=== PATIENT | male | born 1940 ===

== ENCOUNTER 2024-02-12 20:55 | Inpatient (IN) | payer MEDICARE, SELFPAY ==
--- NOTE | ~2024-02-12 | CT_ITS ---
EXAMINATION: CT HEAD WITHOUT CONTRAST CLINICAL INFORMATION: Altered mental status. COMPARISON: None available. TECHNIQUE: Contiguous axial imaging was performed from the skull base to vertex without intravenous administration of contrast. Multiplanar reformatted images and is submitted. This CT examination was performed using dose optimization techniques as appropriate, variously including the following: *Automated exposure control *Adjustment of mA and/or kV according to patient size (this includes techniques or standardized protocols for targeted exams where dose is matched to indication/reason for exam; i.e. extremities or head) *Use of iterative reconstruction technique DLP: A 73 mGy-cm FINDINGS: There is no acute intracranial hemorrhage or evidence of territorial infarction. No abnormal mass effect or midline shift is seen. Tompkins to white matter differentiation is well preserved. There is moderate patchy low attenuation change in the periventricular white matter spaces. The ventricles and sulci show proportional widening, commensurate with advanced age. No extra-axial fluid collections are identified. The calvarium and scalp soft tissues are normal. The middle ear cavity and mastoid air cells are clear. There is opacification of several of the bilateral ethmoid air cells. The remaining visualized paranasal sinuses are clear. CT/CT head/brain wo IV con IMPRESSION: 1. No acute intracranial pathology. 2. There is patchy low attenuation change in the periventricular white matter spaces, commonly associated with chronic microangiopathy. 3. There is bilateral ethmoid sinusitis. Electronically signed by: Chiki Luna MD 02/14/2024 10:40 PM EDT
[2024-02-12 21:41] VITALS: BMI 22.8
--- NOTE | 2024-02-12 22:39 | PC.ADMIT ---
pt arrived via stretcher at 211902-12-24 with [address] pt is a hospital to hospital transfer. he was previously at [facility] in [place]. originally pt has sent t0 rust from [facility] d/t concerns of disinhibited behaviors. as per medical record pt had made threats to staff which he claimed he would use weapons to hurt them. pt is awake and is able to only state his name correctly. he is profoundly confused.. pt is unable to give an meaningful information other than his name. he does not know his birthday. previous medical hx will be extracted from medical record. pt is pleasant and cooperative. he will follow simple command. he responds in simple 1-2 word responses. skin surfaces inspected by myself and franklin oliva RN. there are numerous bruises noted on skin surfaces of upper extremities. a foam dsg is noted on right forearm and inspection of area reveals a small full thickness wounds which has the appearance of an avulsion. a clonidine patch is noted on right arm. skin turgor has decreased elastic rebound and oral mucosa is desiccated. pt looks dry. he is given a sip of bottled water and has difficulty swallowing. vss 97.2 p 73 rr 16 95% 159/77 resp effort is regular unlabored. abdomen flat/soft/nontender. scrotum is swollen and soft. also of interest is left wrist is in a soft splint. unfortunately pt experienced distal radius fx (fx 6 weeks old) left hand fingers are warm to touch and pt is able to wiggle fingers on left hand.no edema of legs noted. dr wharton notified of admission.
--- NOTE | 2024-02-13 01:54 | PC.NURSE ---
pt agitated and stating that he is going to murder me. pt has fist clenched and attempted to punch at me with closed fist. trazadone and risperidal ground and placed in chocolate ice cream. pt spit medication out stating get the fuck away from me. 1 to [address],.
[2024-02-13 08:15] LABS: Estimated Average Glucose 94 mg/dL; Hemoglobin A1C 126.2659 umol/L; Hemoglobin A1c % 4.9 % (<6.0); Total Hemoglobin (HGBA1C) 4197.6818 umol/L
[2024-02-13 08:17] VITALS: BP 170/87; PULSE 85; RESP 24; TEMP 37.1; O2SAT 92
[2024-02-13 08:24] LABS: Alanine Aminotransferase 29 U/L (0-40); Alkaline Phosphatase 83 U/L (39-117); Anion Gap 17 (12-20); Aspartate Amino Transferase 25 U/L (5-37); Bilirubin Total 1.3 mg/dL (0.0-1.0); Blood Urea Nitrogen 24 mg/dL (9-16); Calcium 9.7 mg/dL (8.4-10.2); Carbon Dioxide 20 mmol/L (22-29); Chloride 107 mmol/L (96-108); Cholesterol 149 mg/dL (<200); Creatinine Clr Calc Pharmacy 83.1; Estimated Glomerular Filt Rate > 60; Glucose Fasting 84 mg/dL (60-99); HDL Cholesterol 38 mg/dL (>40); LDL Cholesterol Calculated 95 mg/dL (<100); Potassium 4.1 mmol/L (3.3-5.1); Sodium 140 mmol/L (135-145); Total Protein 6.5 g/dL (6.5-8.0); Triglycerides 84 mg/dL (<150)
[2024-02-13] MEDS: Miconazole Nitrate 2% Powder 85 GM Bottle 1 APPL TOPICAL (08:58)
--- NOTE | 2024-02-13 09:51 | HO.PSYADMNOT ---
HPI Date of Service: 02/12/24 Chief Complaint: Psych Sources of Information: patient interviewed, chart reviewed and crisis/core team assessment reviewed HPI Subjective Notes: Section 12B Narrative: Mr. Yung is an 83 year-old male who was initially brought to [facility] from [facility]) due to increase confusion. He was transferred to [facility] due to head CT showing possible subarachnoid hemorrhage. Repeat head CT and MRI at [facility] showed no acute territorial infarct, space-occupying lesion, or intracranial hemorrhage and no evidence of a right frontal hyperdensity. He was medically admitted due to increase confusion, speech mostly non sensical. Labs on 02/06/2024 included cbc with no leukocytosis; CMP with no electrolyte abnormalities, BUN 12, Cr 0.81. ALT 17, AST 22. UA without sign of UTI. Utox negative. He had episode of urinary retention which resolved. Medical records from [facility] describes pt as having combative behaviors, kicking, spitting, not ambulating. He required IM medication but it appears that olanzapine low dose was overly sedation. He did not take oral medications. BP pressured noted to be elevated. He was started on clonidine patch. He was not seem by neurology while at [facility]. On the unit, pt was in bed, mumbles, few clear words. He said to this senior technical writer I need to talk with Sesar. He them mumbled. When asked following questions to elaborate, he then says few other words unrelated to his initial statement. He smiles at times. He is lying in bed. Not able to follow most commands. Later he presented slightly more talkative, able to say that he has children who are in [place]. He was not able to tell name of his . 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 He does not know where he is nor the situation. He is not able to tell the month or year. He is alert, in bed, not ambulating. Past Psychiatric History: Inpt: none OP: none Medical Evaluation Reviewed: Yes [facility] Medical History Hypertension Dementia with behavioral disturbance Family History: unknown Social History: Pt originally from [place]. He has Diagnostics Vital Signs (24Hr): Vital Signs - 24 hr 02/13/24 08:17 Temperature 98.8 F Pulse Rate 85 Respiratory Rate 24 H Blood Pressure 170/87 H Pulse Oximetry 92 Oxygen Delivery Method Room Air BMI result Body Mass Index 22.8 Labs 02/14/24 11:10 02/14/24 11:10 Labs: Laboratory Results - last 48 hr 02/13/24 07:39 Sodium 140 Potassium 4.1 Chloride 107 Carbon Dioxide 20 L Anion Gap 17 BUN 24 H Creatinine 0.74 Estim Creat Clear Calc 83.1 Estimated GFR > 60 Fasting Glucose 84 Estimat Average Glucose 94 Hemoglobin A1c % 4.9 Calcium 9.7 Total Bilirubin 1.3 H AST 25 ALT 29 Alkaline Phosphatase 83 Total Protein 6.5 Albumin 4.0 Triglycerides 84 Cholesterol 149 LDL Cholesterol, Calc 95 HDL Cholesterol 38 L Meds/Allergies Meds Home Medications ?Medication ?Instructions ?Recorded ?Confirmed ?Type acetaminophen 325 mg tablet 650 mg PO Q6H PRN Headache/Pain 02/14/24 02/14/24 History (Scale Score 1-3) aluminum-mag hydroxide-simethicone 30 ml PO Q6H PRN Constipation 02/14/24 02/14/24 History 200 mg-200 mg-20 mg/5 mL oral susp magnesium hydroxide 400 mg/5 mL 30 ml PO DAILY PRN Constipation 02/14/24 02/14/24 History oral suspension (Milk of Magnesia) nicotine (polacrilex) 4 mg gum 4 mg buccal Q2H PRN Nicotine 02/14/24 02/14/24 History Cravings trazodone 50 mg tablet 25 mg PO BEDTIME PRN Insomnia 02/14/24 02/14/24 History Allergies Allergies Allergy/AdvReac Type Severity Reaction Status Date / Time No Known Allergies Allergy Verified 02/12/24 21:44 Mental Status Exam Mental Status Exam Narrative: Pt alert, not oriented to place, situation, month or year. Few words are clear. Most unintelligible. at times grabbing things that are not there. Assessment & Plan Assessment & Plan (1) Encephalopathy: Status: Acute Qualifiers: Encephalopathy type: unspecified encephalopathy Qualified Code(s): G93.40 - Encephalopathy, unspecified Code(s): G93.40 - Encephalopathy, unspecified Plan Mr. Yung initially was brought to [facility] due to increase confusion and combative behaviors. Pt was then transferred to [facility] due to suspicious of right frontal MARIBEL. Repeat CT was negative for MARIBEL. Medical work up included cbc (no leukocytosis), cmp (without electrolytes abnormalities). UA neg for UTI. He presents as delirious. Will consult with neurology as to need for additional work up. He was not seen by neurology at [facility]. Patient educated on: diagnosis (step daughter informed) Reason for continued inpatient stay Substantial Risk for: inability to function Statement Statement: I have reviewed the history and physical and performed a pertinent examination on my patient. No changes have occurred unless specified. If the History and Physical was not performed prior to admission, the Hospitalist's service will be consulted for completing the admission physical. Time Spent With Patient Time: Total time managing care of this patient today ____ minutes.
--- NOTE | 2024-02-13 11:35 | HO.PM.IMCN ---
History of Present Illness Data of Consult Service Date: 02/13/24 Primary Care Provider: Unknown Physician HPI Reason for consult: Admission H&P Pt is an 83-year-old male with a PMH significant for?dementia with behavioral disturbances and HTN who is admitted to [facility] for for worsening confusion, inability to take care of self at home, and HI. Patient comes from assisted living in [place] were staff there have noticed he has been acting increasingly confused, disorganized, and has been unable to live independently. Patient also has been making verbal threats towards staff claiming he would use weapons to hurt them. Patient initially transferred to [facility] where he was treated for starvation ketoacidosis with IVF. Medical consult for admission H&P. ?Patient seen and examined at bedside where he is initially unable to recall his name, though eventually provides his 1st name. Does not answer appropriately when asked his last name is. Patient is unable to provide any meaningful HPI. Review of records indicates patient has noted to have reduced p.o. intake. Nursing here on the unit state pt has not been eating and spitting out his medications. Nursing noted patient appears to have scrotal swelling. Labs reviewed and CMP grossly unremarkable. BP has been elevated as high as 170/87. Review of Systems Review of Systems: Yes Unobtainable due to mental status [facility] Medical History (Updated 02/13/24 @ 12:47 by LEN Oro) Hypertension Dementia with behavioral disturbance Social History Household Members: None Housing: Senior [facility] Do you presently have visiting nurse or other home services: No Patient Tobacco Use Status: Tobacco use Unknown Use of substances other than those prescribed or required for medical reasons: Unable to respond Currently Displaying Signs/Symptoms of Drug Intoxication Withdrawal: No Advance Directives: No Advance Directives Information Provided: No Do you have thoughts of harming others: None Do you have a plan to hurt others: No Plan Recently lost weight without trying: Unsure Nutrition Risks: Anorexia, Difficulty swallowing, Emaciation/Cachexia and Poor intake 0-25% >4 days Poor oral hygiene: Yes Meds Allergies Allergy/AdvReac Type Severity Reaction Status Date / Time No Known Allergies Allergy Verified 02/12/24 21:44 Active Medications: Current Medications Acetaminophen (Acetaminophen 325 Mg Tablet) 650 mg PO Q6H PRN PRN Reason: Headache/Pain Mild Scale (1-3) Al Hydroxide/Mg Hydroxide (Magnesium Hydrox/Alum Hydrox 30 Ml Oral.Susp) 30 ml PO Q6H PRN PRN Reason: Heartburn/Nausea Clonidine (Clonidine 0.1 Mg Patch.Tdwk) 0.1 mg TRANSDERMA Tu@0900 [facility]; Protocol Magnesium Hydroxide (Milk Of Magnesia 30 Ml Oral.Susp) 30 ml PO DAILY PRN PRN Reason: Constipation Miconazole Nitrate (Miconazole Nitrate 2% Powder 85 Gm Bottle) 1 appl TOPICAL BID [facility]; Protocol Last Admin: 02/13/24 08:58 Dose: 1 appl Nicotine Polacrilex (Nicotine Polacrilex 2 Mg Gum) 4 mg BUCCAL Q2H PRN PRN Reason: Nicotine Cravings Non-Formulary Medication (Ramelteon) 8 mg PO BEDTIME JUAN PABLO Olanzapine (Olanzapine 2.5 Mg Tablet) 2.5 mg PO TID PRN PRN Reason: agitation Polyethylene Glycol (Polyethylene Glycol 3350 17 Gm Powd.Pack) 17 gm PO DAILY [facility] Last Admin: 02/13/24 08:21 Dose: Not Given Risperidone (Risperidone 0.5 Mg Tablet) 0.5 mg PO BID PRN PRN Reason: Agitation Trazodone HCl (Trazodone Hcl 25 Mg Halftab) 25 mg PO BEDTIME MRX1 PRN PRN Reason: Insomnia Home Medications ?Medication ?Instructions ?Recorded ?Confirmed ?Last Taken ?Type clonidine 0.1 mg/24 hr weekly 1 patch transdermal QWEEK 02/12/24 02/12/24 02/11/24 17:14 History transdermal patch haloperidol 0.5 mg tablet 0.25 mg PO QID PRN Agitation 02/12/24 02/12/24 Unknown History miconazole nitrate 2 % topical 1 appl topical BID 02/12/24 02/12/24 02/12/24 12:35 History powder polyethylene glycol 3350 17 gram 17 g PO DAILY 02/12/24 02/12/24 02/12/24 09:54 History oral powder packet ramelteon 8 mg tablet 8 mg PO BEDTIME 02/12/24 02/12/24 02/12/24 18:26 History risperidone 0.5 mg tablet 0.5 mg PO BID PRN Agitation 02/12/24 02/12/24 02/06/24 22:23 History Physical Exam Vital Signs and Narrative: Vital Signs: Last Vital Signs Temp 98.8 F 02/13/24 08:17 Pulse 85 02/13/24 08:17 Resp 24 H 02/13/24 08:17 BP 170/87 H 02/13/24 08:17 Pulse Ox 92 02/13/24 08:17 O2 Del Method Room Air 02/13/24 08:17 BMI result Body Mass Index 22.8 General: Alert and oriented to self only, only occasionally following basic commands, EENT: Mucous membranes dry Resp: CTA bilaterally CVS: S1, S2, RRR GI: +BS, NT, no distention : mild scrotal swelling, nontender Skin: Warm, dry Neuro: Cranial nerves II-XII grossly intact bilaterally. Globalized weakness noted. Wiggles toes but does not move lower legs Extremities: No edema Psych: Pleasantly confused Results Labs 02/13/24 07:39 Labs: Laboratory Results - last 24 hr 02/13/24 07:39 Anion Gap 17 Estim Creat Clear Calc 83.1 Estimated GFR > 60 Fasting Glucose 84 Estimat Average Glucose 94 Hemoglobin A1c % 4.9 Calcium 9.7 Total Bilirubin 1.3 H AST 25 ALT 29 Alkaline Phosphatase 83 Total Protein 6.5 Albumin 4.0 Triglycerides 84 Cholesterol 149 LDL Cholesterol, Calc 95 HDL Cholesterol 38 L Assessment and Plan (1) Medical clearance for psychiatric admission: Status: Acute Plan Pt is an 83-year-old male with a PMH significant for?dementia with behavioral disturbances and HTN who is admitted to [facility] for for worsening confusion, inability to take care of self at home, and HI. Patient comes from assisted living in [place] were staff there have noticed he has been acting increasingly confused, disorganized, and has been unable to live independently. Patient also has been making verbal threats towards staff claiming he would use weapons to hurt them. Patient initially transferred to [facility] where he was treated for starvation ketoacidosis with IVF. Medical consult for admission H&P. Mood disorder Plan as per Psychiatry Scrotal swelling ?Hydrocele Consider scrotal ultrasound once and goals of care established family HTN BP as high as 170/87 Patient has been refusing p.o. medications Continue clonidine patch, consider increasing to 0.2mg if hypertension persists Thank you for allowing us to participate in the care of this patient. Signing off at this time. Please re-consult if any acute complaints or issues arise.
[2024-02-13] MEDS: Enoxaparin Sodium 40 MG/0.4 ML SYRINGE SUBCUT (15:31)
[2024-02-13 20:00] VITALS: BP 172/82; PULSE 79; RESP 18; TEMP 36.4; O2SAT 95
[2024-02-13 21:21] VITALS: BP 168/70; PULSE 83; RESP 16; O2SAT 94
[2024-02-13] MEDS: OLANZapine 2.5 MG TABLET PO (21:24)
[2024-02-13] MEDS: risperiDONE 0.5 MG TABLET PO (21:24)
[2024-02-13] MEDS: traZODone HCL 25 MG HALFTAB PO (21:24)
[2024-02-14] MEDS: traZODone HCL 25 MG HALFTAB PO (03:39)
[2024-02-14 08:00] VITALS: BP 172/82; PULSE 79; RESP 18; TEMP 37.1; O2SAT 96
--- NOTE | 2024-02-14 10:47 | MHC.CLN ---
NUTRITION PATIENT WITH HX POOR PO INTAKE DURING PRIOR HOSPITALIZATION. DOES NOT DRINK MUCH. ADDING MAGIC CUP BID TO PROMOTE NUTRITIONAL INTAKE. SUPPLEMENT PROVIDES 580 KCALS, 18 G PROTEIN. FOLLOW FOR PO INTAKE AND PLAN OF CARE.
[2024-02-14 11:15] LABS: MANUAL DIFF FLAG NO
[2024-02-14 11:18] LABS: Basophils Percent Auto 0.4 % (0-2); Eosinophils Absolute Auto 0.1 X10*3/uL (0.0-0.4); Eosinophils Percent Auto 0.7 % (0-4); Hematocrit 46.2 % (42.0-52.0); Hemoglobin 16.6 g/dl (14.0-18.0); Imm Gran Abs Auto 0.04 X10*3/uL (0.00-0.03); Imm Gran Pct Auto 0.5 % (0.0-0.4); Lymphocytes Absolute Auto 0.7 X10*3/uL (1.2-4.9); Lymphocytes Percent Auto 9.9 % (20-40); Mean Corpuscular HGB Conc 35.9 g/dl (31.0-36.0); Mean Corpuscular Volume 89.2 fL (80.0-98.0); Mean Platelet Volume 9.9 fL (9.4-12.4); Monocytes Absolute Auto 0.6 X10*3/uL (0.1-1.2); Neutrophils Percent Auto 80.5 % (45-73); Platelet Count 239 X10*3/uL (160-400); Red Blood Count 5.18 X10*6/uL (4.60-5.80); Red Cell Distribution Width 12.6 % (11.0-16.0); White Blood Count 7.5 X10*3/uL (4.8-10.8)
[2024-02-14 11:38] LABS: Alanine Aminotransferase 27 U/L (0-40); Albumin Level 4.1 g/dL (3.5-5.0); Alkaline Phosphatase 85 U/L (39-117); Anion Gap 14 (12-20); Aspartate Amino Transferase 23 U/L (5-37); Bilirubin Total 0.9 mg/dL (0.0-1.0); Blood Urea Nitrogen 21 mg/dL (9-16); Calcium 10.1 mg/dL (8.4-10.2); Carbon Dioxide 27 mmol/L (22-29); Chloride 105 mmol/L (96-108); Creatinine Clr Calc Pharmacy 83.1; Estimated Glomerular Filt Rate > 60; Glucose Random 123 mg/dL (60-115); Potassium 4.3 mmol/L (3.3-5.1); Sodium 142 mmol/L (135-145); Total Protein 6.8 g/dL (6.5-8.0)
[2024-02-14 11:52] LABS: HIV AB/AG Nonreactive (Nonreactive); HIV Num 1 0.06 S/CO (0.00-0.99)
--- NOTE | 2024-02-14 12:05 | P.CNNE_ITS ---
History of Present Illness Data of Consult Service Date: 02/14/24 Primary Care Provider: Unknown Physician HPI Reason for consult: Encephalopathy 83 yo man with diagnosis of dementia was initially admitted in [facility] of the [facility] with change in mental status. He was in a residential facility for last couple of weeks and there he was noted to be much more agitated confused and making inappropriate gestures or showing inappropriate behavior. At times he was aggressive and angry. Apparently his [id number] Alcides new him better but I was not able to reach her. I did talk to this facility and a nurse there. Patient himself was unable to provide any meaningful history. Review of Systems 2 Review of Systems: Could not be done with him [facility] Past Medical History Medical History (Updated 02/14/24 @ 12:10 by Adrianna Seo MD) Hypertension Dementia with behavioral disturbance Social History Social History Household Members: None Housing: [facility] Do you presently have visiting nurse or other home services: No Comment: pt under 1 to 1 patient observation., Patient Tobacco Use Status: Tobacco use Unknown Use of substances other than those prescribed or required for medical reasons: Unable to respond Currently Displaying Signs/Symptoms of Drug Intoxication Withdrawal: No Advance Directives: No Advance Directives Information Provided: No Do you have thoughts of harming others: None Do you have a plan to hurt others: No Plan Recently lost weight without trying: Unsure Nutrition Risks: Anorexia, Difficulty swallowing, Emaciation/Cachexia and Poor intake 0-25% >4 days Poor oral hygiene: Yes service: Yes Sexual orientation: Straight/Heterosexual Meds Allergies Allergy/AdvReac Type Severity Reaction Status Date / Time No Known Allergies Allergy Verified 02/12/24 21:44 Active Medications: Current Medications Acetaminophen (Acetaminophen 325 Mg Tablet) 650 mg PO Q6H PRN PRN Reason: Headache/Pain Mild Scale (1-3) Al Hydroxide/Mg Hydroxide (Magnesium Hydrox/Alum Hydrox 30 Ml Oral.Susp) 30 ml PO Q6H PRN PRN Reason: Heartburn/Nausea Clonidine (Clonidine 0.1 Mg Patch.Tdwk) 0.1 mg TRANSDERMA Tu@0900 [facility]; Protocol Enoxaparin Sodium (Enoxaparin Sodium 40 Mg/0.4 Ml Syringe) 40 mg SUBCUT Q24H [facility] Last Admin: 02/13/24 15:31 Dose: 40 mg Magnesium Hydroxide (Milk Of Magnesia 30 Ml Oral.Susp) 30 ml PO DAILY PRN PRN Reason: Constipation Miconazole Nitrate (Miconazole Nitrate 2% Powder 85 Gm Bottle) 1 appl TOPICAL BID [facility]; Protocol Last Admin: 02/13/24 21:35 Dose: Not Given Nicotine Polacrilex (Nicotine Polacrilex 2 Mg Gum) 4 mg BUCCAL Q2H PRN PRN Reason: Nicotine Cravings Polyethylene Glycol (Polyethylene Glycol 3350 17 Gm Powd.Pack) 17 gm PO DAILY [facility] Last Admin: 02/13/24 08:21 Dose: Not Given Risperidone (Risperidone Oral Peg 1 Mg/Ml Solution) 0.5 mg PO BID [facility] Trazodone HCl (Trazodone Hcl 25 Mg Halftab) 25 mg PO BEDTIME MRX1 PRN PRN Reason: Insomnia Last Admin: 02/14/24 03:39 Dose: 25 mg Home Medications ?Medication ?Instructions ?Recorded ?Confirmed ?Last Taken ?Type clonidine 0.1 mg/24 hr weekly 1 patch transdermal QWEEK 02/12/24 02/12/24 02/11/24 17:14 History transdermal patch haloperidol 0.5 mg tablet 0.25 mg PO QID PRN Agitation 02/12/24 02/12/24 Unknown History miconazole nitrate 2 % topical 1 appl topical BID 02/12/24 02/12/24 02/12/24 12:35 History powder polyethylene glycol 3350 17 gram 17 g PO DAILY 02/12/24 02/12/24 02/12/24 09:54 History oral powder packet ramelteon 8 mg tablet 8 mg PO BEDTIME 02/12/24 02/12/24 02/12/24 18:26 History risperidone 0.5 mg tablet 0.5 mg PO BID PRN Agitation 02/12/24 02/12/24 02/06/24 22:23 History Physical Exam 2 Vital Signs: Vital Signs: Last Vital Signs Temp 98.8 F 02/14/24 08:00 Pulse 7 L 02/14/24 08:00 Resp 18 02/14/24 08:00 BP 172/82 H 02/14/24 08:00 Pulse Ox 96 02/14/24 08:00 O2 Del Method Room Air 02/14/24 08:00 BMI result Body Mass Index 22.8 Neuro: Other: He is alert and awake make an eye contact tries to follow commands but not all of them. It told me that he was from [place] but did not know where he was. He was not consistently following all commands but sometime he would respond. He could not see or was ignoring anything in his right katiana visual field. Even in left visual field is perception was poor. He could not tell me what color of shirt I was wearing and could not tell me fingers even showed close to him. He was able to repeat simple words. He was struggling to name a benign on. There was moderate grasp reflex. Deep tendon reflexes were absent with flexor plantars. Pupils were round reactive. There was no obvious facial asymmetry. No obvious dysarthria was noted. Results Labs 02/14/24 11:10 02/14/24 11:10 Labs: Short CBC 02/14/24 Range/Units 11:10 WBC 7.5 (4.8-10.8) X10*3/uL Hgb 16.6 (14.0-18.0) g/dl Hct 46.2 (42.0-52.0) % Plt Count 239 (160-400) X10*3/uL BMP 02/14/24 11:10 Sodium 142 Potassium 4.3 Chloride 105 Carbon Dioxide 27 BUN 21 H Creatinine 0.74 Calcium 10.1 Liver Function 02/14/24 Range/Units 11:10 Total Bilirubin 0.9 (0.0-1.0) mg/dL AST 23 (5-37) U/L ALT 27 (0-40) U/L Alkaline Phosphatase 85 (39-117) U/L Albumin 4.1 (3.5-5.0) g/dL noncontrast head CT revealed moderately severe diffuse cerebral atrophy and moderately severe chronic microvascular ischemic changes. No obvious acute lesion was noted. Assessment and Plan (1) Encephalopathy: Qualifiers: Encephalopathy type: unspecified encephalopathy Qualified Code(s): G 93.40 - Encephalopathy, unspecified Status: Acute 83 years old man who probably has underlying multifactorial degenerative + vascular dementia. His precise pass or recent neuropsychiatric history was not available. I tried calling his daughter Alcides but I was not able to get hold of her. I did talk to the facility where he was where, during last 2 weeks, significant behavioral issues were noted. 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 His head CT revealed moderately severe cerebral atrophy and microvascular ischemic changes, not clearly explaining his current neuropsychiatric status, especially psychiatric. Differential diagnosis included worsening of dementia with Lewy body disease or alcoholic dementia, atypical infections such as syphilis or Lyme, or Creutzfeldt-Umair disease. Many of these entities are relatively easy to diagnosed and he was seen at [facility] in [place] and might have been investigated. We do not have exact medical records specially CD to review his brain MRI in laboratories or if there was in neurology consultation. In any case, test for Lyme a syphilis has been ordered. A noncontrast MRI of brain usually can help to make diagnosis of Creutzfeldt-Umair disease, though sometime at requires testing on spinal fluid. Analysis of spinal fluid, can also help to rule out inflammatory and infectious etiologies. An EEG can help to rule out epileptic encephalopathy and also put some light into possibility of Creutzfeldt-Umair disease. Procedures Date of Service Date of Service: 02/14/24
[2024-02-14] MEDS: Miconazole Nitrate 2% Powder 85 GM Bottle 1 APPL TOPICAL (14:23)
--- NOTE | 2024-02-14 15:40 | PM.PSYDC ---
DS: Providers Provider Date of Service: 02/14/24 Date of admission: 02/12/24 20:55 Date of discharge: 02/14/24 Primary care physician: Unknown Physician Consults: 02/12/24 21:54 Consult to Hospitalist Routine Comment: Consulting Provider: Hospitalist Reason For Exam: admission physical; scrotal swelling 02/13/24 13:43 Consult to Neurology Routine Consulting Provider: [facility] Reason for consultation: rapid decline functioning/cognition Has provider been notified: Yes Discharging clinician: Amirah Gomez DS: Diagnosis Discharge Diagnosis (1) Encephalopathy: Status: Acute DS: Medications Discharge Medications Home Medications: Home Medications ?Medication ?Instructions ?Recorded ?Confirmed clonidine 0.1 mg/24 hr weekly 1 patch transdermal QWEEK 02/12/24 02/12/24 transdermal patch haloperidol 0.5 mg tablet 0.25 mg PO QID PRN Agitation 02/12/24 02/12/24 miconazole nitrate 2 % topical 1 appl topical BID 02/12/24 02/12/24 powder polyethylene glycol 3350 17 gram 17 g PO DAILY 02/12/24 02/12/24 oral powder packet ramelteon 8 mg tablet 8 mg PO BEDTIME 02/12/24 02/12/24 risperidone 0.5 mg tablet 0.5 mg PO BID PRN Agitation 02/12/24 02/12/24 Mental Status Exam Mental Status Exam Narrative: Pt alert, not oriented to place, situation, month or year. Few words are clear. Most unintelligible. at times grabbing things that are not there. Data Data Completed and Pending Completed studies during hospitalization [Text1]: 02/13/24 02/14/24 07:39 11:10 WBC 7.5 RBC 5.18 Hgb 16.6 Hct 46.2 MCV 89.2 MCH 32.0 MCHC 35.9 RDW 12.6 Plt Count 239 MPV 9.9 Immature Gran % (Auto) 0.5 H Neut % (Auto) 80.5 H Lymph % (Auto) 9.9 L [place] % (Auto) 8.0 Eos % (Auto) 0.7 Baso % (Auto) 0.4 Lymph # (Auto) 0.7 L [place] # (Auto) 0.6 Eos # (Auto) 0.1 Baso # (Auto) 0.0 Abs Immat Gran (auto) 0.04 H Absolute Neuts (auto) 6.0 Absolute Nucleated RBC 0.000 Nucleated RBC % (auto) 0.0 Sodium 140 142 Potassium 4.1 4.3 Chloride 107 105 Carbon Dioxide 20 L 27 Anion Gap 17 14 BUN 24 H 21 H Creatinine 0.74 0.74 Estim Creat Clear Calc 83.1 83.1 Estimated GFR > 60 > 60 Random Glucose 123 H Fasting Glucose 84 Estimat Average Glucose 94 Hemoglobin A1c % 4.9 Calcium 9.7 10.1 Total Bilirubin 1.3 H 0.9 AST 25 23 ALT 29 27 Alkaline Phosphatase 83 85 Total Protein 6.5 6.8 Albumin 4.0 4.1 Triglycerides 84 Cholesterol 149 LDL Cholesterol, Calc 95 HDL Cholesterol 38 L RPR Titer Pending RPR Pending Lyme Screen IgG & IgM Pending Lyme Progressive Test Pending HIV 1&2 Ab/P24 Ag 4thGn Nonreactive DS: Summary Hospital Course Hospital Course: Mr. Yung is an 83 year-old male who was initially brought to [facility] from [facility]) due to increase confusion. He was transferred to [facility] due to head CT showing possible subarachnoid hemorrhage. Repeat head CT and MRI at [facility] showed no acute territorial infarct, space-occupying lesion, or intracranial hemorrhage and no evidence of a right frontal hyperdensity. He was medically admitted due to increase confusion, speech mostly non sensical. Labs on 02/06/2024 included cbc with no leukocytosis; CMP with no electrolyte abnormalities, BUN 12, Cr 0.81. ALT 17, AST 22. UA without sign of UTI. Utox negative. He had episode of urinary retention which resolved. Medical records from [facility] describes pt as having combative behaviors, kicking, spitting, not ambulating. He required IM medication but it appears that olanzapine low dose was overly sedation. He did not take oral medications. BP pressured noted to be elevated. He was started on clonidine patch. He was not seem by neurology while at [facility]. On the unit, pt was in bed, mumbles, few clear words. He said to this proposal writer I need to talk with Sesar. He them mumbled. When asked following questions to elaborate, he then says few other words unrelated to his initial statement. He smiles at times. He is lying in bed. Not able to follow most commands. Later he presented slightly more talkative, able to say that he has children who are in [place]. He was not able to tell name of his . 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 He does not know where he is nor the situation. He is not able to tell the month or year. He is alert, in bed, not ambulating. Past Psychiatric History: Inpt: none OP: none Medical Evaluation Reviewed: Yes HOSPITAL COURSE On the unit, pt was admitted on sect 12b. reviewed of records from [facility]. It appears pt was not seen by neurology. placed neurology consult to consider further medical work up for his presentation. Neurology recommended repeat MRI, eeg, and based on this consider LP. Discussed with hospitalist transferred to medical floor as main intervention at this point is medical, not psychiatric and he is in need of IV fluid due to decrease oral intake. Time Spent with Patient Time attestation: Total time managing care of this patient today ____ minutes. Discharge Plan Discharge Anticipated Discharge Date/Time: 02/14/24 15:40 Patient Disposition: er Acute Care Hospital Discharge Diagnosis: Encephalopathy Referrals: Physician,Unknown J [Primary Care Provider] - 1 Week Discharge Medications: New clonidine 0.1 mg/24 hr Patch Weekly 0.1 mg transdermal Tu@0900 Qty: 0 0RF Protocol: Hold for SBP< HOLD for SBP < : 90 polyethylene glycol 3350 17 gram Powder In Packet 17 g PO DAILY Qty: 0 0RF miconazole nitrate [Micro-Guard] 2 % Powder 1 appl topical BID Qty: 0 0RF Protocol: Apply to: Apply to: affected area risperidone [Risperdal] 1 mg/mL Solution 0.5 mg PO BID Qty: 0 0RF enoxaparin 40 mg/0.4 mL Syringe 40 mg subcut Q24H Qty: 0 0RF Discontinued clonidine 0.1 mg/24 hr Patch Weekly 1 patch TRANSDERMAL QWEEK polyethylene glycol 3350 17 gram Powder In Packet 17 g PO DAILY Rx Instructions: for 3 days. miconazole nitrate 2 % Powder 1 appl TOPICAL BID ramelteon 8 mg Tablet 8 mg PO BEDTIME haloperidol [Haldol] 0.5 mg Tablet 0.25 mg PO QID PRN (Reason: Agitation) risperidone 0.5 mg Tablet 0.5 mg PO BID PRN (Reason: Agitation) No Action acetaminophen 325 mg Tablet 650 mg PO Q6H PRN (Reason: Headache/Pain (Scale Score 1-3)) trazodone 50 mg Tablet 25 mg PO BEDTIME PRN (Reason: Insomnia) magnesium hydroxide [Milk of Magnesia] 400 mg/5 mL Suspension 30 ml PO DAILY PRN (Reason: Constipation) nicotine (polacrilex) 4 mg Gum 4 mg BUCCAL Q2H PRN (Reason: Nicotine Cravings) alum-mag hydroxide-simeth [Maalox] 200-200-20 mg/5 mL Suspension 30 ml PO Q6H PRN (Reason: Constipation) Rx Instructions: administer between meals and at bedtime Discharge Orders: Discharge Order (Routine); Ordered 02/14/24 Ordered By: Amirah Gomez Activity on Discharge: As tolerated Stand Alone Forms: Patient Portal Discharge page Print Language: Latvian Care Plan Goals: transferred to medicine for neurological work up Health Concerns: transferred to medicine for neurological work up Plan of Treatment: transferred to medicine for neurological work up Assessment: Pt alert, not oriented to place, situation, month or year. In bed. speech mostly non sensical, grabbing things that are not there. Discharge Date/Time: 02/14/24 18:20
[2024-02-14] MEDS: Enoxaparin Sodium 40 MG/0.4 ML SYRINGE SUBCUT (15:53)
[2024-02-18 16:38] LABS: RPR Rapid Plasma Reagin NON-REACTIVE (NON-REACTIVE)
[2024-02-18 21:18] LABS: Lyme Abs Screen <0.90 index
== END 2024-02-14 18:20 | disposition short-term general hospital (02) | DRG 884 ==
PROVIDERS: Psychiatry & Neurology Psychiatry; Admitting Provider Social Worker; Visit Provider Social Worker
DX: F03.918 Unspecified dementia, unspecified severity, with other behavioral disturbance (principal); G93.40 Encephalopathy, unspecified; I10 Essential (primary) hypertension; Z79.899 Other long term (current) drug therapy
CPT/HCPCS: 36415; 70450; 80053; 80061; 83036; 85025; 86592; 86617; 86618; 87389; J1650

== ENCOUNTER → 2024-02-12 20:55 | Outpatient (BNV) | payer MEDICARE, SELFPAY | PROVIDERS: Admitting Provider Social Worker; Visit Provider Student in an Organized Health Care Education/Training Program | DX: I10 Essential (primary) hypertension (principal); N49.2 Inflammatory disorders of scrotum | CPT/HCPCS: 99222 ==

== ENCOUNTER → 2024-02-12 20:55 | Outpatient (BNV) | payer MEDICARE, SELFPAY | PROVIDERS: Admitting Provider Social Worker; Visit Provider Psychiatry & Neurology Neurology | DX: G93.40 Encephalopathy, unspecified (principal); R41.82 Altered mental status, unspecified | CPT/HCPCS: 99223 ==

== ENCOUNTER → 2024-02-12 20:55 | Outpatient (BNV) | payer MEDICARE, SELFPAY | PROVIDERS: Admitting Provider Social Worker; Visit Provider Social Worker | DX: F29 Unspecified psychosis not due to a substance or known physiological condition (principal); G93.40 Encephalopathy, unspecified | CPT/HCPCS: 90792; 99238 ==

== ENCOUNTER 2024-02-14 18:44 | Inpatient (IN) | payer MEDICARE, SELFPAY ==
--- NOTE | ~2024-02-14 | MR_ITS ---
EXAMINATION: MR BRAIN WITHOUT CONTRAST CLINICAL INFORMATION: Encephalopathy, r/o Creutzfeldt-Nishant disease COMPARISON: None available. TECHNIQUE: MRI of the brain was obtained using routine sequences without contrast. FINDINGS: No acute intracranial hemorrhage or infarct. Scattered and confluent periventricular and deep white matter T2/FLAIR hyperintensities, nonspecific however commonly seen with small vessel ischemic disease. Diffuse prominence of the sulci with associated ex vacuo dilation of the ventricles compatible with global cerebral atrophy. No midline shift or hydrocephalus. No acute extra-axial fluid collections. The osseous structures are unremarkable. The pituitary gland, pineal gland and remaining midline structures are unremarkable. Sequela bilateral lens replacement. Otherwise, no acute orbital pathology. Mild mucosal thickening of the paranasal sinuses. Left mastoid effusion. MR/MR head/brain wo con IMPRESSION: 1. No acute intracranial abnormalities. No imaging findings to suggest CJD. 2. Global cerebral atrophy and chronic microangiopathy. Electronically signed by: Martell Saeed MD 02/16/2024 01:49 PM EDT
--- NOTE | ~2024-02-14 | FL_ITS ---
FLUOROSCOPIC LUMBAR PUNCTURE INDICATION: Concern for prion disease TECHNIQUE: The procedure was deemed medically necessary by 2 independent physicians. Prion disease precautions were undertaken. Patient was placed in the left lateral decubitus position on the fluoroscopy table. The back was prepped and draped in routine sterile fashion. Betadine was used as a skin antiseptic. Utilizing fluoroscopic guidance, the L2-3 level was accessed with a 22 gauge quinkie spinal needle and clear CSF fluid obtained. 10cc of fluid was sent for analysis. The needle was removed without immediate complications. Total fluoroscopy time: 1.9 minutes FL/FL guided lumbar puncture LP IMPRESSION: Successful fluoroscopic guided lumbar puncture at L2-L3. This procedure was performed by Paul Alonzo PA-C and supervised by Dr. Alonso. Electronically signed by: Errol Alonso MD 02/20/2024 02:03 PM EDT
--- NOTE | ~2024-02-14 | XR_ITS ---
EXAMINATION: XR ABDOMEN KUB CLINICAL INDICATION: MRI screening COMPARISON: No similar prior examinations are available for comparison. TECHNIQUE: Single view KUB of the abdomen was obtained. FINDINGS: No dilated air-filled loops of small bowel to suggest an obstructive process. Normal colonic stool burden. Surgical clips in the right upper abdomen suggesting prior cholecystectomy. Surgical clips of the right pelvis suggesting prior hernia repair. There are degenerative changes of the lumbar spine and hips. XR/XR KUB IMPRESSION: Nonobstructing bowel gas pattern. Electronically signed by: Selvin Mckenna MD 02/15/2024 12:28 PM EDT
--- NOTE | ~2024-02-14 | XR_ITS ---
EXAMINATION: XR CHEST CLINICAL INFORMATION: MRI screening COMPARISON: None available. TECHNIQUE: Frontal view of the chest was obtained. FINDINGS: Cardiac silhouette is normal in size. The lungs are mildly hypoinflated. There is no lobar consolidation. No gross pleural effusion. No pneumothorax. Surgical clips in the right upper abdomen suggest prior cholecystectomy. XR/XR chest 1V IMPRESSION: No acute pulmonary pathology. Electronically signed by: Selvin Mckenna MD 02/15/2024 04:16 PM EDT
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
[2024-02-14 19:01] VITALS: BP 170/82; PULSE 82; RESP 18; TEMP 36.5; O2SAT 95
--- NOTE | 2024-02-14 19:36 | PHA.MEDREC ---
Pharmacy Consult ? Medication Reconciliation Pharmacy has completed the medication reconciliation. Migration of profile from S1
[2024-02-14] MEDS: Lactated Ringers 1,000 ML 100 ML IVCONT (20:21)
[2024-02-14] MEDS: Miconazole Nitrate 2% Powder 85 GM Bottle 1 APPL TOPICAL (21:17)
[2024-02-14] MEDS: Enoxaparin Sodium 40 MG/0.4 ML SYRINGE SUBCUT (21:17)
[2024-02-14] MEDS: cloNIDine 0.1 MG PATCH.TDWK TRANSDERMA (21:18)
[2024-02-14] MEDS: 0.9 % Sodium Chloride Flush 3 ML SYRINGE IVFLUSH (22:53)
[2024-02-15] VITALS: BP 176/82; PULSE 73; RESP 16; TEMP 36.5; O2SAT 93
[2024-02-15 04:00] VITALS: BP 162/78; PULSE 72; RESP 16; TEMP 36.7; O2SAT 93
[2024-02-15] MEDS: Lactated Ringers 1,000 ML 100 ML IVCONT ×2 (06:31→16:35)
[2024-02-15 07:01] LABS: MANUAL DIFF FLAG NO
[2024-02-15 07:13] LABS: Basophils Absolute Auto 0.1 X10*3/uL (0.0-0.2); Basophils Percent Auto 0.8 % (0-2); Eosinophils Absolute Auto 0.1 X10*3/uL (0.0-0.4); Eosinophils Percent Auto 0.7 % (0-4); Hemoglobin 15.4 g/dl (14.0-18.0); Imm Gran Abs Auto 0.06 X10*3/uL (0.00-0.03); Imm Gran Pct Auto 0.8 % (0.0-0.4); Mean Corpuscular Volume 91.5 fL (80.0-98.0); Mean Platelet Volume 10.3 fL (9.4-12.4); Monocytes Absolute Auto 0.8 X10*3/uL (0.1-1.2); Monocytes Percent Auto 11.4 % (2-11); Neutrophils Absolute Auto 5.2 x10*3/uL (2.0-8.3); Neutrophils Percent Auto 72.3 % (45-73); Platelet Count 236 X10*3/uL (160-400); Red Blood Count 4.81 X10*6/uL (4.60-5.80); Red Cell Distribution Width 12.9 % (11.0-16.0); White Blood Count 7.2 X10*3/uL (4.8-10.8)
[2024-02-15 07:23] LABS: Alanine Aminotransferase 19 U/L (0-40); Albumin Level 3.6 g/dL (3.5-5.0); Alkaline Phosphatase 73 U/L (39-117); Anion Gap 12 (12-20); Aspartate Amino Transferase 21 U/L (5-37); Blood Urea Nitrogen 23 mg/dL (9-16); Calcium 9.5 mg/dL (8.4-10.2); Carbon Dioxide 24 mmol/L (22-29); Chloride 110 mmol/L (96-108); Estimated Glomerular Filt Rate > 60; Glucose Random 103 mg/dL (60-115); Potassium 3.7 mmol/L (3.3-5.1); Sodium 142 mmol/L (135-145); Total Protein 5.9 g/dL (6.5-8.0)
[2024-02-15 08:00] VITALS: BP 176/84; PULSE 77; RESP 18; TEMP 36.2; O2SAT 94
[2024-02-15] MEDS: Miconazole Nitrate 2% Powder 85 GM Bottle 1 APPL TOPICAL ×2 (08:16→21:14)
[2024-02-15] MEDS: 0.9 % Sodium Chloride Flush 3 ML SYRINGE IVFLUSH ×3 (08:17→21:14)
--- NOTE | 2024-02-15 09:03 | P.PNIM_ITS ---
Subjective Subjective Date of Service: 02/15/24 Review of Systems Review of Systems: Yes Unobtainable due to mental status Physical Exam 2 Vital Signs: Vital Signs: Last Vital Signs Temp 97.2 F 02/15/24 08:00 Pulse 77 02/15/24 08:00 Resp 18 02/15/24 08:00 BP 176/84 H 02/15/24 08:00 Pulse Ox 94 02/15/24 08:00 O2 Del Method Room Air 02/15/24 08:00 alert, calm, confused Objective Data Active Medications Acetaminophen (Acetaminophen 325 Mg Tablet) 650 mg PO Q6H PRN PRN Reason: Pain, Mild (Pain Scale 1-3), fever or headache Al Hydroxide/Mg Hydroxide (Magnesium Hydrox/Alum Hydrox 30 Ml Oral.Susp) 30 ml PO Q6H PRN PRN Reason: Constipation Benzonatate (Benzonatate 100 Mg Capsule) 100 mg PO TID PRN PRN Reason: Cough Calcium Carbonate (Calcium Carbonate 750 Mg Tab.Chew) 750 mg PO Q4H PRN PRN Reason: Heartburn Clonidine (Clonidine 0.1 Mg Patch.Tdwk) 0.1 mg TRANSDERMA Tu@0900 [facility]; Protocol Enoxaparin Sodium (Enoxaparin Sodium 40 Mg/0.4 Ml Syringe) 40 mg SUBCUT Q24H [facility] Last Admin: 02/14/24 21:17 Dose: 40 mg Documented By: SIMONA Lactated Ringer's (Lr) 1,000 mls @ 100 mls/hr IVCONT .Q10H [facility] Last Admin: 02/15/24 06:31 Dose: 100 mls/hr Documented By: SIMONA Lorazepam (Lorazepam 2 Mg/Ml Vial) 2 mg IVPUSH ONCE PRN PRN Reason: Prior to EEG Lorazepam (Lorazepam 2 Mg/Ml Vial) 2 mg IVPUSH ONCE PRN PRN Reason: Prior to MRI Magnesium Hydroxide (Milk Of Magnesia 30 Ml Oral.Susp) 30 ml PO DAILY PRN PRN Reason: Constipation Melatonin (Melatonin 3 Mg Tablet) 6 mg PO BEDTIME PRN PRN Reason: Insomnia Miconazole Nitrate (Miconazole Nitrate 2% Powder 85 Gm Bottle) 1 appl TOPICAL BID [facility]; Protocol Last Admin: 02/15/24 08:16 Dose: 1 appl Documented By: SHLOMO Nicotine Polacrilex (Nicotine Polacrilex 2 Mg Gum) 4 mg BUCCAL Q2H PRN PRN Reason: Nicotine Cravings Ondansetron HCl (Ondansetron Hcl 4 Mg/2 Ml Vial) 4 mg IVPUSH Q8H PRN PRN Reason: Nausea and Vomiting Polyethylene Glycol (Polyethylene Glycol 3350 17 Gm Powd.Pack) 17 gm PO DAILY [facility] Last Admin: 02/15/24 08:17 Dose: Not Given Documented By: SHLOMO Non-Admin Reason: Patient Refused Risperidone (Risperidone Oral Peg 1 Mg/Ml Solution) 0.5 mg PO BID [facility] Last Admin: 02/15/24 08:17 Dose: Not Given Documented By: SHLOMO Non-Admin Reason: Patient Refused Sodium Chloride (0.9 % Sodium Chloride Flush 3 Ml Syringe) 3 ml IVFLUSH QSHIFT [facility] Last Admin: 02/15/24 08:17 Dose: 3 ml Documented By: SHLOMO Trazodone HCl (Trazodone Hcl 25 Mg Halftab) 25 mg PO BEDTIME PRN PRN Reason: Insomnia Labs 02/15/24 06:10 02/15/24 06:10 Labs: Laboratory Results - last 24 hr 02/15/24 06:10 MCV 91.5 MCH 32.0 MCHC 35.0 RDW 12.9 Plt Count 236 MPV 10.3 Immature Gran % (Auto) 0.8 H Neut % (Auto) 72.3 Lymph % (Auto) 14.0 L [place] % (Auto) 11.4 H Eos % (Auto) 0.7 Baso % (Auto) 0.8 Lymph # (Auto) 1.0 L [place] # (Auto) 0.8 Eos # (Auto) 0.1 Baso # (Auto) 0.1 Abs Immat Gran (auto) 0.06 H Absolute Neuts (auto) 5.2 Absolute Nucleated RBC 0.000 Nucleated RBC % (auto) 0.0 Anion Gap 12 Estim Creat Clear Calc TNP Estimated GFR > 60 Random Glucose 103 Calcium 9.5 Total Bilirubin 1.0 AST 21 ALT 19 Alkaline Phosphatase 73 Total Protein 5.9 L Albumin 3.6 Assessment and Plan (1) Acute encephalopathy: Status: Acute Plan 83M PMH htn, unspecified dementia, admitted to [facility] 02/13/24 for FTT, not taking meds or food, transfered to [facility] 02/14/24. 

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
[2024-02-15 11:50] VITALS: BP 166/85; PULSE 68; RESP 16; TEMP 36.2; O2SAT 94
[2024-02-15 16:00] VITALS: BP 184/71; PULSE 67; RESP 18; TEMP 36.4; O2SAT 95
[2024-02-15 20:00] VITALS: BP 166/79; PULSE 71; RESP 20; TEMP 36.5; O2SAT 95
[2024-02-15] MEDS: Enoxaparin Sodium 40 MG/0.4 ML SYRINGE SUBCUT (21:13)
[2024-02-15] MEDS: risperiDONE Oral Sol 1 MG/ML SOLUTION 0.5 MG PO (21:14)
[2024-02-15 21:37] LABS: Appearance Urine Clear; Color Urine Dark Yellow; Glucose Urine UA Negative (Negative); Leukocyte Esterase Urine Negative (Negative); Nitrite Urine Negative (Negative); Specific Gravity - Urine >= 1.030 (1.005-1.025); Urine Blood Negative (Negative); Urine Ketones 15 mg/dL (Negative); Urine Protein Trace mg/dL (Neg-Trace)
[2024-02-16] VITALS (8 sets, daily range): BP systolic 149–193; BP diastolic 71–92; PULSE 63–94; RESP 18–20; TEMP 36.1–36.8; O2SAT 95–97
[2024-02-16] MEDS: Lactated Ringers 1,000 ML 100 ML IVCONT ×2 (02:33→13:28)
--- NOTE | 2024-02-16 08:21 | P.PNIM_ITS ---
Subjective Subjective Date of Service: 02/16/24 Review of Systems Review of Systems: Yes Unobtainable due to mental status Physical Exam 2 Vital Signs: Vital Signs: Last Vital Signs Temp 96.9 F 02/16/24 03:55 Pulse 71 02/16/24 04:04 Resp 20 02/16/24 03:55 BP 168/78 H 02/16/24 04:04 Pulse Ox 95 02/16/24 03:55 O2 Del Method Room Air 02/16/24 03:55 alert, calm, confused Objective Data Active Medications Acetaminophen (Acetaminophen 325 Mg Tablet) 650 mg PO Q6H PRN PRN Reason: Pain, Mild (Pain Scale 1-3), fever or headache Al Hydroxide/Mg Hydroxide (Magnesium Hydrox/Alum Hydrox 30 Ml Oral.Susp) 30 ml PO Q6H PRN PRN Reason: Constipation Benzonatate (Benzonatate 100 Mg Capsule) 100 mg PO TID PRN PRN Reason: Cough Calcium Carbonate (Calcium Carbonate 750 Mg Tab.Chew) 750 mg PO Q4H PRN PRN Reason: Heartburn Clonidine (Clonidine 0.1 Mg Patch.Tdwk) 0.1 mg TRANSDERMA Tu@0900 [facility]; Protocol Enoxaparin Sodium (Enoxaparin Sodium 40 Mg/0.4 Ml Syringe) 40 mg SUBCUT Q24H [facility] Last Admin: 02/15/24 21:13 Dose: 40 mg Documented By: SIMONA Lactated Ringer's (Lr) 1,000 mls @ 100 mls/hr IVCONT .Q10H [facility] Last Admin: 02/16/24 02:33 Dose: 100 mls/hr Documented By: SIMONA Lorazepam (Lorazepam 2 Mg/Ml Vial) 2 mg IVPUSH ONCE PRN PRN Reason: Prior to EEG Lorazepam (Lorazepam 2 Mg/Ml Vial) 2 mg IVPUSH ONCE PRN PRN Reason: Prior to MRI Magnesium Hydroxide (Milk Of Magnesia 30 Ml Oral.Susp) 30 ml PO DAILY PRN PRN Reason: Constipation Melatonin (Melatonin 3 Mg Tablet) 6 mg PO BEDTIME PRN PRN Reason: Insomnia Miconazole Nitrate (Miconazole Nitrate 2% Powder 85 Gm Bottle) 1 appl TOPICAL BID [facility]; Protocol Last Admin: 02/15/24 21:14 Dose: 1 appl Documented By: SIMONA Nicotine Polacrilex (Nicotine Polacrilex 2 Mg Gum) 4 mg BUCCAL Q2H PRN PRN Reason: Nicotine Cravings Ondansetron HCl (Ondansetron Hcl 4 Mg/2 Ml Vial) 4 mg IVPUSH Q8H PRN PRN Reason: Nausea and Vomiting Polyethylene Glycol (Polyethylene Glycol 3350 17 Gm Powd.Pack) 17 gm PO DAILY [facility] Last Admin: 02/15/24 08:17 Dose: Not Given Documented By: SHLOMO Non-Admin Reason: Patient Refused Risperidone (Risperidone Oral Peg 1 Mg/Ml Solution) 0.5 mg PO BID [facility] Last Admin: 02/15/24 21:14 Dose: 0.5 mg Documented By: ISMONA Sodium Chloride (0.9 % Sodium Chloride Flush 3 Ml Syringe) 3 ml IVFLUSH QSHIFT [facility] Last Admin: 02/15/24 21:14 Dose: 3 ml Documented By: SIMONA Trazodone HCl (Trazodone Hcl 25 Mg Halftab) 25 mg PO BEDTIME PRN PRN Reason: Insomnia Labs 02/15/24 06:10 02/15/24 06:10 Labs: Laboratory Results - last 24 hr 02/15/24 21:27 Urine Color Dark Yellow Urine Appearance Clear Urine pH 6.0 Ur Specific [place] >= 1.030 H Urine Protein Trace Urine Glucose (UA) Negative Urine Ketones 15 Urine Blood Negative Urine Nitrite Negative Ur Leukocyte Esterase Negative Assessment and Plan (1) Acute encephalopathy: Status: Acute Plan 83M PMH htn, unspecified dementia, [facility] 02/13/24 for FTT, not taking meds or food, transfered to medicine 02/14/24. 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
[2024-02-16] MEDS: Miconazole Nitrate 2% Powder 85 GM Bottle 1 APPL TOPICAL ×2 (09:26→19:27)
[2024-02-16] MEDS: risperiDONE Oral Sol 1 MG/ML SOLUTION 0.5 MG PO ×2 (09:26→19:27)
[2024-02-16] MEDS: polyethylene glycoL 3350 17 GM POWD.PACK PO (09:26)
[2024-02-16] MEDS: 0.9 % Sodium Chloride Flush 3 ML SYRINGE IVFLUSH ×3 (09:26→22:49)
[2024-02-16] MEDS: LORazepam 2 MG/ML VIAL IVPUSH (09:33)
--- NOTE | 2024-02-16 10:48 | MHC.SLORD ---
Speech Language Pathology Order Status: Called in for another patient and attemptd to see this Saturday morning. RN reported patient medicated for a procedure, not appropriate for swallow eval this morning. CROCHETER will follow up 02/17/24.
[2024-02-16] MEDS: Enoxaparin Sodium 40 MG/0.4 ML SYRINGE SUBCUT (19:27)
[2024-02-17] VITALS (7 sets, daily range): BP systolic 154–186; BP diastolic 78–93; PULSE 60–96; RESP 16–20; TEMP 36.1–37; O2SAT 93–100; BMI 23.8
--- NOTE | 2024-02-17 | EEG_ITS ---
This is a 16-channel EEG with an EKG lead. The patient is reported drowsy and confused during the tracing. Background EEG rhythm is medium amplitude mixed theta delta with no obvious asymmetry or paroxysmal tendency. No sharp waves or spikes are noted. Photic stimulation and hyperventilation were not performed. Cardiac lead does not reveal any significant abnormality. IMPRESSION: Generalized slowing with suggestion of underlying encephalopathy of unknown etiology. No focal activity noted. MD SHANTI Christianson/RAFIA / [id number]
--- NOTE | 2024-02-17 08:31 | HO.PM.IMPN ---
Subjective Subjective Date of Service: 02/17/24 Review of Systems Review of Systems: Yes Unobtainable due to mental status Physical Exam Vital Signs: Vital Signs: Last Vital Signs Temp 96.9 F 02/17/24 07:24 Pulse 60 02/17/24 07:24 Resp 16 02/17/24 07:24 BP 175/78 H 02/17/24 07:24 Pulse Ox 100 02/17/24 07:24 O2 Del Method Room Air 02/17/24 07:24 alert, calm, confused Objective Data Active Medications Acetaminophen (Acetaminophen 325 Mg Tablet) 650 mg PO Q6H PRN PRN Reason: Pain, Mild (Pain Scale 1-3), fever or headache Al Hydroxide/Mg Hydroxide (Magnesium Hydrox/Alum Hydrox 30 Ml Oral.Susp) 30 ml PO Q6H PRN PRN Reason: Constipation Benzonatate (Benzonatate 100 Mg Capsule) 100 mg PO TID PRN PRN Reason: Cough Calcium Carbonate (Calcium Carbonate 750 Mg Tab.Chew) 750 mg PO Q4H PRN PRN Reason: Heartburn Clonidine (Clonidine 0.1 Mg Patch.Tdwk) 0.1 mg TRANSDERMA Tu@0900 [facility]; Protocol Enoxaparin Sodium (Enoxaparin Sodium 40 Mg/0.4 Ml Syringe) 40 mg SUBCUT Q24H [facility] Last Admin: 02/16/24 19:27 Dose: 40 mg Documented By: SHLOMO Lorazepam (Lorazepam 2 Mg/Ml Vial) 2 mg IVPUSH ONCE PRN PRN Reason: Prior to EEG Lorazepam (Lorazepam 2 Mg/Ml Vial) 2 mg IVPUSH ONCE PRN PRN Reason: Prior to MRI Last Admin: 02/16/24 09:33 Dose: 2 mg Documented By: SHLOMO Magnesium Hydroxide (Milk Of Magnesia 30 Ml Oral.Susp) 30 ml PO DAILY PRN PRN Reason: Constipation Melatonin (Melatonin 3 Mg Tablet) 6 mg PO BEDTIME PRN PRN Reason: Insomnia Miconazole Nitrate (Miconazole Nitrate 2% Powder 85 Gm Bottle) 1 appl TOPICAL BID [facility]; Protocol Last Admin: 02/16/24 19:27 Dose: 1 appl Documented By: SHLOMO Nicotine Polacrilex (Nicotine Polacrilex 2 Mg Gum) 4 mg BUCCAL Q2H PRN PRN Reason: Nicotine Cravings Ondansetron HCl (Ondansetron Hcl 4 Mg/2 Ml Vial) 4 mg IVPUSH Q8H PRN PRN Reason: Nausea and Vomiting Polyethylene Glycol (Polyethylene Glycol 3350 17 Gm Powd.Pack) 17 gm PO DAILY [facility] Last Admin: 02/16/24 09:26 Dose: 17 gm Documented By: SHLOMO Quetiapine Fumarate (Quetiapine Fumarate 25 Mg Tablet) 25 mg PO ONCE PRN PRN Reason: about 45 min before eeg Risperidone (Risperidone Oral Peg 1 Mg/Ml Solution) 0.5 mg PO BID [facility] Last Admin: 02/16/24 19:27 Dose: 0.5 mg Documented By: SHLOMO Sodium Chloride (0.9 % Sodium Chloride Flush 3 Ml Syringe) 3 ml IVFLUSH QSHIFT [facility] Last Admin: 02/16/24 22:49 Dose: 3 ml Documented By: SHLOMO Trazodone HCl (Trazodone Hcl 25 Mg Halftab) 25 mg PO BEDTIME PRN PRN Reason: Insomnia Labs 02/15/24 06:10 02/15/24 06:10 Assessment and Plan (1) Acute encephalopathy: Status: Acute Plan 83M PMH htn, unspecified dementia, admitted [facility] 02/13/24 for FTT, not taking meds or food, transfered to medicine 02/14/24. 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
[2024-02-17] MEDS: risperiDONE Oral Sol 1 MG/ML SOLUTION 0.5 MG PO ×2 (08:45→19:56)
[2024-02-17] MEDS: polyethylene glycoL 3350 17 GM POWD.PACK PO (08:45)
[2024-02-17] MEDS: 0.9 % Sodium Chloride Flush 3 ML SYRINGE IVFLUSH ×3 (08:46→23:53)
[2024-02-17] MEDS: Miconazole Nitrate 2% Powder 85 GM Bottle 1 APPL TOPICAL ×2 (08:48→19:56)
--- NOTE | 2024-02-17 08:57 | MHC.CM.PN ---
CM spoke with the Bookmobile Clerk/Lawanda [facility] @ [phone], who indicated that Patient cannot return to ILF(per Lawanda,he was never appropriate for ILF and his needs are beyond what they can provide to keep the other Residents safe). Lawanda explained that Patient's has profound Dementia and she is in a SNF on Hospice. CM left a detailed message for Patient's Sister/Nate @ [phone] & Step Daughter/Alcides @ [phone], requesting a copy of the HCP, if there is one. Per Lawanda, Alcides's Mother is in a SNF as well and much of Alcides's attention is needed in her direction (including trying to sell the home that Patient and Alcides's mother shared together). 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 There is no one to address the IMM with. There apparently was some work done by Alcides toward getting Patient into the [facility]. CM will follow.
[2024-02-17] MEDS: QUEtiapine Fumarate 25 MG TABLET PO (09:40)
--- NOTE | 2024-02-17 11:34 | MHC.CLN ---
PT IS MODERATELY MALNOURISHED PT WITH MILDLY DEPLETED SUBCUTANEOUS FAT AND MUSCLE MASS WITH CHRONIC POOR PO INTAKE AND REFUSAL TO TAKE MEDS/FOODS DIET RX: CHOPPED-APPROPRIATE PT IS A 1:1 FEED. RECOMMEND ADDING MAGIC CUP TID TO INCREASE KCALS SUPPLEMENT TO PROVIDE 870KCALS, 27G PROTEIN MONITOR PO INTAKE AND ENCOURAGE SUPPLEMENTS SEE ALSO FULL CLINICAL NUTRITION ASSESSMENT
--- NOTE | 2024-02-17 12:18 | MHC.SLORD ---
Speech Language Pathology Order Status: Pt unavailable for bedside swallow tx d/t AMS. RN to contact ST as indicated, ST to followup tomorrow.
--- NOTE | 2024-02-17 15:54 | MHC.CM.PN ---
CM received a return call from Step Daughter/Alcides, Patient had a PCP years ago in [place] but has never established himself with a PCP in [place]. Alcides does not have a copy of the HCP.
--- NOTE | 2024-02-17 16:04 | MHC.CM.PN ---
[facility] returned CM call; they do not have a copy of the HCP. CM has reached out to [facility] to see if a copy was sent with Patient when he first arrived at the Psych Unit here. CM will follow.
[2024-02-18 00:19] VITALS: BP 157/92; PULSE 86
[2024-02-18 02:57] VITALS: BP 179/82; PULSE 85; RESP 20; TEMP 36.4; O2SAT 95
[2024-02-18 07:21] VITALS: BP 178/86; PULSE 94; RESP 17; TEMP 36.7; O2SAT 96
[2024-02-18] MEDS: risperiDONE Oral Sol 1 MG/ML SOLUTION 0.5 MG PO (09:58)
[2024-02-18] MEDS: Miconazole Nitrate 2% Powder 85 GM Bottle 1 APPL TOPICAL ×2 (09:59→22:59)
[2024-02-18] MEDS: polyethylene glycoL 3350 17 GM POWD.PACK PO (09:59)
[2024-02-18] MEDS: 0.9 % Sodium Chloride Flush 3 ML SYRINGE IVFLUSH ×3 (10:14→22:56)
[2024-02-18] MEDS: cloNIDine 0.1 MG PATCH.TDWK TRANSDERMA (11:14)
[2024-02-18 11:29] VITALS: BP 174/82; PULSE 90; RESP 16; TEMP 36.2; O2SAT 98
--- NOTE | 2024-02-18 11:36 | MHC.CM.PN ---
CM received a call from the Bulk Mail Technician of [facility]/Cortes, who was asking if Patient is expected to return to the community, because family is questioning what to do with Patient's apartment and belongings. KORI informed Cortes that his Co worker/Lawanda has already informed this CM that Patient cannot return to the [facility] . CM will follow.
--- NOTE | 2024-02-18 11:53 | MHC.SL.SWA ---
Speech Pathologist Impression: Risk of Aspiration Due to: Lethargy Medically Fragile Neurological Condition Poor PO Intake Reduced Cognition Dysphasia Diet Status: Liquid Consistency and Strategies for Safe Swallow: Liquid Intake Recommendation: Thin Liquid Intake Strategies: Small Sips Solid Food Consistency: Dietary Recommendations: Chopped/Advanced (NDD3) Additional Modifications to Solid Foods: Pt is already on a diet of Chopped/Advanced Solids. No changes recommended at this time. Oral medications crushed in Puree as Pt has history of spitting out pills. Pt will require 1:1 Supervision, but should be encouraged to self-administer food and liquids as much as possible. DRAPERY OPERATOR will continue to follow. Oral Medication Intake: Crushed with Puree Please contact the pharmacy regarding appropriate crushable or liquid drug formulations that are available whenever modified delivery is recommended. Compensatory Strategies and Precautions to be Taken for Safe Swallow: Supervision While Eating and Drinking for Safe Swallow: Total Supervision (1:1) Swallowing Recommended Treatments: Compens. Strategy Educat. Recommendation for Speech: Inpatient Speech Therapy Comment: Frequency/Duration: Daily Timeline to reassess: PRN Stain Applicator Clinican/Clinical Fellow: No Supervisory Statement: I have reviewed and agree with the student/clinical fellow's documentation: N/A Speech Language Pathologist: Vikash Ramachandran M.A., CCC-DRAPERY OPERATOR
--- NOTE | 2024-02-18 12:31 | P.PNIM_ITS ---
Subjective Subjective Date of Service: 02/18/24 Interval History: seen and evaluated this morning laying comfortable in his bed sweetly confused and report being normal to himself BP elevated no other events Review of Systems Review of Systems: Yes all other systems are reviewed and are negative Physical Exam 2 Vital Signs: Vital Signs: Last Vital Signs Temp 97.2 F 02/18/24 11:29 Pulse 90 02/18/24 11:29 Resp 16 02/18/24 11:29 BP 174/82 H 02/18/24 11:29 Pulse Ox 98 02/18/24 11:29 O2 Del Method Room Air 02/18/24 11:29 BMI result Body Mass Index 23.8 Const: Other: Constitutional : Awake, interactive, not in distress Neck : Normal inspection, Supple Cardiovascular : RRR, no JVP, no lower extremity edema Respiratory : good bilateral air entry, no crackles, wheezes or rhonchi Gastrointestinal: soft, lax, Normal bowel sounds, Non tender Skin : Warm, Dry Neurological : Alert & disoriented to place and time, No focal deficit Objective Data Active Medications Acetaminophen (Acetaminophen 325 Mg Tablet) 650 mg PO Q6H PRN PRN Reason: Pain, Mild (Pain Scale 1-3), fever or headache Al Hydroxide/Mg Hydroxide (Magnesium Hydrox/Alum Hydrox 30 Ml Oral.Susp) 30 ml PO Q6H PRN PRN Reason: Constipation Benzonatate (Benzonatate 100 Mg Capsule) 100 mg PO TID PRN PRN Reason: Cough Calcium Carbonate (Calcium Carbonate 750 Mg Tab.Chew) 750 mg PO Q4H PRN PRN Reason: Heartburn Clonidine (Clonidine 0.1 Mg Patch.Tdwk) 0.1 mg TRANSDERMA Tu@0900 [facility]; Protocol Last Admin: 02/18/24 11:14 Dose: 0.1 mg Documented By: YENI Enoxaparin Sodium (Enoxaparin Sodium 40 Mg/0.4 Ml Syringe) 40 mg SUBCUT Q24H [facility] Last Admin: 02/16/24 19:27 Dose: 40 mg Documented By: SHLOMO Lorazepam (Lorazepam 2 Mg/Ml Vial) 2 mg IVPUSH ONCE PRN PRN Reason: Prior to EEG Lorazepam (Lorazepam 2 Mg/Ml Vial) 2 mg IVPUSH ONCE PRN PRN Reason: Prior to MRI Last Admin: 02/16/24 09:33 Dose: 2 mg Documented By: SHLOMO Magnesium Hydroxide (Milk Of Magnesia 30 Ml Oral.Susp) 30 ml PO DAILY PRN PRN Reason: Constipation Melatonin (Melatonin 3 Mg Tablet) 6 mg PO BEDTIME PRN PRN Reason: Insomnia Miconazole Nitrate (Miconazole Nitrate 2% Powder 85 Gm Bottle) 1 appl TOPICAL BID [facility]; Protocol Last Admin: 02/18/24 09:59 Dose: 1 appl Documented By: YENI Nicotine Polacrilex (Nicotine Polacrilex 2 Mg Gum) 4 mg BUCCAL Q2H PRN PRN Reason: Nicotine Cravings Ondansetron HCl (Ondansetron Hcl 4 Mg/2 Ml Vial) 4 mg IVPUSH Q8H PRN PRN Reason: Nausea and Vomiting Polyethylene Glycol (Polyethylene Glycol 3350 17 Gm Powd.Pack) 17 gm PO DAILY [facility] Last Admin: 02/18/24 09:59 Dose: 17 gm Documented By: YENI Quetiapine Fumarate (Quetiapine Fumarate 25 Mg Tablet) 25 mg PO ONCE PRN PRN Reason: about 45 min before eeg Last Admin: 02/17/24 09:40 Dose: 25 mg Documented By: SHLOMO Risperidone (Risperidone Oral Peg 1 Mg/Ml Solution) 0.5 mg PO BID [facility] Last Admin: 02/18/24 09:58 Dose: 0.5 mg Documented By: YENI Sodium Chloride (0.9 % Sodium Chloride Flush 3 Ml Syringe) 3 ml IVFLUSH QSHIFT [facility] Last Admin: 02/18/24 10:14 Dose: 3 ml Documented By: YENI Trazodone HCl (Trazodone Hcl 25 Mg Halftab) 25 mg PO BEDTIME PRN PRN Reason: Insomnia Labs 02/15/24 06:10 02/15/24 06:10 Assessment and Plan (1) Acute encephalopathy: Status: Acute (2) Uncontrolled hypertension: Status: Acute Plan 83M PMH htn, unspecified dementia, admitted to [facility] 02/13/24 for FTT, not taking meds or food, transfered to medicine 02/14/24. 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 Neurology appreciated, follow up syphilis, Lyme EEG showing general slowing but seizure disorder MRI not consistent with CJD, less likely Pending LP and CSF studies Hypertension, uncotrolled Transdermal clonidine Start Amlodipine Subacute left distal radius fracture Soft cast Mood disorder Risperidone, trazodone DVT prophylaxis with Lovenox Full Code reason for continued hospitalization: Workup ongoing for altered mental status Quality Stroke Does the patient have a stroke diagnosis?: No VTE Prior VTE?: No VTE Risk Level:: Medical - moderate - high VTE Device Contraindication: Treatment Not Indicated VTE Drug Contraindication: N/A - Med Ordered
[2024-02-18] MEDS: amLODIPine Besylate 5 MG TABLET PO (13:02)
[2024-02-18] MEDS: LORazepam 2 MG/ML VIAL IVPUSH (13:03)
[2024-02-18 15:05] VITALS: BP 140/89; PULSE 85; RESP 18; TEMP 36.3; O2SAT 94
[2024-02-18 19:25] VITALS: BP 168/78; PULSE 103; RESP 18; TEMP 36.2; O2SAT 96
[2024-02-19] VITALS (7 sets, daily range): BP systolic 141–182; BP diastolic 76–90; PULSE 90–99; RESP 16–20; TEMP 36.1–36.6; O2SAT 92–95
[2024-02-19 07:17] LABS: Glucose, Whole Blood 80 mg/dL (60-115)
--- NOTE | 2024-02-19 08:41 | MHC.CLN ---
F/U PT IS MODERATELY MALNOURISHED SEE FULL CLINICAL NUTRITION ASSESSMENT DATED 02/17/24 PO INTAKE 0-25% DIET RX: CHOPPED-APPROPRIATE PT IS A 1:1 FEED. PT RECEIVING MAGIC CUP TID TO INCREASE KCALS SUPPLEMENT PROVIDES 870KCALS, 27G PROTEIN MONITOR PO INTAKE AND ENCOURAGE SUPPLEMENTS
[2024-02-19] MEDS: amLODIPine Besylate 5 MG TABLET PO (09:48)
[2024-02-19] MEDS: risperiDONE Oral Sol 1 MG/ML SOLUTION 0.5 MG PO (09:50)
[2024-02-19] MEDS: polyethylene glycoL 3350 17 GM POWD.PACK PO (09:52)
[2024-02-19] MEDS: 0.9 % Sodium Chloride Flush 3 ML SYRINGE IVFLUSH ×3 (09:55→21:54)
[2024-02-19] MEDS: Miconazole Nitrate 2% Powder 85 GM Bottle 1 APPL TOPICAL ×2 (09:56→21:53)
--- NOTE | 2024-02-19 10:25 | MHC.SL.SWA ---
Speech Pathologist Impression: Moderate oropharyngeal dysphagia d/t fluctuations in mental status Risk of Aspiration Due to: Lethargy Medically Fragile Neurological Condition Poor PO Intake Reduced Cognition Dysphasia Diet Status: Liquid Consistency and Strategies for Safe Swallow: Liquid Intake Recommendation: Thin Liquid Intake Strategies: Small Sips Straws ok Solid Food Consistency: Dietary Recommendations: Grnd/Mech Altered (NDD2) Additional Modifications to Solid Foods: Diet downgrade recc at this time d/t waxing/waning mentation. Oral medications crushed in Puree. Pt requires 1:1 Supervision, verbal cueing to orient pt to task of eating, encourage pt to feed himself when alert enough to follow simple cues/recognize utensils. LINEN ATTENDANT will continue to follow. Oral Medication Intake: Crushed with Puree Please contact the pharmacy regarding appropriate crushable or liquid drug formulations that are available whenever modified delivery is recommended. Compensatory Strategies and Precautions to be Taken for Safe Swallow: Sitting Upright (90 deg) Liquids from Straw Small Bites and Sips Alternate Liquids/Solids Rate of Ingestion Change Oral Check Supervision While Eating and Drinking for Safe Swallow: Total Supervision (1:1) Foods to Avoid: Swallowing Recommended Treatments: Compens. Strategy Educat. Recommendation for Speech: Inpatient Speech Therapy Comment: Verbal cueing to orient pt to task of eating, full feed d/t waxing and waning of mentation. Aspiration precautions, re-evaluate PO tolerance as indicated. Frequency/Duration: Daily Date Range for Service Req: Timeline to reassess: PRN Regional Liaison Clinican/Clinical Fellow: No Supervisory Statement: I have reviewed and agree with the student/clinical fellow's documentation: N/A Speech Language Pathologist: Penny Del Cid M.S., CCC-LINEN ATTENDANT
--- NOTE | 2024-02-19 12:58 | MHC.CM.PN ---
Per MD rounds Test results are pending. Results are anticipated 1week. Patient can not return to [facility] at discharge. Likely Guardianship will need to be obtained. Patient does not have a HCP. He is not able to Name a HCP do to mentation. CM will continue to follow.
--- NOTE | 2024-02-19 13:46 | P.PNIM_ITS ---
Subjective Subjective Date of Service: 02/19/24 Interval History: seen and evaluated this morning laying comfortable in his bed more sleepy today no other events Review of Systems Review of Systems: Yes all other systems are reviewed and are negative Physical Exam 2 Vital Signs: Vital Signs: Last Vital Signs Temp 97.2 F 02/19/24 11:17 Pulse 95 02/19/24 11:17 Resp 16 02/19/24 11:17 BP 141/76 H 02/19/24 11:17 Pulse Ox 92 02/19/24 11:17 O2 Del Method Room Air 02/19/24 11:17 BMI result Body Mass Index 23.8 Const: Other: Constitutional : Awake, interactive, not in distress Neck : Normal inspection, Supple Cardiovascular : RRR, no JVP, no lower extremity edema Respiratory : good bilateral air entry, no crackles, wheezes or rhonchi Gastrointestinal: soft, lax, Normal bowel sounds, Non tender Skin : Warm, Dry Neurological : Alert & disoriented to place and time, No focal deficit Objective Data Active Medications Acetaminophen (Acetaminophen 325 Mg Tablet) 650 mg PO Q6H PRN PRN Reason: Pain, Mild (Pain Scale 1-3), fever or headache Al Hydroxide/Mg Hydroxide (Magnesium Hydrox/Alum Hydrox 30 Ml Oral.Susp) 30 ml PO Q6H PRN PRN Reason: Constipation Amlodipine Besylate (Amlodipine Besylate 5 Mg Tablet) 5 mg PO DAILY [facility]; Protocol Last Admin: 02/19/24 09:48 Dose: 5 mg Documented By: PHANLJEAL Benzonatate (Benzonatate 100 Mg Capsule) 100 mg PO TID PRN PRN Reason: Cough Calcium Carbonate (Calcium Carbonate 750 Mg Tab.Chew) 750 mg PO Q4H PRN PRN Reason: Heartburn Clonidine (Clonidine 0.1 Mg Patch.Tdwk) 0.1 mg TRANSDERMA Tu@0900 [facility]; Protocol Last Admin: 02/18/24 11:14 Dose: 0.1 mg Documented By: YENI Enoxaparin Sodium (Enoxaparin Sodium 40 Mg/0.4 Ml Syringe) 40 mg SUBCUT Q24H [facility] Last Admin: 02/16/24 19:27 Dose: 40 mg Documented By: SHLOMO Lorazepam (Lorazepam 2 Mg/Ml Vial) 2 mg IVPUSH ONCE PRN PRN Reason: Prior to EEG Last Admin: 02/18/24 13:03 Dose: 2 mg Documented By: YENI Comments: given per MD prior to LP Lorazepam (Lorazepam 2 Mg/Ml Vial) 2 mg IVPUSH ONCE PRN PRN Reason: Prior to MRI Last Admin: 02/16/24 09:33 Dose: 2 mg Documented By: SHLOMO Magnesium Hydroxide (Milk Of Magnesia 30 Ml Oral.Susp) 30 ml PO DAILY PRN PRN Reason: Constipation Melatonin (Melatonin 3 Mg Tablet) 6 mg PO BEDTIME PRN PRN Reason: Insomnia Miconazole Nitrate (Miconazole Nitrate 2% Powder 85 Gm Bottle) 1 appl TOPICAL BID [facility]; Protocol Last Admin: 02/19/24 09:56 Dose: 1 appl Documented By: TAMARA Nicotine Polacrilex (Nicotine Polacrilex 2 Mg Gum) 4 mg BUCCAL Q2H PRN PRN Reason: Nicotine Cravings Ondansetron HCl (Ondansetron Hcl 4 Mg/2 Ml Vial) 4 mg IVPUSH Q8H PRN PRN Reason: Nausea and Vomiting Polyethylene Glycol (Polyethylene Glycol 3350 17 Gm Powd.Pack) 17 gm PO DAILY [facility] Last Admin: 02/19/24 09:52 Dose: 17 gm Documented By: TAMARA Quetiapine Fumarate (Quetiapine Fumarate 25 Mg Tablet) 25 mg PO ONCE PRN PRN Reason: about 45 min before eeg Last Admin: 02/17/24 09:40 Dose: 25 mg Documented By: SHLOMO Risperidone (Risperidone Oral Peg 1 Mg/Ml Solution) 0.5 mg PO BID [facility] Last Admin: 02/19/24 09:50 Dose: 0.5 mg Documented By: TAMARA Sodium Chloride (0.9 % Sodium Chloride Flush 3 Ml Syringe) 3 ml IVFLUSH QSHIFT [facility] Last Admin: 02/19/24 09:55 Dose: 3 ml Documented By: TAMARA Trazodone HCl (Trazodone Hcl 25 Mg Halftab) 25 mg PO BEDTIME PRN PRN Reason: Insomnia Labs 02/15/24 06:10 02/15/24 06:10 Labs: Laboratory Results - last 24 hr 02/19/24 07:05 POC Glucose 80 Microbiology Microbiology Results: Microbiology 02/18/24 13:45 Gram Stain - Final Cerebrospinal Fluid CSF Examination - Final Fluid Description - Final CSF Culture - Preliminary No growth after 1 day Assessment and Plan (1) Uncontrolled hypertension: Status: Acute (2) Encephalopathy: Status: Acute Plan 83M PMH htn, unspecified dementia, admitted to [facility] 02/13/24 for FTT, not taking meds or food, transfered to medicine 02/14/24. 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 Neurology appreciated, follow up syphilis, Lyme EEG showing general slowing but seizure disorder MRI not consistent with CJD, less likely CJD testing pending All other CSF studies on hold until we get the CJD result CSF culture -ve PLANT CYTOLOGIST following, adjust diet Hypertension, uncotrolled Transdermal clonidine Start Amlodipine Subacute left distal radius fracture Soft cast Mood disorder Risperidone, trazodone DVT prophylaxis with Lovenox Full Code reason for continued hospitalization: Workup ongoing for altered mental status Quality Stroke Does the patient have a stroke diagnosis?: No VTE Prior VTE?: No VTE Risk Level:: Medical - moderate - high VTE Device Contraindication: Treatment Not Indicated VTE Drug Contraindication: N/A - Med Ordered
[2024-02-20] VITALS (7 sets, daily range): BP systolic 128–178; BP diastolic 76–88; PULSE 80–98; RESP 18–20; TEMP 36.3–36.9; O2SAT 94–96
--- NOTE | 2024-02-20 07:41 | MHC.CM.PN ---
A HCP has been located. The Primary Agent is Barbara Alonso (unsure of relationship to Patient) and Step Daughter/Alcides is the Alternate Agent. CM will follow.
[2024-02-20] MEDS: risperiDONE Oral Sol 1 MG/ML SOLUTION 0.5 MG PO ×2 (09:17→19:34)
[2024-02-20] MEDS: polyethylene glycoL 3350 17 GM POWD.PACK PO (09:18)
[2024-02-20] MEDS: amLODIPine Besylate 5 MG TABLET PO (09:20)
[2024-02-20] MEDS: 0.9 % Sodium Chloride Flush 3 ML SYRINGE IVFLUSH ×3 (09:21→19:34)
[2024-02-20] MEDS: Miconazole Nitrate 2% Powder 85 GM Bottle 1 APPL TOPICAL ×2 (09:22→19:36)
--- NOTE | 2024-02-20 09:49 | MHC.CM.PN ---
CM left a detailed message for Step Daughter/Alternate HCP/Alcides, at listed #, requesting a return call. KORI is asking how Primary/HCP/Agent/Barbara is related to Patient and whether or not Alcides is willing to continue as the Alternate HCP. CM awaits a return call from Alcides.
--- NOTE | 2024-02-20 11:04 | MHC.CM.PN ---
CM spoke with Sister/.Nate Genao @ [phone]. Per Sister, Barbara, who is listed as the Primary HCP Agent, is Patient's , who is presently in a SNF under Hospice care. (CM still awaits a return call from Step Daughter/Alternate HCP Agent/Alcides, regarding her willingness to serve now as the Primary HCP Agent). Sister was referred to MD regarding medical questions. CM will follow.
--- NOTE | 2024-02-20 13:35 | MHC.SL.SWA ---
Speech Pathologist Impression: Risk of Aspiration Due to: Lethargy Medically Fragile Neurological Condition Poor PO Intake Reduced Cognition Dysphasia Diet Status: Recommend continue on Ground/Mechanical (NDD2) with thin liquids, pills crushed in puree. Liquid Consistency and Strategies for Safe Swallow: Liquid Intake Recommendation: Thin Liquid Intake Strategies: Small Sips Solid Food Consistency: Dietary Recommendations: Grnd/Mech Altered (NDD2) Additional Modifications to Solid Foods: Patient would benefit from full supervision at meals to assure his safety, progress and access to food, at a minimum needs intermittent supervision with full assistance with set up of tray, opening of items, adding gravies, salt etc., then removing any items that may cause confusion. Oral Medication Intake: Crushed with Puree Please contact the pharmacy regarding appropriate crushable or liquid drug formulations that are available whenever modified delivery is recommended. Compensatory Strategies and Precautions to be Taken for Safe Swallow: Sitting Upright (90 deg) Liquids from Straw Small Bites and Sips Alternate Liquids/Solids Supervision While Eating and Drinking for Safe Swallow: Total Supervision (1:1) Foods to Avoid: Swallowing Recommended Treatments: Compens. Strategy Educat. Recommendation for Speech: Inpatient Speech Therapy Comment: Patient seen at lunch today, was alone in room with tray at bedside with patient fiddling with butter pads as CUSTOMER ASSISTANCE REPRESENTATIVE entered room. Patient asked what is this? holding up butter pad, was assisted with opening it an putting it on ground/mashed vegetables on tray. CUSTOMER ASSISTANCE REPRESENTATIVE repositioned table with tray of food so that it was in front of patient and easier to access, draped patient with towel, opened juices/magic cup, salted food on request (patient at a minimum needs supervision for these needs, to assure that he is able to access food, not spill on self, not perseverate on opening or figuring out what items are on tray). Patient yesterday was downgraded by CUSTOMER ASSISTANCE REPRESENTATIVE to ground diet. Patient was able to feed self these foods, producing timely mastication and swallow, with no evidence of pocketing or difficulty with the texture. Patient consumed 1/2 of the food items on plate, eating a some of each item (carrots, potato, ground turkey). Patient then indicated he was done, looked for the cloche to cover plate, was assisted with removing tray/table, though CUSTOMER ASSISTANCE REPRESENTATIVE left magic cup and can of gingerale within easy reach of patient if he wanted to continue to eat/drink. Patient is tolerating this diet consistency well, allows for increased independence. Recommend continue on Ground/Mechanical (NDD2) with thin liquids, pills crushed in puree. Patient would benefit from full supervision at meals to assure his safety, progress and access to food, at a minimum needs intermittent supervision with full assistance with set up of tray, opening of items, adding gravies, salt etc., then removing any items that may cause confusion. CUSTOMER ASSISTANCE REPRESENTATIVE will continue to follow. Frequency/Duration: Daily Date Range for Service Req: Timeline to reassess: PRN Medical Massage Therapist Clinican/Clinical Fellow: No Supervisory Statement: I have reviewed and agree with the student/clinical fellow's documentation: N/A Speech Language Pathologist: Lili Jacobs M.A., CCC-CUSTOMER ASSISTANCE REPRESENTATIVE
--- NOTE | 2024-02-20 13:46 | HO.PM.IMPN ---
Subjective Subjective Date of Service: 02/20/24 Interval History: seen and evaluated this morning laying comfortable in his bed more sleepy today no other events Review of Systems Review of Systems: Yes all other systems are reviewed and are negative Physical Exam Vital Signs: Vital Signs: Last Vital Signs Temp 98.4 F 02/20/24 11:57 Pulse 89 02/20/24 11:57 Resp 20 02/20/24 11:57 BP 144/76 H 02/20/24 11:57 Pulse Ox 95 02/20/24 11:57 O2 Del Method Room Air 02/20/24 11:57 BMI result Body Mass Index 23.8 Const: Other: Constitutional : Awake, interactive, not in distress Neck : Normal inspection, Supple Cardiovascular : RRR, no JVP, no lower extremity edema Respiratory : good bilateral air entry, no crackles, wheezes or rhonchi Gastrointestinal: soft, lax, Normal bowel sounds, Non tender Skin : Warm, Dry Neurological : Alert & disoriented to place and time, No focal deficit Objective Data Active Medications Acetaminophen (Acetaminophen 325 Mg Tablet) 650 mg PO Q6H PRN PRN Reason: Pain, Mild (Pain Scale 1-3), fever or headache Al Hydroxide/Mg Hydroxide (Magnesium Hydrox/Alum Hydrox 30 Ml Oral.Susp) 30 ml PO Q6H PRN PRN Reason: Constipation Amlodipine Besylate (Amlodipine Besylate 5 Mg Tablet) 5 mg PO DAILY [facility]; Protocol Last Admin: 02/20/24 09:20 Dose: 5 mg Documented By: PEDRO PABLO Benzonatate (Benzonatate 100 Mg Capsule) 100 mg PO TID PRN PRN Reason: Cough Calcium Carbonate (Calcium Carbonate 750 Mg Tab.Chew) 750 mg PO Q4H PRN PRN Reason: Heartburn Clonidine (Clonidine 0.1 Mg Patch.Tdwk) 0.1 mg TRANSDERMA Tu@0900 [facility]; Protocol Last Admin: 02/18/24 11:14 Dose: 0.1 mg Documented By: YENI Enoxaparin Sodium (Enoxaparin Sodium 40 Mg/0.4 Ml Syringe) 40 mg SUBCUT Q24H [facility] Last Admin: 02/16/24 19:27 Dose: 40 mg Documented By: SHLOMO Magnesium Hydroxide (Milk Of Magnesia 30 Ml Oral.Susp) 30 ml PO DAILY PRN PRN Reason: Constipation Melatonin (Melatonin 3 Mg Tablet) 6 mg PO BEDTIME PRN PRN Reason: Insomnia Miconazole Nitrate (Miconazole Nitrate 2% Powder 85 Gm Bottle) 1 appl TOPICAL BID [facility]; Protocol Last Admin: 02/20/24 09:22 Dose: 1 appl Documented By: PEDRO PABLO Nicotine Polacrilex (Nicotine Polacrilex 2 Mg Gum) 4 mg BUCCAL Q2H PRN PRN Reason: Nicotine Cravings Ondansetron HCl (Ondansetron Hcl 4 Mg/2 Ml Vial) 4 mg IVPUSH Q8H PRN PRN Reason: Nausea and Vomiting Polyethylene Glycol (Polyethylene Glycol 3350 17 Gm Powd.Pack) 17 gm PO DAILY [facility] Last Admin: 02/20/24 09:18 Dose: 17 gm Documented By: PEDRO PABLO Quetiapine Fumarate (Quetiapine Fumarate 25 Mg Tablet) 25 mg PO ONCE PRN PRN Reason: about 45 min before eeg Last Admin: 02/17/24 09:40 Dose: 25 mg Documented By: SHLOMO Risperidone (Risperidone Oral Peg 1 Mg/Ml Solution) 0.5 mg PO BID [facility] Last Admin: 02/20/24 09:17 Dose: 0.5 mg Documented By: PEDRO PABLO Sodium Chloride (0.9 % Sodium Chloride Flush 3 Ml Syringe) 3 ml IVFLUSH QSHIFT [facility] Last Admin: 02/20/24 09:21 Dose: 3 ml Documented By: PEDRO PABLO Trazodone HCl (Trazodone Hcl 25 Mg Halftab) 25 mg PO BEDTIME PRN PRN Reason: Insomnia Labs 02/15/24 06:10 02/15/24 06:10 Microbiology Microbiology Results: Microbiology 02/18/24 13:45 Gram Stain - Final Cerebrospinal Fluid CSF Examination - Final Fluid Description - Final CSF Culture - Preliminary No growth after 2 days Assessment and Plan (1) Cognitive and behavioral changes: Status: Acute Plan 83M PMH htn, unspecified dementia, admitted to [facility] 02/13/24 for FTT, not taking meds or food, transfered to medicine 02/14/24. 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 Nate Genao and her phone number is [phone] to be contacted for any updates. Quality Stroke Does the patient have a stroke diagnosis?: No VTE Prior VTE?: No VTE Risk Level:: Medical - moderate - high VTE Device Contraindication: Treatment Not Indicated VTE Drug Contraindication: N/A - Med Ordered
--- NOTE | 2024-02-20 15:28 | MHC.CM.PN ---
CM received a return call from Patient's Step Daughter/Alcides, who IS willing to be Patient's primary health care proxy Agent([place], who is listed as the primary health care proxy Agent has ). has been made aware.
[2024-02-20] MEDS: Melatonin 3 MG TABLET 6 MG PO (19:34)
[2024-02-20] MEDS: traZODone HCL 25 MG HALFTAB PO (19:34)
[2024-02-21] VITALS (7 sets, daily range): BP systolic 133–166; BP diastolic 75–83; PULSE 74–86; RESP 16–20; TEMP 36.2–36.9; O2SAT 93–98
[2024-02-21] MEDS: amLODIPine Besylate 5 MG TABLET PO (09:50)
[2024-02-21] MEDS: risperiDONE Oral Sol 1 MG/ML SOLUTION 0.5 MG PO ×2 (09:50→20:51)
--- NOTE | 2024-02-21 09:51 | MHC.CLN ---
F/U PT IS MODERATELY MALNOURISHED PO INTAKE POOR CONSUMING 10 TO 15% OF MEALS DIET RX: GRD/MECH SOFT-APPROPRIATE E COMMERCE WEB DEVELOPER FOLLOWING FOR APPROPRIATE DIET CONSISTENCY PT IS A 1:1 FEED. PT RECEIVING MAGIC CUP TID TO INCREASE KCALS SUPPLEMENT PROVIDES 870KCALS, 27G PROTEIN CONTINUE TO MONITOR PO INTAKE AND ENCOURAGE SUPPLEMENTS ADD WEEKLY WEIGHTS R/T MALNUTRITION
[2024-02-21] MEDS: 0.9 % Sodium Chloride Flush 3 ML SYRINGE IVFLUSH ×2 (09:54→16:54)
[2024-02-21] MEDS: Miconazole Nitrate 2% Powder 85 GM Bottle 1 APPL TOPICAL ×2 (09:54→20:52)
--- NOTE | 2024-02-21 12:40 | P.PNIM_ITS ---
Subjective Subjective Date of Service: 02/21/24 Interval History: seen and evaluated this morning laying comfortable in his bed more sleepy today no other events Physical Exam 2 Vital Signs: Vital Signs: Last Vital Signs Temp 98.5 F 02/21/24 11:47 Pulse 86 02/21/24 11:47 Resp 16 02/21/24 11:47 BP 149/75 H 02/21/24 11:47 Pulse Ox 96 02/21/24 11:47 O2 Del Method Room Air 02/21/24 11:47 BMI result Body Mass Index 23.8 Const: Other: Constitutional : Awake, interactive, not in distress Neck : Normal inspection, Supple Cardiovascular : RRR, no JVP, no lower extremity edema Respiratory : good bilateral air entry, no crackles, wheezes or rhonchi Gastrointestinal: soft, lax, Normal bowel sounds, Non tender Skin : Warm, Dry Neurological : Alert & disoriented to place and time, No focal deficit Objective Data Active Medications Acetaminophen (Acetaminophen 325 Mg Tablet) 650 mg PO Q6H PRN PRN Reason: Pain, Mild (Pain Scale 1-3), fever or headache Al Hydroxide/Mg Hydroxide (Magnesium Hydrox/Alum Hydrox 30 Ml Oral.Susp) 30 ml PO Q6H PRN PRN Reason: Constipation Amlodipine Besylate (Amlodipine Besylate 5 Mg Tablet) 5 mg PO DAILY [facility]; Protocol Last Admin: 02/21/24 09:50 Dose: 5 mg Documented By: BERTO Benzonatate (Benzonatate 100 Mg Capsule) 100 mg PO TID PRN PRN Reason: Cough Calcium Carbonate (Calcium Carbonate 750 Mg Tab.Chew) 750 mg PO Q4H PRN PRN Reason: Heartburn Clonidine (Clonidine 0.1 Mg Patch.Tdwk) 0.1 mg TRANSDERMA Tu@0900 [facility]; Protocol Last Admin: 02/18/24 11:14 Dose: 0.1 mg Documented By: YENI Enoxaparin Sodium (Enoxaparin Sodium 40 Mg/0.4 Ml Syringe) 40 mg SUBCUT Q24H [facility] Last Admin: 02/16/24 19:27 Dose: 40 mg Documented By: SHLOMO Magnesium Hydroxide (Milk Of Magnesia 30 Ml Oral.Susp) 30 ml PO DAILY PRN PRN Reason: Constipation Melatonin (Melatonin 3 Mg Tablet) 6 mg PO BEDTIME PRN PRN Reason: Insomnia Last Admin: 02/20/24 19:34 Dose: 6 mg Documented By: DARIN Miconazole Nitrate (Miconazole Nitrate 2% Powder 85 Gm Bottle) 1 appl TOPICAL BID [facility]; Protocol Last Admin: 02/21/24 09:54 Dose: 1 appl Documented By: BERTO Nicotine Polacrilex (Nicotine Polacrilex 2 Mg Gum) 4 mg BUCCAL Q2H PRN PRN Reason: Nicotine Cravings Ondansetron HCl (Ondansetron Hcl 4 Mg/2 Ml Vial) 4 mg IVPUSH Q8H PRN PRN Reason: Nausea and Vomiting Polyethylene Glycol (Polyethylene Glycol 3350 17 Gm Powd.Pack) 17 gm PO DAILY [facility] Last Admin: 02/21/24 09:53 Dose: Not Given Documented By: BERTO Non-Admin Reason: PT MOVING BOWELS Quetiapine Fumarate (Quetiapine Fumarate 25 Mg Tablet) 25 mg PO ONCE PRN PRN Reason: about 45 min before eeg Last Admin: 02/17/24 09:40 Dose: 25 mg Documented By: SHLOMO Risperidone (Risperidone Oral Peg 1 Mg/Ml Solution) 0.5 mg PO BID [facility] Last Admin: 02/21/24 09:50 Dose: 0.5 mg Documented By: BERTO Sodium Chloride (0.9 % Sodium Chloride Flush 3 Ml Syringe) 3 ml IVFLUSH QSHIFT [facility] Last Admin: 02/21/24 09:54 Dose: 3 ml Documented By: BERTO Trazodone HCl (Trazodone Hcl 25 Mg Halftab) 25 mg PO BEDTIME PRN PRN Reason: Insomnia Last Admin: 02/20/24 19:34 Dose: 25 mg Documented By: DARIN Labs 02/15/24 06:10 02/15/24 06:10 Microbiology Microbiology Results: Microbiology 02/18/24 13:45 Gram Stain - Final Cerebrospinal Fluid CSF Examination - Final Fluid Description - Final CSF Culture - Final No growth after 3 days. Assessment and Plan (1) Cognitive and behavioral changes: Status: Acute Plan 83M PMH htn, unspecified dementia, admitted to [facility] 02/13/24 for FTT, not taking meds or food, transfered to medicine 02/14/24. Cognitive and behavioral changes, Acute on chronic Neurology appreciated, follow up syphilis, Lyme EEG showing general slowing but seizure disorder MRI not consistent with CJD, less likely CJD testing pending All other CSF studies on hold until we get the CJD result CSF culture -ve WATER RECLAMATION SYSTEMS OPERATOR following, adjust diet Hypertension, uncotrolled Transdermal clonidine Start Amlodipine Subacute left distal radius fracture Soft cast Mood disorder Risperidone, trazodone DVT prophylaxis with Lovenox Full Code reason for continued hospitalization: Workup ongoing for altered mental status Patient sister name is Dr. Nate Genao and her phone number is [phone] to be contacted for any updates. Quality Stroke Does the patient have a stroke diagnosis?: No VTE Prior VTE?: No VTE Risk Level:: Medical - moderate - high VTE Device Contraindication: Treatment Not Indicated VTE Drug Contraindication: N/A - Med Ordered
--- NOTE | 2024-02-21 18:51 | MHC.SLORD ---
Speech Language Pathology Order Status: 3RD GRADE READING TEACHER attempted to see patient at lunch for dysphagia f/u- Lunch tray appeared to be untouched. Patient refused offerings and fell back asleep. Patient is on a ground diet (NDD2) with thin liquids, crushed pills in puree, 1:1 supervision with aspiration precautions. 3RD GRADE READING TEACHER will continue to follow during inpatient stay.
[2024-02-22] MEDS: 0.9 % Sodium Chloride Flush 3 ML SYRINGE IVFLUSH ×4 (00:13→21:07)
[2024-02-22 03:31] VITALS: BP 160/70; PULSE 88; RESP 18; TEMP 36.7; O2SAT 99
[2024-02-22 07:18] VITALS: BP 141/68; PULSE 70; RESP 20; TEMP 36.6; O2SAT 94
[2024-02-22] MEDS: polyethylene glycoL 3350 17 GM POWD.PACK PO (09:17)
[2024-02-22] MEDS: amLODIPine Besylate 5 MG TABLET PO (09:17)
[2024-02-22] MEDS: risperiDONE Oral Sol 1 MG/ML SOLUTION 0.5 MG PO (09:17)
[2024-02-22] MEDS: Miconazole Nitrate 2% Powder 85 GM Bottle 1 APPL TOPICAL ×2 (09:18→21:07)
[2024-02-22 11:12] VITALS: BP 138/72; PULSE 73; RESP 18; TEMP 36.8; O2SAT 95
--- NOTE | 2024-02-22 13:34 | HO.PM.IMPN ---
Subjective Subjective Date of Service: 02/22/24 Interval History: seen and evaluated this morning laying comfortable in his bed no other events Review of Systems Review of Systems: Yes all other systems are reviewed and are negative Physical Exam Vital Signs: Vital Signs: Last Vital Signs Temp 98.2 F 02/22/24 11:12 Pulse 73 02/22/24 11:12 Resp 18 02/22/24 11:12 BP 138/72 02/22/24 11:12 Pulse Ox 95 02/22/24 11:12 O2 Del Method Room Air 02/22/24 11:12 BMI result Body Mass Index 23.8 Const: Other: Constitutional : Awake, interactive, not in distress Neck : Normal inspection, Supple Cardiovascular : RRR, no JVP, no lower extremity edema Respiratory : good bilateral air entry, no crackles, wheezes or rhonchi Gastrointestinal: soft, lax, Normal bowel sounds, Non tender Skin : Warm, Dry Neurological : Alert & disoriented to place and time, No focal deficit Objective Data Active Medications Acetaminophen (Acetaminophen 325 Mg Tablet) 650 mg PO Q6H PRN PRN Reason: Pain, Mild (Pain Scale 1-3), fever or headache Al Hydroxide/Mg Hydroxide (Magnesium Hydrox/Alum Hydrox 30 Ml Oral.Susp) 30 ml PO Q6H PRN PRN Reason: Constipation Amlodipine Besylate (Amlodipine Besylate 5 Mg Tablet) 5 mg PO DAILY [facility]; Protocol Last Admin: 02/22/24 09:17 Dose: 5 mg Documented By: BERTO Benzonatate (Benzonatate 100 Mg Capsule) 100 mg PO TID PRN PRN Reason: Cough Calcium Carbonate (Calcium Carbonate 750 Mg Tab.Chew) 750 mg PO Q4H PRN PRN Reason: Heartburn Clonidine (Clonidine 0.1 Mg Patch.Tdwk) 0.1 mg TRANSDERMA Tu@0900 [facility]; Protocol Last Admin: 02/18/24 11:14 Dose: 0.1 mg Documented By: YENI Enoxaparin Sodium (Enoxaparin Sodium 40 Mg/0.4 Ml Syringe) 40 mg SUBCUT Q24H [facility] Last Admin: 02/16/24 19:27 Dose: 40 mg Documented By: SHLOMO Magnesium Hydroxide (Milk Of Magnesia 30 Ml Oral.Susp) 30 ml PO DAILY PRN PRN Reason: Constipation Melatonin (Melatonin 3 Mg Tablet) 6 mg PO BEDTIME PRN PRN Reason: Insomnia Last Admin: 02/20/24 19:34 Dose: 6 mg Documented By: DARIN Miconazole Nitrate (Miconazole Nitrate 2% Powder 85 Gm Bottle) 1 appl TOPICAL BID [facility]; Protocol Last Admin: 02/22/24 09:18 Dose: 1 appl Documented By: BERTO Nicotine Polacrilex (Nicotine Polacrilex 2 Mg Gum) 4 mg BUCCAL Q2H PRN PRN Reason: Nicotine Cravings Ondansetron HCl (Ondansetron Hcl 4 Mg/2 Ml Vial) 4 mg IVPUSH Q8H PRN PRN Reason: Nausea and Vomiting Polyethylene Glycol (Polyethylene Glycol 3350 17 Gm Powd.Pack) 17 gm PO DAILY [facility] Last Admin: 02/22/24 09:17 Dose: 17 gm Documented By: BERTO Quetiapine Fumarate (Quetiapine Fumarate 25 Mg Tablet) 25 mg PO ONCE PRN PRN Reason: about 45 min before eeg Last Admin: 02/17/24 09:40 Dose: 25 mg Documented By: SHLOMO Risperidone (Risperidone Oral Peg 1 Mg/Ml Solution) 0.5 mg PO BID [facility] Last Admin: 02/22/24 09:17 Dose: 0.5 mg Documented By: BERTO Sodium Chloride (0.9 % Sodium Chloride Flush 3 Ml Syringe) [facility] Last Admin: 02/22/24 09:18 Dose: 3 ml Documented By: BERTO Trazodone HCl (Trazodone Hcl 25 Mg Halftab) 25 mg PO BEDTIME PRN PRN Reason: Insomnia Last Admin: 02/20/24 19:34 Dose: 25 mg Documented By: DARIN Labs 02/15/24 06:10 02/15/24 06:10 Assessment and Plan (1) Cognitive and behavioral changes: Status: Acute Plan 83M PMH htn, unspecified dementia, admitted to [facility] 02/13/24 for FTT, not taking meds or food, transfered to medicine 02/14/24. Cognitive and behavioral changes, Acute on chronic Neurology appreciated, follow up syphilis, Lyme EEG showing general slowing but seizure disorder MRI not consistent with CJD, less likely CSF culture -ve All other CSF studies on hold until we get the CJD result CJD testing pending [employer] following, adjust diet Hypertension, uncotrolled Transdermal clonidine Start Amlodipine Subacute left distal radius fracture Soft cast Mood disorder Risperidone, trazodone DVT prophylaxis with Lovenox Full Code reason for continued hospitalization: Workup ongoing for altered mental status The patient HCP is his step-daughter Alcides can be reached on [phone] Patient sister name is Dr. Nate Genao and her phone number is [phone] to be contacted for any updates. Quality Stroke Does the patient have a stroke diagnosis?: No VTE Prior VTE?: No VTE Risk Level:: Medical - moderate - high VTE Device Contraindication: Treatment Not Indicated VTE Drug Contraindication: N/A - Med Ordered
[2024-02-22 15:40] VITALS: BP 145/62; PULSE 85; RESP 18; TEMP 36.5; O2SAT 97
[2024-02-22 19:34] VITALS: BP 149/71; PULSE 91; RESP 18; TEMP 36.4; O2SAT 96
[2024-02-23 04:00] VITALS: BP 165/85; PULSE 69; RESP 18; TEMP 36.3; O2SAT 94
[2024-02-23 07:15] VITALS: BP 160/80; PULSE 74; RESP 18; TEMP 36.6; O2SAT 96
[2024-02-23] MEDS: risperiDONE Oral Sol 1 MG/ML SOLUTION 0.5 MG PO ×2 (07:34→23:44)
[2024-02-23] MEDS: amLODIPine Besylate 5 MG TABLET PO (07:34)
[2024-02-23] MEDS: polyethylene glycoL 3350 17 GM POWD.PACK PO (07:34)
[2024-02-23] MEDS: Miconazole Nitrate 2% Powder 85 GM Bottle 1 APPL TOPICAL ×2 (07:35→23:44)
[2024-02-23] MEDS: 0.9 % Sodium Chloride Flush 3 ML SYRINGE IVFLUSH ×3 (07:35→23:45)
--- NOTE | 2024-02-23 14:04 | P.PNIM_ITS ---
Subjective Subjective Date of Service: 02/23/24 Interval History: seen and evaluated this morning laying comfortable in his bed no other events Review of Systems Review of Systems: Yes all other systems are reviewed and are negative Physical Exam 2 Vital Signs: Vital Signs: Last Vital Signs Temp 97.8 F 02/23/24 07:15 Pulse 74 02/23/24 07:15 Resp 18 02/23/24 07:15 BP 160/80 H 02/23/24 07:15 Pulse Ox 96 02/23/24 07:15 O2 Del Method Room Air 02/23/24 07:15 BMI result Body Mass Index 23.8 Const: Other: Constitutional : Awake, interactive, not in distress Neck : Normal inspection, Supple Cardiovascular : RRR, no JVP, no lower extremity edema Respiratory : good bilateral air entry, no crackles, wheezes or rhonchi Gastrointestinal: soft, lax, Normal bowel sounds, Non tender Skin : Warm, Dry Neurological : Alert & disoriented to place and time, No focal deficit Objective Data Active Medications Acetaminophen (Acetaminophen 325 Mg Tablet) 650 mg PO Q6H PRN PRN Reason: Pain, Mild (Pain Scale 1-3), fever or headache Al Hydroxide/Mg Hydroxide (Magnesium Hydrox/Alum Hydrox 30 Ml Oral.Susp) 30 ml PO Q6H PRN PRN Reason: Constipation Amlodipine Besylate (Amlodipine Besylate 5 Mg Tablet) 5 mg PO DAILY [facility]; Protocol Last Admin: 02/23/24 07:34 Dose: 5 mg Documented By: BERTO Benzonatate (Benzonatate 100 Mg Capsule) 100 mg PO TID PRN PRN Reason: Cough Calcium Carbonate (Calcium Carbonate 750 Mg Tab.Chew) 750 mg PO Q4H PRN PRN Reason: Heartburn Clonidine (Clonidine 0.1 Mg Patch.Tdwk) 0.1 mg TRANSDERMA Tu@0900 [facility]; Protocol Last Admin: 02/18/24 11:14 Dose: 0.1 mg Documented By: YENI Enoxaparin Sodium (Enoxaparin Sodium 40 Mg/0.4 Ml Syringe) 40 mg SUBCUT Q24H [facility] Last Admin: 02/16/24 19:27 Dose: 40 mg Documented By: SHLOMO Magnesium Hydroxide (Milk Of Magnesia 30 Ml Oral.Susp) 30 ml PO DAILY PRN PRN Reason: Constipation Melatonin (Melatonin 3 Mg Tablet) 6 mg PO BEDTIME PRN PRN Reason: Insomnia Last Admin: 02/20/24 19:34 Dose: 6 mg Documented By: DARIN Miconazole Nitrate (Miconazole Nitrate 2% Powder 85 Gm Bottle) 1 appl TOPICAL BID [facility]; Protocol Last Admin: 02/23/24 07:35 Dose: 1 appl Documented By: BERTO Nicotine Polacrilex (Nicotine Polacrilex 2 Mg Gum) 4 mg BUCCAL Q2H PRN PRN Reason: Nicotine Cravings Ondansetron HCl (Ondansetron Hcl 4 Mg/2 Ml Vial) 4 mg IVPUSH Q8H PRN PRN Reason: Nausea and Vomiting Polyethylene Glycol (Polyethylene Glycol 3350 17 Gm Powd.Pack) 17 gm PO DAILY [facility] Last Admin: 02/23/24 07:34 Dose: 17 gm Documented By: BERTO Quetiapine Fumarate (Quetiapine Fumarate 25 Mg Tablet) 25 mg PO ONCE PRN PRN Reason: about 45 min before eeg Last Admin: 02/17/24 09:40 Dose: 25 mg Documented By: SHLOMO Risperidone (Risperidone Oral Peg 1 Mg/Ml Solution) 0.5 mg PO BID [facility] Last Admin: 02/23/24 07:34 Dose: 0.5 mg Documented By: BERTO Sodium Chloride (0.9 % Sodium Chloride Flush 3 Ml Syringe) 3 ml IVFLUSH QSHIFT [facility] Last Admin: 02/23/24 07:35 Dose: 3 ml Documented By: BERTO Trazodone HCl (Trazodone Hcl 25 Mg Halftab) 25 mg PO BEDTIME PRN PRN Reason: Insomnia Last Admin: 02/20/24 19:34 Dose: 25 mg Documented By: DARIN Labs 02/15/24 06:10 02/15/24 06:10 Assessment and Plan (1) Cognitive and behavioral changes: Status: Acute Plan 83M PMH htn, unspecified dementia, admitted to [facility] 02/13/24 for FTT, not taking meds or food, transfered to medicine 02/14/24. Cognitive and behavioral changes, Acute on chronic Neurology appreciated, follow up syphilis, Lyme EEG showing general slowing but seizure disorder MRI not consistent with CJD, less likely CSF culture -ve All other CSF studies on hold until we get the CJD result CJD testing pending RISK CONTROL SPECIALIST following, adjust diet Hypertension, uncotrolled Transdermal clonidine Start Amlodipine Subacute left distal radius fracture Soft cast Mood disorder Risperidone, trazodone DVT prophylaxis with Lovenox Full Code reason for continued hospitalization: Workup ongoing for altered mental status The patient HCP is his step-daughter Alcides can be reached on [phone] Patient sister name is Dr. Nate Genao and her phone number is [phone] to be contacted for any updates. Quality Stroke Does the patient have a stroke diagnosis?: No VTE Prior VTE?: No VTE Risk Level:: Medical - moderate - high VTE Device Contraindication: Treatment Not Indicated VTE Drug Contraindication: N/A - Med Ordered
[2024-02-23 15:28] VITALS: BP 137/73; PULSE 80; RESP 18; TEMP 37.2; O2SAT 96
[2024-02-24 03:41] VITALS: BP 132/68; PULSE 83; RESP 18; TEMP 36.4; O2SAT 96
[2024-02-24 08:00] VITALS: BP 172/82; PULSE 85; RESP 16; TEMP 36.4; O2SAT 96
[2024-02-24] MEDS: amLODIPine Besylate 5 MG TABLET PO (08:43)
[2024-02-24] MEDS: risperiDONE Oral Sol 1 MG/ML SOLUTION 0.5 MG PO ×2 (08:43→20:47)
[2024-02-24] MEDS: polyethylene glycoL 3350 17 GM POWD.PACK PO (08:44)
[2024-02-24] MEDS: 0.9 % Sodium Chloride Flush 3 ML SYRINGE IVFLUSH (08:50)
[2024-02-24] MEDS: Miconazole Nitrate 2% Powder 85 GM Bottle 1 APPL TOPICAL (08:51)
--- NOTE | 2024-02-24 10:26 | MHC.CM.PN ---
Per ROUNDS discussion, Patient is not yet medically cleared for dc (w/u for AMS continues/test results are pending). Returning to [facility] is the goal, pending Care Team Consult and CM will continue to follow.
--- NOTE | 2024-02-24 11:03 | P.PNIM_ITS ---
Subjective Subjective Date of Service: 02/24/24 Interval History: seen and evaluated this morning laying comfortable in his bed no other events Physical Exam 2 Vital Signs: Vital Signs: Last Vital Signs Temp 97.5 F 02/24/24 08:00 Pulse 85 02/24/24 08:00 Resp 16 02/24/24 08:00 BP 172/82 H 02/24/24 08:00 Pulse Ox 96 02/24/24 08:00 O2 Del Method Room Air 02/24/24 08:00 BMI result Body Mass Index 23.8 Const: Other: Constitutional : Awake, interactive, not in distress Neck : Normal inspection, Supple Cardiovascular : RRR, no JVP, no lower extremity edema Respiratory : good bilateral air entry, no crackles, wheezes or rhonchi Gastrointestinal: soft, lax, Normal bowel sounds, Non tender Skin : Warm, Dry Neurological : Alert & disoriented to place and time, No focal deficit Objective Data Active Medications Acetaminophen (Acetaminophen 325 Mg Tablet) 650 mg PO Q6H PRN PRN Reason: Pain, Mild (Pain Scale 1-3), fever or headache Al Hydroxide/Mg Hydroxide (Magnesium Hydrox/Alum Hydrox 30 Ml Oral.Susp) 30 ml PO Q6H PRN PRN Reason: Constipation Amlodipine Besylate (Amlodipine Besylate 5 Mg Tablet) 5 mg PO DAILY [facility]; Protocol Last Admin: 02/24/24 08:43 Dose: 5 mg Documented By: ANNA Benzonatate (Benzonatate 100 Mg Capsule) 100 mg PO TID PRN PRN Reason: Cough Calcium Carbonate (Calcium Carbonate 750 Mg Tab.Chew) 750 mg PO Q4H PRN PRN Reason: Heartburn Clonidine (Clonidine 0.1 Mg Patch.Tdwk) 0.1 mg TRANSDERMA Tu@0900 [facility]; Protocol Last Admin: 02/18/24 11:14 Dose: 0.1 mg Documented By: YENI Enoxaparin Sodium (Enoxaparin Sodium 40 Mg/0.4 Ml Syringe) 40 mg SUBCUT Q24H [facility] Last Admin: 02/16/24 19:27 Dose: 40 mg Documented By: SHLOMO Magnesium Hydroxide (Milk Of Magnesia 30 Ml Oral.Susp) 30 ml PO DAILY PRN PRN Reason: Constipation Melatonin (Melatonin 3 Mg Tablet) 6 mg PO BEDTIME PRN PRN Reason: Insomnia Last Admin: 02/20/24 19:34 Dose: 6 mg Documented By: DARIN Miconazole Nitrate (Miconazole Nitrate 2% Powder 85 Gm Bottle) 1 appl TOPICAL BID [facility]; Protocol Last Admin: 02/24/24 08:51 Dose: 1 appl Documented By: ANNA Nicotine Polacrilex (Nicotine Polacrilex 2 Mg Gum) 4 mg BUCCAL Q2H PRN PRN Reason: Nicotine Cravings Ondansetron HCl (Ondansetron Hcl 4 Mg/2 Ml Vial) 4 mg IVPUSH Q8H PRN PRN Reason: Nausea and Vomiting Polyethylene Glycol (Polyethylene Glycol 3350 17 Gm Powd.Pack) 17 gm PO DAILY [facility] Last Admin: 02/24/24 08:44 Dose: 17 gm Documented By: ANNA Quetiapine Fumarate (Quetiapine Fumarate 25 Mg Tablet) 25 mg PO ONCE PRN PRN Reason: about 45 min before eeg Last Admin: 02/17/24 09:40 Dose: 25 mg Documented By: SHLOMO Risperidone (Risperidone Oral Peg 1 Mg/Ml Solution) 0.5 mg PO BID [facility] Last Admin: 02/24/24 08:43 Dose: 0.5 mg Documented By: ANNA Sodium Chloride (0.9 % Sodium Chloride Flush 3 Ml Syringe) [facility] Last Admin: 02/24/24 08:50 Dose: 3 ml Documented By: ANNA Trazodone HCl (Trazodone Hcl 25 Mg Halftab) 25 mg PO BEDTIME PRN PRN Reason: Insomnia Last Admin: 02/20/24 19:34 Dose: 25 mg Documented By: DARIN Labs 02/15/24 06:10 02/15/24 06:10 Assessment and Plan (1) Cognitive and behavioral changes: Status: Acute Plan 83M PMH htn, unspecified dementia, admitted to [facility] 02/13/24 for FTT, not taking meds or food, transfered to medicine 02/14/24. Cognitive and behavioral changes, Acute on chronic Neurology appreciated, follow up syphilis, Lyme EEG showing general slowing but seizure disorder MRI not consistent with CJD, less likely CSF culture -ve All other CSF studies on hold until we get the CJD result CJD testing pending SOCCER PLAYER following, adjust diet Hypertension, uncotrolled Transdermal clonidine Start Amlodipine Subacute left distal radius fracture Soft cast Mood disorder Risperidone, trazodone DVT prophylaxis with Lovenox Full Code reason for continued hospitalization: Workup ongoing for altered mental status The patient HCP is his step-daughter Alcides can be reached on [phone] Patient sister name is Dr. Nate Genao and her phone number is [phone] to be contacted for any updates. Quality Stroke Does the patient have a stroke diagnosis?: No VTE Prior VTE?: No VTE Risk Level:: Medical - moderate - high VTE Device Contraindication: Treatment Not Indicated VTE Drug Contraindication: N/A - Med Ordered
--- NOTE | 2024-02-24 13:28 | MHC.CLN ---
F/U PT IS MODERATELY MALNOURISHED PO INTAKE VARIABLE, SLIGHTLY IMPROVED CONSUMING BETWEEN 25-100% DIET RX: GRD/MECH SOFT-APPROPRIATE ENVIRONMENTAL RESEARCH SCIENTIST FOLLOWING FOR APPROPRIATE DIET CONSISTENCY PT IS A 1:1 FEED. PT RECEIVING MAGIC CUP TID TO INCREASE KCALS SUPPLEMENT PROVIDES 870KCALS, 27G PROTEIN CONTINUE TO MONITOR PO INTAKE AND ENCOURAGE SUPPLEMENTS ADD WEEKLY WEIGHTS R/T MALNUTRITION
[2024-02-24 13:29] VITALS: BMI 23.4
--- NOTE | 2024-02-24 14:49 | MHC.SL.SWA ---
Speech Pathologist Impression: Minimal dysphagia when alert and self feeding, could fluctuate given variable mental status Risk of Aspiration Due to: Lethargy Medically Fragile Neurological Condition Poor PO Intake Reduced Cognition Dysphasia Diet Status: Recommend continue on Ground/Mechanical (NDD2) with thin liquids, pills crushed in puree. Liquid Consistency and Strategies for Safe Swallow: Liquid Intake Recommendation: Thin Liquid Intake Strategies: Small Sips Solid Food Consistency: Dietary Recommendations: Grnd/Mech Altered (NDD2) Additional Modifications to Solid Foods: Patient would benefit from full supervision at meals to assure his safety, progress and access to food, at a minimum needs intermittent supervision with full assistance with set up of tray, opening of items, adding gravies, salt etc., then removing any items that may cause confusion. Oral Medication Intake: Crushed with Puree Please contact the pharmacy regarding appropriate crushable or liquid drug formulations that are available whenever modified delivery is recommended. Compensatory Strategies and Precautions to be Taken for Safe Swallow: Sitting Upright (90 deg) Liquids from Straw Small Bites and Sips Alternate Liquids/Solids Supervision While Eating and Drinking for Safe Swallow: Total Supervision (1:1) Foods to Avoid: Swallowing Recommended Treatments: Compens. Strategy Educat. Recommendation for Speech: Inpatient Speech Therapy Comment: Multimodal cueing orients pt to task of eating, with improved independence observed recently. Tray set up and supervision, aspiration precautions: upright positioning, tray set up, prompting pt to pay attention to/recognize utensils, prompt to alternate consistences. ATTENDING ANESTHESIOLOGIST to re-evaluate PO tolerance as indicated. Frequency/Duration: Daily Date Range for Service Req: Timeline to reassess: PRN Photo Tech Clinican/Clinical Fellow: No Supervisory Statement: I have reviewed and agree with the student/clinical fellow's documentation: N/A Speech Language Pathologist: Penny Del Cid M.S., [facility]-ATTENDING ANESTHESIOLOGIST
[2024-02-24 15:04] VITALS: BP 163/81; PULSE 90; RESP 16; TEMP 36.3; O2SAT 95
[2024-02-24 19:57] VITALS: BP 171/81; PULSE 89; RESP 16; TEMP 36.5; O2SAT 95
[2024-02-24] MEDS: traZODone HCL 25 MG HALFTAB PO (20:47)
--- NOTE | 2024-02-25 05:28 | PC.NURSE ---
Pt AO to self only, confused, hallucinations visual and auditory overnight. He had a BM, became combative w/staff, verbally insulting staff also. 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 Eventually he did let go. Camera in room, call palmer within reach, bed alarm on.
[2024-02-25 07:40] VITALS: BP 153/69; PULSE 72; RESP 16; TEMP 36.1; O2SAT 96
[2024-02-25] MEDS: polyethylene glycoL 3350 17 GM POWD.PACK PO (10:12)
[2024-02-25] MEDS: amLODIPine Besylate 5 MG TABLET PO (10:12)
[2024-02-25] MEDS: 0.9 % Sodium Chloride Flush 3 ML SYRINGE IVFLUSH ×2 (10:16→20:35)
[2024-02-25] MEDS: risperiDONE Oral Sol 1 MG/ML SOLUTION 0.5 MG PO ×2 (10:16→20:31)
[2024-02-25] MEDS: Miconazole Nitrate 2% Powder 85 GM Bottle 1 APPL TOPICAL ×2 (10:18→20:32)
--- NOTE | 2024-02-25 10:57 | P.PNIM_ITS ---
Subjective Subjective Date of Service: 02/25/24 Interval History: seen and evaluated this morning laying comfortable in his bed no other events Review of Systems Review of Systems: Yes all other systems are reviewed and are negative Physical Exam 2 Vital Signs: Vital Signs: Last Vital Signs Temp 97.0 F 02/25/24 07:40 Pulse 72 02/25/24 07:40 Resp 16 02/25/24 07:40 BP 153/69 H 02/25/24 07:40 Pulse Ox 96 02/25/24 07:40 O2 Del Method Room Air 02/25/24 07:40 BMI result Body Mass Index 23.4 Const: Other: Constitutional : Awake, interactive, not in distress Neck : Normal inspection, Supple Cardiovascular : RRR, no JVP, no lower extremity edema Respiratory : good bilateral air entry, Gastrointestinal: soft, lax, Skin : Warm, Dry Neurological : Alert & disoriented to place and time, No focal deficit Objective Data Active Medications Acetaminophen (Acetaminophen 325 Mg Tablet) 650 mg PO Q6H PRN PRN Reason: Pain, Mild (Pain Scale 1-3), fever or headache Al Hydroxide/Mg Hydroxide (Magnesium Hydrox/Alum Hydrox 30 Ml Oral.Susp) 30 ml PO Q6H PRN PRN Reason: Constipation Amlodipine Besylate (Amlodipine Besylate 5 Mg Tablet) 5 mg PO DAILY [facility]; Protocol Last Admin: 02/25/24 10:12 Dose: 5 mg Documented By: ANNA Benzonatate (Benzonatate 100 Mg Capsule) 100 mg PO TID PRN PRN Reason: Cough Calcium Carbonate (Calcium Carbonate 750 Mg Tab.Chew) 750 mg PO Q4H PRN PRN Reason: Heartburn Clonidine (Clonidine 0.1 Mg Patch.Tdwk) 0.1 mg TRANSDERMA Tu@0900 [facility]; Protocol Last Admin: 02/18/24 11:14 Dose: 0.1 mg Documented By: YENI Enoxaparin Sodium (Enoxaparin Sodium 40 Mg/0.4 Ml Syringe) 40 mg SUBCUT Q24H [facility] Last Admin: 02/16/24 19:27 Dose: 40 mg Documented By: SHLOMO Magnesium Hydroxide (Milk Of Magnesia 30 Ml Oral.Susp) 30 ml PO DAILY PRN PRN Reason: Constipation Melatonin (Melatonin 3 Mg Tablet) 6 mg PO BEDTIME PRN PRN Reason: Insomnia Last Admin: 02/20/24 19:34 Dose: 6 mg Documented By: DARIN Miconazole Nitrate (Miconazole Nitrate 2% Powder 85 Gm Bottle) 1 appl TOPICAL BID [facility]; Protocol Last Admin: 02/25/24 10:18 Dose: 1 appl Documented By: ANNA Nicotine Polacrilex (Nicotine Polacrilex 2 Mg Gum) 4 mg BUCCAL Q2H PRN PRN Reason: Nicotine Cravings Ondansetron HCl (Ondansetron Hcl 4 Mg/2 Ml Vial) 4 mg IVPUSH Q8H PRN PRN Reason: Nausea and Vomiting Polyethylene Glycol (Polyethylene Glycol 3350 17 Gm Powd.Pack) 17 gm PO DAILY [facility] Last Admin: 02/25/24 10:12 Dose: 17 gm Documented By: ANNA Quetiapine Fumarate (Quetiapine Fumarate 25 Mg Tablet) 25 mg PO ONCE PRN PRN Reason: about 45 min before eeg Last Admin: 02/17/24 09:40 Dose: 25 mg Documented By: SHLOMO Risperidone (Risperidone Oral Peg 1 Mg/Ml Solution) 0.5 mg PO BID [facility] Last Admin: 02/25/24 10:16 Dose: 0.5 mg Documented By: ANNA Sodium Chloride (0.9 % Sodium Chloride Flush 3 Ml Syringe) [facility] Last Admin: 02/25/24 10:16 Dose: 3 ml Documented By: ANNA Trazodone HCl (Trazodone Hcl 25 Mg Halftab) 25 mg PO BEDTIME PRN PRN Reason: Insomnia Last Admin: 02/24/24 20:47 Dose: 25 mg Documented By: JAK Labs 02/15/24 06:10 02/15/24 06:10 Assessment and Plan (1) Cognitive and behavioral changes: Status: Acute Plan 83M PMH htn, unspecified dementia, admitted to [facility] 02/13/24 for FTT, not taking meds or food, transfered to medicine 02/14/24. Cognitive and behavioral changes, Acute on chronic Neurology appreciated, follow up syphilis, Lyme EEG showing general slowing but seizure disorder MRI not consistent with CJD, less likely CSF culture -ve All other CSF studies on hold until we get the CJD result CJD testing pending CORPORATE CLAIMS EXAMINER following, adjust diet Hypertension, uncotrolled Transdermal clonidine Start Amlodipine Subacute left distal radius fracture Soft cast Mood disorder Risperidone, trazodone DVT prophylaxis with Lovenox Full Code reason for continued hospitalization: Workup ongoing for altered mental status The patient HCP is his step-daughter Alcides can be reached on [phone] Patient sister name is Dr. Nate Genao and her phone number is [phone] to be contacted for any updates. Quality Stroke Does the patient have a stroke diagnosis?: No VTE Prior VTE?: No VTE Risk Level:: Medical - moderate - high VTE Device Contraindication: Treatment Not Indicated VTE Drug Contraindication: N/A - Med Ordered
[2024-02-25] MEDS: cloNIDine 0.1 MG PATCH.TDWK TRANSDERMA (11:18)
[2024-02-25 16:00] VITALS: BP 161/68; PULSE 83; RESP 16; TEMP 36.4; O2SAT 92
[2024-02-25 19:46] VITALS: BP 149/72; PULSE 80; RESP 16; TEMP 36.7; O2SAT 94
[2024-02-25] MEDS: traZODone HCL 25 MG HALFTAB PO (20:31)
[2024-02-26 00:57] VITALS: RESP 20
[2024-02-26 03:34] VITALS: BP 148/73; PULSE 71; RESP 20; TEMP 36.3; O2SAT 95
[2024-02-26 07:15] VITALS: BP 135/69; PULSE 69; RESP 18; TEMP 36.1; O2SAT 96
[2024-02-26 09:47] VITALS: BP 135/69
[2024-02-26] MEDS: polyethylene glycoL 3350 17 GM POWD.PACK PO (09:47)
[2024-02-26] MEDS: amLODIPine Besylate 5 MG TABLET PO (09:47)
[2024-02-26] MEDS: 0.9 % Sodium Chloride Flush 3 ML SYRINGE IVFLUSH (09:47)
[2024-02-26] MEDS: risperiDONE Oral Sol 1 MG/ML SOLUTION 0.5 MG PO ×2 (09:48→21:36)
[2024-02-26] MEDS: Miconazole Nitrate 2% Powder 85 GM Bottle 1 APPL TOPICAL ×2 (10:16→21:54)
--- NOTE | 2024-02-26 10:24 | MHC.CM.PN ---
Per ROUNDS discussion, Patient is not yet medically cleared for dc (pending test results); goal will be for a Care Team Consult, once medically cleared for ? of return to [facility] VS PT's recommendation for LTC (in a locked unit). CM will follow.
--- NOTE | 2024-02-26 10:46 | MHC.CLN ---
F/U PT IS MODERATELY MALNOURISHED WT STABLE PO INTAKE VARIABLE, SLIGHTLY IMPROVED CONSUMING BETWEEN 50-100% DIET RX: CHOPPED-APPROPRIATE M48/M60 TANK DRIVER FOLLOWING FOR APPROPRIATE DIET CONSISTENCY PT IS A 1:1 FEED. PT RECEIVING MAGIC CUP TID TO INCREASE KCALS SUPPLEMENT PROVIDES 870KCALS, 27G PROTEIN CONTINUE TO MONITOR PO INTAKE AND ENCOURAGE SUPPLEMENTS WEEKLY WEIGHTS R/T MALNUTRITION
--- NOTE | 2024-02-26 12:07 | HO.PM.IMPN ---
Subjective Subjective Date of Service: 02/26/24 Interval History: seen and evaluated this morning laying comfortable in his bed no other events Review of Systems Review of Systems: Yes all other systems are reviewed and are negative Physical Exam Vital Signs: Vital Signs: Last Vital Signs Temp 96.9 F 02/26/24 07:15 Pulse 69 02/26/24 07:15 Resp 18 02/26/24 07:15 BP 135/69 02/26/24 09:47 Pulse Ox 96 02/26/24 07:15 O2 Del Method Room Air 02/26/24 07:15 BMI result Body Mass Index 23.4 Const: Other: Constitutional : Awake, interactive, not in distress Neck : Normal inspection, Supple Cardiovascular : RRR, no JVP, no lower extremity edema Respiratory : good bilateral air entry, Gastrointestinal: soft, lax, Skin : Warm, Dry Neurological : Alert & disoriented to place and time, No focal deficit Objective Data Active Medications Acetaminophen (Acetaminophen 325 Mg Tablet) 650 mg PO Q6H PRN PRN Reason: Pain, Mild (Pain Scale 1-3), fever or headache Al Hydroxide/Mg Hydroxide (Magnesium Hydrox/Alum Hydrox 30 Ml Oral.Susp) 30 ml PO Q6H PRN PRN Reason: Constipation Amlodipine Besylate (Amlodipine Besylate 5 Mg Tablet) 5 mg PO DAILY [facility]; Protocol Last Admin: 02/26/24 09:47 Dose: 5 mg Documented By: FARAZ Benzonatate (Benzonatate 100 Mg Capsule) 100 mg PO TID PRN PRN Reason: Cough Calcium Carbonate (Calcium Carbonate 750 Mg Tab.Chew) 750 mg PO Q4H PRN PRN Reason: Heartburn Clonidine (Clonidine 0.1 Mg Patch.Tdwk) 0.1 mg TRANSDERMA Tu@0900 [facility]; Protocol Last Admin: 02/25/24 11:18 Dose: 0.1 mg Documented By: ANNA Enoxaparin Sodium (Enoxaparin Sodium 40 Mg/0.4 Ml Syringe) 40 mg SUBCUT Q24H [facility] Last Admin: 02/16/24 19:27 Dose: 40 mg Documented By: SHLOMO Magnesium Hydroxide (Milk Of Magnesia 30 Ml Oral.Susp) 30 ml PO DAILY PRN PRN Reason: Constipation Melatonin (Melatonin 3 Mg Tablet) 6 mg PO BEDTIME PRN PRN Reason: Insomnia Last Admin: 02/20/24 19:34 Dose: 6 mg Documented By: DARIN Miconazole Nitrate (Miconazole Nitrate 2% Powder 85 Gm Bottle) 1 appl TOPICAL BID [facility]; Protocol Last Admin: 02/26/24 10:16 Dose: 1 appl Documented By: FARAZ Nicotine Polacrilex (Nicotine Polacrilex 2 Mg Gum) 4 mg BUCCAL Q2H PRN PRN Reason: Nicotine Cravings Ondansetron HCl (Ondansetron Hcl 4 Mg/2 Ml Vial) 4 mg IVPUSH Q8H PRN PRN Reason: Nausea and Vomiting Polyethylene Glycol (Polyethylene Glycol 3350 17 Gm Powd.Pack) 17 gm PO DAILY [facility] Last Admin: 02/26/24 09:47 Dose: 17 gm Documented By: FARAZ Quetiapine Fumarate (Quetiapine Fumarate 25 Mg Tablet) 25 mg PO ONCE PRN PRN Reason: about 45 min before eeg Last Admin: 02/17/24 09:40 Dose: 25 mg Documented By: SHLOMO Risperidone (Risperidone Oral Peg 1 Mg/Ml Solution) 0.5 mg PO BID [facility] Last Admin: 02/26/24 09:48 Dose: 0.5 mg Documented By: FARAZ Sodium Chloride (0.9 % Sodium Chloride Flush 3 Ml Syringe) 3 ml IVFLUSH QSHIFT [facility] Last Admin: 02/26/24 09:47 Dose: 3 ml Documented By: FARAZ Trazodone HCl (Trazodone Hcl 25 Mg Halftab) 25 mg PO BEDTIME PRN PRN Reason: Insomnia Last Admin: 02/25/24 20:31 Dose: 25 mg Documented By: LIZMAR Labs 02/15/24 06:10 02/15/24 06:10 Assessment and Plan (1) Cognitive and behavioral changes: Status: Acute Plan 83M PMH htn, unspecified dementia, admitted to [facility] 02/13/24 for FTT, not taking meds or food, transfered to medicine 02/14/24. Cognitive and behavioral changes, Acute on chronic Neurology appreciated, negative syphilis, Lyme EEG showing general slowing but seizure disorder MRI not consistent with CJD, less likely CSF culture -ve All other CSF studies on hold until we get the CJD result CJD testing pending EMBALMER ASSISTANT following, adjust diet Hypertension, uncotrolled Transdermal clonidine Start Amlodipine Subacute left distal radius fracture Soft cast Mood disorder Risperidone, trazodone DVT prophylaxis with Lovenox Full Code reason for continued hospitalization: Workup ongoing for altered mental status The patient HCP is his step-daughter Alcides can be reached on [phone] Patient sister name is Dr. Nate Genao and her phone number is [phone] to be contacted for any updates. Quality Stroke Does the patient have a stroke diagnosis?: No VTE Prior VTE?: No VTE Risk Level:: Medical - moderate - high VTE Device Contraindication: Treatment Not Indicated VTE Drug Contraindication: N/A - Med Ordered
--- NOTE | 2024-02-26 12:08 | MHC.CM.PN ---
CM received a call from Step Daughter/HCP/Alcides, who is requesting a letter describing Patient's Mental status (needed to close out the estate of Alcides's Mother/Patient's ); KORI has relayed this request to MD(? letter from Attending or formal Psych Eval for capacity). Alcides has also indicated that she is NOT willing to be involved with Patient's [employer] nilsa(other than providing information on one bank account that has both her and Patient's name on it). KORI has let CM/Payroll Specialist/Mindi know of this situation/need for Conservator(Alcides suggested asking Patient's Sister/Dr. Sullivan to be the Conservator).Also, Alcides wants staff to know that Patient referred to his late as, Mindi. has been made aware and KORI will continue to follow.
--- NOTE | 2024-02-26 12:58 | PM.EVENT ---
Event Note Date of Service: 02/26/24 Event Note: patient with altered mentation, cognitive impairment, poor insight into medical condition, poor copmrehension, poor retention of information. patient lacks capacity to make most decisions. Time Spent With Patient Time: Total time managing care of this patient today ____ minutes.
--- NOTE | 2024-02-26 13:33 | MHC.SL.SWA ---
Speech Pathologist Impression: Risk of Aspiration Due to: Lethargy Medically Fragile Neurological Condition Poor PO Intake Reduced Cognition Dysphasia Diet Status: Recommend continue on Ground/Mechanical (NDD2) with thin liquids, pills crushed in puree. Liquid Consistency and Strategies for Safe Swallow: Liquid Intake Recommendation: Thin Liquid Intake Strategies: Small Sips Solid Food Consistency: Dietary Recommendations: Grnd/Mech Altered (NDD2) Additional Modifications to Solid Foods: Patient benefits from intermittent supervision at meals to assure his safety, progress and access to food. Oral Medication Intake: Crushed with Puree Please contact the pharmacy regarding appropriate crushable or liquid drug formulations that are available whenever modified delivery is recommended. Compensatory Strategies and Precautions to be Taken for Safe Swallow: Sitting Upright (90 deg) Liquids from Straw Small Bites and Sips Alternate Liquids/Solids Supervision While Eating and Drinking for Safe Swallow: Intermittent supervision Foods to Avoid: Swallowing Recommended Treatments: Compens. Strategy Educat. Recommendation for Speech: Inpatient Speech Therapy Comment: Verbal cueing to orient pt to task of eating, full feed d/t waxing and waning of mentation. Aspiration precautions, re-evaluate PO tolerance as indicated. Frequency/Duration: Daily Date Range for Service Req: Timeline to reassess: PRN Rehab Department Manager Clinican/Clinical Fellow: No Supervisory Statement: I have reviewed and agree with the student/clinical fellow's documentation: N/A Speech Language Pathologist: Penny Del Cid M.S., [facility]-REHAB THERAPY MANAGER
[2024-02-26 15:02] VITALS: BP 148/75; PULSE 87; RESP 18; TEMP 37; O2SAT 98
[2024-02-26 20:00] VITALS: BP 147/76; PULSE 87; RESP 12; TEMP 36.6; O2SAT 95
[2024-02-26] MEDS: traZODone HCL 25 MG HALFTAB PO (21:36)
[2024-02-27] VITALS (7 sets, daily range): BP systolic 133–171; BP diastolic 62–80; PULSE 69–88; RESP 14–20; TEMP 36.3–36.6; O2SAT 94–95
--- NOTE | 2024-02-27 09:49 | P.PNIM_ITS ---
Subjective Subjective Date of Service: 02/27/24 Interval History: seen and evaluated this morning laying comfortable in his bed no other events Review of Systems Review of Systems: Yes all other systems are reviewed and are negative Physical Exam 2 Vital Signs: Vital Signs: Last Vital Signs Temp 97.5 F 02/27/24 07:49 Pulse 69 02/27/24 07:49 Resp 18 02/27/24 07:49 BP 134/62 02/27/24 07:49 Pulse Ox 95 02/27/24 07:49 O2 Del Method Room Air 02/27/24 07:49 BMI result Body Mass Index 23.4 Const: Other: Constitutional : Awake, interactive, not in distress Neck : Normal inspection, Supple Cardiovascular : RRR, no JVP, no lower extremity edema Respiratory : good bilateral air entry, Gastrointestinal: soft, lax, Skin : Warm, Dry Neurological : Alert & disoriented to place and time, No focal deficit Objective Data Active Medications Acetaminophen (Acetaminophen 325 Mg Tablet) 650 mg PO Q6H PRN PRN Reason: Pain, Mild (Pain Scale 1-3), fever or headache Al Hydroxide/Mg Hydroxide (Magnesium Hydrox/Alum Hydrox 30 Ml Oral.Susp) 30 ml PO Q6H PRN PRN Reason: Constipation Amlodipine Besylate (Amlodipine Besylate 5 Mg Tablet) 5 mg PO DAILY [facility]; Protocol Last Admin: 02/26/24 09:47 Dose: 5 mg Documented By: FARAZ Benzonatate (Benzonatate 100 Mg Capsule) 100 mg PO TID PRN PRN Reason: Cough Calcium Carbonate (Calcium Carbonate 750 Mg Tab.Chew) 750 mg PO Q4H PRN PRN Reason: Heartburn Clonidine (Clonidine 0.1 Mg Patch.Tdwk) 0.1 mg TRANSDERMA Tu@0900 [facility]; Protocol Last Admin: 02/25/24 11:18 Dose: 0.1 mg Documented By: ANNA Enoxaparin Sodium (Enoxaparin Sodium 40 Mg/0.4 Ml Syringe) 40 mg SUBCUT Q24H [facility] Last Admin: 02/16/24 19:27 Dose: 40 mg Documented By: SHLOMO Magnesium Hydroxide (Milk Of Magnesia 30 Ml Oral.Susp) 30 ml PO DAILY PRN PRN Reason: Constipation Melatonin (Melatonin 3 Mg Tablet) 6 mg PO BEDTIME PRN PRN Reason: Insomnia Last Admin: 02/20/24 19:34 Dose: 6 mg Documented By: DARIN Miconazole Nitrate (Miconazole Nitrate 2% Powder 85 Gm Bottle) 1 appl TOPICAL BID [facility]; Protocol Last Admin: 02/26/24 21:54 Dose: 1 appl Documented By: KIMO Nicotine Polacrilex (Nicotine Polacrilex 2 Mg Gum) 4 mg BUCCAL Q2H PRN PRN Reason: Nicotine Cravings Ondansetron HCl (Ondansetron Hcl 4 Mg/2 Ml Vial) 4 mg IVPUSH Q8H PRN PRN Reason: Nausea and Vomiting Polyethylene Glycol (Polyethylene Glycol 3350 17 Gm Powd.Pack) 17 gm PO DAILY [facility] Last Admin: 02/26/24 09:47 Dose: 17 gm Documented By: FARAZ Quetiapine Fumarate (Quetiapine Fumarate 25 Mg Tablet) 25 mg PO ONCE PRN PRN Reason: about 45 min before eeg Last Admin: 02/17/24 09:40 Dose: 25 mg Documented By: SHLOMO Risperidone (Risperidone Oral Peg 1 Mg/Ml Solution) 0.5 mg PO BID [facility] Last Admin: 02/26/24 21:36 Dose: 0.5 mg Documented By: KIMO Sodium Chloride (0.9 % Sodium Chloride Flush 3 Ml Syringe) [address] [facility] Last Admin: 02/27/24 00:27 Dose: Not Given Documented By: KIMO Non-Admin Reason: Patient Asleep Trazodone HCl (Trazodone Hcl 25 Mg Halftab) 25 mg PO BEDTIME PRN PRN Reason: Insomnia Last Admin: 02/26/24 21:36 Dose: 25 mg Documented By: KIMO Labs 02/15/24 06:10 02/15/24 06:10 Assessment and Plan (1) Cognitive and behavioral changes: Status: Acute Plan 83M PMH htn, unspecified dementia, admitted to [facility] 02/13/24 for FTT, not taking meds or food, transfered to medicine 02/14/24. Cognitive and behavioral changes, Acute on chronic Neurology appreciated, negative syphilis, Lyme EEG showing general slowing but seizure disorder MRI not consistent with CJD, less likely CSF culture -ve All other CSF studies on hold until we get the CJD result CJD testing pending BELT WEAVER following, adjust diet Hypertension, uncotrolled Transdermal clonidine Start Amlodipine Subacute left distal radius fracture Soft cast Mood disorder Risperidone, trazodone DVT prophylaxis with Lovenox Full Code reason for continued hospitalization: Workup ongoing for altered mental status The patient HCP is his step-daughter Alcides can be reached on [phone] Patient sister name is Dr. Nate Genao and her phone number is [phone] to be contacted for any updates. Quality Stroke Does the patient have a stroke diagnosis?: No VTE Prior VTE?: No VTE Risk Level:: Medical - moderate - high VTE Device Contraindication: Treatment Not Indicated VTE Drug Contraindication: N/A - Med Ordered
--- NOTE | 2024-02-27 10:42 | MHC.SL.SWA ---
Speech Pathologist Impression: Risk of Aspiration Due to: Lethargy Medically Fragile Neurological Condition Poor PO Intake Reduced Cognition Dysphasia Diet Status: Recommend continue on Chopped/Advanced (NDD3) with thin liquids, pills whole in puree. Patient requires intermittent supervision at meals, set up tray, open all items, orient patient to meal. With this assistance, patient is reliably independent with meal. Liquid Consistency and Strategies for Safe Swallow: Liquid Intake Recommendation: Thin Liquid Intake Strategies: Small Sips Solid Food Consistency: Dietary Recommendations: Chopped/Advanced (NDD3) Additional Modifications to Solid Foods: Patient benefits from intermittent supervision at meals to assure his safety, progress and access to food. Oral Medication Intake: Whole with Puree Please contact the pharmacy regarding appropriate crushable or liquid drug formulations that are available whenever modified delivery is recommended. Compensatory Strategies and Precautions to be Taken for Safe Swallow: Sitting Upright (90 deg) Liquids from Straw Small Bites and Sips Alternate Liquids/Solids Supervision While Eating and Drinking for Safe Swallow: Intermittent Supervision Foods to Avoid: Swallowing Recommended Treatments: Compens. Strategy Educat. Recommendation for Speech: Inpatient Speech Therapy Comment: Patient seen this morning at breakfast, which he was independently eating as solar development engineer entered room. Patient was pleasant but confused, thought SENIOR SYSTEMS ANALYST was family member and spoke about things out of context. Patient consumed all food on plate (pancakes and eggs) then ate sliced bananas and drank sips of coffee all independently. Patient evidencing mild confusion at times with items on tray, but otherwise successfully independent with meal. Patient is on appropriate, least restrictive diet at this time and tolerating well with good independence. He still requires assistance with set up of tray, access to all items (intermittent supervision). No further speech services indicated at this time, will d/c speech. Please re-consult if additional concerns arise. Frequency/Duration: Daily Date Range for Service Req: Timeline to reassess: PRN Engineer Of System Development Clinican/Clinical Fellow: No Supervisory Statement: I have reviewed and agree with the student/clinical fellow's documentation: N/A Speech Language Pathologist: Lili Jacobs M.A., [facility]-SENIOR SYSTEMS ANALYST
[2024-02-27] MEDS: risperiDONE Oral Sol 1 MG/ML SOLUTION 0.5 MG PO ×2 (10:45→21:35)
[2024-02-27] MEDS: amLODIPine Besylate 5 MG TABLET PO (10:46)
[2024-02-27] MEDS: polyethylene glycoL 3350 17 GM POWD.PACK PO (10:47)
[2024-02-27] MEDS: 0.9 % Sodium Chloride Flush 3 ML SYRINGE IVFLUSH ×3 (10:47→21:35)
[2024-02-27] MEDS: Melatonin 3 MG TABLET 6 MG PO (21:35)
[2024-02-27] MEDS: Miconazole Nitrate 2% Powder 85 GM Bottle 1 APPL TOPICAL (21:41)
[2024-02-28 08:00] VITALS: BP 140/68; PULSE 63; RESP 18; TEMP 36.4; O2SAT 97
[2024-02-28] MEDS: polyethylene glycoL 3350 17 GM POWD.PACK PO (09:29)
[2024-02-28] MEDS: risperiDONE Oral Sol 1 MG/ML SOLUTION 0.5 MG PO ×2 (09:29→19:14)
[2024-02-28] MEDS: amLODIPine Besylate 5 MG TABLET PO (09:29)
[2024-02-28] MEDS: 0.9 % Sodium Chloride Flush 3 ML SYRINGE IVFLUSH ×3 (09:29→19:15)
[2024-02-28] MEDS: Miconazole Nitrate 2% Powder 85 GM Bottle 1 APPL TOPICAL ×2 (09:30→20:19)
--- NOTE | 2024-02-28 09:57 | HO.PM.IMPN ---
Subjective Subjective Date of Service: 02/28/24 Interval History: seen and evaluated this morning laying comfortable in his bed no other events Review of Systems Review of Systems: Yes all other systems are reviewed and are negative Physical Exam Vital Signs: Vital Signs: Last Vital Signs Temp 97.5 F 02/28/24 08:00 Pulse 63 02/28/24 08:00 Resp 18 02/28/24 08:00 BP 140/68 H 02/28/24 08:00 Pulse Ox 97 02/28/24 08:00 O2 Del Method Room Air 02/28/24 08:00 BMI result Body Mass Index 23.4 Const: Other: Constitutional : Awake, interactive, not in distress Neck : Normal inspection, Supple Cardiovascular : RRR, no JVP, no lower extremity edema Respiratory : good bilateral air entry, Gastrointestinal: soft, lax, Skin : Warm, Dry Neurological : Alert & disoriented to place and time, No focal deficit Objective Data Active Medications Acetaminophen (Acetaminophen 325 Mg Tablet) 650 mg PO Q6H PRN PRN Reason: Pain, Mild (Pain Scale 1-3), fever or headache Al Hydroxide/Mg Hydroxide (Magnesium Hydrox/Alum Hydrox 30 Ml Oral.Susp) 30 ml PO Q6H PRN PRN Reason: Constipation Amlodipine Besylate (Amlodipine Besylate 5 Mg Tablet) 5 mg PO DAILY [facility]; Protocol Last Admin: 02/28/24 09:29 Dose: 5 mg Documented By: SHLOMO Benzonatate (Benzonatate 100 Mg Capsule) 100 mg PO TID PRN PRN Reason: Cough Calcium Carbonate (Calcium Carbonate 750 Mg Tab.Chew) 750 mg PO Q4H PRN PRN Reason: Heartburn Clonidine (Clonidine 0.1 Mg Patch.Tdwk) 0.1 mg TRANSDERMA Tu@0900 [facility]; Protocol Last Admin: 02/25/24 11:18 Dose: 0.1 mg Documented By: ANNA Enoxaparin Sodium (Enoxaparin Sodium 40 Mg/0.4 Ml Syringe) 40 mg SUBCUT Q24H [facility] Last Admin: 02/16/24 19:27 Dose: 40 mg Documented By: SHLOMO Magnesium Hydroxide (Milk Of Magnesia 30 Ml Oral.Susp) 30 ml PO DAILY PRN PRN Reason: Constipation Melatonin (Melatonin 3 Mg Tablet) 6 mg PO BEDTIME PRN PRN Reason: Insomnia Last Admin: 02/27/24 21:35 Dose: 6 mg Documented By: SIMONA Miconazole Nitrate (Miconazole Nitrate 2% Powder 85 Gm Bottle) 1 appl TOPICAL BID [facility]; Protocol Last Admin: 02/28/24 09:30 Dose: 1 appl Documented By: SHLOMO Nicotine Polacrilex (Nicotine Polacrilex 2 Mg Gum) 4 mg BUCCAL Q2H PRN PRN Reason: Nicotine Cravings Ondansetron HCl (Ondansetron Hcl 4 Mg/2 Ml Vial) 4 mg IVPUSH Q8H PRN PRN Reason: Nausea and Vomiting Polyethylene Glycol (Polyethylene Glycol 3350 17 Gm Powd.Pack) 17 gm PO DAILY [facility] Last Admin: 02/28/24 09:29 Dose: 17 gm Documented By: SHLOMO Quetiapine Fumarate (Quetiapine Fumarate 25 Mg Tablet) 25 mg PO ONCE PRN PRN Reason: about 45 min before eeg Last Admin: 02/17/24 09:40 Dose: 25 mg Documented By: SHLOMO Risperidone (Risperidone Oral Peg 1 Mg/Ml Solution) 0.5 mg PO BID [facility] Last Admin: 02/28/24 09:29 Dose: 0.5 mg Documented By: SHLOMO Sodium Chloride (0.9 % Sodium Chloride Flush 3 Ml Syringe) 3 ml IVFLUSH QSHIFT [facility] Last Admin: 02/28/24 09:29 Dose: 3 ml Documented By: SHLOMO Trazodone HCl (Trazodone Hcl 25 Mg Halftab) 25 mg PO BEDTIME PRN PRN Reason: Insomnia Last Admin: 02/26/24 21:36 Dose: 25 mg Documented By: KIMO Labs 02/15/24 06:10 02/15/24 06:10 Labs: Laboratory Results - last 24 hr 02/18/24 13:45 Ref Lab Test Result SEE NOTE Assessment and Plan (1) Cognitive and behavioral changes: Status: Acute Plan 83M PMH htn, unspecified dementia, admitted to [facility] 02/13/24 for FTT, not taking meds or food, transfered to medicine 02/14/24. Cognitive and behavioral changes, Acute on chronic Neurology appreciated, negative syphilis, Lyme EEG showing general slowing but seizure disorder MRI not consistent with CJD, less likely CSF culture -ve All other CSF studies on hold until we get the CJD result CJD negative MILITARY COOK following, adjust diet Follow up neuro Hypertension, uncotrolled Transdermal clonidine Started Amlodipine Subacute left distal radius fracture Soft cast Mood disorder Risperidone, trazodone DVT prophylaxis with Lovenox Full Code reason for continued hospitalization: Workup ongoing for altered mental status The patient HCP is his step-daughter Alcides can be reached on [phone] Patient sister name is Dr. Naet Genao and her phone number is [phone] to be contacted for any updates. Quality Stroke Does the patient have a stroke diagnosis?: No VTE Prior VTE?: No VTE Risk Level:: Medical - moderate - high VTE Device Contraindication: Treatment Not Indicated VTE Drug Contraindication: N/A - Med Ordered
--- NOTE | 2024-02-28 10:11 | MHC.CLN ---
F/U PT IS MODERATELY MALNOURISHED PO INTAKE 50-100% DIET RX: CHOPPED-APPROPRIATE LIVESTOCK FARMER FOLLOWING PT RECEIVING MAGIC CUP TID TO INCREASE KCALS SUPPLEMENT PROVIDES 870KCALS, 27G PROTEIN CONTINUE TO MONITOR PO INTAKE AND ENCOURAGE SUPPLEMENTS WEEKLY WEIGHTS R/T MALNUTRITION
[2024-02-28 15:46] VITALS: BP 144/68; PULSE 72; RESP 18; TEMP 36.9; O2SAT 95
[2024-02-28] MEDS: Melatonin 3 MG TABLET 6 MG PO (19:14)
[2024-02-28] MEDS: traZODone HCL 25 MG HALFTAB PO (19:14)
[2024-02-28 19:18] VITALS: BP 164/78; PULSE 95; RESP 18; TEMP 36.7; O2SAT 96
[2024-02-29] VITALS (9 sets, daily range): BP systolic 102–160; BP diastolic 58–81; PULSE 62–105; RESP 15–20; TEMP 36.1–36.8; O2SAT 95–99
[2024-02-29] MEDS: Miconazole Nitrate 2% Powder 85 GM Bottle 1 APPL TOPICAL ×2 (07:19→19:49)
[2024-02-29] MEDS: 0.9 % Sodium Chloride Flush 3 ML SYRINGE IVFLUSH ×3 (07:19→19:48)
[2024-02-29] MEDS: risperiDONE Oral Sol 1 MG/ML SOLUTION 0.5 MG PO ×2 (07:19→19:47)
[2024-02-29] MEDS: amLODIPine Besylate 5 MG TABLET PO (07:19)
[2024-02-29] MEDS: polyethylene glycoL 3350 17 GM POWD.PACK PO (07:19)
--- NOTE | 2024-02-29 10:57 | HO.PM.IMPN ---
Subjective Subjective Date of Service: 02/29/24 Interval History: seen and evaluated this morning laying comfortable in his bed no other events Review of Systems Review of Systems: Yes all other systems are reviewed and are negative Physical Exam Vital Signs: Vital Signs: Last Vital Signs Temp 98.0 F 02/29/24 07:09 Pulse 62 02/29/24 07:09 Resp 16 02/29/24 07:09 BP 141/72 H 02/29/24 07:09 Pulse Ox 98 02/29/24 07:09 O2 Del Method Room Air 02/29/24 07:09 BMI result Body Mass Index 23.4 Const: Other: Constitutional : Awake, interactive, not in distress Neck : Normal inspection, Supple Cardiovascular : RRR, no JVP, no lower extremity edema Respiratory : good bilateral air entry, Gastrointestinal: soft, lax, Skin : Warm, Dry Neurological : Alert & disoriented to place and time, No focal deficit Objective Data Active Medications Acetaminophen (Acetaminophen 325 Mg Tablet) 650 mg PO Q6H PRN PRN Reason: Pain, Mild (Pain Scale 1-3), fever or headache Al Hydroxide/Mg Hydroxide (Magnesium Hydrox/Alum Hydrox 30 Ml Oral.Susp) 30 ml PO Q6H PRN PRN Reason: Constipation Amlodipine Besylate (Amlodipine Besylate 5 Mg Tablet) 5 mg PO DAILY [facility]; Protocol Last Admin: 02/29/24 07:19 Dose: 5 mg Documented By: SHLOMO Benzonatate (Benzonatate 100 Mg Capsule) 100 mg PO TID PRN PRN Reason: Cough Calcium Carbonate (Calcium Carbonate 750 Mg Tab.Chew) 750 mg PO Q4H PRN PRN Reason: Heartburn Clonidine (Clonidine 0.1 Mg Patch.Tdwk) 0.1 mg TRANSDERMA Tu@0900 [facility]; Protocol Last Admin: 02/25/24 11:18 Dose: 0.1 mg Documented By: ANNA Enoxaparin Sodium (Enoxaparin Sodium 40 Mg/0.4 Ml Syringe) 40 mg SUBCUT Q24H [facility] Last Admin: 02/16/24 19:27 Dose: 40 mg Documented By: SHLOMO Magnesium Hydroxide (Milk Of Magnesia 30 Ml Oral.Susp) 30 ml PO DAILY PRN PRN Reason: Constipation Melatonin (Melatonin 3 Mg Tablet) 6 mg PO BEDTIME PRN PRN Reason: Insomnia Last Admin: 02/28/24 19:14 Dose: 6 mg Documented By: SIMONA Miconazole Nitrate (Miconazole Nitrate 2% Powder 85 Gm Bottle) 1 appl TOPICAL BID [facility]; Protocol Last Admin: 02/29/24 07:19 Dose: 1 appl Documented By: SHLOMO Nicotine Polacrilex (Nicotine Polacrilex 2 Mg Gum) 4 mg BUCCAL Q2H PRN PRN Reason: Nicotine Cravings Ondansetron HCl (Ondansetron Hcl 4 Mg/2 Ml Vial) 4 mg IVPUSH Q8H PRN PRN Reason: Nausea and Vomiting Polyethylene Glycol (Polyethylene Glycol 3350 17 Gm Powd.Pack) 17 gm PO DAILY [facility] Last Admin: 02/29/24 07:19 Dose: 17 gm Documented By: SHLOMO Quetiapine Fumarate (Quetiapine Fumarate 25 Mg Tablet) 25 mg PO ONCE PRN PRN Reason: about 45 min before eeg Last Admin: 02/17/24 09:40 Dose: 25 mg Documented By: SHLOMO Risperidone (Risperidone Oral Peg 1 Mg/Ml Solution) 0.5 mg PO BID [facility] Last Admin: 02/29/24 07:19 Dose: 0.5 mg Documented By: SHLOMO Sodium Chloride (0.9 % Sodium Chloride Flush 3 Ml Syringe) 3 ml IVFLUSH QSHIFT [facility] Last Admin: 02/29/24 07:19 Dose: 3 ml Documented By: SHLOMO Trazodone HCl (Trazodone Hcl 25 Mg Halftab) 25 mg PO BEDTIME PRN PRN Reason: Insomnia Last Admin: 02/28/24 19:14 Dose: 25 mg Documented By: SIMONA Labs 02/15/24 06:10 02/15/24 06:10 Assessment and Plan (1) Cognitive and behavioral changes: Status: Acute Plan 83M PMH htn, unspecified dementia, admitted to [facility] 02/13/24 for FTT, not taking meds or food, transfered to medicine 02/14/24. Cognitive and behavioral changes, Acute on chronic Neurology appreciated, negative syphilis, Lyme EEG showing general slowing but seizure disorder MRI not consistent with CJD CSF culture -ve CJD negative SENIOR JAVA J2EE DEVELOPER following, adjust diet Likely unspecified neurodegenerative condition Hypertension, uncotrolled Transdermal clonidine Started Amlodipine Subacute left distal radius fracture Soft cast Mood disorder Risperidone, trazodone DVT prophylaxis with Lovenox Full Code reason for continued hospitalization: Safe dispo The patient HCP is his step-daughter Alcides can be reached on [phone] Patient sister name is Dr. Nate Genao and her phone number is [phone] to be contacted for any updates. Quality Stroke Does the patient have a stroke diagnosis?: No VTE Prior VTE?: No VTE Risk Level:: Medical - moderate - high VTE Device Contraindication: Treatment Not Indicated VTE Drug Contraindication: N/A - Med Ordered
[2024-02-29] MEDS: Melatonin 3 MG TABLET 6 MG PO (19:47)
[2024-03-01] VITALS: BP 142/72; PULSE 72; RESP 18; TEMP 36.6; O2SAT 96
[2024-03-01 04:00] VITALS: BP 159/77; PULSE 71; RESP 20; TEMP 36.6; O2SAT 97
[2024-03-01 07:50] VITALS: BP 137/69; PULSE 67; RESP 19; TEMP 36.3; O2SAT 99
[2024-03-01] MEDS: 0.9 % Sodium Chloride Flush 3 ML SYRINGE IVFLUSH ×3 (08:52→22:26)
[2024-03-01] MEDS: polyethylene glycoL 3350 17 GM POWD.PACK PO (08:52)
[2024-03-01] MEDS: amLODIPine Besylate 5 MG TABLET PO (08:52)
[2024-03-01] MEDS: risperiDONE Oral Sol 1 MG/ML SOLUTION 0.5 MG PO ×2 (08:52→22:25)
--- NOTE | 2024-03-01 10:18 | HO.PM.IMPN ---
Subjective Subjective Date of Service: 03/01/24 Interval History: seen and evaluated this morning laying comfortable in his bed no other events Review of Systems Review of Systems: Yes all other systems are reviewed and are negative Physical Exam Vital Signs: Vital Signs: Last Vital Signs Temp 97.4 F 03/01/24 07:50 Pulse 67 03/01/24 07:50 Resp 19 03/01/24 07:50 BP 137/69 03/01/24 07:50 Pulse Ox 99 03/01/24 07:50 O2 Del Method Room Air 03/01/24 07:50 O2 Flow Rate 2 02/29/24 19:21 BMI result Body Mass Index 23.4 Const: Other: Constitutional : Awake, interactive, not in distress Neck : Normal inspection, Supple Cardiovascular : RRR, no JVP, no lower extremity edema Respiratory : good bilateral air entry, Gastrointestinal: soft, lax, Skin : Warm, Dry Neurological : Alert & disoriented to place and time, No focal deficit Objective Data Active Medications Acetaminophen (Acetaminophen 325 Mg Tablet) 650 mg PO Q6H PRN PRN Reason: Pain, Mild (Pain Scale 1-3), fever or headache Al Hydroxide/Mg Hydroxide (Magnesium Hydrox/Alum Hydrox 30 Ml Oral.Susp) 30 ml PO Q6H PRN PRN Reason: Constipation Amlodipine Besylate (Amlodipine Besylate 5 Mg Tablet) 5 mg PO DAILY [facility]; Protocol Last Admin: 03/01/24 08:52 Dose: 5 mg Documented By: DOBROB Benzonatate (Benzonatate 100 Mg Capsule) 100 mg PO TID PRN PRN Reason: Cough Calcium Carbonate (Calcium Carbonate 750 Mg Tab.Chew) 750 mg PO Q4H PRN PRN Reason: Heartburn Clonidine (Clonidine 0.1 Mg Patch.Tdwk) 0.1 mg TRANSDERMA Tu@0900 [facility]; Protocol Last Admin: 02/25/24 11:18 Dose: 0.1 mg Documented By: ANNA Enoxaparin Sodium (Enoxaparin Sodium 40 Mg/0.4 Ml Syringe) 40 mg SUBCUT Q24H [facility] Last Admin: 02/16/24 19:27 Dose: 40 mg Documented By: SHLOMO Magnesium Hydroxide (Milk Of Magnesia 30 Ml Oral.Susp) 30 ml PO DAILY PRN PRN Reason: Constipation Melatonin (Melatonin 3 Mg Tablet) 6 mg PO BEDTIME PRN PRN Reason: Insomnia Last Admin: 02/29/24 19:47 Dose: 6 mg Documented By: SIMONA Miconazole Nitrate (Miconazole Nitrate 2% Powder 85 Gm Bottle) 1 appl TOPICAL BID [facility]; Protocol Last Admin: 03/01/24 08:53 Dose: Not Given Documented By: BAHMAN Non-Admin Reason: Previously Administered Nicotine Polacrilex (Nicotine Polacrilex 2 Mg Gum) 4 mg BUCCAL Q2H PRN PRN Reason: Nicotine Cravings Ondansetron HCl (Ondansetron Hcl 4 Mg/2 Ml Vial) 4 mg IVPUSH Q8H PRN PRN Reason: Nausea and Vomiting Polyethylene Glycol (Polyethylene Glycol 3350 17 Gm Powd.Pack) 17 gm PO DAILY [facility] Last Admin: 03/01/24 08:52 Dose: 17 gm Documented By: BAHMAN Quetiapine Fumarate (Quetiapine Fumarate 25 Mg Tablet) 25 mg PO ONCE PRN PRN Reason: about 45 min before eeg Last Admin: 02/17/24 09:40 Dose: 25 mg Documented By: SHLOMO Risperidone (Risperidone Oral Peg 1 Mg/Ml Solution) 0.5 mg PO BID [facility] Last Admin: 03/01/24 08:52 Dose: 0.5 mg Documented By: BAHMAN Sodium Chloride (0.9 % Sodium Chloride Flush 3 Ml Syringe) [facility] Last Admin: 03/01/24 08:52 Dose: 3 ml Documented By: BAHMAN Trazodone HCl (Trazodone Hcl 25 Mg Halftab) 25 mg PO BEDTIME PRN PRN Reason: Insomnia Last Admin: 02/28/24 19:14 Dose: 25 mg Documented By: SIMONA Labs 02/15/24 06:10 02/15/24 06:10 Assessment and Plan (1) Cognitive and behavioral changes: Status: Acute Plan 83M PMH htn, unspecified dementia, admitted to [facility] 02/13/24 for FTT, not taking meds or food, transfered to medicine 02/14/24. Cognitive and behavioral changes, Acute on chronic Neurology appreciated, negative syphilis, Lyme EEG showing general slowing but seizure disorder MRI not consistent with CJD CSF culture -ve CJD negative ADMITTING COORDINATOR following, adjust diet Likely unspecified neurodegenerative condition Hypertension, uncotrolled Transdermal clonidine Started Amlodipine Subacute left distal radius fracture Soft cast Mood disorder Risperidone, trazodone DVT prophylaxis with Lovenox Full Code reason for continued hospitalization: Safe dispo The patient HCP is his step-daughter Alcides can be reached on [phone] Patient sister name is Dr. Nate Genao and her phone number is [phone] to be contacted for any updates. Quality Stroke Does the patient have a stroke diagnosis?: No VTE Prior VTE?: No VTE Risk Level:: Medical - moderate - high VTE Device Contraindication: Treatment Not Indicated VTE Drug Contraindication: N/A - Med Ordered
[2024-03-01 15:50] VITALS: BP 144/80; PULSE 90; RESP 18; TEMP 36.7; O2SAT 97
[2024-03-01] MEDS: NeoMY/Polymyx/Dexameth Oph Sus 5 ML BOTTLE 1 DROP EYE-BOTH ×2 (17:58→22:25)
[2024-03-01 19:44] VITALS: BP 178/84; PULSE 98; RESP 18; TEMP 36.9; O2SAT 96
[2024-03-01] MEDS: Miconazole Nitrate 2% Powder 85 GM Bottle 1 APPL TOPICAL (22:29)
[2024-03-01 23:45] VITALS: BP 148/72; PULSE 83; RESP 18; TEMP 36.5; O2SAT 97
[2024-03-02 04:43] VITALS: BP 157/79; PULSE 72; RESP 16; TEMP 36.3; O2SAT 97
[2024-03-02 07:21] VITALS: BP 146/70; PULSE 90; RESP 18; TEMP 36.5; O2SAT 96
[2024-03-02] MEDS: 0.9 % Sodium Chloride Flush 3 ML SYRINGE IVFLUSH ×3 (09:01→20:10)
[2024-03-02] MEDS: amLODIPine Besylate 5 MG TABLET PO (09:01)
[2024-03-02] MEDS: risperiDONE Oral Sol 1 MG/ML SOLUTION 0.5 MG PO ×2 (09:01→20:06)
[2024-03-02] MEDS: NeoMY/Polymyx/Dexameth Oph Sus 5 ML BOTTLE 1 DROP EYE-BOTH ×4 (09:08→20:06)
[2024-03-02] MEDS: Miconazole Nitrate 2% Powder 85 GM Bottle 1 APPL TOPICAL ×2 (09:10→20:06)
[2024-03-02] MEDS: polyethylene glycoL 3350 17 GM POWD.PACK PO (09:10)
--- NOTE | 2024-03-02 09:51 | P.PNIM_ITS ---
Subjective Subjective Date of Service: 03/02/24 Interval History: seen and evaluated this morning laying comfortable in his bed no other events Review of Systems Review of Systems: Yes all other systems are reviewed and are negative Physical Exam 2 Vital Signs: Vital Signs: Last Vital Signs Temp 97.7 F 03/02/24 07:21 Pulse 90 03/02/24 07:21 Resp 18 03/02/24 07:21 BP 146/70 H 03/02/24 07:21 Pulse Ox 96 03/02/24 07:21 O2 Del Method Room Air 03/02/24 07:21 O2 Flow Rate 2 02/29/24 19:21 BMI result Body Mass Index 23.4 Const: Other: Constitutional : Awake, interactive, not in distress Neck : Normal inspection, Supple Cardiovascular : RRR, no JVP, no lower extremity edema Respiratory : good bilateral air entry, Gastrointestinal: soft, lax, Skin : Warm, Dry Neurological : Alert & disoriented to place and time, No focal deficit Objective Data Active Medications Acetaminophen (Acetaminophen 325 Mg Tablet) 650 mg PO Q6H PRN PRN Reason: Pain, Mild (Pain Scale 1-3), fever or headache Al Hydroxide/Mg Hydroxide (Magnesium Hydrox/Alum Hydrox 30 Ml Oral.Susp) 30 ml PO Q6H PRN PRN Reason: Constipation Amlodipine Besylate (Amlodipine Besylate 5 Mg Tablet) 5 mg PO DAILY [facility]; Protocol Last Admin: 03/02/24 09:01 Dose: 5 mg Documented By: SEN Benzonatate (Benzonatate 100 Mg Capsule) 100 mg PO TID PRN PRN Reason: Cough Calcium Carbonate (Calcium Carbonate 750 Mg Tab.Chew) 750 mg PO Q4H PRN PRN Reason: Heartburn Clonidine (Clonidine 0.1 Mg Patch.Tdwk) 0.1 mg TRANSDERMA Tu@0900 [facility]; Protocol Last Admin: 02/25/24 11:18 Dose: 0.1 mg Documented By: ANNA Enoxaparin Sodium (Enoxaparin Sodium 40 Mg/0.4 Ml Syringe) 40 mg SUBCUT Q24H [facility] Last Admin: 02/16/24 19:27 Dose: 40 mg Documented By: SHLOMO Magnesium Hydroxide (Milk Of Magnesia 30 Ml Oral.Susp) 30 ml PO DAILY PRN PRN Reason: Constipation Melatonin (Melatonin 3 Mg Tablet) 6 mg PO BEDTIME PRN PRN Reason: Insomnia Last Admin: 02/29/24 19:47 Dose: 6 mg Documented By: SIMONA Miconazole Nitrate (Miconazole Nitrate 2% Powder 85 Gm Bottle) 1 appl TOPICAL BID [facility]; Protocol Last Admin: 03/01/24 22:29 Dose: 1 appl Documented By: CHRIS Neomycin/Polymyxin/Dexamethasone (Neomy/Polymyx/Dexameth Oph Alda 5 Ml Bottle) 1 drop EYE-BOTH QID [facility] Last Admin: 03/02/24 09:08 Dose: 1 drop Documented By: SEN Nicotine Polacrilex (Nicotine Polacrilex 2 Mg Gum) 4 mg BUCCAL Q2H PRN PRN Reason: Nicotine Cravings Ondansetron HCl (Ondansetron Hcl 4 Mg/2 Ml Vial) 4 mg IVPUSH Q8H PRN PRN Reason: Nausea and Vomiting Polyethylene Glycol (Polyethylene Glycol 3350 17 Gm Powd.Pack) 17 gm PO DAILY [facility] Last Admin: 03/01/24 08:52 Dose: 17 gm Documented By: BAHMAN Quetiapine Fumarate (Quetiapine Fumarate 25 Mg Tablet) 25 mg PO ONCE PRN PRN Reason: about 45 min before eeg Last Admin: 02/17/24 09:40 Dose: 25 mg Documented By: SHLOMO Risperidone (Risperidone Oral Peg 1 Mg/Ml Solution) 0.5 mg PO BID [facility] Last Admin: 03/02/24 09:01 Dose: 0.5 mg Documented By: SEN Sodium Chloride (0.9 % Sodium Chloride Flush 3 Ml Syringe) 3 ml IVFLUSH QSHIFT [facility] Last Admin: 03/02/24 09:01 Dose: 3 ml Documented By: ESN Trazodone HCl (Trazodone Hcl 25 Mg Halftab) 25 mg PO BEDTIME PRN PRN Reason: Insomnia Last Admin: 02/28/24 19:14 Dose: 25 mg Documented By: SIMONA Labs 02/15/24 06:10 02/15/24 06:10 Assessment and Plan (1) Cognitive and behavioral changes: Status: Acute Plan 83M PMH htn, unspecified dementia, admitted to [facility] 02/13/24 for FTT, not taking meds or food, transfered to medicine 02/14/24. Cognitive and behavioral changes, Acute on chronic Neurology appreciated, negative syphilis, Lyme EEG showing general slowing but seizure disorder MRI not consistent with CJD CSF culture -ve CJD negative YARN EXAMINER SKEINS following, adjust diet Likely unspecified neurodegenerative condition conjunctivitis continue day 2 polymixin/neomycin Hypertension, uncotrolled Transdermal clonidine Started Amlodipine Subacute left distal radius fracture Soft cast Mood disorder Risperidone, trazodone DVT prophylaxis with Lovenox Full Code reason for continued hospitalization: Safe dispo The patient HCP is his step-daughter Alcides can be reached on [phone] Patient sister name is Dr. Nate Genao and her phone number is [phone] to be contacted for any updates. Quality Stroke Does the patient have a stroke diagnosis?: No VTE Prior VTE?: No VTE Risk Level:: Medical - moderate - high VTE Device Contraindication: Treatment Not Indicated VTE Drug Contraindication: N/A - Med Ordered
--- NOTE | 2024-03-02 10:15 | MHC.CLN ---
F/U PT IS MODERATELY MALNOURISHED PO INTAKE 50-75% DIET RX: CHOPPED-APPROPRIATE PT RECEIVING MAGIC CUP TID TO INCREASE KCALS SUPPLEMENT PROVIDES 870KCALS, 27G PROTEIN WITH 100% ACCEPTANCE CONTINUE TO MONITOR PO INTAKE AND ENCOURAGE SUPPLEMENTS WITH WEEKLY WEIGHTS R/T MALNUTRITION
--- NOTE | 2024-03-02 13:04 | P.CDIM_ITS ---
PROVIDER RESPONSE TEXT: To clarify, the appropriate diagnosis supported by the clinical indicators: No, Seizure is a not a valid diagnosis for this patient QUERY TEXT: PHYSICIAN'S DOCUMENTATION REQUEST Date of Query: 03/02/2024 12:54 PM EST Patient Name: Pernell Yung Admit Date: 02/14/2024 Dear Paul Jones MD, A review of the medical record indicates additional documentation may be needed. Please review below and update the documentation accordingly. A diagnosis of Seizure Disorder was included in the Hospitalist Progress Note 03/02/24. Additional clinical indicators in the record include: EEG 02/17/24: IMPRESSION: Generalized slowing with suggestion of underlying encephalopathy of unknown etiology. No focal activity noted. Please indicate if you are in agreement that the above diagnosis is valid for this patient: Yes, Seizure Disorder is a valid diagnosis for this patient No, Seizure is a not a valid diagnosis for this patient Other (explain) Clinically unable to determine (explain) Thank you, Dariana Neff RN Use of terms such as suspected, likely, concern for, or probable (associated with a specific diagnosi s that is being evaluated, monitored, or treated as if it exists) are acceptable and can be coded in the inpatient se tting, when documented at the time of discharge. Please use your independent medical judgment in providing your response. THIS QUERY IS PART OF THE PERMANENT MEDICAL RECORD
[2024-03-02 13:29] VITALS: BMI 23.8
--- NOTE | 2024-03-02 13:39 | MHC.CM.PN ---
EMR reviewed and per MD rounds, pt is unable to discharge as he will need a conservatorship first.
[2024-03-02 15:33] VITALS: BP 165/77; PULSE 86; RESP 21; TEMP 36.5; O2SAT 96
[2024-03-02] MEDS: ondansetron HCL 4 MG/2 ML VIAL IVPUSH (18:44)
[2024-03-02 20:00] VITALS: BP 178/80; PULSE 96; RESP 20; TEMP 36.5; O2SAT 96
[2024-03-02] MEDS: traZODone HCL 25 MG HALFTAB PO (23:49)
[2024-03-03 00:49] VITALS: RESP 18
[2024-03-03 07:52] VITALS: BP 155/68; PULSE 77; RESP 18; TEMP 36.8; O2SAT 97
--- NOTE | 2024-03-03 09:09 | P.PNIM_ITS ---
Subjective Subjective Date of Service: 03/03/24 Interval History: seen and evaluated this morning laying comfortable in his bed no other events Review of Systems Review of Systems: Yes all other systems are reviewed and are negative Physical Exam 2 Vital Signs: Vital Signs: Last Vital Signs Temp 98.2 F 03/03/24 07:52 Pulse 77 03/03/24 07:52 Resp 18 03/03/24 07:52 BP 155/68 H 03/03/24 07:52 Pulse Ox 97 03/03/24 07:52 O2 Del Method Room Air 03/03/24 07:52 O2 Flow Rate 2 02/29/24 19:21 BMI result Body Mass Index 23.8 Const: Other: Constitutional : Awake, interactive, not in distress Neck : Normal inspection, Supple Cardiovascular : RRR, no JVP, no lower extremity edema Respiratory : good bilateral air entry, Gastrointestinal: soft, lax, Skin : Warm, Dry Neurological : Alert & disoriented to place and time, No focal deficit Objective Data Active Medications Acetaminophen (Acetaminophen 325 Mg Tablet) 650 mg PO Q6H PRN PRN Reason: Pain, Mild (Pain Scale 1-3), fever or headache Al Hydroxide/Mg Hydroxide (Magnesium Hydrox/Alum Hydrox 30 Ml Oral.Susp) 30 ml PO Q6H PRN PRN Reason: Constipation Amlodipine Besylate (Amlodipine Besylate 5 Mg Tablet) 5 mg PO DAILY [facility]; Protocol Last Admin: 03/02/24 09:01 Dose: 5 mg Documented By: SEN Benzonatate (Benzonatate 100 Mg Capsule) 100 mg PO TID PRN PRN Reason: Cough Calcium Carbonate (Calcium Carbonate 750 Mg Tab.Chew) 750 mg PO Q4H PRN PRN Reason: Heartburn Clonidine (Clonidine 0.1 Mg Patch.Tdwk) 0.1 mg TRANSDERMA Tu@0900 [facility]; Protocol Last Admin: 02/25/24 11:18 Dose: 0.1 mg Documented By: ANNA Enoxaparin Sodium (Enoxaparin Sodium 40 Mg/0.4 Ml Syringe) 40 mg SUBCUT Q24H [facility] Last Admin: 02/16/24 19:27 Dose: 40 mg Documented By: SHLOMO Magnesium Hydroxide (Milk Of Magnesia 30 Ml Oral.Susp) 30 ml PO DAILY PRN PRN Reason: Constipation Melatonin (Melatonin 3 Mg Tablet) 6 mg PO BEDTIME PRN PRN Reason: Insomnia Last Admin: 02/29/24 19:47 Dose: 6 mg Documented By: SIMONA Miconazole Nitrate (Miconazole Nitrate 2% Powder 85 Gm Bottle) 1 appl TOPICAL BID [facility]; Protocol Last Admin: 03/02/24 20:06 Dose: 1 appl Documented By: CHRIS Neomycin/Polymyxin/Dexamethasone (Neomy/Polymyx/Dexameth Oph Alda 5 Ml Bottle) 1 drop EYE-BOTH QID [facility] Last Admin: 03/02/24 20:06 Dose: 1 drop Documented By: CHRIS Nicotine Polacrilex (Nicotine Polacrilex 2 Mg Gum) 4 mg BUCCAL Q2H PRN PRN Reason: Nicotine Cravings Ondansetron HCl (Ondansetron Hcl 4 Mg/2 Ml Vial) 4 mg IVPUSH Q8H PRN PRN Reason: Nausea and Vomiting Last Admin: 03/02/24 18:44 Dose: 4 mg Documented By: SEN Polyethylene Glycol (Polyethylene Glycol 3350 17 Gm Powd.Pack) 17 gm PO DAILY [facility] Last Admin: 03/02/24 09:10 Dose: 17 gm Documented By: SEN Quetiapine Fumarate (Quetiapine Fumarate 25 Mg Tablet) 25 mg PO ONCE PRN PRN Reason: about 45 min before eeg Last Admin: 02/17/24 09:40 Dose: 25 mg Documented By: SHLOMO Risperidone (Risperidone Oral Peg 1 Mg/Ml Solution) 0.5 mg PO BID [facility] Last Admin: 03/02/24 20:06 Dose: 0.5 mg Documented By: CHRIS Sodium Chloride (0.9 % Sodium Chloride Flush 3 Ml Syringe) 3 ml IVFLUSH QSHIFT [facility] Last Admin: 03/02/24 20:10 Dose: 3 ml Documented By: CHRIS Trazodone HCl (Trazodone Hcl 25 Mg Halftab) 25 mg PO BEDTIME PRN PRN Reason: Insomnia Last Admin: 03/02/24 23:49 Dose: 25 mg Documented By: CHRIS Comments: Pt reports unable to sleep Labs 02/15/24 06:10 02/15/24 06:10 Assessment and Plan (1) Cognitive and behavioral changes: Status: Acute Plan 83M PMH htn, unspecified dementia, admitted to [facility] 02/13/24 for FTT, not taking meds or food, transfered to medicine 02/14/24. 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 Nate Genao and her phone number is [phone] to be contacted for any updates. Quality Stroke Does the patient have a stroke diagnosis?: No VTE Prior VTE?: No VTE Risk Level:: Medical - moderate - high VTE Device Contraindication: Treatment Not Indicated VTE Drug Contraindication: N/A - Med Ordered
[2024-03-03] MEDS: polyethylene glycoL 3350 17 GM POWD.PACK PO (09:34)
[2024-03-03] MEDS: amLODIPine Besylate 5 MG TABLET PO (09:34)
[2024-03-03] MEDS: risperiDONE Oral Sol 1 MG/ML SOLUTION 0.5 MG PO ×2 (09:34→20:24)
[2024-03-03] MEDS: NeoMY/Polymyx/Dexameth Oph Sus 5 ML BOTTLE 1 DROP EYE-BOTH ×3 (09:34→20:24)
[2024-03-03 09:35] VITALS: BP 155/72
[2024-03-03] MEDS: Miconazole Nitrate 2% Powder 85 GM Bottle 1 APPL TOPICAL ×2 (09:35→20:25)
[2024-03-03] MEDS: 0.9 % Sodium Chloride Flush 3 ML SYRINGE IVFLUSH (09:42)
[2024-03-03] MEDS: cloNIDine 0.1 MG PATCH.TDWK TRANSDERMA (10:32)
--- NOTE | 2024-03-03 11:46 | MHC.CARE ---
T/W met with Pt secondary to a CARE team consult being placed. Due to Pt's presentation it is not in my clinical opinion that Pt will benefit from returning to the [facility]. Pt's disposition is case management to find a facility that Pt can be placed at which can accomidate his needs. Dr. Jones is in agreement with this disposition. Pt is not on a Section 12a and Dr. Jones stated it was not necessary at this time.
--- NOTE | 2024-03-03 12:47 | MHC.CM.PN ---
Patient has been cleared by the Care Team. Patient will need a Conservator and then LTC placement. CM/Management is aware and CM will follow.
--- NOTE | 2024-03-03 15:22 | PC.NURSE ---
Per MD no need to have IV on this patient at this time
[2024-03-03 15:39] VITALS: BP 144/68; PULSE 80; RESP 14; TEMP 36.8; O2SAT 95
[2024-03-03 20:00] VITALS: BP 166/86; PULSE 84; RESP 21; TEMP 36.2; O2SAT 98
[2024-03-04 04:00] VITALS: BP 146/74; PULSE 69; RESP 16; TEMP 36.4; O2SAT 94
[2024-03-04 07:17] VITALS: BP 147/78; PULSE 73; RESP 20; TEMP 36.2; O2SAT 97
[2024-03-04] MEDS: risperiDONE Oral Sol 1 MG/ML SOLUTION 0.5 MG PO ×2 (09:47→21:35)
[2024-03-04 09:48] VITALS: BP 138/67
[2024-03-04] MEDS: amLODIPine Besylate 5 MG TABLET PO (09:48)
[2024-03-04] MEDS: polyethylene glycoL 3350 17 GM POWD.PACK PO (09:50)
[2024-03-04] MEDS: NeoMY/Polymyx/Dexameth Oph Sus 5 ML BOTTLE 1 DROP EYE-BOTH ×4 (09:53→21:35)
[2024-03-04] MEDS: Miconazole Nitrate 2% Powder 85 GM Bottle 1 APPL TOPICAL ×2 (09:53→21:47)
--- NOTE | 2024-03-04 09:59 | MHC.CLN ---
F/U PT IS MODERATELY MALNOURISHED PO INTAKE 75% WT STABLE AND WITHIN UBW RANGE DIET RX: CHOPPED-APPROPRIATE PT RECEIVING MAGIC CUP TID TO INCREASE KCALS SUPPLEMENT PROVIDES 870KCALS, 27G PROTEIN WITH 100% ACCEPTANCE CONTINUE TO MONITOR PO INTAKE AND ENCOURAGE SUPPLEMENTS WITH WEEKLY WEIGHTS R/T MALNUTRITION
--- NOTE | 2024-03-04 11:11 | MHC.CM.PN ---
Per CM/Director, all paperwork for Conservatorship has been sent to the Attorneys. Patient will need LTC (not necessarily a locked unit). CM will follow.
--- NOTE | 2024-03-04 13:37 | HO.PM.IMPN ---
Subjective Subjective Date of Service: 03/04/24 Interval History: seen and evaluated this morning laying comfortable in his bed no other events Review of Systems Review of Systems: Yes all other systems are reviewed and are negative Physical Exam Vital Signs: Vital Signs: Last Vital Signs Temp 97.1 F 03/04/24 07:17 Pulse 73 03/04/24 07:17 Resp 20 03/04/24 07:17 BP 138/67 03/04/24 09:48 Pulse Ox 97 03/04/24 07:17 O2 Del Method Room Air 03/04/24 07:17 O2 Flow Rate 2 02/29/24 19:21 BMI result Body Mass Index 23.8 Const: Other: Constitutional : Awake, interactive, not in distress Neck : Normal inspection, Supple Cardiovascular : RRR, no JVP, no lower extremity edema Respiratory : good bilateral air entry, Gastrointestinal: soft, lax, Skin : Warm, Dry Neurological : Alert & disoriented to place and time, No focal deficit Objective Data Active Medications Acetaminophen (Acetaminophen 325 Mg Tablet) 650 mg PO Q6H PRN PRN Reason: Pain, Mild (Pain Scale 1-3), fever or headache Al Hydroxide/Mg Hydroxide (Magnesium Hydrox/Alum Hydrox 30 Ml Oral.Susp) 30 ml PO Q6H PRN PRN Reason: Constipation Amlodipine Besylate (Amlodipine Besylate 5 Mg Tablet) 5 mg PO DAILY [facility]; Protocol Last Admin: 03/04/24 09:48 Dose: 5 mg Documented By: SEAMUS Benzonatate (Benzonatate 100 Mg Capsule) 100 mg PO TID PRN PRN Reason: Cough Calcium Carbonate (Calcium Carbonate 750 Mg Tab.Chew) 750 mg PO Q4H PRN PRN Reason: Heartburn Clonidine (Clonidine 0.1 Mg Patch.Tdwk) 0.1 mg TRANSDERMA Tu@0900 [facility]; Protocol Last Admin: 03/03/24 10:32 Dose: 0.1 mg Documented By: PITA Enoxaparin Sodium (Enoxaparin Sodium 40 Mg/0.4 Ml Syringe) 40 mg SUBCUT Q24H [facility] Last Admin: 02/16/24 19:27 Dose: 40 mg Documented By: SHLOMO Magnesium Hydroxide (Milk Of Magnesia 30 Ml Oral.Susp) 30 ml PO DAILY PRN PRN Reason: Constipation Melatonin (Melatonin 3 Mg Tablet) 6 mg PO BEDTIME PRN PRN Reason: Insomnia Last Admin: 02/29/24 19:47 Dose: 6 mg Documented By: SIMONA Miconazole Nitrate (Miconazole Nitrate 2% Powder 85 Gm Bottle) 1 appl TOPICAL BID [facility]; Protocol Last Admin: 03/04/24 09:53 Dose: 1 appl Documented By: SEAMUS Neomycin/Polymyxin/Dexamethasone (Neomy/Polymyx/Dexameth Oph Alda 5 Ml Bottle) 1 drop EYE-BOTH QID [facility] Last Admin: 03/04/24 09:53 Dose: 1 drop Documented By: SEAMUS Nicotine Polacrilex (Nicotine Polacrilex 2 Mg Gum) 4 mg BUCCAL Q2H PRN PRN Reason: Nicotine Cravings Ondansetron HCl (Ondansetron Hcl 4 Mg/2 Ml Vial) 4 mg IVPUSH Q8H PRN PRN Reason: Nausea and Vomiting Last Admin: 03/02/24 18:44 Dose: 4 mg Documented By: SEN Polyethylene Glycol (Polyethylene Glycol 3350 17 Gm Powd.Pack) 17 gm PO DAILY [facility] Last Admin: 03/04/24 09:50 Dose: 17 gm Documented By: SEAMUS Quetiapine Fumarate (Quetiapine Fumarate 25 Mg Tablet) 25 mg PO ONCE PRN PRN Reason: about 45 min before eeg Last Admin: 02/17/24 09:40 Dose: 25 mg Documented By: SHLOMO Risperidone (Risperidone Oral Peg 1 Mg/Ml Solution) 0.5 mg PO BID [facility] Last Admin: 03/04/24 09:47 Dose: 0.5 mg Documented By: SEAMUS Sodium Chloride (0.9 % Sodium Chloride Flush 3 Ml Syringe) 3 ml IVFLUSH QSHIFT [facility] Last Admin: 03/04/24 09:51 Dose: Not Given Documented By: SEAMUS Non-Admin Reason: No Access Trazodone HCl (Trazodone Hcl 25 Mg Halftab) 25 mg PO BEDTIME PRN PRN Reason: Insomnia Last Admin: 03/02/24 23:49 Dose: 25 mg Documented By: CHRIS Comments: Pt reports unable to sleep Labs 02/15/24 06:10 02/15/24 06:10 Assessment and Plan (1) Cognitive and behavioral changes: Status: Acute Plan 83M PMH htn, unspecified dementia, admitted to [facility] 02/13/24 for FTT, not taking meds or food, transfered to medicine 02/14/24. 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 Nate Genao and her phone number is [phone] to be contacted for any updates. Quality Stroke Does the patient have a stroke diagnosis?: No VTE Prior VTE?: No VTE Risk Level:: Medical - moderate - high VTE Device Contraindication: Treatment Not Indicated VTE Drug Contraindication: N/A - Med Ordered
[2024-03-04 15:55] VITALS: BP 154/73; PULSE 88; RESP 21; TEMP 36.9; O2SAT 97
[2024-03-04 19:11] VITALS: BP 158/105; PULSE 102; RESP 21; TEMP 36.7; O2SAT 97
[2024-03-04] MEDS: traZODone HCL 25 MG HALFTAB PO (21:35)
[2024-03-04] MEDS: Acetaminophen 325 MG TABLET 650 MG PO (21:35)
[2024-03-04] MEDS: Melatonin 3 MG TABLET 6 MG PO (21:35)
[2024-03-05 04:00] VITALS: BP 177/90; PULSE 83; RESP 22; TEMP 36.7; O2SAT 95
[2024-03-05 07:26] VITALS: BP 156/73; PULSE 70; RESP 18; TEMP 36.5; O2SAT 97
[2024-03-05] MEDS: polyethylene glycoL 3350 17 GM POWD.PACK PO (08:33)
[2024-03-05] MEDS: risperiDONE Oral Sol 1 MG/ML SOLUTION 0.5 MG PO ×2 (08:33→21:28)
[2024-03-05] MEDS: amLODIPine Besylate 5 MG TABLET PO (08:33)
[2024-03-05] MEDS: Miconazole Nitrate 2% Powder 85 GM Bottle 1 APPL TOPICAL ×2 (08:33→21:29)
[2024-03-05] MEDS: NeoMY/Polymyx/Dexameth Oph Sus 5 ML BOTTLE 1 DROP EYE-BOTH ×4 (08:38→21:34)
--- NOTE | 2024-03-05 14:02 | P.PNIM_ITS ---
Subjective Subjective Date of Service: 03/05/24 Interval History: seen and evaluated this morning laying comfortable in his bed no other events Review of Systems Review of Systems: Yes all other systems are reviewed and are negative Physical Exam 2 Vital Signs: Vital Signs: Last Vital Signs Temp 97.7 F 03/05/24 07:26 Pulse 70 03/05/24 07:26 Resp 18 03/05/24 07:26 BP 156/73 H 03/05/24 07:26 Pulse Ox 97 03/05/24 07:26 O2 Del Method Room Air 03/05/24 07:26 O2 Flow Rate 2 02/29/24 19:21 BMI result Body Mass Index 23.8 Const: Other: Constitutional : Awake, interactive, not in distress Neck : Normal inspection, Supple Cardiovascular : RRR, no JVP, no lower extremity edema Respiratory : good bilateral air entry, Gastrointestinal: soft, lax, Skin : Warm, Dry Neurological : Alert & disoriented to place and time, No focal deficit Objective Data Active Medications Acetaminophen (Acetaminophen 325 Mg Tablet) 650 mg PO Q6H PRN PRN Reason: Pain, Mild (Pain Scale 1-3), fever or headache Last Admin: 03/04/24 21:35 Dose: 650 mg Documented By: IZABEL Al Hydroxide/Mg Hydroxide (Magnesium Hydrox/Alum Hydrox 30 Ml Oral.Susp) 30 ml PO Q6H PRN PRN Reason: Constipation Amlodipine Besylate (Amlodipine Besylate 5 Mg Tablet) 5 mg PO DAILY [facility]; Protocol Last Admin: 03/05/24 08:33 Dose: 5 mg Documented By: RIOSCEL Benzonatate (Benzonatate 100 Mg Capsule) 100 mg PO TID PRN PRN Reason: Cough Calcium Carbonate (Calcium Carbonate 750 Mg Tab.Chew) 750 mg PO Q4H PRN PRN Reason: Heartburn Clonidine (Clonidine 0.1 Mg Patch.Tdwk) 0.1 mg TRANSDERMA Tu@0900 [facility]; Protocol Last Admin: 03/03/24 10:32 Dose: 0.1 mg Documented By: PITA Enoxaparin Sodium (Enoxaparin Sodium 40 Mg/0.4 Ml Syringe) 40 mg SUBCUT Q24H [facility] Last Admin: 02/16/24 19:27 Dose: 40 mg Documented By: SHLOMO Magnesium Hydroxide (Milk Of Magnesia 30 Ml Oral.Susp) 30 ml PO DAILY PRN PRN Reason: Constipation Melatonin (Melatonin 3 Mg Tablet) 6 mg PO BEDTIME PRN PRN Reason: Insomnia Last Admin: 03/04/24 21:35 Dose: 6 mg Documented By: IZABEL Miconazole Nitrate (Miconazole Nitrate 2% Powder 85 Gm Bottle) 1 appl TOPICAL BID [facility]; Protocol Last Admin: 03/05/24 08:33 Dose: 1 appl Documented By: BERTO Neomycin/Polymyxin/Dexamethasone (Neomy/Polymyx/Dexameth Oph Alda 5 Ml Bottle) 1 drop EYE-BOTH QID [facility] Last Admin: 03/05/24 08:38 Dose: 1 drop Documented By: BERTO Nicotine Polacrilex (Nicotine Polacrilex 2 Mg Gum) 4 mg BUCCAL Q2H PRN PRN Reason: Nicotine Cravings Ondansetron HCl (Ondansetron Hcl 4 Mg/2 Ml Vial) 4 mg IVPUSH Q8H PRN PRN Reason: Nausea and Vomiting Last Admin: 03/02/24 18:44 Dose: 4 mg Documented By: SEN Polyethylene Glycol (Polyethylene Glycol 3350 17 Gm Powd.Pack) 17 gm PO DAILY [facility] Last Admin: 03/05/24 08:33 Dose: 17 gm Documented By: BERTO Quetiapine Fumarate (Quetiapine Fumarate 25 Mg Tablet) 25 mg PO ONCE PRN PRN Reason: about 45 min before eeg Last Admin: 02/17/24 09:40 Dose: 25 mg Documented By: SHLOMO Risperidone (Risperidone Oral Peg 1 Mg/Ml Solution) 0.5 mg PO BID [facility] Last Admin: 03/05/24 08:33 Dose: 0.5 mg Documented By: BERTO Sodium Chloride (0.9 % Sodium Chloride Flush 3 Ml Syringe) 3 ml IVFLUSH QSHIFT [facility] Last Admin: 03/05/24 13:14 Dose: Not Given Documented By: BERTO Non-Admin Reason: No Access Trazodone HCl (Trazodone Hcl 25 Mg Halftab) 25 mg PO BEDTIME PRN PRN Reason: Insomnia Last Admin: 03/04/24 21:35 Dose: 25 mg Documented By: IZABEL Labs 02/15/24 06:10 02/15/24 06:10 Assessment and Plan (1) Cognitive and behavioral changes: Status: Acute Plan 83M PMH htn, unspecified dementia, admitted to [facility] 02/13/24 for FTT, not taking meds or food, transfered to medicine 02/14/24. 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 Nate Genao and her phone number is [phone] to be contacted for any updates. Quality Stroke Does the patient have a stroke diagnosis?: No VTE Prior VTE?: No VTE Risk Level:: Medical - moderate - high VTE Device Contraindication: Treatment Not Indicated VTE Drug Contraindication: N/A - Med Ordered
[2024-03-05 16:00] VITALS: BP 164/81; PULSE 73; RESP 16; TEMP 36.5; O2SAT 96
[2024-03-05 19:22] VITALS: BP 162/72; PULSE 85; RESP 17; TEMP 36.6; O2SAT 96
[2024-03-05] MEDS: Acetaminophen 325 MG TABLET 650 MG PO (21:28)
[2024-03-05] MEDS: traZODone HCL 25 MG HALFTAB PO (21:28)
[2024-03-05] MEDS: Melatonin 3 MG TABLET 6 MG PO (21:29)
[2024-03-05 23:57] VITALS: BP 149/73; PULSE 75; RESP 20; TEMP 36.3; O2SAT 97
[2024-03-06 03:12] VITALS: BP 135/74; PULSE 70; RESP 21; TEMP 36.2; O2SAT 94
[2024-03-06 07:11] VITALS: BP 139/64; PULSE 78; RESP 18; TEMP 36; O2SAT 98
[2024-03-06] MEDS: amLODIPine Besylate 5 MG TABLET PO (08:24)
[2024-03-06] MEDS: NeoMY/Polymyx/Dexameth Oph Sus 5 ML BOTTLE 1 DROP EYE-BOTH ×3 (08:24→20:15)
[2024-03-06] MEDS: risperiDONE Oral Sol 1 MG/ML SOLUTION 0.5 MG PO ×2 (08:24→20:15)
--- NOTE | 2024-03-06 08:24 | MHC.CM.PN ---
Patient will require LTC; Conservator paper work is in progress CM will follow.
[2024-03-06] MEDS: polyethylene glycoL 3350 17 GM POWD.PACK PO (08:25)
[2024-03-06] MEDS: Miconazole Nitrate 2% Powder 85 GM Bottle 1 APPL TOPICAL ×2 (08:25→20:15)
--- NOTE | 2024-03-06 13:17 | MHC.CLN ---
F/U PT IS MODERATELY MALNOURISHED. PO INTAKE VARIABLE WITH MANY MEALS 50%-100%. WT STABLE AND WITHIN UBW RANGE. DIET RX: CHOPPED-APPROPRIATE. PT RECEIVING MAGIC CUP TID TO INCREASE KCALS. PROVIDES 870 KCALS, 27 G PROTEIN. SKIN WITH REDNESS TO BUTTOCKS. CONTINUE TO MONITOR PO INTAKE AND ENCOURAGE SUPPLEMENTS WITH WEEKLY WEIGHTS R/T MALNUTRITION.
--- NOTE | 2024-03-06 15:12 | P.PNIM_ITS ---
Subjective Subjective Date of Service: 03/06/24 Interval History: seen and evaluated this morning laying comfortable in his bed no other events Review of Systems Review of Systems: Yes all other systems are reviewed and are negative Physical Exam 2 Vital Signs: Vital Signs: Last Vital Signs Temp 96.8 F 03/06/24 07:11 Pulse 78 03/06/24 07:11 Resp 18 03/06/24 07:11 BP 139/64 03/06/24 07:11 Pulse Ox 98 03/06/24 07:11 O2 Del Method Room Air 03/06/24 07:11 O2 Flow Rate 2 02/29/24 19:21 BMI result Body Mass Index 23.8 Const: Other: Constitutional : Awake, interactive, not in distress Neck : Normal inspection, Supple Cardiovascular : RRR, no JVP, no lower extremity edema Respiratory : good bilateral air entry, Gastrointestinal: soft, lax, Skin : Warm, Dry Neurological : Alert & disoriented to place and time, No focal deficit Objective Data Active Medications Acetaminophen (Acetaminophen 325 Mg Tablet) 650 mg PO Q6H PRN PRN Reason: Pain, Mild (Pain Scale 1-3), fever or headache Last Admin: 03/05/24 21:28 Dose: 650 mg Documented By: IZABEL Al Hydroxide/Mg Hydroxide (Magnesium Hydrox/Alum Hydrox 30 Ml Oral.Susp) 30 ml PO Q6H PRN PRN Reason: Constipation Amlodipine Besylate (Amlodipine Besylate 5 Mg Tablet) 5 mg PO DAILY [facility]; Protocol Last Admin: 03/06/24 08:24 Dose: 5 mg Documented By: RIOSCEL Benzonatate (Benzonatate 100 Mg Capsule) 100 mg PO TID PRN PRN Reason: Cough Calcium Carbonate (Calcium Carbonate 750 Mg Tab.Chew) 750 mg PO Q4H PRN PRN Reason: Heartburn Clonidine (Clonidine 0.1 Mg Patch.Tdwk) 0.1 mg TRANSDERMA Tu@0900 [facility]; Protocol Last Admin: 03/03/24 10:32 Dose: 0.1 mg Documented By: PITA Enoxaparin Sodium (Enoxaparin Sodium 40 Mg/0.4 Ml Syringe) 40 mg SUBCUT Q24H [facility] Last Admin: 02/16/24 19:27 Dose: 40 mg Documented By: SHLOMO Magnesium Hydroxide (Milk Of Magnesia 30 Ml Oral.Susp) 30 ml PO DAILY PRN PRN Reason: Constipation Melatonin (Melatonin 3 Mg Tablet) 6 mg PO BEDTIME PRN PRN Reason: Insomnia Last Admin: 03/05/24 21:29 Dose: 6 mg Documented By: IZABEL Miconazole Nitrate (Miconazole Nitrate 2% Powder 85 Gm Bottle) 1 appl TOPICAL BID [facility]; Protocol Last Admin: 03/06/24 08:25 Dose: 1 appl Documented By: BERTO Neomycin/Polymyxin/Dexamethasone (Neomy/Polymyx/Dexameth Oph Alda 5 Ml Bottle) 1 drop EYE-BOTH QID [facility] Last Admin: 03/06/24 15:07 Dose: Not Given Documented By: BERTO Non-Admin Reason: Patient Asleep Nicotine Polacrilex (Nicotine Polacrilex 2 Mg Gum) 4 mg BUCCAL Q2H PRN PRN Reason: Nicotine Cravings Ondansetron HCl (Ondansetron Hcl 4 Mg/2 Ml Vial) 4 mg IVPUSH Q8H PRN PRN Reason: Nausea and Vomiting Last Admin: 03/02/24 18:44 Dose: 4 mg Documented By: SEN Polyethylene Glycol (Polyethylene Glycol 3350 17 Gm Powd.Pack) 17 gm PO DAILY [facility] Last Admin: 03/06/24 08:25 Dose: 17 gm Documented By: BERTO Quetiapine Fumarate (Quetiapine Fumarate 25 Mg Tablet) 25 mg PO ONCE PRN PRN Reason: about 45 min before eeg Last Admin: 02/17/24 09:40 Dose: 25 mg Documented By: SHLOMO Risperidone (Risperidone Oral Peg 1 Mg/Ml Solution) 0.5 mg PO BID [facility] Last Admin: 03/06/24 08:24 Dose: 0.5 mg Documented By: BERTO Sodium Chloride (0.9 % Sodium Chloride Flush 3 Ml Syringe) 3 ml IVFLUSH QSHIFT [facility] Last Admin: 03/06/24 08:24 Dose: Not Given Documented By: BERTO Non-Admin Reason: No Access Trazodone HCl (Trazodone Hcl 25 Mg Halftab) 25 mg PO BEDTIME PRN PRN Reason: Insomnia Last Admin: 03/05/24 21:28 Dose: 25 mg Documented By: IZABEL Labs 02/15/24 06:10 02/15/24 06:10 Assessment and Plan (1) Cognitive and behavioral changes: Status: Acute Plan 83M PMH htn, unspecified dementia, [facility] 02/13/24 for FTT, not taking meds or food, transfered to medicine 02/14/24. 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 Nate Genao and her phone number is [phone] to be contacted for any updates. Quality Stroke Does the patient have a stroke diagnosis?: No VTE Prior VTE?: No VTE Risk Level:: Medical - moderate - high VTE Device Contraindication: Treatment Not Indicated VTE Drug Contraindication: N/A - Med Ordered
[2024-03-06 15:14] VITALS: BP 118/62; PULSE 74; RESP 19; TEMP 36.4; O2SAT 93
[2024-03-06 19:41] VITALS: BP 143/70; PULSE 81; RESP 18; TEMP 36.9; O2SAT 94
[2024-03-07 03:55] VITALS: BP 135/63; PULSE 67; RESP 18; TEMP 36.4; O2SAT 98
[2024-03-07 07:53] VITALS: BP 137/63; PULSE 66; RESP 18; TEMP 36.5; O2SAT 97
[2024-03-07 08:37] VITALS: BP 137/63
[2024-03-07] MEDS: risperiDONE Oral Sol 1 MG/ML SOLUTION 0.5 MG PO ×2 (08:37→20:24)
[2024-03-07] MEDS: NeoMY/Polymyx/Dexameth Oph Sus 5 ML BOTTLE 1 DROP EYE-BOTH ×2 (08:37→16:32)
[2024-03-07] MEDS: polyethylene glycoL 3350 17 GM POWD.PACK PO (08:37)
[2024-03-07] MEDS: amLODIPine Besylate 5 MG TABLET PO (08:37)
[2024-03-07] MEDS: Miconazole Nitrate 2% Powder 85 GM Bottle 1 APPL TOPICAL ×2 (08:37→21:20)
[2024-03-07 11:32] VITALS: BP 132/60; PULSE 71; RESP 18; TEMP 36.4; O2SAT 97
--- NOTE | 2024-03-07 11:58 | P.PNIM_ITS ---
Subjective Subjective Date of Service: 03/07/24 Interval History: seen and evaluated this morning Having his breakfast no other events Review of Systems Review of Systems: Yes all other systems are reviewed and are negative Physical Exam 2 Vital Signs: Vital Signs: Last Vital Signs Temp 97.6 F 03/07/24 11:32 Pulse 71 03/07/24 11:32 Resp 18 03/07/24 11:32 BP 132/60 03/07/24 11:32 Pulse Ox 97 03/07/24 11:32 O2 Del Method Room Air 03/07/24 11:32 O2 Flow Rate 2 02/29/24 19:21 BMI result Body Mass Index 23.8 Const: Other: Constitutional : Awake, interactive, not in distress Neck : Normal inspection, Supple Cardiovascular : RRR, no JVP, no lower extremity edema Respiratory : good bilateral air entry, Gastrointestinal: soft, lax, Skin : Warm, Dry Neurological : Alert & disoriented to place and time, No focal deficit Objective Data Active Medications Acetaminophen (Acetaminophen 325 Mg Tablet) 650 mg PO Q6H PRN PRN Reason: Pain, Mild (Pain Scale 1-3), fever or headache Last Admin: 03/05/24 21:28 Dose: 650 mg Documented By: IZABEL Al Hydroxide/Mg Hydroxide (Magnesium Hydrox/Alum Hydrox 30 Ml Oral.Susp) 30 ml PO Q6H PRN PRN Reason: Constipation Amlodipine Besylate (Amlodipine Besylate 5 Mg Tablet) 5 mg PO DAILY [facility]; Protocol Last Admin: 03/07/24 08:37 Dose: 5 mg Documented By: FABIÁN Benzonatate (Benzonatate 100 Mg Capsule) 100 mg PO TID PRN PRN Reason: Cough Calcium Carbonate (Calcium Carbonate 750 Mg Tab.Chew) 750 mg PO Q4H PRN PRN Reason: Heartburn Clonidine (Clonidine 0.1 Mg Patch.Tdwk) 0.1 mg TRANSDERMA Tu@0900 [facility]; Protocol Last Admin: 03/03/24 10:32 Dose: 0.1 mg Documented By: PITA Enoxaparin Sodium (Enoxaparin Sodium 40 Mg/0.4 Ml Syringe) 40 mg SUBCUT Q24H [facility] Last Admin: 02/16/24 19:27 Dose: 40 mg Documented By: SHLOMO Magnesium Hydroxide (Milk Of Magnesia 30 Ml Oral.Susp) 30 ml PO DAILY PRN PRN Reason: Constipation Melatonin (Melatonin 3 Mg Tablet) 6 mg PO BEDTIME PRN PRN Reason: Insomnia Last Admin: 03/05/24 21:29 Dose: 6 mg Documented By: IZAEBL Miconazole Nitrate (Miconazole Nitrate 2% Powder 85 Gm Bottle) 1 appl TOPICAL BID [facility]; Protocol Last Admin: 03/07/24 08:37 Dose: 1 appl Documented By: FABIÁN Neomycin/Polymyxin/Dexamethasone (Neomy/Polymyx/Dexameth Oph Alda 5 Ml Bottle) 1 drop EYE-BOTH QID [facility] Last Admin: 03/07/24 08:37 Dose: 1 drop Documented By: FABIÁN Nicotine Polacrilex (Nicotine Polacrilex 2 Mg Gum) 4 mg BUCCAL Q2H PRN PRN Reason: Nicotine Cravings Ondansetron HCl (Ondansetron Hcl 4 Mg/2 Ml Vial) 4 mg IVPUSH Q8H PRN PRN Reason: Nausea and Vomiting Last Admin: 03/02/24 18:44 Dose: 4 mg Documented By: SEN Polyethylene Glycol (Polyethylene Glycol 3350 17 Gm Powd.Pack) 17 gm PO DAILY [facility] Last Admin: 03/07/24 08:37 Dose: 17 gm Documented By: FABIÁN Quetiapine Fumarate (Quetiapine Fumarate 25 Mg Tablet) 25 mg PO ONCE PRN PRN Reason: about 45 min before eeg Last Admin: 02/17/24 09:40 Dose: 25 mg Documented By: SHLOMO Risperidone (Risperidone Oral Peg 1 Mg/Ml Solution) 0.5 mg PO BID [facility] Last Admin: 03/07/24 08:37 Dose: 0.5 mg Documented By: FABIÁN Sodium Chloride (0.9 % Sodium Chloride Flush 3 Ml Syringe) 3 ml IVFLUSH QSHIFT [facility] Last Admin: 03/07/24 08:33 Dose: Not Given Documented By: FABIÁN Non-Admin Reason: No Access Trazodone HCl (Trazodone Hcl 25 Mg Halftab) 25 mg PO BEDTIME PRN PRN Reason: Insomnia Last Admin: 03/05/24 21:28 Dose: 25 mg Documented By: IZABEL Labs 02/15/24 06:10 02/15/24 06:10 Assessment and Plan (1) Cognitive and behavioral changes: Status: Acute Plan 83M PMH htn, unspecified dementia, admitted to [facility] 02/13/24 for FTT, not taking meds or food, transfered to medicine 02/14/24. Cognitive and behavioral changes, Acute on chronic Neurology appreciated, negative syphilis, Lyme EEG showing general slowing but no seizure disorder MRI not consistent with CJD CSF culture -ve CJD negative [employer] appreciated, NDD3 solids, thin liquids Likely unspecified neurodegenerative condition conjunctivitis continue day 3 polymixin/neomycin Hypertension Transdermal clonidine Amlodipine Subacute left distal radius fracture Soft cast Mood disorder Risperidone, trazodone medically cleared care team eval DVT prophylaxis with Lovenox Full Code reason for continued hospitalization: Safe dispo The patient HCP is his step-daughter Alcides can be reached on [phone] Patient sister name is Dr. Nate Genao and her phone number is [phone] to be contacted for any updates. Quality Stroke Does the patient have a stroke diagnosis?: No VTE Prior VTE?: No VTE Risk Level:: Medical - moderate - high VTE Device Contraindication: Treatment Not Indicated VTE Drug Contraindication: N/A - Med Ordered
[2024-03-07 15:39] VITALS: BP 134/68; PULSE 79; RESP 18; TEMP 36.6; O2SAT 95
[2024-03-07 19:37] VITALS: BP 166/88; PULSE 98; RESP 18; TEMP 36.9; O2SAT 95
[2024-03-07] MEDS: Melatonin 3 MG TABLET 6 MG PO (20:24)
[2024-03-08] VITALS (7 sets, daily range): BP systolic 148–171; BP diastolic 69–86; PULSE 69–85; RESP 16–19; TEMP 36.2–36.8; O2SAT 94–96
[2024-03-08] MEDS: NeoMY/Polymyx/Dexameth Oph Sus 5 ML BOTTLE 1 DROP EYE-BOTH ×3 (08:43→23:07)
[2024-03-08] MEDS: risperiDONE Oral Sol 1 MG/ML SOLUTION 0.5 MG PO ×2 (08:43→23:07)
[2024-03-08] MEDS: polyethylene glycoL 3350 17 GM POWD.PACK PO (08:43)
[2024-03-08] MEDS: amLODIPine Besylate 5 MG TABLET PO (08:43)
[2024-03-08] MEDS: Miconazole Nitrate 2% Powder 85 GM Bottle 1 APPL TOPICAL ×2 (08:44→23:07)
--- NOTE | 2024-03-08 11:34 | HO.PM.IMPN ---
Subjective Subjective Date of Service: 03/08/24 Interval History: seen and evaluated this morning Having his breakfast , comfortable no other events Review of Systems Review of Systems: Yes all other systems are reviewed and are negative Physical Exam Vital Signs: Vital Signs: Last Vital Signs Temp 97.5 F 03/08/24 08:00 Pulse 69 03/08/24 08:00 Resp 19 03/08/24 08:00 BP 158/72 H 03/08/24 08:52 Pulse Ox 96 03/08/24 08:00 O2 Del Method Room Air 03/08/24 08:00 O2 Flow Rate 2 02/29/24 19:21 BMI result Body Mass Index 23.8 Const: Other: Constitutional : Awake, interactive, not in distress Neck : Normal inspection, Supple Cardiovascular : RRR, no JVP, no lower extremity edema Respiratory : good bilateral air entry, Gastrointestinal: soft, lax, Skin : Warm, Dry Neurological : Alert & disoriented to place and time, No focal deficit Objective Data Active Medications Acetaminophen (Acetaminophen 325 Mg Tablet) 650 mg PO Q6H PRN PRN Reason: Pain, Mild (Pain Scale 1-3), fever or headache Last Admin: 03/05/24 21:28 Dose: 650 mg Documented By: IZABEL Al Hydroxide/Mg Hydroxide (Magnesium Hydrox/Alum Hydrox 30 Ml Oral.Susp) 30 ml PO Q6H PRN PRN Reason: Constipation Amlodipine Besylate (Amlodipine Besylate 5 Mg Tablet) 5 mg PO DAILY [facility]; Protocol Last Admin: 03/08/24 08:43 Dose: 5 mg Documented By: FABIÁN Benzonatate (Benzonatate 100 Mg Capsule) 100 mg PO TID PRN PRN Reason: Cough Calcium Carbonate (Calcium Carbonate 750 Mg Tab.Chew) 750 mg PO Q4H PRN PRN Reason: Heartburn Clonidine (Clonidine 0.1 Mg Patch.Tdwk) 0.1 mg TRANSDERMA Tu@0900 [facility]; Protocol Last Admin: 03/03/24 10:32 Dose: 0.1 mg Documented By: PITA Enoxaparin Sodium (Enoxaparin Sodium 40 Mg/0.4 Ml Syringe) 40 mg SUBCUT Q24H [facility] Last Admin: 02/16/24 19:27 Dose: 40 mg Documented By: SHLOMO Magnesium Hydroxide (Milk Of Magnesia 30 Ml Oral.Susp) 30 ml PO DAILY PRN PRN Reason: Constipation Melatonin (Melatonin 3 Mg Tablet) 6 mg PO BEDTIME PRN PRN Reason: Insomnia Last Admin: 03/07/24 20:24 Dose: 6 mg Documented By: GISSELLE Miconazole Nitrate (Miconazole Nitrate 2% Powder 85 Gm Bottle) 1 appl TOPICAL BID [facility]; Protocol Last Admin: 03/08/24 08:44 Dose: 1 appl Documented By: FABIÁN Neomycin/Polymyxin/Dexamethasone (Neomy/Polymyx/Dexameth Oph Alda 5 Ml Bottle) 1 drop EYE-BOTH QID [facility] Last Admin: 03/08/24 08:43 Dose: 1 drop Documented By: FABIÁN Nicotine Polacrilex (Nicotine Polacrilex 2 Mg Gum) 4 mg BUCCAL Q2H PRN PRN Reason: Nicotine Cravings Ondansetron HCl (Ondansetron Hcl 4 Mg/2 Ml Vial) 4 mg IVPUSH Q8H PRN PRN Reason: Nausea and Vomiting Last Admin: 03/02/24 18:44 Dose: 4 mg Documented By: SEN Polyethylene Glycol (Polyethylene Glycol 3350 17 Gm Powd.Pack) 17 gm PO DAILY [facility] Last Admin: 03/08/24 08:43 Dose: 17 gm Documented By: FABIÁN Quetiapine Fumarate (Quetiapine Fumarate 25 Mg Tablet) 25 mg PO ONCE PRN PRN Reason: about 45 min before eeg Last Admin: 02/17/24 09:40 Dose: 25 mg Documented By: SHLOMO Risperidone (Risperidone Oral Peg 1 Mg/Ml Solution) 0.5 mg PO BID [facility] Last Admin: 03/08/24 08:43 Dose: 0.5 mg Documented By: FABIÁN Sodium Chloride (0.9 % Sodium Chloride Flush 3 Ml Syringe) 3 ml IVFLUSH QSHIFT [facility] Last Admin: 03/08/24 08:44 Dose: Not Given Documented By: FABIÁN Non-Admin Reason: No Access Trazodone HCl (Trazodone Hcl 25 Mg Halftab) 25 mg PO BEDTIME PRN PRN Reason: Insomnia Last Admin: 03/05/24 21:28 Dose: 25 mg Documented By: LAFLAMC Labs 02/15/24 06:10 02/15/24 06:10 Assessment and Plan (1) Cognitive and behavioral changes: Status: Acute Plan 83M PMH htn, unspecified dementia, admitted to [facility] 02/13/24 for FTT, not taking meds or food, transfered to medicine 02/14/24. Cognitive and behavioral changes, Acute on chronic Neurology appreciated, negative syphilis, Lyme EEG showing general slowing but no seizure disorder MRI not consistent with CJD CSF culture -ve CJD negative [employer] appreciated, NDD3 solids, thin liquids Likely unspecified neurodegenerative condition conjunctivitis continue day 3 polymixin/neomycin Hypertension Transdermal clonidine Amlodipine Subacute left distal radius fracture Soft cast Mood disorder Risperidone, trazodone medically cleared care team eval DVT prophylaxis with Lovenox Full Code reason for continued hospitalization: Safe dispo The patient HCP is his step-daughter Alcides can be reached on [phone] Patient sister name is Dr. Nate Genao and her phone number is [phone] to be contacted for any updates. Quality Stroke Does the patient have a stroke diagnosis?: No VTE Prior VTE?: No VTE Risk Level:: Medical - moderate - high VTE Device Contraindication: Treatment Not Indicated VTE Drug Contraindication: N/A - Med Ordered
[2024-03-08] MEDS: traZODone HCL 25 MG HALFTAB PO (23:08)
[2024-03-08] MEDS: Melatonin 3 MG TABLET 6 MG PO (23:08)
[2024-03-09 04:00] VITALS: BP 149/70; PULSE 67; RESP 18; TEMP 36.2; O2SAT 94
[2024-03-09 07:30] VITALS: BP 160/78; PULSE 65; RESP 16; TEMP 36.3; O2SAT 96
--- NOTE | 2024-03-09 10:14 | MHC.CM.PN ---
Conservatorship is still pending; LTC is the goal and CM will follow.
--- NOTE | 2024-03-09 10:50 | MHC.CLN ---
F/U PO INTAKE 75%-100% DIET RX: CHOPPED-APPROPRIATE PT RECEIVING MAGIC CUP TID TO INCREASE KCALS PROVIDES 870 KCALS, 27 G PROTEIN SKIN WITH REDNESS TO BUTTOCKS CONTINUE TO MONITOR PO INTAKE AND ENCOURAGE SUPPLEMENTS WITH WEEKLY WEIGHTS R/T MALNUTRITION
[2024-03-09] MEDS: amLODIPine Besylate 5 MG TABLET PO (10:54)
[2024-03-09] MEDS: risperiDONE Oral Sol 1 MG/ML SOLUTION 0.5 MG PO ×2 (10:55→21:43)
[2024-03-09] MEDS: 0.9 % Sodium Chloride Flush 3 ML SYRINGE IVFLUSH (10:55)
[2024-03-09] MEDS: polyethylene glycoL 3350 17 GM POWD.PACK PO (10:55)
[2024-03-09] MEDS: Miconazole Nitrate 2% Powder 85 GM Bottle 1 APPL TOPICAL ×2 (11:01→21:30)
--- NOTE | 2024-03-09 11:08 | P.PNIM_ITS ---
Subjective Subjective Date of Service: 03/09/24 Interval History: seen and evaluated this morning Having his breakfast , comfortable no other events Review of Systems Review of Systems: Yes all other systems are reviewed and are negative Physical Exam 2 Vital Signs: Vital Signs: Last Vital Signs Temp 97.3 F 03/09/24 07:30 Pulse 65 03/09/24 07:30 Resp 16 03/09/24 07:30 BP 160/78 H 03/09/24 07:30 Pulse Ox 96 03/09/24 07:30 O2 Del Method Room Air 03/09/24 07:30 O2 Flow Rate 2 02/29/24 19:21 BMI result Body Mass Index 23.8 Const: Other: Constitutional : Awake, interactive, not in distress Neck : Normal inspection, Supple Cardiovascular : RRR, no JVP, no lower extremity edema Respiratory : good bilateral air entry, Gastrointestinal: soft, lax, Skin : Warm, Dry Neurological : Alert & disoriented to place and time, No focal deficit Objective Data Active Medications Acetaminophen (Acetaminophen 325 Mg Tablet) 650 mg PO Q6H PRN PRN Reason: Pain, Mild (Pain Scale 1-3), fever or headache Last Admin: 03/05/24 21:28 Dose: 650 mg Documented By: IZABEL Al Hydroxide/Mg Hydroxide (Magnesium Hydrox/Alum Hydrox 30 Ml Oral.Susp) 30 ml PO Q6H PRN PRN Reason: Constipation Amlodipine Besylate (Amlodipine Besylate 5 Mg Tablet) 5 mg PO DAILY [facility]; Protocol Last Admin: 03/08/24 08:43 Dose: 5 mg Documented By: FABIÁN Benzonatate (Benzonatate 100 Mg Capsule) 100 mg PO TID PRN PRN Reason: Cough Calcium Carbonate (Calcium Carbonate 750 Mg Tab.Chew) 750 mg PO Q4H PRN PRN Reason: Heartburn Clonidine (Clonidine 0.1 Mg Patch.Tdwk) 0.1 mg TRANSDERMA Tu@0900 [facility]; Protocol Last Admin: 03/03/24 10:32 Dose: 0.1 mg Documented By: PITA Enoxaparin Sodium (Enoxaparin Sodium 40 Mg/0.4 Ml Syringe) 40 mg SUBCUT Q24H [facility] Last Admin: 02/16/24 19:27 Dose: 40 mg Documented By: SHLOMO Magnesium Hydroxide (Milk Of Magnesia 30 Ml Oral.Susp) 30 ml PO DAILY PRN PRN Reason: Constipation Melatonin (Melatonin 3 Mg Tablet) 6 mg PO BEDTIME PRN PRN Reason: Insomnia Last Admin: 03/08/24 23:08 Dose: 6 mg Documented By: IZABEL Miconazole Nitrate (Miconazole Nitrate 2% Powder 85 Gm Bottle) 1 appl TOPICAL BID [facility]; Protocol Last Admin: 03/08/24 23:07 Dose: 1 appl Documented By: IZABEL Neomycin/Polymyxin/Dexamethasone (Neomy/Polymyx/Dexameth Oph Alda 5 Ml Bottle) 1 drop EYE-BOTH QID [facility] Last Admin: 03/08/24 23:07 Dose: 1 drop Documented By: IZABEL Nicotine Polacrilex (Nicotine Polacrilex 2 Mg Gum) 4 mg BUCCAL Q2H PRN PRN Reason: Nicotine Cravings Ondansetron HCl (Ondansetron Hcl 4 Mg/2 Ml Vial) 4 mg IVPUSH Q8H PRN PRN Reason: Nausea and Vomiting Last Admin: 03/02/24 18:44 Dose: 4 mg Documented By: SEN Polyethylene Glycol (Polyethylene Glycol 3350 17 Gm Powd.Pack) 17 gm PO DAILY [facility] Last Admin: 03/08/24 08:43 Dose: 17 gm Documented By: FABIÁN Quetiapine Fumarate (Quetiapine Fumarate 25 Mg Tablet) 25 mg PO ONCE PRN PRN Reason: about 45 min before eeg Last Admin: 02/17/24 09:40 Dose: 25 mg Documented By: SHLOMO Risperidone (Risperidone Oral Peg 1 Mg/Ml Solution) 0.5 mg PO BID [facility] Last Admin: 03/08/24 23:07 Dose: 0.5 mg Documented By: IZABEL Sodium Chloride (0.9 % Sodium Chloride Flush 3 Ml Syringe) [facility] Last Admin: 03/09/24 03:25 Dose: Not Given Documented By: IZABEL Non-Admin Reason: Previously Administered Trazodone HCl (Trazodone Hcl 25 Mg Halftab) 25 mg PO BEDTIME PRN PRN Reason: Insomnia Last Admin: 03/08/24 23:08 Dose: 25 mg Documented By: IZABEL Labs 02/15/24 06:10 02/15/24 06:10 Assessment and Plan (1) Cognitive and behavioral changes: Status: Acute Plan 83M PMH htn, unspecified dementia, [facility] for FTT, not taking meds or food, transfered to medicine 02/14/24. 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 CSF culture -ve, CJD negative [employer] appreciated, NDD3 solids, thin liquids Likely unspecified neurodegenerative condition conjunctivitis continue day 3 polymixin/neomycin Hypertension Transdermal clonidine Amlodipine Subacute left distal radius fracture Soft cast Mood disorder Risperidone, trazodone medically cleared care team eval DVT prophylaxis with Lovenox Full Code reason for continued hospitalization: Safe dispo The patient HCP is his step-daughter Alcides can be reached on [phone] Patient sister name is Dr. Nate Genao and her phone number is [phone] to be contacted for any updates. Quality Stroke Does the patient have a stroke diagnosis?: No VTE Prior VTE?: No VTE Risk Level:: Medical - moderate - high VTE Device Contraindication: Treatment Not Indicated VTE Drug Contraindication: N/A - Med Ordered
[2024-03-09] MEDS: NeoMY/Polymyx/Dexameth Oph Sus 5 ML BOTTLE 1 DROP EYE-BOTH ×4 (11:09→21:30)
[2024-03-09 11:58] VITALS: BP 148/69; PULSE 71; RESP 18; TEMP 36.1; O2SAT 96
[2024-03-09 13:00] VITALS: BMI 23.7
[2024-03-09 15:30] VITALS: BP 165/77; PULSE 79; RESP 18; TEMP 36.6; O2SAT 96
[2024-03-09 19:47] VITALS: BP 171/83; PULSE 82; RESP 18; TEMP 36.4; O2SAT 95
[2024-03-09] MEDS: Melatonin 3 MG TABLET 6 MG PO (21:43)
[2024-03-09] MEDS: traZODone HCL 25 MG HALFTAB PO (21:43)
[2024-03-10 03:18] VITALS: BP 147/74; PULSE 70; RESP 18; TEMP 36.2; O2SAT 97
[2024-03-10 07:56] VITALS: BP 166/82; PULSE 65; RESP 20; TEMP 36.8; O2SAT 96
[2024-03-10] MEDS: risperiDONE Oral Sol 1 MG/ML SOLUTION 0.5 MG PO ×2 (10:28→22:43)
[2024-03-10] MEDS: polyethylene glycoL 3350 17 GM POWD.PACK PO (10:28)
[2024-03-10] MEDS: Miconazole Nitrate 2% Powder 85 GM Bottle 1 APPL TOPICAL ×2 (10:29→22:41)
[2024-03-10] MEDS: amLODIPine Besylate 5 MG TABLET PO (10:29)
[2024-03-10] MEDS: NeoMY/Polymyx/Dexameth Oph Sus 5 ML BOTTLE 1 DROP EYE-BOTH ×4 (10:31→22:31)
[2024-03-10] MEDS: cloNIDine 0.1 MG PATCH.TDWK TRANSDERMA (11:23)
--- NOTE | 2024-03-10 15:12 | P.PNIM_ITS ---
Subjective Subjective Date of Service: 03/10/24 Interval History: seen and evaluated this morning Having his breakfast , comfortable no other events Physical Exam 2 Vital Signs: Vital Signs: Last Vital Signs Temp 98.3 F 03/10/24 07:56 Pulse 65 03/10/24 07:56 Resp 20 03/10/24 07:56 BP 166/82 H 03/10/24 07:56 Pulse Ox 96 03/10/24 07:56 O2 Del Method Room Air 03/10/24 07:56 O2 Flow Rate 2 02/29/24 19:21 BMI result Body Mass Index 23.7 Const: Other: Constitutional : Awake, interactive, not in distress Neck : Normal inspection, Supple Cardiovascular : RRR, no JVP, no lower extremity edema Respiratory : good bilateral air entry, Gastrointestinal: soft, lax, Skin : Warm, Dry Neurological : Alert & disoriented to place and time, No focal deficit Objective Data Active Medications Acetaminophen (Acetaminophen 325 Mg Tablet) 650 mg PO Q6H PRN PRN Reason: Pain, Mild (Pain Scale 1-3), fever or headache Last Admin: 03/05/24 21:28 Dose: 650 mg Documented By: IZABEL Al Hydroxide/Mg Hydroxide (Magnesium Hydrox/Alum Hydrox 30 Ml Oral.Susp) 30 ml PO Q6H PRN PRN Reason: Constipation Amlodipine Besylate (Amlodipine Besylate 5 Mg Tablet) 5 mg PO DAILY [facility]; Protocol Last Admin: 03/10/24 10:29 Dose: 5 mg Documented By: ANNA Benzonatate (Benzonatate 100 Mg Capsule) 100 mg PO TID PRN PRN Reason: Cough Calcium Carbonate (Calcium Carbonate 750 Mg Tab.Chew) 750 mg PO Q4H PRN PRN Reason: Heartburn Clonidine (Clonidine 0.1 Mg Patch.Tdwk) 0.1 mg TRANSDERMA Tu@0900 [facility]; Protocol Last Admin: 03/10/24 11:23 Dose: 0.1 mg Documented By: ANNA Enoxaparin Sodium (Enoxaparin Sodium 40 Mg/0.4 Ml Syringe) 40 mg SUBCUT Q24H [facility] Last Admin: 02/16/24 19:27 Dose: 40 mg Documented By: SHLOMO Magnesium Hydroxide (Milk Of Magnesia 30 Ml Oral.Susp) 30 ml PO DAILY PRN PRN Reason: Constipation Melatonin (Melatonin 3 Mg Tablet) 6 mg PO BEDTIME PRN PRN Reason: Insomnia Last Admin: 03/09/24 21:43 Dose: 6 mg Documented By: NARCISA Miconazole Nitrate (Miconazole Nitrate 2% Powder 85 Gm Bottle) 1 appl TOPICAL BID [facility]; Protocol Last Admin: 03/10/24 10:29 Dose: 1 appl Documented By: ANNA Neomycin/Polymyxin/Dexamethasone (Neomy/Polymyx/Dexameth Oph Alda 5 Ml Bottle) 1 drop EYE-BOTH QID [facility] Last Admin: 03/10/24 14:05 Dose: 1 drop Documented By: ANNA Nicotine Polacrilex (Nicotine Polacrilex 2 Mg Gum) 4 mg BUCCAL Q2H PRN PRN Reason: Nicotine Cravings Ondansetron HCl (Ondansetron Hcl 4 Mg/2 Ml Vial) 4 mg IVPUSH Q8H PRN PRN Reason: Nausea and Vomiting Last Admin: 03/02/24 18:44 Dose: 4 mg Documented By: SEN Polyethylene Glycol (Polyethylene Glycol 3350 17 Gm Powd.Pack) 17 gm PO DAILY [facility] Last Admin: 03/10/24 10:28 Dose: 17 gm Documented By: ANNA Quetiapine Fumarate (Quetiapine Fumarate 25 Mg Tablet) 25 mg PO ONCE PRN PRN Reason: about 45 min before eeg Last Admin: 02/17/24 09:40 Dose: 25 mg Documented By: SHLOMO Risperidone (Risperidone Oral Peg 1 Mg/Ml Solution) 0.5 mg PO BID [facility] Last Admin: 03/10/24 10:28 Dose: 0.5 mg Documented By: ANNA Sodium Chloride (0.9 % Sodium Chloride Flush 3 Ml Syringe) 3 ml IVFLUSH QSHIFT [facility] Last Admin: 03/10/24 10:36 Dose: Not Given Documented By: ANNA Non-Admin Reason: No Access Trazodone HCl (Trazodone Hcl 25 Mg Halftab) 25 mg PO BEDTIME PRN PRN Reason: Insomnia Last Admin: 03/09/24 21:43 Dose: 25 mg Documented By: NARCISA Labs 02/15/24 06:10 02/15/24 06:10 Assessment and Plan (1) Cognitive and behavioral changes: Status: Acute Plan 83M PMH htn, unspecified dementia, admitted to [facility] 02/13/24 for FTT, not taking meds or food, transfered to medicine 02/14/24. 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 CSF culture -ve, CJD negative [employer] appreciated, NDD3 solids, thin liquids Likely unspecified neurodegenerative condition conjunctivitis continue day 3 polymixin/neomycin Hypertension Transdermal clonidine Amlodipine Subacute left distal radius fracture Soft cast Mood disorder Risperidone, trazodone medically cleared care team eval DVT prophylaxis with Lovenox Full Code reason for continued hospitalization: Safe dispo The patient HCP is his step-daughter Alcides can be reached on [phone] Patient sister name is Dr. Nate Genao and her phone number is [phone] to be contacted for any updates. Quality Stroke Does the patient have a stroke diagnosis?: No VTE Prior VTE?: No VTE Risk Level:: Medical - moderate - high VTE Device Contraindication: Treatment Not Indicated VTE Drug Contraindication: N/A - Med Ordered
[2024-03-10 16:10] VITALS: BP 168/77; PULSE 75; RESP 18; TEMP 36.8; O2SAT 96
[2024-03-10] MEDS: 0.9 % Sodium Chloride Flush 3 ML SYRINGE IVFLUSH (18:07)
[2024-03-10 19:55] VITALS: BP 169/63; PULSE 83; RESP 18; TEMP 37; O2SAT 96
[2024-03-10] MEDS: Acetaminophen 325 MG TABLET 650 MG PO (22:32)
[2024-03-10] MEDS: traZODone HCL 25 MG HALFTAB PO (22:32)
[2024-03-10 23:26] VITALS: BP 146/69; PULSE 76; RESP 18; TEMP 36.7; O2SAT 96
[2024-03-10 23:32] VITALS: RESP 18; RESP 20
[2024-03-11 03:28] VITALS: BP 132/66; PULSE 78; RESP 16; TEMP 36.6; O2SAT 95
[2024-03-11 07:42] VITALS: BP 159/77; PULSE 66; RESP 20; TEMP 36.6; O2SAT 96
[2024-03-11] MEDS: risperiDONE Oral Sol 1 MG/ML SOLUTION 0.5 MG PO ×2 (08:09→21:48)
[2024-03-11] MEDS: Acetaminophen 325 MG TABLET 650 MG PO (08:09)
[2024-03-11] MEDS: amLODIPine Besylate 5 MG TABLET PO (08:10)
[2024-03-11] MEDS: NeoMY/Polymyx/Dexameth Oph Sus 5 ML BOTTLE 1 DROP EYE-BOTH (08:10)
[2024-03-11] MEDS: polyethylene glycoL 3350 17 GM POWD.PACK PO (08:12)
[2024-03-11] MEDS: Miconazole Nitrate 2% Powder 85 GM Bottle 1 APPL TOPICAL ×2 (08:16→21:50)
--- NOTE | 2024-03-11 10:47 | MHC.CM.PN ---
EMR reviewed and per MD rounds, pt is unable to discharge due to pending conservatorship, then will need LTC placement.
--- NOTE | 2024-03-11 11:19 | HO.PM.IMPN ---
Subjective Subjective Date of Service: 03/11/24 Interval History: no complaints Physical Exam Vital Signs: Vital Signs: Last Vital Signs Temp 97.9 F 03/11/24 07:42 Pulse 66 03/11/24 07:42 Resp 20 03/11/24 07:42 BP 159/77 H 03/11/24 07:42 Pulse Ox 96 03/11/24 07:42 O2 Del Method Room Air 03/11/24 07:42 O2 Flow Rate 2 02/29/24 19:21 BMI result Body Mass Index 23.7 Const: Other: Constitutional : Awake, interactive, not in distress Neck : Normal inspection, Supple Cardiovascular : RRR, no JVP, no lower extremity edema Respiratory : good bilateral air entry, Gastrointestinal: soft, lax, Skin : Warm, Dry Neurological : Alert & disoriented to place and time, No focal deficit Objective Data Active Medications Acetaminophen (Acetaminophen 325 Mg Tablet) 650 mg PO Q6H PRN PRN Reason: Pain, Mild (Pain Scale 1-3), fever or headache Last Admin: 03/11/24 08:09 Dose: 650 mg Documented By: ADELINE Al Hydroxide/Mg Hydroxide (Magnesium Hydrox/Alum Hydrox 30 Ml Oral.Susp) 30 ml PO Q6H PRN PRN Reason: Constipation Amlodipine Besylate (Amlodipine Besylate 5 Mg Tablet) 5 mg PO DAILY [facility]; Protocol Last Admin: 03/11/24 08:10 Dose: 5 mg Documented By: ADELINE Benzonatate (Benzonatate 100 Mg Capsule) 100 mg PO TID PRN PRN Reason: Cough Calcium Carbonate (Calcium Carbonate 750 Mg Tab.Chew) 750 mg PO Q4H PRN PRN Reason: Heartburn Clonidine (Clonidine 0.1 Mg Patch.Tdwk) 0.1 mg TRANSDERMA Tu@0900 [facility]; Protocol Last Admin: 03/10/24 11:23 Dose: 0.1 mg Documented By: ANNA Enoxaparin Sodium (Enoxaparin Sodium 40 Mg/0.4 Ml Syringe) 40 mg SUBCUT Q24H [facility] Last Admin: 02/16/24 19:27 Dose: 40 mg Documented By: SHLOMO Magnesium Hydroxide (Milk Of Magnesia 30 Ml Oral.Susp) 30 ml PO DAILY PRN PRN Reason: Constipation Melatonin (Melatonin 3 Mg Tablet) 6 mg PO BEDTIME PRN PRN Reason: Insomnia Last Admin: 03/09/24 21:43 Dose: 6 mg Documented By: NARCISA Miconazole Nitrate (Miconazole Nitrate 2% Powder 85 Gm Bottle) 1 appl TOPICAL BID [facility]; Protocol Last Admin: 03/11/24 08:16 Dose: 1 appl Documented By: ADELINE Neomycin/Polymyxin/Dexamethasone (Neomy/Polymyx/Dexameth Oph Alda 5 Ml Bottle) 1 drop EYE-BOTH QID [facility] Last Admin: 03/11/24 08:10 Dose: 1 drop Documented By: ADELINE Nicotine Polacrilex (Nicotine Polacrilex 2 Mg Gum) 4 mg BUCCAL Q2H PRN PRN Reason: Nicotine Cravings Ondansetron HCl (Ondansetron Hcl 4 Mg/2 Ml Vial) 4 mg IVPUSH Q8H PRN PRN Reason: Nausea and Vomiting Last Admin: 03/02/24 18:44 Dose: 4 mg Documented By: SEN Polyethylene Glycol (Polyethylene Glycol 3350 17 Gm Powd.Pack) 17 gm PO DAILY [facility] Last Admin: 03/11/24 08:12 Dose: 17 gm Documented By: ADELINE Quetiapine Fumarate (Quetiapine Fumarate 25 Mg Tablet) 25 mg PO ONCE PRN PRN Reason: about 45 min before eeg Last Admin: 02/17/24 09:40 Dose: 25 mg Documented By: SHLOMO Risperidone (Risperidone Oral Peg 1 Mg/Ml Solution) 0.5 mg PO BID [facility] Last Admin: 03/11/24 08:09 Dose: 0.5 mg Documented By: ADELINE Sodium Chloride (0.9 % Sodium Chloride Flush 3 Ml Syringe) 3 ml IVFLUSH QSHIFT [facility] Last Admin: 03/11/24 08:13 Dose: Not Given Documented By: ADELINE Non-Admin Reason: No Access Trazodone HCl (Trazodone Hcl 25 Mg Halftab) 25 mg PO BEDTIME PRN PRN Reason: Insomnia Last Admin: 03/10/24 22:32 Dose: 25 mg Documented By: CHRIS Comments: asked to help sleep Labs 02/15/24 06:10 02/15/24 06:10 Assessment and Plan (1) Cognitive and behavioral changes: Status: Acute Plan 83M PMH htn, unspecified dementia, admitted to [facility] 02/13/24 for FTT, not taking meds or food, transfered to medicine 02/14/24. 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 Nate Genao and her phone number is [phone] to be contacted for any updates. Quality Stroke Does the patient have a stroke diagnosis?: No VTE Prior VTE?: No VTE Risk Level:: Medical - moderate - high VTE Device Contraindication: Treatment Not Indicated VTE Drug Contraindication: N/A - Med Ordered
--- NOTE | 2024-03-11 11:23 | MHC.CLN ---
F/U PO INTAKE 75-100% WT STABLE-AT BASELINE DIET RX: CHOPPED-APPROPRIATE PT RECEIVING MAGIC CUP TID TO INCREASE KCALS PROVIDES 870 KCALS, 27 G PROTEIN SKIN WITH REDNESS TO BUTTOCKS CONTINUE TO MONITOR PO INTAKE AND ENCOURAGE SUPPLEMENTS WITH WEEKLY WEIGHTS R/T MALNUTRITION
[2024-03-11 15:12] VITALS: BP 123/70; PULSE 74; RESP 20; TEMP 36.6; O2SAT 96
[2024-03-11 20:00] VITALS: BP 156/83; PULSE 93; RESP 20; TEMP 36.9; O2SAT 93
[2024-03-12 03:13] VITALS: BP 167/78; PULSE 69; TEMP 36.7; O2SAT 94
[2024-03-12 07:36] VITALS: BP 145/75; PULSE 68; RESP 20; TEMP 36.6; O2SAT 97
[2024-03-12] MEDS: risperiDONE Oral Sol 1 MG/ML SOLUTION 0.5 MG PO ×2 (09:21→20:02)
[2024-03-12] MEDS: amLODIPine Besylate 5 MG TABLET PO (09:21)
[2024-03-12] MEDS: polyethylene glycoL 3350 17 GM POWD.PACK PO (09:22)
[2024-03-12] MEDS: Miconazole Nitrate 2% Powder 85 GM Bottle 1 APPL TOPICAL ×2 (09:23→20:20)
--- NOTE | 2024-03-12 09:52 | HO.PM.IMPN ---
Subjective Subjective Date of Service: 03/12/24 Interval History: no complaints Physical Exam Vital Signs: Vital Signs: Last Vital Signs Temp 97.8 F 03/12/24 07:36 Pulse 68 03/12/24 07:36 Resp 20 03/12/24 07:36 BP 145/75 H 03/12/24 07:36 Pulse Ox 97 03/12/24 07:36 O2 Del Method Room Air 03/12/24 07:36 O2 Flow Rate 2 02/29/24 19:21 BMI result Body Mass Index 23.7 Const: Other: Constitutional : Awake, interactive, not in distress Neck : Normal inspection, Supple Cardiovascular : RRR, no JVP, no lower extremity edema Respiratory : good bilateral air entry, Gastrointestinal: soft, lax, Skin : Warm, Dry Neurological : Alert & disoriented to place and time, No focal deficit Objective Data Active Medications Acetaminophen (Acetaminophen 325 Mg Tablet) 650 mg PO Q6H PRN PRN Reason: Pain, Mild (Pain Scale 1-3), fever or headache Last Admin: 03/11/24 08:09 Dose: 650 mg Documented By: ADELINE Al Hydroxide/Mg Hydroxide (Magnesium Hydrox/Alum Hydrox 30 Ml Oral.Susp) 30 ml PO Q6H PRN PRN Reason: Constipation Amlodipine Besylate (Amlodipine Besylate 5 Mg Tablet) 5 mg PO DAILY [facility]; Protocol Last Admin: 03/12/24 09:21 Dose: 5 mg Documented By: GÓMEZ Benzonatate (Benzonatate 100 Mg Capsule) 100 mg PO TID PRN PRN Reason: Cough Calcium Carbonate (Calcium Carbonate 750 Mg Tab.Chew) 750 mg PO Q4H PRN PRN Reason: Heartburn Clonidine (Clonidine 0.1 Mg Patch.Tdwk) 0.1 mg TRANSDERMA Tu@0900 [facility]; Protocol Last Admin: 03/10/24 11:23 Dose: 0.1 mg Documented By: ANNA Enoxaparin Sodium (Enoxaparin Sodium 40 Mg/0.4 Ml Syringe) 40 mg SUBCUT Q24H [facility] Last Admin: 02/16/24 19:27 Dose: 40 mg Documented By: SHLOMO Magnesium Hydroxide (Milk Of Magnesia 30 Ml Oral.Susp) 30 ml PO DAILY PRN PRN Reason: Constipation Melatonin (Melatonin 3 Mg Tablet) 6 mg PO BEDTIME PRN PRN Reason: Insomnia Last Admin: 03/09/24 21:43 Dose: 6 mg Documented By: NARCISA Miconazole Nitrate (Miconazole Nitrate 2% Powder 85 Gm Bottle) 1 appl TOPICAL BID [facility]; Protocol Last Admin: 03/12/24 09:23 Dose: 1 appl Documented By: GÓMEZ Nicotine Polacrilex (Nicotine Polacrilex 2 Mg Gum) 4 mg BUCCAL Q2H PRN PRN Reason: Nicotine Cravings Ondansetron HCl (Ondansetron Hcl 4 Mg/2 Ml Vial) 4 mg IVPUSH Q8H PRN PRN Reason: Nausea and Vomiting Last Admin: 03/02/24 18:44 Dose: 4 mg Documented By: SEN Polyethylene Glycol (Polyethylene Glycol 3350 17 Gm Powd.Pack) 17 gm PO DAILY [facility] Last Admin: 03/12/24 09:22 Dose: 17 gm Documented By: GÓMEZ Quetiapine Fumarate (Quetiapine Fumarate 25 Mg Tablet) 25 mg PO ONCE PRN PRN Reason: about 45 min before eeg Last Admin: 02/17/24 09:40 Dose: 25 mg Documented By: SHLOMO Risperidone (Risperidone Oral Peg 1 Mg/Ml Solution) 0.5 mg PO BID [facility] Last Admin: 03/12/24 09:21 Dose: 0.5 mg Documented By: GÓMEZ Sodium Chloride (0.9 % Sodium Chloride Flush 3 Ml Syringe) 3 ml IVFLUSH QSHIFT [facility] Last Admin: 03/12/24 09:18 Dose: Not Given Documented By: GÓMEZ Non-Admin Reason: No Access Trazodone HCl (Trazodone Hcl 25 Mg Halftab) 25 mg PO BEDTIME PRN PRN Reason: Insomnia Last Admin: 03/10/24 22:32 Dose: 25 mg Documented By: CHRIS Comments: asked to help sleep Labs 02/15/24 06:10 02/15/24 06:10 Assessment and Plan (1) Cognitive and behavioral changes: Status: Acute Plan 83M PMH htn, unspecified dementia, admitted to [facility] 02/13/24 for FTT, not taking meds or food, transfered to medicine 02/14/24. 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 Nate Genao and her phone number is [phone] to be contacted for any updates. Quality Stroke Does the patient have a stroke diagnosis?: No VTE Prior VTE?: No VTE Risk Level:: Medical - moderate - high VTE Device Contraindication: Treatment Not Indicated VTE Drug Contraindication: N/A - Med Ordered
[2024-03-12 15:08] VITALS: BP 146/67; PULSE 75; RESP 18; TEMP 36.8; O2SAT 95
[2024-03-12 19:24] VITALS: BP 151/86; PULSE 86; RESP 18; TEMP 36.8; O2SAT 96
[2024-03-12] MEDS: traZODone HCL 25 MG HALFTAB PO (20:02)
[2024-03-12 21:02] VITALS: RESP 18
[2024-03-13 03:41] VITALS: BP 155/80; PULSE 75; RESP 17; TEMP 36.4; O2SAT 95
[2024-03-13 07:48] VITALS: BP 144/73; PULSE 64; RESP 19; TEMP 36.4; O2SAT 95
[2024-03-13] MEDS: Miconazole Nitrate 2% Powder 85 GM Bottle 1 APPL TOPICAL ×2 (08:10→20:34)
[2024-03-13] MEDS: polyethylene glycoL 3350 17 GM POWD.PACK PO (08:10)
[2024-03-13] MEDS: amLODIPine Besylate 5 MG TABLET PO (08:10)
[2024-03-13] MEDS: risperiDONE Oral Sol 1 MG/ML SOLUTION 0.5 MG PO ×2 (08:10→20:33)
--- NOTE | 2024-03-13 09:12 | MHC.CM.PN ---
Conservatorship is still pending and LTC is the plan. CM will follow.
--- NOTE | 2024-03-13 09:48 | P.PNIM_ITS ---
Subjective Subjective Date of Service: 03/13/24 Interval History: no complaints Physical Exam 2 Vital Signs: Vital Signs: Last Vital Signs Temp 97.5 F 03/13/24 07:48 Pulse 64 03/13/24 07:48 Resp 19 03/13/24 07:48 BP 144/73 H 03/13/24 07:48 Pulse Ox 95 03/13/24 07:48 O2 Del Method Room Air 03/13/24 07:48 O2 Flow Rate 2 02/29/24 19:21 BMI result Body Mass Index 23.7 Const: Other: Constitutional : Awake, interactive, not in distress Neck : Normal inspection, Supple Cardiovascular : RRR, no JVP, no lower extremity edema Respiratory : good bilateral air entry, Gastrointestinal: soft, lax, Skin : Warm, Dry Neurological : Alert & disoriented to place and time, No focal deficit Objective Data Active Medications Acetaminophen (Acetaminophen 325 Mg Tablet) 650 mg PO Q6H PRN PRN Reason: Pain, Mild (Pain Scale 1-3), fever or headache Last Admin: 03/11/24 08:09 Dose: 650 mg Documented By: ADELINE Al Hydroxide/Mg Hydroxide (Magnesium Hydrox/Alum Hydrox 30 Ml Oral.Susp) 30 ml PO Q6H PRN PRN Reason: Constipation Amlodipine Besylate (Amlodipine Besylate 5 Mg Tablet) 5 mg PO DAILY [facility]; Protocol Last Admin: 03/13/24 08:10 Dose: 5 mg Documented By: FOSTEKRoseann Benzonatate (Benzonatate 100 Mg Capsule) 100 mg PO TID PRN PRN Reason: Cough Calcium Carbonate (Calcium Carbonate 750 Mg Tab.Chew) 750 mg PO Q4H PRN PRN Reason: Heartburn Clonidine (Clonidine 0.1 Mg Patch.Tdwk) 0.1 mg TRANSDERMA Tu@0900 [facility]; Protocol Last Admin: 03/10/24 11:23 Dose: 0.1 mg Documented By: ANNA Enoxaparin Sodium (Enoxaparin Sodium 40 Mg/0.4 Ml Syringe) 40 mg SUBCUT Q24H [facility] Last Admin: 02/16/24 19:27 Dose: 40 mg Documented By: SHLOMO Magnesium Hydroxide (Milk Of Magnesia 30 Ml Oral.Susp) 30 ml PO DAILY PRN PRN Reason: Constipation Melatonin (Melatonin 3 Mg Tablet) 6 mg PO BEDTIME PRN PRN Reason: Insomnia Last Admin: 03/09/24 21:43 Dose: 6 mg Documented By: NARCISA Miconazole Nitrate (Miconazole Nitrate 2% Powder 85 Gm Bottle) 1 appl TOPICAL BID [facility]; Protocol Last Admin: 03/13/24 08:10 Dose: 1 appl Documented By: DESHAWN Nicotine Polacrilex (Nicotine Polacrilex 2 Mg Gum) 4 mg BUCCAL Q2H PRN PRN Reason: Nicotine Cravings Ondansetron HCl (Ondansetron Hcl 4 Mg/2 Ml Vial) 4 mg IVPUSH Q8H PRN PRN Reason: Nausea and Vomiting Last Admin: 03/02/24 18:44 Dose: 4 mg Documented By: SEN Polyethylene Glycol (Polyethylene Glycol 3350 17 Gm Powd.Pack) 17 gm PO DAILY [facility] Last Admin: 03/13/24 08:10 Dose: 17 gm Documented By: DESHAWN Quetiapine Fumarate (Quetiapine Fumarate 25 Mg Tablet) 25 mg PO ONCE PRN PRN Reason: about 45 min before eeg Last Admin: 02/17/24 09:40 Dose: 25 mg Documented By: SHLOMO Risperidone (Risperidone Oral Peg 1 Mg/Ml Solution) 0.5 mg PO BID [facility] Last Admin: 03/13/24 08:10 Dose: 0.5 mg Documented By: DESHAWN Sodium Chloride (0.9 % Sodium Chloride Flush 3 Ml Syringe) 3 ml IVFLUSH QSHIFT [facility] Last Admin: 03/13/24 08:11 Dose: Not Given Documented By: DESHAWN Non-Admin Reason: No Access Trazodone HCl (Trazodone Hcl 25 Mg Halftab) 25 mg PO BEDTIME PRN PRN Reason: Insomnia Last Admin: 03/12/24 20:02 Dose: 25 mg Documented By: CHRIS Labs 02/15/24 06:10 02/15/24 06:10 Assessment and Plan (1) Cognitive and behavioral changes: Status: Acute Plan 83M PMH htn, unspecified dementia, admitted [facility] 02/13/24 for FTT, not taking meds or food, transfered to medicine 02/14/24. 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 Nate Genao and her phone number is [phone] to be contacted for any updates. Quality Stroke Does the patient have a stroke diagnosis?: No VTE Prior VTE?: No VTE Risk Level:: Medical - moderate - high VTE Device Contraindication: Treatment Not Indicated VTE Drug Contraindication: N/A - Med Ordered
--- NOTE | 2024-03-13 11:02 | MHC.CLN ---
F/U PO INTAKE 75-100% WT STABLE-AT BASELINE DIET RX: CHOPPED-APPROPRIATE PT RECEIVING MAGIC CUP TID TO INCREASE KCALS PROVIDES 870 KCALS, 27 G PROTEIN SKIN WITH REDNESS TO BUTTOCKS CONTINUE TO MONITOR PO INTAKE AND ENCOURAGE SUPPLEMENTS WITH WEEKLY WEIGHTS R/T MALNUTRITION RD TO FOLLOW WEEKLY
[2024-03-13 16:00] VITALS: BP 145/70; PULSE 85; RESP 19; TEMP 36.8; O2SAT 91
[2024-03-13 20:00] VITALS: BP 162/72; PULSE 89; RESP 18; TEMP 36.4; O2SAT 97
[2024-03-13] MEDS: traZODone HCL 25 MG HALFTAB PO (20:33)
[2024-03-14] VITALS (7 sets, daily range): BP systolic 142–168; BP diastolic 62–78; PULSE 65–86; RESP 16–20; TEMP 36.3–36.6; O2SAT 93–96
--- NOTE | 2024-03-14 09:16 | P.PNIM_ITS ---
Subjective Subjective Date of Service: 03/14/24 Interval History: no complaints Physical Exam 2 Vital Signs: Vital Signs: Last Vital Signs Temp 97.8 F 03/14/24 08:00 Pulse 72 03/14/24 08:00 Resp 18 03/14/24 04:00 BP 157/99 H 03/14/24 08:00 Pulse Ox 94 03/14/24 08:00 O2 Del Method Room Air 03/14/24 08:00 O2 Flow Rate 2 02/29/24 19:21 BMI result Body Mass Index 23.7 Const: Other: Constitutional : Awake, interactive, not in distress Neck : Normal inspection, Supple Cardiovascular : RRR, no JVP, no lower extremity edema Respiratory : good bilateral air entry, Gastrointestinal: soft, lax, Skin : Warm, Dry Neurological : Alert & disoriented to place and time, No focal deficit Objective Data Active Medications Acetaminophen (Acetaminophen 325 Mg Tablet) 650 mg PO Q6H PRN PRN Reason: Pain, Mild (Pain Scale 1-3), fever or headache Last Admin: 03/11/24 08:09 Dose: 650 mg Documented By: ADELINE Al Hydroxide/Mg Hydroxide (Magnesium Hydrox/Alum Hydrox 30 Ml Oral.Susp) 30 ml PO Q6H PRN PRN Reason: Constipation Amlodipine Besylate (Amlodipine Besylate 5 Mg Tablet) 5 mg PO DAILY [facility]; Protocol Last Admin: 03/13/24 08:10 Dose: 5 mg Documented By: FOSTEKRoseann Benzonatate (Benzonatate 100 Mg Capsule) 100 mg PO TID PRN PRN Reason: Cough Calcium Carbonate (Calcium Carbonate 750 Mg Tab.Chew) 750 mg PO Q4H PRN PRN Reason: Heartburn Clonidine (Clonidine 0.1 Mg Patch.Tdwk) 0.1 mg TRANSDERMA Tu@0900 [facility]; Protocol Last Admin: 03/10/24 11:23 Dose: 0.1 mg Documented By: ANNA Enoxaparin Sodium (Enoxaparin Sodium 40 Mg/0.4 Ml Syringe) 40 mg SUBCUT Q24H [facility] Last Admin: 02/16/24 19:27 Dose: 40 mg Documented By: SHLOMO Magnesium Hydroxide (Milk Of Magnesia 30 Ml Oral.Susp) 30 ml PO DAILY PRN PRN Reason: Constipation Melatonin (Melatonin 3 Mg Tablet) 6 mg PO BEDTIME PRN PRN Reason: Insomnia Last Admin: 03/09/24 21:43 Dose: 6 mg Documented By: NARCISA Miconazole Nitrate (Miconazole Nitrate 2% Powder 85 Gm Bottle) 1 appl TOPICAL BID [facility]; Protocol Last Admin: 03/13/24 20:34 Dose: 1 appl Documented By: CHRIS Nicotine Polacrilex (Nicotine Polacrilex 2 Mg Gum) 4 mg BUCCAL Q2H PRN PRN Reason: Nicotine Cravings Ondansetron HCl (Ondansetron Hcl 4 Mg/2 Ml Vial) 4 mg IVPUSH Q8H PRN PRN Reason: Nausea and Vomiting Last Admin: 03/02/24 18:44 Dose: 4 mg Documented By: SEN Polyethylene Glycol (Polyethylene Glycol 3350 17 Gm Powd.Pack) 17 gm PO DAILY [facility] Last Admin: 03/13/24 08:10 Dose: 17 gm Documented By: DESHAWN Quetiapine Fumarate (Quetiapine Fumarate 25 Mg Tablet) 25 mg PO ONCE PRN PRN Reason: about 45 min before eeg Last Admin: 02/17/24 09:40 Dose: 25 mg Documented By: SHLOMO Risperidone (Risperidone Oral Peg 1 Mg/Ml Solution) 0.5 mg PO BID [facility] Last Admin: 03/13/24 20:33 Dose: 0.5 mg Documented By: CHRIS Sodium Chloride (0.9 % Sodium Chloride Flush 3 Ml Syringe) 3 ml IVFLUSH QSHIFT [facility] Last Admin: 03/13/24 20:34 Dose: Not Given Documented By: CHRIS Non-Admin Reason: No Access Trazodone HCl (Trazodone Hcl 25 Mg Halftab) 25 mg PO BEDTIME PRN PRN Reason: Insomnia Last Admin: 03/13/24 20:33 Dose: 25 mg Documented By: CHRIS Labs 02/15/24 06:10 02/15/24 06:10 Assessment and Plan (1) Cognitive and behavioral changes: Status: Acute Plan 83M PMH htn, unspecified dementia, admitted to [facility] 02/13/24 for FTT, not taking meds or food, transfered to medicine 02/14/24. 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 Nate Genao and her phone number is [phone] to be contacted for any updates. Quality Stroke Does the patient have a stroke diagnosis?: No VTE Prior VTE?: No VTE Risk Level:: Medical - moderate - high VTE Device Contraindication: Treatment Not Indicated VTE Drug Contraindication: N/A - Med Ordered
[2024-03-14] MEDS: amLODIPine Besylate 5 MG TABLET PO (09:52)
[2024-03-14] MEDS: risperiDONE Oral Sol 1 MG/ML SOLUTION 0.5 MG PO ×2 (09:52→19:45)
[2024-03-14] MEDS: polyethylene glycoL 3350 17 GM POWD.PACK PO (09:53)
[2024-03-14] MEDS: Miconazole Nitrate 2% Powder 85 GM Bottle 1 APPL TOPICAL ×2 (10:07→19:45)
[2024-03-14] MEDS: traZODone HCL 25 MG HALFTAB PO (19:45)
[2024-03-15 04:00] VITALS: BP 140/60; PULSE 69; RESP 20; TEMP 36.5; O2SAT 98
[2024-03-15 07:40] VITALS: BP 148/62; PULSE 69; RESP 16; TEMP 36.3; O2SAT 95
[2024-03-15] MEDS: risperiDONE Oral Sol 1 MG/ML SOLUTION 0.5 MG PO ×2 (08:33→20:22)
[2024-03-15] MEDS: polyethylene glycoL 3350 17 GM POWD.PACK PO (08:33)
[2024-03-15] MEDS: Miconazole Nitrate 2% Powder 85 GM Bottle 1 APPL TOPICAL ×2 (08:34→20:23)
[2024-03-15] MEDS: amLODIPine Besylate 5 MG TABLET PO (08:34)
--- NOTE | 2024-03-15 08:48 | HO.PM.IMPN ---
Subjective Subjective Date of Service: 03/15/24 Interval History: no complaints Physical Exam Vital Signs: Vital Signs: Last Vital Signs Temp 97.4 F 03/15/24 07:40 Pulse 69 03/15/24 07:40 Resp 16 03/15/24 07:40 BP 148/62 H 03/15/24 07:40 Pulse Ox 95 03/15/24 07:40 O2 Del Method Room Air 03/15/24 07:40 O2 Flow Rate 2 02/29/24 19:21 BMI result Body Mass Index 23.7 Const: Other: Constitutional : Awake, interactive, not in distress Neck : Normal inspection, Supple Cardiovascular : RRR, no JVP, no lower extremity edema Respiratory : good bilateral air entry, Gastrointestinal: soft, lax, Skin : Warm, Dry Neurological : Alert & disoriented to place and time, No focal deficit Objective Data Active Medications Acetaminophen (Acetaminophen 325 Mg Tablet) 650 mg PO Q6H PRN PRN Reason: Pain, Mild (Pain Scale 1-3), fever or headache Last Admin: 03/11/24 08:09 Dose: 650 mg Documented By: ADELINE Al Hydroxide/Mg Hydroxide (Magnesium Hydrox/Alum Hydrox 30 Ml Oral.Susp) 30 ml PO Q6H PRN PRN Reason: Constipation Amlodipine Besylate (Amlodipine Besylate 5 Mg Tablet) 5 mg PO DAILY [facility]; Protocol Last Admin: 03/15/24 08:34 Dose: 5 mg Documented By: SHLOMO Benzonatate (Benzonatate 100 Mg Capsule) 100 mg PO TID PRN PRN Reason: Cough Calcium Carbonate (Calcium Carbonate 750 Mg Tab.Chew) 750 mg PO Q4H PRN PRN Reason: Heartburn Clonidine (Clonidine 0.1 Mg Patch.Tdwk) 0.1 mg TRANSDERMA Tu@0900 [facility]; Protocol Last Admin: 03/10/24 11:23 Dose: 0.1 mg Documented By: ANNA Enoxaparin Sodium (Enoxaparin Sodium 40 Mg/0.4 Ml Syringe) 40 mg SUBCUT Q24H [facility] Last Admin: 02/16/24 19:27 Dose: 40 mg Documented By: SHLOMO Magnesium Hydroxide (Milk Of Magnesia 30 Ml Oral.Susp) 30 ml PO DAILY PRN PRN Reason: Constipation Melatonin (Melatonin 3 Mg Tablet) 6 mg PO BEDTIME PRN PRN Reason: Insomnia Last Admin: 03/09/24 21:43 Dose: 6 mg Documented By: NARCISA Miconazole Nitrate (Miconazole Nitrate 2% Powder 85 Gm Bottle) 1 appl TOPICAL BID [facility]; Protocol Last Admin: 03/15/24 08:34 Dose: 1 appl Documented By: SHLOMO Nicotine Polacrilex (Nicotine Polacrilex 2 Mg Gum) 4 mg BUCCAL Q2H PRN PRN Reason: Nicotine Cravings Ondansetron HCl (Ondansetron Hcl 4 Mg/2 Ml Vial) 4 mg IVPUSH Q8H PRN PRN Reason: Nausea and Vomiting Last Admin: 03/02/24 18:44 Dose: 4 mg Documented By: SEN Polyethylene Glycol (Polyethylene Glycol 3350 17 Gm Powd.Pack) 17 gm PO DAILY [facility] Last Admin: 03/15/24 08:33 Dose: 17 gm Documented By: SHLOMO Quetiapine Fumarate (Quetiapine Fumarate 25 Mg Tablet) 25 mg PO ONCE PRN PRN Reason: about 45 min before eeg Last Admin: 02/17/24 09:40 Dose: 25 mg Documented By: SHLOMO Risperidone (Risperidone Oral Peg 1 Mg/Ml Solution) 0.5 mg PO BID [facility] Last Admin: 03/15/24 08:33 Dose: 0.5 mg Documented By: SHLOMO Sodium Chloride (0.9 % Sodium Chloride Flush 3 Ml Syringe) 3 ml IVFLUSH QSHIFT [facility] Last Admin: 03/15/24 08:34 Dose: Not Given Documented By: SHLOMO Non-Admin Reason: No Access Trazodone HCl (Trazodone Hcl 25 Mg Halftab) 25 mg PO BEDTIME PRN PRN Reason: Insomnia Last Admin: 03/14/24 19:45 Dose: 25 mg Documented By: CHRIS Labs 02/15/24 06:10 02/15/24 06:10 Assessment and Plan (1) Cognitive and behavioral changes: Status: Acute Plan 83M PMH htn, unspecified dementia, admitted to [facility] 02/13/24 for FTT, not taking meds or food, transfered to medicine 02/14/24. 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 Nate Genao and her phone number is [phone] to be contacted for any updates. Quality Stroke Does the patient have a stroke diagnosis?: No VTE Prior VTE?: No VTE Risk Level:: Medical - moderate - high VTE Device Contraindication: Treatment Not Indicated VTE Drug Contraindication: N/A - Med Ordered
[2024-03-15 15:57] VITALS: BP 154/68; PULSE 76; RESP 16; TEMP 36.9; O2SAT 93
[2024-03-15 19:24] VITALS: BP 174/80; PULSE 76; RESP 18; TEMP 36.3; O2SAT 96
[2024-03-15] MEDS: traZODone HCL 25 MG HALFTAB PO (20:22)
[2024-03-16 03:51] VITALS: BP 147/80; PULSE 71; RESP 18; TEMP 36.1; O2SAT 96
[2024-03-16 07:57] VITALS: BP 154/76; PULSE 64; RESP 16; TEMP 36.3; O2SAT 96
[2024-03-16] MEDS: amLODIPine Besylate 5 MG TABLET PO (08:34)
[2024-03-16] MEDS: risperiDONE Oral Sol 1 MG/ML SOLUTION 0.5 MG PO ×2 (08:34→22:47)
[2024-03-16] MEDS: polyethylene glycoL 3350 17 GM POWD.PACK PO (08:35)
[2024-03-16] MEDS: Miconazole Nitrate 2% Powder 85 GM Bottle 1 APPL TOPICAL ×2 (08:35→22:50)
--- NOTE | 2024-03-16 09:10 | P.PNIM_ITS ---
Subjective Subjective Date of Service: 03/16/24 Interval History: no complaints Physical Exam 2 Vital Signs: Vital Signs: Last Vital Signs Temp 97.4 F 03/16/24 07:57 Pulse 64 03/16/24 07:57 Resp 16 03/16/24 07:57 BP 154/76 H 03/16/24 07:57 Pulse Ox 96 03/16/24 07:57 O2 Del Method Room Air 03/16/24 07:57 O2 Flow Rate 2 02/29/24 19:21 BMI result Body Mass Index 23.7 Const: Other: Constitutional : Awake, interactive, not in distress Neck : Normal inspection, Supple Cardiovascular : RRR, no JVP, no lower extremity edema Respiratory : good bilateral air entry, Gastrointestinal: soft, lax, Skin : Warm, Dry Neurological : Alert & disoriented to place and time, No focal deficit Objective Data Active Medications Acetaminophen (Acetaminophen 325 Mg Tablet) 650 mg PO Q6H PRN PRN Reason: Pain, Mild (Pain Scale 1-3), fever or headache Last Admin: 03/11/24 08:09 Dose: 650 mg Documented By: ADELINE Al Hydroxide/Mg Hydroxide (Magnesium Hydrox/Alum Hydrox 30 Ml Oral.Susp) 30 ml PO Q6H PRN PRN Reason: Constipation Amlodipine Besylate (Amlodipine Besylate 5 Mg Tablet) 5 mg PO DAILY [facility]; Protocol Last Admin: 03/16/24 08:34 Dose: 5 mg Documented By: JAVAD Benzonatate (Benzonatate 100 Mg Capsule) 100 mg PO TID PRN PRN Reason: Cough Calcium Carbonate (Calcium Carbonate 750 Mg Tab.Chew) 750 mg PO Q4H PRN PRN Reason: Heartburn Clonidine (Clonidine 0.1 Mg Patch.Tdwk) 0.1 mg TRANSDERMA Tu@0900 [facility]; Protocol Last Admin: 03/10/24 11:23 Dose: 0.1 mg Documented By: ANNA Enoxaparin Sodium (Enoxaparin Sodium 40 Mg/0.4 Ml Syringe) 40 mg SUBCUT Q24H [facility] Last Admin: 02/16/24 19:27 Dose: 40 mg Documented By: SHLOMO Magnesium Hydroxide (Milk Of Magnesia 30 Ml Oral.Susp) 30 ml PO DAILY PRN PRN Reason: Constipation Melatonin (Melatonin 3 Mg Tablet) 6 mg PO BEDTIME PRN PRN Reason: Insomnia Last Admin: 03/09/24 21:43 Dose: 6 mg Documented By: ANRCISA Miconazole Nitrate (Miconazole Nitrate 2% Powder 85 Gm Bottle) 1 appl TOPICAL BID [facility]; Protocol Last Admin: 03/16/24 08:35 Dose: 1 appl Documented By: JAVAD Nicotine Polacrilex (Nicotine Polacrilex 2 Mg Gum) 4 mg BUCCAL Q2H PRN PRN Reason: Nicotine Cravings Ondansetron HCl (Ondansetron Hcl 4 Mg/2 Ml Vial) 4 mg IVPUSH Q8H PRN PRN Reason: Nausea and Vomiting Last Admin: 03/02/24 18:44 Dose: 4 mg Documented By: SEN Polyethylene Glycol (Polyethylene Glycol 3350 17 Gm Powd.Pack) 17 gm PO DAILY [facility] Last Admin: 03/16/24 08:35 Dose: 17 gm Documented By: JAVAD Quetiapine Fumarate (Quetiapine Fumarate 25 Mg Tablet) 25 mg PO ONCE PRN PRN Reason: about 45 min before eeg Last Admin: 02/17/24 09:40 Dose: 25 mg Documented By: SHLOMO Risperidone (Risperidone Oral Peg 1 Mg/Ml Solution) 0.5 mg PO BID [facility] Last Admin: 03/16/24 08:34 Dose: 0.5 mg Documented By: JAVAD Sodium Chloride (0.9 % Sodium Chloride Flush 3 Ml Syringe) 3 ml IVFLUSH QSHIFT [facility] Last Admin: 03/16/24 08:35 Dose: Not Given Documented By: JAVAD Non-Admin Reason: No Access Trazodone HCl (Trazodone Hcl 25 Mg Halftab) 25 mg PO BEDTIME PRN PRN Reason: Insomnia Last Admin: 03/15/24 20:22 Dose: 25 mg Documented By: CARLOTTA Labs 02/15/24 06:10 02/15/24 06:10 Assessment and Plan (1) Cognitive and behavioral changes: Status: Acute Plan 83M PMH htn, unspecified dementia, admitted to [facility] 02/13/24 for FTT, not taking meds or food, transfered to medicine 02/14/24. 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 Nate Genao and her phone number is [phone] to be contacted for any updates. Quality Stroke Does the patient have a stroke diagnosis?: No VTE Prior VTE?: No VTE Risk Level:: Medical - moderate - high VTE Device Contraindication: Treatment Not Indicated VTE Drug Contraindication: N/A - Med Ordered
--- NOTE | 2024-03-16 10:14 | MHC.CM.PN ---
Conservatorship process is ongoing; LTC is the goal.
--- NOTE | 2024-03-16 10:45 | HO.WOUND ---
Wound Consult: Initial 83yr old?male admitted to [facility] on 02/14/24 - See progress notes and H&P for detailed history.? Wound consult placed for scrotal wound.? Patient was very resistant to assessment - he was swinging his arms and verbally frustrated. I attempted to explain the goals of my assessment but he remains resistive. His scrotum was assessed however there was limited assessment given his arms swinging and grabbing at this writers fingers. The area assessed is free of injury. The purewick is in place and no leak noted. The scrotum assessed to be pink and dry desquamation with no open wounds assessed. Advised direct care team to assess during bathing and notify this commercial underwriter of injury and for assessment. At this time I recommend we continue with Purewick Male to eliminate moisture to the area. Barrier cream to any areas toward the buttock that remain with MASD from incontinence. ? Recommendations: 1. Turn and Reposition every 2 hours and as needed for patient comfort.? Use pillows or wedges to support off loading positions. 2. Off Load all bony prominences with use of pillows and heel boots if needed.? Apply Preventative foams where needed. ? 3. Monitor for incontinence and moisture control, use barrier creams when needed for prevention and treatment. 4. Provide adequate and supplemental nutrition.? 5. Continue low air loss mattress. 6. When applicable maintain blood glucose levels per Providers order. 7. Scrotum - Continue with Purewick use. Remove daily. Cleanse with Ph balanced wipes, dry well. Apply skin prep to area, allow to dry. Apply Male Purewick. Change Daily. Re-consult wound care Nurse for wound deterioration or wound changes.
[2024-03-16 13:00] VITALS: BMI 23.7
[2024-03-16 16:00] VITALS: PULSE 100; RESP 18; TEMP 36.3; O2SAT 94
[2024-03-16 19:36] VITALS: BP 162/82; PULSE 103; RESP 20; TEMP 36.7; O2SAT 92
[2024-03-16] MEDS: traZODone HCL 25 MG HALFTAB PO (22:47)
[2024-03-16 23:56] VITALS: BP 159/77; PULSE 86; RESP 16; TEMP 36.8; O2SAT 97
[2024-03-17 04:00] VITALS: BP 146/77; PULSE 84; RESP 16; TEMP 36.5; O2SAT 96
[2024-03-17 08:00] VITALS: BP 155/85; PULSE 70; RESP 18; TEMP 36.2; O2SAT 95
[2024-03-17] MEDS: polyethylene glycoL 3350 17 GM POWD.PACK PO (08:07)
[2024-03-17] MEDS: risperiDONE Oral Sol 1 MG/ML SOLUTION 0.5 MG PO ×2 (08:07→21:11)
[2024-03-17] MEDS: Miconazole Nitrate 2% Powder 85 GM Bottle 1 APPL TOPICAL ×2 (08:08→21:11)
[2024-03-17] MEDS: amLODIPine Besylate 5 MG TABLET PO (08:08)
--- NOTE | 2024-03-17 09:22 | HO.PM.IMPN ---
Subjective Subjective Date of Service: 03/17/24 Interval History: no complaints Physical Exam Vital Signs: Vital Signs: Last Vital Signs Temp 97.1 F 03/17/24 08:00 Pulse 70 03/17/24 08:00 Resp 18 03/17/24 08:00 BP 155/85 H 03/17/24 08:00 Pulse Ox 95 03/17/24 08:00 O2 Del Method Room Air 03/17/24 08:00 O2 Flow Rate 2 02/29/24 19:21 BMI result Body Mass Index 23.7 Const: Other: Constitutional : Awake, interactive, not in distress Neck : Normal inspection, Supple Cardiovascular : RRR, no JVP, no lower extremity edema Respiratory : good bilateral air entry, Gastrointestinal: soft, lax, Skin : Warm, Dry Neurological : Alert & disoriented to place and time, No focal deficit Objective Data Active Medications Acetaminophen (Acetaminophen 325 Mg Tablet) 650 mg PO Q6H PRN PRN Reason: Pain, Mild (Pain Scale 1-3), fever or headache Last Admin: 03/11/24 08:09 Dose: 650 mg Documented By: ADELINE Al Hydroxide/Mg Hydroxide (Magnesium Hydrox/Alum Hydrox 30 Ml Oral.Susp) 30 ml PO Q6H PRN PRN Reason: Constipation Amlodipine Besylate (Amlodipine Besylate 5 Mg Tablet) 5 mg PO DAILY [facility]; Protocol Last Admin: 03/17/24 08:08 Dose: 5 mg Documented By: BERTO Benzonatate (Benzonatate 100 Mg Capsule) 100 mg PO TID PRN PRN Reason: Cough Calcium Carbonate (Calcium Carbonate 750 Mg Tab.Chew) 750 mg PO Q4H PRN PRN Reason: Heartburn Clonidine (Clonidine 0.1 Mg Patch.Tdwk) 0.1 mg TRANSDERMA Tu@0900 [facility]; Protocol Last Admin: 03/10/24 11:23 Dose: 0.1 mg Documented By: ANNA Enoxaparin Sodium (Enoxaparin Sodium 40 Mg/0.4 Ml Syringe) 40 mg SUBCUT Q24H [facility] Last Admin: 02/16/24 19:27 Dose: 40 mg Documented By: SHLOMO Magnesium Hydroxide (Milk Of Magnesia 30 Ml Oral.Susp) 30 ml PO DAILY PRN PRN Reason: Constipation Melatonin (Melatonin 3 Mg Tablet) 6 mg PO BEDTIME PRN PRN Reason: Insomnia Last Admin: 03/09/24 21:43 Dose: 6 mg Documented By: NARCISA Miconazole Nitrate (Miconazole Nitrate 2% Powder 85 Gm Bottle) 1 appl TOPICAL BID [facility]; Protocol Last Admin: 03/17/24 08:08 Dose: 1 appl Documented By: BERTO Nicotine Polacrilex (Nicotine Polacrilex 2 Mg Gum) 4 mg BUCCAL Q2H PRN PRN Reason: Nicotine Cravings Ondansetron HCl (Ondansetron Hcl 4 Mg/2 Ml Vial) 4 mg IVPUSH Q8H PRN PRN Reason: Nausea and Vomiting Last Admin: 03/02/24 18:44 Dose: 4 mg Documented By: SEN Polyethylene Glycol (Polyethylene Glycol 3350 17 Gm Powd.Pack) 17 gm PO DAILY [facility] Last Admin: 03/17/24 08:07 Dose: 17 gm Documented By: BERTO Quetiapine Fumarate (Quetiapine Fumarate 25 Mg Tablet) 25 mg PO ONCE PRN PRN Reason: about 45 min before eeg Last Admin: 02/17/24 09:40 Dose: 25 mg Documented By: SHLOMO Risperidone (Risperidone Oral Peg 1 Mg/Ml Solution) 0.5 mg PO BID [facility] Last Admin: 03/17/24 08:07 Dose: 0.5 mg Documented By: BERTO Sodium Chloride (0.9 % Sodium Chloride Flush 3 Ml Syringe) 3 ml IVFLUSH QSHIFT [facility] Last Admin: 03/17/24 08:05 Dose: Not Given Documented By: BERTO Non-Admin Reason: No Access Trazodone HCl (Trazodone Hcl 25 Mg Halftab) 25 mg PO BEDTIME PRN PRN Reason: Insomnia Last Admin: 03/16/24 22:47 Dose: 25 mg Documented By: GERARDO-JOEL Labs 02/15/24 06:10 02/15/24 06:10 Assessment and Plan (1) Cognitive and behavioral changes: Status: Acute Plan 83M PMH htn, unspecified dementia, admitted to [facility] 02/13/24 for FTT, not taking meds or food, transfered to medicine 02/14/24. 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 Nate Genao and her phone number is [phone] to be contacted for any updates. Quality Stroke Does the patient have a stroke diagnosis?: No VTE Prior VTE?: No VTE Risk Level:: Medical - moderate - high VTE Device Contraindication: Treatment Not Indicated VTE Drug Contraindication: N/A - Med Ordered
[2024-03-17] MEDS: cloNIDine 0.1 MG PATCH.TDWK TRANSDERMA (11:19)
[2024-03-17 16:00] VITALS: BP 144/79; PULSE 84; RESP 18; TEMP 37; O2SAT 96
[2024-03-17 20:00] VITALS: BP 165/86; PULSE 97; RESP 18; TEMP 36.8; O2SAT 95
[2024-03-17] MEDS: traZODone HCL 25 MG HALFTAB PO (21:11)
[2024-03-18 03:59] VITALS: RESP 18
[2024-03-18] MEDS: amLODIPine Besylate 5 MG TABLET PO (07:49)
[2024-03-18] MEDS: risperiDONE Oral Sol 1 MG/ML SOLUTION 0.5 MG PO ×2 (07:49→20:57)
[2024-03-18] MEDS: Miconazole Nitrate 2% Powder 85 GM Bottle 1 APPL TOPICAL ×2 (07:49→20:58)
[2024-03-18] MEDS: polyethylene glycoL 3350 17 GM POWD.PACK PO (07:49)
[2024-03-18 08:00] VITALS: BP 126/62; PULSE 68; RESP 17; TEMP 36.3; O2SAT 95
--- NOTE | 2024-03-18 09:29 | MHC.CM.PN ---
Conservator process is on-going.
--- NOTE | 2024-03-18 14:41 | HO.PM.IMPN ---
Subjective Subjective Date of Service: 03/18/24 Interval History: seen and evaluated this morning Having his breakfast , comfortable no other events Physical Exam Vital Signs: Vital Signs: Last Vital Signs Temp 97.4 F 03/18/24 08:00 Pulse 68 03/18/24 08:00 Resp 17 03/18/24 08:00 BP 126/62 03/18/24 08:00 Pulse Ox 95 03/18/24 08:00 O2 Del Method Room Air 03/18/24 08:00 O2 Flow Rate 2 02/29/24 19:21 BMI result Body Mass Index 23.7 Const: Other: Constitutional : Awake, interactive, not in distress Neck : Normal inspection, Supple Cardiovascular : RRR, no JVP, no lower extremity edema Respiratory : good bilateral air entry, Gastrointestinal: soft, lax, Skin : Warm, Dry Neurological : Alert & disoriented to place and time, No focal deficit Objective Data Active Medications Acetaminophen (Acetaminophen 325 Mg Tablet) 650 mg PO Q6H PRN PRN Reason: Pain, Mild (Pain Scale 1-3), fever or headache Last Admin: 03/11/24 08:09 Dose: 650 mg Documented By: ADELINE Al Hydroxide/Mg Hydroxide (Magnesium Hydrox/Alum Hydrox 30 Ml Oral.Susp) 30 ml PO Q6H PRN PRN Reason: Constipation Amlodipine Besylate (Amlodipine Besylate 5 Mg Tablet) 5 mg PO DAILY [facility]; Protocol Last Admin: 03/18/24 07:49 Dose: 5 mg Documented By: BERTO Benzonatate (Benzonatate 100 Mg Capsule) 100 mg PO TID PRN PRN Reason: Cough Calcium Carbonate (Calcium Carbonate 750 Mg Tab.Chew) 750 mg PO Q4H PRN PRN Reason: Heartburn Clonidine (Clonidine 0.1 Mg Patch.Tdwk) 0.1 mg TRANSDERMA Tu@0900 [facility]; Protocol Last Admin: 03/17/24 11:19 Dose: 0.1 mg Documented By: BERTO Enoxaparin Sodium (Enoxaparin Sodium 40 Mg/0.4 Ml Syringe) 40 mg SUBCUT Q24H [facility] Last Admin: 02/16/24 19:27 Dose: 40 mg Documented By: SHLOMO Magnesium Hydroxide (Milk Of Magnesia 30 Ml Oral.Susp) 30 ml PO DAILY PRN PRN Reason: Constipation Melatonin (Melatonin 3 Mg Tablet) 6 mg PO BEDTIME PRN PRN Reason: Insomnia Last Admin: 03/09/24 21:43 Dose: 6 mg Documented By: NARCISA Miconazole Nitrate (Miconazole Nitrate 2% Powder 85 Gm Bottle) 1 appl TOPICAL BID [facility]; Protocol Last Admin: 03/18/24 07:49 Dose: 1 appl Documented By: BERTO Nicotine Polacrilex (Nicotine Polacrilex 2 Mg Gum) 4 mg BUCCAL Q2H PRN PRN Reason: Nicotine Cravings Ondansetron HCl (Ondansetron Hcl 4 Mg/2 Ml Vial) 4 mg IVPUSH Q8H PRN PRN Reason: Nausea and Vomiting Last Admin: 03/02/24 18:44 Dose: 4 mg Documented By: SEN Polyethylene Glycol (Polyethylene Glycol 3350 17 Gm Powd.Pack) 17 gm PO DAILY [facility] Last Admin: 03/18/24 07:49 Dose: 17 gm Documented By: BERTO Quetiapine Fumarate (Quetiapine Fumarate 25 Mg Tablet) 25 mg PO ONCE PRN PRN Reason: about 45 min before eeg Last Admin: 02/17/24 09:40 Dose: 25 mg Documented By: SHLOMO Risperidone (Risperidone Oral Peg 1 Mg/Ml Solution) 0.5 mg PO BID [facility] Last Admin: 03/18/24 07:49 Dose: 0.5 mg Documented By: BERTO Sodium Chloride (0.9 % Sodium Chloride Flush 3 Ml Syringe) 3 ml IVFLUSH QSHIFT [facility] Last Admin: 03/18/24 07:45 Dose: Not Given Documented By: BERTO Non-Admin Reason: No Access Trazodone HCl (Trazodone Hcl 25 Mg Halftab) 25 mg PO BEDTIME PRN PRN Reason: Insomnia Last Admin: 03/17/24 21:11 Dose: 25 mg Documented By: NARCISA Labs 02/15/24 06:10 02/15/24 06:10 Assessment and Plan (1) Cognitive and behavioral changes: Status: Acute Plan 83M PMH htn, unspecified dementia, admitted to [facility] 02/13/24 for FTT, not taking meds or food, transfered to medicine 02/14/24. 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 Nate Genao and her phone number is [phone] to be contacted for any updates. Quality Stroke Does the patient have a stroke diagnosis?: No VTE Prior VTE?: No VTE Risk Level:: Medical - moderate - high VTE Device Contraindication: Treatment Not Indicated VTE Drug Contraindication: N/A - Med Ordered
[2024-03-18 16:00] VITALS: BP 126/84; PULSE 74; RESP 18; TEMP 36.1; O2SAT 96
[2024-03-18 19:53] VITALS: BP 152/71; PULSE 70; RESP 19; TEMP 36.3; O2SAT 94
[2024-03-18 23:52] VITALS: BP 164/76; PULSE 72; RESP 20; TEMP 36.9; O2SAT 97
[2024-03-19 07:22] VITALS: BP 140/76; PULSE 73; RESP 17; TEMP 36.3; O2SAT 96
[2024-03-19] MEDS: risperiDONE Oral Sol 1 MG/ML SOLUTION 0.5 MG PO ×2 (08:11→20:46)
[2024-03-19] MEDS: amLODIPine Besylate 5 MG TABLET PO (08:11)
[2024-03-19] MEDS: Miconazole Nitrate 2% Powder 85 GM Bottle 1 APPL TOPICAL (08:11)
[2024-03-19] MEDS: polyethylene glycoL 3350 17 GM POWD.PACK PO (08:11)
--- NOTE | 2024-03-19 12:09 | HO.PM.IMPN ---
Subjective Subjective Date of Service: 03/19/24 Interval History: seen and evaluated this morning Having his breakfast , comfortable no other events Physical Exam Vital Signs: Vital Signs: Last Vital Signs Temp 97.3 F 03/19/24 07:22 Pulse 73 03/19/24 07:22 Resp 17 03/19/24 07:22 BP 140/76 H 03/19/24 07:22 Pulse Ox 96 03/19/24 07:22 O2 Del Method Room Air 03/19/24 07:22 O2 Flow Rate 2 02/29/24 19:21 BMI result Body Mass Index 23.7 Const: Other: Constitutional : Awake, interactive, not in distress Neck : Normal inspection, Supple Cardiovascular : RRR, no JVP, no lower extremity edema Respiratory : good bilateral air entry, Gastrointestinal: soft, lax, Skin : Warm, Dry Neurological : Alert & disoriented to place and time, No focal deficit Objective Data Active Medications Acetaminophen (Acetaminophen 325 Mg Tablet) 650 mg PO Q6H PRN PRN Reason: Pain, Mild (Pain Scale 1-3), fever or headache Last Admin: 03/11/24 08:09 Dose: 650 mg Documented By: ADELINE Al Hydroxide/Mg Hydroxide (Magnesium Hydrox/Alum Hydrox 30 Ml Oral.Susp) 30 ml PO Q6H PRN PRN Reason: Constipation Amlodipine Besylate (Amlodipine Besylate 5 Mg Tablet) 5 mg PO DAILY [facility]; Protocol Last Admin: 03/19/24 08:11 Dose: 5 mg Documented By: BRENDAONOJeri Benzonatate (Benzonatate 100 Mg Capsule) 100 mg PO TID PRN PRN Reason: Cough Calcium Carbonate (Calcium Carbonate 750 Mg Tab.Chew) 750 mg PO Q4H PRN PRN Reason: Heartburn Clonidine (Clonidine 0.1 Mg Patch.Tdwk) 0.1 mg TRANSDERMA Tu@0900 [facility]; Protocol Last Admin: 03/17/24 11:19 Dose: 0.1 mg Documented By: BERTO Enoxaparin Sodium (Enoxaparin Sodium 40 Mg/0.4 Ml Syringe) 40 mg SUBCUT Q24H [facility] Last Admin: 02/16/24 19:27 Dose: 40 mg Documented By: SHLOMO Magnesium Hydroxide (Milk Of Magnesia 30 Ml Oral.Susp) 30 ml PO DAILY PRN PRN Reason: Constipation Melatonin (Melatonin 3 Mg Tablet) 6 mg PO BEDTIME PRN PRN Reason: Insomnia Last Admin: 03/09/24 21:43 Dose: 6 mg Documented By: NARCISA Miconazole Nitrate (Miconazole Nitrate 2% Powder 85 Gm Bottle) 1 appl TOPICAL BID [facility]; Protocol Last Admin: 03/19/24 08:11 Dose: 1 appl Documented By: IVETH Nicotine Polacrilex (Nicotine Polacrilex 2 Mg Gum) 4 mg BUCCAL Q2H PRN PRN Reason: Nicotine Cravings Ondansetron HCl (Ondansetron Hcl 4 Mg/2 Ml Vial) 4 mg IVPUSH Q8H PRN PRN Reason: Nausea and Vomiting Last Admin: 03/02/24 18:44 Dose: 4 mg Documented By: SEN Polyethylene Glycol (Polyethylene Glycol 3350 17 Gm Powd.Pack) 17 gm PO DAILY [facility] Last Admin: 03/19/24 08:11 Dose: 17 gm Documented By: IVETH Quetiapine Fumarate (Quetiapine Fumarate 25 Mg Tablet) 25 mg PO ONCE PRN PRN Reason: about 45 min before eeg Last Admin: 02/17/24 09:40 Dose: 25 mg Documented By: SHLOMO Risperidone (Risperidone Oral Peg 1 Mg/Ml Solution) 0.5 mg PO BID [facility] Last Admin: 03/19/24 08:11 Dose: 0.5 mg Documented By: IVETH Sodium Chloride (0.9 % Sodium Chloride Flush 3 Ml Syringe) 3 ml IVFLUSH QSHIFT [facility] Last Admin: 03/19/24 09:51 Dose: Not Given Documented By: IVETH Non-Admin Reason: No Access Trazodone HCl (Trazodone Hcl 25 Mg Halftab) 25 mg PO BEDTIME PRN PRN Reason: Insomnia Last Admin: 03/17/24 21:11 Dose: 25 mg Documented By: NARCISA Labs 02/15/24 06:10 02/15/24 06:10 Assessment and Plan (1) Cognitive and behavioral changes: Status: Acute Plan 83M PMH htn, unspecified dementia, admitted to [facility] 02/13/24 for FTT, not taking meds or food, transfered to medicine 02/14/24. 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 Nate Genao and her phone number is [phone] to be contacted for any updates. Quality Stroke Does the patient have a stroke diagnosis?: No VTE Prior VTE?: No VTE Risk Level:: Medical - moderate - high VTE Device Contraindication: Treatment Not Indicated VTE Drug Contraindication: N/A - Med Ordered
[2024-03-19 15:17] VITALS: BP 147/81; PULSE 83; RESP 18; TEMP 36.4; O2SAT 93
[2024-03-19 19:53] VITALS: BP 165/77; PULSE 97; RESP 18; TEMP 36.6; O2SAT 96
[2024-03-20] MEDS: 0.9 % Sodium Chloride Flush 3 ML SYRINGE IVFLUSH (00:30)
[2024-03-20 03:12] VITALS: BP 153/69; PULSE 78; RESP 16; TEMP 36.4; O2SAT 94
[2024-03-20] MEDS: Miconazole Nitrate 2% Powder 85 GM Bottle 1 APPL TOPICAL ×3 (03:47→20:23)
[2024-03-20 07:48] VITALS: BP 148/78; PULSE 77; RESP 18; TEMP 36.2; O2SAT 93
[2024-03-20] MEDS: risperiDONE Oral Sol 1 MG/ML SOLUTION 0.5 MG PO ×2 (09:13→20:23)
[2024-03-20] MEDS: amLODIPine Besylate 5 MG TABLET PO (09:13)
[2024-03-20] MEDS: polyethylene glycoL 3350 17 GM POWD.PACK PO (09:13)
--- NOTE | 2024-03-20 09:59 | MHC.CM.PN ---
EMR REVIEWED, PT AWAITING LTC PLACEMENT AND DATE FOR CONSERVATORSHIP HEARING, CM WILL CONT TO FOLLOW DC NEEDS.
--- NOTE | 2024-03-20 11:53 | MHC.CLN ---
F/U DIET=CHOPPED WITH FORTIFIED ICE CREAM TID. SUPPLEMENT PROVIDES 870 KCALS, 27 G PROTEIN. VARIABLE PO INTAKE, 25-75%. SKIN WITH REDNESS TO COCCYX. CONTINUE TO MONITOR PO INTAKE AND ENCOURAGE SUPPLEMENTS WITH WEEKLY WEIGHTS R/T MALNU[address] RD TO FOLLOW WEEKLY
--- NOTE | 2024-03-20 12:56 | HO.PM.IMPN ---
Subjective Subjective Date of Service: 03/20/24 Interval History: seen and evaluated this morning looks comfortable no other events Review of Systems Review of Systems: Yes all other systems are reviewed and are negative Physical Exam Vital Signs: Vital Signs: Last Vital Signs Temp 97.2 F 03/20/24 07:48 Pulse 77 03/20/24 07:48 Resp 18 03/20/24 07:48 BP 148/78 H 03/20/24 07:48 Pulse Ox 93 03/20/24 07:48 O2 Del Method Room Air 03/20/24 07:48 O2 Flow Rate 2 02/29/24 19:21 BMI result Body Mass Index 23.7 Const: Other: Constitutional : Awake, interactive, not in distress Neck : Normal inspection, Supple Cardiovascular : RRR, no JVP, no lower extremity edema Respiratory : good bilateral air entry, Gastrointestinal: soft, lax, Skin : Warm, Dry Neurological : Alert & disoriented to place and time, No focal deficit Objective Data Active Medications Acetaminophen (Acetaminophen 325 Mg Tablet) 650 mg PO Q6H PRN PRN Reason: Pain, Mild (Pain Scale 1-3), fever or headache Last Admin: 03/11/24 08:09 Dose: 650 mg Documented By: ADELINE Al Hydroxide/Mg Hydroxide (Magnesium Hydrox/Alum Hydrox 30 Ml Oral.Susp) 30 ml PO Q6H PRN PRN Reason: Constipation Amlodipine Besylate (Amlodipine Besylate 5 Mg Tablet) 5 mg PO DAILY [facility]; Protocol Last Admin: 03/20/24 09:13 Dose: 5 mg Documented By: IVETH Benzonatate (Benzonatate 100 Mg Capsule) 100 mg PO TID PRN PRN Reason: Cough Calcium Carbonate (Calcium Carbonate 750 Mg Tab.Chew) 750 mg PO Q4H PRN PRN Reason: Heartburn Clonidine (Clonidine 0.1 Mg Patch.Tdwk) 0.1 mg TRANSDERMA Tu@0900 [facility]; Protocol Last Admin: 03/17/24 11:19 Dose: 0.1 mg Documented By: BERTO Enoxaparin Sodium (Enoxaparin Sodium 40 Mg/0.4 Ml Syringe) 40 mg SUBCUT Q24H [facility] Last Admin: 02/16/24 19:27 Dose: 40 mg Documented By: SHLOMO Magnesium Hydroxide (Milk Of Magnesia 30 Ml Oral.Susp) 30 ml PO DAILY PRN PRN Reason: Constipation Melatonin (Melatonin 3 Mg Tablet) 6 mg PO BEDTIME PRN PRN Reason: Insomnia Last Admin: 03/09/24 21:43 Dose: 6 mg Documented By: NARCISA Miconazole Nitrate (Miconazole Nitrate 2% Powder 85 Gm Bottle) 1 appl TOPICAL BID [facility]; Protocol Last Admin: 03/20/24 09:13 Dose: 1 appl Documented By: IVETH Nicotine Polacrilex (Nicotine Polacrilex 2 Mg Gum) 4 mg BUCCAL Q2H PRN PRN Reason: Nicotine Cravings Ondansetron HCl (Ondansetron Hcl 4 Mg/2 Ml Vial) 4 mg IVPUSH Q8H PRN PRN Reason: Nausea and Vomiting Last Admin: 03/02/24 18:44 Dose: 4 mg Documented By: SEN Polyethylene Glycol (Polyethylene Glycol 3350 17 Gm Powd.Pack) 17 gm PO DAILY [facility] Last Admin: 03/20/24 09:13 Dose: 17 gm Documented By: IVETH Quetiapine Fumarate (Quetiapine Fumarate 25 Mg Tablet) 25 mg PO ONCE PRN PRN Reason: about 45 min before eeg Last Admin: 02/17/24 09:40 Dose: 25 mg Documented By: SHLOMO Risperidone (Risperidone Oral Peg 1 Mg/Ml Solution) 0.5 mg PO BID [facility] Last Admin: 03/20/24 09:13 Dose: 0.5 mg Documented By: IVETH Sodium Chloride (0.9 % Sodium Chloride Flush 3 Ml Syringe) 3 ml IVFLUSH QSHIFT [facility] Last Admin: 03/20/24 09:12 Dose: Not Given Documented By: IVETH Non-Admin Reason: No Access Trazodone HCl (Trazodone Hcl 25 Mg Halftab) 25 mg PO BEDTIME PRN PRN Reason: Insomnia Last Admin: 03/17/24 21:11 Dose: 25 mg Documented By: NARCISA Labs 02/15/24 06:10 02/15/24 06:10 Assessment and Plan (1) Cognitive and behavioral changes: Status: Acute Plan 83M PMH htn, unspecified dementia, admitted to [facility] 02/13/24 for FTT, not taking meds or food, transfered to medicine 02/14/24. 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 Nate Genao and her phone number is [phone] to be contacted for any updates. Quality Stroke Does the patient have a stroke diagnosis?: No VTE Prior VTE?: No VTE Risk Level:: Medical - moderate - high VTE Device Contraindication: Treatment Not Indicated VTE Drug Contraindication: N/A - Med Ordered
[2024-03-20 16:00] VITALS: BP 157/74; PULSE 80; RESP 16; TEMP 36.2; O2SAT 93
[2024-03-20 20:00] VITALS: BP 145/79; PULSE 87; RESP 14; TEMP 36.9; O2SAT 96
[2024-03-21 03:22] VITALS: BP 145/64; PULSE 77; RESP 14; TEMP 36.4; O2SAT 98
[2024-03-21 08:00] VITALS: BP 152/74; PULSE 66; RESP 18; TEMP 36.3; O2SAT 96
[2024-03-21] MEDS: risperiDONE Oral Sol 1 MG/ML SOLUTION 0.5 MG PO ×2 (08:20→20:14)
[2024-03-21] MEDS: polyethylene glycoL 3350 17 GM POWD.PACK PO (08:21)
[2024-03-21] MEDS: amLODIPine Besylate 5 MG TABLET PO (08:21)
[2024-03-21] MEDS: Miconazole Nitrate 2% Powder 85 GM Bottle 1 APPL TOPICAL ×2 (08:25→20:15)
--- NOTE | 2024-03-21 13:45 | P.PNIM_ITS ---
Subjective Subjective Date of Service: 03/21/24 Interval History: seen and evaluated this morning looks comfortable no other events Physical Exam 2 Vital Signs: Vital Signs: Last Vital Signs Temp 97.4 F 03/21/24 08:00 Pulse 66 03/21/24 08:00 Resp 18 03/21/24 08:00 BP 152/74 H 03/21/24 08:00 Pulse Ox 96 03/21/24 08:00 O2 Del Method Room Air 03/21/24 08:00 O2 Flow Rate 2 02/29/24 19:21 BMI result Body Mass Index 23.7 Const: Other: Constitutional : Awake, interactive, not in distress Neck : Normal inspection, Supple Cardiovascular : RRR, no JVP, no lower extremity edema Respiratory : good bilateral air entry, Gastrointestinal: soft, lax, Skin : Warm, Dry Neurological : Alert & disoriented to place and time, No focal deficit Objective Data Active Medications Acetaminophen (Acetaminophen 325 Mg Tablet) 650 mg PO Q6H PRN PRN Reason: Pain, Mild (Pain Scale 1-3), fever or headache Last Admin: 03/11/24 08:09 Dose: 650 mg Documented By: ADELINE Al Hydroxide/Mg Hydroxide (Magnesium Hydrox/Alum Hydrox 30 Ml Oral.Susp) 30 ml PO Q6H PRN PRN Reason: Constipation Amlodipine Besylate (Amlodipine Besylate 5 Mg Tablet) 5 mg PO DAILY [facility]; Protocol Last Admin: 03/21/24 08:21 Dose: 5 mg Documented By: LESSARCruzito Benzonatate (Benzonatate 100 Mg Capsule) 100 mg PO TID PRN PRN Reason: Cough Calcium Carbonate (Calcium Carbonate 750 Mg Tab.Chew) 750 mg PO Q4H PRN PRN Reason: Heartburn Clonidine (Clonidine 0.1 Mg Patch.Tdwk) 0.1 mg TRANSDERMA Tu@0900 [facility]; Protocol Last Admin: 03/17/24 11:19 Dose: 0.1 mg Documented By: BERTO Enoxaparin Sodium (Enoxaparin Sodium 40 Mg/0.4 Ml Syringe) 40 mg SUBCUT Q24H [facility] Last Admin: 02/16/24 19:27 Dose: 40 mg Documented By: SHLOMO Magnesium Hydroxide (Milk Of Magnesia 30 Ml Oral.Susp) 30 ml PO DAILY PRN PRN Reason: Constipation Melatonin (Melatonin 3 Mg Tablet) 6 mg PO BEDTIME PRN PRN Reason: Insomnia Last Admin: 03/09/24 21:43 Dose: 6 mg Documented By: NARCISA Miconazole Nitrate (Miconazole Nitrate 2% Powder 85 Gm Bottle) 1 appl TOPICAL BID [facility]; Protocol Last Admin: 03/21/24 08:25 Dose: 1 appl Documented By: YOU Nicotine Polacrilex (Nicotine Polacrilex 2 Mg Gum) 4 mg BUCCAL Q2H PRN PRN Reason: Nicotine Cravings Ondansetron HCl (Ondansetron Hcl 4 Mg/2 Ml Vial) 4 mg IVPUSH Q8H PRN PRN Reason: Nausea and Vomiting Last Admin: 03/02/24 18:44 Dose: 4 mg Documented By: SEN Polyethylene Glycol (Polyethylene Glycol 3350 17 Gm Powd.Pack) 17 gm PO DAILY [facility] Last Admin: 03/21/24 08:21 Dose: 17 gm Documented By: YOU Quetiapine Fumarate (Quetiapine Fumarate 25 Mg Tablet) 25 mg PO ONCE PRN PRN Reason: about 45 min before eeg Last Admin: 02/17/24 09:40 Dose: 25 mg Documented By: SHLOMO Risperidone (Risperidone Oral Peg 1 Mg/Ml Solution) 0.5 mg PO BID [facility] Last Admin: 03/21/24 08:20 Dose: 0.5 mg Documented By: YOU Sodium Chloride (0.9 % Sodium Chloride Flush 3 Ml Syringe) 3 ml IVFLUSH QSHIFT [facility] Last Admin: 03/21/24 08:26 Dose: Not Given Documented By: YOU Non-Admin Reason: No IV access Trazodone HCl (Trazodone Hcl 25 Mg Halftab) 25 mg PO BEDTIME PRN PRN Reason: Insomnia Last Admin: 03/17/24 21:11 Dose: 25 mg Documented By: NARCISA Labs 02/15/24 06:10 02/15/24 06:10 Assessment and Plan (1) Cognitive and behavioral changes: Status: Acute Plan 83M PMH htn, unspecified dementia, [facility] the medical [facility] 02/13/24 for FTT, not taking meds or food, transfered to medicine 02/14/24. 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 Nate Genao and her phone number is [phone] to be contacted for any updates. Quality Stroke Does the patient have a stroke diagnosis?: No VTE Prior VTE?: No VTE Risk Level:: Medical - moderate - high VTE Device Contraindication: Treatment Not Indicated VTE Drug Contraindication: N/A - Med Ordered
[2024-03-21 16:00] VITALS: BP 162/78; PULSE 94; RESP 18; TEMP 37.4; O2SAT 95
[2024-03-21 19:37] VITALS: BP 174/88; PULSE 126; RESP 14; TEMP 36.8; O2SAT 95
[2024-03-22 04:00] VITALS: BP 156/75; PULSE 75; RESP 16; O2SAT 93
[2024-03-22 08:00] VITALS: BP 148/70; PULSE 80; RESP 18; TEMP 36.6; O2SAT 95
[2024-03-22] MEDS: risperiDONE Oral Sol 1 MG/ML SOLUTION 0.5 MG PO ×2 (10:13→22:29)
[2024-03-22] MEDS: polyethylene glycoL 3350 17 GM POWD.PACK PO (10:13)
[2024-03-22] MEDS: amLODIPine Besylate 5 MG TABLET PO (10:14)
[2024-03-22] MEDS: Miconazole Nitrate 2% Powder 85 GM Bottle 1 APPL TOPICAL ×2 (10:15→22:29)
--- NOTE | 2024-03-22 13:40 | P.PNIM_ITS ---
Subjective Subjective Date of Service: 03/22/24 Interval History: seen and evaluated this morning looks comfortable no other events Physical Exam 2 Vital Signs: Vital Signs: Last Vital Signs Temp 97.8 F 03/22/24 08:00 Pulse 80 03/22/24 08:00 Resp 18 03/22/24 08:00 BP 148/70 H 03/22/24 08:00 Pulse Ox 95 03/22/24 08:00 O2 Del Method Room Air 03/22/24 08:00 O2 Flow Rate 2 02/29/24 19:21 BMI result Body Mass Index 23.7 Const: Other: Constitutional : Awake, interactive, not in distress Neck : Normal inspection, Supple Cardiovascular : RRR, no JVP, no lower extremity edema Respiratory : good bilateral air entry, Gastrointestinal: soft, lax, Skin : Warm, Dry Neurological : Alert & disoriented to place and time, No focal deficit Objective Data Active Medications Acetaminophen (Acetaminophen 325 Mg Tablet) 650 mg PO Q6H PRN PRN Reason: Pain, Mild (Pain Scale 1-3), fever or headache Last Admin: 03/11/24 08:09 Dose: 650 mg Documented By: ADELINE Al Hydroxide/Mg Hydroxide (Magnesium Hydrox/Alum Hydrox 30 Ml Oral.Susp) 30 ml PO Q6H PRN PRN Reason: Constipation Amlodipine Besylate (Amlodipine Besylate 5 Mg Tablet) 5 mg PO DAILY [facility]; Protocol Last Admin: 03/22/24 10:14 Dose: 5 mg Documented By: LESSARCruzito Benzonatate (Benzonatate 100 Mg Capsule) 100 mg PO TID PRN PRN Reason: Cough Calcium Carbonate (Calcium Carbonate 750 Mg Tab.Chew) 750 mg PO Q4H PRN PRN Reason: Heartburn Clonidine (Clonidine 0.1 Mg Patch.Tdwk) 0.1 mg TRANSDERMA Tu@0900 [facility]; Protocol Last Admin: 03/17/24 11:19 Dose: 0.1 mg Documented By: BERTO Enoxaparin Sodium (Enoxaparin Sodium 40 Mg/0.4 Ml Syringe) 40 mg SUBCUT Q24H [facility] Last Admin: 02/16/24 19:27 Dose: 40 mg Documented By: SHLOMO Magnesium Hydroxide (Milk Of Magnesia 30 Ml Oral.Susp) 30 ml PO DAILY PRN PRN Reason: Constipation Melatonin (Melatonin 3 Mg Tablet) 6 mg PO BEDTIME PRN PRN Reason: Insomnia Last Admin: 03/09/24 21:43 Dose: 6 mg Documented By: NARCISA Miconazole Nitrate (Miconazole Nitrate 2% Powder 85 Gm Bottle) 1 appl TOPICAL BID [facility]; Protocol Last Admin: 03/22/24 10:15 Dose: 1 appl Documented By: YOU Nicotine Polacrilex (Nicotine Polacrilex 2 Mg Gum) 4 mg BUCCAL Q2H PRN PRN Reason: Nicotine Cravings Ondansetron HCl (Ondansetron Hcl 4 Mg/2 Ml Vial) 4 mg IVPUSH Q8H PRN PRN Reason: Nausea and Vomiting Last Admin: 03/02/24 18:44 Dose: 4 mg Documented By: SEN Polyethylene Glycol (Polyethylene Glycol 3350 17 Gm Powd.Pack) 17 gm PO DAILY [facility] Last Admin: 03/22/24 10:13 Dose: 17 gm Documented By: YOU Quetiapine Fumarate (Quetiapine Fumarate 25 Mg Tablet) 25 mg PO ONCE PRN PRN Reason: about 45 min before eeg Last Admin: 02/17/24 09:40 Dose: 25 mg Documented By: SHLOMO Risperidone (Risperidone Oral Peg 1 Mg/Ml Solution) 0.5 mg PO BID [facility] Last Admin: 03/22/24 10:13 Dose: 0.5 mg Documented By: YOU Sodium Chloride (0.9 % Sodium Chloride Flush 3 Ml Syringe) 3 ml IVFLUSH QSHIFT [facility] Last Admin: 03/22/24 10:26 Dose: Not Given Documented By: YOU Non-Admin Reason: No IV access Trazodone HCl (Trazodone Hcl 25 Mg Halftab) 25 mg PO BEDTIME PRN PRN Reason: Insomnia Last Admin: 03/17/24 21:11 Dose: 25 mg Documented By: NARCISA Labs 02/15/24 06:10 02/15/24 06:10 Assessment and Plan (1) Cognitive and behavioral changes: Status: Acute Plan 83M PMH htn, unspecified dementia, admitted to [facility] 02/13/24 for FTT, not taking meds or food, transfered to medicine 02/14/24. 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 Nate Genao and her phone number is [phone] to be contacted for any updates. Quality Stroke Does the patient have a stroke diagnosis?: No VTE Prior VTE?: No VTE Risk Level:: Medical - moderate - high VTE Device Contraindication: Treatment Not Indicated VTE Drug Contraindication: N/A - Med Ordered
[2024-03-22 16:00] VITALS: BP 160/84; PULSE 73; RESP 18; TEMP 36.8; O2SAT 96
[2024-03-22 20:00] VITALS: BP 184/99; PULSE 107; RESP 20; TEMP 36.4; O2SAT 97
[2024-03-22] MEDS: traZODone HCL 25 MG HALFTAB PO (22:29)
[2024-03-22 23:29] VITALS: PULSE 80; RESP 20
[2024-03-23 04:00] VITALS: BP 146/69; PULSE 78; RESP 16; TEMP 36.7; O2SAT 95
[2024-03-23 07:18] VITALS: BP 135/69; PULSE 72; RESP 17; TEMP 36.1; O2SAT 96
[2024-03-23] MEDS: Miconazole Nitrate 2% Powder 85 GM Bottle 1 APPL TOPICAL ×2 (08:20→21:37)
[2024-03-23] MEDS: polyethylene glycoL 3350 17 GM POWD.PACK PO (08:21)
[2024-03-23] MEDS: amLODIPine Besylate 5 MG TABLET PO (08:21)
[2024-03-23] MEDS: risperiDONE Oral Sol 1 MG/ML SOLUTION 0.5 MG PO ×2 (08:21→21:33)
[2024-03-23 13:00] VITALS: BMI 23.0
--- NOTE | 2024-03-23 13:42 | P.PNIM_ITS ---
Subjective Subjective Date of Service: 03/23/24 Interval History: seen and evaluated this morning looks comfortable no other events Review of Systems Review of Systems: Yes all other systems are reviewed and are negative Physical Exam 2 Vital Signs: Vital Signs: Last Vital Signs Temp 97 F 03/23/24 07:18 Pulse 72 03/23/24 07:18 Resp 17 03/23/24 07:18 BP 135/69 03/23/24 07:18 Pulse Ox 96 03/23/24 07:18 O2 Del Method Room Air 03/23/24 07:18 O2 Flow Rate 2 02/29/24 19:21 BMI result Body Mass Index 23.7 Const: Other: Constitutional : Awake, interactive, not in distress Neck : Normal inspection, Supple Cardiovascular : RRR, no JVP, no lower extremity edema Respiratory : good bilateral air entry, Gastrointestinal: soft, lax, Skin : Warm, Dry Neurological : Alert & disoriented to place and time, No focal deficit Objective Data Active Medications Acetaminophen (Acetaminophen 325 Mg Tablet) 650 mg PO Q6H PRN PRN Reason: Pain, Mild (Pain Scale 1-3), fever or headache Last Admin: 03/11/24 08:09 Dose: 650 mg Documented By: ADELINE Al Hydroxide/Mg Hydroxide (Magnesium Hydrox/Alum Hydrox 30 Ml Oral.Susp) 30 ml PO Q6H PRN PRN Reason: Constipation Amlodipine Besylate (Amlodipine Besylate 5 Mg Tablet) 5 mg PO DAILY [facility]; Protocol Last Admin: 03/23/24 08:21 Dose: 5 mg Documented By: LESSARCruzito Benzonatate (Benzonatate 100 Mg Capsule) 100 mg PO TID PRN PRN Reason: Cough Calcium Carbonate (Calcium Carbonate 750 Mg Tab.Chew) 750 mg PO Q4H PRN PRN Reason: Heartburn Clonidine (Clonidine 0.1 Mg Patch.Tdwk) 0.1 mg TRANSDERMA Tu@0900 [facility]; Protocol Last Admin: 03/17/24 11:19 Dose: 0.1 mg Documented By: BERTO Enoxaparin Sodium (Enoxaparin Sodium 40 Mg/0.4 Ml Syringe) 40 mg SUBCUT Q24H [facility] Last Admin: 02/16/24 19:27 Dose: 40 mg Documented By: SHLOMO Magnesium Hydroxide (Milk Of Magnesia 30 Ml Oral.Susp) 30 ml PO DAILY PRN PRN Reason: Constipation Melatonin (Melatonin 3 Mg Tablet) 6 mg PO BEDTIME PRN PRN Reason: Insomnia Last Admin: 03/09/24 21:43 Dose: 6 mg Documented By: NARCISA Miconazole Nitrate (Miconazole Nitrate 2% Powder 85 Gm Bottle) 1 appl TOPICAL BID [facility]; Protocol Last Admin: 03/23/24 08:20 Dose: 1 appl Documented By: YOU Nicotine Polacrilex (Nicotine Polacrilex 2 Mg Gum) 4 mg BUCCAL Q2H PRN PRN Reason: Nicotine Cravings Ondansetron HCl (Ondansetron Hcl 4 Mg/2 Ml Vial) 4 mg IVPUSH Q8H PRN PRN Reason: Nausea and Vomiting Last Admin: 03/02/24 18:44 Dose: 4 mg Documented By: SEN Polyethylene Glycol (Polyethylene Glycol 3350 17 Gm Powd.Pack) 17 gm PO DAILY [facility] Last Admin: 03/23/24 08:21 Dose: 17 gm Documented By: YOU Quetiapine Fumarate (Quetiapine Fumarate 25 Mg Tablet) 25 mg PO ONCE PRN PRN Reason: about 45 min before eeg Last Admin: 02/17/24 09:40 Dose: 25 mg Documented By: SHLOMO Risperidone (Risperidone Oral Peg 1 Mg/Ml Solution) 0.5 mg PO BID [facility] Last Admin: 03/23/24 08:21 Dose: 0.5 mg Documented By: YOU Sodium Chloride (0.9 % Sodium Chloride Flush 3 Ml Syringe) 3 ml IVFLUSH QSHIFT [facility] Last Admin: 03/23/24 08:21 Dose: Not Given Documented By: YOU Non-Admin Reason: No IV access Trazodone HCl (Trazodone Hcl 25 Mg Halftab) 25 mg PO BEDTIME PRN PRN Reason: Insomnia Last Admin: 03/22/24 22:29 Dose: 25 mg Documented By: CHRIS Comments: requested for sleep Labs 02/15/24 06:10 02/15/24 06:10 Assessment and Plan (1) Cognitive and behavioral changes: Status: Acute Plan 83M PMH htn, unspecified dementia, admitted to [facility] 02/13/24 for FTT, not taking meds or food, transfered to medicine 02/14/24. 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 Nate Genao and her phone number is [phone] to be contacted for any updates. Quality Stroke Does the patient have a stroke diagnosis?: No VTE Prior VTE?: No VTE Risk Level:: Medical - moderate - high VTE Device Contraindication: Treatment Not Indicated VTE Drug Contraindication: N/A - Med Ordered
[2024-03-23 15:28] VITALS: BP 164/78; PULSE 108; RESP 16; TEMP 37.3; O2SAT 90
--- NOTE | 2024-03-23 15:36 | MHC.CM.PN ---
EMR reviewed and per MD rounds, pt is not medically cleared for discharge due to awaiting conservatorship and LTC placement.
[2024-03-23 20:00] VITALS: BP 161/80; PULSE 117; RESP 20; TEMP 37.1; O2SAT 94
[2024-03-24 04:00] VITALS: BP 164/86; PULSE 79; RESP 16; TEMP 36.5; O2SAT 93
[2024-03-24 07:32] VITALS: BP 145/71; PULSE 72; RESP 18; TEMP 36.4; O2SAT 94
[2024-03-24] MEDS: polyethylene glycoL 3350 17 GM POWD.PACK PO (08:39)
[2024-03-24] MEDS: risperiDONE Oral Sol 1 MG/ML SOLUTION 0.5 MG PO ×2 (08:39→21:37)
[2024-03-24] MEDS: amLODIPine Besylate 5 MG TABLET PO (08:39)
[2024-03-24] MEDS: cloNIDine 0.1 MG PATCH.TDWK TRANSDERMA (08:44)
[2024-03-24] MEDS: Miconazole Nitrate 2% Powder 85 GM Bottle 1 APPL TOPICAL ×2 (08:52→21:38)
--- NOTE | 2024-03-24 15:30 | P.PNIM_ITS ---
Subjective Subjective Date of Service: 03/24/24 Interval History: seen and evaluated this morning looks comfortable no other events Review of Systems Review of Systems: Yes all other systems are reviewed and are negative Physical Exam 2 Vital Signs: Vital Signs: Last Vital Signs Temp 97.6 F 03/24/24 07:32 Pulse 72 03/24/24 07:32 Resp 18 03/24/24 07:32 BP 145/71 H 03/24/24 07:32 Pulse Ox 94 03/24/24 07:32 O2 Del Method Room Air 03/24/24 07:32 O2 Flow Rate 2 02/29/24 19:21 BMI result Body Mass Index 23.0 Const: Other: Constitutional : Awake, interactive, not in distress Neck : Normal inspection, Supple Cardiovascular : RRR, no JVP, no lower extremity edema Respiratory : good bilateral air entry, Gastrointestinal: soft, lax, Skin : Warm, Dry Neurological : Alert & disoriented to place and time, No focal deficit Objective Data Active Medications Acetaminophen (Acetaminophen 325 Mg Tablet) 650 mg PO Q6H PRN PRN Reason: Pain, Mild (Pain Scale 1-3), fever or headache Last Admin: 03/11/24 08:09 Dose: 650 mg Documented By: ADELINE Al Hydroxide/Mg Hydroxide (Magnesium Hydrox/Alum Hydrox 30 Ml Oral.Susp) 30 ml PO Q6H PRN PRN Reason: Constipation Amlodipine Besylate (Amlodipine Besylate 5 Mg Tablet) 5 mg PO DAILY [facility]; Protocol Last Admin: 03/24/24 08:39 Dose: 5 mg Documented By: BLAS Benzonatate (Benzonatate 100 Mg Capsule) 100 mg PO TID PRN PRN Reason: Cough Calcium Carbonate (Calcium Carbonate 750 Mg Tab.Chew) 750 mg PO Q4H PRN PRN Reason: Heartburn Clonidine (Clonidine 0.1 Mg Patch.Tdwk) 0.1 mg TRANSDERMA Tu@0900 [facility]; Protocol Last Admin: 03/24/24 08:44 Dose: 0.1 mg Documented By: BLAS Enoxaparin Sodium (Enoxaparin Sodium 40 Mg/0.4 Ml Syringe) 40 mg SUBCUT Q24H [facility] Last Admin: 02/16/24 19:27 Dose: 40 mg Documented By: SHLOMO Magnesium Hydroxide (Milk Of Magnesia 30 Ml Oral.Susp) 30 ml PO DAILY PRN PRN Reason: Constipation Melatonin (Melatonin 3 Mg Tablet) 6 mg PO BEDTIME PRN PRN Reason: Insomnia Last Admin: 03/09/24 21:43 Dose: 6 mg Documented By: NARCISA Miconazole Nitrate (Miconazole Nitrate 2% Powder 85 Gm Bottle) 1 appl TOPICAL BID [facility]; Protocol Last Admin: 03/24/24 08:52 Dose: 1 appl Documented By: BLAS Nicotine Polacrilex (Nicotine Polacrilex 2 Mg Gum) 4 mg BUCCAL Q2H PRN PRN Reason: Nicotine Cravings Ondansetron HCl (Ondansetron Hcl 4 Mg/2 Ml Vial) 4 mg IVPUSH Q8H PRN PRN Reason: Nausea and Vomiting Last Admin: 03/02/24 18:44 Dose: 4 mg Documented By: SEN Polyethylene Glycol (Polyethylene Glycol 3350 17 Gm Powd.Pack) 17 gm PO DAILY [facility] Last Admin: 03/24/24 08:39 Dose: 17 gm Documented By: BLAS Quetiapine Fumarate (Quetiapine Fumarate 25 Mg Tablet) 25 mg PO ONCE PRN PRN Reason: about 45 min before eeg Last Admin: 02/17/24 09:40 Dose: 25 mg Documented By: SHLOMO Risperidone (Risperidone Oral Peg 1 Mg/Ml Solution) 0.5 mg PO BID [facility] Last Admin: 03/24/24 08:39 Dose: 0.5 mg Documented By: BLAS Sodium Chloride (0.9 % Sodium Chloride Flush 3 Ml Syringe) 3 ml IVFLUSH QSHIFT [facility] Last Admin: 03/24/24 15:04 Dose: Not Given Documented By: PEDRO PABLO Non-Admin Reason: No Access Trazodone HCl (Trazodone Hcl 25 Mg Halftab) 25 mg PO BEDTIME PRN PRN Reason: Insomnia Last Admin: 03/22/24 22:29 Dose: 25 mg Documented By: CHRIS Comments: requested for sleep Labs 02/15/24 06:10 02/15/24 06:10 Assessment and Plan (1) Cognitive and behavioral changes: Status: Acute Plan 83M PMH htn, unspecified dementia, admitted to [facility] 02/13/24 for FTT, not taking meds or food, transfered to medicine 02/14/24. 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 Nate Genao and her phone number is [phone] to be contacted for any updates. Quality Stroke Does the patient have a stroke diagnosis?: No VTE Prior VTE?: No VTE Risk Level:: Medical - moderate - high VTE Device Contraindication: Treatment Not Indicated VTE Drug Contraindication: N/A - Med Ordered
[2024-03-24 16:00] VITALS: BP 158/78; PULSE 93; RESP 18; TEMP 36.5; O2SAT 96
[2024-03-24 16:37] VITALS: BP 152/77; RESP 20
[2024-03-24 19:35] VITALS: BP 184/88; PULSE 91; RESP 14; TEMP 37; O2SAT 92
[2024-03-24] MEDS: traZODone HCL 25 MG HALFTAB PO (21:37)
[2024-03-24 23:56] VITALS: BP 140/73; PULSE 90; RESP 16; TEMP 37.1; O2SAT 89
[2024-03-25 04:00] VITALS: BP 117/67; PULSE 80; RESP 20; TEMP 36.6; O2SAT 91
--- NOTE | 2024-03-25 07:50 | MHC.CM.PN ---
The process for obtaining Conservatorship is on-going. CM will follow.
[2024-03-25 08:00] VITALS: BP 153/72; PULSE 90; RESP 18; TEMP 36.3; O2SAT 96
[2024-03-25] MEDS: polyethylene glycoL 3350 17 GM POWD.PACK PO (09:13)
[2024-03-25] MEDS: risperiDONE Oral Sol 1 MG/ML SOLUTION 0.5 MG PO ×2 (09:13→20:39)
[2024-03-25] MEDS: amLODIPine Besylate 5 MG TABLET PO (09:13)
[2024-03-25] MEDS: Miconazole Nitrate 2% Powder 85 GM Bottle 1 APPL TOPICAL ×2 (09:19→20:39)
--- NOTE | 2024-03-25 12:34 | HO.PM.IMPN ---
Subjective Subjective Date of Service: 03/25/24 Interval History: seen and evaluated this morning looks comfortable no other events Review of Systems Review of Systems: Yes all other systems are reviewed and are negative Physical Exam Vital Signs: Vital Signs: Last Vital Signs Temp 97.4 F 03/25/24 08:00 Pulse 90 03/25/24 08:00 Resp 18 03/25/24 08:00 BP 153/72 H 03/25/24 08:00 Pulse Ox 96 03/25/24 08:00 O2 Del Method Room Air 03/25/24 08:00 O2 Flow Rate 2 02/29/24 19:21 BMI result Body Mass Index 23.0 Const: Other: Constitutional : Awake, interactive, not in distress Neck : Normal inspection, Supple Cardiovascular : RRR, no JVP, no lower extremity edema Respiratory : good bilateral air entry, Gastrointestinal: soft, lax, Skin : Warm, Dry Neurological : Alert & disoriented to place and time, No focal deficit Objective Data Active Medications Acetaminophen (Acetaminophen 325 Mg Tablet) 650 mg PO Q6H PRN PRN Reason: Pain, Mild (Pain Scale 1-3), fever or headache Last Admin: 03/11/24 08:09 Dose: 650 mg Documented By: ADELINE Al Hydroxide/Mg Hydroxide (Magnesium Hydrox/Alum Hydrox 30 Ml Oral.Susp) 30 ml PO Q6H PRN PRN Reason: Constipation Amlodipine Besylate (Amlodipine Besylate 5 Mg Tablet) 5 mg PO DAILY [facility]; Protocol Last Admin: 03/25/24 09:13 Dose: 5 mg Documented By: DOBROB Benzonatate (Benzonatate 100 Mg Capsule) 100 mg PO TID PRN PRN Reason: Cough Calcium Carbonate (Calcium Carbonate 750 Mg Tab.Chew) 750 mg PO Q4H PRN PRN Reason: Heartburn Clonidine (Clonidine 0.1 Mg Patch.Tdwk) 0.1 mg TRANSDERMA Tu@0900 [facility]; Protocol Last Admin: 03/24/24 08:44 Dose: 0.1 mg Documented By: BLAS Enoxaparin Sodium (Enoxaparin Sodium 40 Mg/0.4 Ml Syringe) 40 mg SUBCUT Q24H [facility] Last Admin: 02/16/24 19:27 Dose: 40 mg Documented By: SHLOMO Guaifenesin (Guaifenesin La 600 Mg Tab.Er.12h) 600 mg PO BID [facility] Stop: 03/28/24 08:59 Last Admin: 03/25/24 09:20 Dose: Not Given Documented By: BAHMAN Non-Admin Reason: unable to crush medication Magnesium Hydroxide (Milk Of Magnesia 30 Ml Oral.Susp) 30 ml PO DAILY PRN PRN Reason: Constipation Melatonin (Melatonin 3 Mg Tablet) 6 mg PO BEDTIME PRN PRN Reason: Insomnia Last Admin: 03/09/24 21:43 Dose: 6 mg Documented By: NARCISA Miconazole Nitrate (Miconazole Nitrate 2% Powder 85 Gm Bottle) 1 appl TOPICAL BID [facility]; Protocol Last Admin: 03/25/24 09:19 Dose: 1 appl Documented By: BAHMAN Nicotine Polacrilex (Nicotine Polacrilex 2 Mg Gum) 4 mg BUCCAL Q2H PRN PRN Reason: Nicotine Cravings Ondansetron HCl (Ondansetron Hcl 4 Mg/2 Ml Vial) 4 mg IVPUSH Q8H PRN PRN Reason: Nausea and Vomiting Last Admin: 03/02/24 18:44 Dose: 4 mg Documented By: SEN Polyethylene Glycol (Polyethylene Glycol 3350 17 Gm Powd.Pack) 17 gm PO DAILY [facility] Last Admin: 03/25/24 09:13 Dose: 17 gm Documented By: BAHMAN Quetiapine Fumarate (Quetiapine Fumarate 25 Mg Tablet) 25 mg PO ONCE PRN PRN Reason: about 45 min before eeg Last Admin: 02/17/24 09:40 Dose: 25 mg Documented By: SHLOMO Risperidone (Risperidone Oral Peg 1 Mg/Ml Solution) 0.5 mg PO BID [facility] Last Admin: 03/25/24 09:13 Dose: 0.5 mg Documented By: BAHMAN Sodium Chloride (0.9 % Sodium Chloride Flush 3 Ml Syringe) 3 ml IVFLUSH QSHIFT [facility] Last Admin: 03/25/24 09:19 Dose: Not Given Documented By: BAHMAN Non-Admin Reason: No Access Trazodone HCl (Trazodone Hcl 25 Mg Halftab) 25 mg PO BEDTIME PRN PRN Reason: Insomnia Last Admin: 03/24/24 21:37 Dose: 25 mg Documented By: NARCISA Labs 02/15/24 06:10 02/15/24 06:10 Assessment and Plan (1) Cognitive and behavioral changes: Status: Acute Plan 83M PMH htn, unspecified dementia, admitted to [facility] 02/13/24 for FTT, not taking meds or food, transfered to medicine 02/14/24. 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 Nate Genao and her phone number is [phone] to be contacted for any updates. Quality Stroke Does the patient have a stroke diagnosis?: No VTE Prior VTE?: No VTE Risk Level:: Medical - moderate - high VTE Device Contraindication: Treatment Not Indicated VTE Drug Contraindication: N/A - Med Ordered
--- NOTE | 2024-03-25 13:03 | MHC.CM.PN ---
The Notice of Hearing(for Conservatorship) and accompanying documents have been served to Patient.
[2024-03-25 16:00] VITALS: BP 153/76; PULSE 72; RESP 18; TEMP 36.3; O2SAT 96
[2024-03-25 20:00] VITALS: BP 163/75; PULSE 88; RESP 16; TEMP 36.2; O2SAT 95
[2024-03-25] MEDS: guaiFENesin LA 600 MG TAB.ER.12H PO (20:39)
[2024-03-25 23:58] VITALS: BP 159/83; PULSE 77; RESP 16; TEMP 36.1; O2SAT 93
[2024-03-26 03:35] VITALS: BP 154/70; PULSE 71; RESP 16; TEMP 36; O2SAT 92
[2024-03-26 08:00] VITALS: BP 117/62; PULSE 72; RESP 16; TEMP 36.6; O2SAT 96
[2024-03-26 08:03] VITALS: BP 117/62
[2024-03-26] MEDS: risperiDONE Oral Sol 1 MG/ML SOLUTION 0.5 MG PO ×2 (08:03→19:47)
[2024-03-26] MEDS: Miconazole Nitrate 2% Powder 85 GM Bottle 1 APPL TOPICAL ×2 (08:03→19:48)
[2024-03-26] MEDS: amLODIPine Besylate 5 MG TABLET PO (08:03)
[2024-03-26] MEDS: polyethylene glycoL 3350 17 GM POWD.PACK PO (08:03)
--- NOTE | 2024-03-26 12:14 | P.PNIM_ITS ---
Subjective Subjective Date of Service: 03/26/24 Interval History: seen and evaluated this morning comfortable no other events Review of Systems Review of Systems: Yes all other systems are reviewed and are negative Physical Exam 2 Vital Signs: Vital Signs: Last Vital Signs Temp 97.9 F 03/26/24 08:00 Pulse 72 03/26/24 08:00 Resp 16 03/26/24 08:00 BP 117/62 03/26/24 08:03 Pulse Ox 96 03/26/24 08:00 O2 Del Method Room Air 03/26/24 08:00 O2 Flow Rate 2 02/29/24 19:21 BMI result Body Mass Index 23.0 Const: Other: Constitutional : Awake, not in distress Neck : Normal inspection, Supple Cardiovascular : no JVP, no lower extremity edema Skin : Warm, Dry Neurological : Alert & disoriented to place and time, No focal deficit Objective Data Active Medications Acetaminophen (Acetaminophen 325 Mg Tablet) 650 mg PO Q6H PRN PRN Reason: Pain, Mild (Pain Scale 1-3), fever or headache Last Admin: 03/11/24 08:09 Dose: 650 mg Documented By: ADELINE Al Hydroxide/Mg Hydroxide (Magnesium Hydrox/Alum Hydrox 30 Ml Oral.Susp) 30 ml PO Q6H PRN PRN Reason: Constipation Amlodipine Besylate (Amlodipine Besylate 5 Mg Tablet) 5 mg PO DAILY [facility]; Protocol Last Admin: 03/26/24 08:03 Dose: 5 mg Documented By: FABIÁN Benzonatate (Benzonatate 100 Mg Capsule) 100 mg PO TID PRN PRN Reason: Cough Calcium Carbonate (Calcium Carbonate 750 Mg Tab.Chew) 750 mg PO Q4H PRN PRN Reason: Heartburn Clonidine (Clonidine 0.1 Mg Patch.Tdwk) 0.1 mg TRANSDERMA Tu@0900 [facility]; Protocol Last Admin: 03/24/24 08:44 Dose: 0.1 mg Documented By: BLAS Enoxaparin Sodium (Enoxaparin Sodium 40 Mg/0.4 Ml Syringe) 40 mg SUBCUT Q24H [facility] Last Admin: 02/16/24 19:27 Dose: 40 mg Documented By: SHLOMO Guaifenesin (Guaifenesin La 600 Mg Tab.Er.12h) 600 mg PO BID [facility] Stop: 03/28/24 08:59 Last Admin: 03/26/24 07:57 Dose: Not Given Documented By: FABIÁN Non-Admin Reason: unable to crush medication Magnesium Hydroxide (Milk Of Magnesia 30 Ml Oral.Susp) 30 ml PO DAILY PRN PRN Reason: Constipation Melatonin (Melatonin 3 Mg Tablet) 6 mg PO BEDTIME PRN PRN Reason: Insomnia Last Admin: 03/09/24 21:43 Dose: 6 mg Documented By: NARCISA Miconazole Nitrate (Miconazole Nitrate 2% Powder 85 Gm Bottle) 1 appl TOPICAL BID [facility]; Protocol Last Admin: 03/26/24 08:03 Dose: 1 appl Documented By: FABIÁN Nicotine Polacrilex (Nicotine Polacrilex 2 Mg Gum) 4 mg BUCCAL Q2H PRN PRN Reason: Nicotine Cravings Ondansetron HCl (Ondansetron Hcl 4 Mg/2 Ml Vial) 4 mg IVPUSH Q8H PRN PRN Reason: Nausea and Vomiting Last Admin: 03/02/24 18:44 Dose: 4 mg Documented By: SEN Polyethylene Glycol (Polyethylene Glycol 3350 17 Gm Powd.Pack) 17 gm PO DAILY [facility] Last Admin: 03/26/24 08:03 Dose: 17 gm Documented By: FABIÁN Quetiapine Fumarate (Quetiapine Fumarate 25 Mg Tablet) 25 mg PO ONCE PRN PRN Reason: about 45 min before eeg Last Admin: 02/17/24 09:40 Dose: 25 mg Documented By: SHLOMO Risperidone (Risperidone Oral Peg 1 Mg/Ml Solution) 0.5 mg PO BID [facility] Last Admin: 03/26/24 08:03 Dose: 0.5 mg Documented By: FABIÁN Sodium Chloride (0.9 % Sodium Chloride Flush 3 Ml Syringe) 3 ml IVFLUSH QSHIFT [facility] Last Admin: 03/26/24 07:56 Dose: Not Given Documented By: FABIÁN Non-Admin Reason: No Access Trazodone HCl (Trazodone Hcl 25 Mg Halftab) 25 mg PO BEDTIME PRN PRN Reason: Insomnia Last Admin: 03/24/24 21:37 Dose: 25 mg Documented By: NARCISA Labs 02/15/24 06:10 02/15/24 06:10 Assessment and Plan (1) Cognitive and behavioral changes: Status: Acute Plan 83M PMH htn, unspecified dementia, admitted to [facility] 02/13/24 for FTT, not taking meds or food, transfered to medicine 02/14/24. 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 EEG showing general slowing but no seizure disorder CSF culture -ve, CJD negative IRONER OR PRESSER appreciated, NDD3 solids, thin liquids conjunctivitis completed course of polymixin/neomycin Hypertension Transdermal clonidine Amlodipine Mood disorder Risperidone, trazodone DVT prophylaxis with Lovenox Full Code reason for continued hospitalization: Safe dispo The patient HCP is his step-daughter Alcides can be reached on [phone] Patient sister name is Dr. Nate Genao and her phone number is [phone] to be contacted for any updates. Quality Stroke Does the patient have a stroke diagnosis?: No VTE Prior VTE?: No VTE Risk Level:: Medical - moderate - high VTE Device Contraindication: Treatment Not Indicated VTE Drug Contraindication: N/A - Med Ordered
[2024-03-26 16:00] VITALS: PULSE 72; RESP 18; TEMP 36.3; O2SAT 96
[2024-03-26 19:29] VITALS: BP 188/82; PULSE 91; RESP 14; TEMP 36.7; O2SAT 93
[2024-03-27 03:31] VITALS: BP 150/74; PULSE 78; RESP 16; TEMP 36.5; O2SAT 98
[2024-03-27 07:46] VITALS: BP 148/78; PULSE 72; RESP 20; TEMP 36.4; O2SAT 97
[2024-03-27] MEDS: Miconazole Nitrate 2% Powder 85 GM Bottle 1 APPL TOPICAL ×2 (08:21→22:13)
[2024-03-27] MEDS: risperiDONE Oral Sol 1 MG/ML SOLUTION 0.5 MG PO ×2 (08:21→22:13)
[2024-03-27] MEDS: amLODIPine Besylate 5 MG TABLET PO (08:21)
[2024-03-27] MEDS: polyethylene glycoL 3350 17 GM POWD.PACK PO (08:21)
--- NOTE | 2024-03-27 09:26 | HO.PM.IMPN ---
Subjective Subjective Date of Service: 03/27/24 Interval History: no complaints Physical Exam Vital Signs: Vital Signs: Last Vital Signs Temp 97.6 F 03/27/24 07:46 Pulse 72 03/27/24 07:46 Resp 20 03/27/24 07:46 BP 148/78 H 03/27/24 07:46 Pulse Ox 97 03/27/24 07:46 O2 Del Method Room Air 03/26/24 19:29 O2 Flow Rate 2 02/29/24 19:21 BMI result Body Mass Index 23.0 Const: Other: Constitutional : Awake, not in distress Neck : Normal inspection, Supple Cardiovascular : no JVP, no lower extremity edema Skin : Warm, Dry Neurological : Alert & disoriented to place and time, No focal deficit Objective Data Active Medications Acetaminophen (Acetaminophen 325 Mg Tablet) 650 mg PO Q6H PRN PRN Reason: Pain, Mild (Pain Scale 1-3), fever or headache Last Admin: 03/11/24 08:09 Dose: 650 mg Documented By: ADELINE Al Hydroxide/Mg Hydroxide (Magnesium Hydrox/Alum Hydrox 30 Ml Oral.Susp) 30 ml PO Q6H PRN PRN Reason: Constipation Amlodipine Besylate (Amlodipine Besylate 5 Mg Tablet) 5 mg PO DAILY [facility]; Protocol Last Admin: 03/27/24 08:21 Dose: 5 mg Documented By: SHLOMO Benzonatate (Benzonatate 100 Mg Capsule) 100 mg PO TID PRN PRN Reason: Cough Calcium Carbonate (Calcium Carbonate 750 Mg Tab.Chew) 750 mg PO Q4H PRN PRN Reason: Heartburn Clonidine (Clonidine 0.1 Mg Patch.Tdwk) 0.1 mg TRANSDERMA Tu@0900 [facility]; Protocol Last Admin: 03/24/24 08:44 Dose: 0.1 mg Documented By: BLAS Enoxaparin Sodium (Enoxaparin Sodium 40 Mg/0.4 Ml Syringe) 40 mg SUBCUT Q24H [facility] Last Admin: 02/16/24 19:27 Dose: 40 mg Documented By: SHLOMO Guaifenesin (Guaifenesin La 600 Mg Tab.Er.12h) 600 mg PO BID [facility] Stop: 03/28/24 08:59 Last Admin: 03/27/24 08:19 Dose: Not Given Documented By: SHLOMO Non-Admin Reason: Unable to crush, inability to swallow whole Magnesium Hydroxide (Milk Of Magnesia 30 Ml Oral.Susp) 30 ml PO DAILY PRN PRN Reason: Constipation Melatonin (Melatonin 3 Mg Tablet) 6 mg PO BEDTIME PRN PRN Reason: Insomnia Last Admin: 03/09/24 21:43 Dose: 6 mg Documented By: NARCISA Miconazole Nitrate (Miconazole Nitrate 2% Powder 85 Gm Bottle) 1 appl TOPICAL BID [facility]; Protocol Last Admin: 03/27/24 08:21 Dose: 1 appl Documented By: SHLOMO Nicotine Polacrilex (Nicotine Polacrilex 2 Mg Gum) 4 mg BUCCAL Q2H PRN PRN Reason: Nicotine Cravings Ondansetron HCl (Ondansetron Hcl 4 Mg/2 Ml Vial) 4 mg IVPUSH Q8H PRN PRN Reason: Nausea and Vomiting Last Admin: 03/02/24 18:44 Dose: 4 mg Documented By: SEN Polyethylene Glycol (Polyethylene Glycol 3350 17 Gm Powd.Pack) 17 gm PO DAILY [facility] Last Admin: 03/27/24 08:21 Dose: 17 gm Documented By: SHLOMO Quetiapine Fumarate (Quetiapine Fumarate 25 Mg Tablet) 25 mg PO ONCE PRN PRN Reason: about 45 min before eeg Last Admin: 02/17/24 09:40 Dose: 25 mg Documented By: SHLOMO Risperidone (Risperidone Oral Peg 1 Mg/Ml Solution) 0.5 mg PO BID [facility] Last Admin: 03/27/24 08:21 Dose: 0.5 mg Documented By: SHLOMO Sodium Chloride (0.9 % Sodium Chloride Flush 3 Ml Syringe) 3 ml IVFLUSH QSHIFT [facility] Last Admin: 03/27/24 08:21 Dose: Not Given Documented By: SHLOMO Non-Admin Reason: No Access Trazodone HCl (Trazodone Hcl 25 Mg Halftab) 25 mg PO BEDTIME PRN PRN Reason: Insomnia Last Admin: 03/24/24 21:37 Dose: 25 mg Documented By: NARCISA Labs 02/15/24 06:10 02/15/24 06:10 Assessment and Plan (1) Cognitive and behavioral changes: Status: Acute Plan 83M PMH htn, unspecified dementia, admitted [facility] 02/13/24 for FTT, not taking meds or food, transfered to medicine 02/14/24. 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 EEG showing general slowing but no seizure disorder CSF culture -ve, CJD negative FREIGHT AND PASSENGER AGENT appreciated, NDD3 solids, thin liquids conjunctivitis completed course of polymixin/neomycin Hypertension Transdermal clonidine Amlodipine Mood disorder Risperidone, trazodone DVT prophylaxis with Lovenox Full Code reason for continued hospitalization: Safe dispo The patient HCP is his step-daughter Alcides can be reached on [phone] Patient sister name is Dr. Nate Genao and her phone number is [phone] to be contacted for any updates. Quality Stroke Does the patient have a stroke diagnosis?: No VTE Prior VTE?: No VTE Risk Level:: Medical - moderate - high VTE Device Contraindication: Treatment Not Indicated VTE Drug Contraindication: N/A - Med Ordered
--- NOTE | 2024-03-27 10:21 | MHC.CM.PN ---
Per CM Director, Son and [id number] have expressed some interest in possibly becoming Patient's Conservator; hearing is scheduled for 04/08/2024. CM will follow.
--- NOTE | 2024-03-27 11:09 | MHC.CLN ---
F/U PO INTAKE: 50% X 6 MEALS DIETRX: CHOPPED WITH FORTIFIED ICE [employer]AM TID SUPPLEMENT PROVIDES 870 KCALS, 27 G PROTEIN REDNESS TO COCCYX CONTINUE TO MONITOR PO INTAKE AND ENCOURAGE SUPPLEMENTS WITH WEEKLY WEIGHTS R/T MALNUTRITION RD TO CONTINUE TO FOLLOW WEEKLY
[2024-03-27 11:16] VITALS: BP 164/75; PULSE 80; RESP 20; TEMP 36.6; O2SAT 96
[2024-03-27 15:46] VITALS: BP 139/78; PULSE 99; RESP 18; TEMP 36.9; O2SAT 93
[2024-03-27 20:00] VITALS: BP 167/76; PULSE 106; RESP 20; TEMP 36.8; O2SAT 92
[2024-03-27] MEDS: guaiFENesin LA 600 MG TAB.ER.12H PO (22:13)
[2024-03-27 23:46] VITALS: BP 143/79; PULSE 88; RESP 16; O2SAT 89
[2024-03-28 04:00] VITALS: BP 142/84; PULSE 76; RESP 16; TEMP 36.4; O2SAT 96
[2024-03-28 07:24] VITALS: BP 130/81; PULSE 78; RESP 17; TEMP 36.1; O2SAT 98
[2024-03-28] MEDS: amLODIPine Besylate 5 MG TABLET PO (09:48)
[2024-03-28] MEDS: risperiDONE Oral Sol 1 MG/ML SOLUTION 0.5 MG PO ×2 (09:49→19:32)
[2024-03-28] MEDS: Miconazole Nitrate 2% Powder 85 GM Bottle 1 APPL TOPICAL ×2 (09:49→19:33)
--- NOTE | 2024-03-28 10:13 | HO.PM.IMPN ---
Subjective Subjective Date of Service: 03/28/24 Interval History: no complaints Physical Exam Vital Signs: Vital Signs: Last Vital Signs Temp 96.9 F 03/28/24 07:24 Pulse 78 03/28/24 07:24 Resp 17 03/28/24 07:24 BP 130/81 03/28/24 07:24 Pulse Ox 98 03/28/24 07:24 O2 Del Method Nasal Cannula 03/28/24 07:24 O2 Flow Rate 2 03/28/24 07:24 BMI result Body Mass Index 23.0 Const: Other: Constitutional : Awake, not in distress Neck : Normal inspection, Supple Cardiovascular : no JVP, no lower extremity edema Skin : Warm, Dry Neurological : Alert & disoriented to place and time, No focal deficit Objective Data Active Medications Acetaminophen (Acetaminophen 325 Mg Tablet) 650 mg PO Q6H PRN PRN Reason: Pain, Mild (Pain Scale 1-3), fever or headache Last Admin: 03/11/24 08:09 Dose: 650 mg Documented By: ADELINE Al Hydroxide/Mg Hydroxide (Magnesium Hydrox/Alum Hydrox 30 Ml Oral.Susp) 30 ml PO Q6H PRN PRN Reason: Constipation Amlodipine Besylate (Amlodipine Besylate 5 Mg Tablet) 5 mg PO DAILY [facility]; Protocol Last Admin: 03/28/24 09:48 Dose: 5 mg Documented By: [place] Benzonatate (Benzonatate 100 Mg Capsule) 100 mg PO TID PRN PRN Reason: Cough Calcium Carbonate (Calcium Carbonate 750 Mg Tab.Chew) 750 mg PO Q4H PRN PRN Reason: Heartburn Clonidine (Clonidine 0.1 Mg Patch.Tdwk) 0.1 mg TRANSDERMA Tu@0900 [facility]; Protocol Last Admin: 03/24/24 08:44 Dose: 0.1 mg Documented By: BLAS Enoxaparin Sodium (Enoxaparin Sodium 40 Mg/0.4 Ml Syringe) 40 mg SUBCUT Q24H [facility] Last Admin: 02/16/24 19:27 Dose: 40 mg Documented By: SHLOMO Magnesium Hydroxide (Milk Of Magnesia 30 Ml Oral.Susp) 30 ml PO DAILY PRN PRN Reason: Constipation Melatonin (Melatonin 3 Mg Tablet) 6 mg PO BEDTIME PRN PRN Reason: Insomnia Last Admin: 03/09/24 21:43 Dose: 6 mg Documented By: NARCISA Miconazole Nitrate (Miconazole Nitrate 2% Powder 85 Gm Bottle) 1 appl TOPICAL BID [facility]; Protocol Last Admin: 03/28/24 09:49 Dose: 1 appl Documented By: BIB Nicotine Polacrilex (Nicotine Polacrilex 2 Mg Gum) 4 mg BUCCAL Q2H PRN PRN Reason: Nicotine Cravings Ondansetron HCl (Ondansetron Hcl 4 Mg/2 Ml Vial) 4 mg IVPUSH Q8H PRN PRN Reason: Nausea and Vomiting Last Admin: 03/02/24 18:44 Dose: 4 mg Documented By: SEN Polyethylene Glycol (Polyethylene Glycol 3350 17 Gm Powd.Pack) 17 gm PO DAILY [facility] Last Admin: 03/28/24 09:50 Dose: Not Given Documented By: BIB Non-Admin Reason: Patient Refused Quetiapine Fumarate (Quetiapine Fumarate 25 Mg Tablet) 25 mg PO ONCE PRN PRN Reason: about 45 min before eeg Last Admin: 02/17/24 09:40 Dose: 25 mg Documented By: SHLOMO Risperidone (Risperidone Oral Peg 1 Mg/Ml Solution) 0.5 mg PO BID [facility] Last Admin: 03/28/24 09:49 Dose: 0.5 mg Documented By: BIB Sodium Chloride (0.9 % Sodium Chloride Flush 3 Ml Syringe) 3 ml IVFLUSH QSHIFT [facility] Last Admin: 03/28/24 09:49 Dose: Not Given Documented By: BIB Non-Admin Reason: No Access Trazodone HCl (Trazodone Hcl 25 Mg Halftab) 25 mg PO BEDTIME PRN PRN Reason: Insomnia Last Admin: 03/24/24 21:37 Dose: 25 mg Documented By: NARCISA Labs 02/15/24 06:10 02/15/24 06:10 Assessment and Plan (1) Cognitive and behavioral changes: Status: Acute Plan 83M PMH htn, unspecified dementia, admitted to [facility] 02/13/24 for FTT, not taking meds or food, transfered to medicine 02/14/24. 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 EEG showing general slowing but no seizure disorder CSF culture -ve, CJD negative SHANK SKINNER appreciated, NDD3 solids, thin liquids conjunctivitis completed course of polymixin/neomycin Hypertension Transdermal clonidine Amlodipine Mood disorder Risperidone, trazodone DVT prophylaxis with Lovenox Full Code reason for continued hospitalization: Safe dispo The patient HCP is his step-daughter Alcides can be reached on [phone] Patient sister name is Dr. Nate Genao and her phone number is [phone] to be contacted for any updates. Quality Stroke Does the patient have a stroke diagnosis?: No VTE Prior VTE?: No VTE Risk Level:: Medical - moderate - high VTE Device Contraindication: Treatment Not Indicated VTE Drug Contraindication: N/A - Med Ordered
[2024-03-28 15:21] VITALS: BP 145/86; PULSE 75; RESP 17; TEMP 36.4; O2SAT 96
[2024-03-28 19:37] VITALS: BP 140/70; PULSE 102; RESP 15; TEMP 37.2; O2SAT 92
[2024-03-29 03:22] VITALS: BP 134/85; PULSE 83; RESP 15; TEMP 36.6; O2SAT 95
[2024-03-29 08:00] VITALS: BP 147/70; PULSE 70; RESP 20; TEMP 36.7; O2SAT 95
[2024-03-29] MEDS: risperiDONE Oral Sol 1 MG/ML SOLUTION 0.5 MG PO ×2 (08:53→21:36)
[2024-03-29] MEDS: polyethylene glycoL 3350 17 GM POWD.PACK PO (08:53)
[2024-03-29] MEDS: Miconazole Nitrate 2% Powder 85 GM Bottle 1 APPL TOPICAL ×2 (08:53→21:37)
[2024-03-29] MEDS: amLODIPine Besylate 5 MG TABLET PO (08:53)
--- NOTE | 2024-03-29 09:14 | P.PNIM_ITS ---
Subjective Subjective Date of Service: 03/29/24 Interval History: no complaints Physical Exam 2 Vital Signs: Vital Signs: Last Vital Signs Temp 98.0 F 03/29/24 08:00 Pulse 70 03/29/24 08:00 Resp 20 03/29/24 08:00 BP 147/70 H 03/29/24 08:00 Pulse Ox 95 03/29/24 08:00 O2 Del Method Room Air 03/29/24 08:00 O2 Flow Rate 2 03/28/24 07:24 BMI result Body Mass Index 23.0 Const: Other: Constitutional : Awake, not in distress Neck : Normal inspection, Supple Cardiovascular : no JVP, no lower extremity edema Skin : Warm, Dry Neurological : Alert & disoriented to place and time, No focal deficit Objective Data Active Medications Acetaminophen (Acetaminophen 325 Mg Tablet) 650 mg PO Q6H PRN PRN Reason: Pain, Mild (Pain Scale 1-3), fever or headache Last Admin: 03/11/24 08:09 Dose: 650 mg Documented By: ADELINE Al Hydroxide/Mg Hydroxide (Magnesium Hydrox/Alum Hydrox 30 Ml Oral.Susp) 30 ml PO Q6H PRN PRN Reason: Constipation Amlodipine Besylate (Amlodipine Besylate 5 Mg Tablet) 5 mg PO DAILY [facility]; Protocol Last Admin: 03/29/24 08:53 Dose: 5 mg Documented By: BIB Benzonatate (Benzonatate 100 Mg Capsule) 100 mg PO TID PRN PRN Reason: Cough Calcium Carbonate (Calcium Carbonate 750 Mg Tab.Chew) 750 mg PO Q4H PRN PRN Reason: Heartburn Clonidine (Clonidine 0.1 Mg Patch.Tdwk) 0.1 mg TRANSDERMA Tu@0900 [facility]; Protocol Last Admin: 03/24/24 08:44 Dose: 0.1 mg Documented By: BLAS Enoxaparin Sodium (Enoxaparin Sodium 40 Mg/0.4 Ml Syringe) 40 mg SUBCUT Q24H [facility] Last Admin: 02/16/24 19:27 Dose: 40 mg Documented By: SHLOMO Magnesium Hydroxide (Milk Of Magnesia 30 Ml Oral.Susp) 30 ml PO DAILY PRN PRN Reason: Constipation Melatonin (Melatonin 3 Mg Tablet) 6 mg PO BEDTIME PRN PRN Reason: Insomnia Last Admin: 03/09/24 21:43 Dose: 6 mg Documented By: NARCISA Miconazole Nitrate (Miconazole Nitrate 2% Powder 85 Gm Bottle) 1 appl TOPICAL BID [facility]; Protocol Last Admin: 03/29/24 08:53 Dose: 1 appl Documented By: BIB Nicotine Polacrilex (Nicotine Polacrilex 2 Mg Gum) 4 mg BUCCAL Q2H PRN PRN Reason: Nicotine Cravings Ondansetron HCl (Ondansetron Hcl 4 Mg/2 Ml Vial) 4 mg IVPUSH Q8H PRN PRN Reason: Nausea and Vomiting Last Admin: 03/02/24 18:44 Dose: 4 mg Documented By: SEN Polyethylene Glycol (Polyethylene Glycol 3350 17 Gm Powd.Pack) 17 gm PO DAILY [facility] Last Admin: 03/29/24 08:53 Dose: 17 gm Documented By: BIB Quetiapine Fumarate (Quetiapine Fumarate 25 Mg Tablet) 25 mg PO ONCE PRN PRN Reason: about 45 min before eeg Last Admin: 02/17/24 09:40 Dose: 25 mg Documented By: SHLOMO Risperidone (Risperidone Oral Peg 1 Mg/Ml Solution) 0.5 mg PO BID [facility] Last Admin: 03/29/24 08:53 Dose: 0.5 mg Documented By: BIB Sodium Chloride (0.9 % Sodium Chloride Flush 3 Ml Syringe) 3 ml IVFLUSH QSHIFT [facility] Last Admin: 03/29/24 07:05 Dose: Not Given Documented By: BIB Non-Admin Reason: No Access Trazodone HCl (Trazodone Hcl 25 Mg Halftab) 25 mg PO BEDTIME PRN PRN Reason: Insomnia Last Admin: 03/24/24 21:37 Dose: 25 mg Documented By: NARCISA Labs 02/15/24 06:10 02/15/24 06:10 Assessment and Plan (1) Cognitive and behavioral changes: Status: Acute Plan 83M PMH htn, unspecified dementia, admitted to [facility] 02/13/24 for FTT, not taking meds or food, transfered to medicine 02/14/24. 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 EEG showing general slowing but no seizure disorder CSF culture -ve, CJD negative PHYSICAL THERAPY AID appreciated, NDD3 solids, thin liquids conjunctivitis completed course of polymixin/neomycin Hypertension Transdermal clonidine Amlodipine Mood disorder Risperidone, trazodone DVT prophylaxis with Lovenox Full Code reason for continued hospitalization: Safe dispo The patient HCP is his step-daughter Alcides can be reached on [phone] Patient sister name is Dr. Nate Genao and her phone number is [phone] to be contacted for any updates. Quality Stroke Does the patient have a stroke diagnosis?: No VTE Prior VTE?: No VTE Risk Level:: Medical - moderate - high VTE Device Contraindication: Treatment Not Indicated VTE Drug Contraindication: N/A - Med Ordered
[2024-03-29 12:00] VITALS: BP 132/64; PULSE 73; RESP 20; TEMP 36.4; O2SAT 95
[2024-03-29 16:00] VITALS: BP 177/85; PULSE 77; RESP 17; TEMP 36.6; O2SAT 97
[2024-03-29 19:56] VITALS: BP 183/98; PULSE 98; RESP 14; TEMP 36.9; O2SAT 96
[2024-03-29 21:30] VITALS: BP 162/87
[2024-03-30 03:40] VITALS: BP 164/81; PULSE 78; RESP 16; TEMP 36.9; O2SAT 93
[2024-03-30 08:00] VITALS: BP 156/70; PULSE 84; RESP 16; TEMP 36.3; O2SAT 93
[2024-03-30 08:45] VITALS: BP 156/70
[2024-03-30] MEDS: polyethylene glycoL 3350 17 GM POWD.PACK PO (08:45)
[2024-03-30] MEDS: Miconazole Nitrate 2% Powder 85 GM Bottle 1 APPL TOPICAL ×2 (08:45→20:19)
[2024-03-30] MEDS: amLODIPine Besylate 5 MG TABLET PO (08:45)
[2024-03-30] MEDS: risperiDONE Oral Sol 1 MG/ML SOLUTION 0.5 MG PO ×2 (08:45→20:19)
--- NOTE | 2024-03-30 09:03 | HO.PM.IMPN ---
Subjective Subjective Date of Service: 03/30/24 Interval History: no complaints Physical Exam Vital Signs: Vital Signs: Last Vital Signs Temp 97.4 F 03/30/24 08:00 Pulse 84 03/30/24 08:00 Resp 16 03/30/24 08:00 BP 156/70 H 03/30/24 08:45 Pulse Ox 93 03/30/24 08:00 O2 Del Method Room Air 03/30/24 08:00 O2 Flow Rate 2 03/28/24 07:24 BMI result Body Mass Index 23.0 Const: Other: Constitutional : Awake, not in distress Neck : Normal inspection, Supple Cardiovascular : no JVP, no lower extremity edema Skin : Warm, Dry Neurological : Alert & disoriented to place and time, No focal deficit Objective Data Active Medications Acetaminophen (Acetaminophen 325 Mg Tablet) 650 mg PO Q6H PRN PRN Reason: Pain, Mild (Pain Scale 1-3), fever or headache Last Admin: 03/11/24 08:09 Dose: 650 mg Documented By: ADELINE Al Hydroxide/Mg Hydroxide (Magnesium Hydrox/Alum Hydrox 30 Ml Oral.Susp) 30 ml PO Q6H PRN PRN Reason: Constipation Amlodipine Besylate (Amlodipine Besylate 5 Mg Tablet) 5 mg PO DAILY [facility]; Protocol Last Admin: 03/30/24 08:45 Dose: 5 mg Documented By: FABIÁN Benzonatate (Benzonatate 100 Mg Capsule) 100 mg PO TID PRN PRN Reason: Cough Calcium Carbonate (Calcium Carbonate 750 Mg Tab.Chew) 750 mg PO Q4H PRN PRN Reason: Heartburn Clonidine (Clonidine 0.1 Mg Patch.Tdwk) 0.1 mg TRANSDERMA Tu@0900 [facility]; Protocol Last Admin: 03/24/24 08:44 Dose: 0.1 mg Documented By: BLAS Enoxaparin Sodium (Enoxaparin Sodium 40 Mg/0.4 Ml Syringe) 40 mg SUBCUT Q24H [facility] Last Admin: 02/16/24 19:27 Dose: 40 mg Documented By: SHLOMO Magnesium Hydroxide (Milk Of Magnesia 30 Ml Oral.Susp) 30 ml PO DAILY PRN PRN Reason: Constipation Melatonin (Melatonin 3 Mg Tablet) 6 mg PO BEDTIME PRN PRN Reason: Insomnia Last Admin: 03/09/24 21:43 Dose: 6 mg Documented By: NARCISA Miconazole Nitrate (Miconazole Nitrate 2% Powder 85 Gm Bottle) 1 appl TOPICAL BID [facility]; Protocol Last Admin: 03/30/24 08:45 Dose: 1 appl Documented By: FABIÁN Nicotine Polacrilex (Nicotine Polacrilex 2 Mg Gum) 4 mg BUCCAL Q2H PRN PRN Reason: Nicotine Cravings Ondansetron HCl (Ondansetron Hcl 4 Mg/2 Ml Vial) 4 mg IVPUSH Q8H PRN PRN Reason: Nausea and Vomiting Last Admin: 03/02/24 18:44 Dose: 4 mg Documented By: SEN Polyethylene Glycol (Polyethylene Glycol 3350 17 Gm Powd.Pack) 17 gm PO DAILY [facility] Last Admin: 03/30/24 08:45 Dose: 17 gm Documented By: FABIÁN Quetiapine Fumarate (Quetiapine Fumarate 25 Mg Tablet) 25 mg PO ONCE PRN PRN Reason: about 45 min before eeg Last Admin: 02/17/24 09:40 Dose: 25 mg Documented By: SHLOMO Risperidone (Risperidone Oral Epg 1 Mg/Ml Solution) 0.5 mg PO BID [facility] Last Admin: 03/30/24 08:45 Dose: 0.5 mg Documented By: FABIÁN Sodium Chloride (0.9 % Sodium Chloride Flush 3 Ml Syringe) 3 ml IVFLUSH QSHIFT [facility] Last Admin: 03/30/24 08:33 Dose: Not Given Documented By: FABIÁN Non-Admin Reason: No Access Trazodone HCl (Trazodone Hcl 25 Mg Halftab) 25 mg PO BEDTIME PRN PRN Reason: Insomnia Last Admin: 03/24/24 21:37 Dose: 25 mg Documented By: NARCISA Labs 02/15/24 06:10 02/15/24 06:10 Assessment and Plan (1) Cognitive and behavioral changes: Status: Acute Plan 83M PMH htn, unspecified dementia, admitted to [facility] 02/13/24 for FTT, not taking meds or food, transfered to medicine 02/14/24. 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 EEG showing general slowing but no seizure disorder CSF culture -ve, CJD negative RADIATION THERAPY TECHNICIAN appreciated, NDD3 solids, thin liquids conjunctivitis completed course of polymixin/neomycin Hypertension Transdermal clonidine Amlodipine Mood disorder Risperidone, trazodone DVT prophylaxis with Lovenox Full Code reason for continued hospitalization: Safe dispo The patient HCP is his step-daughter Alcides can be reached on [phone] Patient sister name is Dr. Nate Genao and her phone number is [phone] to be contacted for any updates. Quality Stroke Does the patient have a stroke diagnosis?: No VTE Prior VTE?: No VTE Risk Level:: Medical - moderate - high VTE Device Contraindication: Treatment Not Indicated VTE Drug Contraindication: N/A - Med Ordered
--- NOTE | 2024-03-30 09:54 | MHC.CLN ---
F/U PO INTAKE: VARIABLE RANGING FROM 0-100% DIETRX: CHOPPED WITH FORTIFIED ICE CREAM TID SUPPLEMENT PROVIDES 870 KCALS, 27 G PROTEIN REDNESS TO COCCYX CONTINUE TO MONITOR PO INTAKE AND ENCOURAGE SUPPLEMENTS WITH WEEKLY WEIGHTS R/T MALNUTRITION RD TO CONTINUE TO FOLLOW WEEKLY
--- NOTE | 2024-03-30 12:05 | MHC.CM.PN ---
CM continues to work on Conservatorship; hearing is 04/08/2024. CM will follow.
[2024-03-30 16:00] VITALS: BP 172/70; PULSE 100; RESP 18; TEMP 36.6; O2SAT 97
[2024-03-30 19:40] VITALS: BP 146/79; PULSE 110; RESP 20; TEMP 36.2; O2SAT 96
[2024-03-30 23:27] VITALS: BP 150/96; PULSE 86; RESP 20; TEMP 36.2; O2SAT 94
[2024-03-31 07:19] VITALS: BP 146/78; PULSE 82; RESP 18; TEMP 36.5; O2SAT 96
[2024-03-31 07:58] VITALS: BP 146/78
[2024-03-31] MEDS: Miconazole Nitrate 2% Powder 85 GM Bottle 1 APPL TOPICAL ×2 (07:58→20:43)
[2024-03-31] MEDS: risperiDONE Oral Sol 1 MG/ML SOLUTION 0.5 MG PO ×2 (07:58→20:40)
[2024-03-31] MEDS: polyethylene glycoL 3350 17 GM POWD.PACK PO (07:58)
[2024-03-31] MEDS: amLODIPine Besylate 5 MG TABLET PO (07:58)
[2024-03-31] MEDS: cloNIDine 0.1 MG PATCH.TDWK TRANSDERMA (08:04)
--- NOTE | 2024-03-31 08:46 | HO.PM.IMPN ---
Subjective Subjective Date of Service: 03/31/24 Interval History: no complaints Physical Exam Vital Signs: Vital Signs: Last Vital Signs Temp 97.7 F 03/31/24 07:19 Pulse 82 03/31/24 07:19 Resp 18 03/31/24 07:19 BP 146/78 H 03/31/24 07:58 Pulse Ox 96 03/31/24 07:19 O2 Del Method Room Air 03/31/24 07:19 O2 Flow Rate 2 03/28/24 07:24 BMI result Body Mass Index 23.0 Const: Other: Constitutional : Awake, not in distress Neck : Normal inspection, Supple Cardiovascular : no JVP, no lower extremity edema Skin : Warm, Dry Neurological : Alert & disoriented to place and time, No focal deficit Objective Data Active Medications Acetaminophen (Acetaminophen 325 Mg Tablet) 650 mg PO Q6H PRN PRN Reason: Pain, Mild (Pain Scale 1-3), fever or headache Last Admin: 03/11/24 08:09 Dose: 650 mg Documented By: ADELINE Al Hydroxide/Mg Hydroxide (Magnesium Hydrox/Alum Hydrox 30 Ml Oral.Susp) 30 ml PO Q6H PRN PRN Reason: Constipation Amlodipine Besylate (Amlodipine Besylate 5 Mg Tablet) 5 mg PO DAILY [facility]; Protocol Last Admin: 03/31/24 07:58 Dose: 5 mg Documented By: FABIÁN Benzonatate (Benzonatate 100 Mg Capsule) 100 mg PO TID PRN PRN Reason: Cough Calcium Carbonate (Calcium Carbonate 750 Mg Tab.Chew) 750 mg PO Q4H PRN PRN Reason: Heartburn Clonidine (Clonidine 0.1 Mg Patch.Tdwk) 0.1 mg TRANSDERMA Tu@0900 [facility]; Protocol Last Admin: 03/31/24 08:04 Dose: 0.1 mg Documented By: FABIÁN Enoxaparin Sodium (Enoxaparin Sodium 40 Mg/0.4 Ml Syringe) 40 mg SUBCUT Q24H [facility] Last Admin: 02/16/24 19:27 Dose: 40 mg Documented By: SHLOMO Magnesium Hydroxide (Milk Of Magnesia 30 Ml Oral.Susp) 30 ml PO DAILY PRN PRN Reason: Constipation Melatonin (Melatonin 3 Mg Tablet) 6 mg PO BEDTIME PRN PRN Reason: Insomnia Last Admin: 03/09/24 21:43 Dose: 6 mg Documented By: NARCISA Miconazole Nitrate (Miconazole Nitrate 2% Powder 85 Gm Bottle) 1 appl TOPICAL BID [facility]; Protocol Last Admin: 03/31/24 07:58 Dose: 1 appl Documented By: FABIÁN Nicotine Polacrilex (Nicotine Polacrilex 2 Mg Gum) 4 mg BUCCAL Q2H PRN PRN Reason: Nicotine Cravings Ondansetron HCl (Ondansetron Hcl 4 Mg/2 Ml Vial) 4 mg IVPUSH Q8H PRN PRN Reason: Nausea and Vomiting Last Admin: 03/02/24 18:44 Dose: 4 mg Documented By: SEN Polyethylene Glycol (Polyethylene Glycol 3350 17 Gm Powd.Pack) 17 gm PO DAILY [facility] Last Admin: 03/31/24 07:58 Dose: 17 gm Documented By: FABIÁN Quetiapine Fumarate (Quetiapine Fumarate 25 Mg Tablet) 25 mg PO ONCE PRN PRN Reason: about 45 min before eeg Last Admin: 02/17/24 09:40 Dose: 25 mg Documented By: SHLOMO Risperidone (Risperidone Oral Peg 1 Mg/Ml Solution) 0.5 mg PO BID [facility] Last Admin: 03/31/24 07:58 Dose: 0.5 mg Documented By: FABIÁN Sodium Chloride (0.9 % Sodium Chloride Flush 3 Ml Syringe) 3 ml IVFLUSH QSHIFT [facility] Last Admin: 03/31/24 07:58 Dose: Not Given Documented By: FABIÁN Non-Admin Reason: No Access Trazodone HCl (Trazodone Hcl 25 Mg Halftab) 25 mg PO BEDTIME PRN PRN Reason: Insomnia Last Admin: 03/24/24 21:37 Dose: 25 mg Documented By: NARCISA Labs 02/15/24 06:10 02/15/24 06:10 Assessment and Plan (1) Cognitive and behavioral changes: Status: Acute Plan 83M PMH htn, unspecified dementia, admitted to [facility] 02/13/24 for FTT, not taking meds or food, transfered to medicine 02/14/24. 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 EEG showing general slowing but no seizure disorder CSF culture -ve, CJD negative HASH SLINGER appreciated, NDD3 solids, thin liquids conjunctivitis completed course of polymixin/neomycin Hypertension Transdermal clonidine Amlodipine Mood disorder Risperidone, trazodone DVT prophylaxis with Lovenox Full Code reason for continued hospitalization: Safe dispo The patient HCP is his step-daughter Alcides can be reached on [phone] Patient sister name is Dr. Nate Genao and her phone number is [phone] to be contacted for any updates. Quality Stroke Does the patient have a stroke diagnosis?: No VTE Prior VTE?: No VTE Risk Level:: Medical - moderate - high VTE Device Contraindication: Treatment Not Indicated VTE Drug Contraindication: N/A - Med Ordered
[2024-03-31 15:27] VITALS: BP 180/82; PULSE 92; RESP 20; TEMP 37; O2SAT 96
[2024-03-31 19:20] VITALS: BP 144/81; PULSE 92; RESP 18; TEMP 36.2; O2SAT 96
[2024-03-31] MEDS: Melatonin 3 MG TABLET 6 MG PO (20:39)
[2024-04-01 03:41] VITALS: BP 120/60; PULSE 84; RESP 16; TEMP 36.2; O2SAT 98
[2024-04-01] MEDS: amLODIPine Besylate 5 MG TABLET PO (08:41)
[2024-04-01] MEDS: polyethylene glycoL 3350 17 GM POWD.PACK PO (08:41)
[2024-04-01] MEDS: risperiDONE Oral Sol 1 MG/ML SOLUTION 0.5 MG PO ×2 (08:41→19:48)
[2024-04-01] MEDS: Miconazole Nitrate 2% Powder 85 GM Bottle 1 APPL TOPICAL ×2 (08:44→19:49)
--- NOTE | 2024-04-01 08:44 | MHC.CM.PN ---
Conservatorship hearing is 04/08/2024; CM will follow.
[2024-04-01 08:45] VITALS: BP 161/72; PULSE 60; RESP 20; TEMP 36.1; O2SAT 97
--- NOTE | 2024-04-01 11:49 | P.PNIM_ITS ---
Subjective Subjective Date of Service: 04/01/24 Interval History: seen and evaluated this morning sleepy, comfortable no other events Review of Systems No complaints Physical Exam 2 Vital Signs: Vital Signs: Last Vital Signs Temp 97.0 F 04/01/24 08:45 Pulse 60 04/01/24 08:45 Resp 20 04/01/24 08:45 BP 161/72 H 04/01/24 08:45 Pulse Ox 97 04/01/24 08:45 O2 Del Method Room Air 04/01/24 08:45 O2 Flow Rate 2 03/28/24 07:24 BMI result Body Mass Index 23.0 Const: Other: Constitutional : Awake, not in distress Neck : Normal inspection, Supple Cardiovascular : no JVP, no lower extremity edema Skin : Warm, Dry Neurological : Alert & disoriented to place and time, No focal deficit Objective Data Active Medications Acetaminophen (Acetaminophen 325 Mg Tablet) 650 mg PO Q6H PRN PRN Reason: Pain, Mild (Pain Scale 1-3), fever or headache Last Admin: 03/11/24 08:09 Dose: 650 mg Documented By: ADELINE Al Hydroxide/Mg Hydroxide (Magnesium Hydrox/Alum Hydrox 30 Ml Oral.Susp) 30 ml PO Q6H PRN PRN Reason: Constipation Amlodipine Besylate (Amlodipine Besylate 5 Mg Tablet) 5 mg PO DAILY [facility]; Protocol Last Admin: 04/01/24 08:41 Dose: 5 mg Documented By: DESHAWN Benzonatate (Benzonatate 100 Mg Capsule) 100 mg PO TID PRN PRN Reason: Cough Calcium Carbonate (Calcium Carbonate 750 Mg Tab.Chew) 750 mg PO Q4H PRN PRN Reason: Heartburn Clonidine (Clonidine 0.1 Mg Patch.Tdwk) 0.1 mg TRANSDERMA Tu@0900 [facility]; Protocol Last Admin: 03/31/24 08:04 Dose: 0.1 mg Documented By: FABIÁN Enoxaparin Sodium (Enoxaparin Sodium 40 Mg/0.4 Ml Syringe) 40 mg SUBCUT Q24H [facility] Last Admin: 02/16/24 19:27 Dose: 40 mg Documented By: SHLOMO Magnesium Hydroxide (Milk Of Magnesia 30 Ml Oral.Susp) 30 ml PO DAILY PRN PRN Reason: Constipation Melatonin (Melatonin 3 Mg Tablet) 6 mg PO BEDTIME PRN PRN Reason: Insomnia Last Admin: 03/31/24 20:39 Dose: 6 mg Documented By: NARCISA Miconazole Nitrate (Miconazole Nitrate 2% Powder 85 Gm Bottle) 1 appl TOPICAL BID [facility]; Protocol Last Admin: 04/01/24 08:44 Dose: 1 appl Documented By: DESHAWN Nicotine Polacrilex (Nicotine Polacrilex 2 Mg Gum) 4 mg BUCCAL Q2H PRN PRN Reason: Nicotine Cravings Ondansetron HCl (Ondansetron Hcl 4 Mg/2 Ml Vial) 4 mg IVPUSH Q8H PRN PRN Reason: Nausea and Vomiting Last Admin: 03/02/24 18:44 Dose: 4 mg Documented By: SEN Polyethylene Glycol (Polyethylene Glycol 3350 17 Gm Powd.Pack) 17 gm PO DAILY [facility] Last Admin: 04/01/24 08:41 Dose: 17 gm Documented By: DESHAWN Quetiapine Fumarate (Quetiapine Fumarate 25 Mg Tablet) 25 mg PO ONCE PRN PRN Reason: about 45 min before eeg Last Admin: 02/17/24 09:40 Dose: 25 mg Documented By: SHLOMO Risperidone (Risperidone Oral Peg 1 Mg/Ml Solution) 0.5 mg PO BID [facility] Last Admin: 04/01/24 08:41 Dose: 0.5 mg Documented By: DESHAWN Sodium Chloride (0.9 % Sodium Chloride Flush 3 Ml Syringe) 3 ml IVFLUSH QSHIFT [facility] Last Admin: 04/01/24 08:44 Dose: Not Given Documented By: DESHAWN Non-Admin Reason: Medication Discontinued Trazodone HCl (Trazodone Hcl 25 Mg Halftab) 25 mg PO BEDTIME PRN PRN Reason: Insomnia Last Admin: 03/24/24 21:37 Dose: 25 mg Documented By: NARCISA Labs 02/15/24 06:10 02/15/24 06:10 Assessment and Plan (1) Cognitive and behavioral changes: Status: Acute Plan 83M PMH htn, unspecified dementia, admitted to [facility] 02/13/24 for FTT, not taking meds or food, transfered to medicine 02/14/24. 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 EEG showing general slowing but no seizure disorder DIE PRESSER appreciated, NDD3 solids, thin liquids conjunctivitis completed course of polymixin/neomycin Hypertension Transdermal clonidine Amlodipine Mood disorder Risperidone, trazodone DVT prophylaxis with Lovenox Full Code reason for continued hospitalization: Safe dispo The patient HCP is his step-daughter Alcides can be reached on [phone] Patient sister name is Dr. Nate Genao and her phone number is [phone] to be contacted for any updates. Quality Stroke Does the patient have a stroke diagnosis?: No VTE Prior VTE?: No VTE Risk Level:: Medical - moderate - high VTE Device Contraindication: Treatment Not Indicated VTE Drug Contraindication: N/A - Med Ordered
--- NOTE | 2024-04-01 13:04 | MHC.CM.PN ---
CM received a call from Patient's HCP/Alcides @ [phone] and updated her on the upcoming Conservatorship hearing. KORI has asked MD to call Alcides with a brief clinical update. KORI will follow.
[2024-04-01 15:47] VITALS: BP 146/74; PULSE 76; RESP 20; TEMP 36.5; O2SAT 95
[2024-04-01 19:06] VITALS: BP 138/76; PULSE 83; RESP 16; TEMP 36.6; O2SAT 94
[2024-04-01] MEDS: Melatonin 3 MG TABLET 6 MG PO (19:48)
[2024-04-01 21:24] VITALS: RESP 14
[2024-04-02 03:33] VITALS: BP 138/86; PULSE 66; RESP 16; TEMP 36.7; O2SAT 96
[2024-04-02] MEDS: polyethylene glycoL 3350 17 GM POWD.PACK PO (08:51)
[2024-04-02] MEDS: risperiDONE Oral Sol 1 MG/ML SOLUTION 0.5 MG PO ×2 (08:51→20:26)
[2024-04-02] MEDS: amLODIPine Besylate 5 MG TABLET PO (08:52)
[2024-04-02] MEDS: Miconazole Nitrate 2% Powder 85 GM Bottle 1 APPL TOPICAL ×2 (08:52→20:32)
[2024-04-02 09:07] VITALS: BP 177/81; PULSE 65; RESP 16; TEMP 36.4; O2SAT 95
--- NOTE | 2024-04-02 13:05 | P.PNIM_ITS ---
Subjective Subjective Date of Service: 04/02/24 Interval History: seen and evaluated this morning sleepy, comfortable no other events Physical Exam 2 Vital Signs: Vital Signs: Last Vital Signs Temp 97.5 F 04/02/24 09:07 Pulse 65 04/02/24 09:07 Resp 16 04/02/24 09:07 BP 177/81 H 04/02/24 09:07 Pulse Ox 95 04/02/24 09:07 O2 Del Method Room Air 04/02/24 09:07 O2 Flow Rate 2 03/28/24 07:24 BMI result Body Mass Index 23.0 Const: Other: Constitutional : Awake, not in distress Neck : Normal inspection, Supple Cardiovascular : no JVP, no lower extremity edema Skin : Warm, Dry Neurological : Alert & disoriented to place and time, No focal deficit Objective Data Active Medications Acetaminophen (Acetaminophen 325 Mg Tablet) 650 mg PO Q6H PRN PRN Reason: Pain, Mild (Pain Scale 1-3), fever or headache Last Admin: 03/11/24 08:09 Dose: 650 mg Documented By: ADELINE Al Hydroxide/Mg Hydroxide (Magnesium Hydrox/Alum Hydrox 30 Ml Oral.Susp) 30 ml PO Q6H PRN PRN Reason: Constipation Amlodipine Besylate (Amlodipine Besylate 5 Mg Tablet) 5 mg PO DAILY [facility]; Protocol Last Admin: 04/02/24 08:52 Dose: 5 mg Documented By: FIONA Benzonatate (Benzonatate 100 Mg Capsule) 100 mg PO TID PRN PRN Reason: Cough Calcium Carbonate (Calcium Carbonate 750 Mg Tab.Chew) 750 mg PO Q4H PRN PRN Reason: Heartburn Clonidine (Clonidine 0.1 Mg Patch.Tdwk) 0.1 mg TRANSDERMA Tu@0900 [facility]; Protocol Last Admin: 03/31/24 08:04 Dose: 0.1 mg Documented By: FABIÁN Enoxaparin Sodium (Enoxaparin Sodium 40 Mg/0.4 Ml Syringe) 40 mg SUBCUT Q24H [facility] Last Admin: 02/16/24 19:27 Dose: 40 mg Documented By: SHLOMO Magnesium Hydroxide (Milk Of Magnesia 30 Ml Oral.Susp) 30 ml PO DAILY PRN PRN Reason: Constipation Melatonin (Melatonin 3 Mg Tablet) 6 mg PO BEDTIME PRN PRN Reason: Insomnia Last Admin: 04/01/24 19:48 Dose: 6 mg Documented By: SIMONA Miconazole Nitrate (Miconazole Nitrate 2% Powder 85 Gm Bottle) 1 appl TOPICAL BID [facility]; Protocol Last Admin: 04/02/24 08:52 Dose: 1 appl Documented By: FIONA Nicotine Polacrilex (Nicotine Polacrilex 2 Mg Gum) 4 mg BUCCAL Q2H PRN PRN Reason: Nicotine Cravings Ondansetron HCl (Ondansetron Hcl 4 Mg/2 Ml Vial) 4 mg IVPUSH Q8H PRN PRN Reason: Nausea and Vomiting Last Admin: 03/02/24 18:44 Dose: 4 mg Documented By: SEN Polyethylene Glycol (Polyethylene Glycol 3350 17 Gm Powd.Pack) 17 gm PO DAILY [facility] Last Admin: 04/02/24 08:51 Dose: 17 gm Documented By: FIONA Quetiapine Fumarate (Quetiapine Fumarate 25 Mg Tablet) 25 mg PO ONCE PRN PRN Reason: about 45 min before eeg Last Admin: 02/17/24 09:40 Dose: 25 mg Documented By: SHLOMO Risperidone (Risperidone Oral Peg 1 Mg/Ml Solution) 0.5 mg PO BID [facility] Last Admin: 04/02/24 08:51 Dose: 0.5 mg Documented By: FIONA Trazodone HCl (Trazodone Hcl 25 Mg Halftab) 25 mg PO BEDTIME PRN PRN Reason: Insomnia Last Admin: 03/24/24 21:37 Dose: 25 mg Documented By: LUDYMAR Labs 02/15/24 06:10 02/15/24 06:10 Assessment and Plan (1) Cognitive and behavioral changes: Status: Acute Plan 83M PMH htn, unspecified dementia, admitted to [facility] 02/13/24 for FTT, not taking meds or food, transfered to medicine 02/14/24. 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 Nate Genao and her phone number is [phone] to be contacted for any updates. Quality Stroke Does the patient have a stroke diagnosis?: No VTE Prior VTE?: No VTE Risk Level:: Medical - moderate - high VTE Device Contraindication: Treatment Not Indicated VTE Drug Contraindication: N/A - Med Ordered
[2024-04-02 16:00] VITALS: BP 169/85; PULSE 85; RESP 18; TEMP 36.6; O2SAT 96
[2024-04-02 19:39] VITALS: BP 169/81; PULSE 85; RESP 15; TEMP 36.4; O2SAT 96
[2024-04-02] MEDS: traZODone HCL 25 MG HALFTAB PO (20:26)
[2024-04-03 04:00] VITALS: BP 151/85; PULSE 84; RESP 15; TEMP 36.1; O2SAT 97
[2024-04-03] MEDS: risperiDONE Oral Sol 1 MG/ML SOLUTION 0.5 MG PO ×2 (08:18→20:45)
[2024-04-03] MEDS: polyethylene glycoL 3350 17 GM POWD.PACK PO (08:18)
[2024-04-03] MEDS: Miconazole Nitrate 2% Powder 85 GM Bottle 1 APPL TOPICAL ×2 (08:19→20:48)
[2024-04-03] MEDS: amLODIPine Besylate 5 MG TABLET PO (08:19)
[2024-04-03 08:22] VITALS: BP 159/81; PULSE 74; RESP 19; TEMP 36.3; O2SAT 97
--- NOTE | 2024-04-03 12:55 | MHC.CM.PN ---
PT AWAITING CONSERVATORSHIP HEARING AND SUBSEQUENT LTC PLACEMENT REFERRALS WILL BE MADE ONCE APPROPRIATE DOCUMENTATION IS OBTAINED
[2024-04-03 15:25] VITALS: BP 142/82; PULSE 85; RESP 18; TEMP 36.7; O2SAT 97
--- NOTE | 2024-04-03 15:29 | P.PNIM_ITS ---
Subjective Subjective Date of Service: 04/03/24 Interval History: seen and evaluated this morning sleepy, comfortable no other events Physical Exam 2 Vital Signs: Vital Signs: Last Vital Signs Temp 98.1 F 04/03/24 15:25 Pulse 85 04/03/24 15:25 Resp 18 04/03/24 15:25 BP 142/82 H 04/03/24 15:25 Pulse Ox 97 04/03/24 15:25 O2 Del Method Room Air 04/03/24 15:25 O2 Flow Rate 2 03/28/24 07:24 BMI result Body Mass Index 23.0 Const: Other: Constitutional : Awake, not in distress Neck : Normal inspection, Supple Cardiovascular : no JVP, no lower extremity edema Skin : Warm, Dry Neurological : Alert & disoriented to place and time, No focal deficit Objective Data Active Medications Acetaminophen (Acetaminophen 325 Mg Tablet) 650 mg PO Q6H PRN PRN Reason: Pain, Mild (Pain Scale 1-3), fever or headache Last Admin: 03/11/24 08:09 Dose: 650 mg Documented By: ADELINE Al Hydroxide/Mg Hydroxide (Magnesium Hydrox/Alum Hydrox 30 Ml Oral.Susp) 30 ml PO Q6H PRN PRN Reason: Constipation Amlodipine Besylate (Amlodipine Besylate 5 Mg Tablet) 5 mg PO DAILY [facility]; Protocol Last Admin: 04/03/24 08:19 Dose: 5 mg Documented By: FIONA Benzonatate (Benzonatate 100 Mg Capsule) 100 mg PO TID PRN PRN Reason: Cough Calcium Carbonate (Calcium Carbonate 750 Mg Tab.Chew) 750 mg PO Q4H PRN PRN Reason: Heartburn Clonidine (Clonidine 0.1 Mg Patch.Tdwk) 0.1 mg TRANSDERMA Tu@0900 [facility]; Protocol Last Admin: 03/31/24 08:04 Dose: 0.1 mg Documented By: FABIÁN Enoxaparin Sodium (Enoxaparin Sodium 40 Mg/0.4 Ml Syringe) 40 mg SUBCUT Q24H [facility] Last Admin: 02/16/24 19:27 Dose: 40 mg Documented By: SHLOMO Magnesium Hydroxide (Milk Of Magnesia 30 Ml Oral.Susp) 30 ml PO DAILY PRN PRN Reason: Constipation Melatonin (Melatonin 3 Mg Tablet) 6 mg PO BEDTIME PRN PRN Reason: Insomnia Last Admin: 04/01/24 19:48 Dose: 6 mg Documented By: SIMONA Miconazole Nitrate (Miconazole Nitrate 2% Powder 85 Gm Bottle) 1 appl TOPICAL BID [facility]; Protocol Last Admin: 04/03/24 08:19 Dose: 1 appl Documented By: FIONA Nicotine Polacrilex (Nicotine Polacrilex 2 Mg Gum) 4 mg BUCCAL Q2H PRN PRN Reason: Nicotine Cravings Ondansetron HCl (Ondansetron Hcl 4 Mg/2 Ml Vial) 4 mg IVPUSH Q8H PRN PRN Reason: Nausea and Vomiting Last Admin: 03/02/24 18:44 Dose: 4 mg Documented By: SEN Polyethylene Glycol (Polyethylene Glycol 3350 17 Gm Powd.Pack) 17 gm PO DAILY [facility] Last Admin: 04/03/24 08:18 Dose: 17 gm Documented By: FIONA Quetiapine Fumarate (Quetiapine Fumarate 25 Mg Tablet) 25 mg PO ONCE PRN PRN Reason: about 45 min before eeg Last Admin: 02/17/24 09:40 Dose: 25 mg Documented By: SHLOMO Risperidone (Risperidone Oral Peg 1 Mg/Ml Solution) 0.5 mg PO BID [facility] Last Admin: 04/03/24 08:18 Dose: 0.5 mg Documented By: FIONA Trazodone HCl (Trazodone Hcl 25 Mg Halftab) 25 mg PO BEDTIME PRN PRN Reason: Insomnia Last Admin: 04/02/24 20:26 Dose: 25 mg Documented By: MARILEEILM Labs 02/15/24 06:10 02/15/24 06:10 Assessment and Plan (1) Cognitive and behavioral changes: Status: Acute Plan 83M PMH htn, unspecified dementia, admitted to [facility] 02/13/24 for FTT, not taking meds or food, transfered to medicine 02/14/24. 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 Nate Genao and her phone number is [phone] to be contacted for any updates. Quality Stroke Does the patient have a stroke diagnosis?: No VTE Prior VTE?: No VTE Risk Level:: Medical - moderate - high VTE Device Contraindication: Treatment Not Indicated VTE Drug Contraindication: N/A - Med Ordered
[2024-04-03 19:07] VITALS: BP 150/100; PULSE 105; RESP 18; TEMP 36.5; O2SAT 96
[2024-04-04 03:38] VITALS: BP 164/79; PULSE 74; RESP 14; TEMP 36.3; O2SAT 96
[2024-04-04 07:20] VITALS: BP 139/66; PULSE 66; RESP 20; TEMP 36.1; O2SAT 96
[2024-04-04] MEDS: risperiDONE Oral Sol 1 MG/ML SOLUTION 0.5 MG PO ×2 (07:22→21:11)
[2024-04-04] MEDS: Miconazole Nitrate 2% Powder 85 GM Bottle 1 APPL TOPICAL ×2 (07:22→21:11)
[2024-04-04] MEDS: amLODIPine Besylate 5 MG TABLET PO (07:22)
[2024-04-04] MEDS: polyethylene glycoL 3350 17 GM POWD.PACK PO (07:22)
--- NOTE | 2024-04-04 11:59 | P.PNIM_ITS ---
Subjective Subjective Date of Service: 04/04/24 Interval History: seen and evaluated this morning laying comfortable in his bed no complaints no other events Review of Systems Review of Systems: Yes all other systems are reviewed and are negative Physical Exam 2 Vital Signs: Vital Signs: Last Vital Signs Temp 97.0 F 04/04/24 07:20 Pulse 66 04/04/24 07:20 Resp 20 04/04/24 07:20 BP 139/66 04/04/24 07:20 Pulse Ox 96 04/04/24 07:20 O2 Del Method Room Air 04/04/24 07:20 O2 Flow Rate 2 03/28/24 07:24 BMI result Body Mass Index 23.0 Const: Other: Constitutional : Awake, not in distress Neck : Normal inspection, Supple Cardiovascular : no JVP, no lower extremity edema Skin : Warm, Dry Neurological : Alert & disoriented to place and time, No focal deficit Objective Data Active Medications Acetaminophen (Acetaminophen 325 Mg Tablet) 650 mg PO Q6H PRN PRN Reason: Pain, Mild (Pain Scale 1-3), fever or headache Last Admin: 03/11/24 08:09 Dose: 650 mg Documented By: ADELINE Al Hydroxide/Mg Hydroxide (Magnesium Hydrox/Alum Hydrox 30 Ml Oral.Susp) 30 ml PO Q6H PRN PRN Reason: Constipation Amlodipine Besylate (Amlodipine Besylate 5 Mg Tablet) 5 mg PO DAILY [facility]; Protocol Last Admin: 04/04/24 07:22 Dose: 5 mg Documented By: KALANI Benzonatate (Benzonatate 100 Mg Capsule) 100 mg PO TID PRN PRN Reason: Cough Calcium Carbonate (Calcium Carbonate 750 Mg Tab.Chew) 750 mg PO Q4H PRN PRN Reason: Heartburn Clonidine (Clonidine 0.1 Mg Patch.Tdwk) 0.1 mg TRANSDERMA Tu@0900 [facility]; Protocol Last Admin: 03/31/24 08:04 Dose: 0.1 mg Documented By: FABIÁN Enoxaparin Sodium (Enoxaparin Sodium 40 Mg/0.4 Ml Syringe) 40 mg SUBCUT Q24H [facility] Last Admin: 02/16/24 19:27 Dose: 40 mg Documented By: SHLOMO Magnesium Hydroxide (Milk Of Magnesia 30 Ml Oral.Susp) 30 ml PO DAILY PRN PRN Reason: Constipation Melatonin (Melatonin 3 Mg Tablet) 6 mg PO BEDTIME PRN PRN Reason: Insomnia Last Admin: 04/01/24 19:48 Dose: 6 mg Documented By: SIMONA Miconazole Nitrate (Miconazole Nitrate 2% Powder 85 Gm Bottle) 1 appl TOPICAL BID [facility]; Protocol Last Admin: 04/04/24 07:22 Dose: 1 appl Documented By: KALANI Nicotine Polacrilex (Nicotine Polacrilex 2 Mg Gum) 4 mg BUCCAL Q2H PRN PRN Reason: Nicotine Cravings Ondansetron HCl (Ondansetron Hcl 4 Mg/2 Ml Vial) 4 mg IVPUSH Q8H PRN PRN Reason: Nausea and Vomiting Last Admin: 03/02/24 18:44 Dose: 4 mg Documented By: SEN Polyethylene Glycol (Polyethylene Glycol 3350 17 Gm Powd.Pack) 17 gm PO DAILY [facility] Last Admin: 04/04/24 07:22 Dose: 17 gm Documented By: KALANI Quetiapine Fumarate (Quetiapine Fumarate 25 Mg Tablet) 25 mg PO ONCE PRN PRN Reason: about 45 min before eeg Last Admin: 02/17/24 09:40 Dose: 25 mg Documented By: SHLOMO Risperidone (Risperidone Oral Peg 1 Mg/Ml Solution) 0.5 mg PO BID [facility] Last Admin: 04/04/24 07:22 Dose: 0.5 mg Documented By: KALANI Trazodone HCl (Trazodone Hcl 25 Mg Halftab) 25 mg PO BEDTIME PRN PRN Reason: Insomnia Last Admin: 04/02/24 20:26 Dose: 25 mg Documented By: AHMET Labs 02/15/24 06:10 02/15/24 06:10 Assessment and Plan (1) Cognitive and behavioral changes: Status: Acute Plan 83M PMH htn, unspecified dementia, admitted to [facility] 02/13/24 for FTT, not taking meds or food, transfered to medicine 02/14/24. 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 Nate Genao and her phone number is [phone] to be contacted for any updates. Quality Stroke Does the patient have a stroke diagnosis?: No VTE Prior VTE?: No VTE Risk Level:: Medical - moderate - high VTE Device Contraindication: Treatment Not Indicated VTE Drug Contraindication: N/A - Med Ordered
[2024-04-04] MEDS: Acetaminophen 325 MG TABLET 650 MG PO (14:00)
[2024-04-04 15:32] VITALS: BP 142/70; PULSE 72; RESP 16; TEMP 36.3; O2SAT 96
[2024-04-04 19:58] VITALS: BP 137/81; PULSE 92; RESP 18; TEMP 36.6; O2SAT 95
[2024-04-05 03:48] VITALS: BP 161/77; PULSE 70; RESP 14; TEMP 36.1; O2SAT 97
[2024-04-05 07:37] VITALS: BP 148/74; PULSE 66; RESP 14; TEMP 36; O2SAT 97
[2024-04-05] MEDS: polyethylene glycoL 3350 17 GM POWD.PACK PO (08:13)
[2024-04-05] MEDS: risperiDONE Oral Sol 1 MG/ML SOLUTION 0.5 MG PO ×2 (08:13→20:58)
[2024-04-05] MEDS: Miconazole Nitrate 2% Powder 85 GM Bottle 1 APPL TOPICAL ×2 (08:13→21:05)
[2024-04-05] MEDS: amLODIPine Besylate 5 MG TABLET PO (08:13)
--- NOTE | 2024-04-05 10:31 | HO.PM.IMPN ---
Subjective Subjective Date of Service: 04/05/24 Interval History: seen and evaluated this morning laying comfortable in his bed Left eye conjunctivitis no other events Review of Systems Review of Systems: Yes all other systems are reviewed and are negative Physical Exam Vital Signs: Vital Signs: Last Vital Signs Temp 96.8 F 04/05/24 07:37 Pulse 66 04/05/24 07:37 Resp 14 04/05/24 07:37 BP 148/74 H 04/05/24 07:37 Pulse Ox 97 04/05/24 07:37 O2 Del Method Room Air 04/05/24 07:37 O2 Flow Rate 2 03/28/24 07:24 BMI result Body Mass Index 23.0 Const: Other: Constitutional : Awake, not in distress Eyes: Left eye conjunctivitis Neck : Normal inspection, Supple Cardiovascular : no JVP, no lower extremity edema Skin : Warm, Dry Neurological : Alert & disoriented to place and time, No focal deficit Objective Data Active Medications Acetaminophen (Acetaminophen 325 Mg Tablet) 650 mg PO Q6H PRN PRN Reason: Pain, Mild (Pain Scale 1-3), fever or headache Last Admin: 04/04/24 14:00 Dose: 650 mg Documented By: KALANI Al Hydroxide/Mg Hydroxide (Magnesium Hydrox/Alum Hydrox 30 Ml Oral.Susp) 30 ml PO Q6H PRN PRN Reason: Constipation Amlodipine Besylate (Amlodipine Besylate 5 Mg Tablet) 5 mg PO DAILY [facility]; Protocol Last Admin: 04/05/24 08:13 Dose: 5 mg Documented By: KALANI Benzonatate (Benzonatate 100 Mg Capsule) 100 mg PO TID PRN PRN Reason: Cough Calcium Carbonate (Calcium Carbonate 750 Mg Tab.Chew) 750 mg PO Q4H PRN PRN Reason: Heartburn Clonidine (Clonidine 0.1 Mg Patch.Tdwk) 0.1 mg TRANSDERMA Tu@0900 [facility]; Protocol Last Admin: 03/31/24 08:04 Dose: 0.1 mg Documented By: FABIÁN Enoxaparin Sodium (Enoxaparin Sodium 40 Mg/0.4 Ml Syringe) 40 mg SUBCUT Q24H [facility] Last Admin: 02/16/24 19:27 Dose: 40 mg Documented By: SHLOMO Magnesium Hydroxide (Milk Of Magnesia 30 Ml Oral.Susp) 30 ml PO DAILY PRN PRN Reason: Constipation Melatonin (Melatonin 3 Mg Tablet) 6 mg PO BEDTIME PRN PRN Reason: Insomnia Last Admin: 04/01/24 19:48 Dose: 6 mg Documented By: SIMONA Miconazole Nitrate (Miconazole Nitrate 2% Powder 85 Gm Bottle) 1 appl TOPICAL BID [facility]; Protocol Last Admin: 04/05/24 08:13 Dose: 1 appl Documented By: KALANI Nicotine Polacrilex (Nicotine Polacrilex 2 Mg Gum) 4 mg BUCCAL Q2H PRN PRN Reason: Nicotine Cravings Ondansetron HCl (Ondansetron Hcl 4 Mg/2 Ml Vial) 4 mg IVPUSH Q8H PRN PRN Reason: Nausea and Vomiting Last Admin: 03/02/24 18:44 Dose: 4 mg Documented By: SEN Polyethylene Glycol (Polyethylene Glycol 3350 17 Gm Powd.Pack) 17 gm PO DAILY [facility] Last Admin: 04/05/24 08:13 Dose: 17 gm Documented By: KALANI Quetiapine Fumarate (Quetiapine Fumarate 25 Mg Tablet) 25 mg PO ONCE PRN PRN Reason: about 45 min before eeg Last Admin: 02/17/24 09:40 Dose: 25 mg Documented By: SHLOMO Risperidone (Risperidone Oral Peg 1 Mg/Ml Solution) 0.5 mg PO BID [facility] Last Admin: 04/05/24 08:13 Dose: 0.5 mg Documented By: KALANI Trazodone HCl (Trazodone Hcl 25 Mg Halftab) 25 mg PO BEDTIME PRN PRN Reason: Insomnia Last Admin: 04/02/24 20:26 Dose: 25 mg Documented By: MARILEEILM Labs 02/15/24 06:10 02/15/24 06:10 Assessment and Plan (1) Cognitive and behavioral changes: Status: Acute Plan 83M PMH htn, unspecified dementia, admitted to [facility] 02/13/24 for FTT, not taking meds or food, transfered to medicine 02/14/24. 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 EEG showing general slowing but no seizure disorder STORE SHOPPER appreciated, NDD3 solids, thin liquids conjunctivitis completed course of polymixin/neomycin Hypertension Transdermal clonidine Amlodipine Mood disorder Risperidone, trazodone DVT prophylaxis with Lovenox Full Code reason for continued hospitalization: Safe dispo The patient HCP is his step-daughter Alcides can be reached on [phone] Patient sister name is Dr. Nate Genao and her phone number is [phone] to be contacted for any updates. Quality Stroke Does the patient have a stroke diagnosis?: No VTE Prior VTE?: No VTE Risk Level:: Medical - moderate - high VTE Device Contraindication: Treatment Not Indicated VTE Drug Contraindication: N/A - Med Ordered
[2024-04-05 15:23] VITALS: BP 127/86; PULSE 100; RESP 16; TEMP 36.4; O2SAT 97
[2024-04-05] MEDS: Enoxaparin Sodium 40 MG/0.4 ML SYRINGE SUBCUT (16:17)
[2024-04-05 19:34] VITALS: BP 145/83; PULSE 92; RESP 16; TEMP 36.6; O2SAT 96
[2024-04-06 03:15] VITALS: BP 134/87; PULSE 85; RESP 16; TEMP 36.5; O2SAT 96
[2024-04-06 07:25] VITALS: BP 152/82; PULSE 87; RESP 16; TEMP 36.4; O2SAT 96
[2024-04-06] MEDS: risperiDONE Oral Sol 1 MG/ML SOLUTION 0.5 MG PO ×2 (08:07→19:13)
[2024-04-06] MEDS: amLODIPine Besylate 5 MG TABLET PO (08:07)
[2024-04-06] MEDS: polyethylene glycoL 3350 17 GM POWD.PACK PO (08:09)
[2024-04-06] MEDS: Miconazole Nitrate 2% Powder 85 GM Bottle 1 APPL TOPICAL ×2 (08:09→19:13)
--- NOTE | 2024-04-06 11:08 | MHC.CM.PN ---
PT AWAITING CONSERVATORSHIP HEARING AND SUBSEQUENT LTC PLACEMENT REFERRALS WILL BE MADE ONCE APPROPRIATE DOCUMENTATION IS OBTAINED
--- NOTE | 2024-04-06 11:52 | MHC.CLN ---
F/U DIET=REGULAR, CHOPPED WITH FORTIFIED ICE CREAM TID. SUPPLEMENT PROVIDES 870 KCALS, 27 G PROTEIN. PO INTAKE CONTINUES TO BE VARIABLE, 25-75%. ODETTE=11. SKIN WITH REDNESS TO COCCYX. CONTINUE TO MONITOR PO INTAKE AND ENCOURAGE SUPPLEMENTS. RD TO CONTINUE TO FOLLOW WEEKLY.
[2024-04-06 13:00] VITALS: BMI 20.2
--- NOTE | 2024-04-06 14:36 | HO.PM.IMPN ---
Subjective Subjective Date of Service: 04/06/24 Interval History: seen and evaluated this morning laying comfortable in his bed Left eye conjunctivitis improving no other events Review of Systems Review of Systems: Yes all other systems are reviewed and are negative Physical Exam Vital Signs: Vital Signs: Last Vital Signs Temp 97.5 F 04/06/24 07:25 Pulse 87 04/06/24 07:25 Resp 16 04/06/24 07:25 BP 152/82 H 04/06/24 07:25 Pulse Ox 96 04/06/24 07:25 O2 Del Method Room Air 04/06/24 07:25 O2 Flow Rate 2 03/28/24 07:24 BMI result Body Mass Index 20.2 Const: Other: Constitutional : Awake, not in distress Eyes: Left eye conjunctivitis Neck : Normal inspection, Supple Cardiovascular : no JVP, no lower extremity edema Skin : Warm, Dry Neurological : Alert & disoriented to place and time, No focal deficit Objective Data Active Medications Acetaminophen (Acetaminophen 325 Mg Tablet) 650 mg PO Q6H PRN PRN Reason: Pain, Mild (Pain Scale 1-3), fever or headache Last Admin: 04/04/24 14:00 Dose: 650 mg Documented By: KALANI Al Hydroxide/Mg Hydroxide (Magnesium Hydrox/Alum Hydrox 30 Ml Oral.Susp) 30 ml PO Q6H PRN PRN Reason: Constipation Amlodipine Besylate (Amlodipine Besylate 5 Mg Tablet) 5 mg PO DAILY [facility]; Protocol Last Admin: 04/06/24 08:07 Dose: 5 mg Documented By: GRAZIC Benzonatate (Benzonatate 100 Mg Capsule) 100 mg PO TID PRN PRN Reason: Cough Calcium Carbonate (Calcium Carbonate 750 Mg Tab.Chew) 750 mg PO Q4H PRN PRN Reason: Heartburn Clonidine (Clonidine 0.1 Mg Patch.Tdwk) 0.1 mg TRANSDERMA Tu@0900 [facility]; Protocol Last Admin: 03/31/24 08:04 Dose: 0.1 mg Documented By: FABIÁN Enoxaparin Sodium (Enoxaparin Sodium 40 Mg/0.4 Ml Syringe) 40 mg SUBCUT Q24H [facility] Last Admin: 04/05/24 16:17 Dose: 40 mg Documented By: KALANI Magnesium Hydroxide (Milk Of Magnesia 30 Ml Oral.Susp) 30 ml PO DAILY PRN PRN Reason: Constipation Melatonin (Melatonin 3 Mg Tablet) 6 mg PO BEDTIME PRN PRN Reason: Insomnia Last Admin: 04/01/24 19:48 Dose: 6 mg Documented By: SIMONA Miconazole Nitrate (Miconazole Nitrate 2% Powder 85 Gm Bottle) 1 appl TOPICAL BID [facility]; Protocol Last Admin: 04/06/24 08:09 Dose: 1 appl Documented By: TAYLOR Neomycin/Polymyxin/Hydrocortisone (Neomycin/Polymyxin/Hc Oph Susp 7.5 Ml Bottle) 2 drop EYE-LEFT Q6H [facility] Last Admin: 04/06/24 10:48 Dose: 2 drop Documented By: TAYLOR Nicotine Polacrilex (Nicotine Polacrilex 2 Mg Gum) 4 mg BUCCAL Q2H PRN PRN Reason: Nicotine Cravings Ondansetron HCl (Ondansetron Hcl 4 Mg/2 Ml Vial) 4 mg IVPUSH Q8H PRN PRN Reason: Nausea and Vomiting Last Admin: 03/02/24 18:44 Dose: 4 mg Documented By: SEN Polyethylene Glycol (Polyethylene Glycol 3350 17 Gm Powd.Pack) 17 gm PO DAILY [facility] Last Admin: 04/06/24 08:09 Dose: 17 gm Documented By: TAYLOR Quetiapine Fumarate (Quetiapine Fumarate 25 Mg Tablet) 25 mg PO ONCE PRN PRN Reason: about 45 min before eeg Last Admin: 02/17/24 09:40 Dose: 25 mg Documented By: SHLOMO Risperidone (Risperidone Oral Peg 1 Mg/Ml Solution) 0.5 mg PO BID [facility] Last Admin: 04/06/24 08:07 Dose: 0.5 mg Documented By: TAYLOR Trazodone HCl (Trazodone Hcl 25 Mg Halftab) 25 mg PO BEDTIME PRN PRN Reason: Insomnia Last Admin: 04/02/24 20:26 Dose: 25 mg Documented By: CASTILM Labs 02/15/24 06:10 02/15/24 06:10 Assessment and Plan (1) Cognitive and behavioral changes: Status: Acute Plan 83M PMH htn, unspecified dementia, admitted to [facility] 02/13/24 for FTT, not taking meds or food, transfered to medicine 02/14/24. 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 EEG showing general slowing but no seizure disorder LOSS PREVENTION LEAD appreciated, NDD3 solids, thin liquids left eye conjunctivitis started on eye drops of polymixin/neomycin Hypertension Transdermal clonidine Amlodipine Mood disorder Risperidone, trazodone DVT prophylaxis with Lovenox Full Code reason for continued hospitalization: Safe dispo The patient HCP is his step-daughter Alcides can be reached on [phone] Patient sister name is Dr. Nate Genao and her phone number is [phone] to be contacted for any updates. Quality Stroke Does the patient have a stroke diagnosis?: No VTE Prior VTE?: No VTE Risk Level:: Medical - moderate - high VTE Device Contraindication: Treatment Not Indicated VTE Drug Contraindication: N/A - Med Ordered
[2024-04-06 15:16] VITALS: BP 137/76; PULSE 109; RESP 18; TEMP 36.4; O2SAT 98
[2024-04-06] MEDS: Enoxaparin Sodium 40 MG/0.4 ML SYRINGE SUBCUT (16:38)
--- NOTE | 2024-04-06 19:27 | HO.BHRESTREX ---
Behavioral Restraint Exam Behavioral Health Restraint Exam Type of Restraint: Medication Reason for Restraint: Substantial Risk and Substantial Risk of Harm to Others Medical Concerns for Restraint: No medical concerns, pt w/o acute inj / no noted resp/VS abnormalities Behavioral Assessment / Plan: No further behavioral concerns, continue current plan.
[2024-04-06] MEDS: OLANZapine 10 MG VIAL IM (19:38)
[2024-04-06 19:57] VITALS: BP 125/73; PULSE 85; RESP 18; TEMP 36.4; O2SAT 93
--- NOTE | 2024-04-06 23:04 | PC.NURSE ---
Around 1920 pt very agitated, getting aggressive and combative with staff, spitting at staff, trying to get out of bed but very unsteady on feet. [place] text to Dr. Menjivar, IM Zyprexa ordered and administered at 1938 with good effect. Pt resting comfortably in bed now, will continue to monitor.
[2024-04-07 03:46] VITALS: BP 172/85; RESP 18; TEMP 36.4
[2024-04-07 07:34] VITALS: BP 138/63; PULSE 69; RESP 16; TEMP 36.4; O2SAT 95
[2024-04-07] MEDS: Miconazole Nitrate 2% Powder 85 GM Bottle 1 APPL TOPICAL ×2 (09:32→21:53)
--- NOTE | 2024-04-07 09:47 | PC.NURSE ---
Patient refused morning medications and assessment from this RN, pt fixated on breakfast and refusing to confirm name and as well, pt set up with breakfast tray and will attempt to give medications and assess at a later time. Dr. Jones made aware
--- NOTE | 2024-04-07 09:57 | HO.PM.IMPN ---
Subjective Subjective Date of Service: 04/07/24 Interval History: was agitated overnight, required zyprexa Physical Exam Vital Signs: Vital Signs: Last Vital Signs Temp 97.5 F 04/07/24 07:34 Pulse 69 04/07/24 07:34 Resp 16 04/07/24 07:34 BP 138/63 04/07/24 07:34 Pulse Ox 95 04/07/24 07:34 O2 Del Method Room Air 04/07/24 07:34 O2 Flow Rate 2 03/28/24 07:24 BMI result Body Mass Index 20.2 Const: Other: Constitutional : Awake, not in distress Eyes: Left eye conjunctivitis Neck : Normal inspection, Supple Cardiovascular : no JVP, no lower extremity edema Skin : Warm, Dry Neurological : Alert & disoriented to place and time, No focal deficit Objective Data Active Medications Acetaminophen (Acetaminophen 325 Mg Tablet) 650 mg PO Q6H PRN PRN Reason: Pain, Mild (Pain Scale 1-3), fever or headache Last Admin: 04/04/24 14:00 Dose: 650 mg Documented By: KALANI Al Hydroxide/Mg Hydroxide (Magnesium Hydrox/Alum Hydrox 30 Ml Oral.Susp) 30 ml PO Q6H PRN PRN Reason: Constipation Amlodipine Besylate (Amlodipine Besylate 5 Mg Tablet) 5 mg PO DAILY [facility]; Protocol Last Admin: 04/07/24 09:38 Dose: Not Given Documented By: ANTONIO Non-Admin Reason: Patient Refused Benzonatate (Benzonatate 100 Mg Capsule) 100 mg PO TID PRN PRN Reason: Cough Calcium Carbonate (Calcium Carbonate 750 Mg Tab.Chew) 750 mg PO Q4H PRN PRN Reason: Heartburn Clonidine (Clonidine 0.1 Mg Patch.Tdwk) 0.1 mg TRANSDERMA Tu@0900 [facility]; Protocol Last Admin: 03/31/24 08:04 Dose: 0.1 mg Documented By: FABIÁN Enoxaparin Sodium (Enoxaparin Sodium 40 Mg/0.4 Ml Syringe) 40 mg SUBCUT Q24H [facility] Last Admin: 04/06/24 16:38 Dose: 40 mg Documented By: TAYLOR Magnesium Hydroxide (Milk Of Magnesia 30 Ml Oral.Susp) 30 ml PO DAILY PRN PRN Reason: Constipation Melatonin (Melatonin 3 Mg Tablet) 6 mg PO BEDTIME PRN PRN Reason: Insomnia Last Admin: 04/01/24 19:48 Dose: 6 mg Documented By: SIMONA Miconazole Nitrate (Miconazole Nitrate 2% Powder 85 Gm Bottle) 1 appl TOPICAL BID [facility]; Protocol Last Admin: 04/07/24 09:32 Dose: 1 appl Documented By: ANTONIO Neomycin/Polymyxin/Hydrocortisone (Neomycin/Polymyxin/Hc Oph Susp 7.5 Ml Bottle) 2 drop EYE-LEFT Q6H [facility] Last Admin: 04/07/24 04:35 Dose: 2 drop Documented By: ADAMARIS Nicotine Polacrilex (Nicotine Polacrilex 2 Mg Gum) 4 mg BUCCAL Q2H PRN PRN Reason: Nicotine Cravings Ondansetron HCl (Ondansetron Hcl 4 Mg/2 Ml Vial) 4 mg IVPUSH Q8H PRN PRN Reason: Nausea and Vomiting Last Admin: 03/02/24 18:44 Dose: 4 mg Documented By: SEN Polyethylene Glycol (Polyethylene Glycol 3350 17 Gm Powd.Pack) 17 gm PO DAILY [facility] Last Admin: 04/07/24 09:38 Dose: Not Given Documented By: ANTONIO Non-Admin Reason: Patient Refused Quetiapine Fumarate (Quetiapine Fumarate 25 Mg Tablet) 25 mg PO ONCE PRN PRN Reason: about 45 min before eeg Last Admin: 02/17/24 09:40 Dose: 25 mg Documented By: SHLOMO Risperidone (Risperidone Oral Peg 1 Mg/Ml Solution) 0.5 mg PO BID [facility] Last Admin: 04/07/24 09:37 Dose: Not Given Documented By: ANTONIO Non-Admin Reason: Patient Refused Trazodone HCl (Trazodone Hcl 25 Mg Halftab) 25 mg PO BEDTIME PRN PRN Reason: Insomnia Last Admin: 04/02/24 20:26 Dose: 25 mg Documented By: AHMET Labs 02/15/24 06:10 02/15/24 06:10 Assessment and Plan (1) Cognitive and behavioral changes: Status: Acute Plan 83M PMH htn, unspecified dementia, admitted to [facility] 02/13/24 for FTT, not taking meds or food, transfered to medicine 02/14/24. 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 EEG showing general slowing but no seizure disorder [employer]ING appreciated, NDD3 solids, thin liquids increased agitation overnight, managed well with zyprexa, will check labs tomorrow left eye conjunctivitis started on eye drops of polymixin/neomycin Hypertension Transdermal clonidine Amlodipine Mood disorder Risperidone, trazodone DVT prophylaxis with Lovenox Full Code reason for continued hospitalization: Safe dispo The patient HCP is his step-daughter Alcides can be reached on [phone] Patient sister name is Dr. Nate Genao and her phone number is [phone] to be contacted for any updates. Quality Stroke Does the patient have a stroke diagnosis?: No VTE Prior VTE?: No VTE Risk Level:: Medical - moderate - high VTE Device Contraindication: Treatment Not Indicated VTE Drug Contraindication: N/A - Med Ordered
[2024-04-07] MEDS: cloNIDine 0.1 MG PATCH.TDWK TRANSDERMA (10:17)
[2024-04-07 15:09] VITALS: BP 123/63; PULSE 93; RESP 20; TEMP 37.3; O2SAT 96
[2024-04-07] MEDS: Enoxaparin Sodium 40 MG/0.4 ML SYRINGE SUBCUT (17:02)
[2024-04-07 19:13] VITALS: BP 142/82; PULSE 120; RESP 18; TEMP 36.8; O2SAT 92
[2024-04-07] MEDS: risperiDONE Oral Sol 1 MG/ML SOLUTION 0.5 MG PO (21:58)
[2024-04-08 03:12] VITALS: BP 140/72; PULSE 76; RESP 14; TEMP 36.1; O2SAT 98
[2024-04-08 06:48] LABS: Hematocrit 47.4 % (42.0-52.0); Mean Corpuscular HGB Conc 33.8 g/dl (31.0-36.0); Mean Corpuscular Hemoglobin 31.2 pg (27.0-33.0); Mean Corpuscular Volume 92.4 fL (80.0-98.0); Mean Platelet Volume 10.4 fL (9.4-12.4); Platelet Count 314 X10*3/uL (160-400); Red Blood Count 5.13 X10*6/uL (4.60-5.80); Red Cell Distribution Width 13.1 % (11.0-16.0); White Blood Count 9.8 X10*3/uL (4.8-10.8)
[2024-04-08 06:59] VITALS: BP 134/70; PULSE 85; RESP 16; TEMP 36.5; O2SAT 95
[2024-04-08 07:12] LABS: Alanine Aminotransferase 46 U/L (0-40); Albumin Level 3.9 g/dL (3.5-5.0); Alkaline Phosphatase 105 U/L (39-117); Anion Gap 12 (12-20); Aspartate Amino Transferase 29 U/L (5-37); Bilirubin Direct 0.3 mg/dL (0.0-0.5); Bilirubin Total 0.8 mg/dL (0.0-1.0); Blood Urea Nitrogen 25 mg/dL (9-16); Calcium 9.4 mg/dL (8.4-10.2); Carbon Dioxide 26 mmol/L (22-29); Chloride 111 mmol/L (96-108); Estimated Glomerular Filt Rate > 60; Glucose Random 92 mg/dL (60-115); Magnesium 2.5 mg/dL (1.6-2.6); Potassium 4.7 mmol/L (3.3-5.1); Sodium 144 mmol/L (135-145); Total Protein 6.8 g/dL (6.5-8.0)
--- NOTE | 2024-04-08 08:47 | HO.PM.IMPN ---
Subjective Subjective Date of Service: 04/08/24 Interval History: No complaint Physical Exam Vital Signs: Vital Signs: Last Vital Signs Temp 97.7 F 04/08/24 06:59 Pulse 85 04/08/24 06:59 Resp 16 04/08/24 06:59 BP 134/70 04/08/24 06:59 Pulse Ox 95 04/08/24 06:59 O2 Del Method Room Air 04/08/24 06:59 O2 Flow Rate 2 03/28/24 07:24 BMI result Body Mass Index 20.2 Const: Other: Constitutional : Awake, not in distress Eyes: Left eye conjunctivitis Neck : Normal inspection, Supple Cardiovascular : no JVP, no lower extremity edema Skin : Warm, Dry Neurological : Alert & disoriented to place and time, No focal deficit Objective Data Active Medications Acetaminophen (Acetaminophen 325 Mg Tablet) 650 mg PO Q6H PRN PRN Reason: Pain, Mild (Pain Scale 1-3), fever or headache Last Admin: 04/04/24 14:00 Dose: 650 mg Documented By: KALANI Al Hydroxide/Mg Hydroxide (Magnesium Hydrox/Alum Hydrox 30 Ml Oral.Susp) 30 ml PO Q6H PRN PRN Reason: Constipation Amlodipine Besylate (Amlodipine Besylate 5 Mg Tablet) 5 mg PO DAILY [facility]; Protocol Last Admin: 04/07/24 09:38 Dose: Not Given Documented By: ANTONIO Non-Admin Reason: Patient Refused Benzonatate (Benzonatate 100 Mg Capsule) 100 mg PO TID PRN PRN Reason: Cough Calcium Carbonate (Calcium Carbonate 750 Mg Tab.Chew) 750 mg PO Q4H PRN PRN Reason: Heartburn Clonidine (Clonidine 0.1 Mg Patch.Tdwk) 0.1 mg TRANSDERMA Tu@0900 [facility]; Protocol Last Admin: 04/07/24 10:17 Dose: 0.1 mg Documented By: ANTONIO Enoxaparin Sodium (Enoxaparin Sodium 40 Mg/0.4 Ml Syringe) 40 mg SUBCUT Q24H [facility] Last Admin: 04/07/24 17:02 Dose: 40 mg Documented By: ANTONIO Magnesium Hydroxide (Milk Of Magnesia 30 Ml Oral.Susp) 30 ml PO DAILY PRN PRN Reason: Constipation Melatonin (Melatonin 3 Mg Tablet) 6 mg PO BEDTIME PRN PRN Reason: Insomnia Last Admin: 04/01/24 19:48 Dose: 6 mg Documented By: SIMONA Miconazole Nitrate (Miconazole Nitrate 2% Powder 85 Gm Bottle) 1 appl TOPICAL BID [facility]; Protocol Last Admin: 04/07/24 21:53 Dose: 1 appl Documented By: СВЕТЛАНА Neomycin/Polymyxin/Hydrocortisone (Neomycin/Polymyxin/Hc Oph Susp 7.5 Ml Bottle) 2 drop EYE-LEFT Q6H [facility] Last Admin: 04/08/24 05:29 Dose: 2 drop Documented By: СВЕТЛАНА Nicotine Polacrilex (Nicotine Polacrilex 2 Mg Gum) 4 mg BUCCAL Q2H PRN PRN Reason: Nicotine Cravings Ondansetron HCl (Ondansetron Hcl 4 Mg/2 Ml Vial) 4 mg IVPUSH Q8H PRN PRN Reason: Nausea and Vomiting Last Admin: 03/02/24 18:44 Dose: 4 mg Documented By: SEN Polyethylene Glycol (Polyethylene Glycol 3350 17 Gm Powd.Pack) 17 gm PO DAILY [facility] Last Admin: 04/07/24 09:38 Dose: Not Given Documented By: ANTONIO Non-Admin Reason: Patient Refused Quetiapine Fumarate (Quetiapine Fumarate 25 Mg Tablet) 25 mg PO ONCE PRN PRN Reason: about 45 min before eeg Last Admin: 02/17/24 09:40 Dose: 25 mg Documented By: SHLOMO Risperidone (Risperidone Oral Peg 1 Mg/Ml Solution) 0.5 mg PO BID [facility] Last Admin: 04/07/24 21:58 Dose: 0.5 mg Documented By: СВЕТЛАНА Trazodone HCl (Trazodone Hcl 25 Mg Halftab) 25 mg PO BEDTIME PRN PRN Reason: Insomnia Last Admin: 04/02/24 20:26 Dose: 25 mg Documented By: CASTILM Labs 04/08/24 05:03 04/08/24 05:03 Labs: Laboratory Results - last 24 hr 04/08/24 05:03 MCV 92.4 MCH 31.2 MCHC 33.8 RDW 13.1 Plt Count 314 D MPV 10.4 Absolute Nucleated RBC 0.000 Nucleated RBC % (auto) 0.0 Anion Gap 12 Estim Creat Clear Calc 68.0 Estimated GFR > 60 Random Glucose 92 Calcium 9.4 Magnesium 2.5 Total Bilirubin 0.8 Direct Bilirubin 0.3 AST 29 ALT 46 H Alkaline Phosphatase 105 Total Protein 6.8 Albumin 3.9 Assessment and Plan (1) Cognitive and behavioral changes: Status: Acute Plan 83M PMH htn, unspecified dementia, admitted to [facility] 02/13/24 for FTT, not taking meds or food, transfered to medicine 02/14/24. 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 EEG showing general slowing but no seizure disorder TONG SETTER appreciated, NDD3 solids, thin liquids left eye conjunctivitis started on eye drops of polymixin/neomycin Hypertension Transdermal clonidine Amlodipine Mood disorder Risperidone, trazodone DVT prophylaxis with Lovenox Full Code reason for continued hospitalization: Safe dispo The patient HCP is his step-daughter Alcides can be reached on [phone] Patient sister name is Dr. Nate Genao and her phone number is [phone] to be contacted for any updates. Quality Stroke Does the patient have a stroke diagnosis?: No VTE Prior VTE?: No VTE Risk Level:: Medical - moderate - high VTE Device Contraindication: Treatment Not Indicated VTE Drug Contraindication: N/A - Med Ordered
[2024-04-08] MEDS: risperiDONE Oral Sol 1 MG/ML SOLUTION 0.5 MG PO ×2 (09:41→21:31)
[2024-04-08] MEDS: polyethylene glycoL 3350 17 GM POWD.PACK PO (09:42)
[2024-04-08] MEDS: Miconazole Nitrate 2% Powder 85 GM Bottle 1 APPL TOPICAL ×2 (09:42→19:57)
--- NOTE | 2024-04-08 12:47 | MHC.CM.PN ---
PT 'S CONSERVATOR HEARING WILL BE HELD TODAY. PT WILL NEED LTC PLACEMENT ONCE FINANCES ARE SITUATED.CM WILL CONTINUE TO FOLLOW.
[2024-04-08 15:10] VITALS: BP 137/73; PULSE 84; RESP 16; TEMP 36.3; O2SAT 97
[2024-04-08] MEDS: Enoxaparin Sodium 40 MG/0.4 ML SYRINGE SUBCUT (17:03)
[2024-04-08 19:32] VITALS: BP 132/81; PULSE 104; RESP 18; TEMP 36.3; O2SAT 94
[2024-04-08] MEDS: Ondansetron ODT 4 MG TAB.RAPDIS TRANSLINGU (19:57)
[2024-04-08] MEDS: Erythromycin Base 0.5% Oph Oin 1 GM TUBE 1 CM EYE-BOTH (21:31)
[2024-04-09 04:00] VITALS: BP 114/64; PULSE 78; RESP 18; TEMP 36.6; O2SAT 97
[2024-04-09 07:25] VITALS: BP 144/76; PULSE 74; RESP 16; TEMP 36.9; O2SAT 96
[2024-04-09] MEDS: polyethylene glycoL 3350 17 GM POWD.PACK PO (09:12)
[2024-04-09] MEDS: Erythromycin Base 0.5% Oph Oin 1 GM TUBE 1 CM EYE-BOTH ×2 (09:12→20:05)
[2024-04-09 09:13] VITALS: BP 127/71
[2024-04-09] MEDS: amLODIPine Besylate 5 MG TABLET PO (09:13)
[2024-04-09] MEDS: Miconazole Nitrate 2% Powder 85 GM Bottle 1 APPL TOPICAL ×2 (09:20→20:06)
--- NOTE | 2024-04-09 09:23 | HO.PM.IMPN ---
Subjective Subjective Date of Service: 04/09/24 Interval History: No complaint Physical Exam Vital Signs: Vital Signs: Last Vital Signs Temp 98.5 F 04/09/24 07:25 Pulse 74 04/09/24 07:25 Resp 16 04/09/24 07:25 BP 127/71 04/09/24 09:13 Pulse Ox 96 04/09/24 07:25 O2 Del Method Room Air 04/09/24 07:25 O2 Flow Rate 2 03/28/24 07:24 BMI result Body Mass Index 20.2 Const: Other: Constitutional : Awake, not in distress Eyes: Left eye conjunctivitis Neck : Normal inspection, Supple Cardiovascular : no JVP, no lower extremity edema Skin : Warm, Dry Neurological : Alert & disoriented to place and time, No focal deficit Objective Data Active Medications Acetaminophen (Acetaminophen 325 Mg Tablet) 650 mg PO Q6H PRN PRN Reason: Pain, Mild (Pain Scale 1-3), fever or headache Last Admin: 04/04/24 14:00 Dose: 650 mg Documented By: KALANI Al Hydroxide/Mg Hydroxide (Magnesium Hydrox/Alum Hydrox 30 Ml Oral.Susp) 30 ml PO Q6H PRN PRN Reason: Constipation Amlodipine Besylate (Amlodipine Besylate 5 Mg Tablet) 5 mg PO DAILY [facility]; Protocol Last Admin: 04/09/24 09:13 Dose: 5 mg Documented By: KALANI Benzonatate (Benzonatate 100 Mg Capsule) 100 mg PO TID PRN PRN Reason: Cough Calcium Carbonate (Calcium Carbonate 750 Mg Tab.Chew) 750 mg PO Q4H PRN PRN Reason: Heartburn Clonidine (Clonidine 0.1 Mg Patch.Tdwk) 0.1 mg TRANSDERMA Tu@0900 [facility]; Protocol Last Admin: 04/07/24 10:17 Dose: 0.1 mg Documented By: ANTONIO Enoxaparin Sodium (Enoxaparin Sodium 40 Mg/0.4 Ml Syringe) 40 mg SUBCUT Q24H [facility] Last Admin: 04/08/24 17:03 Dose: 40 mg Documented By: ANTONIO Erythromycin (Erythromycin Base 0.5% Oph Oin 1 Gm Tube) 1 cm EYE-BOTH BID [facility] Last Admin: 04/09/24 09:12 Dose: 1 cm Documented By: KALANI Magnesium Hydroxide (Milk Of Magnesia 30 Ml Oral.Susp) 30 ml PO DAILY PRN PRN Reason: Constipation Melatonin (Melatonin 3 Mg Tablet) 6 mg PO BEDTIME PRN PRN Reason: Insomnia Last Admin: 04/01/24 19:48 Dose: 6 mg Documented By: SIMONA Miconazole Nitrate (Miconazole Nitrate 2% Powder 85 Gm Bottle) 1 appl TOPICAL BID [facility]; Protocol Last Admin: 04/09/24 09:20 Dose: 1 appl Documented By: KALANI Nicotine Polacrilex (Nicotine Polacrilex 2 Mg Gum) 4 mg BUCCAL Q2H PRN PRN Reason: Nicotine Cravings Ondansetron HCl (Ondansetron Hcl 4 Mg/2 Ml Vial) 4 mg IVPUSH Q8H PRN PRN Reason: Nausea and Vomiting Last Admin: 03/02/24 18:44 Dose: 4 mg Documented By: SEN Ondansetron HCl (Ondansetron Odt 4 Mg Tab.Rapdis) 4 mg TRANSLINGU Q6H PRN PRN Reason: Nausea and Vomiting Last Admin: 04/08/24 19:57 Dose: 4 mg Documented By: JENSEN Polyethylene Glycol (Polyethylene Glycol 3350 17 Gm Powd.Pack) 17 gm PO DAILY [facility] Last Admin: 04/09/24 09:12 Dose: 17 gm Documented By: KALANI Quetiapine Fumarate (Quetiapine Fumarate 25 Mg Tablet) 25 mg PO ONCE PRN PRN Reason: about 45 min before eeg Last Admin: 02/17/24 09:40 Dose: 25 mg Documented By: SHLOMO Risperidone (Risperidone Oral Peg 1 Mg/Ml Solution) 0.5 mg PO BID [facility] Last Admin: 04/08/24 21:31 Dose: 0.5 mg Documented By: JENSEN Trazodone HCl (Trazodone Hcl 25 Mg Halftab) 25 mg PO BEDTIME PRN PRN Reason: Insomnia Last Admin: 04/02/24 20:26 Dose: 25 mg Documented By: AHMET Labs 04/08/24 05:03 04/08/24 05:03 Assessment and Plan (1) Cognitive and behavioral changes: Status: Acute Plan 83M PMH htn, unspecified dementia, admitted to [facility] 02/13/24 for FTT, not taking meds or food, transfered to medicine 02/14/24. 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 EEG showing general slowing but no seizure disorder DIRECTOR OF CURRICULUM AND INSTRUCTION appreciated, NDD3 solids, thin liquids bilateral conjunctivitis continue eye drops Hypertension Transdermal clonidine Amlodipine Mood disorder Risperidone, trazodone DVT prophylaxis with Lovenox Full Code reason for continued hospitalization: Safe dispo The patient HCP is his step-daughter Alcides can be reached on [phone] Patient sister name is Dr. Nate Genao and her phone number is [phone] to be contacted for any updates. Quality Stroke Does the patient have a stroke diagnosis?: No VTE Prior VTE?: No VTE Risk Level:: Medical - moderate - high VTE Device Contraindication: Treatment Not Indicated VTE Drug Contraindication: N/A - Med Ordered
[2024-04-09] MEDS: risperiDONE Oral Sol 1 MG/ML SOLUTION 0.5 MG PO ×2 (09:25→20:05)
--- NOTE | 2024-04-09 14:23 | HO.WOUND ---
Wound Consult: Initial 83yr old?male admitted to [facility] on 02/14/24 - See progress notes and H&P for detailed history.?Awaiting placement and discharge planning. Wound consult placed for Right foot.? Patient was very resistant to assessment - he was verbally frustrated. I attempted to explain the goals of my assessment but he remains resistive. The right foot plantar area was assessed - he is noted for dry flat lifting callus vs kertanious tissue to the ball of his foot. No pain noted, no open wound noted - this is stable and does not need intervention at this time. Skin lesion of this appearance and of unknown etiology should be considered for biopsy by a wound care physician. Should family wish to pursue - recommend Dermatology outpt for follow up. No topical recommendations needed at this time.
[2024-04-09 16:00] VITALS: BP 146/71; PULSE 93; RESP 16; TEMP 37; O2SAT 96
[2024-04-09] MEDS: Enoxaparin Sodium 40 MG/0.4 ML SYRINGE SUBCUT (16:50)
[2024-04-09 19:29] VITALS: BP 123/71; PULSE 81; RESP 18; TEMP 36.3; O2SAT 97
[2024-04-10 03:14] VITALS: BP 132/72; PULSE 68; RESP 20; TEMP 36.1; O2SAT 98
[2024-04-10 07:51] VITALS: BP 165/81; PULSE 65; RESP 16; TEMP 36.4; O2SAT 94
[2024-04-10] MEDS: amLODIPine Besylate 5 MG TABLET PO (08:22)
[2024-04-10] MEDS: Erythromycin Base 0.5% Oph Oin 1 GM TUBE 1 CM EYE-BOTH ×2 (08:22→21:55)
[2024-04-10] MEDS: polyethylene glycoL 3350 17 GM POWD.PACK PO (08:22)
[2024-04-10] MEDS: risperiDONE Oral Sol 1 MG/ML SOLUTION 0.5 MG PO ×2 (08:22→21:53)
[2024-04-10] MEDS: Miconazole Nitrate 2% Powder 85 GM Bottle 1 APPL TOPICAL ×2 (08:23→21:56)
--- NOTE | 2024-04-10 09:36 | P.PNIM_ITS ---
Subjective Subjective Date of Service: 04/10/24 Interval History: No complaint Physical Exam 2 Vital Signs: Vital Signs: Last Vital Signs Temp 97.6 F 04/10/24 07:51 Pulse 65 04/10/24 07:51 Resp 16 04/10/24 07:51 BP 165/81 H 04/10/24 07:51 Pulse Ox 94 04/10/24 07:51 O2 Del Method Room Air 04/10/24 07:51 O2 Flow Rate 2 03/28/24 07:24 BMI result Body Mass Index 20.2 Const: Other: Constitutional : Awake, not in distress Neck : Normal inspection, Supple Cardiovascular : no JVP, no lower extremity edema Skin : Warm, Dry Neurological : Alert & disoriented to place and time, No focal deficit Objective Data Active Medications Acetaminophen (Acetaminophen 325 Mg Tablet) 650 mg PO Q6H PRN PRN Reason: Pain, Mild (Pain Scale 1-3), fever or headache Last Admin: 04/04/24 14:00 Dose: 650 mg Documented By: KALANI Al Hydroxide/Mg Hydroxide (Magnesium Hydrox/Alum Hydrox 30 Ml Oral.Susp) 30 ml PO Q6H PRN PRN Reason: Constipation Amlodipine Besylate (Amlodipine Besylate 5 Mg Tablet) 5 mg PO DAILY [facility]; Protocol Last Admin: 04/10/24 08:22 Dose: 5 mg Documented By: SHLOMO Benzonatate (Benzonatate 100 Mg Capsule) 100 mg PO TID PRN PRN Reason: Cough Calcium Carbonate (Calcium Carbonate 750 Mg Tab.Chew) 750 mg PO Q4H PRN PRN Reason: Heartburn Clonidine (Clonidine 0.1 Mg Patch.Tdwk) 0.1 mg TRANSDERMA Tu@0900 [facility]; Protocol Last Admin: 04/07/24 10:17 Dose: 0.1 mg Documented By: ANTONIO Enoxaparin Sodium (Enoxaparin Sodium 40 Mg/0.4 Ml Syringe) 40 mg SUBCUT Q24H [facility] Last Admin: 04/09/24 16:50 Dose: 40 mg Documented By: RADHA Erythromycin (Erythromycin Base 0.5% Oph Oin 1 Gm Tube) 1 cm EYE-BOTH BID [facility] Last Admin: 04/10/24 08:22 Dose: 1 cm Documented By: SHLOMO Magnesium Hydroxide (Milk Of Magnesia 30 Ml Oral.Susp) 30 ml PO DAILY PRN PRN Reason: Constipation Melatonin (Melatonin 3 Mg Tablet) 6 mg PO BEDTIME PRN PRN Reason: Insomnia Last Admin: 04/01/24 19:48 Dose: 6 mg Documented By: SIMONA Miconazole Nitrate (Miconazole Nitrate 2% Powder 85 Gm Bottle) 1 appl TOPICAL BID [facility]; Protocol Last Admin: 04/10/24 08:23 Dose: 1 appl Documented By: SHLOMO Nicotine Polacrilex (Nicotine Polacrilex 2 Mg Gum) 4 mg BUCCAL Q2H PRN PRN Reason: Nicotine Cravings Ondansetron HCl (Ondansetron Hcl 4 Mg/2 Ml Vial) 4 mg IVPUSH Q8H PRN PRN Reason: Nausea and Vomiting Last Admin: 03/02/24 18:44 Dose: 4 mg Documented By: SEN Ondansetron HCl (Ondansetron Odt 4 Mg Tab.Rapdis) 4 mg TRANSLINGU Q6H PRN PRN Reason: Nausea and Vomiting Last Admin: 04/08/24 19:57 Dose: 4 mg Documented By: JENSEN Polyethylene Glycol (Polyethylene Glycol 3350 17 Gm Powd.Pack) 17 gm PO DAILY [facility] Last Admin: 04/10/24 08:22 Dose: 17 gm Documented By: SHLOMO Quetiapine Fumarate (Quetiapine Fumarate 25 Mg Tablet) 25 mg PO ONCE PRN PRN Reason: about 45 min before eeg Last Admin: 02/17/24 09:40 Dose: 25 mg Documented By: SHLOMO Risperidone (Risperidone Oral Peg 1 Mg/Ml Solution) 0.5 mg PO BID [facility] Last Admin: 04/10/24 08:22 Dose: 0.5 mg Documented By: SHLOMO Trazodone HCl (Trazodone Hcl 25 Mg Halftab) 25 mg PO BEDTIME PRN PRN Reason: Insomnia Last Admin: 04/02/24 20:26 Dose: 25 mg Documented By: AHMET Labs 04/08/24 05:03 04/08/24 05:03 Assessment and Plan (1) Cognitive and behavioral changes: Status: Acute Plan 83M PMH htn, unspecified dementia, admitted [facility] 02/13/24 for FTT, not taking meds or food, transfered to medicine 02/14/24. 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 EEG showing general slowing but no seizure disorder MED PEDS appreciated, NDD3 solids, thin liquids bilateral conjunctivitis continue eye drops Hypertension Transdermal clonidine Amlodipine Mood disorder Risperidone, trazodone DVT prophylaxis with Lovenox Full Code reason for continued hospitalization: Safe dispo The patient HCP is his step-daughter Alcides can be reached on [phone] Patient sister name is Dr. Nate Genao and her phone number is [phone] to be contacted for any updates. Quality Stroke Does the patient have a stroke diagnosis?: No VTE Prior VTE?: No VTE Risk Level:: Medical - moderate - high VTE Device Contraindication: Treatment Not Indicated VTE Drug Contraindication: N/A - Med Ordered
--- NOTE | 2024-04-10 13:09 | MHC.CM.PN ---
EMR REVIEWED. CONSERVATOR HEARING HELD 04/08, AWAITING FINANCIAL PARTICULARS SO LTC MAY BE SOUGHT. CM CONTINUES TO FOLLOW.
[2024-04-10] MEDS: Enoxaparin Sodium 40 MG/0.4 ML SYRINGE SUBCUT (14:57)
[2024-04-10 15:59] VITALS: BP 131/97; PULSE 90; RESP 12; TEMP 37; O2SAT 94
[2024-04-10 19:24] VITALS: BP 175/84; PULSE 94; RESP 17; TEMP 36.5; O2SAT 95
[2024-04-10 19:33] VITALS: BP 148/76
[2024-04-11 03:19] VITALS: BP 132/76; PULSE 69; RESP 17; TEMP 36.3; O2SAT 94
[2024-04-11 07:24] VITALS: BP 132/79; PULSE 70; RESP 16; TEMP 36; O2SAT 95
--- NOTE | 2024-04-11 08:33 | HO.PM.IMPN ---
Subjective Subjective Date of Service: 04/11/24 Interval History: No complaint Physical Exam Vital Signs: Vital Signs: Last Vital Signs Temp 96.8 F 04/11/24 07:24 Pulse 70 04/11/24 07:24 Resp 16 04/11/24 07:24 BP 132/79 04/11/24 07:24 Pulse Ox 95 04/11/24 07:24 O2 Del Method Room Air 04/11/24 07:24 O2 Flow Rate 2 03/28/24 07:24 BMI result Body Mass Index 20.2 Const: Other: Constitutional : Awake, not in distress Neck : Normal inspection, Supple Cardiovascular : no JVP, no lower extremity edema Skin : Warm, Dry Neurological : Alert & disoriented to place and time, No focal deficit Objective Data Active Medications Acetaminophen (Acetaminophen 325 Mg Tablet) 650 mg PO Q6H PRN PRN Reason: Pain, Mild (Pain Scale 1-3), fever or headache Last Admin: 04/04/24 14:00 Dose: 650 mg Documented By: KALANI Al Hydroxide/Mg Hydroxide (Magnesium Hydrox/Alum Hydrox 30 Ml Oral.Susp) 30 ml PO Q6H PRN PRN Reason: Constipation Amlodipine Besylate (Amlodipine Besylate 5 Mg Tablet) 5 mg PO DAILY [facility]; Protocol Last Admin: 04/10/24 08:22 Dose: 5 mg Documented By: SHLOMO Benzonatate (Benzonatate 100 Mg Capsule) 100 mg PO TID PRN PRN Reason: Cough Calcium Carbonate (Calcium Carbonate 750 Mg Tab.Chew) 750 mg PO Q4H PRN PRN Reason: Heartburn Clonidine (Clonidine 0.1 Mg Patch.Tdwk) 0.1 mg TRANSDERMA Tu@0900 [facility]; Protocol Last Admin: 04/07/24 10:17 Dose: 0.1 mg Documented By: ANTONIO Enoxaparin Sodium (Enoxaparin Sodium 40 Mg/0.4 Ml Syringe) 40 mg SUBCUT Q24H [facility] Last Admin: 04/10/24 14:57 Dose: 40 mg Documented By: SHLOMO Erythromycin (Erythromycin Base 0.5% Oph Oin 1 Gm Tube) 1 cm EYE-BOTH BID [facility] Last Admin: 04/10/24 21:55 Dose: 1 cm Documented By: PATRICK Magnesium Hydroxide (Milk Of Magnesia 30 Ml Oral.Susp) 30 ml PO DAILY PRN PRN Reason: Constipation Melatonin (Melatonin 3 Mg Tablet) 6 mg PO BEDTIME PRN PRN Reason: Insomnia Last Admin: 04/01/24 19:48 Dose: 6 mg Documented By: SIMONA Miconazole Nitrate (Miconazole Nitrate 2% Powder 85 Gm Bottle) 1 appl TOPICAL BID [facility]; Protocol Last Admin: 04/10/24 21:56 Dose: 1 appl Documented By: PATRICK Nicotine Polacrilex (Nicotine Polacrilex 2 Mg Gum) 4 mg BUCCAL Q2H PRN PRN Reason: Nicotine Cravings Ondansetron HCl (Ondansetron Hcl 4 Mg/2 Ml Vial) 4 mg IVPUSH Q8H PRN PRN Reason: Nausea and Vomiting Last Admin: 03/02/24 18:44 Dose: 4 mg Documented By: SEN Ondansetron HCl (Ondansetron Odt 4 Mg Tab.Rapdis) 4 mg TRANSLINGU Q6H PRN PRN Reason: Nausea and Vomiting Last Admin: 04/08/24 19:57 Dose: 4 mg Documented By: JENSEN Polyethylene Glycol (Polyethylene Glycol 3350 17 Gm Powd.Pack) 17 gm PO DAILY [facility] Last Admin: 04/10/24 08:22 Dose: 17 gm Documented By: SHLOMO Quetiapine Fumarate (Quetiapine Fumarate 25 Mg Tablet) 25 mg PO ONCE PRN PRN Reason: about 45 min before eeg Last Admin: 02/17/24 09:40 Dose: 25 mg Documented By: SHLOMO Risperidone (Risperidone Oral Peg 1 Mg/Ml Solution) 0.5 mg PO BID [facility] Last Admin: 04/10/24 21:53 Dose: 0.5 mg Documented By: PARTICK Trazodone HCl (Trazodone Hcl 25 Mg Halftab) 25 mg PO BEDTIME PRN PRN Reason: Insomnia Last Admin: 04/02/24 20:26 Dose: 25 mg Documented By: AHMET Labs 04/08/24 05:03 04/08/24 05:03 Assessment and Plan (1) Cognitive and behavioral changes: Status: Acute Plan 83M PMH htn, unspecified dementia, admitted to [facility] 02/13/24 for FTT, not taking meds or food, transfered to medicine 02/14/24. 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 Nate Genao and her phone number is [phone] to be contacted for any updates. Quality Stroke Does the patient have a stroke diagnosis?: No VTE Prior VTE?: No VTE Risk Level:: Medical - moderate - high VTE Device Contraindication: Treatment Not Indicated VTE Drug Contraindication: N/A - Med Ordered
[2024-04-11] MEDS: risperiDONE Oral Sol 1 MG/ML SOLUTION 0.5 MG PO ×2 (09:14→19:25)
[2024-04-11] MEDS: amLODIPine Besylate 5 MG TABLET PO (09:14)
[2024-04-11] MEDS: polyethylene glycoL 3350 17 GM POWD.PACK PO (09:14)
[2024-04-11] MEDS: Miconazole Nitrate 2% Powder 85 GM Bottle 1 APPL TOPICAL ×2 (09:15→19:26)
[2024-04-11] MEDS: Enoxaparin Sodium 40 MG/0.4 ML SYRINGE SUBCUT (15:56)
[2024-04-11 18:54] VITALS: BP 145/86; PULSE 100; RESP 18; TEMP 36.4; O2SAT 93
[2024-04-11] MEDS: Melatonin 3 MG TABLET 6 MG PO (19:25)
[2024-04-11] MEDS: Erythromycin Base 0.5% Oph Oin 1 GM TUBE 1 CM EYE-BOTH (19:26)
[2024-04-12 03:29] VITALS: BP 153/81; PULSE 72; RESP 16; TEMP 36.1; O2SAT 98
[2024-04-12 08:00] VITALS: BP 137/72; PULSE 61; RESP 16; TEMP 36.2; O2SAT 98
--- NOTE | 2024-04-12 09:07 | HO.PM.IMPN ---
Subjective Subjective Date of Service: 04/12/24 Interval History: No complaint Physical Exam Vital Signs: Vital Signs: Last Vital Signs Temp 97.1 F 04/12/24 08:00 Pulse 61 04/12/24 08:00 Resp 16 04/12/24 08:00 BP 137/72 04/12/24 08:00 Pulse Ox 98 04/12/24 08:00 O2 Del Method Nasal Cannula 04/12/24 08:00 O2 Flow Rate 2 03/28/24 07:24 BMI result Body Mass Index 20.2 Const: Other: Constitutional : Awake, not in distress Neck : Normal inspection, Supple Cardiovascular : no JVP, no lower extremity edema Skin : Warm, Dry Neurological : Alert & disoriented to place and time, No focal deficit Objective Data Active Medications Acetaminophen (Acetaminophen 325 Mg Tablet) 650 mg PO Q6H PRN PRN Reason: Pain, Mild (Pain Scale 1-3), fever or headache Last Admin: 04/04/24 14:00 Dose: 650 mg Documented By: KALANI Al Hydroxide/Mg Hydroxide (Magnesium Hydrox/Alum Hydrox 30 Ml Oral.Susp) 30 ml PO Q6H PRN PRN Reason: Constipation Amlodipine Besylate (Amlodipine Besylate 5 Mg Tablet) 5 mg PO DAILY [facility]; Protocol Last Admin: 04/11/24 09:14 Dose: 5 mg Documented By: WILMA Benzonatate (Benzonatate 100 Mg Capsule) 100 mg PO TID PRN PRN Reason: Cough Calcium Carbonate (Calcium Carbonate 750 Mg Tab.Chew) 750 mg PO Q4H PRN PRN Reason: Heartburn Clonidine (Clonidine 0.1 Mg Patch.Tdwk) 0.1 mg TRANSDERMA Tu@0900 [facility]; Protocol Last Admin: 04/07/24 10:17 Dose: 0.1 mg Documented By: ANTONIO Enoxaparin Sodium (Enoxaparin Sodium 40 Mg/0.4 Ml Syringe) 40 mg SUBCUT Q24H [facility] Last Admin: 04/11/24 15:56 Dose: 40 mg Documented By: WILMA Erythromycin (Erythromycin Base 0.5% Oph Oin 1 Gm Tube) 1 cm EYE-BOTH BID [facility] Last Admin: 04/11/24 19:26 Dose: 1 cm Documented By: PATRICK Magnesium Hydroxide (Milk Of Magnesia 30 Ml Oral.Susp) 30 ml PO DAILY PRN PRN Reason: Constipation Melatonin (Melatonin 3 Mg Tablet) 6 mg PO BEDTIME PRN PRN Reason: Insomnia Last Admin: 04/11/24 19:25 Dose: 6 mg Documented By: PATRICK Miconazole Nitrate (Miconazole Nitrate 2% Powder 85 Gm Bottle) 1 appl TOPICAL BID [facility]; Protocol Last Admin: 04/11/24 19:26 Dose: 1 appl Documented By: PATRICK Nicotine Polacrilex (Nicotine Polacrilex 2 Mg Gum) 4 mg BUCCAL Q2H PRN PRN Reason: Nicotine Cravings Ondansetron HCl (Ondansetron Hcl 4 Mg/2 Ml Vial) 4 mg IVPUSH Q8H PRN PRN Reason: Nausea and Vomiting Last Admin: 03/02/24 18:44 Dose: 4 mg Documented By: SEN Ondansetron HCl (Ondansetron Odt 4 Mg Tab.Rapdis) 4 mg TRANSLINGU Q6H PRN PRN Reason: Nausea and Vomiting Last Admin: 04/08/24 19:57 Dose: 4 mg Documented By: JENSEN Polyethylene Glycol (Polyethylene Glycol 3350 17 Gm Powd.Pack) 17 gm PO DAILY [facility] Last Admin: 04/11/24 09:14 Dose: 17 gm Documented By: WILMA Quetiapine Fumarate (Quetiapine Fumarate 25 Mg Tablet) 25 mg PO ONCE PRN PRN Reason: about 45 min before eeg Last Admin: 02/17/24 09:40 Dose: 25 mg Documented By: SHLOMO Risperidone (Risperidone Oral Peg 1 Mg/Ml Solution) 0.5 mg PO BID [facility] Last Admin: 04/11/24 19:25 Dose: 0.5 mg Documented By: PATRICK Trazodone HCl (Trazodone Hcl 25 Mg Halftab) 25 mg PO BEDTIME PRN PRN Reason: Insomnia Last Admin: 04/02/24 20:26 Dose: 25 mg Documented By: AHMET Labs 04/08/24 05:03 04/08/24 05:03 Assessment and Plan (1) Cognitive and behavioral changes: Status: Acute Plan 83M PMH htn, unspecified dementia, admitted to [facility] 02/13/24 for FTT, not taking meds or food, transfered to medicine 02/14/24. 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 Nate Genao and her phone number is [phone] to be contacted for any updates. Quality Stroke Does the patient have a stroke diagnosis?: No VTE Prior VTE?: No VTE Risk Level:: Medical - moderate - high VTE Device Contraindication: Treatment Not Indicated VTE Drug Contraindication: N/A - Med Ordered
[2024-04-12] MEDS: risperiDONE Oral Sol 1 MG/ML SOLUTION 0.5 MG PO ×2 (10:28→20:00)
[2024-04-12] MEDS: amLODIPine Besylate 5 MG TABLET PO (10:28)
[2024-04-12] MEDS: polyethylene glycoL 3350 17 GM POWD.PACK PO (10:28)
[2024-04-12] MEDS: Miconazole Nitrate 2% Powder 85 GM Bottle 1 APPL TOPICAL ×2 (10:29→20:03)
[2024-04-12] MEDS: Erythromycin Base 0.5% Oph Oin 1 GM TUBE 1 CM EYE-BOTH ×2 (10:29→20:01)
[2024-04-12 15:28] VITALS: BP 131/70; PULSE 67; RESP 18; TEMP 36.4; O2SAT 96
[2024-04-12 20:00] VITALS: BP 134/73; PULSE 72; RESP 18; TEMP 36.3; O2SAT 95
[2024-04-13 03:43] VITALS: BP 124/64; PULSE 64; RESP 16; TEMP 36.2; O2SAT 95
[2024-04-13 07:08] VITALS: BP 124/69; PULSE 64; RESP 16; TEMP 36.3; O2SAT 96
[2024-04-13] MEDS: risperiDONE Oral Sol 1 MG/ML SOLUTION 0.5 MG PO ×2 (08:20→19:42)
[2024-04-13] MEDS: amLODIPine Besylate 5 MG TABLET PO (08:21)
[2024-04-13] MEDS: Erythromycin Base 0.5% Oph Oin 1 GM TUBE 1 CM EYE-BOTH ×2 (08:21→19:42)
[2024-04-13] MEDS: polyethylene glycoL 3350 17 GM POWD.PACK PO (08:21)
[2024-04-13] MEDS: Miconazole Nitrate 2% Powder 85 GM Bottle 1 APPL TOPICAL ×2 (08:21→19:42)
--- NOTE | 2024-04-13 08:34 | HO.PM.IMPN ---
Subjective Subjective Date of Service: 04/13/24 Interval History: No complaint Physical Exam Vital Signs: Vital Signs: Last Vital Signs Temp 97.4 F 04/13/24 07:08 Pulse 64 04/13/24 07:08 Resp 16 04/13/24 07:08 BP 124/69 04/13/24 07:08 Pulse Ox 96 04/13/24 07:08 O2 Del Method Room Air 04/13/24 07:08 O2 Flow Rate 2 03/28/24 07:24 BMI result Body Mass Index 20.2 Const: Other: Constitutional : Awake, not in distress Neck : Normal inspection, Supple Cardiovascular : no JVP, no lower extremity edema Skin : Warm, Dry Neurological : Alert & disoriented to place and time, No focal deficit Objective Data Active Medications Acetaminophen (Acetaminophen 325 Mg Tablet) 650 mg PO Q6H PRN PRN Reason: Pain, Mild (Pain Scale 1-3), fever or headache Last Admin: 04/04/24 14:00 Dose: 650 mg Documented By: KALANI Al Hydroxide/Mg Hydroxide (Magnesium Hydrox/Alum Hydrox 30 Ml Oral.Susp) 30 ml PO Q6H PRN PRN Reason: Constipation Amlodipine Besylate (Amlodipine Besylate 5 Mg Tablet) 5 mg PO DAILY [facility]; Protocol Last Admin: 04/13/24 08:21 Dose: 5 mg Documented By: RADHA Benzonatate (Benzonatate 100 Mg Capsule) 100 mg PO TID PRN PRN Reason: Cough Calcium Carbonate (Calcium Carbonate 750 Mg Tab.Chew) 750 mg PO Q4H PRN PRN Reason: Heartburn Clonidine (Clonidine 0.1 Mg Patch.Tdwk) 0.1 mg TRANSDERMA Tu@0900 [facility]; Protocol Last Admin: 04/07/24 10:17 Dose: 0.1 mg Documented By: ANTONIO Enoxaparin Sodium (Enoxaparin Sodium 40 Mg/0.4 Ml Syringe) 40 mg SUBCUT Q24H [facility] Last Admin: 04/12/24 15:33 Dose: Not Given Documented By: WILMA Non-Admin Reason: Patient Refused Erythromycin (Erythromycin Base 0.5% Oph Oin 1 Gm Tube) 1 cm EYE-BOTH BID [facility] Last Admin: 04/13/24 08:21 Dose: 1 cm Documented By: RADHA Magnesium Hydroxide (Milk Of Magnesia 30 Ml Oral.Susp) 30 ml PO DAILY PRN PRN Reason: Constipation Melatonin (Melatonin 3 Mg Tablet) 6 mg PO BEDTIME PRN PRN Reason: Insomnia Last Admin: 04/11/24 19:25 Dose: 6 mg Documented By: PATRICK Miconazole Nitrate (Miconazole Nitrate 2% Powder 85 Gm Bottle) 1 appl TOPICAL BID [facility]; Protocol Last Admin: 04/13/24 08:21 Dose: 1 appl Documented By: RADHA Nicotine Polacrilex (Nicotine Polacrilex 2 Mg Gum) 4 mg BUCCAL Q2H PRN PRN Reason: Nicotine Cravings Ondansetron HCl (Ondansetron Hcl 4 Mg/2 Ml Vial) 4 mg IVPUSH Q8H PRN PRN Reason: Nausea and Vomiting Last Admin: 03/02/24 18:44 Dose: 4 mg Documented By: SEN Ondansetron HCl (Ondansetron Odt 4 Mg Tab.Rapdis) 4 mg TRANSLINGU Q6H PRN PRN Reason: Nausea and Vomiting Last Admin: 04/08/24 19:57 Dose: 4 mg Documented By: JENSEN Polyethylene Glycol (Polyethylene Glycol 3350 17 Gm Powd.Pack) 17 gm PO DAILY [facility] Last Admin: 04/13/24 08:21 Dose: 17 gm Documented By: RADHA Quetiapine Fumarate (Quetiapine Fumarate 25 Mg Tablet) 25 mg PO ONCE PRN PRN Reason: about 45 min before eeg Last Admin: 02/17/24 09:40 Dose: 25 mg Documented By: SHLOMO Risperidone (Risperidone Oral Peg 1 Mg/Ml Solution) 0.5 mg PO BID [facility] Last Admin: 04/13/24 08:20 Dose: 0.5 mg Documented By: RADHA Trazodone HCl (Trazodone Hcl 25 Mg Halftab) 25 mg PO BEDTIME PRN PRN Reason: Insomnia Last Admin: 04/02/24 20:26 Dose: 25 mg Documented By: AHMET Labs 04/08/24 05:03 04/08/24 05:03 Assessment and Plan (1) Cognitive and behavioral changes: Status: Acute Plan 83M PMH htn, unspecified dementia, admitted to [facility] 02/13/24 for FTT, not taking meds or food, transfered to medicine 02/14/24. 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 EEG showing general slowing but no seizure disorder SERGER appreciated, NDD3 solids, thin liquids bilateral conjunctivitis continue eye drops Hypertension Transdermal clonidine Amlodipine Mood disorder Risperidone, trazodone DVT prophylaxis with Lovenox Full Code reason for continued hospitalization: Safe dispo The patient HCP is his step-daughter Alcides can be reached on [phone] Patient sister name is Dr. Nate Genao and her phone number is [phone] to be contacted for any updates. Quality Stroke Does the patient have a stroke diagnosis?: No VTE Prior VTE?: No VTE Risk Level:: Medical - moderate - high VTE Device Contraindication: Treatment Not Indicated VTE Drug Contraindication: N/A - Med Ordered
[2024-04-13 13:52] VITALS: BMI 21.9
--- NOTE | 2024-04-13 15:11 | MHC.CLN ---
F/U DIET=REGULAR, CHOPPED WITH FORTIFIED ICE CREAM TID. SUPPLEMENT PROVIDES 870 KCALS, 27 G PROTEIN. PO INTAKE CONTINUES TO BE VARIABLE, 0-75%. ODETTE=15. SKIN WITH REDNESS TO COCCYX. CONTINUE TO MONITOR PO INTAKE AND ENCOURAGE SUPPLEMENTS. RD TO CONTINUE TO FOLLOW WEEKLY.
[2024-04-13 15:12] VITALS: BP 141/76; PULSE 90; RESP 16; TEMP 36.1; O2SAT 96
--- NOTE | 2024-04-13 15:15 | MHC.CM.PN ---
CM AWAITS [employer] PPW TO BE COMPLETED S/P HEARING. PT WILL NEED LTC ONCE FUNDS ARE DETERMINED.
[2024-04-13] MEDS: Enoxaparin Sodium 40 MG/0.4 ML SYRINGE SUBCUT (15:56)
[2024-04-13 18:59] VITALS: BP 136/84; PULSE 108; RESP 17; TEMP 36.2; O2SAT 96
[2024-04-14 04:00] VITALS: BP 130/62; PULSE 105; RESP 17; TEMP 36.4; O2SAT 95
[2024-04-14 07:13] VITALS: BP 134/68; PULSE 64; RESP 20; TEMP 36.2; O2SAT 96
[2024-04-14] MEDS: risperiDONE Oral Sol 1 MG/ML SOLUTION 0.5 MG PO ×2 (08:18→19:23)
[2024-04-14] MEDS: amLODIPine Besylate 5 MG TABLET PO (08:18)
[2024-04-14] MEDS: polyethylene glycoL 3350 17 GM POWD.PACK PO (08:18)
[2024-04-14] MEDS: cloNIDine 0.1 MG PATCH.TDWK TRANSDERMA (08:18)
[2024-04-14] MEDS: Erythromycin Base 0.5% Oph Oin 1 GM TUBE 1 CM EYE-BOTH (08:19)
[2024-04-14] MEDS: Miconazole Nitrate 2% Powder 85 GM Bottle 1 APPL TOPICAL ×2 (08:19→19:22)
--- NOTE | 2024-04-14 09:04 | HO.PM.IMPN ---
Subjective Subjective Date of Service: 04/14/24 Interval History: No complaint Physical Exam Vital Signs: Vital Signs: Last Vital Signs Temp 97.1 F 04/14/24 07:13 Pulse 64 04/14/24 07:13 Resp 20 04/14/24 07:13 BP 134/68 04/14/24 07:13 Pulse Ox 96 04/14/24 07:13 O2 Del Method Room Air 04/14/24 07:13 O2 Flow Rate 2 03/28/24 07:24 BMI result Body Mass Index 21.9 Const: Other: Constitutional : Awake, not in distress Neck : Normal inspection, Supple Cardiovascular : no JVP, no lower extremity edema Skin : Warm, Dry Neurological : Alert & disoriented to place and time, No focal deficit Objective Data Active Medications Acetaminophen (Acetaminophen 325 Mg Tablet) 650 mg PO Q6H PRN PRN Reason: Pain, Mild (Pain Scale 1-3), fever or headache Last Admin: 04/04/24 14:00 Dose: 650 mg Documented By: KALANI Al Hydroxide/Mg Hydroxide (Magnesium Hydrox/Alum Hydrox 30 Ml Oral.Susp) 30 ml PO Q6H PRN PRN Reason: Constipation Amlodipine Besylate (Amlodipine Besylate 5 Mg Tablet) 5 mg PO DAILY [facility]; Protocol Last Admin: 04/14/24 08:18 Dose: 5 mg Documented By: RADHA Benzonatate (Benzonatate 100 Mg Capsule) 100 mg PO TID PRN PRN Reason: Cough Calcium Carbonate (Calcium Carbonate 750 Mg Tab.Chew) 750 mg PO Q4H PRN PRN Reason: Heartburn Clonidine (Clonidine 0.1 Mg Patch.Tdwk) 0.1 mg TRANSDERMA Tu@0900 [facility]; Protocol Last Admin: 04/14/24 08:18 Dose: 0.1 mg Documented By: RADHA Enoxaparin Sodium (Enoxaparin Sodium 40 Mg/0.4 Ml Syringe) 40 mg SUBCUT Q24H [facility] Last Admin: 04/13/24 15:56 Dose: 40 mg Documented By: RADHA Erythromycin (Erythromycin Base 0.5% Oph Oin 1 Gm Tube) 1 cm EYE-BOTH BID [facility] Last Admin: 04/14/24 08:19 Dose: 1 cm Documented By: RADHA Magnesium Hydroxide (Milk Of Magnesia 30 Ml Oral.Susp) 30 ml PO DAILY PRN PRN Reason: Constipation Melatonin (Melatonin 3 Mg Tablet) 6 mg PO BEDTIME PRN PRN Reason: Insomnia Last Admin: 04/11/24 19:25 Dose: 6 mg Documented By: PATRICK Miconazole Nitrate (Miconazole Nitrate 2% Powder 85 Gm Bottle) 1 appl TOPICAL BID [facility]; Protocol Last Admin: 04/14/24 08:19 Dose: 1 appl Documented By: RADHA Nicotine Polacrilex (Nicotine Polacrilex 2 Mg Gum) 4 mg BUCCAL Q2H PRN PRN Reason: Nicotine Cravings Ondansetron HCl (Ondansetron Hcl 4 Mg/2 Ml Vial) 4 mg IVPUSH Q8H PRN PRN Reason: Nausea and Vomiting Last Admin: 03/02/24 18:44 Dose: 4 mg Documented By: SEN Ondansetron HCl (Ondansetron Odt 4 Mg Tab.Rapdis) 4 mg TRANSLINGU Q6H PRN PRN Reason: Nausea and Vomiting Last Admin: 04/08/24 19:57 Dose: 4 mg Documented By: JENSEN Polyethylene Glycol (Polyethylene Glycol 3350 17 Gm Powd.Pack) 17 gm PO DAILY [facility] Last Admin: 04/14/24 08:18 Dose: 17 gm Documented By: RADHA Quetiapine Fumarate (Quetiapine Fumarate 25 Mg Tablet) 25 mg PO ONCE PRN PRN Reason: about 45 min before eeg Last Admin: 02/17/24 09:40 Dose: 25 mg Documented By: SHLOMO Risperidone (Risperidone Oral Peg 1 Mg/Ml Solution) 0.5 mg PO BID [facility] Last Admin: 04/14/24 08:18 Dose: 0.5 mg Documented By: RADHA Trazodone HCl (Trazodone Hcl 25 Mg Halftab) 25 mg PO BEDTIME PRN PRN Reason: Insomnia Last Admin: 04/02/24 20:26 Dose: 25 mg Documented By: AHMET Labs 04/08/24 05:03 04/08/24 05:03 Assessment and Plan (1) Cognitive and behavioral changes: Status: Acute Plan 83M PMH htn, unspecified dementia, admitted to [facility] 02/13/24 for FTT, not taking meds or food, transfered to medicine 02/14/24. 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 Nate Genao and her phone number is [phone] to be contacted for any updates. Quality Stroke Does the patient have a stroke diagnosis?: No VTE Prior VTE?: No VTE Risk Level:: Medical - moderate - high VTE Device Contraindication: Treatment Not Indicated VTE Drug Contraindication: N/A - Med Ordered
[2024-04-14 15:36] VITALS: BP 156/72; PULSE 80; RESP 16; TEMP 36.3; O2SAT 94
[2024-04-14] MEDS: Enoxaparin Sodium 40 MG/0.4 ML SYRINGE SUBCUT (16:01)
[2024-04-14 19:16] VITALS: BP 174/81; PULSE 97; RESP 17; TEMP 36.7; O2SAT 94
[2024-04-15 03:40] VITALS: BP 169/72; PULSE 100; RESP 17; TEMP 36.2; O2SAT 96
[2024-04-15 07:38] VITALS: BP 142/76; PULSE 70; RESP 14; TEMP 36.7; O2SAT 97
[2024-04-15] MEDS: risperiDONE Oral Sol 1 MG/ML SOLUTION 0.5 MG PO ×2 (08:05→21:20)
[2024-04-15] MEDS: Miconazole Nitrate 2% Powder 85 GM Bottle 1 APPL TOPICAL ×2 (08:05→21:21)
--- NOTE | 2024-04-15 10:24 | PC.NURSE ---
Pt refused most meds, care, and breakfast this morning and threatening to kill staff if not left alone
--- NOTE | 2024-04-15 12:11 | HO.PM.IMPN ---
Subjective Subjective Date of Service: 04/15/24 Interval History: seen and evaluated this morning laying comfortable in his bed no other events Review of Systems Review of Systems: Yes all other systems are reviewed and are negative Physical Exam Vital Signs: Vital Signs: Last Vital Signs Temp 98.1 F 04/15/24 07:38 Pulse 70 04/15/24 07:38 Resp 14 04/15/24 07:38 BP 142/76 H 04/15/24 07:38 Pulse Ox 97 04/15/24 07:38 O2 Del Method Room Air 04/15/24 07:38 O2 Flow Rate 2 03/28/24 07:24 BMI result Body Mass Index 21.9 Const: Other: Constitutional : Awake, not in distress Eyes: Left eye conjunctivitis Neck : Normal inspection, Supple Cardiovascular : no JVP, no lower extremity edema Skin : Warm, Dry Neurological : Alert & disoriented to place and time, No focal deficit Objective Data Active Medications Acetaminophen (Acetaminophen 325 Mg Tablet) 650 mg PO Q6H PRN PRN Reason: Pain, Mild (Pain Scale 1-3), fever or headache Last Admin: 04/04/24 14:00 Dose: 650 mg Documented By: KALANI Al Hydroxide/Mg Hydroxide (Magnesium Hydrox/Alum Hydrox 30 Ml Oral.Susp) 30 ml PO Q6H PRN PRN Reason: Constipation Amlodipine Besylate (Amlodipine Besylate 5 Mg Tablet) 5 mg PO DAILY [facility]; Protocol Last Admin: 04/15/24 08:10 Dose: Not Given Documented By: TAWANA Non-Admin Reason: Patient Refused Comments: pt would not take pills or drink fluids for this RN, was able to give risperidone liquid Benzonatate (Benzonatate 100 Mg Capsule) 100 mg PO TID PRN PRN Reason: Cough Calcium Carbonate (Calcium Carbonate 750 Mg Tab.Chew) 750 mg PO Q4H PRN PRN Reason: Heartburn Clonidine (Clonidine 0.1 Mg Patch.Tdwk) 0.1 mg TRANSDERMA Tu@0900 [facility]; Protocol Last Admin: 04/14/24 08:18 Dose: 0.1 mg Documented By: RADHA Enoxaparin Sodium (Enoxaparin Sodium 40 Mg/0.4 Ml Syringe) 40 mg SUBCUT Q24H [facility] Last Admin: 04/14/24 16:01 Dose: 40 mg Documented By: ALONDRA Magnesium Hydroxide (Milk Of Magnesia 30 Ml Oral.Susp) 30 ml PO DAILY PRN PRN Reason: Constipation Melatonin (Melatonin 3 Mg Tablet) 6 mg PO BEDTIME PRN PRN Reason: Insomnia Last Admin: 04/11/24 19:25 Dose: 6 mg Documented By: PATRICK Miconazole Nitrate (Miconazole Nitrate 2% Powder 85 Gm Bottle) 1 appl TOPICAL BID [facility]; Protocol Last Admin: 04/15/24 08:05 Dose: 1 appl Documented By: TAWANA Nicotine Polacrilex (Nicotine Polacrilex 2 Mg Gum) 4 mg BUCCAL Q2H PRN PRN Reason: Nicotine Cravings Ondansetron HCl (Ondansetron Hcl 4 Mg/2 Ml Vial) 4 mg IVPUSH Q8H PRN PRN Reason: Nausea and Vomiting Last Admin: 03/02/24 18:44 Dose: 4 mg Documented By: SEN Ondansetron HCl (Ondansetron Odt 4 Mg Tab.Rapdis) 4 mg TRANSLINGU Q6H PRN PRN Reason: Nausea and Vomiting Last Admin: 04/08/24 19:57 Dose: 4 mg Documented By: GERARDO-KAVYADRNeville Polyethylene Glycol (Polyethylene Glycol 3350 17 Gm Powd.Pack) 17 gm PO DAILY [facility] Last Admin: 04/15/24 08:10 Dose: Not Given Documented By: TAWANA Non-Admin Reason: Patient Refused Comments: pt would not drink any fluids for this RN Quetiapine Fumarate (Quetiapine Fumarate 25 Mg Tablet) 25 mg PO ONCE PRN PRN Reason: about 45 min before eeg Last Admin: 02/17/24 09:40 Dose: 25 mg Documented By: SHLOMO Risperidone (Risperidone Oral Peg 1 Mg/Ml Solution) 0.5 mg PO BID [facility] Last Admin: 04/15/24 08:05 Dose: 0.5 mg Documented By: TAWANA Trazodone HCl (Trazodone Hcl 25 Mg Halftab) 25 mg PO BEDTIME PRN PRN Reason: Insomnia Last Admin: 04/02/24 20:26 Dose: 25 mg Documented By: AHMET Labs 04/08/24 05:03 04/08/24 05:03 Assessment and Plan (1) Cognitive and behavioral changes: Status: Acute Plan 83M PMH htn, unspecified dementia, admitted to [facility] 02/13/24 for FTT, not taking meds or food, transfered to medicine 02/14/24. 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 Nate Genao and her phone number is [phone] to be contacted for any updates. Quality Stroke Does the patient have a stroke diagnosis?: No VTE Prior VTE?: No VTE Risk Level:: Medical - moderate - high VTE Device Contraindication: Treatment Not Indicated VTE Drug Contraindication: N/A - Med Ordered
[2024-04-15 15:58] VITALS: BP 154/89; PULSE 85; RESP 16; TEMP 36.8; O2SAT 98
[2024-04-15] MEDS: Enoxaparin Sodium 40 MG/0.4 ML SYRINGE SUBCUT (16:41)
[2024-04-15 19:37] VITALS: BP 153/81; PULSE 79; RESP 16; TEMP 36.5; O2SAT 95
[2024-04-16] VITALS: RESP 16
[2024-04-16 02:56] VITALS: BP 140/86; PULSE 80; RESP 16; TEMP 36.2; O2SAT 94
[2024-04-16 08:00] VITALS: BP 168/90; PULSE 82; RESP 18; TEMP 36.6; O2SAT 92
--- NOTE | 2024-04-16 08:11 | P.PNIM_ITS ---
Subjective Subjective Date of Service: 04/16/24 Interval History: seen and evaluated this morning laying comfortable in his bed No new events Physical Exam 2 Vital Signs: Vital Signs: Last Vital Signs Temp 97.1 F 04/16/24 02:56 Pulse 80 04/16/24 02:56 Resp 16 04/16/24 02:56 BP 140/86 H 04/16/24 02:56 Pulse Ox 94 04/16/24 02:56 O2 Del Method Room Air 04/16/24 02:56 O2 Flow Rate 2 03/28/24 07:24 BMI result Body Mass Index 21.9 Const: Other: Constitutional : Awake, not in distress Eyes: Left eye conjunctivitis Neck : Normal inspection, Supple Cardiovascular : no JVP, no lower extremity edema Skin : Warm, Dry Neurological : Alert & disoriented to place and time, No focal deficit Objective Data Active Medications Acetaminophen (Acetaminophen 325 Mg Tablet) 650 mg PO Q6H PRN PRN Reason: Pain, Mild (Pain Scale 1-3), fever or headache Last Admin: 04/04/24 14:00 Dose: 650 mg Documented By: KALANI Al Hydroxide/Mg Hydroxide (Magnesium Hydrox/Alum Hydrox 30 Ml Oral.Susp) 30 ml PO Q6H PRN PRN Reason: Constipation Amlodipine Besylate (Amlodipine Besylate 5 Mg Tablet) 5 mg PO DAILY [facility]; Protocol Last Admin: 04/15/24 08:10 Dose: Not Given Documented By: TAWANA Non-Admin Reason: Patient Refused Comments: pt would not take pills or drink fluids for this RN, was able to give risperidone liquid Benzonatate (Benzonatate 100 Mg Capsule) 100 mg PO TID PRN PRN Reason: Cough Calcium Carbonate (Calcium Carbonate 750 Mg Tab.Chew) 750 mg PO Q4H PRN PRN Reason: Heartburn Clonidine (Clonidine 0.1 Mg Patch.Tdwk) 0.1 mg TRANSDERMA Tu@0900 [facility]; Protocol Last Admin: 04/14/24 08:18 Dose: 0.1 mg Documented By: RADHA Enoxaparin Sodium (Enoxaparin Sodium 40 Mg/0.4 Ml Syringe) 40 mg SUBCUT Q24H [facility] Last Admin: 04/15/24 16:41 Dose: 40 mg Documented By: TAWANA Magnesium Hydroxide (Milk Of Magnesia 30 Ml Oral.Susp) 30 ml PO DAILY PRN PRN Reason: Constipation Melatonin (Melatonin 3 Mg Tablet) 6 mg PO BEDTIME PRN PRN Reason: Insomnia Last Admin: 04/11/24 19:25 Dose: 6 mg Documented By: PATRICK Miconazole Nitrate (Miconazole Nitrate 2% Powder 85 Gm Bottle) 1 appl TOPICAL BID [facility]; Protocol Last Admin: 04/15/24 21:21 Dose: 1 appl Documented By: SIMONA Nicotine Polacrilex (Nicotine Polacrilex 2 Mg Gum) 4 mg BUCCAL Q2H PRN PRN Reason: Nicotine Cravings Ondansetron HCl (Ondansetron Hcl 4 Mg/2 Ml Vial) 4 mg IVPUSH Q8H PRN PRN Reason: Nausea and Vomiting Last Admin: 03/02/24 18:44 Dose: 4 mg Documented By: SEN Ondansetron HCl (Ondansetron Odt 4 Mg Tab.Rapdis) 4 mg TRANSLINGU Q6H PRN PRN Reason: Nausea and Vomiting Last Admin: 04/08/24 19:57 Dose: 4 mg Documented By: JENSEN Polyethylene Glycol (Polyethylene Glycol 3350 17 Gm Powd.Pack) 17 gm PO DAILY [facility] Last Admin: 04/15/24 08:10 Dose: Not Given Documented By: TAWANA Non-Admin Reason: Patient Refused Comments: pt would not drink any fluids for this RN Quetiapine Fumarate (Quetiapine Fumarate 25 Mg Tablet) 25 mg PO ONCE PRN PRN Reason: about 45 min before eeg Last Admin: 02/17/24 09:40 Dose: 25 mg Documented By: SHLOMO Risperidone (Risperidone Oral Peg 1 Mg/Ml Solution) 0.5 mg PO BID [facility] Last Admin: 04/15/24 21:20 Dose: 0.5 mg Documented By: SIMONA Trazodone HCl (Trazodone Hcl 25 Mg Halftab) 25 mg PO BEDTIME PRN PRN Reason: Insomnia Last Admin: 04/02/24 20:26 Dose: 25 mg Documented By: AHMET Labs 04/08/24 05:03 04/08/24 05:03 Assessment and Plan (1) Cognitive and behavioral changes: Status: Acute Plan 83M PMH htn, unspecified dementia, admitted to [facility] 02/13/24 for FTT, not taking meds or food, transfered to medicine 02/14/24. 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 Nate Genao and her phone number is [phone] to be contacted for any updates. Quality Stroke Does the patient have a stroke diagnosis?: No VTE Prior VTE?: No VTE Risk Level:: Medical - moderate - high VTE Device Contraindication: Treatment Not Indicated VTE Drug Contraindication: N/A - Med Ordered
[2024-04-16] MEDS: risperiDONE Oral Sol 1 MG/ML SOLUTION 0.5 MG PO ×2 (08:43→20:04)
[2024-04-16] MEDS: Miconazole Nitrate 2% Powder 85 GM Bottle 1 APPL TOPICAL ×2 (08:44→20:05)
--- NOTE | 2024-04-16 12:16 | MHC.CM.PN ---
Conservatorship 04/08/24. DP LTC via BLS. Once financials are able to be accessed. The M.H. application can be started.
--- NOTE | 2024-04-16 13:41 | PC.NURSE ---
pt refused amlodipine and miralax. Attempted x2 to give amlodipine with pudding, then crushed in juice. Pt spit out both times.
--- NOTE | 2024-04-16 13:42 | PC.NURSE ---
elevated bp. 190s/90s automated, 160s/90s manual. notified
[2024-04-16 15:20] VITALS: BP 177/86; PULSE 101; RESP 18; TEMP 36.1; O2SAT 96
[2024-04-16] MEDS: Enoxaparin Sodium 40 MG/0.4 ML SYRINGE SUBCUT (16:36)
--- NOTE | 2024-04-16 17:20 | PC.NURSE ---
Pt refused breakfast and ate only a magic cup for lunch, MD aware of poor intake
[2024-04-16 19:09] VITALS: BP 160/88; RESP 18; TEMP 37.1; O2SAT 95
[2024-04-16] MEDS: Melatonin 3 MG TABLET 6 MG PO (20:04)
[2024-04-17 04:00] VITALS: BP 138/74; PULSE 82; RESP 18; TEMP 36.6; O2SAT 94
[2024-04-17 08:00] VITALS: BP 107/51; PULSE 64; RESP 16; TEMP 36.3
[2024-04-17] MEDS: amLODIPine Besylate 5 MG TABLET PO (09:27)
[2024-04-17] MEDS: risperiDONE Oral Sol 1 MG/ML SOLUTION 0.5 MG PO ×2 (09:28→21:05)
[2024-04-17] MEDS: polyethylene glycoL 3350 17 GM POWD.PACK PO (09:28)
[2024-04-17] MEDS: Miconazole Nitrate 2% Powder 85 GM Bottle 1 APPL TOPICAL ×2 (09:32→21:05)
--- NOTE | 2024-04-17 12:59 | MHC.CM.PN ---
PT AWAITING MH [facility] AND LTC PLACEMENT
[2024-04-17 15:50] VITALS: BP 163/81; PULSE 97; RESP 18; TEMP 36.3; O2SAT 95
--- NOTE | 2024-04-17 17:04 | HO.PM.IMPN ---
Subjective Subjective Date of Service: 04/17/24 Interval History: unspecified dementia Review of Systems seems similar. Physical Exam Vital Signs: Vital Signs: Last Vital Signs Temp 97.4 F 04/17/24 15:50 Pulse 97 04/17/24 15:50 Resp 18 04/17/24 15:50 BP 163/81 H 04/17/24 15:50 Pulse Ox 95 04/17/24 15:50 O2 Del Method Room Air 04/17/24 15:50 O2 Flow Rate 2 03/28/24 07:24 BMI result Body Mass Index 21.9 Constitutional : Awake, not in distress Eyes: Left eye conjunctivitis Neck : Normal inspection, Supple Cardiovascular : no JVP, no lower extremity edema Skin : Warm, Dry Neurological : Alert & disoriented to place and time, No focal deficit Objective Data Active Medications Acetaminophen (Acetaminophen 325 Mg Tablet) 650 mg PO Q6H PRN PRN Reason: Pain, Mild (Pain Scale 1-3), fever or headache Last Admin: 04/04/24 14:00 Dose: 650 mg Documented By: KALANI Al Hydroxide/Mg Hydroxide (Magnesium Hydrox/Alum Hydrox 30 Ml Oral.Susp) 30 ml PO Q6H PRN PRN Reason: Constipation Benzonatate (Benzonatate 100 Mg Capsule) 100 mg PO TID PRN PRN Reason: Cough Calcium Carbonate (Calcium Carbonate 750 Mg Tab.Chew) 750 mg PO Q4H PRN PRN Reason: Heartburn Clonidine (Clonidine 0.1 Mg Patch.Tdwk) 0.1 mg TRANSDERMA Tu@0900 [facility]; Protocol Last Admin: 04/14/24 08:18 Dose: 0.1 mg Documented By: RADHA Enoxaparin Sodium (Enoxaparin Sodium 40 Mg/0.4 Ml Syringe) 40 mg SUBCUT Q24H [facility] Last Admin: 04/16/24 16:36 Dose: 40 mg Documented By: TAWANA Magnesium Hydroxide (Milk Of Magnesia 30 Ml Oral.Susp) 30 ml PO DAILY PRN PRN Reason: Constipation Melatonin (Melatonin 3 Mg Tablet) 6 mg PO BEDTIME PRN PRN Reason: Insomnia Last Admin: 04/16/24 20:04 Dose: 6 mg Documented By: AHMET Miconazole Nitrate (Miconazole Nitrate 2% Powder 85 Gm Bottle) 1 appl TOPICAL BID [facility]; Protocol Last Admin: 04/17/24 09:32 Dose: 1 appl Documented By: TAYLOR Nicotine Polacrilex (Nicotine Polacrilex 2 Mg Gum) 4 mg BUCCAL Q2H PRN PRN Reason: Nicotine Cravings Ondansetron HCl (Ondansetron Hcl 4 Mg/2 Ml Vial) 4 mg IVPUSH Q8H PRN PRN Reason: Nausea and Vomiting Last Admin: 03/02/24 18:44 Dose: 4 mg Documented By: SEN Ondansetron HCl (Ondansetron Odt 4 Mg Tab.Rapdis) 4 mg TRANSLINGU Q6H PRN PRN Reason: Nausea and Vomiting Last Admin: 04/08/24 19:57 Dose: 4 mg Documented By: GERARDO-ZADRNeville Polyethylene Glycol (Polyethylene Glycol 3350 17 Gm Powd.Pack) 17 gm PO DAILY [facility] Last Admin: 04/17/24 09:28 Dose: 17 gm Documented By: TAYLOR Quetiapine Fumarate (Quetiapine Fumarate 25 Mg Tablet) 25 mg PO ONCE PRN PRN Reason: about 45 min before eeg Last Admin: 02/17/24 09:40 Dose: 25 mg Documented By: SHLOMO Risperidone (Risperidone Oral Peg 1 Mg/Ml Solution) 0.5 mg PO BID [facility] Last Admin: 04/17/24 09:28 Dose: 0.5 mg Documented By: TAYLOR Trazodone HCl (Trazodone Hcl 25 Mg Halftab) 25 mg PO BEDTIME PRN PRN Reason: Insomnia Last Admin: 04/02/24 20:26 Dose: 25 mg Documented By: AHMET Labs 04/08/24 05:03 04/08/24 05:03 Assessment and Plan (1) Cognitive and behavioral changes: Status: Acute Assessment and Plan: 83M PMH htn, unspecified dementia, admitted to [facility] 02/13/24 for FTT, not taking meds or food, transfered to medicine 02/14/24. 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 Nate Genao and her phone number is [phone] to be contacted for any updates. Quality Stroke Does the patient have a stroke diagnosis?: No VTE Prior VTE?: No VTE Risk Level:: Medical - moderate - high VTE Device Contraindication: Treatment Not Indicated VTE Drug Contraindication: N/A - Med Ordered
[2024-04-17] MEDS: Enoxaparin Sodium 40 MG/0.4 ML SYRINGE SUBCUT (17:30)
[2024-04-17 19:47] VITALS: BP 144/70; PULSE 77; RESP 20; TEMP 36.1; O2SAT 95
[2024-04-17] MEDS: Melatonin 3 MG TABLET 6 MG PO (21:05)
[2024-04-18 02:50] VITALS: BP 125/67; PULSE 75; RESP 18; TEMP 36.2; O2SAT 93
[2024-04-18] MEDS: risperiDONE Oral Sol 1 MG/ML SOLUTION 0.5 MG PO ×2 (07:21→20:31)
[2024-04-18] MEDS: polyethylene glycoL 3350 17 GM POWD.PACK PO (07:21)
[2024-04-18] MEDS: Miconazole Nitrate 2% Powder 85 GM Bottle 1 APPL TOPICAL ×2 (07:21→20:31)
[2024-04-18 07:39] VITALS: BP 139/71; PULSE 73; RESP 18; TEMP 36.2; O2SAT 94
[2024-04-18] MEDS: Acetaminophen 325 MG TABLET 650 MG PO (09:51)
--- NOTE | 2024-04-18 14:13 | HO.PM.IMPN ---
Subjective Subjective Date of Service: 04/18/24 Interval History: unspecified dementia Review of Systems seems somewhat sleepy in the morning but more awake afternoon could able to eat 30-40% meal Physical Exam Vital Signs: Vital Signs: Last Vital Signs Temp 97.1 F 04/18/24 07:39 Pulse 73 04/18/24 07:39 Resp 18 04/18/24 07:39 BP 139/71 04/18/24 07:39 Pulse Ox 94 04/18/24 07:39 O2 Del Method Room Air 04/18/24 07:39 O2 Flow Rate 2 03/28/24 07:24 BMI result Body Mass Index 21.9 Constitutional : Awake, not in distress Eyes: Left eye conjunctivitis Neck : Normal inspection, Supple Cardiovascular : no JVP, no lower extremity edema Skin : Warm, Dry Neurological : Alert & disoriented to place and time, No focal deficit Objective Data Active Medications Acetaminophen (Acetaminophen 325 Mg Tablet) 650 mg PO Q6H PRN PRN Reason: Pain, Mild (Pain Scale 1-3), fever or headache Last Admin: 04/18/24 09:51 Dose: 650 mg Documented By: TAWANA Al Hydroxide/Mg Hydroxide (Magnesium Hydrox/Alum Hydrox 30 Ml Oral.Susp) 30 ml PO Q6H PRN PRN Reason: Constipation Benzonatate (Benzonatate 100 Mg Capsule) 100 mg PO TID PRN PRN Reason: Cough Calcium Carbonate (Calcium Carbonate 750 Mg Tab.Chew) 750 mg PO Q4H PRN PRN Reason: Heartburn Clonidine (Clonidine 0.1 Mg Patch.Tdwk) 0.1 mg TRANSDERMA Tu@0900 [facility]; Protocol Last Admin: 04/14/24 08:18 Dose: 0.1 mg Documented By: RADHA Enoxaparin Sodium (Enoxaparin Sodium 40 Mg/0.4 Ml Syringe) 40 mg SUBCUT Q24H [facility] Last Admin: 04/17/24 17:30 Dose: 40 mg Documented By: TAYLOR Magnesium Hydroxide (Milk Of Magnesia 30 Ml Oral.Susp) 30 ml PO DAILY PRN PRN Reason: Constipation Melatonin (Melatonin 3 Mg Tablet) 6 mg PO BEDTIME PRN PRN Reason: Insomnia Last Admin: 04/17/24 21:05 Dose: 6 mg Documented By: AHMET Miconazole Nitrate (Miconazole Nitrate 2% Powder 85 Gm Bottle) 1 appl TOPICAL BID [facility]; Protocol Last Admin: 04/18/24 07:21 Dose: 1 appl Documented By: TAWANA Nicotine Polacrilex (Nicotine Polacrilex 2 Mg Gum) 4 mg BUCCAL Q2H PRN PRN Reason: Nicotine Cravings Ondansetron HCl (Ondansetron Hcl 4 Mg/2 Ml Vial) 4 mg IVPUSH Q8H PRN PRN Reason: Nausea and Vomiting Last Admin: 03/02/24 18:44 Dose: 4 mg Documented By: SEN Ondansetron HCl (Ondansetron Odt 4 Mg Tab.Rapdis) 4 mg TRANSLINGU Q6H PRN PRN Reason: Nausea and Vomiting Last Admin: 04/08/24 19:57 Dose: 4 mg Documented By: JENSEN Polyethylene Glycol (Polyethylene Glycol 3350 17 Gm Powd.Pack) 17 gm PO DAILY [facility] Last Admin: 04/18/24 07:21 Dose: 17 gm Documented By: TAWANA Quetiapine Fumarate (Quetiapine Fumarate 25 Mg Tablet) 25 mg PO ONCE PRN PRN Reason: about 45 min before eeg Last Admin: 02/17/24 09:40 Dose: 25 mg Documented By: SHLOMO Risperidone (Risperidone Oral Peg 1 Mg/Ml Solution) 0.5 mg PO BID [facility] Last Admin: 04/18/24 07:21 Dose: 0.5 mg Documented By: TAWANA Trazodone HCl (Trazodone Hcl 25 Mg Halftab) 25 mg PO BEDTIME PRN PRN Reason: Insomnia Last Admin: 04/02/24 20:26 Dose: 25 mg Documented By: AHMET Labs 04/08/24 05:03 04/08/24 05:03 Assessment and Plan (1) Cognitive and behavioral changes: Status: Acute Assessment and Plan: 83M PMH htn, unspecified dementia, admitted to [facility] 02/13/24 for FTT, not taking meds or food, transfered to medicine 02/14/24. 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 CJD ruled out EEG showing general slowing but no seizure disorder MUSIC ARTIST appreciated, NDD3 solids, thin liquids bilateral conjunctivitis completed treatment Hypertension Transdermal clonidine Amlodipine Mood disorder hold Risperidone, trazodone for today DVT prophylaxis with Lovenox Full Code reason for continued hospitalization: Safe dispo The patient HCP is his step-daughter Alcides can be reached on [phone] Patient sister name is Dr. Nate Genao and her phone number is [phone] to be contacted for any updates. Quality Stroke Does the patient have a stroke diagnosis?: No VTE Prior VTE?: No VTE Risk Level:: Medical - moderate - high VTE Device Contraindication: Treatment Not Indicated VTE Drug Contraindication: N/A - Med Ordered
[2024-04-18 15:22] VITALS: BP 130/70; PULSE 73; RESP 18; TEMP 36; O2SAT 95
[2024-04-18] MEDS: Enoxaparin Sodium 40 MG/0.4 ML SYRINGE SUBCUT (16:33)
[2024-04-18 19:19] VITALS: BP 151/80; PULSE 89; RESP 20; TEMP 36.7; O2SAT 95
[2024-04-18] MEDS: Melatonin 3 MG TABLET 6 MG PO (20:31)
[2024-04-19 02:37] VITALS: BP 135/74; PULSE 69; RESP 16; TEMP 36.1; O2SAT 93
[2024-04-19 07:45] VITALS: BP 154/79; PULSE 88; RESP 18; TEMP 36.7; O2SAT 95
[2024-04-19] MEDS: polyethylene glycoL 3350 17 GM POWD.PACK PO (09:40)
[2024-04-19] MEDS: risperiDONE Oral Sol 1 MG/ML SOLUTION 0.5 MG PO ×2 (09:40→19:57)
[2024-04-19] MEDS: Miconazole Nitrate 2% Powder 85 GM Bottle 1 APPL TOPICAL ×2 (09:40→19:57)
--- NOTE | 2024-04-19 12:38 | P.PNIM_ITS ---
Subjective Subjective Date of Service: 04/19/24 Interval History: unspecified dementia Review of Systems seems more awake ,po intake somewhat improving no new overnight events Physical Exam 2 Vital Signs: Vital Signs: Last Vital Signs Temp 98.1 F 04/19/24 07:45 Pulse 88 04/19/24 07:45 Resp 18 04/19/24 07:45 BP 154/79 H 04/19/24 07:45 Pulse Ox 95 04/19/24 07:45 O2 Del Method Room Air 04/19/24 07:45 O2 Flow Rate 2 03/28/24 07:24 BMI result Body Mass Index 21.9 Constitutional : Awake, not in distress Eyes: Left eye conjunctivitis Neck : Normal inspection, Supple Cardiovascular : no JVP, no lower extremity edema Skin : Warm, Dry Neurological : Alert & disoriented to place and time, No focal deficit Objective Data Active Medications Acetaminophen (Acetaminophen 325 Mg Tablet) 650 mg PO Q6H PRN PRN Reason: Pain, Mild (Pain Scale 1-3), fever or headache Last Admin: 04/18/24 09:51 Dose: 650 mg Documented By: TAWANA Al Hydroxide/Mg Hydroxide (Magnesium Hydrox/Alum Hydrox 30 Ml Oral.Susp) 30 ml PO Q6H PRN PRN Reason: Constipation Benzonatate (Benzonatate 100 Mg Capsule) 100 mg PO TID PRN PRN Reason: Cough Calcium Carbonate (Calcium Carbonate 750 Mg Tab.Chew) 750 mg PO Q4H PRN PRN Reason: Heartburn Clonidine (Clonidine 0.1 Mg Patch.Tdwk) 0.1 mg TRANSDERMA Tu@0900 [facility]; Protocol Last Admin: 04/14/24 08:18 Dose: 0.1 mg Documented By: RADHA Enoxaparin Sodium (Enoxaparin Sodium 40 Mg/0.4 Ml Syringe) 40 mg SUBCUT Q24H [facility] Last Admin: 04/18/24 16:33 Dose: 40 mg Documented By: TAWANA Magnesium Hydroxide (Milk Of Magnesia 30 Ml Oral.Susp) 30 ml PO DAILY PRN PRN Reason: Constipation Melatonin (Melatonin 3 Mg Tablet) 6 mg PO BEDTIME PRN PRN Reason: Insomnia Last Admin: 04/18/24 20:31 Dose: 6 mg Documented By: AHMET Miconazole Nitrate (Miconazole Nitrate 2% Powder 85 Gm Bottle) 1 appl TOPICAL BID [facility]; Protocol Last Admin: 04/19/24 09:40 Dose: 1 appl Documented By: TAWANA Nicotine Polacrilex (Nicotine Polacrilex 2 Mg Gum) 4 mg BUCCAL Q2H PRN PRN Reason: Nicotine Cravings Ondansetron HCl (Ondansetron Hcl 4 Mg/2 Ml Vial) 4 mg IVPUSH Q8H PRN PRN Reason: Nausea and Vomiting Last Admin: 03/02/24 18:44 Dose: 4 mg Documented By: SEN Ondansetron HCl (Ondansetron Odt 4 Mg Tab.Rapdis) 4 mg TRANSLINGU Q6H PRN PRN Reason: Nausea and Vomiting Last Admin: 04/08/24 19:57 Dose: 4 mg Documented By: GERARDO-DILMA Polyethylene Glycol (Polyethylene Glycol 3350 17 Gm Powd.Pack) 17 gm PO DAILY [facility] Last Admin: 04/19/24 09:40 Dose: 17 gm Documented By: TAWANA Quetiapine Fumarate (Quetiapine Fumarate 25 Mg Tablet) 25 mg PO ONCE PRN PRN Reason: about 45 min before eeg Last Admin: 02/17/24 09:40 Dose: 25 mg Documented By: SLHOMO Risperidone (Risperidone Oral Peg 1 Mg/Ml Solution) 0.5 mg PO BID [facility] Last Admin: 04/19/24 09:40 Dose: 0.5 mg Documented By: TAWANA Trazodone HCl (Trazodone Hcl 25 Mg Halftab) 25 mg PO BEDTIME PRN PRN Reason: Insomnia Last Admin: 04/02/24 20:26 Dose: 25 mg Documented By: AHMET Labs 04/08/24 05:03 04/08/24 05:03 Assessment and Plan (1) Cognitive and behavioral changes: Status: Acute Assessment and Plan: 83M PMH htn, unspecified dementia, admitted to [facility] 02/13/24 for FTT, not taking meds or food, transfered to medicine 02/14/24. 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 CJD ruled out EEG showing general slowing but no seizure disorder BODY MECHANIC APPRENTICE appreciated, NDD3 solids, thin liquids bilateral conjunctivitis completed treatment Hypertension Transdermal clonidine Amlodipine Mood disorder hold Risperidone, trazodone for today DVT prophylaxis with Lovenox Full Code reason for continued hospitalization: Safe dispo The patient HCP is his step-daughter Alcides can be reached on [phone] Patient sister name is Dr. Nate Genao and her phone number is [phone] to be contacted for any updates. Quality Stroke Does the patient have a stroke diagnosis?: No VTE Prior VTE?: No VTE Risk Level:: Medical - moderate - high VTE Device Contraindication: Treatment Not Indicated VTE Drug Contraindication: N/A - Med Ordered
[2024-04-19 15:22] VITALS: BP 138/68; PULSE 71; RESP 16; TEMP 36.3; O2SAT 96
[2024-04-19] MEDS: Enoxaparin Sodium 40 MG/0.4 ML SYRINGE SUBCUT (15:41)
[2024-04-19 19:06] VITALS: BP 157/77; PULSE 74; RESP 18; TEMP 37; O2SAT 92
[2024-04-20 03:29] VITALS: BP 137/77; PULSE 62; RESP 16; TEMP 36.2; O2SAT 93
[2024-04-20 07:41] VITALS: BP 154/72; PULSE 71; RESP 16; TEMP 36.6; O2SAT 98
[2024-04-20] MEDS: Miconazole Nitrate 2% Powder 85 GM Bottle 1 APPL TOPICAL ×2 (08:40→20:28)
[2024-04-20] MEDS: polyethylene glycoL 3350 17 GM POWD.PACK PO (08:41)
[2024-04-20] MEDS: risperiDONE Oral Sol 1 MG/ML SOLUTION 0.5 MG PO ×2 (08:41→20:26)
[2024-04-20 11:26] VITALS: BP 132/82; PULSE 77; RESP 16; TEMP 36.4; O2SAT 97
--- NOTE | 2024-04-20 12:06 | P.PNIM_ITS ---
Subjective Subjective Date of Service: 04/20/24 Interval History: unspecified dementia Review of Systems po intake improving no new events Physical Exam 2 Vital Signs: Vital Signs: Last Vital Signs Temp 97.6 F 04/20/24 11:26 Pulse 77 04/20/24 11:26 Resp 16 04/20/24 11:26 BP 132/82 04/20/24 11:26 Pulse Ox 97 04/20/24 11:26 O2 Del Method Room Air 04/20/24 11:26 O2 Flow Rate 2 03/28/24 07:24 BMI result Body Mass Index 21.9 Constitutional : Awake, not in distress Eyes: Left eye conjunctivitis Neck : Normal inspection, Supple Cardiovascular : no JVP, no lower extremity edema Skin : Warm, Dry Neurological : Alert & disoriented to place and time, No focal deficit Objective Data Active Medications Acetaminophen (Acetaminophen 325 Mg Tablet) 650 mg PO Q6H PRN PRN Reason: Pain, Mild (Pain Scale 1-3), fever or headache Last Admin: 04/18/24 09:51 Dose: 650 mg Documented By: TAWANA Al Hydroxide/Mg Hydroxide (Magnesium Hydrox/Alum Hydrox 30 Ml Oral.Susp) 30 ml PO Q6H PRN PRN Reason: Constipation Benzonatate (Benzonatate 100 Mg Capsule) 100 mg PO TID PRN PRN Reason: Cough Calcium Carbonate (Calcium Carbonate 750 Mg Tab.Chew) 750 mg PO Q4H PRN PRN Reason: Heartburn Clonidine (Clonidine 0.1 Mg Patch.Tdwk) 0.1 mg TRANSDERMA Tu@0900 [facility]; Protocol Last Admin: 04/14/24 08:18 Dose: 0.1 mg Documented By: RADHA Enoxaparin Sodium (Enoxaparin Sodium 40 Mg/0.4 Ml Syringe) 40 mg SUBCUT Q24H [facility] Last Admin: 04/19/24 15:41 Dose: 40 mg Documented By: TAWANA Magnesium Hydroxide (Milk Of Magnesia 30 Ml Oral.Susp) 30 ml PO DAILY PRN PRN Reason: Constipation Melatonin (Melatonin 3 Mg Tablet) 6 mg PO BEDTIME PRN PRN Reason: Insomnia Last Admin: 04/18/24 20:31 Dose: 6 mg Documented By: AHMET Miconazole Nitrate (Miconazole Nitrate 2% Powder 85 Gm Bottle) 1 appl TOPICAL BID [facility]; Protocol Last Admin: 04/20/24 08:40 Dose: 1 appl Documented By: TYRELL Nicotine Polacrilex (Nicotine Polacrilex 2 Mg Gum) 4 mg BUCCAL Q2H PRN PRN Reason: Nicotine Cravings Ondansetron HCl (Ondansetron Hcl 4 Mg/2 Ml Vial) 4 mg IVPUSH Q8H PRN PRN Reason: Nausea and Vomiting Last Admin: 03/02/24 18:44 Dose: 4 mg Documented By: SEN Ondansetron HCl (Ondansetron Odt 4 Mg Tab.Rapdis) 4 mg TRANSLINGU Q6H PRN PRN Reason: Nausea and Vomiting Last Admin: 04/08/24 19:57 Dose: 4 mg Documented By: GERARDO-KAVYADRNeville Polyethylene Glycol (Polyethylene Glycol 3350 17 Gm Powd.Pack) 17 gm PO DAILY [facility] Last Admin: 04/20/24 08:41 Dose: 17 gm Documented By: TYRELL Quetiapine Fumarate (Quetiapine Fumarate 25 Mg Tablet) 25 mg PO ONCE PRN PRN Reason: about 45 min before eeg Last Admin: 02/17/24 09:40 Dose: 25 mg Documented By: SHLOMO Risperidone (Risperidone Oral Peg 1 Mg/Ml Solution) 0.5 mg PO BID [facility] Last Admin: 04/20/24 08:41 Dose: 0.5 mg Documented By: TYRELL Trazodone HCl (Trazodone Hcl 25 Mg Halftab) 25 mg PO BEDTIME PRN PRN Reason: Insomnia Last Admin: 04/02/24 20:26 Dose: 25 mg Documented By: AHMET Labs 04/08/24 05:03 04/08/24 05:03 Assessment and Plan (1) Cognitive and behavioral changes: Status: Acute Assessment and Plan: 83M PMH htn, unspecified dementia, admitted to [facility] 02/13/24 for FTT, not taking meds or food, transfered to medicine 02/14/24. 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 Nate Genao and her phone number is [phone] to be contacted for any updates. Quality Stroke Does the patient have a stroke diagnosis?: No VTE Prior VTE?: No VTE Risk Level:: Medical - moderate - high VTE Device Contraindication: Treatment Not Indicated VTE Drug Contraindication: N/A - Med Ordered
[2024-04-20 13:00] VITALS: BMI 20.6
--- NOTE | 2024-04-20 13:36 | MHC.CM.PN ---
EMR REVIEWED. CM CONTINUES TO AWAIT COURT PPW FROM [facility]. ONCE FINANCES ARE DETERMINED, MH YOEL/LTC TO BE SOUGHT.
--- NOTE | 2024-04-20 14:41 | MHC.CLN ---
F/U DIET=REGULAR, CHOPPED WITH FORTIFIED ICE CREAM TID. SUPPLEMENT PROVIDES 870 KCALS, 27 G PROTEIN. PO INTAKE CONTINUES TO BE VARIABLE, 0-50%. ODETTE=10. SKIN WITH REDNESS TO COCCYX. WILL REFUSE MEALS, MEDS, CARE AT TIMES. CONTINUE TO MONITOR PO INTAKE AND ENCOURAGE SUPPLEMENTS. RD TO CONTINUE TO FOLLOW WEEKLY.
[2024-04-20 16:00] VITALS: BP 142/76; PULSE 89; RESP 18; TEMP 37.1; O2SAT 94
[2024-04-20] MEDS: Enoxaparin Sodium 40 MG/0.4 ML SYRINGE SUBCUT (16:46)
[2024-04-20 19:11] VITALS: BP 159/83; PULSE 72; RESP 16; TEMP 36.6; O2SAT 94
[2024-04-21 03:46] VITALS: BP 133/68; PULSE 65; RESP 18; TEMP 36.6; O2SAT 95
[2024-04-21 07:14] VITALS: BP 144/87; PULSE 72; RESP 16; TEMP 36.6; O2SAT 94
[2024-04-21] MEDS: polyethylene glycoL 3350 17 GM POWD.PACK PO (09:08)
[2024-04-21] MEDS: cloNIDine 0.1 MG PATCH.TDWK TRANSDERMA (09:08)
[2024-04-21] MEDS: risperiDONE Oral Sol 1 MG/ML SOLUTION 0.5 MG PO ×2 (09:12→19:51)
[2024-04-21] MEDS: Miconazole Nitrate 2% Powder 85 GM Bottle 1 APPL TOPICAL ×2 (09:14→19:51)
--- NOTE | 2024-04-21 12:23 | P.PNIM_ITS ---
Subjective Subjective Date of Service: 04/21/24 Interval History: seen and evaluated this morning laying comfortable in his bed no other events Review of Systems Review of Systems: Yes all other systems are reviewed and are negative Physical Exam 2 Vital Signs: Vital Signs: Last Vital Signs Temp 97.8 F 04/21/24 07:14 Pulse 72 04/21/24 07:14 Resp 16 04/21/24 07:14 BP 144/87 H 04/21/24 07:14 Pulse Ox 94 04/21/24 07:14 O2 Del Method Room Air 04/21/24 07:14 O2 Flow Rate 2 03/28/24 07:24 BMI result Body Mass Index 20.6 Const: Other: Constitutional : Awake, not in distress Neck : Normal inspection, Supple Cardiovascular : no JVP, no lower extremity edema Skin : Warm, Dry Neurological : Alert & disoriented to place and time, No focal deficit Objective Data Active Medications Acetaminophen (Acetaminophen 325 Mg Tablet) 650 mg PO Q6H PRN PRN Reason: Pain, Mild (Pain Scale 1-3), fever or headache Last Admin: 04/18/24 09:51 Dose: 650 mg Documented By: TAWANA Al Hydroxide/Mg Hydroxide (Magnesium Hydrox/Alum Hydrox 30 Ml Oral.Susp) 30 ml PO Q6H PRN PRN Reason: Constipation Benzonatate (Benzonatate 100 Mg Capsule) 100 mg PO TID PRN PRN Reason: Cough Calcium Carbonate (Calcium Carbonate 750 Mg Tab.Chew) 750 mg PO Q4H PRN PRN Reason: Heartburn Clonidine (Clonidine 0.1 Mg Patch.Tdwk) 0.1 mg TRANSDERMA Tu@0900 [facility]; Protocol Last Admin: 04/21/24 09:08 Dose: 0.1 mg Documented By: TYRELL Enoxaparin Sodium (Enoxaparin Sodium 40 Mg/0.4 Ml Syringe) 40 mg SUBCUT Q24H [facility] Last Admin: 04/20/24 16:46 Dose: 40 mg Documented By: TYRELL Magnesium Hydroxide (Milk Of Magnesia 30 Ml Oral.Susp) 30 ml PO DAILY PRN PRN Reason: Constipation Melatonin (Melatonin 3 Mg Tablet) 6 mg PO BEDTIME PRN PRN Reason: Insomnia Last Admin: 04/18/24 20:31 Dose: 6 mg Documented By: AHMET Miconazole Nitrate (Miconazole Nitrate 2% Powder 85 Gm Bottle) 1 appl TOPICAL BID [facility]; Protocol Last Admin: 04/21/24 09:14 Dose: 1 appl Documented By: TYRELL Nicotine Polacrilex (Nicotine Polacrilex 2 Mg Gum) 4 mg BUCCAL Q2H PRN PRN Reason: Nicotine Cravings Ondansetron HCl (Ondansetron Hcl 4 Mg/2 Ml Vial) 4 mg IVPUSH Q8H PRN PRN Reason: Nausea and Vomiting Last Admin: 03/02/24 18:44 Dose: 4 mg Documented By: SNE Ondansetron HCl (Ondansetron Odt 4 Mg Tab.Rapdis) 4 mg TRANSLINGU Q6H PRN PRN Reason: Nausea and Vomiting Last Admin: 04/08/24 19:57 Dose: 4 mg Documented By: JENSEN Polyethylene Glycol (Polyethylene Glycol 3350 17 Gm Powd.Pack) 17 gm PO DAILY [facility] Last Admin: 04/21/24 09:08 Dose: 17 gm Documented By: TYRELL Quetiapine Fumarate (Quetiapine Fumarate 25 Mg Tablet) 25 mg PO ONCE PRN PRN Reason: about 45 min before eeg Last Admin: 02/17/24 09:40 Dose: 25 mg Documented By: SHLOMO Risperidone (Risperidone Oral Peg 1 Mg/Ml Solution) 0.5 mg PO BID [facility] Last Admin: 04/21/24 09:12 Dose: 0.5 mg Documented By: TYRELL Trazodone HCl (Trazodone Hcl 25 Mg Halftab) 25 mg PO BEDTIME PRN PRN Reason: Insomnia Last Admin: 04/02/24 20:26 Dose: 25 mg Documented By: AHMET Labs 04/08/24 05:03 04/08/24 05:03 Assessment and Plan (1) Cognitive and behavioral changes: Status: Acute Plan 83M PMH htn, unspecified dementia, admitted to [facility] 02/13/24 for FTT, not taking meds or food, transfered to medicine 02/14/24. 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 Nate Genao and her phone number is [phone] to be contacted for any updates. Quality Stroke Does the patient have a stroke diagnosis?: No VTE Prior VTE?: No VTE Risk Level:: Medical - moderate - high VTE Device Contraindication: Treatment Not Indicated VTE Drug Contraindication: N/A - Med Ordered
[2024-04-21 15:13] VITALS: BP 128/68; PULSE 70; RESP 16; TEMP 36.3; O2SAT 96
[2024-04-21] MEDS: Enoxaparin Sodium 40 MG/0.4 ML SYRINGE SUBCUT (16:19)
[2024-04-21] MEDS: Loperamide HCl 2 MG CAPSULE PO ×2 (17:08→21:07)
[2024-04-21 19:54] VITALS: BP 140/78; PULSE 100; RESP 18; TEMP 36.4; O2SAT 96
[2024-04-21 20:07] LABS: Leukocytes Stool Qualitative NEGATIVE (NEGATIVE)
[2024-04-22 04:00] VITALS: BP 130/63; PULSE 74; RESP 16; TEMP 36; O2SAT 97
[2024-04-22 07:19] VITALS: BP 134/62; PULSE 67; RESP 18; TEMP 36.2; O2SAT 95
[2024-04-22] MEDS: risperiDONE Oral Sol 1 MG/ML SOLUTION 0.5 MG PO ×2 (09:33→19:58)
[2024-04-22] MEDS: Miconazole Nitrate 2% Powder 85 GM Bottle 1 APPL TOPICAL ×2 (09:34→20:03)
[2024-04-22 10:04] LABS: Adenovirus F 40/41 Not Detected (Not Detect.); Astrovirus Not Detected (Not Detect.); Campylobacter Not Detected (Not Detect.); Cryptosporidium Not Detected (Not Detect.); Cyclospora cayetanensis Not Detected (Not Detect.); E. coli EAEC Not Detected (Not Detect.); E. coli EPEC Not Detected (Not Detect.); E. coli ETEC Not Detected (Not Detect.); E. coli STEC Not Detected (Not Detect.); Entamoeba histolytica Not Detected (Not Detect.); Giardia lamblia Not Detected (Not Detect.); Norovirus GI/GII Not Detected (Not Detect.); Plesiomonas shigelloides Not Detected (Not Detect.); Rotavirus A Not Detected (Not Detect.); Salmonella Not Detected (Not Detect.); Sapovirus Not Detected (Not Detect.); Shigella sp./EIEC Not Detected (Not Detect.); Vibrio Not Detected (Not Detect.); Vibrio Cholerae Not Detected (Not Detect.); Yersinia enterocolitica Not Detected (Not Detect.)
--- NOTE | 2024-04-22 10:55 | HO.PM.IMPN ---
Subjective Subjective Date of Service: 04/22/24 Interval History: seen and evaluated this morning laying comfortable in his bed no other events Review of Systems Review of Systems: Yes all other systems are reviewed and are negative Physical Exam Vital Signs: Vital Signs: Last Vital Signs Temp 97.2 F 04/22/24 07:19 Pulse 67 04/22/24 07:19 Resp 18 04/22/24 07:19 BP 134/62 04/22/24 07:19 Pulse Ox 95 04/22/24 07:19 O2 Del Method Room Air 04/22/24 07:19 O2 Flow Rate 2 03/28/24 07:24 BMI result Body Mass Index 20.6 Const: Other: Constitutional : Awake, not in distress Neck : Normal inspection, Supple Cardiovascular : no JVP, no lower extremity edema Skin : Warm, Dry Neurological : Alert & disoriented to place and time, No focal deficit Objective Data Active Medications Acetaminophen (Acetaminophen 325 Mg Tablet) 650 mg PO Q6H PRN PRN Reason: Pain, Mild (Pain Scale 1-3), fever or headache Last Admin: 04/18/24 09:51 Dose: 650 mg Documented By: TAWANA Al Hydroxide/Mg Hydroxide (Magnesium Hydrox/Alum Hydrox 30 Ml Oral.Susp) 30 ml PO Q6H PRN PRN Reason: Constipation Benzonatate (Benzonatate 100 Mg Capsule) 100 mg PO TID PRN PRN Reason: Cough Calcium Carbonate (Calcium Carbonate 750 Mg Tab.Chew) 750 mg PO Q4H PRN PRN Reason: Heartburn Clonidine (Clonidine 0.1 Mg Patch.Tdwk) 0.1 mg TRANSDERMA Tu@0900 [facility]; Protocol Last Admin: 04/21/24 09:08 Dose: 0.1 mg Documented By: TYRELL Enoxaparin Sodium (Enoxaparin Sodium 40 Mg/0.4 Ml Syringe) 40 mg SUBCUT Q24H [facility] Last Admin: 04/21/24 16:19 Dose: 40 mg Documented By: TYRELL Loperamide HCl (Loperamide Hcl 2 Mg Capsule) 2 mg PO Q4H PRN PRN Reason: Diarrhea Last Admin: 04/21/24 21:07 Dose: 2 mg Documented By: MARILEE Magnesium Hydroxide (Milk Of Magnesia 30 Ml Oral.Susp) 30 ml PO DAILY PRN PRN Reason: Constipation Melatonin (Melatonin 3 Mg Tablet) 6 mg PO BEDTIME PRN PRN Reason: Insomnia Last Admin: 04/18/24 20:31 Dose: 6 mg Documented By: AHMET Miconazole Nitrate (Miconazole Nitrate 2% Powder 85 Gm Bottle) 1 appl TOPICAL BID [facility]; Protocol Last Admin: 04/22/24 09:34 Dose: 1 appl Documented By: JORGE Nicotine Polacrilex (Nicotine Polacrilex 2 Mg Gum) 4 mg BUCCAL Q2H PRN PRN Reason: Nicotine Cravings Ondansetron HCl (Ondansetron Hcl 4 Mg/2 Ml Vial) 4 mg IVPUSH Q8H PRN PRN Reason: Nausea and Vomiting Last Admin: 03/02/24 18:44 Dose: 4 mg Documented By: SEN Ondansetron HCl (Ondansetron Odt 4 Mg Tab.Rapdis) 4 mg TRANSLINGU Q6H PRN PRN Reason: Nausea and Vomiting Last Admin: 04/08/24 19:57 Dose: 4 mg Documented By: JENSEN Quetiapine Fumarate (Quetiapine Fumarate 25 Mg Tablet) 25 mg PO ONCE PRN PRN Reason: about 45 min before eeg Last Admin: 02/17/24 09:40 Dose: 25 mg Documented By: SHLOMO Risperidone (Risperidone Oral Peg 1 Mg/Ml Solution) 0.5 mg PO BID [facility] Last Admin: 04/22/24 09:33 Dose: 0.5 mg Documented By: JORGE Trazodone HCl (Trazodone Hcl 25 Mg Halftab) 25 mg PO BEDTIME PRN PRN Reason: Insomnia Last Admin: 04/02/24 20:26 Dose: 25 mg Documented By: AHMET Labs 04/08/24 05:03 04/08/24 05:03 Labs: Laboratory Results - last 24 hr 04/21/24 04/21/24 17:09 Unknown Stool Leukocytes, Qual NEGATIVE Stl C. cayetanensis PCR Not Detected Stool Rotavirus A PCR Not Detected Stl Adenov F 40/41 PCR Not Detected Stool Astrovirus (PCR) Not Detected Stool Campylobacter PCR Not Detected Stool Cryptosporidium PCR Not Detected Stl Sh Tox Pr E STEC PCR Not Detected Stool E coli O157 PCR Not applicable Stl Enterotoxigenic E PCR Not Detected Stool EPEC (PCR) Not Detected Stool EAEC (PCR) Not Detected Stl E. histolytica PCR Not Detected Stool Giardia Lamblia PCR Not Detected Stl P. shigelloides PCR Not Detected Stool Salmonella PCR Not Detected Stool Sapovirus (PCR) Not Detected Stl Shigella/EIEC PCR Not Detected St Y.enterocolitica PCR Not Detected Stool Vibrio (PCR) Not Detected Stl Vibrio cholerae PCR Not Detected Stl Norovirus GI/GII PCR Not Detected Assessment and Plan (1) Cognitive and behavioral changes: Status: Acute Plan 83M PMH htn, unspecified dementia, admitted to [facility] 02/13/24 for FTT, not taking meds or food, transfered to medicine 02/14/24. 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 Nate Genao and her phone number is [phone] to be contacted for any updates. Quality Stroke Does the patient have a stroke diagnosis?: No VTE Prior VTE?: No VTE Risk Level:: Medical - moderate - high VTE Device Contraindication: Treatment Not Indicated VTE Drug Contraindication: N/A - Med Ordered
[2024-04-22 12:48] LABS: CDiff Gene PCR NEGATIVE (Negative)
[2024-04-22] MEDS: Enoxaparin Sodium 40 MG/0.4 ML SYRINGE SUBCUT (15:35)
[2024-04-22 19:05] VITALS: BP 132/59; PULSE 73; RESP 14; TEMP 36.6; O2SAT 91
[2024-04-23 06:17] LABS: Hematocrit 45.5 % (42.0-52.0); Hemoglobin 15.7 g/dl (14.0-18.0); Mean Corpuscular HGB Conc 34.5 g/dl (31.0-36.0); Mean Corpuscular Hemoglobin 31.2 pg (27.0-33.0); Mean Corpuscular Volume 90.5 fL (80.0-98.0); Mean Platelet Volume 10.2 fL (9.4-12.4); Platelet Count 204 X10*3/uL (160-400); Red Blood Count 5.03 X10*6/uL (4.60-5.80); Red Cell Distribution Width 13.4 % (11.0-16.0)
[2024-04-23 06:34] LABS: Alanine Aminotransferase 53 U/L (0-40); Albumin Level 3.5 g/dL (3.5-5.0); Alkaline Phosphatase 115 U/L (39-117); Anion Gap 16 (12-20); Aspartate Amino Transferase 41 U/L (5-37); Bilirubin Direct 0.5 mg/dL (0.0-0.5); Blood Urea Nitrogen 20 mg/dL (9-16); Calcium 9.3 mg/dL (8.4-10.2); Carbon Dioxide 20 mmol/L (22-29); Chloride 113 mmol/L (96-108); Creatinine Clr Calc Pharmacy 68.9; Estimated Glomerular Filt Rate > 60; Glucose Random 108 mg/dL (60-115); Magnesium 2.2 mg/dL (1.6-2.6); Potassium 3.8 mmol/L (3.3-5.1); Sodium 145 mmol/L (135-145); Total Protein 6.2 g/dL (6.5-8.0)
[2024-04-23 07:15] VITALS: BP 134/79; PULSE 69; RESP 12; TEMP 36.4; O2SAT 94
--- NOTE | 2024-04-23 08:23 | HO.PM.IMPN ---
Subjective Subjective Date of Service: 04/23/24 Interval History: seen and evaluated this morning laying comfortable in his bed no other events Review of Systems Review of Systems: Yes all other systems are reviewed and are negative Physical Exam Vital Signs: Vital Signs: Last Vital Signs Temp 97.5 F 04/23/24 07:15 Pulse 69 04/23/24 07:15 Resp 12 04/23/24 07:15 BP 134/79 04/23/24 07:15 Pulse Ox 94 04/23/24 07:15 O2 Del Method Room Air 04/23/24 07:15 O2 Flow Rate 2 03/28/24 07:24 BMI result Body Mass Index 20.6 Const: Other: Constitutional : Awake, not in distress Neck : Normal inspection, Supple Cardiovascular : no JVP, no lower extremity edema Skin : Warm, Dry Neurological : Alert & disoriented to place and time, No focal deficit Objective Data Active Medications Acetaminophen (Acetaminophen 325 Mg Tablet) 650 mg PO Q6H PRN PRN Reason: Pain, Mild (Pain Scale 1-3), fever or headache Last Admin: 04/18/24 09:51 Dose: 650 mg Documented By: TAWANA Al Hydroxide/Mg Hydroxide (Magnesium Hydrox/Alum Hydrox 30 Ml Oral.Susp) 30 ml PO Q6H PRN PRN Reason: Constipation Benzonatate (Benzonatate 100 Mg Capsule) 100 mg PO TID PRN PRN Reason: Cough Calcium Carbonate (Calcium Carbonate 750 Mg Tab.Chew) 750 mg PO Q4H PRN PRN Reason: Heartburn Clonidine (Clonidine 0.1 Mg Patch.Tdwk) 0.1 mg TRANSDERMA Tu@0900 [facility]; Protocol Last Admin: 04/21/24 09:08 Dose: 0.1 mg Documented By: TYRELL Enoxaparin Sodium (Enoxaparin Sodium 40 Mg/0.4 Ml Syringe) 40 mg SUBCUT Q24H [facility] Last Admin: 04/22/24 15:35 Dose: 40 mg Documented By: ADAMARIS Loperamide HCl (Loperamide Hcl 2 Mg Capsule) 2 mg PO Q4H PRN PRN Reason: Diarrhea Last Admin: 04/21/24 21:07 Dose: 2 mg Documented By: MARILEE Magnesium Hydroxide (Milk Of Magnesia 30 Ml Oral.Susp) 30 ml PO DAILY PRN PRN Reason: Constipation Melatonin (Melatonin 3 Mg Tablet) 6 mg PO BEDTIME PRN PRN Reason: Insomnia Last Admin: 04/18/24 20:31 Dose: 6 mg Documented By: AHMET Miconazole Nitrate (Miconazole Nitrate 2% Powder 85 Gm Bottle) 1 appl TOPICAL BID [facility]; Protocol Last Admin: 04/22/24 20:03 Dose: 1 appl Documented By: ADAMARIS Nicotine Polacrilex (Nicotine Polacrilex 2 Mg Gum) 4 mg BUCCAL Q2H PRN PRN Reason: Nicotine Cravings Ondansetron HCl (Ondansetron Hcl 4 Mg/2 Ml Vial) 4 mg IVPUSH Q8H PRN PRN Reason: Nausea and Vomiting Last Admin: 03/02/24 18:44 Dose: 4 mg Documented By: SEN Ondansetron HCl (Ondansetron Odt 4 Mg Tab.Rapdis) 4 mg TRANSLINGU Q6H PRN PRN Reason: Nausea and Vomiting Last Admin: 04/08/24 19:57 Dose: 4 mg Documented By: JENSEN Quetiapine Fumarate (Quetiapine Fumarate 25 Mg Tablet) 25 mg PO ONCE PRN PRN Reason: about 45 min before eeg Last Admin: 02/17/24 09:40 Dose: 25 mg Documented By: SHLOMO Risperidone (Risperidone Oral Peg 1 Mg/Ml Solution) 0.5 mg PO BID [facility] Last Admin: 04/22/24 19:58 Dose: 0.5 mg Documented By: ADAMARIS Trazodone HCl (Trazodone Hcl 25 Mg Halftab) 25 mg PO BEDTIME PRN PRN Reason: Insomnia Last Admin: 04/02/24 20:26 Dose: 25 mg Documented By: AHMET Labs 04/23/24 05:41 04/23/24 05:42 Labs: Laboratory Results - last 24 hr 04/21/24 04/21/24 04/23/24 17:10 Unknown 05:41 MCV 90.5 MCH 31.2 MCHC 34.5 RDW 13.4 Plt Count 204 D MPV 10.2 Absolute Nucleated RBC 0.000 Nucleated RBC % (auto) 0.0 Anion Gap Estim Creat Clear Calc Estimated GFR Random Glucose Calcium Magnesium Total Bilirubin Direct Bilirubin AST ALT Alkaline Phosphatase Total Protein Albumin Stl C. cayetanensis PCR Not Detected Stool Rotavirus A PCR Not Detected Stl Adenov F 40/41 PCR Not Detected Stool Astrovirus (PCR) Not Detected Stool Campylobacter PCR Not Detected Stool Cryptosporidium PCR Not Detected Stl Sh Tox Pr E STEC PCR Not Detected Stool E coli O157 PCR Not applicable Stl Enterotoxigenic E PCR Not Detected Stool EPEC (PCR) Not Detected Stool EAEC (PCR) Not Detected Stl E. histolytica PCR Not Detected Stool Giardia Lamblia PCR Not Detected Stl P. shigelloides PCR Not Detected Stool Salmonella PCR Not Detected Stool Sapovirus (PCR) Not Detected Stl Shigella/EIEC PCR Not Detected St Y.enterocolitica PCR Not Detected Stool Vibrio (PCR) Not Detected Stl Vibrio cholerae PCR Not Detected Stl Norovirus GI/GII PCR Not Detected C. difficile Tox B Gene NEGATIVE 04/23/24 05:42 MCV MCH MCHC RDW Plt Count MPV Absolute Nucleated RBC Nucleated RBC % (auto) Anion Gap 16 Estim Creat Clear Calc 68.9 Estimated GFR > 60 Random Glucose 108 Calcium 9.3 Magnesium 2.2 Total Bilirubin 1.0 Direct Bilirubin 0.5 AST 41 H ALT 53 H Alkaline Phosphatase 115 Total Protein 6.2 L Albumin 3.5 Stl C. cayetanensis PCR Stool Rotavirus A PCR Stl Adenov F 40/41 PCR Stool Astrovirus (PCR) Stool Campylobacter PCR Stool Cryptosporidium PCR Stl Sh Tox Pr E STEC PCR Stool E coli O157 PCR Stl Enterotoxigenic E PCR Stool EPEC (PCR) Stool EAEC (PCR) Stl E. histolytica PCR Stool Giardia Lamblia PCR Stl P. shigelloides PCR Stool Salmonella PCR Stool Sapovirus (PCR) Stl Shigella/EIEC PCR St Y.enterocolitica PCR Stool Vibrio (PCR) Stl Vibrio cholerae PCR Stl Norovirus GI/GII PCR C. difficile Tox B Gene Assessment and Plan (1) Cognitive and behavioral changes: Status: Acute Plan 83M PMH htn, unspecified dementia, admitted to [facility] 02/13/24 for FTT, not taking meds or food, transfered to medicine 02/14/24. 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 EEG showing general slowing but no seizure disorder HEAD UP OPERATOR appreciated, NDD3 solids, thin liquids bilateral conjunctivitis completed treatment Hypertension Transdermal clonidine Amlodipine Mood disorder Risperidone, trazodone DVT prophylaxis with Lovenox Full Code reason for continued hospitalization: Safe dispo The patient HCP is his step-daughter Alcides can be reached on [phone] Patient sister name is Dr. Nate Genao and her phone number is [phone] to be contacted for any updates. Quality Stroke Does the patient have a stroke diagnosis?: No VTE Prior VTE?: No VTE Risk Level:: Medical - moderate - high VTE Device Contraindication: Treatment Not Indicated VTE Drug Contraindication: N/A - Med Ordered
[2024-04-23] MEDS: risperiDONE Oral Sol 1 MG/ML SOLUTION 0.5 MG PO ×2 (09:08→20:39)
[2024-04-23] MEDS: Miconazole Nitrate 2% Powder 85 GM Bottle 1 APPL TOPICAL ×2 (09:09→20:39)
[2024-04-23] MEDS: Enoxaparin Sodium 40 MG/0.4 ML SYRINGE SUBCUT (15:04)
[2024-04-23 16:00] VITALS: BP 130/80; PULSE 75; RESP 20; TEMP 36.3; O2SAT 93
--- NOTE | 2024-04-23 17:25 | PC.NURSE ---
Pt has poor oral intake, refusing meals, consuming only minimal amounts of liquids today. Appears tired but alert. MD notified.
[2024-04-23 19:55] VITALS: BP 148/70; PULSE 88; RESP 16; TEMP 36.1; O2SAT 96
[2024-04-24 03:31] VITALS: BP 166/80; PULSE 68; RESP 18; TEMP 36.2; O2SAT 97
[2024-04-24 07:45] VITALS: BP 135/89; PULSE 72; RESP 12; TEMP 37; O2SAT 96
[2024-04-24] MEDS: risperiDONE Oral Sol 1 MG/ML SOLUTION 0.5 MG PO ×2 (08:49→20:31)
[2024-04-24] MEDS: Miconazole Nitrate 2% Powder 85 GM Bottle 1 APPL TOPICAL ×2 (08:49→20:34)
--- NOTE | 2024-04-24 09:48 | HO.PM.IMPN ---
Subjective Subjective Date of Service: 04/24/24 Interval History: seen and evaluated this morning laying comfortable in his bed no other events Review of Systems Review of Systems: Yes all other systems are reviewed and are negative Physical Exam Vital Signs: Vital Signs: Last Vital Signs Temp 98.6 F 04/24/24 07:45 Pulse 72 04/24/24 07:45 Resp 12 04/24/24 07:45 BP 135/89 04/24/24 07:45 Pulse Ox 96 04/24/24 07:45 O2 Del Method Room Air 04/24/24 07:45 O2 Flow Rate 2 03/28/24 07:24 BMI result Body Mass Index 20.6 Const: Other: Constitutional : Awake, not in distress Neck : Normal inspection, Supple Cardiovascular : no JVP, no lower extremity edema Skin : Warm, Dry Neurological : Alert & disoriented to place and time, No focal deficit Objective Data Active Medications Acetaminophen (Acetaminophen 325 Mg Tablet) 650 mg PO Q6H PRN PRN Reason: Pain, Mild (Pain Scale 1-3), fever or headache Last Admin: 04/18/24 09:51 Dose: 650 mg Documented By: TAWANA Al Hydroxide/Mg Hydroxide (Magnesium Hydrox/Alum Hydrox 30 Ml Oral.Susp) 30 ml PO Q6H PRN PRN Reason: Constipation Benzonatate (Benzonatate 100 Mg Capsule) 100 mg PO TID PRN PRN Reason: Cough Calcium Carbonate (Calcium Carbonate 750 Mg Tab.Chew) 750 mg PO Q4H PRN PRN Reason: Heartburn Clonidine (Clonidine 0.1 Mg Patch.Tdwk) 0.1 mg TRANSDERMA Tu@0900 [facility]; Protocol Last Admin: 04/21/24 09:08 Dose: 0.1 mg Documented By: TYRELL Enoxaparin Sodium (Enoxaparin Sodium 40 Mg/0.4 Ml Syringe) 40 mg SUBCUT Q24H [facility] Last Admin: 04/23/24 15:04 Dose: 40 mg Documented By: SOLANGE Loperamide HCl (Loperamide Hcl 2 Mg Capsule) 2 mg PO Q4H PRN PRN Reason: Diarrhea Last Admin: 04/21/24 21:07 Dose: 2 mg Documented By: MARILEE Magnesium Hydroxide (Milk Of Magnesia 30 Ml Oral.Susp) 30 ml PO DAILY PRN PRN Reason: Constipation Melatonin (Melatonin 3 Mg Tablet) 6 mg PO BEDTIME PRN PRN Reason: Insomnia Last Admin: 04/18/24 20:31 Dose: 6 mg Documented By: AHMET Miconazole Nitrate (Miconazole Nitrate 2% Powder 85 Gm Bottle) 1 appl TOPICAL BID [facility]; Protocol Last Admin: 04/24/24 08:49 Dose: 1 appl Documented By: SOLANGE Nicotine Polacrilex (Nicotine Polacrilex 2 Mg Gum) 4 mg BUCCAL Q2H PRN PRN Reason: Nicotine Cravings Ondansetron HCl (Ondansetron Hcl 4 Mg/2 Ml Vial) 4 mg IVPUSH Q8H PRN PRN Reason: Nausea and Vomiting Last Admin: 03/02/24 18:44 Dose: 4 mg Documented By: SEN Ondansetron HCl (Ondansetron Odt 4 Mg Tab.Rapdis) 4 mg TRANSLINGU Q6H PRN PRN Reason: Nausea and Vomiting Last Admin: 04/08/24 19:57 Dose: 4 mg Documented By: JENSEN Quetiapine Fumarate (Quetiapine Fumarate 25 Mg Tablet) 25 mg PO ONCE PRN PRN Reason: about 45 min before eeg Last Admin: 02/17/24 09:40 Dose: 25 mg Documented By: SHLOMO Risperidone (Risperidone Oral Peg 1 Mg/Ml Solution) 0.5 mg PO BID [facility] Last Admin: 04/24/24 08:49 Dose: 0.5 mg Documented By: SOLANGE Trazodone HCl (Trazodone Hcl 25 Mg Halftab) 25 mg PO BEDTIME PRN PRN Reason: Insomnia Last Admin: 04/02/24 20:26 Dose: 25 mg Documented By: AHMET Labs 04/23/24 05:41 04/23/24 05:42 Assessment and Plan (1) Cognitive and behavioral changes: Status: Acute Plan 83M PMH htn, unspecified dementia, admitted to [facility] 02/13/24 for FTT, not taking meds or food, transfered to medicine 02/14/24. 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 Nate Genao and her phone number is [phone] to be contacted for any updates. Quality Stroke Does the patient have a stroke diagnosis?: No VTE Prior VTE?: No VTE Risk Level:: Medical - moderate - high VTE Device Contraindication: Treatment Not Indicated VTE Drug Contraindication: N/A - Med Ordered
[2024-04-24] MEDS: Enoxaparin Sodium 40 MG/0.4 ML SYRINGE SUBCUT (15:58)
[2024-04-24 16:01] VITALS: BP 185/97; PULSE 99; RESP 18; TEMP 36.1; O2SAT 96
[2024-04-24 17:15] VITALS: BP 186/88; PULSE 85
[2024-04-25 03:37] VITALS: BP 155/52; PULSE 63; RESP 16; TEMP 36.3; O2SAT 96
[2024-04-25 07:36] VITALS: BP 146/76; PULSE 64; RESP 16; TEMP 36.1; O2SAT 97
[2024-04-25] MEDS: risperiDONE Oral Sol 1 MG/ML SOLUTION 0.5 MG PO ×2 (08:37→20:50)
[2024-04-25] MEDS: Miconazole Nitrate 2% Powder 85 GM Bottle 1 APPL TOPICAL ×2 (08:38→20:52)
--- NOTE | 2024-04-25 09:21 | P.PNIM_ITS ---
Subjective Subjective Date of Service: 04/25/24 Interval History: seen and evaluated this morning laying comfortable in his bed no other events Review of Systems Review of Systems: Yes all other systems are reviewed and are negative Physical Exam 2 Vital Signs: Vital Signs: Last Vital Signs Temp 97.0 F 04/25/24 07:36 Pulse 64 04/25/24 07:36 Resp 16 04/25/24 07:36 BP 146/76 H 04/25/24 07:36 Pulse Ox 97 04/25/24 07:36 O2 Del Method Room Air 04/25/24 07:36 O2 Flow Rate 2 03/28/24 07:24 BMI result Body Mass Index 20.6 Const: Other: Constitutional : Awake, not in distress Neck : Normal inspection, Supple Cardiovascular : no JVP, no lower extremity edema Skin : Warm, Dry Neurological : Alert & disoriented to place and time, No focal deficit Objective Data Active Medications Acetaminophen (Acetaminophen 325 Mg Tablet) 650 mg PO Q6H PRN PRN Reason: Pain, Mild (Pain Scale 1-3), fever or headache Last Admin: 04/18/24 09:51 Dose: 650 mg Documented By: TAWANA Al Hydroxide/Mg Hydroxide (Magnesium Hydrox/Alum Hydrox 30 Ml Oral.Susp) 30 ml PO Q6H PRN PRN Reason: Constipation Benzonatate (Benzonatate 100 Mg Capsule) 100 mg PO TID PRN PRN Reason: Cough Calcium Carbonate (Calcium Carbonate 750 Mg Tab.Chew) 750 mg PO Q4H PRN PRN Reason: Heartburn Clonidine (Clonidine 0.1 Mg Patch.Tdwk) 0.1 mg TRANSDERMA Tu@0900 [facility]; Protocol Last Admin: 04/21/24 09:08 Dose: 0.1 mg Documented By: TYRELL Enoxaparin Sodium (Enoxaparin Sodium 40 Mg/0.4 Ml Syringe) 40 mg SUBCUT Q24H [facility] Last Admin: 04/24/24 15:58 Dose: 40 mg Documented By: SOLANGE Loperamide HCl (Loperamide Hcl 2 Mg Capsule) 2 mg PO Q4H PRN PRN Reason: Diarrhea Last Admin: 04/21/24 21:07 Dose: 2 mg Documented By: MARILEE Magnesium Hydroxide (Milk Of Magnesia 30 Ml Oral.Susp) 30 ml PO DAILY PRN PRN Reason: Constipation Melatonin (Melatonin 3 Mg Tablet) 6 mg PO BEDTIME PRN PRN Reason: Insomnia Last Admin: 04/18/24 20:31 Dose: 6 mg Documented By: AHMET Miconazole Nitrate (Miconazole Nitrate 2% Powder 85 Gm Bottle) 1 appl TOPICAL BID [facility]; Protocol Last Admin: 04/25/24 08:38 Dose: 1 appl Documented By: TYRELL Nicotine Polacrilex (Nicotine Polacrilex 2 Mg Gum) 4 mg BUCCAL Q2H PRN PRN Reason: Nicotine Cravings Ondansetron HCl (Ondansetron Hcl 4 Mg/2 Ml Vial) 4 mg IVPUSH Q8H PRN PRN Reason: Nausea and Vomiting Last Admin: 03/02/24 18:44 Dose: 4 mg Documented By: SEN Ondansetron HCl (Ondansetron Odt 4 Mg Tab.Rapdis) 4 mg TRANSLINGU Q6H PRN PRN Reason: Nausea and Vomiting Last Admin: 04/08/24 19:57 Dose: 4 mg Documented By: JENSNE Quetiapine Fumarate (Quetiapine Fumarate 25 Mg Tablet) 25 mg PO ONCE PRN PRN Reason: about 45 min before eeg Last Admin: 02/17/24 09:40 Dose: 25 mg Documented By: SHLOMO Risperidone (Risperidone Oral Peg 1 Mg/Ml Solution) 0.5 mg PO BID [facility] Last Admin: 04/25/24 08:37 Dose: 0.5 mg Documented By: TYRELL Trazodone HCl (Trazodone Hcl 25 Mg Halftab) 25 mg PO BEDTIME PRN PRN Reason: Insomnia Last Admin: 04/02/24 20:26 Dose: 25 mg Documented By: AHMET Labs 04/23/24 05:41 04/23/24 05:42 Assessment and Plan (1) Cognitive and behavioral changes: Status: Acute Plan 83M PMH htn, unspecified dementia, admitted to [facility] 02/13/24 for FTT, not taking meds or food, transfered to medicine 02/14/24. 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 Nate Genao and her phone number is [phone] to be contacted for any updates. Quality Stroke Does the patient have a stroke diagnosis?: No VTE Prior VTE?: No VTE Risk Level:: Medical - moderate - high VTE Device Contraindication: Treatment Not Indicated VTE Drug Contraindication: N/A - Med Ordered
[2024-04-25 15:23] VITALS: BP 145/74; PULSE 73; RESP 18; TEMP 36.5; O2SAT 96
[2024-04-25] MEDS: Enoxaparin Sodium 40 MG/0.4 ML SYRINGE SUBCUT (16:13)
[2024-04-25 19:32] VITALS: BP 159/85; PULSE 86; RESP 18; TEMP 36.5; O2SAT 96
[2024-04-26 03:16] VITALS: BP 140/70; PULSE 75; RESP 16; TEMP 36.7; O2SAT 94
[2024-04-26 07:58] VITALS: BP 134/66; PULSE 64; RESP 14; TEMP 36.9; O2SAT 97
--- NOTE | 2024-04-26 08:14 | HO.PM.IMPN ---
Subjective Subjective Date of Service: 04/26/24 Interval History: seen and evaluated this morning laying comfortable in his bed no other events Review of Systems Review of Systems: Yes all other systems are reviewed and are negative Physical Exam Vital Signs: Vital Signs: Last Vital Signs Temp 98.4 F 04/26/24 07:58 Pulse 64 04/26/24 07:58 Resp 14 04/26/24 07:58 BP 134/66 04/26/24 07:58 Pulse Ox 97 04/26/24 07:58 O2 Del Method Room Air 04/26/24 07:58 O2 Flow Rate 2 03/28/24 07:24 BMI result Body Mass Index 20.6 Const: Other: Constitutional : Awake, not in distress Neck : Normal inspection, Supple Cardiovascular : no JVP, no lower extremity edema Skin : Warm, Dry Neurological : Alert & disoriented to place and time, No focal deficit Objective Data Active Medications Acetaminophen (Acetaminophen 325 Mg Tablet) 650 mg PO Q6H PRN PRN Reason: Pain, Mild (Pain Scale 1-3), fever or headache Last Admin: 04/18/24 09:51 Dose: 650 mg Documented By: TAWANA Al Hydroxide/Mg Hydroxide (Magnesium Hydrox/Alum Hydrox 30 Ml Oral.Susp) 30 ml PO Q6H PRN PRN Reason: Constipation Benzonatate (Benzonatate 100 Mg Capsule) 100 mg PO TID PRN PRN Reason: Cough Calcium Carbonate (Calcium Carbonate 750 Mg Tab.Chew) 750 mg PO Q4H PRN PRN Reason: Heartburn Clonidine (Clonidine 0.1 Mg Patch.Tdwk) 0.1 mg TRANSDERMA Tu@0900 [facility]; Protocol Last Admin: 04/21/24 09:08 Dose: 0.1 mg Documented By: TYRELL Enoxaparin Sodium (Enoxaparin Sodium 40 Mg/0.4 Ml Syringe) 40 mg SUBCUT Q24H [facility] Last Admin: 04/25/24 16:13 Dose: 40 mg Documented By: TYRELL Loperamide HCl (Loperamide Hcl 2 Mg Capsule) 2 mg PO Q4H PRN PRN Reason: Diarrhea Last Admin: 04/21/24 21:07 Dose: 2 mg Documented By: MARILEE Magnesium Hydroxide (Milk Of Magnesia 30 Ml Oral.Susp) 30 ml PO DAILY PRN PRN Reason: Constipation Melatonin (Melatonin 3 Mg Tablet) 6 mg PO BEDTIME PRN PRN Reason: Insomnia Last Admin: 04/18/24 20:31 Dose: 6 mg Documented By: AHMET Miconazole Nitrate (Miconazole Nitrate 2% Powder 85 Gm Bottle) 1 appl TOPICAL BID [facility]; Protocol Last Admin: 04/25/24 20:52 Dose: 1 appl Documented By: СВЕТЛАНА Nicotine Polacrilex (Nicotine Polacrilex 2 Mg Gum) 4 mg BUCCAL Q2H PRN PRN Reason: Nicotine Cravings Ondansetron HCl (Ondansetron Hcl 4 Mg/2 Ml Vial) 4 mg IVPUSH Q8H PRN PRN Reason: Nausea and Vomiting Last Admin: 03/02/24 18:44 Dose: 4 mg Documented By: SEN Ondansetron HCl (Ondansetron Odt 4 Mg Tab.Rapdis) 4 mg TRANSLINGU Q6H PRN PRN Reason: Nausea and Vomiting Last Admin: 04/08/24 19:57 Dose: 4 mg Documented By: JENSEN Quetiapine Fumarate (Quetiapine Fumarate 25 Mg Tablet) 25 mg PO ONCE PRN PRN Reason: about 45 min before eeg Last Admin: 02/17/24 09:40 Dose: 25 mg Documented By: SHLOMO Risperidone (Risperidone Oral Peg 1 Mg/Ml Solution) 0.5 mg PO BID [facility] Last Admin: 04/25/24 20:50 Dose: 0.5 mg Documented By: СВЕТЛАНА Trazodone HCl (Trazodone Hcl 25 Mg Halftab) 25 mg PO BEDTIME PRN PRN Reason: Insomnia Last Admin: 04/02/24 20:26 Dose: 25 mg Documented By: AHMET Labs 04/23/24 05:41 04/23/24 05:42 Assessment and Plan (1) Cognitive and behavioral changes: Status: Acute Plan 83M PMH htn, unspecified dementia, admitted to [facility] 02/13/24 for FTT, not taking meds or food, transfered to medicine 02/14/24. 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 EEG showing general slowing but no seizure disorder ORNAMENT STITCHER appreciated, NDD3 solids, thin liquids bilateral conjunctivitis completed treatment Hypertension Transdermal clonidine Amlodipine Mood disorder Risperidone, trazodone DVT prophylaxis with Lovenox Full Code reason for continued hospitalization: Safe dispo The patient HCP is his step-daughter Alcides can be reached on [phone] Patient sister name is Dr. Nate Genao and her phone number is [phone] to be contacted for any updates. Quality Stroke Does the patient have a stroke diagnosis?: No VTE Prior VTE?: No VTE Risk Level:: Medical - moderate - high VTE Device Contraindication: Treatment Not Indicated VTE Drug Contraindication: N/A - Med Ordered
[2024-04-26] MEDS: risperiDONE Oral Sol 1 MG/ML SOLUTION 0.5 MG PO ×2 (09:26→20:53)
[2024-04-26] MEDS: Miconazole Nitrate 2% Powder 85 GM Bottle 1 APPL TOPICAL ×2 (09:27→20:53)
[2024-04-26 15:32] VITALS: BP 145/84; PULSE 68; RESP 16; TEMP 36.1; O2SAT 96
[2024-04-26] MEDS: Enoxaparin Sodium 40 MG/0.4 ML SYRINGE SUBCUT (16:21)
[2024-04-26 19:16] VITALS: BP 137/72; PULSE 65; RESP 18; TEMP 36.4; O2SAT 96
[2024-04-27 04:00] VITALS: BP 120/70; PULSE 70; RESP 17; TEMP 36.6; O2SAT 95
[2024-04-27 07:41] VITALS: BP 133/76; PULSE 64; RESP 16; TEMP 36.1; O2SAT 96
[2024-04-27] MEDS: risperiDONE Oral Sol 1 MG/ML SOLUTION 0.5 MG PO ×2 (08:49→20:10)
[2024-04-27] MEDS: Miconazole Nitrate 2% Powder 85 GM Bottle 1 APPL TOPICAL ×2 (08:55→20:10)
--- NOTE | 2024-04-27 09:03 | HO.PM.IMPN ---
Subjective Subjective Date of Service: 04/27/24 Interval History: seen and evaluated this morning laying comfortable in his bed no other events Review of Systems Review of Systems: Yes all other systems are reviewed and are negative Physical Exam Vital Signs: Vital Signs: Last Vital Signs Temp 96.9 F 04/27/24 07:41 Pulse 64 04/27/24 07:41 Resp 16 04/27/24 07:41 BP 133/76 04/27/24 07:41 Pulse Ox 96 04/27/24 07:41 O2 Del Method Room Air 04/27/24 07:41 O2 Flow Rate 2 03/28/24 07:24 BMI result Body Mass Index 20.6 Const: Other: Constitutional : Awake, not in distress Neck : Normal inspection, Supple Cardiovascular : no JVP, no lower extremity edema Skin : Warm, Dry Neurological : Alert & disoriented to place and time, No focal deficit Objective Data Active Medications Acetaminophen (Acetaminophen 325 Mg Tablet) 650 mg PO Q6H PRN PRN Reason: Pain, Mild (Pain Scale 1-3), fever or headache Last Admin: 04/18/24 09:51 Dose: 650 mg Documented By: TAWANA Al Hydroxide/Mg Hydroxide (Magnesium Hydrox/Alum Hydrox 30 Ml Oral.Susp) 30 ml PO Q6H PRN PRN Reason: Constipation Benzonatate (Benzonatate 100 Mg Capsule) 100 mg PO TID PRN PRN Reason: Cough Calcium Carbonate (Calcium Carbonate 750 Mg Tab.Chew) 750 mg PO Q4H PRN PRN Reason: Heartburn Clonidine (Clonidine 0.1 Mg Patch.Tdwk) 0.1 mg TRANSDERMA Tu@0900 [facility]; Protocol Last Admin: 04/21/24 09:08 Dose: 0.1 mg Documented By: TYRELL Enoxaparin Sodium (Enoxaparin Sodium 40 Mg/0.4 Ml Syringe) 40 mg SUBCUT Q24H [facility] Last Admin: 04/26/24 16:21 Dose: 40 mg Documented By: TYRELL Loperamide HCl (Loperamide Hcl 2 Mg Capsule) 2 mg PO Q4H PRN PRN Reason: Diarrhea Last Admin: 04/21/24 21:07 Dose: 2 mg Documented By: MARILEE Magnesium Hydroxide (Milk Of Magnesia 30 Ml Oral.Susp) 30 ml PO DAILY PRN PRN Reason: Constipation Melatonin (Melatonin 3 Mg Tablet) 6 mg PO BEDTIME PRN PRN Reason: Insomnia Last Admin: 04/18/24 20:31 Dose: 6 mg Documented By: AHMET Miconazole Nitrate (Miconazole Nitrate 2% Powder 85 Gm Bottle) 1 appl TOPICAL BID [facility]; Protocol Last Admin: 04/27/24 08:55 Dose: 1 appl Documented By: JESSICA Nicotine Polacrilex (Nicotine Polacrilex 2 Mg Gum) 4 mg BUCCAL Q2H PRN PRN Reason: Nicotine Cravings Ondansetron HCl (Ondansetron Hcl 4 Mg/2 Ml Vial) 4 mg IVPUSH Q8H PRN PRN Reason: Nausea and Vomiting Last Admin: 03/02/24 18:44 Dose: 4 mg Documented By: SEN Ondansetron HCl (Ondansetron Odt 4 Mg Tab.Rapdis) 4 mg TRANSLINGU Q6H PRN PRN Reason: Nausea and Vomiting Last Admin: 04/08/24 19:57 Dose: 4 mg Documented By: JENSEN Quetiapine Fumarate (Quetiapine Fumarate 25 Mg Tablet) 25 mg PO ONCE PRN PRN Reason: about 45 min before eeg Last Admin: 02/17/24 09:40 Dose: 25 mg Documented By: SHLOMO Risperidone (Risperidone Oral Peg 1 Mg/Ml Solution) 0.5 mg PO BID [facility] Last Admin: 04/27/24 08:49 Dose: 0.5 mg Documented By: JESSICA Comments: Trazodone HCl (Trazodone Hcl 25 Mg Halftab) 25 mg PO BEDTIME PRN PRN Reason: Insomnia Last Admin: 04/02/24 20:26 Dose: 25 mg Documented By: AHMET Labs 04/23/24 05:41 04/23/24 05:42 Assessment and Plan (1) Cognitive and behavioral changes: Status: Acute Plan 83M PMH htn, unspecified dementia, [facility]24 for FTT, not taking meds or food, transfered to medicine 02/14/24. 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 EEG showing general slowing but no seizure disorder TURNTABLE WORKER appreciated, NDD3 solids, thin liquids bilateral conjunctivitis completed treatment Hypertension Transdermal clonidine Amlodipine Mood disorder Risperidone, trazodone DVT prophylaxis with Lovenox Full Code reason for continued hospitalization: Safe dispo The patient HCP is his step-daughter Alcides can be reached on [phone] Patient sister name is Dr. Nate Genao and her phone number is [phone] to be contacted for any updates. Quality Stroke Does the patient have a stroke diagnosis?: No VTE Prior VTE?: No VTE Risk Level:: Medical - moderate - high VTE Device Contraindication: Treatment Not Indicated VTE Drug Contraindication: N/A - Med Ordered
--- NOTE | 2024-04-27 11:20 | MHC.CLN ---
F/U DIET=REGULAR, CHOPPED WITH FORTIFIED ICE CREAM TID. SUPPLEMENT PROVIDES 870 KCALS, 27 G PROTEIN. PO INTAKE CONTINUES TO BE USUALLY POOR, 0-25%. ODETTE=10. SKIN WITH REDNESS TO COCCYX. PATIENT IS CONFUSED AND RESISTIVE TO CARE. CONTINUE CURRENT DIET AND SUPPLEMENT. ENCOURAGE PO INTAKE ABLE. FOLLOW FOR PLAN OF CARE.
[2024-04-27 13:00] VITALS: BMI 20.2
[2024-04-27 15:22] VITALS: BP 135/69; PULSE 78; RESP 18; TEMP 36.1; O2SAT 95
[2024-04-27] MEDS: Loperamide HCl 2 MG CAPSULE PO (15:22)
[2024-04-27 19:43] VITALS: BP 161/85; PULSE 65; RESP 18; TEMP 36.1; O2SAT 98
[2024-04-28 02:53] VITALS: BP 155/67; PULSE 65; RESP 16; TEMP 36; O2SAT 98
[2024-04-28 07:22] VITALS: BP 144/76; PULSE 55; RESP 16; TEMP 36.1; O2SAT 96
--- NOTE | 2024-04-28 08:12 | P.PNIM_ITS ---
Subjective Subjective Date of Service: 04/28/24 Interval History: seen and evaluated this morning laying comfortable in his bed no other events Review of Systems Review of Systems: Yes all other systems are reviewed and are negative Physical Exam 2 Vital Signs: Vital Signs: Last Vital Signs Temp 97.0 F 04/28/24 07:22 Pulse 55 04/28/24 07:22 Resp 16 04/28/24 07:22 BP 144/76 H 04/28/24 07:22 Pulse Ox 96 04/28/24 07:22 O2 Del Method Room Air 04/28/24 07:22 O2 Flow Rate 2 03/28/24 07:24 BMI result Body Mass Index 20.2 Const: Other: Constitutional : Awake, not in distress Neck : Normal inspection, Supple Cardiovascular : no JVP, no lower extremity edema Skin : Warm, Dry Neurological : Alert & disoriented to place and time, No focal deficit Objective Data Active Medications Acetaminophen (Acetaminophen 325 Mg Tablet) 650 mg PO Q6H PRN PRN Reason: Pain, Mild (Pain Scale 1-3), fever or headache Last Admin: 04/18/24 09:51 Dose: 650 mg Documented By: TAWANA Al Hydroxide/Mg Hydroxide (Magnesium Hydrox/Alum Hydrox 30 Ml Oral.Susp) 30 ml PO Q6H PRN PRN Reason: Constipation Benzonatate (Benzonatate 100 Mg Capsule) 100 mg PO TID PRN PRN Reason: Cough Calcium Carbonate (Calcium Carbonate 750 Mg Tab.Chew) 750 mg PO Q4H PRN PRN Reason: Heartburn Clonidine (Clonidine 0.1 Mg Patch.Tdwk) 0.1 mg TRANSDERMA Tu@0900 [facility]; Protocol Last Admin: 04/21/24 09:08 Dose: 0.1 mg Documented By: TYRELL Enoxaparin Sodium (Enoxaparin Sodium 40 Mg/0.4 Ml Syringe) 40 mg SUBCUT Q24H [facility] Last Admin: 04/27/24 15:18 Dose: Not Given Documented By: JESSICA Non-Admin Reason: Physician Held Med Loperamide HCl (Loperamide Hcl 2 Mg Capsule) 2 mg PO Q4H PRN PRN Reason: Diarrhea Last Admin: 04/27/24 15:22 Dose: 2 mg Documented By: JESSICA Magnesium Hydroxide (Milk Of Magnesia 30 Ml Oral.Susp) 30 ml PO DAILY PRN PRN Reason: Constipation Melatonin (Melatonin 3 Mg Tablet) 6 mg PO BEDTIME PRN PRN Reason: Insomnia Last Admin: 04/18/24 20:31 Dose: 6 mg Documented By: AHMET Miconazole Nitrate (Miconazole Nitrate 2% Powder 85 Gm Bottle) 1 appl TOPICAL BID [facility]; Protocol Last Admin: 04/27/24 20:10 Dose: 1 appl Documented By: ILDEFONSO Nicotine Polacrilex (Nicotine Polacrilex 2 Mg Gum) 4 mg BUCCAL Q2H PRN PRN Reason: Nicotine Cravings Ondansetron HCl (Ondansetron Hcl 4 Mg/2 Ml Vial) 4 mg IVPUSH Q8H PRN PRN Reason: Nausea and Vomiting Last Admin: 03/02/24 18:44 Dose: 4 mg Documented By: SEN Ondansetron HCl (Ondansetron Odt 4 Mg Tab.Rapdis) 4 mg TRANSLINGU Q6H PRN PRN Reason: Nausea and Vomiting Last Admin: 04/08/24 19:57 Dose: 4 mg Documented By: JENSEN Quetiapine Fumarate (Quetiapine Fumarate 25 Mg Tablet) 25 mg PO ONCE PRN PRN Reason: about 45 min before eeg Last Admin: 02/17/24 09:40 Dose: 25 mg Documented By: SHLOMO Risperidone (Risperidone Oral Peg 1 Mg/Ml Solution) 0.5 mg PO BID [facility] Last Admin: 04/27/24 20:10 Dose: 0.5 mg Documented By: ILDEFONSO Trazodone HCl (Trazodone Hcl 25 Mg Halftab) 25 mg PO BEDTIME PRN PRN Reason: Insomnia Last Admin: 04/02/24 20:26 Dose: 25 mg Documented By: AHMET Labs 04/23/24 05:41 04/23/24 05:42 Assessment and Plan (1) Cognitive and behavioral changes: Status: Acute Plan 83M PMH htn, unspecified dementia, admitted to [facility] 02/13/24 for FTT, not taking meds or food, transfered to medicine 02/14/24. 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 Nate Genao and her phone number is [phone] to be contacted for any updates. Quality Stroke Does the patient have a stroke diagnosis?: No VTE Prior VTE?: No VTE Risk Level:: Medical - moderate - high VTE Device Contraindication: Treatment Not Indicated VTE Drug Contraindication: N/A - Med Ordered
[2024-04-28] MEDS: cloNIDine 0.1 MG PATCH.TDWK TRANSDERMA (09:12)
[2024-04-28] MEDS: Miconazole Nitrate 2% Powder 85 GM Bottle 1 APPL TOPICAL ×2 (09:13→20:14)
[2024-04-28] MEDS: risperiDONE Oral Sol 1 MG/ML SOLUTION 0.5 MG PO ×2 (09:13→20:15)
[2024-04-28 15:18] VITALS: BP 147/68; PULSE 74; RESP 18; TEMP 36.5; O2SAT 96
[2024-04-28] MEDS: Enoxaparin Sodium 40 MG/0.4 ML SYRINGE SUBCUT (16:36)
[2024-04-28 19:52] VITALS: BP 151/75; PULSE 88; RESP 18; TEMP 36.4; O2SAT 95
[2024-04-29 03:14] VITALS: BP 133/70; PULSE 63; RESP 16; TEMP 36.2; O2SAT 96
[2024-04-29 07:29] VITALS: BP 117/83; PULSE 62; RESP 16; TEMP 36.2; O2SAT 96
[2024-04-29] MEDS: risperiDONE Oral Sol 1 MG/ML SOLUTION 0.5 MG PO ×2 (08:19→19:23)
[2024-04-29] MEDS: Miconazole Nitrate 2% Powder 85 GM Bottle 1 APPL TOPICAL ×2 (08:20→19:25)
--- NOTE | 2024-04-29 11:44 | P.PNIM_ITS ---
Subjective Subjective Date of Service: 04/29/24 Interval History: seen and evaluated this morning laying comfortable in his bed no other events Physical Exam 2 Vital Signs: Vital Signs: Last Vital Signs Temp 97.2 F 04/29/24 07:29 Pulse 62 04/29/24 07:29 Resp 16 04/29/24 07:29 BP 117/83 04/29/24 07:29 Pulse Ox 96 04/29/24 07:29 O2 Del Method Room Air 04/29/24 07:29 O2 Flow Rate 2 03/28/24 07:24 BMI result Body Mass Index 20.2 Const: Other: Constitutional : Awake, not in distress Neck : Normal inspection, Supple Cardiovascular : no JVP, no lower extremity edema Skin : Warm, Dry Neurological : Alert & disoriented to place and time, No focal deficit Objective Data Active Medications Acetaminophen (Acetaminophen 325 Mg Tablet) 650 mg PO Q6H PRN PRN Reason: Pain, Mild (Pain Scale 1-3), fever or headache Last Admin: 04/18/24 09:51 Dose: 650 mg Documented By: TAWANA Al Hydroxide/Mg Hydroxide (Magnesium Hydrox/Alum Hydrox 30 Ml Oral.Susp) 30 ml PO Q6H PRN PRN Reason: Constipation Benzonatate (Benzonatate 100 Mg Capsule) 100 mg PO TID PRN PRN Reason: Cough Calcium Carbonate (Calcium Carbonate 750 Mg Tab.Chew) 750 mg PO Q4H PRN PRN Reason: Heartburn Clonidine (Clonidine 0.1 Mg Patch.Tdwk) 0.1 mg TRANSDERMA Tu@0900 [facility]; Protocol Last Admin: 04/28/24 09:12 Dose: 0.1 mg Documented By: CELINE Enoxaparin Sodium (Enoxaparin Sodium 40 Mg/0.4 Ml Syringe) 40 mg SUBCUT Q24H [facility] Last Admin: 04/28/24 16:36 Dose: 40 mg Documented By: CELINE Loperamide HCl (Loperamide Hcl 2 Mg Capsule) 2 mg PO Q4H PRN PRN Reason: Diarrhea Last Admin: 04/27/24 15:22 Dose: 2 mg Documented By: JESSICA Magnesium Hydroxide (Milk Of Magnesia 30 Ml Oral.Susp) 30 ml PO DAILY PRN PRN Reason: Constipation Melatonin (Melatonin 3 Mg Tablet) 6 mg PO BEDTIME PRN PRN Reason: Insomnia Last Admin: 04/18/24 20:31 Dose: 6 mg Documented By: AHMET Miconazole Nitrate (Miconazole Nitrate 2% Powder 85 Gm Bottle) 1 appl TOPICAL BID [facility]; Protocol Last Admin: 04/29/24 08:20 Dose: 1 appl Documented By: ALONDRA Nicotine Polacrilex (Nicotine Polacrilex 2 Mg Gum) 4 mg BUCCAL Q2H PRN PRN Reason: Nicotine Cravings Ondansetron HCl (Ondansetron Hcl 4 Mg/2 Ml Vial) 4 mg IVPUSH Q8H PRN PRN Reason: Nausea and Vomiting Last Admin: 03/02/24 18:44 Dose: 4 mg Documented By: SEN Ondansetron HCl (Ondansetron Odt 4 Mg Tab.Rapdis) 4 mg TRANSLINGU Q6H PRN PRN Reason: Nausea and Vomiting Last Admin: 04/08/24 19:57 Dose: 4 mg Documented By: JENSEN Quetiapine Fumarate (Quetiapine Fumarate 25 Mg Tablet) 25 mg PO ONCE PRN PRN Reason: about 45 min before eeg Last Admin: 02/17/24 09:40 Dose: 25 mg Documented By: SHLOMO Risperidone (Risperidone Oral Peg 1 Mg/Ml Solution) 0.5 mg PO BID [facility] Last Admin: 04/29/24 08:19 Dose: 0.5 mg Documented By: ALONDRA Trazodone HCl (Trazodone Hcl 25 Mg Halftab) 25 mg PO BEDTIME PRN PRN Reason: Insomnia Last Admin: 04/02/24 20:26 Dose: 25 mg Documented By: AHMET Labs 04/23/24 05:41 04/23/24 05:42 Assessment and Plan (1) Cognitive and behavioral changes: Status: Acute Plan 83M PMH htn, unspecified dementia, admitted to [facility] 02/13/24 for FTT, not taking meds or food, transfered to medicine 02/14/24. 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 EEG showing general slowing but no seizure disorder CUSTOMER RELATIONS REPRESENTATIVE appreciated, NDD3 solids, thin liquids bilateral conjunctivitis completed treatment Hypertension Transdermal clonidine Amlodipine Mood disorder Risperidone, trazodone DVT prophylaxis with Lovenox Full Code reason for continued hospitalization: Safe dispo The patient HCP is his step-daughter Alcides can be reached on [phone] Patient sister name is Dr. Nate Genao and her phone number is [phone] to be contacted for any updates. Quality Stroke Does the patient have a stroke diagnosis?: No VTE Prior VTE?: No VTE Risk Level:: Medical - moderate - high VTE Device Contraindication: Treatment Not Indicated VTE Drug Contraindication: N/A - Med Ordered
[2024-04-29 15:25] VITALS: BP 136/70; PULSE 66; RESP 16; TEMP 36.5; O2SAT 97
[2024-04-29] MEDS: Enoxaparin Sodium 40 MG/0.4 ML SYRINGE SUBCUT (17:13)
[2024-04-29] MEDS: Melatonin 3 MG TABLET 6 MG PO (19:24)
[2024-04-29] MEDS: traZODone HCL 25 MG HALFTAB PO (19:24)
[2024-04-29 19:50] VITALS: BP 118/74; PULSE 90; RESP 16; TEMP 36.1; O2SAT 97
[2024-04-30 03:10] VITALS: BP 150/77; PULSE 61; RESP 16; TEMP 36; O2SAT 99
[2024-04-30 07:47] VITALS: BP 131/66; PULSE 60; RESP 18; TEMP 36.5; O2SAT 98
[2024-04-30] MEDS: risperiDONE Oral Sol 1 MG/ML SOLUTION 0.5 MG PO ×2 (09:31→22:23)
[2024-04-30] MEDS: Miconazole Nitrate 2% Powder 85 GM Bottle 1 APPL TOPICAL ×2 (09:34→22:26)
--- NOTE | 2024-04-30 13:36 | HO.PM.IMPN ---
Subjective Subjective Date of Service: 04/30/24 Interval History: seen and evaluated this morning having breakfast in his bed no other events Review of Systems Review of Systems: Yes all other systems are reviewed and are negative Physical Exam Vital Signs: Vital Signs: Last Vital Signs Temp 97.7 F 04/30/24 07:47 Pulse 60 04/30/24 07:47 Resp 18 04/30/24 07:47 BP 131/66 04/30/24 07:47 Pulse Ox 98 04/30/24 07:47 O2 Del Method Room Air 04/30/24 07:47 O2 Flow Rate 2 03/28/24 07:24 BMI result Body Mass Index 20.2 Const: Other: Constitutional : Awake, not in distress Neck : Normal inspection, Supple Cardiovascular : no JVP, no lower extremity edema Skin : Warm, Dry Neurological : Alert & disoriented to place and time, No focal deficit Objective Data Active Medications Acetaminophen (Acetaminophen 325 Mg Tablet) 650 mg PO Q6H PRN PRN Reason: Pain, Mild (Pain Scale 1-3), fever or headache Last Admin: 04/18/24 09:51 Dose: 650 mg Documented By: TAWANA Al Hydroxide/Mg Hydroxide (Magnesium Hydrox/Alum Hydrox 30 Ml Oral.Susp) 30 ml PO Q6H PRN PRN Reason: Constipation Benzonatate (Benzonatate 100 Mg Capsule) 100 mg PO TID PRN PRN Reason: Cough Calcium Carbonate (Calcium Carbonate 750 Mg Tab.Chew) 750 mg PO Q4H PRN PRN Reason: Heartburn Clonidine (Clonidine 0.1 Mg Patch.Tdwk) 0.1 mg TRANSDERMA Tu@0900 [facility]; Protocol Last Admin: 04/28/24 09:12 Dose: 0.1 mg Documented By: CELINE Enoxaparin Sodium (Enoxaparin Sodium 40 Mg/0.4 Ml Syringe) 40 mg SUBCUT Q24H [facility] Last Admin: 04/29/24 17:13 Dose: 40 mg Documented By: ALONDRA Loperamide HCl (Loperamide Hcl 2 Mg Capsule) 2 mg PO Q4H PRN PRN Reason: Diarrhea Last Admin: 04/27/24 15:22 Dose: 2 mg Documented By: JESSICA Magnesium Hydroxide (Milk Of Magnesia 30 Ml Oral.Susp) 30 ml PO DAILY PRN PRN Reason: Constipation Melatonin (Melatonin 3 Mg Tablet) 6 mg PO BEDTIME PRN PRN Reason: Insomnia Last Admin: 04/29/24 19:24 Dose: 6 mg Documented By: ADAMARIS Miconazole Nitrate (Miconazole Nitrate 2% Powder 85 Gm Bottle) 1 appl TOPICAL BID [facility]; Protocol Last Admin: 04/30/24 09:34 Dose: 1 appl Documented By: JORGE Nicotine Polacrilex (Nicotine Polacrilex 2 Mg Gum) 4 mg BUCCAL Q2H PRN PRN Reason: Nicotine Cravings Ondansetron HCl (Ondansetron Hcl 4 Mg/2 Ml Vial) 4 mg IVPUSH Q8H PRN PRN Reason: Nausea and Vomiting Last Admin: 03/02/24 18:44 Dose: 4 mg Documented By: SEN Ondansetron HCl (Ondansetron Odt 4 Mg Tab.Rapdis) 4 mg TRANSLINGU Q6H PRN PRN Reason: Nausea and Vomiting Last Admin: 04/08/24 19:57 Dose: 4 mg Documented By: JENSEN Quetiapine Fumarate (Quetiapine Fumarate 25 Mg Tablet) 25 mg PO ONCE PRN PRN Reason: about 45 min before eeg Last Admin: 02/17/24 09:40 Dose: 25 mg Documented By: SHLOMO Risperidone (Risperidone Oral Peg 1 Mg/Ml Solution) 0.5 mg PO BID [facility] Last Admin: 04/30/24 09:31 Dose: 0.5 mg Documented By: JORGE Trazodone HCl (Trazodone Hcl 25 Mg Halftab) 25 mg PO BEDTIME PRN PRN Reason: Insomnia Last Admin: 04/29/24 19:24 Dose: 25 mg Documented By: ADAMARIS Labs 04/23/24 05:41 04/23/24 05:42 Assessment and Plan (1) Cognitive and behavioral changes: Status: Acute Plan 83M PMH htn, unspecified dementia, admitted to [facility] 02/13/24 for FTT, not taking meds or food, transfered to medicine 02/14/24. 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 EEG showing general slowing but no seizure disorder FOOD PRODUCTION ASSOCIATE appreciated, NDD3 solids, thin liquids bilateral conjunctivitis completed treatment Hypertension Transdermal clonidine Amlodipine Mood disorder Risperidone, trazodone DVT prophylaxis with Lovenox Full Code reason for continued hospitalization: Safe dispo The patient HCP is his step-daughter Alcides can be reached on [phone] Patient sister name is Dr. Nate Genao and her phone number is [phone] to be contacted for any updates. Quality Stroke Does the patient have a stroke diagnosis?: No VTE Prior VTE?: No VTE Risk Level:: Medical - moderate - high VTE Device Contraindication: Treatment Not Indicated VTE Drug Contraindication: N/A - Med Ordered
[2024-04-30] MEDS: Enoxaparin Sodium 40 MG/0.4 ML SYRINGE SUBCUT (15:17)
[2024-04-30 15:21] VITALS: BP 172/77; PULSE 80; RESP 17; TEMP 36.7; O2SAT 97
[2024-04-30 19:44] VITALS: BP 143/80; PULSE 110; RESP 17; TEMP 36.7; O2SAT 96
[2024-05-01 03:08] VITALS: BP 136/66; PULSE 69; RESP 16; TEMP 36.1; O2SAT 99
[2024-05-01 08:00] VITALS: BP 146/77; PULSE 57; RESP 16; TEMP 36.9; O2SAT 98
[2024-05-01] MEDS: risperiDONE Oral Sol 1 MG/ML SOLUTION 0.5 MG PO ×2 (08:32→21:49)
[2024-05-01] MEDS: Miconazole Nitrate 2% Powder 85 GM Bottle 1 APPL TOPICAL ×2 (08:32→21:49)
--- NOTE | 2024-05-01 12:31 | MHC.CM.PN ---
Addendum entered by Mayra Martinez 05/01/24 14:45: A call to the conservators has been placed today. Pam Higgins informed t/w of the process now that the [facility] order has been received. She stated that the case will be assigned to one of the social workers. The [employer] application will be completed and submitted. They will contact [facility]. They will let us know when we can start the referral process. The goal is to refer to LTC next week. Original Note: Court Papers for Covservatorship have been received this week, 04/28/24. Finacial information can now be gathered by the Conservator for the [employer] application. DP LTC in a SNF via BLS.
--- NOTE | 2024-05-01 13:36 | P.PNIM_ITS ---
Subjective Subjective Date of Service: 05/01/24 Interval History: seen and evaluated this morning resting in his bed no other events Review of Systems No complaints Physical Exam 2 Vital Signs: Vital Signs: Last Vital Signs Temp 98.5 F 05/01/24 08:00 Pulse 57 05/01/24 08:00 Resp 16 05/01/24 08:00 BP 146/77 H 05/01/24 08:00 Pulse Ox 98 05/01/24 08:00 O2 Del Method Room Air 05/01/24 08:00 O2 Flow Rate 2 03/28/24 07:24 BMI result Body Mass Index 20.2 Const: Other: Constitutional : Awake, not in distress Neck : Normal inspection, Supple Cardiovascular : no JVP, no lower extremity edema Skin : Warm, Dry Neurological : Alert & disoriented to place and time, No focal deficit Objective Data Active Medications Acetaminophen (Acetaminophen 325 Mg Tablet) 650 mg PO Q6H PRN PRN Reason: Pain, Mild (Pain Scale 1-3), fever or headache Last Admin: 04/18/24 09:51 Dose: 650 mg Documented By: TAWANA Al Hydroxide/Mg Hydroxide (Magnesium Hydrox/Alum Hydrox 30 Ml Oral.Susp) 30 ml PO Q6H PRN PRN Reason: Constipation Benzonatate (Benzonatate 100 Mg Capsule) 100 mg PO TID PRN PRN Reason: Cough Calcium Carbonate (Calcium Carbonate 750 Mg Tab.Chew) 750 mg PO Q4H PRN PRN Reason: Heartburn Clonidine (Clonidine 0.1 Mg Patch.Tdwk) 0.1 mg TRANSDERMA Tu@0900 [facility]; Protocol Last Admin: 04/28/24 09:12 Dose: 0.1 mg Documented By: CELINE Enoxaparin Sodium (Enoxaparin Sodium 40 Mg/0.4 Ml Syringe) 40 mg SUBCUT Q24H [facility] Last Admin: 04/30/24 15:17 Dose: 40 mg Documented By: JORGE Loperamide HCl (Loperamide Hcl 2 Mg Capsule) 2 mg PO Q4H PRN PRN Reason: Diarrhea Last Admin: 04/27/24 15:22 Dose: 2 mg Documented By: JESSICA Magnesium Hydroxide (Milk Of Magnesia 30 Ml Oral.Susp) 30 ml PO DAILY PRN PRN Reason: Constipation Melatonin (Melatonin 3 Mg Tablet) 6 mg PO BEDTIME PRN PRN Reason: Insomnia Last Admin: 04/29/24 19:24 Dose: 6 mg Documented By: ADAMARIS Miconazole Nitrate (Miconazole Nitrate 2% Powder 85 Gm Bottle) 1 appl TOPICAL BID [facility]; Protocol Last Admin: 05/01/24 08:32 Dose: 1 appl Documented By: JORGE Nicotine Polacrilex (Nicotine Polacrilex 2 Mg Gum) 4 mg BUCCAL Q2H PRN PRN Reason: Nicotine Cravings Ondansetron HCl (Ondansetron Hcl 4 Mg/2 Ml Vial) 4 mg IVPUSH Q8H PRN PRN Reason: Nausea and Vomiting Last Admin: 03/02/24 18:44 Dose: 4 mg Documented By: SEN Ondansetron HCl (Ondansetron Odt 4 Mg Tab.Rapdis) 4 mg TRANSLINGU Q6H PRN PRN Reason: Nausea and Vomiting Last Admin: 04/08/24 19:57 Dose: 4 mg Documented By: JENSEN Quetiapine Fumarate (Quetiapine Fumarate 25 Mg Tablet) 25 mg PO ONCE PRN PRN Reason: about 45 min before eeg Last Admin: 02/17/24 09:40 Dose: 25 mg Documented By: SHLOMO Risperidone (Risperidone Oral Peg 1 Mg/Ml Solution) 0.5 mg PO BID [facility] Last Admin: 05/01/24 08:32 Dose: 0.5 mg Documented By: JORGE Trazodone HCl (Trazodone Hcl 25 Mg Halftab) 25 mg PO BEDTIME PRN PRN Reason: Insomnia Last Admin: 04/29/24 19:24 Dose: 25 mg Documented By: ADAMARIS Labs 04/23/24 05:41 04/23/24 05:42 Assessment and Plan (1) Cognitive and behavioral changes: Status: Acute Plan 83M PMH htn, unspecified dementia, admitted to [facility] 02/13/24 for FTT, not taking meds or food, transfered to medicine 02/14/24. 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 EEG showing general slowing but no seizure disorder MILLINERY WORKER appreciated, NDD3 solids, thin liquids bilateral conjunctivitis completed treatment Hypertension Transdermal clonidine Amlodipine Mood disorder Risperidone, trazodone DVT prophylaxis with Lovenox Full Code reason for continued hospitalization: Safe dispo The patient HCP is his step-daughter Alcides can be reached on [phone] Patient sister name is Dr. Nate Genao and her phone number is [phone] to be contacted for any updates. Quality Stroke Does the patient have a stroke diagnosis?: No VTE Prior VTE?: No VTE Risk Level:: Medical - moderate - high VTE Device Contraindication: Treatment Not Indicated VTE Drug Contraindication: N/A - Med Ordered
[2024-05-01 14:56] VITALS: BP 165/77; PULSE 83; RESP 17; TEMP 36.2; O2SAT 95
[2024-05-01] MEDS: Enoxaparin Sodium 40 MG/0.4 ML SYRINGE SUBCUT (15:41)
[2024-05-01 19:02] VITALS: BP 144/71; PULSE 94; RESP 17; TEMP 36.2; O2SAT 95
[2024-05-02 03:42] VITALS: BP 145/77; PULSE 67; RESP 16; TEMP 36.3; O2SAT 97
[2024-05-02 08:00] VITALS: BP 142/78; PULSE 60; RESP 16; TEMP 36.1; O2SAT 96
[2024-05-02] MEDS: risperiDONE Oral Sol 1 MG/ML SOLUTION 0.5 MG PO ×2 (09:56→20:25)
[2024-05-02] MEDS: Miconazole Nitrate 2% Powder 85 GM Bottle 1 APPL TOPICAL ×2 (09:56→20:26)
--- NOTE | 2024-05-02 11:48 | HO.PM.IMPN ---
Subjective Subjective Date of Service: 05/02/24 Interval History: seen and evaluated this morning resting in his bed no other events Review of Systems No complaints Physical Exam Vital Signs: Vital Signs: Last Vital Signs Temp 97.0 F 05/02/24 08:00 Pulse 60 05/02/24 08:00 Resp 16 05/02/24 08:00 BP 142/78 H 05/02/24 08:00 Pulse Ox 96 05/02/24 08:00 O2 Del Method Room Air 05/02/24 08:00 O2 Flow Rate 2 03/28/24 07:24 BMI result Body Mass Index 20.2 Const: Other: Constitutional : Awake, not in distress Neck : Normal inspection, Supple Cardiovascular : no JVP, no lower extremity edema Skin : Warm, Dry Neurological : Alert & disoriented to place and time, No focal deficit Objective Data Active Medications Acetaminophen (Acetaminophen 325 Mg Tablet) 650 mg PO Q6H PRN PRN Reason: Pain, Mild (Pain Scale 1-3), fever or headache Last Admin: 04/18/24 09:51 Dose: 650 mg Documented By: TAWANA Al Hydroxide/Mg Hydroxide (Magnesium Hydrox/Alum Hydrox 30 Ml Oral.Susp) 30 ml PO Q6H PRN PRN Reason: Constipation Benzonatate (Benzonatate 100 Mg Capsule) 100 mg PO TID PRN PRN Reason: Cough Calcium Carbonate (Calcium Carbonate 750 Mg Tab.Chew) 750 mg PO Q4H PRN PRN Reason: Heartburn Clonidine (Clonidine 0.1 Mg Patch.Tdwk) 0.1 mg TRANSDERMA Tu@0900 [facility]; Protocol Last Admin: 04/28/24 09:12 Dose: 0.1 mg Documented By: CELINE Enoxaparin Sodium (Enoxaparin Sodium 40 Mg/0.4 Ml Syringe) 40 mg SUBCUT Q24H [facility] Last Admin: 05/01/24 15:41 Dose: 40 mg Documented By: JORGE Loperamide HCl (Loperamide Hcl 2 Mg Capsule) 2 mg PO Q4H PRN PRN Reason: Diarrhea Last Admin: 04/27/24 15:22 Dose: 2 mg Documented By: JESSICA Magnesium Hydroxide (Milk Of Magnesia 30 Ml Oral.Susp) 30 ml PO DAILY PRN PRN Reason: Constipation Melatonin (Melatonin 3 Mg Tablet) 6 mg PO BEDTIME PRN PRN Reason: Insomnia Last Admin: 04/29/24 19:24 Dose: 6 mg Documented By: ADAMARIS Miconazole Nitrate (Miconazole Nitrate 2% Powder 85 Gm Bottle) 1 appl TOPICAL BID [facility]; Protocol Last Admin: 05/02/24 09:56 Dose: 1 appl Documented By: KALANI Nicotine Polacrilex (Nicotine Polacrilex 2 Mg Gum) 4 mg BUCCAL Q2H PRN PRN Reason: Nicotine Cravings Ondansetron HCl (Ondansetron Hcl 4 Mg/2 Ml Vial) 4 mg IVPUSH Q8H PRN PRN Reason: Nausea and Vomiting Last Admin: 03/02/24 18:44 Dose: 4 mg Documented By: SEN Ondansetron HCl (Ondansetron Odt 4 Mg Tab.Rapdis) 4 mg TRANSLINGU Q6H PRN PRN Reason: Nausea and Vomiting Last Admin: 04/08/24 19:57 Dose: 4 mg Documented By: JENSEN Quetiapine Fumarate (Quetiapine Fumarate 25 Mg Tablet) 25 mg PO ONCE PRN PRN Reason: about 45 min before eeg Last Admin: 02/17/24 09:40 Dose: 25 mg Documented By: SHLOMO Risperidone (Risperidone Oral Peg 1 Mg/Ml Solution) 0.5 mg PO BID [facility] Last Admin: 05/02/24 09:56 Dose: 0.5 mg Documented By: KALANI Trazodone HCl (Trazodone Hcl 25 Mg Halftab) 25 mg PO BEDTIME PRN PRN Reason: Insomnia Last Admin: 04/29/24 19:24 Dose: 25 mg Documented By: ADAMRAIS Labs 04/23/24 05:41 04/23/24 05:42 Assessment and Plan (1) Cognitive and behavioral changes: Status: Acute Plan 83M PMH htn, unspecified dementia, [facility] 02/13[facility]24 for FTT, not taking meds or food, transfered to medicine 02/14/24. 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 EEG showing general slowing but no seizure disorder DEVELOPMENT MECHANIC appreciated, NDD3 solids, thin liquids bilateral conjunctivitis completed treatment Hypertension Transdermal clonidine Amlodipine Mood disorder Risperidone, trazodone DVT prophylaxis with Lovenox Full Code reason for continued hospitalization: Safe dispo The patient HCP is his step-daughter Alcides can be reached on [phone] Patient sister name is Dr. Nate Genao and her phone number is [phone] to be contacted for any updates. Quality Stroke Does the patient have a stroke diagnosis?: No VTE Prior VTE?: No VTE Risk Level:: Medical - moderate - high VTE Device Contraindication: Treatment Not Indicated VTE Drug Contraindication: N/A - Med Ordered
[2024-05-02] MEDS: Acetaminophen 325 MG TABLET 650 MG PO (13:31)
[2024-05-02 15:14] VITALS: BP 152/74; PULSE 104; RESP 12; TEMP 36.6; O2SAT 97
[2024-05-02] MEDS: Enoxaparin Sodium 40 MG/0.4 ML SYRINGE SUBCUT (15:32)
[2024-05-02 19:34] VITALS: BP 149/84; PULSE 90; RESP 16; TEMP 36.3; O2SAT 95
[2024-05-03 03:16] VITALS: BP 149/72; PULSE 64; RESP 14; TEMP 36; O2SAT 98
[2024-05-03 07:56] VITALS: BP 143/67; PULSE 68; RESP 14; TEMP 36.4; O2SAT 97
[2024-05-03] MEDS: risperiDONE Oral Sol 1 MG/ML SOLUTION 0.5 MG PO ×2 (08:46→21:13)
[2024-05-03] MEDS: Miconazole Nitrate 2% Powder 85 GM Bottle 1 APPL TOPICAL ×2 (08:47→21:13)
--- NOTE | 2024-05-03 11:21 | HO.PM.IMPN ---
Subjective Subjective Date of Service: 05/03/24 Interval History: seen and evaluated this morning resting in his bed no other events Physical Exam Vital Signs: Vital Signs: Last Vital Signs Temp 97.5 F 05/03/24 07:56 Pulse 68 05/03/24 07:56 Resp 14 05/03/24 07:56 BP 143/67 H 05/03/24 07:56 Pulse Ox 97 05/03/24 07:56 O2 Del Method Room Air 05/03/24 07:56 O2 Flow Rate 2 03/28/24 07:24 BMI result Body Mass Index 20.2 Const: Other: Constitutional : Awake, not in distress Neck : Normal inspection, Supple Cardiovascular : no JVP, no lower extremity edema Skin : Warm, Dry Neurological : Alert & disoriented to place and time, No focal deficit Objective Data Active Medications Acetaminophen (Acetaminophen 325 Mg Tablet) 650 mg PO Q6H PRN PRN Reason: Pain, Mild (Pain Scale 1-3), fever or headache Last Admin: 05/02/24 13:31 Dose: 650 mg Documented By: KALANI Al Hydroxide/Mg Hydroxide (Magnesium Hydrox/Alum Hydrox 30 Ml Oral.Susp) 30 ml PO Q6H PRN PRN Reason: Constipation Benzonatate (Benzonatate 100 Mg Capsule) 100 mg PO TID PRN PRN Reason: Cough Calcium Carbonate (Calcium Carbonate 750 Mg Tab.Chew) 750 mg PO Q4H PRN PRN Reason: Heartburn Clonidine (Clonidine 0.1 Mg Patch.Tdwk) 0.1 mg TRANSDERMA Tu@0900 [facility]; Protocol Last Admin: 04/28/24 09:12 Dose: 0.1 mg Documented By: CELINE Enoxaparin Sodium (Enoxaparin Sodium 40 Mg/0.4 Ml Syringe) 40 mg SUBCUT Q24H [facility] Last Admin: 05/02/24 15:32 Dose: 40 mg Documented By: KALANI Loperamide HCl (Loperamide Hcl 2 Mg Capsule) 2 mg PO Q4H PRN PRN Reason: Diarrhea Last Admin: 04/27/24 15:22 Dose: 2 mg Documented By: JESSICA Magnesium Hydroxide (Milk Of Magnesia 30 Ml Oral.Susp) 30 ml PO DAILY PRN PRN Reason: Constipation Melatonin (Melatonin 3 Mg Tablet) 6 mg PO BEDTIME PRN PRN Reason: Insomnia Last Admin: 04/29/24 19:24 Dose: 6 mg Documented By: ADAMARIS Miconazole Nitrate (Miconazole Nitrate 2% Powder 85 Gm Bottle) 1 appl TOPICAL BID [facility]; Protocol Last Admin: 05/03/24 08:47 Dose: 1 appl Documented By: RADHA Nicotine Polacrilex (Nicotine Polacrilex 2 Mg Gum) 4 mg BUCCAL Q2H PRN PRN Reason: Nicotine Cravings Ondansetron HCl (Ondansetron Hcl 4 Mg/2 Ml Vial) 4 mg IVPUSH Q8H PRN PRN Reason: Nausea and Vomiting Last Admin: 03/02/24 18:44 Dose: 4 mg Documented By: SEN Ondansetron HCl (Ondansetron Odt 4 Mg Tab.Rapdis) 4 mg TRANSLINGU Q6H PRN PRN Reason: Nausea and Vomiting Last Admin: 04/08/24 19:57 Dose: 4 mg Documented By: JENSEN Quetiapine Fumarate (Quetiapine Fumarate 25 Mg Tablet) 25 mg PO ONCE PRN PRN Reason: about 45 min before eeg Last Admin: 02/17/24 09:40 Dose: 25 mg Documented By: SHLOMO Risperidone (Risperidone Oral Peg 1 Mg/Ml Solution) 0.5 mg PO BID [facility] Last Admin: 05/03/24 08:46 Dose: 0.5 mg Documented By: RADHA Trazodone HCl (Trazodone Hcl 25 Mg Halftab) 25 mg PO BEDTIME PRN PRN Reason: Insomnia Last Admin: 04/29/24 19:24 Dose: 25 mg Documented By: ADAMARIS Labs 04/23/24 05:41 04/23/24 05:42 Assessment and Plan (1) Cognitive and behavioral changes: Status: Acute Plan 83M PMH htn, unspecified dementia, admitted to [facility] 02/13/24 for FTT, not taking meds or food, transfered to medicine 02/14/24. 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 EEG showing general slowing but no seizure disorder CALL OR CONTACT CENTRE MANAGER appreciated, NDD3 solids, thin liquids bilateral conjunctivitis completed treatment Hypertension Transdermal clonidine Amlodipine Mood disorder Risperidone, trazodone DVT prophylaxis with Lovenox Full Code reason for continued hospitalization: Safe dispo The patient HCP is his step-daughter Alcides can be reached on [phone] Patient sister name is Dr. Nate Genao and her phone number is [phone] to be contacted for any updates. Quality Stroke Does the patient have a stroke diagnosis?: No VTE Prior VTE?: No VTE Risk Level:: Medical - moderate - high VTE Device Contraindication: Treatment Not Indicated VTE Drug Contraindication: N/A - Med Ordered
[2024-05-03 15:10] VITALS: BP 154/81; PULSE 91; RESP 16; TEMP 36.6; O2SAT 95
[2024-05-03] MEDS: Enoxaparin Sodium 40 MG/0.4 ML SYRINGE SUBCUT (15:50)
[2024-05-03 19:58] VITALS: BP 166/83; PULSE 88; RESP 18; TEMP 36.4; O2SAT 95
[2024-05-04 03:20] VITALS: BP 170/73; PULSE 73; RESP 18; TEMP 36.2; O2SAT 96
[2024-05-04 08:00] VITALS: BP 141/77; PULSE 67; RESP 16; TEMP 36.6; O2SAT 98
[2024-05-04] MEDS: risperiDONE Oral Sol 1 MG/ML SOLUTION 0.5 MG PO ×2 (08:17→21:05)
[2024-05-04] MEDS: Miconazole Nitrate 2% Powder 85 GM Bottle 1 APPL TOPICAL ×2 (08:18→21:06)
--- NOTE | 2024-05-04 13:07 | MHC.CLN ---
F/U DIET=REGULAR, CHOPPED WITH FORTIFIED ICE CREAM TID. FORTIFIED ICE CREAM PROVIDES 870 KCALS, 27 G PROTEIN. PO INTAKE VARIABLE, 25-100%. ADDING ENSURE TID TO PROMOTE SKIN INTEGRITY AND NUTRITIONAL INTAKE. ENSURE TID PROVIDES 1050 KCALS, 60 G PROTEIN. ODETTE=12. SKIN WITH REDNESS TO BUTTOCKS AND BILATERAL HEELS. REVIEW OF WEIGHT HX SHOWS VARYING WEIGHTS WITH SUSPECTED WEIGHT LOSS >10% X 2 MONTHS. CONTINUE CURRENT DIET AND SUPPLEMENT. ENCOURAGE PO INTAKE ABLE. FOLLOW FOR PLAN OF CARE.
--- NOTE | 2024-05-04 14:28 | P.PNIM_ITS ---
Subjective Subjective Date of Service: 05/04/24 Interval History: seen and evaluated this morning resting in his bed no other events Review of Systems Review of Systems: Yes all other systems are reviewed and are negative Physical Exam 2 Vital Signs: Vital Signs: Last Vital Signs Temp 97.8 F 05/04/24 08:00 Pulse 67 05/04/24 08:00 Resp 16 05/04/24 08:00 BP 141/77 H 05/04/24 08:00 Pulse Ox 98 05/04/24 08:00 O2 Del Method Room Air 05/04/24 08:00 O2 Flow Rate 2 03/28/24 07:24 BMI result Body Mass Index 20.2 Const: Other: Constitutional : Awake, not in distress Neck : Normal inspection, Supple Cardiovascular : no JVP, no lower extremity edema Skin : Warm, Dry Neurological : Alert & disoriented to place and time, No focal deficit Objective Data Active Medications Acetaminophen (Acetaminophen 325 Mg Tablet) 650 mg PO Q6H PRN PRN Reason: Pain, Mild (Pain Scale 1-3), fever or headache Last Admin: 05/02/24 13:31 Dose: 650 mg Documented By: KALANI Al Hydroxide/Mg Hydroxide (Magnesium Hydrox/Alum Hydrox 30 Ml Oral.Susp) 30 ml PO Q6H PRN PRN Reason: Constipation Benzonatate (Benzonatate 100 Mg Capsule) 100 mg PO TID PRN PRN Reason: Cough Calcium Carbonate (Calcium Carbonate 750 Mg Tab.Chew) 750 mg PO Q4H PRN PRN Reason: Heartburn Clonidine (Clonidine 0.1 Mg Patch.Tdwk) 0.1 mg TRANSDERMA Tu@0900 [facility]; Protocol Last Admin: 04/28/24 09:12 Dose: 0.1 mg Documented By: CELINE Enoxaparin Sodium (Enoxaparin Sodium 40 Mg/0.4 Ml Syringe) 40 mg SUBCUT Q24H [facility] Last Admin: 05/03/24 15:50 Dose: 40 mg Documented By: RADHA Loperamide HCl (Loperamide Hcl 2 Mg Capsule) 2 mg PO Q4H PRN PRN Reason: Diarrhea Last Admin: 04/27/24 15:22 Dose: 2 mg Documented By: JESSICA Magnesium Hydroxide (Milk Of Magnesia 30 Ml Oral.Susp) 30 ml PO DAILY PRN PRN Reason: Constipation Melatonin (Melatonin 3 Mg Tablet) 6 mg PO BEDTIME PRN PRN Reason: Insomnia Last Admin: 04/29/24 19:24 Dose: 6 mg Documented By: ADAMARIS Miconazole Nitrate (Miconazole Nitrate 2% Powder 85 Gm Bottle) 1 appl TOPICAL BID [facility]; Protocol Last Admin: 05/04/24 08:18 Dose: 1 appl Documented By: LATRICIA Nicotine Polacrilex (Nicotine Polacrilex 2 Mg Gum) 4 mg BUCCAL Q2H PRN PRN Reason: Nicotine Cravings Ondansetron HCl (Ondansetron Hcl 4 Mg/2 Ml Vial) 4 mg IVPUSH Q8H PRN PRN Reason: Nausea and Vomiting Last Admin: 03/02/24 18:44 Dose: 4 mg Documented By: SEN Ondansetron HCl (Ondansetron Odt 4 Mg Tab.Rapdis) 4 mg TRANSLINGU Q6H PRN PRN Reason: Nausea and Vomiting Last Admin: 04/08/24 19:57 Dose: 4 mg Documented By: JENSEN Quetiapine Fumarate (Quetiapine Fumarate 25 Mg Tablet) 25 mg PO ONCE PRN PRN Reason: about 45 min before eeg Last Admin: 02/17/24 09:40 Dose: 25 mg Documented By: SHLOMO Risperidone (Risperidone Oral Peg 1 Mg/Ml Solution) 0.5 mg PO BID [facility] Last Admin: 05/04/24 08:17 Dose: 0.5 mg Documented By: LATRICIA Trazodone HCl (Trazodone Hcl 25 Mg Halftab) 25 mg PO BEDTIME PRN PRN Reason: Insomnia Last Admin: 04/29/24 19:24 Dose: 25 mg Documented By: ADAMARIS Labs 04/23/24 05:41 04/23/24 05:42 Assessment and Plan (1) Cognitive and behavioral changes: Status: Acute Plan 83M PMH htn, unspecified dementia, [facility] 02[facility]13/24 for FTT, not taking meds or food, transfered to medicine 02/14/24. 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 EEG showing general slowing but no seizure disorder TRIMMER AND REINFORCER appreciated, NDD3 solids, thin liquids bilateral conjunctivitis completed treatment Hypertension Transdermal clonidine Amlodipine Mood disorder Risperidone, trazodone DVT prophylaxis with Lovenox Full Code reason for continued hospitalization: Safe dispo The patient HCP is his step-daughter Alcides can be reached on [phone] Patient sister name is Dr. Nate Genao and her phone number is [phone] to be contacted for any updates. Quality Stroke Does the patient have a stroke diagnosis?: No VTE Prior VTE?: No VTE Risk Level:: Medical - moderate - high VTE Device Contraindication: Treatment Not Indicated VTE Drug Contraindication: N/A - Med Ordered
[2024-05-04 16:00] VITALS: BP 149/82; PULSE 94; RESP 16; TEMP 36.8
--- NOTE | 2024-05-04 16:02 | MHC.CM.PN ---
Conservator is in place. [facility] application to be completed and submitted by Conservator. [facility] will be notified once the application has been submitted. DP LTC via BLS.
[2024-05-04] MEDS: Enoxaparin Sodium 40 MG/0.4 ML SYRINGE SUBCUT (16:32)
[2024-05-04 19:08] VITALS: BP 152/80; PULSE 100; RESP 17; TEMP 36.2; O2SAT 95
[2024-05-05 02:55] VITALS: BP 134/68; PULSE 67; RESP 16; TEMP 36.5; O2SAT 95
[2024-05-05 07:20] VITALS: BP 136/64; PULSE 70; RESP 14; TEMP 36.4; O2SAT 98
[2024-05-05] MEDS: cloNIDine 0.1 MG PATCH.TDWK TRANSDERMA (08:10)
[2024-05-05] MEDS: Miconazole Nitrate 2% Powder 85 GM Bottle 1 APPL TOPICAL ×2 (08:13→21:46)
[2024-05-05] MEDS: risperiDONE Oral Sol 1 MG/ML SOLUTION 0.5 MG PO ×2 (08:13→21:44)
--- NOTE | 2024-05-05 11:50 | P.PNIM_ITS ---
Subjective Subjective Date of Service: 05/05/24 Interval History: seen and evaluated this morning laying comfortable in his bed no other events Review of Systems No complaints Physical Exam 2 Vital Signs: Vital Signs: Last Vital Signs Temp 97.6 F 05/05/24 07:20 Pulse 70 05/05/24 07:20 Resp 14 05/05/24 07:20 BP 136/64 05/05/24 07:20 Pulse Ox 98 05/05/24 07:20 O2 Del Method Room Air 05/05/24 07:20 O2 Flow Rate 2 03/28/24 07:24 BMI result Body Mass Index 20.2 Const: Other: Constitutional : Awake, not in distress Neck : Normal inspection, Supple Cardiovascular : no JVP, no lower extremity edema Skin : Warm, Dry Neurological : Alert & disoriented to place and time, No focal deficit Objective Data Active Medications Acetaminophen (Acetaminophen 325 Mg Tablet) 650 mg PO Q6H PRN PRN Reason: Pain, Mild (Pain Scale 1-3), fever or headache Last Admin: 05/02/24 13:31 Dose: 650 mg Documented By: KALANI Al Hydroxide/Mg Hydroxide (Magnesium Hydrox/Alum Hydrox 30 Ml Oral.Susp) 30 ml PO Q6H PRN PRN Reason: Constipation Benzonatate (Benzonatate 100 Mg Capsule) 100 mg PO TID PRN PRN Reason: Cough Calcium Carbonate (Calcium Carbonate 750 Mg Tab.Chew) 750 mg PO Q4H PRN PRN Reason: Heartburn Clonidine (Clonidine 0.1 Mg Patch.Tdwk) 0.1 mg TRANSDERMA Tu@0900 [facility]; Protocol Last Admin: 05/05/24 08:10 Dose: 0.1 mg Documented By: LATRICIA Enoxaparin Sodium (Enoxaparin Sodium 40 Mg/0.4 Ml Syringe) 40 mg SUBCUT Q24H [facility] Last Admin: 05/04/24 16:32 Dose: 40 mg Documented By: LATRICIA Loperamide HCl (Loperamide Hcl 2 Mg Capsule) 2 mg PO Q4H PRN PRN Reason: Diarrhea Last Admin: 04/27/24 15:22 Dose: 2 mg Documented By: JESSICA Magnesium Hydroxide (Milk Of Magnesia 30 Ml Oral.Susp) 30 ml PO DAILY PRN PRN Reason: Constipation Melatonin (Melatonin 3 Mg Tablet) 6 mg PO BEDTIME PRN PRN Reason: Insomnia Last Admin: 04/29/24 19:24 Dose: 6 mg Documented By: ADAMARIS Miconazole Nitrate (Miconazole Nitrate 2% Powder 85 Gm Bottle) 1 appl TOPICAL BID [facility]; Protocol Last Admin: 05/05/24 08:13 Dose: 1 appl Documented By: LATRICIA Nicotine Polacrilex (Nicotine Polacrilex 2 Mg Gum) 4 mg BUCCAL Q2H PRN PRN Reason: Nicotine Cravings Ondansetron HCl (Ondansetron Hcl 4 Mg/2 Ml Vial) 4 mg IVPUSH Q8H PRN PRN Reason: Nausea and Vomiting Last Admin: 03/02/24 18:44 Dose: 4 mg Documented By: SEN Ondansetron HCl (Ondansetron Odt 4 Mg Tab.Rapdis) 4 mg TRANSLINGU Q6H PRN PRN Reason: Nausea and Vomiting Last Admin: 04/08/24 19:57 Dose: 4 mg Documented By: JENSEN Quetiapine Fumarate (Quetiapine Fumarate 25 Mg Tablet) 25 mg PO ONCE PRN PRN Reason: about 45 min before eeg Last Admin: 02/17/24 09:40 Dose: 25 mg Documented By: SHLOMO Risperidone (Risperidone Oral Peg 1 Mg/Ml Solution) 0.5 mg PO BID [facility] Last Admin: 05/05/24 08:13 Dose: 0.5 mg Documented By: LATRICIA Trazodone HCl (Trazodone Hcl 25 Mg Halftab) 25 mg PO BEDTIME PRN PRN Reason: Insomnia Last Admin: 04/29/24 19:24 Dose: 25 mg Documented By: ADAMARIS Labs 04/23/24 05:41 04/23/24 05:42 Assessment and Plan (1) Cognitive and behavioral changes: Status: Acute Plan 83M PMH htn, unspecified dementia, admitted to [facility] 02/13/24 for FTT, not taking meds or food, transfered to medicine 02/14/24. 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 EEG showing general slowing but no seizure disorder DRIVE AWAY DRIVER appreciated, NDD3 solids, thin liquids bilateral conjunctivitis completed treatment Hypertension Transdermal clonidine Amlodipine Mood disorder Risperidone, trazodone DVT prophylaxis with Lovenox Full Code reason for continued hospitalization: Safe dispo The patient HCP is his step-daughter Alcides can be reached on [phone] Patient sister name is Dr. Nate Genao and her phone number is [phone] to be contacted for any updates. Quality Stroke Does the patient have a stroke diagnosis?: No VTE Prior VTE?: No VTE Risk Level:: Medical - moderate - high VTE Device Contraindication: Treatment Not Indicated VTE Drug Contraindication: N/A - Med Ordered
[2024-05-05] MEDS: Enoxaparin Sodium 40 MG/0.4 ML SYRINGE SUBCUT (15:48)
[2024-05-05 15:58] VITALS: BP 148/80; PULSE 94; RESP 12; TEMP 36.4; O2SAT 94
[2024-05-05 19:18] VITALS: BP 137/76; PULSE 78; RESP 18; TEMP 36.4; O2SAT 95
[2024-05-06 04:00] VITALS: BP 145/72; PULSE 74; RESP 18; TEMP 36.3; O2SAT 95
[2024-05-06 08:00] VITALS: BP 129/59; PULSE 54; RESP 12; TEMP 36.1; O2SAT 93
[2024-05-06] MEDS: risperiDONE Oral Sol 1 MG/ML SOLUTION 0.5 MG PO ×2 (08:37→19:56)
[2024-05-06] MEDS: Miconazole Nitrate 2% Powder 85 GM Bottle 1 APPL TOPICAL (08:37)
--- NOTE | 2024-05-06 11:00 | P.PNIM_ITS ---
Subjective Subjective Date of Service: 05/06/24 Interval History: no complaints Physical Exam 2 Vital Signs: Vital Signs: Last Vital Signs Temp 96.9 F 05/06/24 08:00 Pulse 54 05/06/24 08:00 Resp 12 05/06/24 08:00 BP 129/59 L 05/06/24 08:00 Pulse Ox 93 05/06/24 08:00 O2 Del Method Room Air 05/06/24 08:00 O2 Flow Rate 2 03/28/24 07:24 BMI result Body Mass Index 20.2 Const: Other: Constitutional : Awake, not in distress Neck : Normal inspection, Supple Cardiovascular : no JVP, no lower extremity edema Skin : Warm, Dry Neurological : Alert & disoriented to place and time, No focal deficit Objective Data Active Medications Acetaminophen (Acetaminophen 325 Mg Tablet) 650 mg PO Q6H PRN PRN Reason: Pain, Mild (Pain Scale 1-3), fever or headache Last Admin: 05/02/24 13:31 Dose: 650 mg Documented By: KALANI Al Hydroxide/Mg Hydroxide (Magnesium Hydrox/Alum Hydrox 30 Ml Oral.Susp) 30 ml PO Q6H PRN PRN Reason: Constipation Benzonatate (Benzonatate 100 Mg Capsule) 100 mg PO TID PRN PRN Reason: Cough Calcium Carbonate (Calcium Carbonate 750 Mg Tab.Chew) 750 mg PO Q4H PRN PRN Reason: Heartburn Clonidine (Clonidine 0.1 Mg Patch.Tdwk) 0.1 mg TRANSDERMA Tu@0900 [facility]; Protocol Last Admin: 05/05/24 08:10 Dose: 0.1 mg Documented By: LATRICIA Enoxaparin Sodium (Enoxaparin Sodium 40 Mg/0.4 Ml Syringe) 40 mg SUBCUT Q24H [facility] Last Admin: 05/05/24 15:48 Dose: 40 mg Documented By: LATRICIA Loperamide HCl (Loperamide Hcl 2 Mg Capsule) 2 mg PO Q4H PRN PRN Reason: Diarrhea Last Admin: 04/27/24 15:22 Dose: 2 mg Documented By: JESSICA Magnesium Hydroxide (Milk Of Magnesia 30 Ml Oral.Susp) 30 ml PO DAILY PRN PRN Reason: Constipation Melatonin (Melatonin 3 Mg Tablet) 6 mg PO BEDTIME PRN PRN Reason: Insomnia Last Admin: 04/29/24 19:24 Dose: 6 mg Documented By: ADAMARIS Miconazole Nitrate (Miconazole Nitrate 2% Powder 85 Gm Bottle) 1 appl TOPICAL BID [facility]; Protocol Last Admin: 05/06/24 08:37 Dose: 1 appl Documented By: ALONDRA Nicotine Polacrilex (Nicotine Polacrilex 2 Mg Gum) 4 mg BUCCAL Q2H PRN PRN Reason: Nicotine Cravings Ondansetron HCl (Ondansetron Hcl 4 Mg/2 Ml Vial) 4 mg IVPUSH Q8H PRN PRN Reason: Nausea and Vomiting Last Admin: 03/02/24 18:44 Dose: 4 mg Documented By: SEN Ondansetron HCl (Ondansetron Odt 4 Mg Tab.Rapdis) 4 mg TRANSLINGU Q6H PRN PRN Reason: Nausea and Vomiting Last Admin: 04/08/24 19:57 Dose: 4 mg Documented By: GERARDO-DILMA Quetiapine Fumarate (Quetiapine Fumarate 25 Mg Tablet) 25 mg PO ONCE PRN PRN Reason: about 45 min before eeg Last Admin: 02/17/24 09:40 Dose: 25 mg Documented By: SHLOMO Risperidone (Risperidone Oral Peg 1 Mg/Ml Solution) 0.5 mg PO BID [facility] Last Admin: 05/06/24 08:37 Dose: 0.5 mg Documented By: ALONDRA Trazodone HCl (Trazodone Hcl 25 Mg Halftab) 25 mg PO BEDTIME PRN PRN Reason: Insomnia Last Admin: 04/29/24 19:24 Dose: 25 mg Documented By: ADAMARIS Labs 04/23/24 05:41 04/23/24 05:42 Assessment and Plan (1) Cognitive and behavioral changes: Status: Acute Plan 83M PMH htn, unspecified dementia, admitted to [facility] 02/13/24 for FTT, not taking meds or food, transfered to medicine 02/14/24. 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 EEG showing general slowing but no seizure disorder diet and mentation improved, SOAKER HIDES appreciated, NDD3 solids, thin liquids bilateral conjunctivitis completed treatment Hypertension Transdermal clonidine Amlodipine Mood disorder Risperidone, trazodone DVT prophylaxis with Lovenox Full Code reason for continued hospitalization: Safe dispo The patient HCP is his step-daughter Alcides can be reached on [phone] Patient sister name is Dr. Nate Genao and her phone number is [phone] to be contacted for any updates. Quality Stroke Does the patient have a stroke diagnosis?: No VTE Prior VTE?: No VTE Risk Level:: Medical - moderate - high VTE Device Contraindication: Treatment Not Indicated VTE Drug Contraindication: N/A - Med Ordered
--- NOTE | 2024-05-06 14:39 | MHC.CM.PN ---
Patient requires LTC placement. Conservator is in place. [facility] in process. Conservator to notify C once [facility] application is complete. DP LTC SNF via BLS.
[2024-05-06 15:45] VITALS: BP 141/76; PULSE 81; RESP 18; TEMP 36.7; O2SAT 94
[2024-05-06] MEDS: Enoxaparin Sodium 40 MG/0.4 ML SYRINGE SUBCUT (17:24)
[2024-05-06 19:52] VITALS: BP 151/76; PULSE 106; RESP 18; TEMP 37; O2SAT 95
[2024-05-07 07:04] VITALS: BP 116/63; PULSE 72; RESP 16; TEMP 36.4; O2SAT 96
[2024-05-07] MEDS: risperiDONE Oral Sol 1 MG/ML SOLUTION 0.5 MG PO ×2 (08:04→20:33)
[2024-05-07] MEDS: Miconazole Nitrate 2% Powder 85 GM Bottle 1 APPL TOPICAL ×2 (08:05→20:34)
--- NOTE | 2024-05-07 09:05 | HO.PM.IMPN ---
Subjective Subjective Date of Service: 05/07/24 Interval History: no complaints Physical Exam Vital Signs: Vital Signs: Last Vital Signs Temp 97.5 F 05/07/24 07:04 Pulse 72 05/07/24 07:04 Resp 16 05/07/24 07:04 BP 116/63 05/07/24 07:04 Pulse Ox 96 05/07/24 07:04 O2 Del Method Room Air 05/07/24 07:04 O2 Flow Rate 2 03/28/24 07:24 BMI result Body Mass Index 20.2 Const: Other: Constitutional : Awake, not in distress Neck : Normal inspection, Supple Cardiovascular : no JVP, no lower extremity edema Skin : Warm, Dry Neurological : Alert & disoriented to place and time, No focal deficit Objective Data Active Medications Acetaminophen (Acetaminophen 325 Mg Tablet) 650 mg PO Q6H PRN PRN Reason: Pain, Mild (Pain Scale 1-3), fever or headache Last Admin: 05/02/24 13:31 Dose: 650 mg Al Hydroxide/Mg Hydroxide (Magnesium Hydrox/Alum Hydrox 30 Ml Oral.Susp) 30 ml PO Q6H PRN PRN Reason: Constipation Benzonatate (Benzonatate 100 Mg Capsule) 100 mg PO TID PRN PRN Reason: Cough Calcium Carbonate (Calcium Carbonate 750 Mg Tab.Chew) 750 mg PO Q4H PRN PRN Reason: Heartburn Clonidine (Clonidine 0.1 Mg Patch.Tdwk) 0.1 mg TRANSDERMA Tu@0900 [facility]; Protocol Last Admin: 05/05/24 08:10 Dose: 0.1 mg Documented By: LATRICIA Enoxaparin Sodium (Enoxaparin Sodium 40 Mg/0.4 Ml Syringe) 40 mg SUBCUT Q24H [facility] Last Admin: 05/06/24 17:24 Dose: 40 mg Documented By: ALONDRA Loperamide HCl (Loperamide Hcl 2 Mg Capsule) 2 mg PO Q4H PRN PRN Reason: Diarrhea Last Admin: 04/27/24 15:22 Dose: 2 mg Documented By: JESSICA Magnesium Hydroxide (Milk Of Magnesia 30 Ml Oral.Susp) 30 ml PO DAILY PRN PRN Reason: Constipation Melatonin (Melatonin 3 Mg Tablet) 6 mg PO BEDTIME PRN PRN Reason: Insomnia Last Admin: 04/29/24 19:24 Dose: 6 mg Miconazole Nitrate (Miconazole Nitrate 2% Powder 85 Gm Bottle) 1 appl TOPICAL BID [facility]; Protocol Last Admin: 05/07/24 08:05 Dose: 1 appl Documented By: LATRICIA Nicotine Polacrilex (Nicotine Polacrilex 2 Mg Gum) 4 mg BUCCAL Q2H PRN PRN Reason: Nicotine Cravings Ondansetron HCl (Ondansetron Hcl 4 Mg/2 Ml Vial) 4 mg IVPUSH Q8H PRN PRN Reason: Nausea and Vomiting Last Admin: 03/02/24 18:44 Dose: 4 mg Documented By: SEN Ondansetron HCl (Ondansetron Odt 4 Mg Tab.Rapdis) 4 mg TRANSLINGU Q6H PRN PRN Reason: Nausea and Vomiting Last Admin: 04/08/24 19:57 Dose: 4 mg Documented By: JENSEN Quetiapine Fumarate (Quetiapine Fumarate 25 Mg Tablet) 25 mg PO ONCE PRN PRN Reason: about 45 min before eeg Last Admin: 02/17/24 09:40 Dose: 25 mg Documented By: SHLOMO Risperidone (Risperidone Oral Peg 1 Mg/Ml Solution) 0.5 mg PO BID [facility] Last Admin: 05/07/24 08:04 Dose: 0.5 mg Documented By: LATRICIA Trazodone HCl (Trazodone Hcl 25 Mg Halftab) 25 mg PO BEDTIME PRN PRN Reason: Insomnia Last Admin: 04/29/24 19:24 Dose: 25 mg Labs 04/23/24 05:41 04/23/24 05:42 Assessment and Plan (1) Cognitive and behavioral changes: Status: Acute Plan 83M PMH htn, unspecified dementia, admitted to [facility] 02/13/24 for FTT, not taking meds or food, transfered to medicine 02/14/24. 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 EEG showing general slowing but no seizure disorder diet and mentation improved, ON AIR DIRECTOR appreciated, NDD3 solids, thin liquids bilateral conjunctivitis completed treatment Hypertension Transdermal clonidine Amlodipine Mood disorder Risperidone, trazodone DVT prophylaxis with Lovenox Full Code reason for continued hospitalization: Safe dispo The patient HCP is his step-daughter Alcides can be reached on [phone] Patient sister name is Dr. Nate Genao and her phone number is [phone] to be contacted for any updates. Quality Stroke Does the patient have a stroke diagnosis?: No VTE Prior VTE?: No VTE Risk Level:: Medical - moderate - high VTE Device Contraindication: Treatment Not Indicated VTE Drug Contraindication: N/A - Med Ordered
--- NOTE | 2024-05-07 15:43 | HO.WOUND ---
Wound Consult: Follow up 83yr old?male admitted to [facility] on 02/14/24 - See progress notes and H&P for detailed history.? Wound consult requested by direct care staff member while on S3 unit for scrotal wound.? Concern for MARSI to scrotum secondary to purewick. Arrival to bedside patient was agreeable to my assessment and photo documentation. He was noted to have a male incontinence wrap in place. The penis and scrotum were assessed. There was no s/s of MASD at this time however where the purewick was likely adherent to his scrotum there were intact pink blanchable pigmentation changes. Suspect these were related to removal of the purewick per conversation with direct care rn team leader. The areas appear to be intact at this time - skin prep was observed to be in use which is appropriate topical intervention. 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 If Purewick is needed in the future due to wraps no longer working recommend hair clipping and skin prep application prior to use of the male purewick. At this time no topical interventions needed. Re-consult wound care Nurse for wound deterioration or wound changes.
[2024-05-07 15:48] VITALS: BP 135/67; PULSE 76; RESP 16; TEMP 36.8; O2SAT 96
[2024-05-07] MEDS: Enoxaparin Sodium 40 MG/0.4 ML SYRINGE SUBCUT (15:54)
[2024-05-07 20:00] VITALS: BP 150/76; PULSE 82; RESP 18; TEMP 36.4; O2SAT 99
[2024-05-08 03:19] VITALS: BP 143/68; PULSE 66; RESP 18; TEMP 36.8; O2SAT 97
[2024-05-08] MEDS: risperiDONE Oral Sol 1 MG/ML SOLUTION 0.5 MG PO ×2 (07:59→20:10)
[2024-05-08] MEDS: Miconazole Nitrate 2% Powder 85 GM Bottle 1 APPL TOPICAL ×2 (07:59→20:10)
[2024-05-08 08:10] VITALS: BP 179/87; PULSE 58; RESP 12; TEMP 36.1; O2SAT 93
--- NOTE | 2024-05-08 09:10 | HO.PM.IMPN ---
Subjective Subjective Date of Service: 05/08/24 Interval History: no complaints Physical Exam Vital Signs: Vital Signs: Last Vital Signs Temp 96.9 F 05/08/24 08:10 Pulse 58 05/08/24 08:10 Resp 12 05/08/24 08:10 BP 179/87 H 05/08/24 08:10 Pulse Ox 93 05/08/24 08:10 O2 Del Method Room Air 05/08/24 08:10 O2 Flow Rate 2 03/28/24 07:24 BMI result Body Mass Index 20.2 Const: Other: Constitutional : Awake, not in distress Neck : Normal inspection, Supple Cardiovascular : no JVP, no lower extremity edema Skin : Warm, Dry Neurological : Alert & disoriented to place and time, No focal deficit Objective Data Active Medications Acetaminophen (Acetaminophen 325 Mg Tablet) 650 mg PO Q6H PRN PRN Reason: Pain, Mild (Pain Scale 1-3), fever or headache Last Admin: 05/02/24 13:31 Dose: 650 mg Al Hydroxide/Mg Hydroxide (Magnesium Hydrox/Alum Hydrox 30 Ml Oral.Susp) 30 ml PO Q6H PRN PRN Reason: Constipation Benzonatate (Benzonatate 100 Mg Capsule) 100 mg PO TID PRN PRN Reason: Cough Calcium Carbonate (Calcium Carbonate 750 Mg Tab.Chew) 750 mg PO Q4H PRN PRN Reason: Heartburn Clonidine (Clonidine 0.1 Mg Patch.Tdwk) 0.1 mg TRANSDERMA Tu@0900 [facility]; Protocol Last Admin: 05/05/24 08:10 Dose: 0.1 mg Documented By: LATRICIA Enoxaparin Sodium (Enoxaparin Sodium 40 Mg/0.4 Ml Syringe) 40 mg SUBCUT Q24H [facility] Last Admin: 05/07/24 15:54 Dose: 40 mg Documented By: LATRICIA Loperamide HCl (Loperamide Hcl 2 Mg Capsule) 2 mg PO Q4H PRN PRN Reason: Diarrhea Last Admin: 04/27/24 15:22 Dose: 2 mg Documented By: JESSICA Magnesium Hydroxide (Milk Of Magnesia 30 Ml Oral.Susp) 30 ml PO DAILY PRN PRN Reason: Constipation Melatonin (Melatonin 3 Mg Tablet) 6 mg PO BEDTIME PRN PRN Reason: Insomnia Last Admin: 04/29/24 19:24 Dose: 6 mg Miconazole Nitrate (Miconazole Nitrate 2% Powder 85 Gm Bottle) 1 appl TOPICAL BID [facility]; Protocol Last Admin: 05/08/24 07:59 Dose: 1 appl Documented By: LATRICIA Nicotine Polacrilex (Nicotine Polacrilex 2 Mg Gum) 4 mg BUCCAL Q2H PRN PRN Reason: Nicotine Cravings Ondansetron HCl (Ondansetron Hcl 4 Mg/2 Ml Vial) 4 mg IVPUSH Q8H PRN PRN Reason: Nausea and Vomiting Last Admin: 03/02/24 18:44 Dose: 4 mg Documented By: SEN Ondansetron HCl (Ondansetron Odt 4 Mg Tab.Rapdis) 4 mg TRANSLINGU Q6H PRN PRN Reason: Nausea and Vomiting Last Admin: 04/08/24 19:57 Dose: 4 mg Documented By: JENSEN Quetiapine Fumarate (Quetiapine Fumarate 25 Mg Tablet) 25 mg PO ONCE PRN PRN Reason: about 45 min before eeg Last Admin: 02/17/24 09:40 Dose: 25 mg Documented By: SHLOMO Risperidone (Risperidone Oral Peg 1 Mg/Ml Solution) 0.5 mg PO BID [facility] P[facility]LO Last Admin: 05/08/24 07:59 Dose: 0.5 mg Documented By: LATRICIA Trazodone HCl (Trazodone Hcl 25 Mg Halftab) 25 mg PO BEDTIME PRN PRN Reason: Insomnia Last Admin: 04/29/24 19:24 Dose: 25 mg Labs 04/23/24 05:41 04/23/24 05:42 Assessment and Plan (1) Cognitive and behavioral changes: Status: Acute Plan 83M PMH htn, unspecified dementia, [facility] 02[facility]13/24 for FTT, not taking meds or food, transfered to medicine 02/14/24. 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 EEG showing general slowing but no seizure disorder diet and mentation improved, FUNCTIONAL CONSULTANT appreciated, NDD3 solids, thin liquids bilateral conjunctivitis completed treatment Hypertension Transdermal clonidine Amlodipine Mood disorder Risperidone, trazodone DVT prophylaxis with Lovenox Full Code reason for continued hospitalization: Safe dispo The patient HCP is his step-daughter Alcides can be reached on [phone] Patient sister name is Dr. Nate Genao and her phone number is [phone] to be contacted for any updates. Quality Stroke Does the patient have a stroke diagnosis?: No VTE Prior VTE?: No VTE Risk Level:: Medical - moderate - high VTE Device Contraindication: Treatment Not Indicated VTE Drug Contraindication: N/A - Med Ordered
--- NOTE | 2024-05-08 10:20 | MHC.CLN ---
F/U DIET=REGULAR, CHOPPED WITH FORTIFIED ICE CREAM TID AND ENSURE TID. FORTIFIED ICE CREAM PROVIDES 870 KCALS, 27 G PROTEIN. ENSURE PROVIDES 1050 KCALS, 60 G PROTEIN. PO INTAKE VARIABLE, 25-100%, WITH MANY MEALS GREATER THAN 50%. ACCEPTS SUPPLEMENTS. ODETTE=13. SKIN WITH REDNESS TO BUTTOCKS AND BILATERAL HEELS. CONTINUE CURRENT DIET AND SUPPLEMENT. ENCOURAGE PO INTAKE ABLE. AWAITING LTC PLACEMENT. RD TO MONITOR WEEKLY,
--- NOTE | 2024-05-08 10:25 | MHC.CM.PN ---
PT AWAITING LTC PLACEMENT. CONSERVATOR NOW IN PLACE. CONSERVATOR WILL NOTIFY CM ONCE MH [facility]OEL IS COMPLETE.
[2024-05-08] MEDS: Enoxaparin Sodium 40 MG/0.4 ML SYRINGE SUBCUT (15:31)
[2024-05-08 15:35] VITALS: BP 134/68; PULSE 92; RESP 12; TEMP 37.2; O2SAT 96
[2024-05-08 23:34] VITALS: BP 138/64; PULSE 69; RESP 18; TEMP 36.1; O2SAT 95
[2024-05-09 07:10] VITALS: BP 154/73; PULSE 62; RESP 12; TEMP 35.9; O2SAT 98
[2024-05-09] MEDS: risperiDONE Oral Sol 1 MG/ML SOLUTION 0.5 MG PO ×2 (07:45→19:44)
[2024-05-09] MEDS: Miconazole Nitrate 2% Powder 85 GM Bottle 1 APPL TOPICAL ×2 (07:46→19:47)
--- NOTE | 2024-05-09 08:30 | HO.PM.IMPN ---
Subjective Subjective Date of Service: 05/09/24 Interval History: no complaints Physical Exam Vital Signs: Vital Signs: Last Vital Signs Temp 96.7 F L 05/09/24 07:10 Pulse 62 05/09/24 07:10 Resp 12 05/09/24 07:10 BP 154/73 H 05/09/24 07:10 Pulse Ox 98 05/09/24 07:10 O2 Del Method Room Air 05/09/24 07:10 O2 Flow Rate 2 03/28/24 07:24 BMI result Body Mass Index 20.2 Const: Other: Constitutional : Awake, not in distress Neck : Normal inspection, Supple Cardiovascular : no JVP, no lower extremity edema Skin : Warm, Dry Neurological : Alert & disoriented to place and time, No focal deficit Objective Data Active Medications Acetaminophen (Acetaminophen 325 Mg Tablet) 650 mg PO Q6H PRN PRN Reason: Pain, Mild (Pain Scale 1-3), fever or headache Last Admin: 05/02/24 13:31 Dose: 650 mg Al Hydroxide/Mg Hydroxide (Magnesium Hydrox/Alum Hydrox 30 Ml Oral.Susp) 30 ml PO Q6H PRN PRN Reason: Constipation Benzonatate (Benzonatate 100 Mg Capsule) 100 mg PO TID PRN PRN Reason: Cough Calcium Carbonate (Calcium Carbonate 750 Mg Tab.Chew) 750 mg PO Q4H PRN PRN Reason: Heartburn Clonidine (Clonidine 0.1 Mg Patch.Tdwk) 0.1 mg TRANSDERMA Tu@0900 [facility]; Protocol Last Admin: 05/05/24 08:10 Dose: 0.1 mg Documented By: LATRICIA Enoxaparin Sodium (Enoxaparin Sodium 40 Mg/0.4 Ml Syringe) 40 mg SUBCUT Q24H [facility] Last Admin: 05/08/24 15:31 Dose: 40 mg Documented By: SOLANGE Loperamide HCl (Loperamide Hcl 2 Mg Capsule) 2 mg PO Q4H PRN PRN Reason: Diarrhea Last Admin: 04/27/24 15:22 Dose: 2 mg Documented By: JESSICA Magnesium Hydroxide (Milk Of Magnesia 30 Ml Oral.Susp) 30 ml PO DAILY PRN PRN Reason: Constipation Melatonin (Melatonin 3 Mg Tablet) 6 mg PO BEDTIME PRN PRN Reason: Insomnia Last Admin: 04/29/24 19:24 Dose: 6 mg Miconazole Nitrate (Miconazole Nitrate 2% Powder 85 Gm Bottle) 1 appl TOPICAL BID [facility]; Protocol Last Admin: 05/09/24 07:46 Dose: 1 appl Documented By: ANTONIO Nicotine Polacrilex (Nicotine Polacrilex 2 Mg Gum) 4 mg BUCCAL Q2H PRN PRN Reason: Nicotine Cravings Ondansetron HCl (Ondansetron Hcl 4 Mg/2 Ml Vial) 4 mg IVPUSH Q8H PRN PRN Reason: Nausea and Vomiting Last Admin: 03/02/24 18:44 Dose: 4 mg Documented By: SEN Ondansetron HCl (Ondansetron Odt 4 Mg Tab.Rapdis) 4 mg TRANSLINGU Q6H PRN PRN Reason: Nausea and Vomiting Last Admin: 04/08/24 19:57 Dose: 4 mg Documented By: JENSEN Quetiapine Fumarate (Quetiapine Fumarate 25 Mg Tablet) 25 mg PO ONCE PRN PRN Reason: about 45 min before eeg Last Admin: 02/17/24 09:40 Dose: 25 mg Documented By: SHLOMO Risperidone (Risperidone Oral Peg 1 Mg/Ml Solution) 0.5 mg PO BID [facility] PABLO Last Admin: 05/09/24 07:45 Dose: 0.5 mg Documented By: ANTONIO Trazodone HCl (Trazodone Hcl 25 Mg Halftab) 25 mg PO BEDTIME PRN PRN Reason: Insomnia Last Admin: 04/29/24 19:24 Dose: 25 mg Labs 04/23/24 05:41 04/23/24 05:42 Assessment and Plan (1) Cognitive and behavioral changes: Status: Acute Plan 83M PMH htn, unspecified dementia, admitted to [facility] 02/13/24 for FTT, not taking meds or food, transfered to medicine 02/14/24. 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 EEG showing general slowing but no seizure disorder diet and mentation improved, FWS FACULTY ASSISTANT appreciated, NDD3 solids, thin liquids bilateral conjunctivitis completed treatment Hypertension Transdermal clonidine Amlodipine Mood disorder Risperidone, trazodone DVT prophylaxis with Lovenox Full Code reason for continued hospitalization: Safe dispo The patient HCP is his step-daughter Alcides can be reached on [phone] Patient sister name is Dr. Nate Genao and her phone number is [phone] to be contacted for any updates. Quality Stroke Does the patient have a stroke diagnosis?: No VTE Prior VTE?: No VTE Risk Level:: Medical - moderate - high VTE Device Contraindication: Treatment Not Indicated VTE Drug Contraindication: N/A - Med Ordered
[2024-05-09 15:05] VITALS: BP 140/82; PULSE 73; RESP 16; TEMP 36.4; O2SAT 97
[2024-05-09] MEDS: Enoxaparin Sodium 40 MG/0.4 ML SYRINGE SUBCUT (15:07)
[2024-05-09 23:29] VITALS: BP 147/80; PULSE 65; RESP 18; TEMP 36.2; O2SAT 99
[2024-05-10 07:22] VITALS: BP 140/72; PULSE 65; RESP 20; TEMP 36.2; O2SAT 98
[2024-05-10] MEDS: Miconazole Nitrate 2% Powder 85 GM Bottle 1 APPL TOPICAL ×2 (07:32→19:56)
[2024-05-10] MEDS: risperiDONE Oral Sol 1 MG/ML SOLUTION 0.5 MG PO ×2 (07:32→19:56)
--- NOTE | 2024-05-10 08:47 | P.PNIM_ITS ---
Subjective Subjective Date of Service: 05/10/24 Interval History: no complaints Physical Exam 2 Vital Signs: Vital Signs: Last Vital Signs Temp 97.2 F 05/10/24 07:22 Pulse 65 05/10/24 07:22 Resp 20 05/10/24 07:22 BP 140/72 H 05/10/24 07:22 Pulse Ox 98 05/10/24 07:22 O2 Del Method Room Air 05/10/24 07:22 O2 Flow Rate 2 03/28/24 07:24 BMI result Body Mass Index 20.2 Const: Other: Constitutional : Awake, not in distress Neck : Normal inspection, Supple Cardiovascular : no JVP, no lower extremity edema Skin : Warm, Dry Neurological : Alert & disoriented to place and time, No focal deficit Objective Data Active Medications Acetaminophen (Acetaminophen 325 Mg Tablet) 650 mg PO Q6H PRN PRN Reason: Pain, Mild (Pain Scale 1-3), fever or headache Last Admin: 05/02/24 13:31 Dose: 650 mg Al Hydroxide/Mg Hydroxide (Magnesium Hydrox/Alum Hydrox 30 Ml Oral.Susp) 30 ml PO Q6H PRN PRN Reason: Constipation Benzonatate (Benzonatate 100 Mg Capsule) 100 mg PO TID PRN PRN Reason: Cough Calcium Carbonate (Calcium Carbonate 750 Mg Tab.Chew) 750 mg PO Q4H PRN PRN Reason: Heartburn Clonidine (Clonidine 0.1 Mg Patch.Tdwk) 0.1 mg TRANSDERMA Tu@0900 [facility]; Protocol Last Admin: 05/05/24 08:10 Dose: 0.1 mg Documented By: LATRICIA Enoxaparin Sodium (Enoxaparin Sodium 40 Mg/0.4 Ml Syringe) 40 mg SUBCUT Q24H [facility] Last Admin: 05/09/24 15:07 Dose: 40 mg Documented By: ANTONIO Loperamide HCl (Loperamide Hcl 2 Mg Capsule) 2 mg PO Q4H PRN PRN Reason: Diarrhea Last Admin: 04/27/24 15:22 Dose: 2 mg Documented By: JESSICA Magnesium Hydroxide (Milk Of Magnesia 30 Ml Oral.Susp) 30 ml PO DAILY PRN PRN Reason: Constipation Melatonin (Melatonin 3 Mg Tablet) 6 mg PO BEDTIME PRN PRN Reason: Insomnia Last Admin: 04/29/24 19:24 Dose: 6 mg Miconazole Nitrate (Miconazole Nitrate 2% Powder 85 Gm Bottle) 1 appl TOPICAL BID [facility]; Protocol Last Admin: 05/10/24 07:32 Dose: 1 appl Documented By: ANTONIO Nicotine Polacrilex (Nicotine Polacrilex 2 Mg Gum) 4 mg BUCCAL Q2H PRN PRN Reason: Nicotine Cravings Ondansetron HCl (Ondansetron Hcl 4 Mg/2 Ml Vial) 4 mg IVPUSH Q8H PRN PRN Reason: Nausea and Vomiting Last Admin: 03/02/24 18:44 Dose: 4 mg Documented By: SEN Ondansetron HCl (Ondansetron Odt 4 Mg Tab.Rapdis) 4 mg TRANSLINGU Q6H PRN PRN Reason: Nausea and Vomiting Last Admin: 04/08/24 19:57 Dose: 4 mg Documented By: JENSEN Quetiapine Fumarate (Quetiapine Fumarate 25 Mg Tablet) 25 mg PO ONCE PRN PRN Reason: about 45 min before eeg Last Admin: 02/17/24 09:40 Dose: 25 mg Documented By: SHLOMO Risperidone (Risperidone Oral Peg 1 Mg/Ml Solution) 0.5 mg PO BID JUAN PABLO Last Admin: 05/10/24 07:32 Dose: 0.5 mg Documented By: ANTONIO Trazodone HCl (Trazodone Hcl 25 Mg Halftab) 25 mg PO BEDTIME PRN PRN Reason: Insomnia Last Admin: 04/29/24 19:24 Dose: 25 mg Labs 04/23/24 05:41 04/23/24 05:42 Assessment and Plan (1) Cognitive and behavioral changes: Status: Acute Plan 83M PMH htn, unspecified dementia, admitted to [facility] 02/13/24 for FTT, not taking meds or food, transfered to medicine 02/14/24. 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 EEG showing general slowing but no seizure disorder diet and mentation improved, TAP AND DIE MAKER TECHNICIAN appreciated, NDD3 solids, thin liquids bilateral conjunctivitis completed treatment Hypertension Transdermal clonidine Amlodipine Mood disorder Risperidone, trazodone DVT prophylaxis with Lovenox Full Code reason for continued hospitalization: Safe dispo The patient HCP is his step-daughter Alcides can be reached on [phone] Patient sister name is Dr. Nate Genao and her phone number is [phone] to be contacted for any updates. Quality Stroke Does the patient have a stroke diagnosis?: No VTE Prior VTE?: No VTE Risk Level:: Medical - moderate - high VTE Device Contraindication: Treatment Not Indicated VTE Drug Contraindication: N/A - Med Ordered
[2024-05-10 15:05] VITALS: BP 148/84; PULSE 87; RESP 18; TEMP 36.3; O2SAT 92
[2024-05-10] MEDS: Enoxaparin Sodium 40 MG/0.4 ML SYRINGE SUBCUT (15:17)
[2024-05-10 23:32] VITALS: BP 176/79; PULSE 82; RESP 16; TEMP 36; O2SAT 96
[2024-05-11 03:28] VITALS: BP 152/79; PULSE 64; RESP 16; TEMP 36.2; O2SAT 96
[2024-05-11 07:30] VITALS: BP 149/76; PULSE 60; RESP 14; TEMP 36.1; O2SAT 98
[2024-05-11] MEDS: Miconazole Nitrate 2% Powder 85 GM Bottle 1 APPL TOPICAL ×2 (08:38→20:27)
[2024-05-11] MEDS: risperiDONE Oral Sol 1 MG/ML SOLUTION 0.5 MG PO ×2 (08:39→20:26)
--- NOTE | 2024-05-11 09:15 | P.PNIM_ITS ---
Subjective Subjective Date of Service: 05/11/24 Interval History: no complaints Physical Exam 2 Vital Signs: Vital Signs: Last Vital Signs Temp 97 F 05/11/24 07:30 Pulse 60 05/11/24 07:30 Resp 14 05/11/24 07:30 BP 149/76 H 05/11/24 07:30 Pulse Ox 98 05/11/24 07:30 O2 Del Method Room Air 05/11/24 07:30 O2 Flow Rate 2 03/28/24 07:24 BMI result Body Mass Index 20.2 Const: Other: Constitutional : Awake, not in distress Neck : Normal inspection, Supple Cardiovascular : no JVP, no lower extremity edema Skin : Warm, Dry Neurological : Alert & disoriented to place and time, No focal deficit Objective Data Active Medications Acetaminophen (Acetaminophen 325 Mg Tablet) 650 mg PO Q6H PRN PRN Reason: Pain, Mild (Pain Scale 1-3), fever or headache Last Admin: 05/02/24 13:31 Dose: 650 mg Al Hydroxide/Mg Hydroxide (Magnesium Hydrox/Alum Hydrox 30 Ml Oral.Susp) 30 ml PO Q6H PRN PRN Reason: Constipation Benzonatate (Benzonatate 100 Mg Capsule) 100 mg PO TID PRN PRN Reason: Cough Calcium Carbonate (Calcium Carbonate 750 Mg Tab.Chew) 750 mg PO Q4H PRN PRN Reason: Heartburn Clonidine (Clonidine 0.1 Mg Patch.Tdwk) 0.1 mg TRANSDERMA Tu@0900 [facility]; Protocol Last Admin: 05/05/24 08:10 Dose: 0.1 mg Documented By: LATRICIA Enoxaparin Sodium (Enoxaparin Sodium 40 Mg/0.4 Ml Syringe) 40 mg SUBCUT Q24H [facility] Last Admin: 05/10/24 15:17 Dose: 40 mg Documented By: ANTONIO Loperamide HCl (Loperamide Hcl 2 Mg Capsule) 2 mg PO Q4H PRN PRN Reason: Diarrhea Last Admin: 04/27/24 15:22 Dose: 2 mg Documented By: JESSICA Magnesium Hydroxide (Milk Of Magnesia 30 Ml Oral.Susp) 30 ml PO DAILY PRN PRN Reason: Constipation Melatonin (Melatonin 3 Mg Tablet) 6 mg PO BEDTIME PRN PRN Reason: Insomnia Last Admin: 04/29/24 19:24 Dose: 6 mg Miconazole Nitrate (Miconazole Nitrate 2% Powder 85 Gm Bottle) 1 appl TOPICAL BID [facility]; Protocol Last Admin: 05/11/24 08:38 Dose: 1 appl Documented By: CELINE Nicotine Polacrilex (Nicotine Polacrilex 2 Mg Gum) 4 mg BUCCAL Q2H PRN PRN Reason: Nicotine Cravings Ondansetron HCl (Ondansetron Hcl 4 Mg/2 Ml Vial) 4 mg IVPUSH Q8H PRN PRN Reason: Nausea and Vomiting Last Admin: 03/02/24 18:44 Dose: 4 mg Documented By: SEN Ondansetron HCl (Ondansetron Odt 4 Mg Tab.Rapdis) 4 mg TRANSLINGU Q6H PRN PRN Reason: Nausea and Vomiting Last Admin: 04/08/24 19:57 Dose: 4 mg Documented By: JENSEN Quetiapine Fumarate (Quetiapine Fumarate 25 Mg Tablet) 25 mg PO ONCE PRN PRN Reason: about 45 min before eeg Last Admin: 02/17/24 09:40 Dose: 25 mg Documented By: SHLOMO Risperidone (Risperidone Oral Peg 1 Mg/Ml Solution) 0.5 mg PO BID JUAN PABLO Last Admin: 05/11/24 08:39 Dose: 0.5 mg Documented By: CELINE Trazodone HCl (Trazodone Hcl 25 Mg Halftab) 25 mg PO BEDTIME PRN PRN Reason: Insomnia Last Admin: 04/29/24 19:24 Dose: 25 mg Labs 04/23/24 05:41 04/23/24 05:42 Assessment and Plan (1) Cognitive and behavioral changes: Status: Acute Plan 83M PMH htn, unspecified dementia, admitted to [facility] 02/13/24 for FTT, not taking meds or food, transfered to medicine 02/14/24. 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 EEG showing general slowing but no seizure disorder diet and mentation improved, ENTERPRISE ANALYST appreciated, NDD3 solids, thin liquids bilateral conjunctivitis completed treatment Hypertension Transdermal clonidine Amlodipine Mood disorder Risperidone, trazodone DVT prophylaxis with Lovenox Full Code reason for continued hospitalization: Safe dispo The patient HCP is his step-daughter Alcides can be reached on [phone] Patient sister name is Dr. Nate Genao and her phone number is [phone] to be contacted for any updates. Quality Stroke Does the patient have a stroke diagnosis?: No VTE Prior VTE?: No VTE Risk Level:: Medical - moderate - high VTE Device Contraindication: Treatment Not Indicated VTE Drug Contraindication: N/A - Med Ordered
[2024-05-11 13:00] VITALS: BMI 20.1
--- NOTE | 2024-05-11 13:36 | MHC.CM.PN ---
DP LTC via BLS. Conservator in place. Waiting to hear from conservator regarding [facility] application status. The plan is to refer once the application is complete.
[2024-05-11] MEDS: Enoxaparin Sodium 40 MG/0.4 ML SYRINGE SUBCUT (15:41)
[2024-05-11 15:43] VITALS: BP 161/87; PULSE 97; RESP 16; TEMP 36.3; O2SAT 95
[2024-05-11 23:25] VITALS: BP 140/75; PULSE 70; RESP 16; TEMP 36; O2SAT 94
[2024-05-12 07:37] VITALS: BP 134/80; PULSE 68; RESP 16; TEMP 36.3; O2SAT 97
[2024-05-12] MEDS: cloNIDine 0.1 MG PATCH.TDWK TRANSDERMA (08:12)
[2024-05-12] MEDS: risperiDONE Oral Sol 1 MG/ML SOLUTION 0.5 MG PO ×2 (08:12→20:13)
[2024-05-12] MEDS: Miconazole Nitrate 2% Powder 85 GM Bottle 1 APPL TOPICAL ×2 (08:13→20:13)
--- NOTE | 2024-05-12 09:02 | HO.PM.IMPN ---
Subjective Subjective Date of Service: 05/12/24 Interval History: no complaints Physical Exam Vital Signs: Vital Signs: Last Vital Signs Temp 97.3 F 05/12/24 07:37 Pulse 68 05/12/24 07:37 Resp 16 05/12/24 07:37 BP 134/80 05/12/24 07:37 Pulse Ox 97 05/12/24 07:37 O2 Del Method Room Air 05/12/24 07:37 O2 Flow Rate 2 03/28/24 07:24 BMI result Body Mass Index 20.1 Const: Other: Constitutional : Awake, not in distress Neck : Normal inspection, Supple Cardiovascular : no JVP, no lower extremity edema Skin : Warm, Dry Neurological : Alert & disoriented to place and time, No focal deficit Objective Data Active Medications Acetaminophen (Acetaminophen 325 Mg Tablet) 650 mg PO Q6H PRN PRN Reason: Pain, Mild (Pain Scale 1-3), fever or headache Last Admin: 05/02/24 13:31 Dose: 650 mg Al Hydroxide/Mg Hydroxide (Magnesium Hydrox/Alum Hydrox 30 Ml Oral.Susp) 30 ml PO Q6H PRN PRN Reason: Constipation Benzonatate (Benzonatate 100 Mg Capsule) 100 mg PO TID PRN PRN Reason: Cough Calcium Carbonate (Calcium Carbonate 750 Mg Tab.Chew) 750 mg PO Q4H PRN PRN Reason: Heartburn Clonidine (Clonidine 0.1 Mg Patch.Tdwk) 0.1 mg TRANSDERMA Tu@0900 [facility]; Protocol Last Admin: 05/12/24 08:12 Dose: 0.1 mg Documented By: LATRICIA Enoxaparin Sodium (Enoxaparin Sodium 40 Mg/0.4 Ml Syringe) 40 mg SUBCUT Q24H [facility] Last Admin: 05/11/24 15:41 Dose: 40 mg Documented By: CELINE Loperamide HCl (Loperamide Hcl 2 Mg Capsule) 2 mg PO Q4H PRN PRN Reason: Diarrhea Last Admin: 04/27/24 15:22 Dose: 2 mg Documented By: JESSICA Magnesium Hydroxide (Milk Of Magnesia 30 Ml Oral.Susp) 30 ml PO DAILY PRN PRN Reason: Constipation Melatonin (Melatonin 3 Mg Tablet) 6 mg PO BEDTIME PRN PRN Reason: Insomnia Last Admin: 04/29/24 19:24 Dose: 6 mg Miconazole Nitrate (Miconazole Nitrate 2% Powder 85 Gm Bottle) 1 appl TOPICAL BID [facility]; Protocol Last Admin: 05/12/24 08:13 Dose: 1 appl Documented By: LATRICIA Nicotine Polacrilex (Nicotine Polacrilex 2 Mg Gum) 4 mg BUCCAL Q2H PRN PRN Reason: Nicotine Cravings Ondansetron HCl (Ondansetron Hcl 4 Mg/2 Ml Vial) 4 mg IVPUSH Q8H PRN PRN Reason: Nausea and Vomiting Last Admin: 03/02/24 18:44 Dose: 4 mg Documented By: SEN Ondansetron HCl (Ondansetron Odt 4 Mg Tab.Rapdis) 4 mg TRANSLINGU Q6H PRN PRN Reason: Nausea and Vomiting Last Admin: 04/08/24 19:57 Dose: 4 mg Documented By: JENSEN Quetiapine Fumarate (Quetiapine Fumarate 25 Mg Tablet) 25 mg PO ONCE PRN PRN Reason: about 45 min before eeg Last Admin: 02/17/24 09:40 Dose: 25 mg Documented By: SHLOMO Risperidone (Risperidone Oral Peg 1 Mg/Ml Solution) 0.5 mg PO BID [facility] PABLO Last Admin: 05/12/24 08:12 Dose: 0.5 mg Documented By: LATRICIA Trazodone HCl (Trazodone Hcl 25 Mg Halftab) 25 mg PO BEDTIME PRN PRN Reason: Insomnia Last Admin: 04/29/24 19:24 Dose: 25 mg Labs 04/23/24 05:41 04/23/24 05:42 Assessment and Plan (1) Cognitive and behavioral changes: Status: Acute Plan 83M PMH htn, unspecified dementia, admitted to [facility] 02/13/24 for FTT, not taking meds or food, transfered to medicine 02/14/24. 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 EEG showing general slowing but no seizure disorder diet and mentation improved, SOLAR BUSINESS DEVELOPER appreciated, NDD3 solids, thin liquids bilateral conjunctivitis completed treatment Hypertension Transdermal clonidine Amlodipine Mood disorder Risperidone, trazodone DVT prophylaxis with Lovenox Full Code reason for continued hospitalization: Safe dispo The patient HCP is his step-daughter Alcides can be reached on [phone] Patient sister name is Dr. Nate Genao and her phone number is [phone] to be contacted for any updates. Quality Stroke Does the patient have a stroke diagnosis?: No VTE Prior VTE?: No VTE Risk Level:: Medical - moderate - high VTE Device Contraindication: Treatment Not Indicated VTE Drug Contraindication: N/A - Med Ordered
--- NOTE | 2024-05-12 12:35 | MHC.CM.PN ---
CM CALLED [employer] AT [phone] TO INQUIRE ON STATUS OF MH APPLICATION. MESSAGE LEFT FOR GIGI /REQUEST TO RETURN CALL. CM CONTINUES TO FOLLOW.
[2024-05-12 15:33] VITALS: BP 158/82; PULSE 84; RESP 20; TEMP 36.4; O2SAT 96
[2024-05-12] MEDS: Enoxaparin Sodium 40 MG/0.4 ML SYRINGE SUBCUT (16:24)
[2024-05-12 23:28] VITALS: BP 134/72; PULSE 89; RESP 16; TEMP 36.3; O2SAT 98
[2024-05-13 07:45] VITALS: BP 135/64; PULSE 68; RESP 16; TEMP 36.6; O2SAT 100
[2024-05-13] MEDS: Miconazole Nitrate 2% Powder 85 GM Bottle 1 APPL TOPICAL ×2 (08:54→20:44)
[2024-05-13] MEDS: risperiDONE Oral Sol 1 MG/ML SOLUTION 0.5 MG PO ×2 (08:54→20:44)
--- NOTE | 2024-05-13 10:30 | P.PNIM_ITS ---
Subjective Subjective Date of Service: 05/13/24 Interval History: no complaints Physical Exam 2 Vital Signs: Vital Signs: Last Vital Signs Temp 97.8 F 05/13/24 07:45 Pulse 68 05/13/24 07:45 Resp 16 05/13/24 07:45 BP 135/64 05/13/24 07:45 Pulse Ox 100 05/13/24 07:45 O2 Del Method Room Air 05/13/24 07:45 O2 Flow Rate 2 03/28/24 07:24 BMI result Body Mass Index 20.1 Const: Other: Constitutional : Awake, not in distress Neck : Normal inspection, Supple Cardiovascular : no JVP, no lower extremity edema Skin : Warm, Dry Neurological : Alert & disoriented to place and time, No focal deficit Objective Data Active Medications Acetaminophen (Acetaminophen 325 Mg Tablet) 650 mg PO Q6H PRN PRN Reason: Pain, Mild (Pain Scale 1-3), fever or headache Last Admin: 05/02/24 13:31 Dose: 650 mg Al Hydroxide/Mg Hydroxide (Magnesium Hydrox/Alum Hydrox 30 Ml Oral.Susp) 30 ml PO Q6H PRN PRN Reason: Constipation Benzonatate (Benzonatate 100 Mg Capsule) 100 mg PO TID PRN PRN Reason: Cough Calcium Carbonate (Calcium Carbonate 750 Mg Tab.Chew) 750 mg PO Q4H PRN PRN Reason: Heartburn Clonidine (Clonidine 0.1 Mg Patch.Tdwk) 0.1 mg TRANSDERMA Tu@0900 [facility]; Protocol Last Admin: 05/12/24 08:12 Dose: 0.1 mg Documented By: LATRICIA Enoxaparin Sodium (Enoxaparin Sodium 40 Mg/0.4 Ml Syringe) 40 mg SUBCUT Q24H [facility] Last Admin: 05/12/24 16:24 Dose: 40 mg Documented By: LATRICIA Loperamide HCl (Loperamide Hcl 2 Mg Capsule) 2 mg PO Q4H PRN PRN Reason: Diarrhea Last Admin: 04/27/24 15:22 Dose: 2 mg Documented By: JESSICA Magnesium Hydroxide (Milk Of Magnesia 30 Ml Oral.Susp) 30 ml PO DAILY PRN PRN Reason: Constipation Melatonin (Melatonin 3 Mg Tablet) 6 mg PO BEDTIME PRN PRN Reason: Insomnia Last Admin: 04/29/24 19:24 Dose: 6 mg Miconazole Nitrate (Miconazole Nitrate 2% Powder 85 Gm Bottle) 1 appl TOPICAL BID [facility]; Protocol Last Admin: 05/13/24 08:54 Dose: 1 appl Documented By: SOLANGE Nicotine Polacrilex (Nicotine Polacrilex 2 Mg Gum) 4 mg BUCCAL Q2H PRN PRN Reason: Nicotine Cravings Ondansetron HCl (Ondansetron Hcl 4 Mg/2 Ml Vial) 4 mg IVPUSH Q8H PRN PRN Reason: Nausea and Vomiting Last Admin: 03/02/24 18:44 Dose: 4 mg Documented By: SEN Ondansetron HCl (Ondansetron Odt 4 Mg Tab.Rapdis) 4 mg TRANSLINGU Q6H PRN PRN Reason: Nausea and Vomiting Last Admin: 04/08/24 19:57 Dose: 4 mg Documented By: JENSEN Quetiapine Fumarate (Quetiapine Fumarate 25 Mg Tablet) 25 mg PO ONCE PRN PRN Reason: about 45 min before eeg Last Admin: 02/17/24 09:40 Dose: 25 mg Documented By: SHLOMO Risperidone (Risperidone Oral Peg 1 Mg/Ml Solution) 0.5 mg PO BID [facility] Last Admin: 05/13/24 08:54 Dose: 0.5 mg Documented By: SOLANGE Trazodone HCl (Trazodone Hcl 25 Mg Halftab) 25 mg PO BEDTIME PRN PRN Reason: Insomnia Last Admin: 04/29/24 19:24 Dose: 25 mg Labs 04/23/24 05:41 04/23/24 05:42 Assessment and Plan (1) Cognitive and behavioral changes: Status: Acute Plan 83M PMH htn, unspecified dementia, admitted to [facility] 02/13/24 for FTT, not taking meds or food, transfered to medicine 02/14/24. 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 EEG showing general slowing but no seizure disorder diet and mentation improved, DOUGH SHEETER appreciated, NDD3 solids, thin liquids bilateral conjunctivitis completed treatment Hypertension Transdermal clonidine Amlodipine Mood disorder Risperidone, trazodone DVT prophylaxis with Lovenox Full Code reason for continued hospitalization: Safe dispo The patient HCP is his step-daughter Alcides can be reached on [phone] Patient sister name is Dr. Nate Genao and her phone number is [phone] to be contacted for any updates. Quality Stroke Does the patient have a stroke diagnosis?: No VTE Prior VTE?: No VTE Risk Level:: Medical - moderate - high VTE Device Contraindication: Treatment Not Indicated VTE Drug Contraindication: N/A - Med Ordered
[2024-05-13 15:01] VITALS: BP 138/76; PULSE 105; RESP 16; TEMP 36.4; O2SAT 94
[2024-05-13] MEDS: Enoxaparin Sodium 40 MG/0.4 ML SYRINGE SUBCUT (16:54)
[2024-05-13 23:36] VITALS: BP 130/65; PULSE 82; RESP 16; TEMP 36.4; O2SAT 98
[2024-05-14 07:39] VITALS: BP 136/65; PULSE 62; RESP 16; TEMP 36; O2SAT 100
[2024-05-14] MEDS: Miconazole Nitrate 2% Powder 85 GM Bottle 1 APPL TOPICAL ×2 (10:28→20:15)
--- NOTE | 2024-05-14 12:50 | HO.PM.IMPN ---
Subjective Subjective Date of Service: 05/14/24 Interval History: appear more lethargic today Physical Exam Vital Signs: Vital Signs: Last Vital Signs Temp 96.8 F 05/14/24 07:39 Pulse 62 05/14/24 07:39 Resp 16 05/14/24 07:39 BP 136/65 05/14/24 07:39 Pulse Ox 100 05/14/24 07:39 O2 Del Method Room Air 05/14/24 07:39 O2 Flow Rate 2 03/28/24 07:24 BMI result Body Mass Index 20.1 Const: Other: Constitutional : Awake but more lethargic Neck : Normal inspection, Supple Cardiovascular : no JVP, no lower extremity edema Skin : Warm, Dry Neurological : Alert & disoriented to place and time, No focal deficit Objective Data Active Medications Acetaminophen (Acetaminophen 325 Mg Tablet) 650 mg PO Q6H PRN PRN Reason: Pain, Mild (Pain Scale 1-3), fever or headache Last Admin: 05/02/24 13:31 Dose: 650 mg Al Hydroxide/Mg Hydroxide (Magnesium Hydrox/Alum Hydrox 30 Ml Oral.Susp) 30 ml PO Q6H PRN PRN Reason: Constipation Benzonatate (Benzonatate 100 Mg Capsule) 100 mg PO TID PRN PRN Reason: Cough Calcium Carbonate (Calcium Carbonate 750 Mg Tab.Chew) 750 mg PO Q4H PRN PRN Reason: Heartburn Clonidine (Clonidine 0.1 Mg Patch.Tdwk) 0.1 mg TRANSDERMA Tu@0900 [facility]; Protocol Last Admin: 05/12/24 08:12 Dose: 0.1 mg Documented By: LATRICIA Enoxaparin Sodium (Enoxaparin Sodium 40 Mg/0.4 Ml Syringe) 40 mg SUBCUT Q24H [facility] Last Admin: 05/13/24 16:54 Dose: 40 mg Documented By: SOLANGE Loperamide HCl (Loperamide Hcl 2 Mg Capsule) 2 mg PO Q4H PRN PRN Reason: Diarrhea Last Admin: 04/27/24 15:22 Dose: 2 mg Documented By: JESSICA Magnesium Hydroxide (Milk Of Magnesia 30 Ml Oral.Susp) 30 ml PO DAILY PRN PRN Reason: Constipation Melatonin (Melatonin 3 Mg Tablet) 6 mg PO BEDTIME PRN PRN Reason: Insomnia Last Admin: 01/08/25 19:24 Dose: 6 mg Miconazole Nitrate (Miconazole Nitrate 2% Powder 85 Gm Bottle) 1 appl TOPICAL BID [facility]; Protocol Last Admin: 05/14/24 10:28 Dose: 1 appl Documented By: WILMA Nicotine Polacrilex (Nicotine Polacrilex 2 Mg Gum) 4 mg BUCCAL Q2H PRN PRN Reason: Nicotine Cravings Ondansetron HCl (Ondansetron Hcl 4 Mg/2 Ml Vial) 4 mg IVPUSH Q8H PRN PRN Reason: Nausea and Vomiting Last Admin: 03/02/24 18:44 Dose: 4 mg Documented By: SEN Ondansetron HCl (Ondansetron Odt 4 Mg Tab.Rapdis) 4 mg TRANSLINGU Q6H PRN PRN Reason: Nausea and Vomiting Last Admin: 04/08/24 19:57 Dose: 4 mg Documented By: JENSEN Quetiapine Fumarate (Quetiapine Fumarate 25 Mg Tablet) 25 mg PO ONCE PRN PRN Reason: about 45 min before eeg Last Admin: 02/17/24 09:40 Dose: 25 mg Documented By: SHLOMO Risperidone (Risperidone Oral Peg 1 Mg/Ml Solution) 0.5 mg PO BID [facility] Last Admin: 05/14/24 10:14 Dose: Not Given Documented By: WILMA Non-Admin Reason: Physician Held Med Trazodone HCl (Trazodone Hcl 25 Mg Halftab) 25 mg PO BEDTIME PRN PRN Reason: Insomnia Last Admin: 04/29/24 19:24 Dose: 25 mg Labs 04/23/24 05:41 04/23/24 05:42 Assessment and Plan (1) Cognitive and behavioral changes: Status: Acute Plan 83M PMH htn, unspecified dementia, admitted to [facility] 02/13/24 for FTT, not taking meds or food, transfered to medicine 02/14/24. 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 EEG showing general slowing but no seizure disorder diet and mentation improved, INTERNAL CONSULTANT appreciated, NDD3 solids, thin liquids More lethargic today: check labs (cbc, tsh, lfts, bmp, mag, phos) bilateral conjunctivitis completed treatment Hypertension Transdermal clonidine Amlodipine Mood disorder Risperidone, trazodone DVT prophylaxis with Lovenox Full Code reason for continued hospitalization: Safe dispo The patient HCP is his step-daughter Alcides can be reached on [phone] Patient sister name is Dr. Nate Genao and her phone number is [phone] to be contacted for any updates. Quality Stroke Does the patient have a stroke diagnosis?: No VTE Prior VTE?: No VTE Risk Level:: Medical - moderate - high VTE Device Contraindication: Treatment Not Indicated VTE Drug Contraindication: N/A - Med Ordered
[2024-05-14 13:12] LABS: Hematocrit 42.3 % (42.0-52.0); Hemoglobin 14.6 g/dl (14.0-18.0); Mean Corpuscular HGB Conc 34.5 g/dl (31.0-36.0); Mean Corpuscular Hemoglobin 31.9 pg (27.0-33.0); Mean Corpuscular Volume 92.4 fL (80.0-98.0); Platelet Count 216 X10*3/uL (160-400); Red Blood Count 4.58 X10*6/uL (4.60-5.80); Red Cell Distribution Width 14.4 % (11.0-16.0)
[2024-05-14 13:37] LABS: Alanine Aminotransferase 28 U/L (0-40); Albumin Level 3.3 g/dL (3.5-5.0); Alkaline Phosphatase 82 U/L (39-117); Anion Gap 10 (12-20); Aspartate Amino Transferase 21 U/L (5-37); Bilirubin Direct 0.2 mg/dL (0.0-0.5); Bilirubin Total 0.6 mg/dL (0.0-1.0); Blood Urea Nitrogen 14 mg/dL (9-16); Calcium 9.1 mg/dL (8.4-10.2); Carbon Dioxide 21 mmol/L (22-29); Chloride 111 mmol/L (96-108); Creatinine Clr Calc Pharmacy 91.5; Estimated Glomerular Filt Rate > 60; Glucose Random 95 mg/dL (60-115); Magnesium 2.1 mg/dL (1.6-2.6); Sodium 138 mmol/L (135-145); Total Protein 6.1 g/dL (6.5-8.0)
--- NOTE | 2024-05-14 15:20 | MHC.CM.PN ---
CM LEFT MESSAGE FOR [facility] TO RETURN CALL REGARDING STATUS OF [facility]. PER REQUEST OF MEDICAID SPECIALIST AT [facility], [employer] SHEET FAXED TO [phone]
[2024-05-14 16:00] VITALS: PULSE 100; RESP 16; TEMP 37; O2SAT 96
[2024-05-14 16:40] VITALS: BP 162/84
[2024-05-14] MEDS: Enoxaparin Sodium 40 MG/0.4 ML SYRINGE SUBCUT (17:15)
[2024-05-14] MEDS: risperiDONE Oral Sol 1 MG/ML SOLUTION 0.5 MG PO (20:11)
[2024-05-14 23:37] VITALS: BP 144/82; PULSE 72; RESP 16; TEMP 36.1; O2SAT 96
[2024-05-15 08:00] VITALS: BP 142/76; PULSE 58; RESP 16; TEMP 36.3; O2SAT 99
[2024-05-15] MEDS: risperiDONE Oral Sol 1 MG/ML SOLUTION 0.5 MG PO ×2 (08:16→21:54)
[2024-05-15] MEDS: Miconazole Nitrate 2% Powder 85 GM Bottle 1 APPL TOPICAL ×2 (08:17→21:54)
--- NOTE | 2024-05-15 08:54 | P.PNIM_ITS ---
Subjective Subjective Date of Service: 05/15/24 Interval History: He is more awake and alert than yesterday, essentially at baseline now Physical Exam 2 Vital Signs: Vital Signs: Last Vital Signs Temp 97.4 F 05/15/24 08:00 Pulse 58 05/15/24 08:00 Resp 16 05/15/24 08:00 BP 142/76 H 05/15/24 08:00 Pulse Ox 99 05/15/24 08:00 O2 Del Method Room Air 05/15/24 08:00 O2 Flow Rate 2 03/28/24 07:24 BMI result Body Mass Index 20.1 Const: Other: Constitutional : Awake, alert Neck : Normal inspection, Supple Cardiovascular : no JVP, no lower extremity edema Skin : Warm, Dry Neurological : Alert & disoriented to place and time, No focal deficit Objective Data Active Medications Acetaminophen (Acetaminophen 325 Mg Tablet) 650 mg PO Q6H PRN PRN Reason: Pain, Mild (Pain Scale 1-3), fever or headache Last Admin: 05/02/24 13:31 Dose: 650 mg Al Hydroxide/Mg Hydroxide (Magnesium Hydrox/Alum Hydrox 30 Ml Oral.Susp) 30 ml PO Q6H PRN PRN Reason: Constipation Benzonatate (Benzonatate 100 Mg Capsule) 100 mg PO TID PRN PRN Reason: Cough Calcium Carbonate (Calcium Carbonate 750 Mg Tab.Chew) 750 mg PO Q4H PRN PRN Reason: Heartburn Clonidine (Clonidine 0.1 Mg Patch.Tdwk) 0.1 mg TRANSDERMA Tu@0900 [facility]; Protocol Last Admin: 05/12/24 08:12 Dose: 0.1 mg Documented By: LATRICIA Enoxaparin Sodium (Enoxaparin Sodium 40 Mg/0.4 Ml Syringe) 40 mg SUBCUT Q24H [facility] Last Admin: 05/14/24 17:15 Dose: 40 mg Documented By: WILMA Loperamide HCl (Loperamide Hcl 2 Mg Capsule) 2 mg PO Q4H PRN PRN Reason: Diarrhea Last Admin: 04/27/24 15:22 Dose: 2 mg Documented By: JESSICA Magnesium Hydroxide (Milk Of Magnesia 30 Ml Oral.Susp) 30 ml PO DAILY PRN PRN Reason: Constipation Melatonin (Melatonin 3 Mg Tablet) 6 mg PO BEDTIME PRN PRN Reason: Insomnia Last Admin: 04/29/24 19:24 Dose: 6 mg Miconazole Nitrate (Miconazole Nitrate 2% Powder 85 Gm Bottle) 1 appl TOPICAL BID [facility]; Protocol Last Admin: 05/15/24 08:17 Dose: 1 appl Documented By: SOL Nicotine Polacrilex (Nicotine Polacrilex 2 Mg Gum) 4 mg BUCCAL Q2H PRN PRN Reason: Nicotine Cravings Ondansetron HCl (Ondansetron Hcl 4 Mg/2 Ml Vial) 4 mg IVPUSH Q8H PRN PRN Reason: Nausea and Vomiting Last Admin: 03/02/24 18:44 Dose: 4 mg Documented By: SEN Ondansetron HCl (Ondansetron Odt 4 Mg Tab.Rapdis) 4 mg TRANSLINGU Q6H PRN PRN Reason: Nausea and Vomiting Last Admin: 04/08/24 19:57 Dose: 4 mg Documented By: JENSEN Quetiapine Fumarate (Quetiapine Fumarate 25 Mg Tablet) 25 mg PO ONCE PRN PRN Reason: about 45 min before eeg Last Admin: 02/17/24 09:40 Dose: 25 mg Documented By: SHLOMO Risperidone (Risperidone Oral Peg 1 Mg/Ml Solution) 0.5 mg PO BID [facility]LO Last Admin: 05/15/24 08:16 Dose: 0.5 mg Documented By: SOL Trazodone HCl (Trazodone Hcl 25 Mg Halftab) 25 mg PO BEDTIME PRN PRN Reason: Insomnia Last Admin: 04/29/24 19:24 Dose: 25 mg Labs 05/14/24 13:04 05/14/24 13:04 Labs: Laboratory Results - last 24 hr 05/14/24 13:04 MCV 92.4 MCH 31.9 MCHC 34.5 RDW 14.4 Plt Count 216 MPV 10.0 Absolute Nucleated RBC 0.000 Nucleated RBC % (auto) 0.0 Anion Gap 10 L Estim Creat Clear Calc 91.5 Estimated GFR > 60 Random Glucose 95 Calcium 9.1 Phosphorus 3.0 Magnesium 2.1 Total Bilirubin 0.6 Direct Bilirubin 0.2 AST 21 ALT 28 Alkaline Phosphatase 82 Total Protein 6.1 L Albumin 3.3 L TSH 3.00 Assessment and Plan (1) Cognitive and behavioral changes: Status: Acute Plan 83M PMH htn, unspecified dementia, admitted to [facility] 02/13/24 for FTT, not taking meds or food, transfered to medicine 02/14/24. 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 EEG showing general slowing but no seizure disorder diet and mentation improved, WAREHOUSE ORDER PULLER appreciated, NDD3 solids, thin liquids recent routine labs 05/14/24 unremarkable bilateral conjunctivitis completed treatment Hypertension Transdermal clonidine Amlodipine Mood disorder Risperidone, trazodone DVT prophylaxis with Lovenox Full Code reason for continued hospitalization: Safe dispo The patient HCP is his step-daughter Alcides can be reached on [phone] Patient sister name is Dr. Nate Genao and her phone number is [phone] to be contacted for any updates. Quality Stroke Does the patient have a stroke diagnosis?: No VTE Prior VTE?: No VTE Risk Level:: Medical - moderate - high VTE Device Contraindication: Treatment Not Indicated VTE Drug Contraindication: N/A - Med Ordered
--- NOTE | 2024-05-15 13:31 | MHC.CM.PN ---
This conventional underwriter spoke with Sita Pace. She will be filing [employer] nilsa today. She does not have a lot of information about pt's finances and it working with pt's regarding any assets in a will. Will continue to communicate with [facility] re: [facility] process.
[2024-05-15 15:16] VITALS: BP 151/83; PULSE 94; RESP 16; TEMP 36.8; O2SAT 95
[2024-05-15] MEDS: Enoxaparin Sodium 40 MG/0.4 ML SYRINGE SUBCUT (16:39)
[2024-05-15 23:31] VITALS: BP 140/76; PULSE 74; RESP 16; TEMP 36.4; O2SAT 98
[2024-05-16 08:00] VITALS: BP 159/85; PULSE 58; RESP 16; TEMP 36.2; O2SAT 98
[2024-05-16] MEDS: risperiDONE Oral Sol 1 MG/ML SOLUTION 0.5 MG PO ×2 (08:31→20:01)
[2024-05-16] MEDS: Miconazole Nitrate 2% Powder 85 GM Bottle 1 APPL TOPICAL ×2 (08:31→20:01)
[2024-05-16] MEDS: Erythromycin Base 0.5% Oph Oin 1 GM TUBE 1 CM EYE-BOTH ×3 (13:02→20:04)
--- NOTE | 2024-05-16 14:52 | HO.PM.IMPN ---
Subjective Subjective Date of Service: 05/16/24 Interval History: no compliants but noted to have bilateral lower eyelid redness L>R Review of Systems Review of Systems: Yes all other systems are reviewed and are negative Physical Exam Vital Signs: Vital Signs: Last Vital Signs Temp 97.1 F 05/16/24 08:00 Pulse 58 05/16/24 08:00 Resp 16 05/16/24 08:00 BP 159/85 H 05/16/24 08:00 Pulse Ox 98 05/16/24 08:00 O2 Del Method Room Air 05/16/24 08:00 O2 Flow Rate 2 03/28/24 07:24 BMI result Body Mass Index 20.1 Gen: in no acute distress HEENT: erythema of L>R lower eyelids Neck: supple Lungs: clear to auscultation bilaterally Heart: regular rate and rhythm, no murmurs Abd: soft, non-tender, non-distended Ext: no edema Skin: warm/well-perfused Neuro: alert, disoriented Psych: impaired insight Objective Data Active Medications Acetaminophen (Acetaminophen 325 Mg Tablet) 650 mg PO Q6H PRN PRN Reason: Pain, Mild (Pain Scale 1-3), fever or headache Last Admin: 05/02/24 13:31 Dose: 650 mg Al Hydroxide/Mg Hydroxide (Magnesium Hydrox/Alum Hydrox 30 Ml Oral.Susp) 30 ml PO Q6H PRN PRN Reason: Constipation Benzonatate (Benzonatate 100 Mg Capsule) 100 mg PO TID PRN PRN Reason: Cough Calcium Carbonate (Calcium Carbonate 750 Mg Tab.Chew) 750 mg PO Q4H PRN PRN Reason: Heartburn Clonidine (Clonidine 0.1 Mg Patch.Tdwk) 0.1 mg TRANSDERMA Tu@0900 [facility]; Protocol Last Admin: 05/12/24 08:12 Dose: 0.1 mg Documented By: LATRICIA Enoxaparin Sodium (Enoxaparin Sodium 40 Mg/0.4 Ml Syringe) 40 mg SUBCUT Q24H [facility] Last Admin: 05/15/24 16:39 Dose: 40 mg Documented By: SOL Erythromycin (Erythromycin Base 0.5% Oph Oin 1 Gm Tube) 1 cm EYE-BOTH QID [facility] Stop: 05/21/24 12:59 Last Admin: 05/16/24 13:02 Dose: 1 cm Documented By: CELINE Loperamide HCl (Loperamide Hcl 2 Mg Capsule) 2 mg PO Q4H PRN PRN Reason: Diarrhea Last Admin: 04/27/24 15:22 Dose: 2 mg Documented By: JESSICA Magnesium Hydroxide (Milk Of Magnesia 30 Ml Oral.Susp) 30 ml PO DAILY PRN PRN Reason: Constipation Melatonin (Melatonin 3 Mg Tablet) 6 mg PO BEDTIME PRN PRN Reason: Insomnia Last Admin: 04/29/24 19:24 Dose: 6 mg Miconazole Nitrate (Miconazole Nitrate 2% Powder 85 Gm Bottle) 1 appl TOPICAL BID [facility]; Protocol Last Admin: 05/16/24 08:31 Dose: 1 appl Documented By: CELINE Nicotine Polacrilex (Nicotine Polacrilex 2 Mg Gum) 4 mg BUCCAL Q2H PRN PRN Reason: Nicotine Cravings Ondansetron HCl (Ondansetron Hcl 4 Mg/2 Ml Vial) 4 mg IVPUSH Q8H PRN PRN Reason: Nausea and Vomiting Last Admin: 03/02/24 18:44 Dose: 4 mg Documented By: SEN Ondansetron HCl (Ondansetron Odt 4 Mg Tab.Rapdis) 4 mg TRANSLINGU Q6H PRN PRN Reason: Nausea and Vomiting Last Admin: 04/08/24 19:57 Dose: 4 mg Documented By: JENSEN Quetiapine Fumarate (Quetiapine Fumarate 25 Mg Tablet) 25 mg PO ONCE PRN PRN Reason: about 45 min before eeg Last Admin: 02/17/24 09:40 Dose: 25 mg Documented By: SHLOMO Risperidone (Risperidone Oral Peg 1 Mg/Ml Solution) 0.5 mg PO BID [facility] Last Admin: 05/16/24 08:31 Dose: 0.5 mg Documented By: CELINE Trazodone HCl (Trazodone Hcl 25 Mg Halftab) 25 mg PO BEDTIME PRN PRN Reason: Insomnia Last Admin: 04/29/24 19:24 Dose: 25 mg Labs 05/14/24 13:04 05/14/24 13:04 Assessment and Plan (1) Cognitive and behavioral changes: Status: Acute Plan d93 83yo M with HTN, unspecified dementia; admitted to [facility] 02/13/24 for FTT, not taking meds or food; transferred to medicine 02/14/24. 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 Nate Genao and her phone number is [phone] to be contacted for any updates. Total time managing care of this patient today: 35 minutes. Quality Stroke Does the patient have a stroke diagnosis?: No VTE Prior VTE?: No VTE Risk Level:: Medical - moderate - high VTE Device Contraindication: Treatment Not Indicated VTE Drug Contraindication: N/A - Med Ordered
[2024-05-16 15:27] VITALS: BP 159/72; PULSE 88; RESP 18; TEMP 36.2; O2SAT 97
[2024-05-16] MEDS: Enoxaparin Sodium 40 MG/0.4 ML SYRINGE SUBCUT (16:03)
[2024-05-16 23:33] VITALS: BP 120/64; PULSE 89; RESP 16; TEMP 36.4; O2SAT 97
[2024-05-17 07:18] VITALS: BP 161/73; PULSE 61; RESP 16; TEMP 36.1; O2SAT 98
[2024-05-17] MEDS: Miconazole Nitrate 2% Powder 85 GM Bottle 1 APPL TOPICAL ×2 (08:30→21:15)
[2024-05-17] MEDS: Erythromycin Base 0.5% Oph Oin 1 GM TUBE 1 CM EYE-BOTH ×4 (08:30→21:16)
[2024-05-17] MEDS: risperiDONE Oral Sol 1 MG/ML SOLUTION 0.5 MG PO ×2 (08:30→21:25)
--- NOTE | 2024-05-17 10:06 | HO.PM.IMPN ---
Subjective Subjective Date of Service: 05/17/24 Interval History: No new complaints Physical Exam Vital Signs: Vital Signs: Last Vital Signs Temp 97.0 F 05/17/24 07:18 Pulse 61 05/17/24 07:18 Resp 16 05/17/24 07:18 BP 161/73 H 05/17/24 07:18 Pulse Ox 98 05/17/24 07:18 O2 Del Method Room Air 05/17/24 07:18 O2 Flow Rate 2 03/28/24 07:24 BMI result Body Mass Index 20.1 Gen: in no acute distress HEENT: erythema of L>R lower eyelids Neck: supple Lungs: clear to auscultation bilaterally Heart: regular rate and rhythm, no murmurs Abd: soft, non-tender, non-distended Ext: no edema Skin: warm/well-perfused Neuro: alert, disoriented Psych: impaired insight Objective Data Active Medications Acetaminophen (Acetaminophen 325 Mg Tablet) 650 mg PO Q6H PRN PRN Reason: Pain, Mild (Pain Scale 1-3), fever or headache Last Admin: 05/02/24 13:31 Dose: 650 mg Al Hydroxide/Mg Hydroxide (Magnesium Hydrox/Alum Hydrox 30 Ml Oral.Susp) 30 ml PO Q6H PRN PRN Reason: Constipation Benzonatate (Benzonatate 100 Mg Capsule) 100 mg PO TID PRN PRN Reason: Cough Calcium Carbonate (Calcium Carbonate 750 Mg Tab.Chew) 750 mg PO Q4H PRN PRN Reason: Heartburn Clonidine (Clonidine 0.1 Mg Patch.Tdwk) 0.1 mg TRANSDERMA Tu@0900 [facility]; Protocol Last Admin: 05/12/24 08:12 Dose: 0.1 mg Documented By: LATRICIA Enoxaparin Sodium (Enoxaparin Sodium 40 Mg/0.4 Ml Syringe) 40 mg SUBCUT Q24H [facility] Last Admin: 05/16/24 16:03 Dose: 40 mg Documented By: CELINE Erythromycin (Erythromycin Base 0.5% Oph Oin 1 Gm Tube) 1 cm EYE-BOTH QID [facility] Stop: 05/21/24 12:59 Last Admin: 05/17/24 08:30 Dose: 1 cm Documented By: CELINE Loperamide HCl (Loperamide Hcl 2 Mg Capsule) 2 mg PO Q4H PRN PRN Reason: Diarrhea Last Admin: 04/27/24 15:22 Dose: 2 mg Documented By: JESSICA Magnesium Hydroxide (Milk Of Magnesia 30 Ml Oral.Susp) 30 ml PO DAILY PRN PRN Reason: Constipation Melatonin (Melatonin 3 Mg Tablet) 6 mg PO BEDTIME PRN PRN Reason: Insomnia Last Admin: 04/29/24 19:24 Dose: 6 mg Miconazole Nitrate (Miconazole Nitrate 2% Powder 85 Gm Bottle) 1 appl TOPICAL BID [facility]; Protocol Last Admin: 05/17/24 08:30 Dose: 1 appl Documented By: CELINE Nicotine Polacrilex (Nicotine Polacrilex 2 Mg Gum) 4 mg BUCCAL Q2H PRN PRN Reason: Nicotine Cravings Ondansetron HCl (Ondansetron Hcl 4 Mg/2 Ml Vial) 4 mg IVPUSH Q8H PRN PRN Reason: Nausea and Vomiting Last Admin: 03/02/24 18:44 Dose: 4 mg Documented By: SEN Ondansetron HCl (Ondansetron Odt 4 Mg Tab.Rapdis) 4 mg TRANSLINGU Q6H PRN PRN Reason: Nausea and Vomiting Last Admin: 04/08/24 19:57 Dose: 4 mg Documented By: JENSEN Risperidone (Risperidone Oral Peg 1 Mg/Ml Solution) 0.5 mg PO BID [facility] Last Admin: 05/17/24 08:30 Dose: 0.5 mg Documented By: CELINE Trazodone HCl (Trazodone Hcl 25 Mg Halftab) 25 mg PO BEDTIME PRN PRN Reason: Insomnia Last Admin: 04/29/24 19:24 Dose: 25 mg Labs 05/14/24 13:04 05/14/24 13:04 Assessment and Plan (1) Cognitive and behavioral changes: Status: Acute Plan d94 83yo M with HTN, unspecified dementia; [facility] medical [facility] 02/13/24 for FTT, not taking meds or food; transferred to medicine 02/14/24. 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 Nate Genao and her phone number is [phone] to be contacted for any updates. Total time managing care of this patient today: 35 minutes. Quality Stroke Does the patient have a stroke diagnosis?: No VTE Prior VTE?: No VTE Risk Level:: Medical - moderate - high VTE Device Contraindication: Treatment Not Indicated VTE Drug Contraindication: N/A - Med Ordered
[2024-05-17 15:36] VITALS: BP 172/96; PULSE 119; RESP 18; TEMP 37.1; O2SAT 97
[2024-05-17] MEDS: Enoxaparin Sodium 40 MG/0.4 ML SYRINGE SUBCUT (15:55)
[2024-05-17 23:13] VITALS: BP 134/77; PULSE 81; RESP 18; TEMP 36.4; O2SAT 95
[2024-05-18 07:23] VITALS: BP 134/63; PULSE 66; RESP 14; TEMP 36.3; O2SAT 97
[2024-05-18] MEDS: risperiDONE Oral Sol 1 MG/ML SOLUTION 0.5 MG PO ×2 (08:11→20:09)
[2024-05-18] MEDS: Miconazole Nitrate 2% Powder 85 GM Bottle 1 APPL TOPICAL ×2 (08:12→20:05)
[2024-05-18] MEDS: Erythromycin Base 0.5% Oph Oin 1 GM TUBE 1 CM EYE-BOTH ×4 (08:12→20:06)
--- NOTE | 2024-05-18 11:42 | P.PNIM_ITS ---
Subjective Subjective Date of Service: 05/18/24 Interval History: No new complaints Physical Exam 2 Vital Signs: Vital Signs: Last Vital Signs Temp 97.4 F 05/18/24 07:23 Pulse 66 05/18/24 07:23 Resp 14 05/18/24 07:23 BP 134/63 05/18/24 07:23 Pulse Ox 97 05/18/24 07:23 O2 Del Method Room Air 05/18/24 07:23 O2 Flow Rate 2 03/28/24 07:24 BMI result Body Mass Index 20.1 Gen: in no acute distress HEENT: erythema around eye lids resolved. Neck: supple Lungs: clear to auscultation bilaterally Heart: regular rate and rhythm, no murmurs Abd: soft, non-tender, non-distended Ext: no edema Skin: warm/well-perfused Neuro: alert, disoriented Psych: impaired insight Objective Data Active Medications Acetaminophen (Acetaminophen 325 Mg Tablet) 650 mg PO Q6H PRN PRN Reason: Pain, Mild (Pain Scale 1-3), fever or headache Last Admin: 05/02/24 13:31 Dose: 650 mg Al Hydroxide/Mg Hydroxide (Magnesium Hydrox/Alum Hydrox 30 Ml Oral.Susp) 30 ml PO Q6H PRN PRN Reason: Constipation Benzonatate (Benzonatate 100 Mg Capsule) 100 mg PO TID PRN PRN Reason: Cough Calcium Carbonate (Calcium Carbonate 750 Mg Tab.Chew) 750 mg PO Q4H PRN PRN Reason: Heartburn Clonidine (Clonidine 0.1 Mg Patch.Tdwk) 0.1 mg TRANSDERMA Tu@0900 [facility]; Protocol Last Admin: 05/12/24 08:12 Dose: 0.1 mg Documented By: LATRICIA Enoxaparin Sodium (Enoxaparin Sodium 40 Mg/0.4 Ml Syringe) 40 mg SUBCUT Q24H [facility] Last Admin: 05/17/24 15:55 Dose: 40 mg Documented By: CELINE Erythromycin (Erythromycin Base 0.5% Oph Oin 1 Gm Tube) 1 cm EYE-BOTH QID [facility] Stop: 05/21/24 12:59 Last Admin: 05/18/24 08:12 Dose: 1 cm Documented By: LATRICIA Loperamide HCl (Loperamide Hcl 2 Mg Capsule) 2 mg PO Q4H PRN PRN Reason: Diarrhea Last Admin: 04/27/24 15:22 Dose: 2 mg Documented By: JESSICA Magnesium Hydroxide (Milk Of Magnesia 30 Ml Oral.Susp) 30 ml PO DAILY PRN PRN Reason: Constipation Melatonin (Melatonin 3 Mg Tablet) 6 mg PO BEDTIME PRN PRN Reason: Insomnia Last Admin: 04/29/24 19:24 Dose: 6 mg Miconazole Nitrate (Miconazole Nitrate 2% Powder 85 Gm Bottle) 1 appl TOPICAL BID [facility]; Protocol Last Admin: 05/18/24 08:12 Dose: 1 appl Documented By: LATRICIA Nicotine Polacrilex (Nicotine Polacrilex 2 Mg Gum) 4 mg BUCCAL Q2H PRN PRN Reason: Nicotine Cravings Ondansetron HCl (Ondansetron Hcl 4 Mg/2 Ml Vial) 4 mg IVPUSH Q8H PRN PRN Reason: Nausea and Vomiting Last Admin: 03/02/24 18:44 Dose: 4 mg Documented By: SEN Ondansetron HCl (Ondansetron Odt 4 Mg Tab.Rapdis) 4 mg TRANSLINGU Q6H PRN PRN Reason: Nausea and Vomiting Last Admin: 04/08/24 19:57 Dose: 4 mg Documented By: JENSEN Risperidone (Risperidone Oral Peg 1 Mg/Ml Solution) 0.5 mg PO BID [facility] Last Admin: 05/18/24 08:11 Dose: 0.5 mg Documented By: LATRICIA Trazodone HCl (Trazodone Hcl 25 Mg Halftab) 25 mg PO BEDTIME PRN PRN Reason: Insomnia Last Admin: 04/29/24 19:24 Dose: 25 mg Labs 05/14/24 13:04 05/14/24 13:04 Assessment and Plan (1) Cognitive and behavioral changes: Status: Acute Plan 83yo M with HTN, unspecified dementia; admitted to [facility] 02/13/24 for FTT, not taking meds or food; transferred to medicine 02/14/24. 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 Nate Genao and her phone number is [phone] to be contacted for any updates. Total time managing care of this patient today: 15 minutes. Quality Stroke Does the patient have a stroke diagnosis?: No VTE Prior VTE?: No VTE Risk Level:: Medical - moderate - high VTE Device Contraindication: Treatment Not Indicated VTE Drug Contraindication: N/A - Med Ordered
[2024-05-18 13:00] VITALS: BMI 20.4
[2024-05-18] MEDS: Enoxaparin Sodium 40 MG/0.4 ML SYRINGE SUBCUT (15:20)
[2024-05-18 15:24] VITALS: BP 173/86; PULSE 113; RESP 16; TEMP 36.1; O2SAT 93
--- NOTE | 2024-05-18 15:30 | MHC.CM.PN ---
PT IS AWAITING COMPLETION OF FINANCIALS BY CONSERVATOR TO DETERMINE PAYER SOURCE FOR LTC. CM CONTINUES TO FOLLOW.
[2024-05-18 23:49] VITALS: BP 134/71; PULSE 66; RESP 18; TEMP 36.3; O2SAT 97
[2024-05-19 07:43] VITALS: BP 132/62; PULSE 71; RESP 18; TEMP 36.2; O2SAT 96
[2024-05-19] MEDS: cloNIDine 0.1 MG PATCH.TDWK TRANSDERMA (08:32)
[2024-05-19] MEDS: Miconazole Nitrate 2% Powder 85 GM Bottle 1 APPL TOPICAL ×2 (08:32→21:00)
[2024-05-19] MEDS: risperiDONE Oral Sol 1 MG/ML SOLUTION 0.5 MG PO ×2 (08:32→21:00)
[2024-05-19] MEDS: Erythromycin Base 0.5% Oph Oin 1 GM TUBE 1 CM EYE-BOTH ×4 (08:32→21:00)
--- NOTE | 2024-05-19 09:54 | P.PNIM_ITS ---
Subjective Subjective Date of Service: 05/19/24 Interval History: No new complaints Physical Exam 2 Vital Signs: Vital Signs: Last Vital Signs Temp 97.1 F 05/19/24 07:43 Pulse 71 05/19/24 07:43 Resp 18 05/19/24 07:43 BP 132/62 05/19/24 07:43 Pulse Ox 96 05/19/24 07:43 O2 Del Method Room Air 05/19/24 07:43 O2 Flow Rate 2 03/28/24 07:24 BMI result Body Mass Index 20.4 Gen: in no acute distress HEENT: erythema around eye lids resolved. Neck: supple Lungs: clear to auscultation bilaterally Heart: regular rate and rhythm, no murmurs Abd: soft, non-tender, non-distended Ext: no edema Skin: warm/well-perfused Neuro: alert, disoriented Psych: impaired insight Objective Data Active Medications Acetaminophen (Acetaminophen 325 Mg Tablet) 650 mg PO Q6H PRN PRN Reason: Pain, Mild (Pain Scale 1-3), fever or headache Last Admin: 05/02/24 13:31 Dose: 650 mg Al Hydroxide/Mg Hydroxide (Magnesium Hydrox/Alum Hydrox 30 Ml Oral.Susp) 30 ml PO Q6H PRN PRN Reason: Constipation Benzonatate (Benzonatate 100 Mg Capsule) 100 mg PO TID PRN PRN Reason: Cough Calcium Carbonate (Calcium Carbonate 750 Mg Tab.Chew) 750 mg PO Q4H PRN PRN Reason: Heartburn Clonidine (Clonidine 0.1 Mg Patch.Tdwk) 0.1 mg TRANSDERMA Tu@0900 [facility]; Protocol Last Admin: 05/19/24 08:32 Dose: 0.1 mg Documented By: LATRICIA Enoxaparin Sodium (Enoxaparin Sodium 40 Mg/0.4 Ml Syringe) 40 mg SUBCUT Q24H [facility] Last Admin: 05/18/24 15:20 Dose: 40 mg Documented By: LATRICIA Erythromycin (Erythromycin Base 0.5% Oph Oin 1 Gm Tube) 1 cm EYE-BOTH QID [facility] Stop: 05/21/24 12:59 Last Admin: 05/19/24 08:32 Dose: 1 cm Documented By: LATRICIA Loperamide HCl (Loperamide Hcl 2 Mg Capsule) 2 mg PO Q4H PRN PRN Reason: Diarrhea Last Admin: 04/27/24 15:22 Dose: 2 mg Documented By: JESSICA Magnesium Hydroxide (Milk Of Magnesia 30 Ml Oral.Susp) 30 ml PO DAILY PRN PRN Reason: Constipation Melatonin (Melatonin 3 Mg Tablet) 6 mg PO BEDTIME PRN PRN Reason: Insomnia Last Admin: 04/29/24 19:24 Dose: 6 mg Miconazole Nitrate (Miconazole Nitrate 2% Powder 85 Gm Bottle) 1 appl TOPICAL BID [facility]; Protocol Last Admin: 05/19/24 08:32 Dose: 1 appl Documented By: LATRICIA Nicotine Polacrilex (Nicotine Polacrilex 2 Mg Gum) 4 mg BUCCAL Q2H PRN PRN Reason: Nicotine Cravings Ondansetron HCl (Ondansetron Hcl 4 Mg/2 Ml Vial) 4 mg IVPUSH Q8H PRN PRN Reason: Nausea and Vomiting Last Admin: 03/02/24 18:44 Dose: 4 mg Documented By: SEN Ondansetron HCl (Ondansetron Odt 4 Mg Tab.Rapdis) 4 mg TRANSLINGU Q6H PRN PRN Reason: Nausea and Vomiting Last Admin: 04/08/24 19:57 Dose: 4 mg Documented By: GERARDO-DILMA Risperidone (Risperidone Oral Peg 1 Mg/Ml Solution) 0.5 mg PO BID [facility] Last Admin: 05/19/24 08:32 Dose: 0.5 mg Documented By: LATRICIA Trazodone HCl (Trazodone Hcl 25 Mg Halftab) 25 mg PO BEDTIME PRN PRN Reason: Insomnia Last Admin: 04/29/24 19:24 Dose: 25 mg Labs 05/14/24 13:04 05/14/24 13:04 Assessment and Plan (1) Cognitive and behavioral changes: Status: Acute Plan 83yo M with HTN, unspecified dementia; admitted to [facility] 02/13/24 for FTT, not taking meds or food; transferred to medicine 02/14/24. 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 Nate Genao and her phone number is [phone] to be contacted for any updates. Total time managing care of this patient today: 15 minutes. Quality Stroke Does the patient have a stroke diagnosis?: No VTE Prior VTE?: No VTE Risk Level:: Medical - moderate - high VTE Device Contraindication: Treatment Not Indicated VTE Drug Contraindication: N/A - Med Ordered
[2024-05-19 15:20] VITALS: BP 154/77; PULSE 82; RESP 18; TEMP 36.3; O2SAT 95
[2024-05-19] MEDS: Enoxaparin Sodium 40 MG/0.4 ML SYRINGE SUBCUT (15:26)
[2024-05-19 23:21] VITALS: BP 135/79; PULSE 76; RESP 16; TEMP 36.1; O2SAT 95
[2024-05-20] MEDS: Erythromycin Base 0.5% Oph Oin 1 GM TUBE 1 CM EYE-BOTH ×4 (08:01→20:37)
[2024-05-20] MEDS: risperiDONE Oral Sol 1 MG/ML SOLUTION 0.5 MG PO ×2 (08:01→20:37)
[2024-05-20] MEDS: Miconazole Nitrate 2% Powder 85 GM Bottle 1 APPL TOPICAL ×2 (08:01→20:38)
[2024-05-20 08:02] VITALS: BP 141/73; PULSE 69; RESP 12; TEMP 36.7; O2SAT 94
--- NOTE | 2024-05-20 10:22 | MHC.CM.PN ---
Barrier to discharge: Conservator to complete the [facility] application. Once [facility] complete referrals will be sent to SNFs for LTC placement. CM will continue to follow for placement. DP LTC via BLS.
--- NOTE | 2024-05-20 10:47 | P.PNIM_ITS ---
Subjective Subjective Date of Service: 05/20/24 Interval History: No new complaints appear comfortable Physical Exam 2 Vital Signs: Vital Signs: Last Vital Signs Temp 98.0 F 05/20/24 08:02 Pulse 69 05/20/24 08:02 Resp 12 05/20/24 08:02 BP 141/73 H 05/20/24 08:02 Pulse Ox 94 05/20/24 08:02 O2 Del Method Room Air 05/20/24 08:02 O2 Flow Rate 2 03/28/24 07:24 BMI result Body Mass Index 20.4 Gen: in no acute distress HEENT: erythema around eye lids resolved. Neck: supple Lungs: clear to auscultation bilaterally Heart: regular rate and rhythm, no murmurs Abd: soft, non-tender, non-distended Ext: no edema Skin: warm/well-perfused Neuro: alert, disoriented Psych: impaired insight Objective Data Active Medications Acetaminophen (Acetaminophen 325 Mg Tablet) 650 mg PO Q6H PRN PRN Reason: Pain, Mild (Pain Scale 1-3), fever or headache Last Admin: 05/02/24 13:31 Dose: 650 mg Al Hydroxide/Mg Hydroxide (Magnesium Hydrox/Alum Hydrox 30 Ml Oral.Susp) 30 ml PO Q6H PRN PRN Reason: Constipation Benzonatate (Benzonatate 100 Mg Capsule) 100 mg PO TID PRN PRN Reason: Cough Calcium Carbonate (Calcium Carbonate 750 Mg Tab.Chew) 750 mg PO Q4H PRN PRN Reason: Heartburn Clonidine (Clonidine 0.1 Mg Patch.Tdwk) 0.1 mg TRANSDERMA Tu@0900 [facility]; Protocol Last Admin: 05/19/24 08:32 Dose: 0.1 mg Documented By: LATRICIA Enoxaparin Sodium (Enoxaparin Sodium 40 Mg/0.4 Ml Syringe) 40 mg SUBCUT Q24H [facility] Last Admin: 05/19/24 15:26 Dose: 40 mg Documented By: LATRICIA Erythromycin (Erythromycin Base 0.5% Oph Oin 1 Gm Tube) 1 cm EYE-BOTH QID [facility] Stop: 05/21/24 12:59 Last Admin: 05/20/24 08:01 Dose: 1 cm Documented By: LATRICIA Loperamide HCl (Loperamide Hcl 2 Mg Capsule) 2 mg PO Q4H PRN PRN Reason: Diarrhea Last Admin: 04/27/24 15:22 Dose: 2 mg Documented By: JESSICA Magnesium Hydroxide (Milk Of Magnesia 30 Ml Oral.Susp) 30 ml PO DAILY PRN PRN Reason: Constipation Melatonin (Melatonin 3 Mg Tablet) 6 mg PO BEDTIME PRN PRN Reason: Insomnia Last Admin: 04/29/24 19:24 Dose: 6 mg Miconazole Nitrate (Miconazole Nitrate 2% Powder 85 Gm Bottle) 1 appl TOPICAL BID [facility]; Protocol Last Admin: 05/20/24 08:01 Dose: 1 appl Documented By: LATRICIA Nicotine Polacrilex (Nicotine Polacrilex 2 Mg Gum) 4 mg BUCCAL Q2H PRN PRN Reason: Nicotine Cravings Ondansetron HCl (Ondansetron Hcl 4 Mg/2 Ml Vial) 4 mg IVPUSH Q8H PRN PRN Reason: Nausea and Vomiting Last Admin: 03/02/24 18:44 Dose: 4 mg Documented By: SEN Ondansetron HCl (Ondansetron Odt 4 Mg Tab.Rapdis) 4 mg TRANSLINGU Q6H PRN PRN Reason: Nausea and Vomiting Last Admin: 04/08/24 19:57 Dose: 4 mg Documented By: GERARDO-ZADRNeville Risperidone (Risperidone Oral Peg 1 Mg/Ml Solution) 0.5 mg PO BID [facility] Last Admin: 05/20/24 08:01 Dose: 0.5 mg Documented By: LATRICIA Trazodone HCl (Trazodone Hcl 25 Mg Halftab) 25 mg PO BEDTIME PRN PRN Reason: Insomnia Last Admin: 04/29/24 19:24 Dose: 25 mg Labs 05/14/24 13:04 05/14/24 13:04 Assessment and Plan (1) Cognitive and behavioral changes: Status: Acute Plan 83yo M with HTN, unspecified dementia; admitted to [facility] 02/13/24 for FTT, not taking meds or food; transferred to medicine 02/14/24. 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 Nate Genao and her phone number is [phone] to be contacted for any updates. Total time managing care of this patient today: 15 minutes. Quality Stroke Does the patient have a stroke diagnosis?: No VTE Prior VTE?: No VTE Risk Level:: Medical - moderate - high VTE Device Contraindication: Treatment Not Indicated VTE Drug Contraindication: N/A - Med Ordered
[2024-05-20 14:57] VITALS: BP 149/83; PULSE 103; RESP 18; TEMP 36.3; O2SAT 94
[2024-05-20] MEDS: Enoxaparin Sodium 40 MG/0.4 ML SYRINGE SUBCUT (15:30)
[2024-05-20 19:42] VITALS: BP 141/90; PULSE 97; RESP 20; TEMP 36.3; O2SAT 95
[2024-05-20 23:51] VITALS: BP 167/80; PULSE 69; RESP 16; TEMP 36; O2SAT 96
--- NOTE | 2024-05-21 07:39 | P.PNIM_ITS ---
Subjective Subjective Date of Service: 05/21/24 Interval History: No new issues reported, bp a bit hgh this morning Physical Exam 2 Vital Signs: Vital Signs: Last Vital Signs Temp 96.8 F 05/20/24 23:51 Pulse 69 05/20/24 23:51 Resp 16 05/20/24 23:51 BP 167/80 H 05/20/24 23:51 Pulse Ox 96 05/20/24 23:51 O2 Del Method Room Air 05/20/24 23:51 O2 Flow Rate 2 03/28/24 07:24 BMI result Body Mass Index 20.4 Gen: in no acute distress HEENT: erythema around eye lids resolved. Neck: supple Lungs: clear to auscultation bilaterally Heart: regular rate and rhythm, no murmurs Abd: soft, non-tender, non-distended Ext: no edema Skin: warm/well-perfused Neuro: alert, disoriented Psych: impaired insight Objective Data Active Medications Acetaminophen (Acetaminophen 325 Mg Tablet) 650 mg PO Q6H PRN PRN Reason: Pain, Mild (Pain Scale 1-3), fever or headache Last Admin: 05/02/24 13:31 Dose: 650 mg Al Hydroxide/Mg Hydroxide (Magnesium Hydrox/Alum Hydrox 30 Ml Oral.Susp) 30 ml PO Q6H PRN PRN Reason: Constipation Benzonatate (Benzonatate 100 Mg Capsule) 100 mg PO TID PRN PRN Reason: Cough Calcium Carbonate (Calcium Carbonate 750 Mg Tab.Chew) 750 mg PO Q4H PRN PRN Reason: Heartburn Clonidine (Clonidine 0.1 Mg Patch.Tdwk) 0.1 mg TRANSDERMA Tu@0900 [facility]; Protocol Last Admin: 05/19/24 08:32 Dose: 0.1 mg Documented By: LATRICIA Enoxaparin Sodium (Enoxaparin Sodium 40 Mg/0.4 Ml Syringe) 40 mg SUBCUT Q24H [facility] Last Admin: 05/20/24 15:30 Dose: 40 mg Documented By: LATRICIA Erythromycin (Erythromycin Base 0.5% Oph Oin 1 Gm Tube) 1 cm EYE-BOTH QID [facility] Stop: 05/21/24 12:59 Last Admin: 05/20/24 20:37 Dose: 1 cm Documented By: SATNAM Loperamide HCl (Loperamide Hcl 2 Mg Capsule) 2 mg PO Q4H PRN PRN Reason: Diarrhea Last Admin: 04/27/24 15:22 Dose: 2 mg Documented By: JESSICA Magnesium Hydroxide (Milk Of Magnesia 30 Ml Oral.Susp) 30 ml PO DAILY PRN PRN Reason: Constipation Melatonin (Melatonin 3 Mg Tablet) 6 mg PO BEDTIME PRN PRN Reason: Insomnia Last Admin: 04/29/24 19:24 Dose: 6 mg Miconazole Nitrate (Miconazole Nitrate 2% Powder 85 Gm Bottle) 1 appl TOPICAL BID [facility]; Protocol Last Admin: 05/20/24 20:38 Dose: 1 appl Documented By: SATNAM Nicotine Polacrilex (Nicotine Polacrilex 2 Mg Gum) 4 mg BUCCAL Q2H PRN PRN Reason: Nicotine Cravings Ondansetron HCl (Ondansetron Hcl 4 Mg/2 Ml Vial) 4 mg IVPUSH Q8H PRN PRN Reason: Nausea and Vomiting Last Admin: 03/02/24 18:44 Dose: 4 mg Documented By: SEN Ondansetron HCl (Ondansetron Odt 4 Mg Tab.Rapdis) 4 mg TRANSLINGU Q6H PRN PRN Reason: Nausea and Vomiting Last Admin: 04/08/24 19:57 Dose: 4 mg Documented By: GERARDO-KAVYADRNeville Risperidone (Risperidone Oral Peg 1 Mg/Ml Solution) 0.5 mg PO BID [facility] Last Admin: 05/20/24 20:37 Dose: 0.5 mg Documented By: SATNAM Trazodone HCl (Trazodone Hcl 25 Mg Halftab) 25 mg PO BEDTIME PRN PRN Reason: Insomnia Last Admin: 04/29/24 19:24 Dose: 25 mg Labs 05/14/24 13:04 05/14/24 13:04 Assessment and Plan (1) Cognitive and behavioral changes: Status: Acute Plan 83yo M with HTN, unspecified dementia; admitted to [facility] 02/13/24 for FTT, not taking meds or food; transferred to medicine 02/14/24. 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 Nate Genao and her phone number is [phone] to be contacted for any updates. Total time managing care of this patient today: 15 minutes. Quality Stroke Does the patient have a stroke diagnosis?: No VTE Prior VTE?: No VTE Risk Level:: Medical - moderate - high VTE Device Contraindication: Treatment Not Indicated VTE Drug Contraindication: N/A - Med Ordered
[2024-05-21 07:53] VITALS: BP 133/66; PULSE 59; RESP 12; TEMP 37; O2SAT 93
[2024-05-21] MEDS: risperiDONE Oral Sol 1 MG/ML SOLUTION 0.5 MG PO ×2 (08:10→19:54)
[2024-05-21] MEDS: Erythromycin Base 0.5% Oph Oin 1 GM TUBE 1 CM EYE-BOTH (08:11)
[2024-05-21] MEDS: Miconazole Nitrate 2% Powder 85 GM Bottle 1 APPL TOPICAL ×2 (08:11→19:55)
[2024-05-21 08:40] LABS: Hematocrit 40.1 % (42.0-52.0); Hemoglobin 13.9 g/dl (14.0-18.0); Mean Corpuscular HGB Conc 34.7 g/dl (31.0-36.0); Mean Corpuscular Hemoglobin 31.9 pg (27.0-33.0); Mean Platelet Volume 9.9 fL (9.4-12.4); Platelet Count 218 X10*3/uL (160-400); Red Blood Count 4.36 X10*6/uL (4.60-5.80); Red Cell Distribution Width 14.5 % (11.0-16.0); White Blood Count 6.3 X10*3/uL (4.8-10.8)
[2024-05-21 08:51] LABS: Anion Gap 12 (12-20); Blood Urea Nitrogen 13 mg/dL (9-16); Calcium 8.8 mg/dL (8.4-10.2); Carbon Dioxide 26 mmol/L (22-29); Chloride 108 mmol/L (96-108); Creatinine Clr Calc Pharmacy 86.9; Estimated Glomerular Filt Rate > 60; Glucose Random 80 mg/dL (60-115); Magnesium 2.1 mg/dL (1.6-2.6); Potassium 4.1 mmol/L (3.3-5.1); Sodium 142 mmol/L (135-145)
[2024-05-21] MEDS: Enoxaparin Sodium 40 MG/0.4 ML SYRINGE SUBCUT (15:45)
[2024-05-21 15:59] VITALS: BP 132/77; PULSE 93; RESP 18; TEMP 36.6; O2SAT 96
[2024-05-21 23:33] VITALS: BP 120/73; PULSE 60; RESP 18; TEMP 36.2; O2SAT 97
[2024-05-22 08:00] VITALS: BP 124/66; PULSE 56; RESP 12; TEMP 36.1; O2SAT 93
[2024-05-22] MEDS: risperiDONE Oral Sol 1 MG/ML SOLUTION 0.5 MG PO ×2 (08:24→21:34)
[2024-05-22] MEDS: Miconazole Nitrate 2% Powder 85 GM Bottle 1 APPL TOPICAL ×2 (08:25→21:15)
--- NOTE | 2024-05-22 09:50 | HO.PM.IMPN ---
Subjective Subjective Date of Service: 05/22/24 Interval History: At his baseline, no new issues Physical Exam Vital Signs: Vital Signs: Last Vital Signs Temp 96.9 F 05/22/24 08:00 Pulse 56 05/22/24 08:00 Resp 12 05/22/24 08:00 BP 124/66 05/22/24 08:00 Pulse Ox 93 05/22/24 08:00 O2 Del Method Room Air 05/22/24 08:00 O2 Flow Rate 2 03/28/24 07:24 BMI result Body Mass Index 20.4 Gen: in no acute distress HEENT: erythema around eye lids resolved. Neck: supple Lungs: clear to auscultation bilaterally Heart: regular rate and rhythm, no murmurs Abd: soft, non-tender, non-distended Ext: no edema Skin: warm/well-perfused Neuro: alert, disoriented Psych: impaired insight Objective Data Active Medications Acetaminophen (Acetaminophen 325 Mg Tablet) 650 mg PO Q6H PRN PRN Reason: Pain, Mild (Pain Scale 1-3), fever or headache Last Admin: 05/02/24 13:31 Dose: 650 mg Al Hydroxide/Mg Hydroxide (Magnesium Hydrox/Alum Hydrox 30 Ml Oral.Susp) 30 ml PO Q6H PRN PRN Reason: Constipation Benzonatate (Benzonatate 100 Mg Capsule) 100 mg PO TID PRN PRN Reason: Cough Calcium Carbonate (Calcium Carbonate 750 Mg Tab.Chew) 750 mg PO Q4H PRN PRN Reason: Heartburn Clonidine (Clonidine 0.1 Mg Patch.Tdwk) 0.1 mg TRANSDERMA Tu@0900 [facility]; Protocol Last Admin: 05/19/24 08:32 Dose: 0.1 mg Documented By: LATRICIA Enoxaparin Sodium (Enoxaparin Sodium 40 Mg/0.4 Ml Syringe) 40 mg SUBCUT Q24H [facility] Last Admin: 05/21/24 15:45 Dose: 40 mg Documented By: GISSELLE Loperamide HCl (Loperamide Hcl 2 Mg Capsule) 2 mg PO Q4H PRN PRN Reason: Diarrhea Last Admin: 04/27/24 15:22 Dose: 2 mg Documented By: JESSICA Magnesium Hydroxide (Milk Of Magnesia 30 Ml Oral.Susp) 30 ml PO DAILY PRN PRN Reason: Constipation Melatonin (Melatonin 3 Mg Tablet) 6 mg PO BEDTIME PRN PRN Reason: Insomnia Last Admin: 04/29/24 19:24 Dose: 6 mg Miconazole Nitrate (Miconazole Nitrate 2% Powder 85 Gm Bottle) 1 appl TOPICAL BID [facility]; Protocol Last Admin: 05/22/24 08:25 Dose: 1 appl Documented By: RADHA Nicotine Polacrilex (Nicotine Polacrilex 2 Mg Gum) 4 mg BUCCAL Q2H PRN PRN Reason: Nicotine Cravings Ondansetron HCl (Ondansetron Hcl 4 Mg/2 Ml Vial) 4 mg IVPUSH Q8H PRN PRN Reason: Nausea and Vomiting Last Admin: 03/02/24 18:44 Dose: 4 mg Documented By: SEN Ondansetron HCl (Ondansetron Odt 4 Mg Tab.Rapdis) 4 mg TRANSLINGU Q6H PRN PRN Reason: Nausea and Vomiting Last Admin: 04/08/24 19:57 Dose: 4 mg Documented By: CAPRICEZADRNeville Risperidone (Risperidone Oral Peg 1 Mg/Ml Solution) 0.5 mg PO BID [facility] Last Admin: 05/22/24 08:24 Dose: 0.5 mg Documented By: RADHA Trazodone HCl (Trazodone Hcl 25 Mg Halftab) 25 mg PO BEDTIME PRN PRN Reason: Insomnia Last Admin: 04/29/24 19:24 Dose: 25 mg Labs 05/21/24 08:15 05/21/24 08:15 Assessment and Plan (1) Cognitive and behavioral changes: Status: Acute Plan 83yo M with HTN, unspecified dementia; admitted [facility] 02/13/24 for FTT, not taking meds or food; transferred to medicine 02/14/24. 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 Nate Genao and her phone number is [phone] to be contacted for any updates. Total time managing care of this patient today: 15 minutes. Quality Stroke Does the patient have a stroke diagnosis?: No VTE Prior VTE?: No VTE Risk Level:: Medical - moderate - high VTE Device Contraindication: Treatment Not Indicated VTE Drug Contraindication: N/A - Med Ordered
--- NOTE | 2024-05-22 11:38 | MHC.CLN ---
F/U DIET=REGULAR, CHOPPED. SUPPLEMENT FORTIFIED ICE CREAM TID AND ENSURE TID. WEIGHT STABLE X 30 DAYS. PO INTAKE VARIABLE. RD TO MONITOR WEEKLY.
--- NOTE | 2024-05-22 15:09 | MHC.CM.PN ---
CM CONTINUES TO AWAIT FINANCIAL STATUS FROM CONSERVATOR SO PLACEMENT MAY BE SOUGHT.
[2024-05-22 15:47] VITALS: BP 135/60; PULSE 72; RESP 18; TEMP 36.4; O2SAT 94
[2024-05-22] MEDS: Enoxaparin Sodium 40 MG/0.4 ML SYRINGE SUBCUT (17:02)
[2024-05-22 23:29] VITALS: BP 140/74; PULSE 73; RESP 16; TEMP 36.3; O2SAT 97
[2024-05-23 07:44] VITALS: BP 120/62; PULSE 60; RESP 16; TEMP 36.5; O2SAT 97
[2024-05-23] MEDS: risperiDONE Oral Sol 1 MG/ML SOLUTION 0.5 MG PO ×2 (08:30→19:59)
[2024-05-23] MEDS: Miconazole Nitrate 2% Powder 85 GM Bottle 1 APPL TOPICAL ×2 (08:30→20:02)
--- NOTE | 2024-05-23 09:16 | HO.PM.IMPN ---
Subjective Subjective Date of Service: 05/23/24 Interval History: At his baseline, no new issues Physical Exam Vital Signs: Vital Signs: Last Vital Signs Temp 97.7 F 05/23/24 07:44 Pulse 60 05/23/24 07:44 Resp 16 05/23/24 07:44 BP 120/62 05/23/24 07:44 Pulse Ox 97 05/23/24 07:44 O2 Del Method Room Air 05/23/24 07:44 O2 Flow Rate 2 03/28/24 07:24 BMI result Body Mass Index 20.4 Const: Other: Essential unchanged Objective Data Active Medications Acetaminophen (Acetaminophen 325 Mg Tablet) 650 mg PO Q6H PRN PRN Reason: Pain, Mild (Pain Scale 1-3), fever or headache Last Admin: 05/02/24 13:31 Dose: 650 mg Al Hydroxide/Mg Hydroxide (Magnesium Hydrox/Alum Hydrox 30 Ml Oral.Susp) 30 ml PO Q6H PRN PRN Reason: Constipation Benzonatate (Benzonatate 100 Mg Capsule) 100 mg PO TID PRN PRN Reason: Cough Calcium Carbonate (Calcium Carbonate 750 Mg Tab.Chew) 750 mg PO Q4H PRN PRN Reason: Heartburn Clonidine (Clonidine 0.1 Mg Patch.Tdwk) 0.1 mg TRANSDERMA Tu@0900 [facility]; Protocol Last Admin: 05/19/24 08:32 Dose: 0.1 mg Documented By: LATRICIA Enoxaparin Sodium (Enoxaparin Sodium 40 Mg/0.4 Ml Syringe) 40 mg SUBCUT Q24H [facility] Last Admin: 05/22/24 17:02 Dose: 40 mg Documented By: RADHA Loperamide HCl (Loperamide Hcl 2 Mg Capsule) 2 mg PO Q4H PRN PRN Reason: Diarrhea Last Admin: 04/27/24 15:22 Dose: 2 mg Documented By: JESSICA Magnesium Hydroxide (Milk Of Magnesia 30 Ml Oral.Susp) 30 ml PO DAILY PRN PRN Reason: Constipation Melatonin (Melatonin 3 Mg Tablet) 6 mg PO BEDTIME PRN PRN Reason: Insomnia Last Admin: 04/29/24 19:24 Dose: 6 mg Miconazole Nitrate (Miconazole Nitrate 2% Powder 85 Gm Bottle) 1 appl TOPICAL BID [facility]; Protocol Last Admin: 05/23/24 08:30 Dose: 1 appl Documented By: FIONA Nicotine Polacrilex (Nicotine Polacrilex 2 Mg Gum) 4 mg BUCCAL Q2H PRN PRN Reason: Nicotine Cravings Ondansetron HCl (Ondansetron Hcl 4 Mg/2 Ml Vial) 4 mg IVPUSH Q8H PRN PRN Reason: Nausea and Vomiting Last Admin: 03/02/24 18:44 Dose: 4 mg Documented By: SEN Ondansetron HCl (Ondansetron Odt 4 Mg Tab.Rapdis) 4 mg TRANSLINGU Q6H PRN PRN Reason: Nausea and Vomiting Last Admin: 04/08/24 19:57 Dose: 4 mg Documented By: GERARDO-ZADRT Risperidone (Risperidone Oral Peg 1 Mg/Ml Solution) 0.5 mg PO BID [facility] PABLO Last Admin: 05/23/24 08:30 Dose: 0.5 mg Documented By: FIONA Trazodone HCl (Trazodone Hcl 25 Mg Halftab) 25 mg PO BEDTIME PRN PRN Reason: Insomnia Last Admin: 04/29/24 19:24 Dose: 25 mg Labs 05/21/24 08:15 05/21/24 08:15 Assessment and Plan (1) Cognitive and behavioral changes: Status: Acute Plan 83yo M with HTN, unspecified dementia; admitted to [facility] 02/13/24 for FTT, not taking meds or food; transferred to medicine 02/14/24. 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 Nate Genao and her phone number is [phone] to be contacted for any updates. Total time managing care of this patient today: 15 minutes. Quality Stroke Does the patient have a stroke diagnosis?: No VTE Prior VTE?: No VTE Risk Level:: Medical - moderate - high VTE Device Contraindication: Treatment Not Indicated VTE Drug Contraindication: N/A - Med Ordered
[2024-05-23] MEDS: Enoxaparin Sodium 40 MG/0.4 ML SYRINGE SUBCUT (15:27)
[2024-05-23 16:00] VITALS: BP 139/81; PULSE 68; RESP 18; TEMP 36.1; O2SAT 97
[2024-05-23 23:34] VITALS: BP 132/62; PULSE 57; RESP 18; TEMP 36.1; O2SAT 96
[2024-05-24] MEDS: risperiDONE Oral Sol 1 MG/ML SOLUTION 0.5 MG PO ×2 (07:52→21:00)
[2024-05-24] MEDS: Miconazole Nitrate 2% Powder 85 GM Bottle 1 APPL TOPICAL ×2 (07:53→21:00)
[2024-05-24 07:59] VITALS: BP 147/73; PULSE 56; RESP 16; TEMP 36.2; O2SAT 100
--- NOTE | 2024-05-24 09:31 | HO.PM.IMPN ---
Subjective Subjective Date of Service: 05/24/24 Interval History: At his baseline, no new issues no new issues reported Physical Exam Vital Signs: Vital Signs: Last Vital Signs Temp 97.2 F 05/24/24 07:59 Pulse 56 05/24/24 07:59 Resp 16 05/24/24 07:59 BP 147/73 H 05/24/24 07:59 Pulse Ox 100 05/24/24 07:59 O2 Del Method Room Air 05/24/24 07:59 O2 Flow Rate 2 03/28/24 07:24 BMI result Body Mass Index 20.4 Objective Data Active Medications Acetaminophen (Acetaminophen 325 Mg Tablet) 650 mg PO Q6H PRN PRN Reason: Pain, Mild (Pain Scale 1-3), fever or headache Last Admin: 05/02/24 13:31 Dose: 650 mg Al Hydroxide/Mg Hydroxide (Magnesium Hydrox/Alum Hydrox 30 Ml Oral.Susp) 30 ml PO Q6H PRN PRN Reason: Constipation Benzonatate (Benzonatate 100 Mg Capsule) 100 mg PO TID PRN PRN Reason: Cough Calcium Carbonate (Calcium Carbonate 750 Mg Tab.Chew) 750 mg PO Q4H PRN PRN Reason: Heartburn Clonidine (Clonidine 0.1 Mg Patch.Tdwk) 0.1 mg TRANSDERMA Tu@0900 [facility]; Protocol Last Admin: 05/19/24 08:32 Dose: 0.1 mg Documented By: LATRICIA Enoxaparin Sodium (Enoxaparin Sodium 40 Mg/0.4 Ml Syringe) 40 mg SUBCUT Q24H [facility] Last Admin: 05/23/24 15:27 Dose: 40 mg Documented By: FIONA Loperamide HCl (Loperamide Hcl 2 Mg Capsule) 2 mg PO Q4H PRN PRN Reason: Diarrhea Last Admin: 04/27/24 15:22 Dose: 2 mg Documented By: JESSICA Magnesium Hydroxide (Milk Of Magnesia 30 Ml Oral.Susp) 30 ml PO DAILY PRN PRN Reason: Constipation Melatonin (Melatonin 3 Mg Tablet) 6 mg PO BEDTIME PRN PRN Reason: Insomnia Last Admin: 04/29/24 19:24 Dose: 6 mg Miconazole Nitrate (Miconazole Nitrate 2% Powder 85 Gm Bottle) 1 appl TOPICAL BID [facility]; Protocol Last Admin: 05/24/24 07:53 Dose: 1 appl Documented By: FIONA Nicotine Polacrilex (Nicotine Polacrilex 2 Mg Gum) 4 mg BUCCAL Q2H PRN PRN Reason: Nicotine Cravings Ondansetron HCl (Ondansetron Hcl 4 Mg/2 Ml Vial) 4 mg IVPUSH Q8H PRN PRN Reason: Nausea and Vomiting Last Admin: 03/02/24 18:44 Dose: 4 mg Documented By: SEN Ondansetron HCl (Ondansetron Odt 4 Mg Tab.Rapdis) 4 mg TRANSLINGU Q6H PRN PRN Reason: Nausea and Vomiting Last Admin: 04/08/24 19:57 Dose: 4 mg Documented By: GERARDO-ZADRT Risperidone (Risperidone Oral Peg 1 Mg/Ml Solution) 0.5 mg PO BID [facility] PABLO Last Admin: 05/24/24 07:52 Dose: 0.5 mg Documented By: FIONA Trazodone HCl (Trazodone Hcl 25 Mg Halftab) 25 mg PO BEDTIME PRN PRN Reason: Insomnia Last Admin: 04/29/24 19:24 Dose: 25 mg Labs 05/21/24 08:15 05/21/24 08:15 Assessment and Plan (1) Cognitive and behavioral changes: Status: Acute Plan 83yo M with HTN, unspecified dementia; admitted to [facility] 02/13/24 for FTT, not taking meds or food; transferred to medicine 02/14/24. 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 Nate Genao and her phone number is [phone] to be contacted for any updates. Total time managing care of this patient today: 15 minutes. Quality Stroke Does the patient have a stroke diagnosis?: No VTE Prior VTE?: No VTE Risk Level:: Medical - moderate - high VTE Device Contraindication: Treatment Not Indicated VTE Drug Contraindication: N/A - Med Ordered
[2024-05-24] MEDS: Enoxaparin Sodium 40 MG/0.4 ML SYRINGE SUBCUT (15:08)
[2024-05-24 16:00] VITALS: BP 150/81; PULSE 100; RESP 18; TEMP 36.6; O2SAT 97
[2024-05-24 23:55] VITALS: BP 141/75; PULSE 67; RESP 18; TEMP 36.3; O2SAT 96
[2024-05-25 08:12] VITALS: BP 129/62; PULSE 63; RESP 12; TEMP 36.4; O2SAT 93
[2024-05-25] MEDS: risperiDONE Oral Sol 1 MG/ML SOLUTION 0.5 MG PO ×2 (08:24→21:11)
[2024-05-25] MEDS: Miconazole Nitrate 2% Powder 85 GM Bottle 1 APPL TOPICAL ×2 (08:24→21:10)
--- NOTE | 2024-05-25 09:40 | HO.PM.IMPN ---
Subjective Subjective Date of Service: 05/25/24 Interval History: At his baseline, no new issues no new issues reported Physical Exam Vital Signs: Vital Signs: Last Vital Signs Temp 97.6 F 05/25/24 08:12 Pulse 63 05/25/24 08:12 Resp 12 05/25/24 08:12 BP 129/62 05/25/24 08:12 Pulse Ox 93 05/25/24 08:12 O2 Del Method Room Air 05/25/24 08:12 O2 Flow Rate 2 03/28/24 07:24 BMI result Body Mass Index 20.4 Objective Data Active Medications Acetaminophen (Acetaminophen 325 Mg Tablet) 650 mg PO Q6H PRN PRN Reason: Pain, Mild (Pain Scale 1-3), fever or headache Last Admin: 05/02/24 13:31 Dose: 650 mg Al Hydroxide/Mg Hydroxide (Magnesium Hydrox/Alum Hydrox 30 Ml Oral.Susp) 30 ml PO Q6H PRN PRN Reason: Constipation Benzonatate (Benzonatate 100 Mg Capsule) 100 mg PO TID PRN PRN Reason: Cough Calcium Carbonate (Calcium Carbonate 750 Mg Tab.Chew) 750 mg PO Q4H PRN PRN Reason: Heartburn Clonidine (Clonidine 0.1 Mg Patch.Tdwk) 0.1 mg TRANSDERMA Tu@0900 [facility]; Protocol Last Admin: 05/19/24 08:32 Dose: 0.1 mg Documented By: LATRICIA Enoxaparin Sodium (Enoxaparin Sodium 40 Mg/0.4 Ml Syringe) 40 mg SUBCUT Q24H [facility] Last Admin: 05/24/24 15:08 Dose: 40 mg Documented By: FIONA Loperamide HCl (Loperamide Hcl 2 Mg Capsule) 2 mg PO Q4H PRN PRN Reason: Diarrhea Last Admin: 04/27/24 15:22 Dose: 2 mg Documented By: JESSICA Magnesium Hydroxide (Milk Of Magnesia 30 Ml Oral.Susp) 30 ml PO DAILY PRN PRN Reason: Constipation Melatonin (Melatonin 3 Mg Tablet) 6 mg PO BEDTIME PRN PRN Reason: Insomnia Last Admin: 04/29/24 19:24 Dose: 6 mg Miconazole Nitrate (Miconazole Nitrate 2% Powder 85 Gm Bottle) 1 appl TOPICAL BID [facility]; Protocol Last Admin: 05/25/24 08:24 Dose: 1 appl Documented By: CELINE Nicotine Polacrilex (Nicotine Polacrilex 2 Mg Gum) 4 mg BUCCAL Q2H PRN PRN Reason: Nicotine Cravings Ondansetron HCl (Ondansetron Hcl 4 Mg/2 Ml Vial) 4 mg IVPUSH Q8H PRN PRN Reason: Nausea and Vomiting Last Admin: 03/02/24 18:44 Dose: 4 mg Documented By: SEN Ondansetron HCl (Ondansetron Odt 4 Mg Tab.Rapdis) 4 mg TRANSLINGU Q6H PRN PRN Reason: Nausea and Vomiting Last Admin: 04/08/24 19:57 Dose: 4 mg Documented By: GERARDO-ZADRNeville Risperidone (Risperidone Oral Peg 1 Mg/Ml Solution) 0.5 mg PO BID JUAN PABLO Last Admin: 05/25/24 08:24 Dose: 0.5 mg Documented By: CELINE Trazodone HCl (Trazodone Hcl 25 Mg Halftab) 25 mg PO BEDTIME PRN PRN Reason: Insomnia Last Admin: 04/29/24 19:24 Dose: 25 mg Labs 05/21/24 08:15 05/21/24 08:15 Assessment and Plan (1) Cognitive and behavioral changes: Status: Acute Plan 83yo M with HTN, unspecified dementia; admitted to [facility] 02/13/24 for FTT, not taking meds or food; transferred to medicine 02/14/24. 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 Nate Genao and her phone number is [phone] to be contacted for any updates. Total time managing care of this patient today: 15 minutes. Quality Stroke Does the patient have a stroke diagnosis?: No VTE Prior VTE?: No VTE Risk Level:: Medical - moderate - high VTE Device Contraindication: Treatment Not Indicated VTE Drug Contraindication: N/A - Med Ordered
[2024-05-25 12:37] VITALS: BMI 19.5
--- NOTE | 2024-05-25 14:03 | MHC.CM.PN ---
EMR REVIEWED. PT/CM AWAITS CONSERVATOR TO MAKE FINANCIAL PLAN FOR FUNDING FOR LTC PLACEMENT.
[2024-05-25 15:48] VITALS: BP 145/71; PULSE 80; RESP 12; TEMP 37; O2SAT 97
[2024-05-25] MEDS: Enoxaparin Sodium 40 MG/0.4 ML SYRINGE SUBCUT (15:51)
[2024-05-25 23:27] VITALS: BP 124/67; PULSE 79; RESP 16; TEMP 36; O2SAT 98
[2024-05-26 07:23] VITALS: BP 132/63; PULSE 62; RESP 16; TEMP 36.2; O2SAT 98
[2024-05-26] MEDS: risperiDONE Oral Sol 1 MG/ML SOLUTION 0.5 MG PO ×2 (08:54→19:54)
[2024-05-26] MEDS: Miconazole Nitrate 2% Powder 85 GM Bottle 1 APPL TOPICAL ×2 (08:55→19:55)
[2024-05-26] MEDS: cloNIDine 0.1 MG PATCH.TDWK TRANSDERMA (09:13)
--- NOTE | 2024-05-26 13:48 | HO.PM.IMPN ---
Subjective Subjective Date of Service: 05/26/24 Interval History: seems baseline denies new c/o Physical Exam Vital Signs: Vital Signs: Last Vital Signs Temp 97.2 F 05/26/24 07:23 Pulse 62 05/26/24 07:23 Resp 16 05/26/24 07:23 BP 132/63 05/26/24 07:23 Pulse Ox 98 05/26/24 07:23 O2 Del Method Room Air 05/26/24 07:23 O2 Flow Rate 2 03/28/24 07:24 BMI result Body Mass Index 19.5 Essential unchanged. Cardiovascular : rrr,s1s2 heard. Skin : Warm, Dry Neurological : Alert & disoriented to place and time, No focal deficit Objective Data Active Medications Acetaminophen (Acetaminophen 325 Mg Tablet) 650 mg PO Q6H PRN PRN Reason: Pain, Mild (Pain Scale 1-3), fever or headache Last Admin: 05/02/24 13:31 Dose: 650 mg Al Hydroxide/Mg Hydroxide (Magnesium Hydrox/Alum Hydrox 30 Ml Oral.Susp) 30 ml PO Q6H PRN PRN Reason: Constipation Benzonatate (Benzonatate 100 Mg Capsule) 100 mg PO TID PRN PRN Reason: Cough Calcium Carbonate (Calcium Carbonate 750 Mg Tab.Chew) 750 mg PO Q4H PRN PRN Reason: Heartburn Clonidine (Clonidine 0.1 Mg Patch.Tdwk) 0.1 mg TRANSDERMA Tu@0900 [facility]; Protocol Last Admin: 05/26/24 09:13 Dose: 0.1 mg Documented By: CELINE Enoxaparin Sodium (Enoxaparin Sodium 40 Mg/0.4 Ml Syringe) 40 mg SUBCUT Q24H [facility] Last Admin: 05/25/24 15:51 Dose: 40 mg Documented By: CELINE Loperamide HCl (Loperamide Hcl 2 Mg Capsule) 2 mg PO Q4H PRN PRN Reason: Diarrhea Last Admin: 04/27/24 15:22 Dose: 2 mg Documented By: JESSICA Magnesium Hydroxide (Milk Of Magnesia 30 Ml Oral.Susp) 30 ml PO DAILY PRN PRN Reason: Constipation Melatonin (Melatonin 3 Mg Tablet) 6 mg PO BEDTIME PRN PRN Reason: Insomnia Last Admin: 04/29/24 19:24 Dose: 6 mg Miconazole Nitrate (Miconazole Nitrate 2% Powder 85 Gm Bottle) 1 appl TOPICAL BID [facility]; Protocol Last Admin: 05/26/24 08:55 Dose: 1 appl Documented By: CELINE Nicotine Polacrilex (Nicotine Polacrilex 2 Mg Gum) 4 mg BUCCAL Q2H PRN PRN Reason: Nicotine Cravings Ondansetron HCl (Ondansetron Hcl 4 Mg/2 Ml Vial) 4 mg IVPUSH Q8H PRN PRN Reason: Nausea and Vomiting Last Admin: 03/02/24 18:44 Dose: 4 mg Documented By: SEN Ondansetron HCl (Ondansetron Odt 4 Mg Tab.Rapdis) 4 mg TRANSLINGU Q6H PRN PRN Reason: Nausea and Vomiting Last Admin: 04/08/24 19:57 Dose: 4 mg Documented By: GERARDO-ZADRNeville Risperidone (Risperidone Oral Peg 1 Mg/Ml Solution) 0.5 mg PO BID [facility] Last Admin: 05/26/24 08:54 Dose: 0.5 mg Documented By: CELINE Comments: Trazodone HCl (Trazodone Hcl 25 Mg Halftab) 25 mg PO BEDTIME PRN PRN Reason: Insomnia Last Admin: 04/29/24 19:24 Dose: 25 mg Labs 05/21/24 08:15 05/21/24 08:15 Assessment and Plan (1) Cognitive and behavioral changes: Status: Acute Assessment and Plan: 83M PMH htn, unspecified dementia, admitted to [facility] 02/13/24 for FTT, not taking meds or food, transfered to medicine 02/14/24. 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 CJD ruled out EEG showing general slowing but no seizure disorder DIRECTOR OF SAFETY appreciated, NDD3 solids, thin liquids bilateral conjunctivitis completed treatment Hypertension Transdermal clonidine Amlodipine Mood disorder hold Risperidone, trazodone for today DVT prophylaxis with Lovenox Full Code reason for continued hospitalization: Safe dispo The patient HCP is his step-daughter Alcides can be reached on [phone] Patient sister name is Dr. Nate Genao and her phone number is [phone] to be contacted for any updates. Quality Stroke Does the patient have a stroke diagnosis?: No VTE Prior VTE?: No VTE Risk Level:: Medical - moderate - high VTE Device Contraindication: Treatment Not Indicated VTE Drug Contraindication: N/A - Med Ordered
[2024-05-26 15:22] VITALS: BP 136/65; PULSE 79; RESP 20; TEMP 36.6; O2SAT 96
[2024-05-26] MEDS: Enoxaparin Sodium 40 MG/0.4 ML SYRINGE SUBCUT (15:39)
[2024-05-26 23:49] VITALS: BP 124/60; PULSE 84; RESP 16; TEMP 36.3; O2SAT 93
[2024-05-27] MEDS: Miconazole Nitrate 2% Powder 85 GM Bottle 1 APPL TOPICAL ×2 (06:49→19:49)
[2024-05-27] MEDS: risperiDONE Oral Sol 1 MG/ML SOLUTION 0.5 MG PO ×2 (06:49→19:47)
[2024-05-27 07:25] VITALS: BP 139/82; PULSE 66; RESP 16; TEMP 36.1; O2SAT 98
--- NOTE | 2024-05-27 13:37 | HO.PM.IMPN ---
Subjective Subjective Date of Service: 05/27/24 Interval History: seems baseline denies new c/o Review of Systems as above. Physical Exam Vital Signs: Vital Signs: Last Vital Signs Temp 97.0 F 05/27/24 07:25 Pulse 66 05/27/24 07:25 Resp 16 05/27/24 07:25 BP 139/82 05/27/24 07:25 Pulse Ox 98 05/27/24 07:25 O2 Del Method Room Air 05/27/24 07:25 O2 Flow Rate 2 03/28/24 07:24 BMI result Body Mass Index 19.5 Essential unchanged. Cardiovascular : rrr,s1s2 heard. Skin : Warm, Dry Neurological : Alert & disoriented to place and time, No focal deficit Objective Data Active Medications Acetaminophen (Acetaminophen 325 Mg Tablet) 650 mg PO Q6H PRN PRN Reason: Pain, Mild (Pain Scale 1-3), fever or headache Last Admin: 05/02/24 13:31 Dose: 650 mg Al Hydroxide/Mg Hydroxide (Magnesium Hydrox/Alum Hydrox 30 Ml Oral.Susp) 30 ml PO Q6H PRN PRN Reason: Constipation Benzonatate (Benzonatate 100 Mg Capsule) 100 mg PO TID PRN PRN Reason: Cough Calcium Carbonate (Calcium Carbonate 750 Mg Tab.Chew) 750 mg PO Q4H PRN PRN Reason: Heartburn Clonidine (Clonidine 0.1 Mg Patch.Tdwk) 0.1 mg TRANSDERMA Tu@0900 [facility]; Protocol Last Admin: 05/26/24 09:13 Dose: 0.1 mg Documented By: CELINE Enoxaparin Sodium (Enoxaparin Sodium 40 Mg/0.4 Ml Syringe) 40 mg SUBCUT Q24H [facility] Last Admin: 05/26/24 15:39 Dose: 40 mg Documented By: CELINE Loperamide HCl (Loperamide Hcl 2 Mg Capsule) 2 mg PO Q4H PRN PRN Reason: Diarrhea Last Admin: 04/27/24 15:22 Dose: 2 mg Documented By: JESSICA Magnesium Hydroxide (Milk Of Magnesia 30 Ml Oral.Susp) 30 ml PO DAILY PRN PRN Reason: Constipation Melatonin (Melatonin 3 Mg Tablet) 6 mg PO BEDTIME PRN PRN Reason: Insomnia Last Admin: 04/29/24 19:24 Dose: 6 mg Miconazole Nitrate (Miconazole Nitrate 2% Powder 85 Gm Bottle) 1 appl TOPICAL BID [facility]; Protocol Last Admin: 05/27/24 06:49 Dose: 1 appl Documented By: THOM Nicotine Polacrilex (Nicotine Polacrilex 2 Mg Gum) 4 mg BUCCAL Q2H PRN PRN Reason: Nicotine Cravings Ondansetron HCl (Ondansetron Hcl 4 Mg/2 Ml Vial) 4 mg IVPUSH Q8H PRN PRN Reason: Nausea and Vomiting Last Admin: 03/02/24 18:44 Dose: 4 mg Documented By: SEN Ondansetron HCl (Ondansetron Odt 4 Mg Tab.Rapdis) 4 mg TRANSLINGU Q6H PRN PRN Reason: Nausea and Vomiting Last Admin: 04/08/24 19:57 Dose: 4 mg Documented By: GERARDO-ZADRNeville Risperidone (Risperidone Oral Peg 1 Mg/Ml Solution) 0.5 mg PO BID [facility] Last Admin: 05/27/24 06:49 Dose: 0.5 mg Documented By: THOM Trazodone HCl (Trazodone Hcl 25 Mg Halftab) 25 mg PO BEDTIME PRN PRN Reason: Insomnia Last Admin: 04/29/24 19:24 Dose: 25 mg Labs 05/21/24 08:15 05/21/24 08:15 Assessment and Plan (1) Cognitive and behavioral changes: Status: Acute Assessment and Plan: 83M PMH htn, unspecified dementia, admitted to [facility] 02/13/24 for FTT, not taking meds or food, transfered to medicine 02/14/24. 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 CJD ruled out EEG showing general slowing but no seizure disorder GENERAL MANAGER LAND DEPARTMENT appreciated, NDD3 solids, thin liquids bilateral conjunctivitis completed treatment Hypertension Transdermal clonidine Amlodipine Mood disorder hold Risperidone, trazodone for today DVT prophylaxis with Lovenox Full Code reason for continued hospitalization: Safe dispo The patient HCP is his step-daughter Alcides can be reached on [phone] Patient sister name is Dr. Nate Genao and her phone number is [phone] to be contacted for any updates. Quality Stroke Does the patient have a stroke diagnosis?: No VTE Prior VTE?: No VTE Risk Level:: Medical - moderate - high VTE Device Contraindication: Treatment Not Indicated VTE Drug Contraindication: N/A - Med Ordered
--- NOTE | 2024-05-27 14:31 | MHC.CM.PN ---
CM CONTINUES TO AWAIT [employer] TO COMPLETE FINANCIAL INVESTIGATION SO PAYER SOURCE CAN BE DETERMINED FOR PLACEMENT
[2024-05-27 15:07] VITALS: BP 142/78; PULSE 97; RESP 16; TEMP 36.7; O2SAT 95
[2024-05-27] MEDS: Enoxaparin Sodium 40 MG/0.4 ML SYRINGE SUBCUT (15:59)
[2024-05-27 23:29] VITALS: BP 131/70; PULSE 68; RESP 16; TEMP 36.3; O2SAT 98
[2024-05-28 07:37] VITALS: BP 127/59; PULSE 62; RESP 16; TEMP 36.3; O2SAT 93
[2024-05-28] MEDS: Miconazole Nitrate 2% Powder 85 GM Bottle 1 APPL TOPICAL ×2 (08:53→21:03)
[2024-05-28] MEDS: risperiDONE Oral Sol 1 MG/ML SOLUTION 0.5 MG PO ×2 (08:53→21:02)
[2024-05-28 15:13] VITALS: BP 138/71; PULSE 71; RESP 16; TEMP 36.3; O2SAT 94
[2024-05-28] MEDS: Enoxaparin Sodium 40 MG/0.4 ML SYRINGE SUBCUT (15:50)
--- NOTE | 2024-05-28 17:03 | P.PNIM_ITS ---
Subjective Subjective Date of Service: 05/28/24 Interval History: seems baseline denies new c/o Review of Systems as above. Physical Exam 2 Vital Signs: Vital Signs: Last Vital Signs Temp 97.4 F 05/28/24 15:13 Pulse 71 05/28/24 15:13 Resp 16 05/28/24 15:13 BP 138/71 05/28/24 15:13 Pulse Ox 94 05/28/24 15:13 O2 Del Method Room Air 05/28/24 15:13 O2 Flow Rate 2 03/28/24 07:24 BMI result Body Mass Index 19.5 Essential unchanged. Cardiovascular : rrr,s1s2 heard. Skin : Warm, Dry Neurological : Alert & disoriented to place and time, No focal deficit Objective Data Active Medications Acetaminophen (Acetaminophen 325 Mg Tablet) 650 mg PO Q6H PRN PRN Reason: Pain, Mild (Pain Scale 1-3), fever or headache Last Admin: 05/02/24 13:31 Dose: 650 mg Al Hydroxide/Mg Hydroxide (Magnesium Hydrox/Alum Hydrox 30 Ml Oral.Susp) 30 ml PO Q6H PRN PRN Reason: Constipation Benzonatate (Benzonatate 100 Mg Capsule) 100 mg PO TID PRN PRN Reason: Cough Calcium Carbonate (Calcium Carbonate 750 Mg Tab.Chew) 750 mg PO Q4H PRN PRN Reason: Heartburn Clonidine (Clonidine 0.1 Mg Patch.Tdwk) 0.1 mg TRANSDERMA Tu@0900 [facility]; Protocol Last Admin: 05/26/24 09:13 Dose: 0.1 mg Documented By: CELINE Enoxaparin Sodium (Enoxaparin Sodium 40 Mg/0.4 Ml Syringe) 40 mg SUBCUT Q24H [facility] Last Admin: 05/28/24 15:50 Dose: 40 mg Documented By: JESSICA Loperamide HCl (Loperamide Hcl 2 Mg Capsule) 2 mg PO Q4H PRN PRN Reason: Diarrhea Last Admin: 04/27/24 15:22 Dose: 2 mg Documented By: JESSICA Magnesium Hydroxide (Milk Of Magnesia 30 Ml Oral.Susp) 30 ml PO DAILY PRN PRN Reason: Constipation Melatonin (Melatonin 3 Mg Tablet) 6 mg PO BEDTIME PRN PRN Reason: Insomnia Last Admin: 04/29/24 19:24 Dose: 6 mg Miconazole Nitrate (Miconazole Nitrate 2% Powder 85 Gm Bottle) 1 appl TOPICAL BID [facility]; Protocol Last Admin: 05/28/24 08:53 Dose: 1 appl Documented By: JESSICA Nicotine Polacrilex (Nicotine Polacrilex 2 Mg Gum) 4 mg BUCCAL Q2H PRN PRN Reason: Nicotine Cravings Ondansetron HCl (Ondansetron Hcl 4 Mg/2 Ml Vial) 4 mg IVPUSH Q8H PRN PRN Reason: Nausea and Vomiting Last Admin: 03/02/24 18:44 Dose: 4 mg Documented By: SEN Ondansetron HCl (Ondansetron Odt 4 Mg Tab.Rapdis) 4 mg TRANSLINGU Q6H PRN PRN Reason: Nausea and Vomiting Last Admin: 04/08/24 19:57 Dose: 4 mg Documented By: GERARDO-ZADRNeville Risperidone (Risperidone Oral Peg 1 Mg/Ml Solution) 0.5 mg PO BID [facility] Last Admin: 05/28/24 08:53 Dose: 0.5 mg Documented By: JESSICA Trazodone HCl (Trazodone Hcl 25 Mg Halftab) 25 mg PO BEDTIME PRN PRN Reason: Insomnia Last Admin: 04/29/24 19:24 Dose: 25 mg Labs 05/21/24 08:15 05/21/24 08:15 Assessment and Plan (1) Cognitive and behavioral changes: Status: Acute Assessment and Plan: 83M PMH htn, unspecified dementia, admitted to [facility] 02/13/24 for FTT, not taking meds or food, transfered to medicine 02/14/24. 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 CJD ruled out EEG showing general slowing but no seizure disorder HEAD OF OPERATION AND LOGISTICS appreciated, NDD3 solids, thin liquids bilateral conjunctivitis completed treatment Hypertension Transdermal clonidine Amlodipine Mood disorder hold Risperidone, trazodone for today DVT prophylaxis with Lovenox Full Code reason for continued hospitalization: Safe dispo The patient HCP is his step-daughter Alcides can be reached on [phone] Patient sister name is Dr. Nate Genao and her phone number is [phone] to be contacted for any updates. Quality Stroke Does the patient have a stroke diagnosis?: No VTE Prior VTE?: No VTE Risk Level:: Medical - moderate - high VTE Device Contraindication: Treatment Not Indicated VTE Drug Contraindication: N/A - Med Ordered
[2024-05-29] VITALS: BP 145/73; PULSE 73; RESP 16; TEMP 36.1; O2SAT 96
--- NOTE | 2024-05-29 01:43 | PC.NURSE ---
Pt seen on bed asleep, awaken when spoken to, confused , Vitals ok, repo on bed, meds given, spits out some of it, redirected, bed alarm.
[2024-05-29] MEDS: risperiDONE Oral Sol 1 MG/ML SOLUTION 0.5 MG PO ×2 (07:01→19:33)
[2024-05-29] MEDS: Miconazole Nitrate 2% Powder 85 GM Bottle 1 APPL TOPICAL ×2 (07:02→19:34)
[2024-05-29 08:00] VITALS: BP 146/69; PULSE 64; RESP 16; TEMP 36.3; O2SAT 95
[2024-05-29 12:26] VITALS: BMI 19.5
--- NOTE | 2024-05-29 12:35 | MHC.CM.PN ---
CM CONTINUES TO AWAIT [employer] TO DETERMINE PAYER SOURCE FOR 3RD MATE PLACEMENT. CM FOLLOWING
--- NOTE | 2024-05-29 12:38 | MHC.CLN ---
NUTRITION DIET=REGULAR, CHOPPED. SUPERVISE AT MEALS. CONTINUE SUPPLEMENTS: MAGIC CUP TID (870 KCALS, 27 G PROTEIN) AND ENSURE TID (1050 KCALS, 60 G PROTEIN). VARIABLE INTAKE AT MEALS. DOES ACCEPT MAGIC CUP. DISLIKES STRAWBERRY ENSURE (DINING SERVICES AWARE). 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 NOW WITH SIGNIFICANT WEIGHT LOSS X 90 DAYS, -16.8%. CONTINUE CURRENT DIET AND SUPPLEMENTS AND ENCOURAGE PO INTAKE ABLE. SEE CLINICAL NUTRITION ASSESSMENT 05/29/24.
--- NOTE | 2024-05-29 15:04 | HO.PM.IMPN ---
Subjective Subjective Date of Service: 05/29/24 Interval History: seems baseline denies new c/o Review of Systems Review of Systems: Yes all other systems are reviewed and are negative Physical Exam Vital Signs: Vital Signs: Last Vital Signs Temp 97.3 F 05/29/24 08:00 Pulse 64 05/29/24 08:00 Resp 16 05/29/24 08:00 BP 146/69 H 05/29/24 08:00 Pulse Ox 95 05/29/24 08:00 O2 Del Method Room Air 05/29/24 08:00 O2 Flow Rate 2 03/28/24 07:24 BMI result Body Mass Index 19.5 Essential unchanged. Cardiovascular : rrr,s1s2 heard. Skin : Warm, Dry Neurological : Alert & disoriented to place and time, No focal defi Objective Data Active Medications Acetaminophen (Acetaminophen 325 Mg Tablet) 650 mg PO Q6H PRN PRN Reason: Pain, Mild (Pain Scale 1-3), fever or headache Last Admin: 05/02/24 13:31 Dose: 650 mg Al Hydroxide/Mg Hydroxide (Magnesium Hydrox/Alum Hydrox 30 Ml Oral.Susp) 30 ml PO Q6H PRN PRN Reason: Constipation Benzonatate (Benzonatate 100 Mg Capsule) 100 mg PO TID PRN PRN Reason: Cough Calcium Carbonate (Calcium Carbonate 750 Mg Tab.Chew) 750 mg PO Q4H PRN PRN Reason: Heartburn Clonidine (Clonidine 0.1 Mg Patch.Tdwk) 0.1 mg TRANSDERMA Tu@0900 [facility]; Protocol Last Admin: 05/26/24 09:13 Dose: 0.1 mg Documented By: CELINE Enoxaparin Sodium (Enoxaparin Sodium 40 Mg/0.4 Ml Syringe) 40 mg SUBCUT Q24H [facility] Last Admin: 05/28/24 15:50 Dose: 40 mg Documented By: JESSICA Loperamide HCl (Loperamide Hcl 2 Mg Capsule) 2 mg PO Q4H PRN PRN Reason: Diarrhea Last Admin: 04/27/24 15:22 Dose: 2 mg Documented By: JESSICA Magnesium Hydroxide (Milk Of Magnesia 30 Ml Oral.Susp) 30 ml PO DAILY PRN PRN Reason: Constipation Melatonin (Melatonin 3 Mg Tablet) 6 mg PO BEDTIME PRN PRN Reason: Insomnia Last Admin: 04/29/24 19:24 Dose: 6 mg Miconazole Nitrate (Miconazole Nitrate 2% Powder 85 Gm Bottle) 1 appl TOPICAL BID [facility]; Protocol Last Admin: 05/29/24 07:02 Dose: 1 appl Documented By: THOM Nicotine Polacrilex (Nicotine Polacrilex 2 Mg Gum) 4 mg BUCCAL Q2H PRN PRN Reason: Nicotine Cravings Ondansetron HCl (Ondansetron Hcl 4 Mg/2 Ml Vial) 4 mg IVPUSH Q8H PRN PRN Reason: Nausea and Vomiting Last Admin: 03/02/24 18:44 Dose: 4 mg Documented By: SEN Ondansetron HCl (Ondansetron Odt 4 Mg Tab.Rapdis) 4 mg TRANSLINGU Q6H PRN PRN Reason: Nausea and Vomiting Last Admin: 04/08/24 19:57 Dose: 4 mg Documented By: GERARDO-ZADRT Risperidone (Risperidone Oral Peg 1 Mg/Ml Solution) 0.5 mg PO BID [facility] Last Admin: 05/29/24 07:01 Dose: 0.5 mg Documented By: THOM Trazodone HCl (Trazodone Hcl 25 Mg Halftab) 25 mg PO BEDTIME PRN PRN Reason: Insomnia Last Admin: 04/29/24 19:24 Dose: 25 mg Labs 05/21/24 08:15 05/21/24 08:15 Assessment and Plan (1) Cognitive and behavioral changes: Status: Acute Assessment and Plan: 83M PMH htn, unspecified dementia, admitted to [facility] 02/13/24 for FTT, not taking meds or food, transfered to medicine 02/14/24. 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 CJD ruled out EEG showing general slowing but no seizure disorder DIESEL SERVICE TECHNICIAN appreciated, NDD3 solids, thin liquids bilateral conjunctivitis completed treatment Hypertension Transdermal clonidine Amlodipine Mood disorder hold Risperidone, trazodone for today DVT prophylaxis with Lovenox Full Code reason for continued hospitalization: Safe dispo The patient HCP is his step-daughter Alcides can be reached on [phone] Patient sister name is Dr. Nate Genao and her phone number is [phone] to be contacted for any updates. Quality Stroke Does the patient have a stroke diagnosis?: No VTE Prior VTE?: No VTE Risk Level:: Medical - moderate - high VTE Device Contraindication: Treatment Not Indicated VTE Drug Contraindication: N/A - Med Ordered
[2024-05-29] MEDS: Enoxaparin Sodium 40 MG/0.4 ML SYRINGE SUBCUT (15:05)
[2024-05-29 16:00] VITALS: BP 156/79; PULSE 99; RESP 20; TEMP 36.5; O2SAT 96
[2024-05-29 23:48] VITALS: BP 142/79; PULSE 65; RESP 18; TEMP 36.3; O2SAT 97
[2024-05-30 07:09] VITALS: BP 148/69; PULSE 60; RESP 14; TEMP 36.2; O2SAT 98
[2024-05-30] MEDS: risperiDONE Oral Sol 1 MG/ML SOLUTION 0.5 MG PO ×2 (09:16→19:05)
[2024-05-30] MEDS: Miconazole Nitrate 2% Powder 85 GM Bottle 1 APPL TOPICAL ×2 (09:20→19:05)
--- NOTE | 2024-05-30 11:53 | HO.PM.IMPN ---
Subjective Subjective Date of Service: 05/30/24 Interval History: seems baseline denies new c/o Review of Systems Review of Systems: Yes all other systems are reviewed and are negative Physical Exam Vital Signs: Vital Signs: Last Vital Signs Temp 97.1 F 05/30/24 07:09 Pulse 60 05/30/24 07:09 Resp 14 05/30/24 07:09 BP 148/69 H 05/30/24 07:09 Pulse Ox 98 05/30/24 07:09 O2 Del Method Room Air 05/30/24 07:09 O2 Flow Rate 2 03/28/24 07:24 BMI result Body Mass Index 19.5 Essential unchanged. Cardiovascular : rrr,s1s2 heard. Skin : Warm, Dry Neurological : Alert & disoriented to place and time, No focal deficiency Objective Data Active Medications Acetaminophen (Acetaminophen 325 Mg Tablet) 650 mg PO Q6H PRN PRN Reason: Pain, Mild (Pain Scale 1-3), fever or headache Last Admin: 05/02/24 13:31 Dose: 650 mg Al Hydroxide/Mg Hydroxide (Magnesium Hydrox/Alum Hydrox 30 Ml Oral.Susp) 30 ml PO Q6H PRN PRN Reason: Constipation Benzonatate (Benzonatate 100 Mg Capsule) 100 mg PO TID PRN PRN Reason: Cough Calcium Carbonate (Calcium Carbonate 750 Mg Tab.Chew) 750 mg PO Q4H PRN PRN Reason: Heartburn Clonidine (Clonidine 0.1 Mg Patch.Tdwk) 0.1 mg TRANSDERMA Tu@0900 [facility]; Protocol Last Admin: 05/26/24 09:13 Dose: 0.1 mg Documented By: CELINE Enoxaparin Sodium (Enoxaparin Sodium 40 Mg/0.4 Ml Syringe) 40 mg SUBCUT Q24H [facility] Last Admin: 05/29/24 15:05 Dose: 40 mg Documented By: TAWNYA Loperamide HCl (Loperamide Hcl 2 Mg Capsule) 2 mg PO Q4H PRN PRN Reason: Diarrhea Last Admin: 04/27/24 15:22 Dose: 2 mg Documented By: JESSICA Magnesium Hydroxide (Milk Of Magnesia 30 Ml Oral.Susp) 30 ml PO DAILY PRN PRN Reason: Constipation Melatonin (Melatonin 3 Mg Tablet) 6 mg PO BEDTIME PRN PRN Reason: Insomnia Last Admin: 04/29/24 19:24 Dose: 6 mg Miconazole Nitrate (Miconazole Nitrate 2% Powder 85 Gm Bottle) 1 appl TOPICAL BID [facility]; Protocol Last Admin: 05/30/24 09:20 Dose: 1 appl Documented By: IRWIN Nicotine Polacrilex (Nicotine Polacrilex 2 Mg Gum) 4 mg BUCCAL Q2H PRN PRN Reason: Nicotine Cravings Ondansetron HCl (Ondansetron Hcl 4 Mg/2 Ml Vial) 4 mg IVPUSH Q8H PRN PRN Reason: Nausea and Vomiting Last Admin: 03/02/24 18:44 Dose: 4 mg Documented By: SEN Ondansetron HCl (Ondansetron Odt 4 Mg Tab.Rapdis) 4 mg TRANSLINGU Q6H PRN PRN Reason: Nausea and Vomiting Last Admin: 04/08/24 19:57 Dose: 4 mg Documented By: GERARDO-ZADRT Risperidone (Risperidone Oral Peg 1 Mg/Ml Solution) 0.5 mg PO BID [facility] Last Admin: 05/30/24 09:16 Dose: 0.5 mg Documented By: IRWIN Trazodone HCl (Trazodone Hcl 25 Mg Halftab) 25 mg PO BEDTIME PRN PRN Reason: Insomnia Last Admin: 04/29/24 19:24 Dose: 25 mg Labs 05/21/24 08:15 05/21/24 08:15 Assessment and Plan (1) Cognitive and behavioral changes: Status: Acute Assessment and Plan: 83M PMH htn, unspecified dementia, admitted to [facility] 02/13/24 for FTT, not taking meds or food, transfered to medicine 02/14/24. 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 CJD ruled out EEG showing general slowing but no seizure disorder BULB BRANDER appreciated, NDD3 solids, thin liquids bilateral conjunctivitis completed treatment Hypertension Transdermal clonidine Amlodipine Mood disorder hold Risperidone, trazodone for today DVT prophylaxis with Lovenox Full Code reason for continued hospitalization: Safe dispo The patient HCP is his step-daughter Alcides can be reached on [phone] Patient sister name is Dr. Nate Genao and her phone number is [phone] to be contacted for any updates. Quality Stroke Does the patient have a stroke diagnosis?: No VTE Prior VTE?: No VTE Risk Level:: Medical - moderate - high VTE Device Contraindication: Treatment Not Indicated VTE Drug Contraindication: N/A - Med Ordered
[2024-05-30 15:14] VITALS: BP 158/81; PULSE 83; RESP 16; TEMP 36.4; O2SAT 95
[2024-05-30] MEDS: Enoxaparin Sodium 40 MG/0.4 ML SYRINGE SUBCUT (15:15)
[2024-05-30 23:46] VITALS: BP 129/64; PULSE 61; RESP 18; TEMP 36.8; O2SAT 96
[2024-05-31 07:46] VITALS: BP 157/74; PULSE 70; RESP 16; TEMP 36.8; O2SAT 96
[2024-05-31] MEDS: risperiDONE Oral Sol 1 MG/ML SOLUTION 0.5 MG PO (09:07)
[2024-05-31] MEDS: Miconazole Nitrate 2% Powder 85 GM Bottle 1 APPL TOPICAL ×2 (09:09→19:59)
--- NOTE | 2024-05-31 14:34 | HO.PM.IMPN ---
Subjective Subjective Date of Service: 05/31/24 Interval History: seems baseline denies new c/o Review of Systems Review of Systems: Yes all other systems are reviewed and are negative Physical Exam Vital Signs: Vital Signs: Last Vital Signs Temp 98.2 F 05/31/24 07:46 Pulse 70 05/31/24 07:46 Resp 16 05/31/24 07:46 BP 157/74 H 05/31/24 07:46 Pulse Ox 96 05/31/24 07:46 O2 Del Method Room Air 05/31/24 07:46 O2 Flow Rate 2 03/28/24 07:24 BMI result Body Mass Index 19.5 Essential unchanged. Cardiovascular : rrr,s1s2 heard. Skin : Warm, Dry Neurological : Alert & disoriented to place and time, No focal deficiency Objective Data Active Medications Acetaminophen (Acetaminophen 325 Mg Tablet) 650 mg PO Q6H PRN PRN Reason: Pain, Mild (Pain Scale 1-3), fever or headache Last Admin: 05/02/24 13:31 Dose: 650 mg Al Hydroxide/Mg Hydroxide (Magnesium Hydrox/Alum Hydrox 30 Ml Oral.Susp) 30 ml PO Q6H PRN PRN Reason: Constipation Benzonatate (Benzonatate 100 Mg Capsule) 100 mg PO TID PRN PRN Reason: Cough Calcium Carbonate (Calcium Carbonate 750 Mg Tab.Chew) 750 mg PO Q4H PRN PRN Reason: Heartburn Clonidine (Clonidine 0.1 Mg Patch.Tdwk) 0.1 mg TRANSDERMA Tu@0900 [facility]; Protocol Last Admin: 05/26/24 09:13 Dose: 0.1 mg Documented By: CELINE Enoxaparin Sodium (Enoxaparin Sodium 40 Mg/0.4 Ml Syringe) 40 mg SUBCUT Q24H [facility] Last Admin: 05/30/24 15:15 Dose: 40 mg Documented By: IRWIN Loperamide HCl (Loperamide Hcl 2 Mg Capsule) 2 mg PO Q4H PRN PRN Reason: Diarrhea Last Admin: 04/27/24 15:22 Dose: 2 mg Documented By: JESSICA Magnesium Hydroxide (Milk Of Magnesia 30 Ml Oral.Susp) 30 ml PO DAILY PRN PRN Reason: Constipation Melatonin (Melatonin 3 Mg Tablet) 6 mg PO BEDTIME PRN PRN Reason: Insomnia Last Admin: 04/29/24 19:24 Dose: 6 mg Miconazole Nitrate (Miconazole Nitrate 2% Powder 85 Gm Bottle) 1 appl TOPICAL BID [facility]; Protocol Last Admin: 05/31/24 09:09 Dose: 1 appl Documented By: IRWIN Nicotine Polacrilex (Nicotine Polacrilex 2 Mg Gum) 4 mg BUCCAL Q2H PRN PRN Reason: Nicotine Cravings Ondansetron HCl (Ondansetron Hcl 4 Mg/2 Ml Vial) 4 mg IVPUSH Q8H PRN PRN Reason: Nausea and Vomiting Last Admin: 03/02/24 18:44 Dose: 4 mg Documented By: SEN Ondansetron HCl (Ondansetron Odt 4 Mg Tab.Rapdis) 4 mg TRANSLINGU Q6H PRN PRN Reason: Nausea and Vomiting Last Admin: 04/08/24 19:57 Dose: 4 mg Documented By: GERARDO-ZADRT Risperidone (Risperidone Oral Peg 1 Mg/Ml Solution) 0.5 mg PO BID [facility] Last Admin: 05/31/24 09:07 Dose: 0.5 mg Documented By: IRWIN Trazodone HCl (Trazodone Hcl 25 Mg Halftab) 25 mg PO BEDTIME PRN PRN Reason: Insomnia Last Admin: 04/29/24 19:24 Dose: 25 mg Labs 05/21/24 08:15 05/21/24 08:15 Assessment and Plan (1) Cognitive and behavioral changes: Status: Acute Assessment and Plan: 83M PMH htn, unspecified dementia, admitted to [facility] 02/13/24 for FTT, not taking meds or food, transfered to medicine 02/14/24. 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 Nate Genao and her phone number is [phone] to be contacted for any updates. Quality Stroke Does the patient have a stroke diagnosis?: No VTE Prior VTE?: No VTE Risk Level:: Medical - moderate - high VTE Device Contraindication: Treatment Not Indicated VTE Drug Contraindication: N/A - Med Ordered
[2024-05-31 15:45] VITALS: BP 135/78; PULSE 72; RESP 18; TEMP 36.4; O2SAT 96
[2024-05-31] MEDS: Enoxaparin Sodium 40 MG/0.4 ML SYRINGE SUBCUT (16:56)
[2024-05-31 23:51] VITALS: BP 138/68; PULSE 62; RESP 18; TEMP 36.7; O2SAT 97
[2024-06-01 05:21] VITALS: RESP 16
[2024-06-01 08:00] VITALS: BP 136/70; PULSE 71; RESP 18; TEMP 36.2; O2SAT 100
--- NOTE | 2024-06-01 09:29 | MHC.CM.PN ---
This communications writer placed call to Alcides (step-daughter)- Alcides had initially agreed to be HCP, had conversation with this communications writer and Camila Galindo. Alcides now no longer wants to be HCP. Call placed to Camila Galindo, [facility] will petition courts for Sita Pace to have guardianship along with conservatorship. We will removed Alcides as contact for patient.
[2024-06-01] MEDS: risperiDONE Oral Sol 1 MG/ML SOLUTION 0.5 MG PO ×2 (09:36→20:48)
[2024-06-01] MEDS: Miconazole Nitrate 2% Powder 85 GM Bottle 1 APPL TOPICAL ×2 (09:41→20:50)
[2024-06-01 13:00] VITALS: BMI 19.3
--- NOTE | 2024-06-01 13:34 | MHC.CLN ---
F/U DIET=REGULAR, CHOPPED. SUPERVISE AT MEALS. CONTINUE SUPPLEMENTS: MAGIC CUP TID (870 KCALS, 27 G PROTEIN) AND ENSURE TID (1050 KCALS, 60 G PROTEIN). VARIABLE INTAKE AT MEALS. DOES ACCEPT MAGIC CUP. DISLIKES STRAWBERRY ENSURE (DINING SERVICES AWARE). INTAKE AT MEALS CONTINUES TO BE VARIABLE, 25-75% WITH MOST AT LEAST 50%. CONTINUE CURRENT DIET AND SUPPLEMENTS AND ENCOURAGE PO INTAKE ABLE. RD TO FOLLOW UP WEEKLY.
[2024-06-01 15:18] VITALS: BP 145/69; PULSE 70; RESP 20; TEMP 36.6; O2SAT 94
--- NOTE | 2024-06-01 16:08 | PM.PSYCN ---
History of Present Illness Date of Service: 06/01/24 Chief Complaint: Worsening encephalopathy of unclear etiology Reason for Consult: psych med adjustment- ? need of risperidone Requesting physician: Steffen Hi Discussed with referring provider: Yes Sources of Information: patient interviewed and chart reviewed HPI Narrative: Patient is a 83 year old male with hx of htn, unspecified dementia, admitted to [facility] 02/13/24 for FTT, not taking meds or food, transfered to medicine 02/14/24. Psychiatric consult placed for: psych med adjustment- ? need of risperidone During psychiatric assessment, pt presents calm and sitting in chair. Able to answer simple questions. States he is feeling good and asks T/W how she is doing. Unable to tell location or name of facility. Pt reports he has been walking despite only being moved with [employer]. Per nursing, pt has been calm, and pleasant; not combative. Would recommend to DC risperidone 0.5mg PO BID; can restart if pt become aggressive/agitated. Discussed with Dr. Hi. Past Psychiatric History: Inpt: none OP: none Medical Evaluation Reviewed: Yes [facility] Medical History (Updated 06/01/24 @ 16:22 by Tiarra Howell NP) Hypertension Dementia with behavioral disturbance Family History: unknown Social History: Pt originally [place] Diagnostics Vital Signs (24Hr): Vital Signs - 24 hr 05/31/24 23:51 06/01/24 05:21 06/01/24 08:00 Temperature 98.1 F 97.2 F Pulse Rate 62 71 Respiratory Rate 18 16 18 Blood Pressure 138/68 136/70 Pulse Oximetry 97 100 Oxygen Delivery Method Room Air Room Air 06/01/24 15:18 Temperature 98 F Pulse Rate 70 Respiratory Rate 20 Blood Pressure 145/69 H Pulse Oximetry 94 Oxygen Delivery Method Room Air BMI result Body Mass Index 19.5 Labs 05/21/24 08:15 05/21/24 08:15 Imaging Radiology Impressions: ITS Impressions Chest X-Ray 02/15/24 11:37 IMPRESSION: No acute pulmonary pathology. Electronically signed by: Selvin Mckenna MD 02/15/2024 04:16 PM EDT RP KUB X-Ray 02/15/24 11:37 IMPRESSION: Nonobstructing bowel gas pattern. Electronically signed by: Selvin Mckenna MD 02/15/2024 12:28 PM EDT RP Brain MRI 02/16/24 09:50 IMPRESSION: 1. No acute intracranial abnormalities. No imaging findings to suggest CJD. 2. Global cerebral atrophy and chronic microangiopathy. Electronically signed by: Martell Saeed MD 02/16/2024 01:49 PM EDT RP Lumbar Puncture Fluoroscopy 02/18/24 13:30 IMPRESSION: Successful fluoroscopic guided lumbar puncture at L2-L3. This procedure was performed by Paul Alonzo PA-C and supervised by Dr. Alonso. Electronically signed by: Errol Alonso MD 02/20/2024 02:03 PM EDT RP Mental Status Exam Mental Status Exam Patient Appearance: Appropriate Patient Orientation: Person Level of Consciousness: Awake Patient Behavior: Appropriate and Good Eye Contact Mood Description: Calm Affect Description: Blunted Ability to Follow Directions: Good Speech Pattern: Clear Memory Description: Bilingual Loan Processor Impaired Thought Process: Confusion Medications Medications Current Medications Acetaminophen (Acetaminophen 325 Mg Tablet) 650 mg PO Q6H PRN PRN Reason: Pain, Mild (Pain Scale 1-3), fever or headache Last Admin: 05/02/24 13:31 Dose: 650 mg Al Hydroxide/Mg Hydroxide (Magnesium Hydrox/Alum Hydrox 30 Ml Oral.Susp) 30 ml PO Q6H PRN PRN Reason: Constipation Benzonatate (Benzonatate 100 Mg Capsule) 100 mg PO TID PRN PRN Reason: Cough Calcium Carbonate (Calcium Carbonate 750 Mg Tab.Chew) 750 mg PO Q4H PRN PRN Reason: Heartburn Clonidine (Clonidine 0.1 Mg Patch.Tdwk) 0.1 mg TRANSDERMA Tu@0900 [facility]; Protocol Last Admin: 05/26/24 09:13 Dose: 0.1 mg Enoxaparin Sodium (Enoxaparin Sodium 40 Mg/0.4 Ml Syringe) 40 mg SUBCUT Q24H [facility] Last Admin: 05/31/24 16:56 Dose: 40 mg Loperamide HCl (Loperamide Hcl 2 Mg Capsule) 2 mg PO Q4H PRN PRN Reason: Diarrhea Last Admin: 04/27/24 15:22 Dose: 2 mg Magnesium Hydroxide (Milk Of Magnesia 30 Ml Oral.Susp) 30 ml PO DAILY PRN PRN Reason: Constipation Melatonin (Melatonin 3 Mg Tablet) 6 mg PO BEDTIME PRN PRN Reason: Insomnia Last Admin: 04/29/24 19:24 Dose: 6 mg Miconazole Nitrate (Miconazole Nitrate 2% Powder 85 Gm Bottle) 1 appl TOPICAL BID [facility]; Protocol Last Admin: 06/01/24 09:41 Dose: 1 appl Nicotine Polacrilex (Nicotine Polacrilex 2 Mg Gum) 4 mg BUCCAL Q2H PRN PRN Reason: Nicotine Cravings Ondansetron HCl (Ondansetron Hcl 4 Mg/2 Ml Vial) 4 mg IVPUSH Q8H PRN PRN Reason: Nausea and Vomiting Last Admin: 03/02/24 18:44 Dose: 4 mg Ondansetron HCl (Ondansetron Odt 4 Mg Tab.Rapdis) 4 mg TRANSLINGU Q6H PRN PRN Reason: Nausea and Vomiting Last Admin: 04/08/24 19:57 Dose: 4 mg Risperidone (Risperidone Oral Peg 1 Mg/Ml Solution) 0.5 mg PO BID [facility] Last Admin: 06/01/24 09:36 Dose: 0.5 mg Trazodone HCl (Trazodone Hcl 25 Mg Halftab) 25 mg PO BEDTIME PRN PRN Reason: Insomnia Last Admin: 04/29/24 19:24 Dose: 25 mg Allergies Allergies Allergy/AdvReac Type Severity Reaction Status Date / Time No Known Allergies Allergy Verified 02/12/24 21:44 Assessment & Plan Assessment & Plan (1) Dementia with behavioral disturbance: Status: Acute Code(s): F03.918 - Unspecified dementia, unspecified severity, with other behavioral disturbance Plan -DC risperidone 0.5mg PO BID; can restart if pt become aggressive/agitated. -Re-consult if any further concerns. -Discussed with Dr. Hi. Total time managing care of this patient today _20___ minutes.
[2024-06-01] MEDS: Enoxaparin Sodium 40 MG/0.4 ML SYRINGE SUBCUT (16:54)
--- NOTE | 2024-06-01 17:05 | P.PNIM_ITS ---
Subjective Subjective Date of Service: 06/01/24 Interval History: seems baseline denies new c/o Review of Systems as above. Physical Exam 2 Vital Signs: Vital Signs: Last Vital Signs Temp 98 F 06/01/24 15:18 Pulse 70 06/01/24 15:18 Resp 20 06/01/24 15:18 BP 145/69 H 06/01/24 15:18 Pulse Ox 94 06/01/24 15:18 O2 Del Method Room Air 06/01/24 15:18 O2 Flow Rate 2 03/28/24 07:24 BMI result Body Mass Index 19.5 Essential unchanged. Cardiovascular : rrr,s1s2 heard. Skin : Warm, Dry Neurological : Alert & disoriented to place and time, No focal deficiency Objective Data Active Medications Acetaminophen (Acetaminophen 325 Mg Tablet) 650 mg PO Q6H PRN PRN Reason: Pain, Mild (Pain Scale 1-3), fever or headache Last Admin: 05/02/24 13:31 Dose: 650 mg Al Hydroxide/Mg Hydroxide (Magnesium Hydrox/Alum Hydrox 30 Ml Oral.Susp) 30 ml PO Q6H PRN PRN Reason: Constipation Benzonatate (Benzonatate 100 Mg Capsule) 100 mg PO TID PRN PRN Reason: Cough Calcium Carbonate (Calcium Carbonate 750 Mg Tab.Chew) 750 mg PO Q4H PRN PRN Reason: Heartburn Clonidine (Clonidine 0.1 Mg Patch.Tdwk) 0.1 mg TRANSDERMA Tu@0900 [facility]; Protocol Last Admin: 05/26/24 09:13 Dose: 0.1 mg Documented By: CELINE Enoxaparin Sodium (Enoxaparin Sodium 40 Mg/0.4 Ml Syringe) 40 mg SUBCUT Q24H [facility] Last Admin: 06/01/24 16:54 Dose: 40 mg Documented By: WILMA Loperamide HCl (Loperamide Hcl 2 Mg Capsule) 2 mg PO Q4H PRN PRN Reason: Diarrhea Last Admin: 04/27/24 15:22 Dose: 2 mg Documented By: JESSICA Magnesium Hydroxide (Milk Of Magnesia 30 Ml Oral.Susp) 30 ml PO DAILY PRN PRN Reason: Constipation Melatonin (Melatonin 3 Mg Tablet) 6 mg PO BEDTIME PRN PRN Reason: Insomnia Last Admin: 04/29/24 19:24 Dose: 6 mg Miconazole Nitrate (Miconazole Nitrate 2% Powder 85 Gm Bottle) 1 appl TOPICAL BID [facility]; Protocol Last Admin: 06/01/24 09:41 Dose: 1 appl Documented By: WILMA Nicotine Polacrilex (Nicotine Polacrilex 2 Mg Gum) 4 mg BUCCAL Q2H PRN PRN Reason: Nicotine Cravings Ondansetron HCl (Ondansetron Hcl 4 Mg/2 Ml Vial) 4 mg IVPUSH Q8H PRN PRN Reason: Nausea and Vomiting Last Admin: 03/02/24 18:44 Dose: 4 mg Documented By: SEN Ondansetron HCl (Ondansetron Odt 4 Mg Tab.Rapdis) 4 mg TRANSLINGU Q6H PRN PRN Reason: Nausea and Vomiting Last Admin: 04/08/24 19:57 Dose: 4 mg Documented By: GERARDO-DILMA Risperidone (Risperidone Oral Peg 1 Mg/Ml Solution) 0.5 mg PO BID [facility] Last Admin: 06/01/24 09:36 Dose: 0.5 mg Documented By: WILMA Trazodone HCl (Trazodone Hcl 25 Mg Halftab) 25 mg PO BEDTIME PRN PRN Reason: Insomnia Last Admin: 04/29/24 19:24 Dose: 25 mg Labs 05/21/24 08:15 05/21/24 08:15 Assessment and Plan (1) Cognitive and behavioral changes: Status: Acute Assessment and Plan: 83M PMH htn, unspecified dementia, admitted to [facility] 02/13/24 for FTT, not taking meds or food, transfered to medicine 02/14/24. 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 DVT prophylaxis with Lovenox Full Code reason for continued hospitalization: Safe dispo The patient HCP is his step-daughter Alcides can be reached on [phone] Patient sister name is Dr. Nate Genao and her phone number is [phone] to be contacted for any updates. Quality Stroke Does the patient have a stroke diagnosis?: No VTE Prior VTE?: No VTE Risk Level:: Medical - moderate - high VTE Device Contraindication: Treatment Not Indicated VTE Drug Contraindication: N/A - Med Ordered
[2024-06-01 23:43] VITALS: BP 140/70; PULSE 65; RESP 14; TEMP 36.1; O2SAT 94
[2024-06-02 07:53] VITALS: BP 125/56; PULSE 60; RESP 18; TEMP 36.1; O2SAT 95
[2024-06-02] MEDS: cloNIDine 0.1 MG PATCH.TDWK TRANSDERMA (08:55)
[2024-06-02] MEDS: Miconazole Nitrate 2% Powder 85 GM Bottle 1 APPL TOPICAL ×2 (08:58→19:53)
--- NOTE | 2024-06-02 10:45 | P.PNIM_ITS ---
Subjective Subjective Date of Service: 06/02/24 Interval History: seems baseline denies new c/o Review of Systems Review of Systems: Yes all other systems are reviewed and are negative Physical Exam 2 Vital Signs: Vital Signs: Last Vital Signs Temp 97.0 F 06/02/24 07:53 Pulse 60 06/02/24 07:53 Resp 18 06/02/24 07:53 BP 125/56 L 06/02/24 07:53 Pulse Ox 95 06/02/24 07:53 O2 Del Method Room Air 06/02/24 07:53 O2 Flow Rate 2 03/28/24 07:24 BMI result Body Mass Index 19.3 Essential unchanged. Cardiovascular : rrr,s1s2 heard. Skin : Warm, Dry Neurological : Alert & disoriented to place and time, No focal deficiency Objective Data Active Medications Acetaminophen (Acetaminophen 325 Mg Tablet) 650 mg PO Q6H PRN PRN Reason: Pain, Mild (Pain Scale 1-3), fever or headache Last Admin: 05/02/24 13:31 Dose: 650 mg Al Hydroxide/Mg Hydroxide (Magnesium Hydrox/Alum Hydrox 30 Ml Oral.Susp) 30 ml PO Q6H PRN PRN Reason: Constipation Benzonatate (Benzonatate 100 Mg Capsule) 100 mg PO TID PRN PRN Reason: Cough Calcium Carbonate (Calcium Carbonate 750 Mg Tab.Chew) 750 mg PO Q4H PRN PRN Reason: Heartburn Clonidine (Clonidine 0.1 Mg Patch.Tdwk) 0.1 mg TRANSDERMA Tu@0900 [facility]; Protocol Last Admin: 06/02/24 08:55 Dose: 0.1 mg Documented By: WILMA Enoxaparin Sodium (Enoxaparin Sodium 40 Mg/0.4 Ml Syringe) 40 mg SUBCUT Q24H [facility] Last Admin: 06/01/24 16:54 Dose: 40 mg Documented By: WILMA Loperamide HCl (Loperamide Hcl 2 Mg Capsule) 2 mg PO Q4H PRN PRN Reason: Diarrhea Last Admin: 04/27/24 15:22 Dose: 2 mg Documented By: JESSICA Magnesium Hydroxide (Milk Of Magnesia 30 Ml Oral.Susp) 30 ml PO DAILY PRN PRN Reason: Constipation Melatonin (Melatonin 3 Mg Tablet) 6 mg PO BEDTIME PRN PRN Reason: Insomnia Last Admin: 04/29/24 19:24 Dose: 6 mg Miconazole Nitrate (Miconazole Nitrate 2% Powder 85 Gm Bottle) 1 appl TOPICAL BID [facility]; Protocol Last Admin: 06/02/24 08:58 Dose: 1 appl Documented By: WILMA Nicotine Polacrilex (Nicotine Polacrilex 2 Mg Gum) 4 mg BUCCAL Q2H PRN PRN Reason: Nicotine Cravings Ondansetron HCl (Ondansetron Hcl 4 Mg/2 Ml Vial) 4 mg IVPUSH Q8H PRN PRN Reason: Nausea and Vomiting Last Admin: 03/02/24 18:44 Dose: 4 mg Documented By: SEN Ondansetron HCl (Ondansetron Odt 4 Mg Tab.Rapdis) 4 mg TRANSLINGU Q6H PRN PRN Reason: Nausea and Vomiting Last Admin: 04/08/24 19:57 Dose: 4 mg Documented By: GERARDO-ZADRNeville Trazodone HCl (Trazodone Hcl 25 Mg Halftab) 25 mg PO BEDTIME PRN PRN Reason: Insomnia Last Admin: 04/29/24 19:24 Dose: 25 mg Labs 05/21/24 08:15 05/21/24 08:15 Assessment and Plan (1) Cognitive and behavioral changes: Status: Acute Assessment and Plan: 83M PMH htn, unspecified dementia, admitted to [facility] 02/13/24 for FTT, not taking meds or food, transfered to medicine 02/14/24. 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 Re-consult if any further concerns. DVT prophylaxis with Lovenox Full Code reason for continued hospitalization: Safe dispo The patient HCP is his step-daughter Alcides can be reached on [phone] Patient sister name is Dr. Nate Genao and her phone number is [phone] to be contacted for any updates. Quality Stroke Does the patient have a stroke diagnosis?: No VTE Prior VTE?: No VTE Risk Level:: Medical - moderate - high VTE Device Contraindication: Treatment Not Indicated VTE Drug Contraindication: N/A - Med Ordered
--- NOTE | 2024-06-02 13:27 | HO.WOUND ---
Wound Consult: Initial - New consult placed 83yr old?[place] [facility] [place] - See progress notes and H&P for detailed history.? Wound consult placed for fungal dermatitis to groin.? Arrival to bedside patient was agreeable to my assessment and photo documentation. He was noted to have a male Purewick inplace. No injury noted at this time given history of MARSI - no s/s of fungal dermatitis at this time however Nystatin powder is in use and has been in use. No topical interventions needed at this time - discussed with direct care nurse that should the patient have concerns for MARSI at next Purewick change to discontinue use and use barrier creams and incontinence care. At this time no topical interventions needed. Re-consult wound care Nurse for wound deterioration or wound changes.
[2024-06-02 15:30] VITALS: BP 159/84; PULSE 97; RESP 16; TEMP 36.6; O2SAT 96
[2024-06-02] MEDS: Enoxaparin Sodium 40 MG/0.4 ML SYRINGE SUBCUT (16:59)
[2024-06-02 23:50] VITALS: BP 146/81; PULSE 68; RESP 18; TEMP 36.3; O2SAT 96
[2024-06-03 07:23] VITALS: BP 129/64; PULSE 59; RESP 18; TEMP 36; O2SAT 100
[2024-06-03] MEDS: Miconazole Nitrate 2% Powder 85 GM Bottle 1 APPL TOPICAL ×2 (07:36→20:59)
--- NOTE | 2024-06-03 09:49 | HO.PM.IMPN ---
Subjective Subjective Date of Service: 06/03/24 Interval History: At his baseline, seating in chair, no complaint Physical Exam Vital Signs: Vital Signs: Last Vital Signs Temp 96.8 F 06/03/24 07:23 Pulse 59 06/03/24 07:23 Resp 18 06/03/24 07:23 BP 129/64 06/03/24 07:23 Pulse Ox 100 06/03/24 07:23 O2 Del Method Room Air 06/03/24 07:23 O2 Flow Rate 2 03/28/24 07:24 BMI result Body Mass Index 19.3 Essential unchanged. Cardiovascular : rrr,s1s2 heard. Skin : Warm, Dry Neurological : Alert & disoriented to place and time, No focal deficiency, flat affect Objective Data Active Medications Acetaminophen (Acetaminophen 325 Mg Tablet) 650 mg PO Q6H PRN PRN Reason: Pain, Mild (Pain Scale 1-3), fever or headache Last Admin: 05/02/24 13:31 Dose: 650 mg Al Hydroxide/Mg Hydroxide (Magnesium Hydrox/Alum Hydrox 30 Ml Oral.Susp) 30 ml PO Q6H PRN PRN Reason: Constipation Benzonatate (Benzonatate 100 Mg Capsule) 100 mg PO TID PRN PRN Reason: Cough Calcium Carbonate (Calcium Carbonate 750 Mg Tab.Chew) 750 mg PO Q4H PRN PRN Reason: Heartburn Clonidine (Clonidine 0.1 Mg Patch.Tdwk) 0.1 mg TRANSDERMA Tu@0900 [facility]; Protocol Last Admin: 06/02/24 08:55 Dose: 0.1 mg Documented By: WILMA Enoxaparin Sodium (Enoxaparin Sodium 40 Mg/0.4 Ml Syringe) 40 mg SUBCUT Q24H [facility] Last Admin: 06/02/24 16:59 Dose: 40 mg Documented By: WILMA Loperamide HCl (Loperamide Hcl 2 Mg Capsule) 2 mg PO Q4H PRN PRN Reason: Diarrhea Last Admin: 04/27/24 15:22 Dose: 2 mg Documented By: JESSICA Magnesium Hydroxide (Milk Of Magnesia 30 Ml Oral.Susp) 30 ml PO DAILY PRN PRN Reason: Constipation Melatonin (Melatonin 3 Mg Tablet) 6 mg PO BEDTIME PRN PRN Reason: Insomnia Last Admin: 04/29/24 19:24 Dose: 6 mg Miconazole Nitrate (Miconazole Nitrate 2% Powder 85 Gm Bottle) 1 appl TOPICAL BID [facility]; Protocol Last Admin: 06/03/24 07:36 Dose: 1 appl Documented By: JOHANNANM Nicotine Polacrilex (Nicotine Polacrilex 2 Mg Gum) 4 mg BUCCAL Q2H PRN PRN Reason: Nicotine Cravings Ondansetron HCl (Ondansetron Hcl 4 Mg/2 Ml Vial) 4 mg IVPUSH Q8H PRN PRN Reason: Nausea and Vomiting Last Admin: 03/02/24 18:44 Dose: 4 mg Documented By: SEN Ondansetron HCl (Ondansetron Odt 4 Mg Tab.Rapdis) 4 mg TRANSLINGU Q6H PRN PRN Reason: Nausea and Vomiting Last Admin: 04/08/24 19:57 Dose: 4 mg Documented By: CAPRICEZADRNeville Trazodone HCl (Trazodone Hcl 25 Mg Halftab) 25 mg PO BEDTIME PRN PRN Reason: Insomnia Last Admin: 04/29/24 19:24 Dose: 25 mg Labs 05/21/24 08:15 05/21/24 08:15 Assessment and Plan (1) Cognitive and behavioral changes: Status: Acute Assessment and Plan: 83M PMH htn, unspecified dementia, admitted to [facility] 02/13/24 for FTT, not taking meds or food, transfered to medicine 02/14/24. 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 Re-consult if any further concerns. DVT prophylaxis with Lovenox Full Code reason for continued hospitalization: Safe dispo The patient HCP is his step-daughter Alcides can be reached on [phone] Patient sister name is Dr. Nate Genao and her phone number is [phone] to be contacted for any updates. Quality Stroke Does the patient have a stroke diagnosis?: No VTE Prior VTE?: No VTE Risk Level:: Medical - moderate - high VTE Device Contraindication: Treatment Not Indicated VTE Drug Contraindication: N/A - Med Ordered
--- NOTE | 2024-06-03 10:57 | MHC.CM.PN ---
PT WILL NOW NEED A GUARDIAN HCP NO LONGER WISHES TO SERVE SUCH. GUARDIANSHIP HEARING DATE PENDING. CM WILL CONTINUE TO FOLLOW.
[2024-06-03 14:59] VITALS: BP 139/74; PULSE 85; RESP 20; TEMP 36.6; O2SAT 96
[2024-06-03] MEDS: Enoxaparin Sodium 40 MG/0.4 ML SYRINGE SUBCUT (16:07)
[2024-06-03 23:39] VITALS: BP 129/66; PULSE 54; RESP 16; TEMP 36.4; O2SAT 97
[2024-06-04 07:10] VITALS: BP 105/64; PULSE 53; RESP 12; TEMP 36.3; O2SAT 98
[2024-06-04] MEDS: Miconazole Nitrate 2% Powder 85 GM Bottle 1 APPL TOPICAL ×2 (08:12→20:14)
--- NOTE | 2024-06-04 11:00 | HO.PM.IMPN ---
Subjective Subjective Date of Service: 06/04/24 Interval History: No new isssues, sitting in chair and eating Physical Exam Vital Signs: Vital Signs: Last Vital Signs Temp 97.3 F 06/04/24 07:10 Pulse 53 06/04/24 07:10 Resp 12 06/04/24 07:10 BP 105/64 06/04/24 07:10 Pulse Ox 98 06/04/24 07:10 O2 Del Method Room Air 06/04/24 07:10 O2 Flow Rate 2 03/28/24 07:24 BMI result Body Mass Index 19.3 Essential unchanged. Cardiovascular : rrr,s1s2 heard. Skin : Warm, Dry Neurological : Alert & disoriented to place and time, No focal deficiency, flat affect Objective Data Active Medications Acetaminophen (Acetaminophen 325 Mg Tablet) 650 mg PO Q6H PRN PRN Reason: Pain, Mild (Pain Scale 1-3), fever or headache Last Admin: 05/02/24 13:31 Dose: 650 mg Al Hydroxide/Mg Hydroxide (Magnesium Hydrox/Alum Hydrox 30 Ml Oral.Susp) 30 ml PO Q6H PRN PRN Reason: Constipation Benzonatate (Benzonatate 100 Mg Capsule) 100 mg PO TID PRN PRN Reason: Cough Calcium Carbonate (Calcium Carbonate 750 Mg Tab.Chew) 750 mg PO Q4H PRN PRN Reason: Heartburn Clonidine (Clonidine 0.1 Mg Patch.Tdwk) 0.1 mg TRANSDERMA Tu@0900 [facility]; Protocol Last Admin: 06/02/24 08:55 Dose: 0.1 mg Documented By: WILMA Enoxaparin Sodium (Enoxaparin Sodium 40 Mg/0.4 Ml Syringe) 40 mg SUBCUT Q24H [facility] Last Admin: 06/03/24 16:07 Dose: 40 mg Documented By: CELINE Loperamide HCl (Loperamide Hcl 2 Mg Capsule) 2 mg PO Q4H PRN PRN Reason: Diarrhea Last Admin: 04/27/24 15:22 Dose: 2 mg Documented By: JESSICA Magnesium Hydroxide (Milk Of Magnesia 30 Ml Oral.Susp) 30 ml PO DAILY PRN PRN Reason: Constipation Melatonin (Melatonin 3 Mg Tablet) 6 mg PO BEDTIME PRN PRN Reason: Insomnia Last Admin: 04/29/24 19:24 Dose: 6 mg Miconazole Nitrate (Miconazole Nitrate 2% Powder 85 Gm Bottle) 1 appl TOPICAL BID [facility]; Protocol Last Admin: 06/04/24 08:12 Dose: 1 appl Documented By: JOHANNANM Nicotine Polacrilex (Nicotine Polacrilex 2 Mg Gum) 4 mg BUCCAL Q2H PRN PRN Reason: Nicotine Cravings Ondansetron HCl (Ondansetron Hcl 4 Mg/2 Ml Vial) 4 mg IVPUSH Q8H PRN PRN Reason: Nausea and Vomiting Last Admin: 03/02/24 18:44 Dose: 4 mg Documented By: SEN Ondansetron HCl (Ondansetron Odt 4 Mg Tab.Rapdis) 4 mg TRANSLINGU Q6H PRN PRN Reason: Nausea and Vomiting Last Admin: 04/08/24 19:57 Dose: 4 mg Documented By: CAPRICEZADRNeville Trazodone HCl (Trazodone Hcl 25 Mg Halftab) 25 mg PO BEDTIME PRN PRN Reason: Insomnia Last Admin: 04/29/24 19:24 Dose: 25 mg Labs 05/21/24 08:15 05/21/24 08:15 Assessment and Plan (1) Cognitive and behavioral changes: Status: Acute Assessment and Plan: 83M PMH htn, unspecified dementia, admitted to [facility] 02/13/24 for FTT, not taking meds or food, transfered to medicine 02/14/24. 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 Re-consult if any further concerns. DVT prophylaxis with Lovenox Full Code reason for continued hospitalization: Safe dispo The patient HCP is his step-daughter Alcides can be reached on [phone] Patient sister name is Dr. Nate Genao and her phone number is [phone] to be contacted for any updates. Quality Stroke Does the patient have a stroke diagnosis?: No VTE Prior VTE?: No VTE Risk Level:: Medical - moderate - high VTE Device Contraindication: Treatment Not Indicated VTE Drug Contraindication: N/A - Med Ordered
[2024-06-04 14:58] VITALS: BP 145/69; PULSE 70; RESP 20; TEMP 36.4; O2SAT 96
[2024-06-04] MEDS: Enoxaparin Sodium 40 MG/0.4 ML SYRINGE SUBCUT (15:00)
[2024-06-04 23:38] VITALS: BP 141/60; PULSE 60; RESP 18; TEMP 36.1; O2SAT 97
[2024-06-05 07:55] VITALS: BP 132/59; PULSE 55; RESP 14; TEMP 36.1; O2SAT 98
[2024-06-05] MEDS: Miconazole Nitrate 2% Powder 85 GM Bottle 1 APPL TOPICAL ×2 (08:01→20:40)
--- NOTE | 2024-06-05 10:40 | P.PNIM_ITS ---
Subjective Subjective Date of Service: 06/05/24 Interval History: No new isssues, sitting in chair and eating Physical Exam 2 Vital Signs: Vital Signs: Last Vital Signs Temp 97.0 F 06/05/24 07:55 Pulse 55 06/05/24 07:55 Resp 14 06/05/24 07:55 BP 132/59 L 06/05/24 07:55 Pulse Ox 98 06/05/24 07:55 O2 Del Method Room Air 06/05/24 07:55 O2 Flow Rate 2 03/28/24 07:24 BMI result Body Mass Index 19.3 Essential unchanged. Cardiovascular : rrr,s1s2 heard. Skin : Warm, Dry Neurological : Alert & disoriented to place and time, No focal deficiency, flat affect Objective Data Active Medications Acetaminophen (Acetaminophen 325 Mg Tablet) 650 mg PO Q6H PRN PRN Reason: Pain, Mild (Pain Scale 1-3), fever or headache Last Admin: 05/02/24 13:31 Dose: 650 mg Al Hydroxide/Mg Hydroxide (Magnesium Hydrox/Alum Hydrox 30 Ml Oral.Susp) 30 ml PO Q6H PRN PRN Reason: Constipation Benzonatate (Benzonatate 100 Mg Capsule) 100 mg PO TID PRN PRN Reason: Cough Calcium Carbonate (Calcium Carbonate 750 Mg Tab.Chew) 750 mg PO Q4H PRN PRN Reason: Heartburn Clonidine (Clonidine 0.1 Mg Patch.Tdwk) 0.1 mg TRANSDERMA Tu@0900 [facility]; Protocol Last Admin: 06/02/24 08:55 Dose: 0.1 mg Documented By: WLIMA Enoxaparin Sodium (Enoxaparin Sodium 40 Mg/0.4 Ml Syringe) 40 mg SUBCUT Q24H [facility] Last Admin: 06/04/24 15:00 Dose: 40 mg Documented By: CELINE Loperamide HCl (Loperamide Hcl 2 Mg Capsule) 2 mg PO Q4H PRN PRN Reason: Diarrhea Last Admin: 04/27/24 15:22 Dose: 2 mg Documented By: JESSICA Magnesium Hydroxide (Milk Of Magnesia 30 Ml Oral.Susp) 30 ml PO DAILY PRN PRN Reason: Constipation Melatonin (Melatonin 3 Mg Tablet) 6 mg PO BEDTIME PRN PRN Reason: Insomnia Last Admin: 04/29/24 19:24 Dose: 6 mg Miconazole Nitrate (Miconazole Nitrate 2% Powder 85 Gm Bottle) 1 appl TOPICAL BID [facility]; Protocol Last Admin: 06/05/24 08:01 Dose: 1 appl Documented By: LATRICIA Nicotine Polacrilex (Nicotine Polacrilex 2 Mg Gum) 4 mg BUCCAL Q2H PRN PRN Reason: Nicotine Cravings Ondansetron HCl (Ondansetron Hcl 4 Mg/2 Ml Vial) 4 mg IVPUSH Q8H PRN PRN Reason: Nausea and Vomiting Last Admin: 03/02/24 18:44 Dose: 4 mg Documented By: SEN Ondansetron HCl (Ondansetron Odt 4 Mg Tab.Rapdis) 4 mg TRANSLINGU Q6H PRN PRN Reason: Nausea and Vomiting Last Admin: 04/08/24 19:57 Dose: 4 mg Documented By: GERARDO-ZADRNeville Trazodone HCl (Trazodone Hcl 25 Mg Halftab) 25 mg PO BEDTIME PRN PRN Reason: Insomnia Last Admin: 04/29/24 19:24 Dose: 25 mg Labs 05/21/24 08:15 05/21/24 08:15 Assessment and Plan (1) Cognitive and behavioral changes: Status: Acute Assessment and Plan: 83M PMH htn, unspecified dementia, admitted to [facility] 02/13/24 for FTT, not taking meds or food, transfered to medicine 02/14/24. 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 Re-consult if any further concerns. check routine labs bmp, cbc today DVT prophylaxis with Lovenox Full Code reason for continued hospitalization: Safe dispo The patient HCP is his step-daughter Alcides can be reached on [phone] Patient sister name is Dr. Nate Genao and her phone number is [phone] to be contacted for any updates. Quality Stroke Does the patient have a stroke diagnosis?: No VTE Prior VTE?: No VTE Risk Level:: Medical - moderate - high VTE Device Contraindication: Treatment Not Indicated VTE Drug Contraindication: N/A - Med Ordered
[2024-06-05 11:10] LABS: Hematocrit 45.1 % (42.0-52.0); Hemoglobin 15.1 g/dl (14.0-18.0); Mean Corpuscular HGB Conc 33.5 g/dl (31.0-36.0); Mean Corpuscular Hemoglobin 31.6 pg (27.0-33.0); Mean Corpuscular Volume 94.4 fL (80.0-98.0); Mean Platelet Volume 10.1 fL (9.4-12.4); Platelet Count 235 X10*3/uL (160-400); Red Blood Count 4.78 X10*6/uL (4.60-5.80); Red Cell Distribution Width 14.5 % (11.0-16.0); White Blood Count 6.6 X10*3/uL (4.8-10.8)
[2024-06-05 11:22] LABS: Anion Gap 11 (12-20); Blood Urea Nitrogen 16 mg/dL (9-16); Calcium 9.5 mg/dL (8.4-10.2); Carbon Dioxide 27 mmol/L (22-29); Chloride 106 mmol/L (96-108); Creatinine Clr Calc Pharmacy 72.8; Estimated Glomerular Filt Rate > 60; Glucose Random 100 mg/dL (60-115); Magnesium 2.2 mg/dL (1.6-2.6); Phosphorus 3.1 mg/dL (2.7-4.5); Potassium 4.2 mmol/L (3.3-5.1); Sodium 140 mmol/L (135-145)
--- NOTE | 2024-06-05 13:39 | MHC.CM.PN ---
EMR reviewed and per MD rounds, pt is awaiting guardianship, then LTC placement.
[2024-06-05 16:00] VITALS: BP 142/65; PULSE 72; RESP 18; TEMP 37; O2SAT 95
[2024-06-05] MEDS: Enoxaparin Sodium 40 MG/0.4 ML SYRINGE SUBCUT (17:27)
[2024-06-05 23:18] VITALS: BP 125/73; PULSE 63; RESP 18; TEMP 36.4; O2SAT 96
[2024-06-06 06:45] VITALS: BP 123/58; PULSE 57; RESP 16; TEMP 36.4; O2SAT 98
[2024-06-06] MEDS: Miconazole Nitrate 2% Powder 85 GM Bottle 1 APPL TOPICAL ×2 (09:20→22:14)
--- NOTE | 2024-06-06 12:09 | P.PNIM_ITS ---
Subjective Subjective Date of Service: 06/06/24 Interval History: No new issues Physical Exam 2 Vital Signs: Vital Signs: Last Vital Signs Temp 97.5 F 06/06/24 06:45 Pulse 57 06/06/24 06:45 Resp 16 06/06/24 06:45 BP 123/58 L 06/06/24 06:45 Pulse Ox 98 06/06/24 06:45 O2 Del Method Room Air 06/06/24 06:45 O2 Flow Rate 2 03/28/24 07:24 BMI result Body Mass Index 19.3 Essential unchanged. Cardiovascular : rrr,s1s2 heard. Skin : Warm, Dry Neurological : Alert & disoriented to place and time, No focal deficiency, flat affect Objective Data Active Medications Acetaminophen (Acetaminophen 325 Mg Tablet) 650 mg PO Q6H PRN PRN Reason: Pain, Mild (Pain Scale 1-3), fever or headache Last Admin: 05/02/24 13:31 Dose: 650 mg Al Hydroxide/Mg Hydroxide (Magnesium Hydrox/Alum Hydrox 30 Ml Oral.Susp) 30 ml PO Q6H PRN PRN Reason: Constipation Benzonatate (Benzonatate 100 Mg Capsule) 100 mg PO TID PRN PRN Reason: Cough Calcium Carbonate (Calcium Carbonate 750 Mg Tab.Chew) 750 mg PO Q4H PRN PRN Reason: Heartburn Clonidine (Clonidine 0.1 Mg Patch.Tdwk) 0.1 mg TRANSDERMA Tu@0900 [facility]; Protocol Last Admin: 06/02/24 08:55 Dose: 0.1 mg Documented By: WILMA Enoxaparin Sodium (Enoxaparin Sodium 40 Mg/0.4 Ml Syringe) 40 mg SUBCUT Q24H [facility] Last Admin: 06/05/24 17:27 Dose: 40 mg Documented By: RADHA Loperamide HCl (Loperamide Hcl 2 Mg Capsule) 2 mg PO Q4H PRN PRN Reason: Diarrhea Last Admin: 04/27/24 15:22 Dose: 2 mg Documented By: JESSICA Magnesium Hydroxide (Milk Of Magnesia 30 Ml Oral.Susp) 30 ml PO DAILY PRN PRN Reason: Constipation Melatonin (Melatonin 3 Mg Tablet) 6 mg PO BEDTIME PRN PRN Reason: Insomnia Last Admin: 04/29/24 19:24 Dose: 6 mg Miconazole Nitrate (Miconazole Nitrate 2% Powder 85 Gm Bottle) 1 appl TOPICAL BID [facility]; Protocol Last Admin: 06/06/24 09:20 Dose: 1 appl Documented By: ALONDRA Nicotine Polacrilex (Nicotine Polacrilex 2 Mg Gum) 4 mg BUCCAL Q2H PRN PRN Reason: Nicotine Cravings Ondansetron HCl (Ondansetron Hcl 4 Mg/2 Ml Vial) 4 mg IVPUSH Q8H PRN PRN Reason: Nausea and Vomiting Last Admin: 03/02/24 18:44 Dose: 4 mg Documented By: SEN Ondansetron HCl (Ondansetron Odt 4 Mg Tab.Rapdis) 4 mg TRANSLINGU Q6H PRN PRN Reason: Nausea and Vomiting Last Admin: 04/08/24 19:57 Dose: 4 mg Documented By: GERARDO-ZADRT Trazodone HCl (Trazodone Hcl 25 Mg Halftab) 25 mg PO BEDTIME PRN PRN Reason: Insomnia Last Admin: 04/29/24 19:24 Dose: 25 mg Labs 06/05/24 10:53 06/05/24 10:53 Assessment and Plan (1) Cognitive and behavioral changes: Status: Acute Assessment and Plan: 83M PMH htn, unspecified dementia, admitted to [facility] 02/13/24 for FTT, not taking meds or food, transfered to medicine 02/14/24. 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 Re-consult if any further concerns. check routine labs bmp, cbc today DVT prophylaxis with Lovenox Full Code reason for continued hospitalization: Safe dispo routine labs on 06/05, cbc, bmp ok The patient HCP is his step-daughter Alcides can be reached on [phone] Patient sister name is Dr. Nate Genao and her phone number is [phone] to be contacted for any updates. Quality Stroke Does the patient have a stroke diagnosis?: No VTE Prior VTE?: No VTE Risk Level:: Medical - moderate - high VTE Device Contraindication: Treatment Not Indicated VTE Drug Contraindication: N/A - Med Ordered
[2024-06-06 15:09] VITALS: BP 148/84; PULSE 79; RESP 16; TEMP 36.4; O2SAT 95
[2024-06-06] MEDS: Enoxaparin Sodium 40 MG/0.4 ML SYRINGE SUBCUT (15:47)
[2024-06-06 23:28] VITALS: BP 148/72; PULSE 63; RESP 17; TEMP 36; O2SAT 98
[2024-06-07 06:54] VITALS: BP 144/71; PULSE 54; RESP 16; TEMP 36.6; O2SAT 99
[2024-06-07] MEDS: Miconazole Nitrate 2% Powder 85 GM Bottle 1 APPL TOPICAL ×2 (08:07→19:54)
--- NOTE | 2024-06-07 11:19 | HO.PM.IMPN ---
Subjective Subjective Date of Service: 06/07/24 Interval History: No new issues Physical Exam Vital Signs: Vital Signs: Last Vital Signs Temp 97.9 F 06/07/24 06:54 Pulse 54 06/07/24 06:54 Resp 16 06/07/24 06:54 BP 144/71 H 06/07/24 06:54 Pulse Ox 99 06/07/24 06:54 O2 Del Method Room Air 06/07/24 06:54 O2 Flow Rate 2 03/28/24 07:24 BMI result Body Mass Index 19.3 Essential unchanged. Cardiovascular : rrr,s1s2 heard. Skin : Warm, Dry Neurological : Alert & disoriented to place and time, No focal deficiency, flat affect Objective Data Active Medications Acetaminophen (Acetaminophen 325 Mg Tablet) 650 mg PO Q6H PRN PRN Reason: Pain, Mild (Pain Scale 1-3), fever or headache Last Admin: 05/02/24 13:31 Dose: 650 mg Al Hydroxide/Mg Hydroxide (Magnesium Hydrox/Alum Hydrox 30 Ml Oral.Susp) 30 ml PO Q6H PRN PRN Reason: Constipation Benzonatate (Benzonatate 100 Mg Capsule) 100 mg PO TID PRN PRN Reason: Cough Calcium Carbonate (Calcium Carbonate 750 Mg Tab.Chew) 750 mg PO Q4H PRN PRN Reason: Heartburn Clonidine (Clonidine 0.1 Mg Patch.Tdwk) 0.1 mg TRANSDERMA Tu@0900 [facility]; Protocol Last Admin: 06/02/24 08:55 Dose: 0.1 mg Documented By: WILMA Enoxaparin Sodium (Enoxaparin Sodium 40 Mg/0.4 Ml Syringe) 40 mg SUBCUT Q24H [facility] Last Admin: 06/06/24 15:47 Dose: 40 mg Documented By: ALONDRA Loperamide HCl (Loperamide Hcl 2 Mg Capsule) 2 mg PO Q4H PRN PRN Reason: Diarrhea Last Admin: 04/27/24 15:22 Dose: 2 mg Documented By: JESSICA Magnesium Hydroxide (Milk Of Magnesia 30 Ml Oral.Susp) 30 ml PO DAILY PRN PRN Reason: Constipation Melatonin (Melatonin 3 Mg Tablet) 6 mg PO BEDTIME PRN PRN Reason: Insomnia Last Admin: 04/29/24 19:24 Dose: 6 mg Miconazole Nitrate (Miconazole Nitrate 2% Powder 85 Gm Bottle) 1 appl TOPICAL BID [facility]; Protocol Last Admin: 06/07/24 08:07 Dose: 1 appl Documented By: FIONA Nicotine Polacrilex (Nicotine Polacrilex 2 Mg Gum) 4 mg BUCCAL Q2H PRN PRN Reason: Nicotine Cravings Ondansetron HCl (Ondansetron Hcl 4 Mg/2 Ml Vial) 4 mg IVPUSH Q8H PRN PRN Reason: Nausea and Vomiting Last Admin: 03/02/24 18:44 Dose: 4 mg Documented By: SEN Ondansetron HCl (Ondansetron Odt 4 Mg Tab.Rapdis) 4 mg TRANSLINGU Q6H PRN PRN Reason: Nausea and Vomiting Last Admin: 04/08/24 19:57 Dose: 4 mg Documented By: GERARDO-ZADRT Trazodone HCl (Trazodone Hcl 25 Mg Halftab) 25 mg PO BEDTIME PRN PRN Reason: Insomnia Last Admin: 04/29/24 19:24 Dose: 25 mg Labs 06/05/24 10:53 06/05/24 10:53 Assessment and Plan (1) Cognitive and behavioral changes: Status: Acute Assessment and Plan: 83M PMH htn, unspecified dementia, admitted to [facility] 02/13/24 for FTT, not taking meds or food, transfered to medicine 02/14/24. 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 Re-consult if any further concerns. check routine labs bmp, cbc today DVT prophylaxis with Lovenox Full Code reason for continued hospitalization: Safe dispo routine labs on 06/05, cbc, bmp ok The patient HCP is his step-daughter Alcides can be reached on [phone] Patient sister name is Dr. Nate Genao and her phone number is [phone] to be contacted for any updates. Quality Stroke Does the patient have a stroke diagnosis?: No VTE Prior VTE?: No VTE Risk Level:: Medical - moderate - high VTE Device Contraindication: Treatment Not Indicated VTE Drug Contraindication: N/A - Med Ordered
[2024-06-07] MEDS: Enoxaparin Sodium 40 MG/0.4 ML SYRINGE SUBCUT (15:17)
[2024-06-07 15:40] VITALS: BP 150/70; PULSE 88; RESP 17; TEMP 36.3; O2SAT 93
[2024-06-07 23:36] VITALS: BP 158/78; PULSE 82; RESP 16; TEMP 36.1; O2SAT 96
[2024-06-08 07:40] VITALS: BP 118/64; PULSE 61; RESP 20; TEMP 36; O2SAT 99
--- NOTE | 2024-06-08 10:22 | P.PNIM_ITS ---
Subjective Subjective Date of Service: 06/08/24 Interval History: No new issues doing well Physical Exam 2 Vital Signs: Vital Signs: Last Vital Signs Temp 96.8 F 06/08/24 07:40 Pulse 61 06/08/24 07:40 Resp 20 06/08/24 07:40 BP 118/64 06/08/24 07:40 Pulse Ox 99 06/08/24 07:40 O2 Del Method Room Air 06/08/24 07:40 O2 Flow Rate 2 03/28/24 07:24 BMI result Body Mass Index 19.3 Essential unchanged. Cardiovascular : rrr,s1s2 heard. Skin : Warm, Dry Neurological : Alert & disoriented to place and time, No focal deficiency, flat affect Objective Data Active Medications Acetaminophen (Acetaminophen 325 Mg Tablet) 650 mg PO Q6H PRN PRN Reason: Pain, Mild (Pain Scale 1-3), fever or headache Last Admin: 05/02/24 13:31 Dose: 650 mg Al Hydroxide/Mg Hydroxide (Magnesium Hydrox/Alum Hydrox 30 Ml Oral.Susp) 30 ml PO Q6H PRN PRN Reason: Constipation Benzonatate (Benzonatate 100 Mg Capsule) 100 mg PO TID PRN PRN Reason: Cough Calcium Carbonate (Calcium Carbonate 750 Mg Tab.Chew) 750 mg PO Q4H PRN PRN Reason: Heartburn Clonidine (Clonidine 0.1 Mg Patch.Tdwk) 0.1 mg TRANSDERMA Tu@0900 [facility]; Protocol Last Admin: 06/02/24 08:55 Dose: 0.1 mg Documented By: WILMA Enoxaparin Sodium (Enoxaparin Sodium 40 Mg/0.4 Ml Syringe) 40 mg SUBCUT Q24H [facility] Last Admin: 06/07/24 15:17 Dose: 40 mg Documented By: FIONA Loperamide HCl (Loperamide Hcl 2 Mg Capsule) 2 mg PO Q4H PRN PRN Reason: Diarrhea Last Admin: 04/27/24 15:22 Dose: 2 mg Documented By: JESSICA Magnesium Hydroxide (Milk Of Magnesia 30 Ml Oral.Susp) 30 ml PO DAILY PRN PRN Reason: Constipation Melatonin (Melatonin 3 Mg Tablet) 6 mg PO BEDTIME PRN PRN Reason: Insomnia Last Admin: 04/29/24 19:24 Dose: 6 mg Miconazole Nitrate (Miconazole Nitrate 2% Powder 85 Gm Bottle) 1 appl TOPICAL BID [facility]; Protocol Last Admin: 06/07/24 19:54 Dose: 1 appl Documented By: GISSELLE Nicotine Polacrilex (Nicotine Polacrilex 2 Mg Gum) 4 mg BUCCAL Q2H PRN PRN Reason: Nicotine Cravings Ondansetron HCl (Ondansetron Hcl 4 Mg/2 Ml Vial) 4 mg IVPUSH Q8H PRN PRN Reason: Nausea and Vomiting Last Admin: 03/02/24 18:44 Dose: 4 mg Documented By: SEN Ondansetron HCl (Ondansetron Odt 4 Mg Tab.Rapdis) 4 mg TRANSLINGU Q6H PRN PRN Reason: Nausea and Vomiting Last Admin: 04/08/24 19:57 Dose: 4 mg Documented By: GERARDO-ZADRT Trazodone HCl (Trazodone Hcl 25 Mg Halftab) 25 mg PO BEDTIME PRN PRN Reason: Insomnia Last Admin: 04/29/24 19:24 Dose: 25 mg Labs 06/05/24 10:53 06/05/24 10:53 Assessment and Plan (1) Cognitive and behavioral changes: Status: Acute Assessment and Plan: 83M PMH htn, unspecified dementia, admitted to [facility] 02/13/24 for FTT, not taking meds or food, transfered to medicine 02/14/24. 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 Re-consult if any further concerns. check routine labs bmp, cbc today DVT prophylaxis with Lovenox Full Code reason for continued hospitalization: Safe dispo routine labs on 06/05, cbc, bmp ok The patient HCP is his step-daughter Alcides can be reached on [phone] Patient sister name is Dr. Nate Genao and her phone number is [phone] to be contacted for any updates. Quality Stroke Does the patient have a stroke diagnosis?: No VTE Prior VTE?: No VTE Risk Level:: Medical - moderate - high VTE Device Contraindication: Treatment Not Indicated VTE Drug Contraindication: N/A - Med Ordered
[2024-06-08] MEDS: Miconazole Nitrate 2% Powder 85 GM Bottle 1 APPL TOPICAL ×2 (10:25→20:13)
[2024-06-08 13:00] VITALS: BMI 19.6
[2024-06-08 15:23] VITALS: BP 142/70; PULSE 80; RESP 18; TEMP 36.6; O2SAT 94
--- NOTE | 2024-06-08 15:34 | MHC.CLN ---
F/U DIET=REGULAR, CHOPPED. CONTINUE SUPPLEMENTS: MAGIC CUP TID (870 KCALS, 27 G PROTEIN) AND ENSURE TID (1050 KCALS, 60 G PROTEIN). VARIABLE INTAKE AT MEALS. DOES ACCEPT MAGIC CUP AND ENSURE. INTAKE AT MEALS CONTINUES TO BE VARIABLE, 25-100%. CONTINUE CURRENT DIET AND SUPPLEMENTS AND ENCOURAGE PO INTAKE ABLE. RD TO FOLLOW UP WEEKLY.
[2024-06-08] MEDS: Enoxaparin Sodium 40 MG/0.4 ML SYRINGE SUBCUT (17:21)
[2024-06-09] VITALS: BP 134/79; PULSE 67; RESP 18; TEMP 36.6; O2SAT 96
[2024-06-09 07:41] VITALS: BP 139/91; PULSE 77; RESP 18; TEMP 36.7; O2SAT 97
[2024-06-09] MEDS: cloNIDine 0.1 MG PATCH.TDWK TRANSDERMA (08:12)
[2024-06-09] MEDS: Miconazole Nitrate 2% Powder 85 GM Bottle 1 APPL TOPICAL ×2 (08:12→20:01)
--- NOTE | 2024-06-09 09:20 | HO.PM.IMPN ---
Subjective Subjective Date of Service: 06/09/24 Interval History: Stable with no new issues Physical Exam Vital Signs: Vital Signs: Last Vital Signs Temp 98.1 F 06/09/24 07:41 Pulse 77 06/09/24 07:41 Resp 18 06/09/24 07:41 BP 139/91 H 06/09/24 07:41 Pulse Ox 97 06/09/24 07:41 O2 Del Method Room Air 06/09/24 07:41 O2 Flow Rate 2 03/28/24 07:24 BMI result Body Mass Index 19.6 Essential unchanged. Cardiovascular : rrr,s1s2 heard. Skin : Warm, Dry Neurological : Alert & disoriented to place and time, No focal deficiency, flat affect Objective Data Active Medications Acetaminophen (Acetaminophen 325 Mg Tablet) 650 mg PO Q6H PRN PRN Reason: Pain, Mild (Pain Scale 1-3), fever or headache Last Admin: 05/02/24 13:31 Dose: 650 mg Al Hydroxide/Mg Hydroxide (Magnesium Hydrox/Alum Hydrox 30 Ml Oral.Susp) 30 ml PO Q6H PRN PRN Reason: Constipation Benzonatate (Benzonatate 100 Mg Capsule) 100 mg PO TID PRN PRN Reason: Cough Calcium Carbonate (Calcium Carbonate 750 Mg Tab.Chew) 750 mg PO Q4H PRN PRN Reason: Heartburn Clonidine (Clonidine 0.1 Mg Patch.Tdwk) 0.1 mg TRANSDERMA Tu@0900 [facility]; Protocol Last Admin: 06/09/24 08:12 Dose: 0.1 mg Documented By: LATRICIA Enoxaparin Sodium (Enoxaparin Sodium 40 Mg/0.4 Ml Syringe) 40 mg SUBCUT Q24H [facility] Last Admin: 06/08/24 17:21 Dose: 40 mg Documented By: IRWIN Loperamide HCl (Loperamide Hcl 2 Mg Capsule) 2 mg PO Q4H PRN PRN Reason: Diarrhea Last Admin: 04/27/24 15:22 Dose: 2 mg Documented By: JESSICA Magnesium Hydroxide (Milk Of Magnesia 30 Ml Oral.Susp) 30 ml PO DAILY PRN PRN Reason: Constipation Melatonin (Melatonin 3 Mg Tablet) 6 mg PO BEDTIME PRN PRN Reason: Insomnia Last Admin: 04/29/24 19:24 Dose: 6 mg Miconazole Nitrate (Miconazole Nitrate 2% Powder 85 Gm Bottle) 1 appl TOPICAL BID [facility]; Protocol Last Admin: 06/09/24 08:12 Dose: 1 appl Documented By: LATRICIA Nicotine Polacrilex (Nicotine Polacrilex 2 Mg Gum) 4 mg BUCCAL Q2H PRN PRN Reason: Nicotine Cravings Ondansetron HCl (Ondansetron Hcl 4 Mg/2 Ml Vial) 4 mg IVPUSH Q8H PRN PRN Reason: Nausea and Vomiting Last Admin: 03/02/24 18:44 Dose: 4 mg Documented By: SEN Ondansetron HCl (Ondansetron Odt 4 Mg Tab.Rapdis) 4 mg TRANSLINGU Q6H PRN PRN Reason: Nausea and Vomiting Last Admin: 04/08/24 19:57 Dose: 4 mg Documented By: GERARDO-ZADRT Trazodone HCl (Trazodone Hcl 25 Mg Halftab) 25 mg PO BEDTIME PRN PRN Reason: Insomnia Last Admin: 04/29/24 19:24 Dose: 25 mg Labs 06/05/24 10:53 06/05/24 10:53 Assessment and Plan (1) Cognitive and behavioral changes: Status: Acute Assessment and Plan: 83M PMH htn, unspecified dementia, [facility] 02[facility]13[facility]24 for FTT, not taking meds or food, transfered to medicine 02/14/24. 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 Re-consult if any further concerns. check routine labs bmp, cbc today DVT prophylaxis with Lovenox Full Code reason for continued hospitalization: Safe dispo routine labs on 06/05, cbc, bmp ok The patient HCP is his step-daughter Alcides can be reached on [phone] Patient sister name is Dr. Nate Genao and her phone number is [phone] to be contacted for any updates. Quality Stroke Does the patient have a stroke diagnosis?: No VTE Prior VTE?: No VTE Risk Level:: Medical - moderate - high VTE Device Contraindication: Treatment Not Indicated VTE Drug Contraindication: N/A - Med Ordered
[2024-06-09 15:23] VITALS: BP 169/90; PULSE 68; RESP 18; TEMP 37.1; O2SAT 96
[2024-06-09] MEDS: Enoxaparin Sodium 40 MG/0.4 ML SYRINGE SUBCUT (16:29)
[2024-06-09 23:23] VITALS: BP 147/84; PULSE 64; RESP 16; TEMP 36.3; O2SAT 96
--- NOTE | 2024-06-10 07:18 | HO.PM.IMPN ---
Subjective Subjective Date of Service: 06/10/24 Interval History: Follow up placement Stable with no new issues Physical Exam Vital Signs: Vital Signs: Last Vital Signs Temp 97.4 F 06/09/24 23:23 Pulse 64 06/09/24 23:23 Resp 16 06/09/24 23:23 BP 147/84 H 06/09/24 23:23 Pulse Ox 96 06/09/24 23:23 O2 Del Method Room Air 06/09/24 23:23 O2 Flow Rate 2 03/28/24 07:24 BMI result Body Mass Index 19.6 Appearing in no acute distress lung sounds are clear to auscultation heart regular rate rhythm, clear S1, S2 positive bowel sounds, abdomen is soft, nontender neuro patient is alert Objective Data Active Medications Acetaminophen (Acetaminophen 325 Mg Tablet) 650 mg PO Q6H PRN PRN Reason: Pain, Mild (Pain Scale 1-3), fever or headache Last Admin: 05/02/24 13:31 Dose: 650 mg Al Hydroxide/Mg Hydroxide (Magnesium Hydrox/Alum Hydrox 30 Ml Oral.Susp) 30 ml PO Q6H PRN PRN Reason: Constipation Benzonatate (Benzonatate 100 Mg Capsule) 100 mg PO TID PRN PRN Reason: Cough Calcium Carbonate (Calcium Carbonate 750 Mg Tab.Chew) 750 mg PO Q4H PRN PRN Reason: Heartburn Clonidine (Clonidine 0.1 Mg Patch.Tdwk) 0.1 mg TRANSDERMA Tu@0900 [facility]; Protocol Last Admin: 06/09/24 08:12 Dose: 0.1 mg Documented By: LATRICIA Enoxaparin Sodium (Enoxaparin Sodium 40 Mg/0.4 Ml Syringe) 40 mg SUBCUT Q24H [facility] Last Admin: 06/09/24 16:29 Dose: 40 mg Documented By: CELINE Loperamide HCl (Loperamide Hcl 2 Mg Capsule) 2 mg PO Q4H PRN PRN Reason: Diarrhea Last Admin: 04/27/24 15:22 Dose: 2 mg Documented By: JESSICA Magnesium Hydroxide (Milk Of Magnesia 30 Ml Oral.Susp) 30 ml PO DAILY PRN PRN Reason: Constipation Melatonin (Melatonin 3 Mg Tablet) 6 mg PO BEDTIME PRN PRN Reason: Insomnia Last Admin: 04/29/24 19:24 Dose: 6 mg Miconazole Nitrate (Miconazole Nitrate 2% Powder 85 Gm Bottle) 1 appl TOPICAL BID [facility]; Protocol Last Admin: 06/09/24 20:01 Dose: 1 appl Documented By: JEZ Nicotine Polacrilex (Nicotine Polacrilex 2 Mg Gum) 4 mg BUCCAL Q2H PRN PRN Reason: Nicotine Cravings Ondansetron HCl (Ondansetron Hcl 4 Mg/2 Ml Vial) 4 mg IVPUSH Q8H PRN PRN Reason: Nausea and Vomiting Last Admin: 03/02/24 18:44 Dose: 4 mg Documented By: SEN Ondansetron HCl (Ondansetron Odt 4 Mg Tab.Rapdis) 4 mg TRANSLINGU Q6H PRN PRN Reason: Nausea and Vomiting Last Admin: 04/08/24 19:57 Dose: 4 mg Documented By: GERARDO-ZADRNeville Trazodone HCl (Trazodone Hcl 25 Mg Halftab) 25 mg PO BEDTIME PRN PRN Reason: Insomnia Last Admin: 04/29/24 19:24 Dose: 25 mg Labs 06/05/24 10:53 06/05/24 10:53 Assessment and Plan (1) Cognitive and behavioral changes: Status: Acute Assessment and Plan: 83M PMH htn, unspecified dementia, admitted to [facility] 02/13/24 for FTT, not taking meds or food. Transferred to medicine 02/14/24. 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 Re-consult if any further concerns. DVT prophylaxis with Lovenox Full Code reason for continued hospitalization: Safe dispo The patient HCP is his step-daughter Alcides can be reached on [phone] Patient sister name is Dr. Nate Genao and her phone number is [phone] to be contacted for any updates. Quality Stroke Does the patient have a stroke diagnosis?: No VTE Prior VTE?: No VTE Risk Level:: Medical - moderate - high VTE Device Contraindication: Treatment Not Indicated VTE Drug Contraindication: N/A - Med Ordered
[2024-06-10 07:42] VITALS: BP 131/67; PULSE 57; RESP 16; TEMP 36.2; O2SAT 97
[2024-06-10] MEDS: Miconazole Nitrate 2% Powder 85 GM Bottle 1 APPL TOPICAL ×2 (09:50→21:00)
[2024-06-10 15:32] VITALS: BP 152/81; PULSE 69; RESP 16; TEMP 36.8; O2SAT 95
[2024-06-10] MEDS: Enoxaparin Sodium 40 MG/0.4 ML SYRINGE SUBCUT (16:05)
--- NOTE | 2024-06-10 16:33 | MHC.CM.PN ---
Per MD rounds patient is ready to discharge. Barrier is insurance for LTC. CM will continue to follow for discharge.
[2024-06-10 18:52] VITALS: BP 151/70; PULSE 68; RESP 20; TEMP 36.6; O2SAT 95
[2024-06-10 23:29] VITALS: BP 134/68; PULSE 53; RESP 16; TEMP 36.5; O2SAT 97
[2024-06-11 04:12] VITALS: RESP 18
[2024-06-11 07:41] VITALS: BP 129/67; PULSE 54; RESP 16; TEMP 36.2; O2SAT 97
[2024-06-11] MEDS: Miconazole Nitrate 2% Powder 85 GM Bottle 1 APPL TOPICAL ×2 (08:03→20:45)
--- NOTE | 2024-06-11 14:21 | HO.PM.IMPN ---
Subjective Subjective Date of Service: 06/11/24 Interval History: seen and examined this morning follow up for placement patient awake, alert; eating breakfast Physical Exam Vital Signs: Vital Signs: Last Vital Signs Temp 97.2 F 06/11/24 07:41 Pulse 54 06/11/24 07:41 Resp 16 06/11/24 07:41 BP 129/67 06/11/24 07:41 Pulse Ox 97 06/11/24 07:41 O2 Del Method Room Air 06/11/24 07:41 O2 Flow Rate 2 03/28/24 07:24 BMI result Body Mass Index 19.6 Const: General: alert and awake Nutritional Appearance: thin Resp: Effort & Inspection: normal respiratory effort, no respiratory distress and no use of accessory muscles GI: Inspection: No distended Palpation (GI): nontender Neuro: Other: alert Objective Data Active Medications Acetaminophen (Acetaminophen 325 Mg Tablet) 650 mg PO Q6H PRN PRN Reason: Pain, Mild (Pain Scale 1-3), fever or headache Last Admin: 05/02/24 13:31 Dose: 650 mg Al Hydroxide/Mg Hydroxide (Magnesium Hydrox/Alum Hydrox 30 Ml Oral.Susp) 30 ml PO Q6H PRN PRN Reason: Constipation Benzonatate (Benzonatate 100 Mg Capsule) 100 mg PO TID PRN PRN Reason: Cough Calcium Carbonate (Calcium Carbonate 750 Mg Tab.Chew) 750 mg PO Q4H PRN PRN Reason: Heartburn Clonidine (Clonidine 0.1 Mg Patch.Tdwk) 0.1 mg TRANSDERMA Tu@0900 [facility]; Protocol Last Admin: 06/09/24 08:12 Dose: 0.1 mg Documented By: LATRICIA Enoxaparin Sodium (Enoxaparin Sodium 40 Mg/0.4 Ml Syringe) 40 mg SUBCUT Q24H [facility] Last Admin: 06/10/24 16:05 Dose: 40 mg Documented By: FIONA Loperamide HCl (Loperamide Hcl 2 Mg Capsule) 2 mg PO Q4H PRN PRN Reason: Diarrhea Last Admin: 04/27/24 15:22 Dose: 2 mg Documented By: JESSICA Magnesium Hydroxide (Milk Of Magnesia 30 Ml Oral.Susp) 30 ml PO DAILY PRN PRN Reason: Constipation Melatonin (Melatonin 3 Mg Tablet) 6 mg PO BEDTIME PRN PRN Reason: Insomnia Last Admin: 04/29/24 19:24 Dose: 6 mg Miconazole Nitrate (Miconazole Nitrate 2% Powder 85 Gm Bottle) 1 appl TOPICAL BID [facility]; Protocol Last Admin: 06/11/24 08:03 Dose: 1 appl Documented By: FIONA Nicotine Polacrilex (Nicotine Polacrilex 2 Mg Gum) 4 mg BUCCAL Q2H PRN PRN Reason: Nicotine Cravings Ondansetron HCl (Ondansetron Hcl 4 Mg/2 Ml Vial) 4 mg IVPUSH Q8H PRN PRN Reason: Nausea and Vomiting Last Admin: 03/02/24 18:44 Dose: 4 mg Documented By: SEN Ondansetron HCl (Ondansetron Odt 4 Mg Tab.Rapdis) 4 mg TRANSLINGU Q6H PRN PRN Reason: Nausea and Vomiting Last Admin: 04/08/24 19:57 Dose: 4 mg Documented By: N-ZADRT Trazodone HCl (Trazodone Hcl 25 Mg Halftab) 25 mg PO BEDTIME PRN PRN Reason: Insomnia Last Admin: 04/29/24 19:24 Dose: 25 mg Labs 06/05/24 10:53 06/05/24 10:53 Assessment and Plan (1) Dementia with behavioral disturbance: Status: Acute (2) Cognitive and behavioral changes: Status: Acute Assessment and Plan: This is an 83M PMH htn, unspecified dementia, admitted to [facility] 02/13/24 for FTT, not taking meds or food. Transferred to medicine 02/14/24. 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 Re-consult if any further concerns. DVT prophylaxis with Lovenox Full Code reason for continued hospitalization: Safe dispo The patient HCP is his step-daughter Alcides can be reached on Patient sister name is Dr. Nate Genao and her phone number is to be contacted for any updates. Quality Stroke Does the patient have a stroke diagnosis?: No VTE Prior VTE?: No VTE Risk Level:: Medical - moderate - high VTE Device Contraindication: Treatment Not Indicated VTE Drug Contraindication: N/A - Med Ordered
[2024-06-11 15:31] VITALS: BP 143/84; PULSE 71; RESP 20; TEMP 36.6; O2SAT 93
[2024-06-11] MEDS: Enoxaparin Sodium 40 MG/0.4 ML SYRINGE SUBCUT (15:51)
[2024-06-11 23:31] VITALS: BP 134/68; PULSE 58; RESP 16; TEMP 36.3; O2SAT 95
[2024-06-12 05:56] LABS: Hematocrit 44.3 % (42.0-52.0); Hemoglobin 15.3 g/dl (14.0-18.0); Mean Corpuscular HGB Conc 34.5 g/dl (31.0-36.0); Mean Corpuscular Hemoglobin 32.1 pg (27.0-33.0); Mean Corpuscular Volume 92.9 fL (80.0-98.0); Mean Platelet Volume 10.2 fL (9.4-12.4); Platelet Count 239 X10*3/uL (160-400); Red Blood Count 4.77 X10*6/uL (4.60-5.80); White Blood Count 7.6 X10*3/uL (4.8-10.8)
[2024-06-12 06:10] LABS: Anion Gap 11 (12-20); Blood Urea Nitrogen 22 mg/dL (9-16); Calcium 9.6 mg/dL (8.4-10.2); Carbon Dioxide 25 mmol/L (22-29); Chloride 112 mmol/L (96-108); Creatinine Clr Calc Pharmacy 81.2; Estimated Glomerular Filt Rate > 60; Glucose Random 92 mg/dL (60-115); Potassium 4.2 mmol/L (3.3-5.1); Sodium 144 mmol/L (135-145)
[2024-06-12] MEDS: Miconazole Nitrate 2% Powder 85 GM Bottle 1 APPL TOPICAL ×2 (07:50→20:13)
[2024-06-12 08:00] VITALS: BP 146/70; PULSE 55; RESP 16; TEMP 36.3; O2SAT 97
--- NOTE | 2024-06-12 12:28 | MHC.CM.PN ---
PATIENT CONTINUES TO AWAIT [facility] FOR LTC PLACEMENT. CM WILL CONTINUE TO FOLLOW.
[2024-06-12 15:02] VITALS: BP 142/77; PULSE 75; RESP 18; TEMP 36.8; O2SAT 95
[2024-06-12] MEDS: Enoxaparin Sodium 40 MG/0.4 ML SYRINGE SUBCUT (15:55)
--- NOTE | 2024-06-12 17:05 | P.PNIM_ITS ---
Subjective Subjective Date of Service: 06/12/24 Interval History: seen and examined this morning follow up for placement no overnight events pt awake, alert Physical Exam 2 Vital Signs: Vital Signs: Last Vital Signs Temp 98.3 F 06/12/24 15:02 Pulse 75 06/12/24 15:02 Resp 18 06/12/24 15:02 BP 142/77 H 06/12/24 15:02 Pulse Ox 95 06/12/24 15:02 O2 Del Method Room Air 06/12/24 15:02 O2 Flow Rate 2 03/28/24 07:24 BMI result Body Mass Index 19.6 Const: General: comfortable, no acute distress, alert and awake Nutritional Appearance: thin Orientation/consciousness: oriented to person Resp: Effort & Inspection: normal respiratory effort, no respiratory distress and no use of accessory muscles GI: Inspection: No distended Palpation (GI): nontender Neuro: Other: grossly nonfocal General: oriented to person Extrem: General: Yes no pedal edema Objective Data Active Medications Acetaminophen (Acetaminophen 325 Mg Tablet) 650 mg PO Q6H PRN PRN Reason: Pain, Mild (Pain Scale 1-3), fever or headache Last Admin: 05/02/24 13:31 Dose: 650 mg Al Hydroxide/Mg Hydroxide (Magnesium Hydrox/Alum Hydrox 30 Ml Oral.Susp) 30 ml PO Q6H PRN PRN Reason: Constipation Benzonatate (Benzonatate 100 Mg Capsule) 100 mg PO TID PRN PRN Reason: Cough Calcium Carbonate (Calcium Carbonate 750 Mg Tab.Chew) 750 mg PO Q4H PRN PRN Reason: Heartburn Clonidine (Clonidine 0.1 Mg Patch.Tdwk) 0.1 mg TRANSDERMA Tu@0900 [facility]; Protocol Last Admin: 06/09/24 08:12 Dose: 0.1 mg Documented By: LATRICIA Enoxaparin Sodium (Enoxaparin Sodium 40 Mg/0.4 Ml Syringe) 40 mg SUBCUT Q24H [facility] Last Admin: 06/12/24 15:55 Dose: 40 mg Documented By: GISSELLE Loperamide HCl (Loperamide Hcl 2 Mg Capsule) 2 mg PO Q4H PRN PRN Reason: Diarrhea Last Admin: 04/27/24 15:22 Dose: 2 mg Documented By: JESSICA Magnesium Hydroxide (Milk Of Magnesia 30 Ml Oral.Susp) 30 ml PO DAILY PRN PRN Reason: Constipation Melatonin (Melatonin 3 Mg Tablet) 6 mg PO BEDTIME PRN PRN Reason: Insomnia Last Admin: 04/29/24 19:24 Dose: 6 mg Miconazole Nitrate (Miconazole Nitrate 2% Powder 85 Gm Bottle) 1 appl TOPICAL BID [facility]; Protocol Last Admin: 06/12/24 07:50 Dose: 1 appl Documented By: THOM Nicotine Polacrilex (Nicotine Polacrilex 2 Mg Gum) 4 mg BUCCAL Q2H PRN PRN Reason: Nicotine Cravings Ondansetron HCl (Ondansetron Hcl 4 Mg/2 Ml Vial) 4 mg IVPUSH Q8H PRN PRN Reason: Nausea and Vomiting Last Admin: 03/02/24 18:44 Dose: 4 mg Documented By: SEN Ondansetron HCl (Ondansetron Odt 4 Mg Tab.Rapdis) 4 mg TRANSLINGU Q6H PRN PRN Reason: Nausea and Vomiting Last Admin: 04/08/24 19:57 Dose: 4 mg Documented By: GERARDO-ZADRNeville Trazodone HCl (Trazodone Hcl 25 Mg Halftab) 25 mg PO BEDTIME PRN PRN Reason: Insomnia Last Admin: 04/29/24 19:24 Dose: 25 mg Labs 06/12/24 05:40 06/12/24 05:40 Labs: Laboratory Results - last 24 hr 06/12/24 05:40 MCV 92.9 MCH 32.1 MCHC 34.5 RDW 14.0 Plt Count 239 MPV 10.2 Absolute Nucleated RBC 0.000 Nucleated RBC % (auto) 0.0 Anion Gap 11 L Estim Creat Clear Calc 81.2 Estimated GFR > 60 Random Glucose 92 Calcium 9.6 Assessment and Plan (1) Cognitive and behavioral changes: Status: Acute Assessment and Plan: This is an 83M PMH htn, unspecified dementia, admitted to [facility] 02/13/24 for FTT, not taking meds or food. Transferred to medicine 02/14/24. 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 Re-consult if any further concerns. DVT prophylaxis with Lovenox Full Code reason for continued hospitalization: awaiting guardianship for LTC placement The patient HCP is his step-daughter Alcides can be reached on Patient sister name is Dr. Nate Genao and her phone number is to be contacted for any updates. Quality Stroke Does the patient have a stroke diagnosis?: No VTE Prior VTE?: No VTE Risk Level:: Medical - moderate - high VTE Device Contraindication: Treatment Not Indicated VTE Drug Contraindication: N/A - Med Ordered
[2024-06-12 23:38] VITALS: BP 157/54; PULSE 61; RESP 16; TEMP 36.5; O2SAT 98
[2024-06-13 07:42] VITALS: BP 128/68; PULSE 61; RESP 16; TEMP 36.2; O2SAT 98
[2024-06-13] MEDS: Miconazole Nitrate 2% Powder 85 GM Bottle 1 APPL TOPICAL ×2 (09:27→21:00)
--- NOTE | 2024-06-13 13:36 | P.PNIM_ITS ---
Subjective Subjective Date of Service: 06/13/24 Interval History: seen and examined this morning follow up for placement no overnight events awake, alert; at baseline Review of Systems Review of Systems: Yes all other systems are reviewed and are negative Constitutional Constitutional: Denies chills and Denies fever(s) Physical Exam 2 Vital Signs: Vital Signs: Last Vital Signs Temp 97.1 F 06/13/24 07:42 Pulse 61 06/13/24 07:42 Resp 16 06/13/24 07:42 BP 128/68 06/13/24 07:42 Pulse Ox 98 06/13/24 07:42 O2 Del Method Room Air 06/13/24 07:42 O2 Flow Rate 2 03/28/24 07:24 BMI result Body Mass Index 19.6 Const: General: comfortable, no acute distress, alert and awake Nutritional Appearance: thin Orientation/consciousness: oriented to person Resp: Effort & Inspection: normal respiratory effort, no respiratory distress and no use of accessory muscles GI: Inspection: No distended Palpation (GI): nontender Neuro: Other: grossly nonfocal General: oriented to person Extrem: General: Yes no pedal edema Objective Data Active Medications Acetaminophen (Acetaminophen 325 Mg Tablet) 650 mg PO Q6H PRN PRN Reason: Pain, Mild (Pain Scale 1-3), fever or headache Last Admin: 05/02/24 13:31 Dose: 650 mg Al Hydroxide/Mg Hydroxide (Magnesium Hydrox/Alum Hydrox 30 Ml Oral.Susp) 30 ml PO Q6H PRN PRN Reason: Constipation Benzonatate (Benzonatate 100 Mg Capsule) 100 mg PO TID PRN PRN Reason: Cough Calcium Carbonate (Calcium Carbonate 750 Mg Tab.Chew) 750 mg PO Q4H PRN PRN Reason: Heartburn Clonidine (Clonidine 0.1 Mg Patch.Tdwk) 0.1 mg TRANSDERMA Tu@0900 [facility]; Protocol Last Admin: 06/09/24 08:12 Dose: 0.1 mg Documented By: LATRICIA Enoxaparin Sodium (Enoxaparin Sodium 40 Mg/0.4 Ml Syringe) 40 mg SUBCUT Q24H [facility] Last Admin: 06/12/24 15:55 Dose: 40 mg Documented By: GISSELLE Loperamide HCl (Loperamide Hcl 2 Mg Capsule) 2 mg PO Q4H PRN PRN Reason: Diarrhea Last Admin: 04/27/24 15:22 Dose: 2 mg Documented By: JESSICA Magnesium Hydroxide (Milk Of Magnesia 30 Ml Oral.Susp) 30 ml PO DAILY PRN PRN Reason: Constipation Melatonin (Melatonin 3 Mg Tablet) 6 mg PO BEDTIME PRN PRN Reason: Insomnia Last Admin: 04/29/24 19:24 Dose: 6 mg Miconazole Nitrate (Miconazole Nitrate 2% Powder 85 Gm Bottle) 1 appl TOPICAL BID [facility]; Protocol Last Admin: 06/13/24 09:27 Dose: 1 appl Documented By: CELINE Nicotine Polacrilex (Nicotine Polacrilex 2 Mg Gum) 4 mg BUCCAL Q2H PRN PRN Reason: Nicotine Cravings Ondansetron HCl (Ondansetron Hcl 4 Mg/2 Ml Vial) 4 mg IVPUSH Q8H PRN PRN Reason: Nausea and Vomiting Last Admin: 03/02/24 18:44 Dose: 4 mg Documented By: SEN Ondansetron HCl (Ondansetron Odt 4 Mg Tab.Rapdis) 4 mg TRANSLINGU Q6H PRN PRN Reason: Nausea and Vomiting Last Admin: 04/08/24 19:57 Dose: 4 mg Documented By: GERARDO-ZADRNeville Trazodone HCl (Trazodone Hcl 25 Mg Halftab) 25 mg PO BEDTIME PRN PRN Reason: Insomnia Last Admin: 04/29/24 19:24 Dose: 25 mg Labs 06/12/24 05:40 06/12/24 05:40 Assessment and Plan (1) Cognitive and behavioral changes: Status: Acute Assessment and Plan: This is an 83M PMH htn, unspecified dementia, admitted to [facility] 02/13/24 for FTT, not taking meds or food. Transferred to medicine 02/14/24. 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 Re-consult if any further concerns. DVT prophylaxis with Lovenox Full Code reason for continued hospitalization: awaiting guardianship for LTC placement The patient HCP is his step-daughter Alcides can be reached on Patient sister name is Dr. Nate Genao and her phone number is to be contacted for any updates. Quality Stroke Does the patient have a stroke diagnosis?: No VTE Prior VTE?: No VTE Risk Level:: Medical - moderate - high VTE Device Contraindication: Treatment Not Indicated VTE Drug Contraindication: N/A - Med Ordered
[2024-06-13 15:23] VITALS: BP 162/75; PULSE 63; RESP 18; TEMP 36.4; O2SAT 96
[2024-06-13] MEDS: Enoxaparin Sodium 40 MG/0.4 ML SYRINGE SUBCUT (16:04)
[2024-06-13 23:57] VITALS: BP 141/67; PULSE 59; RESP 18; TEMP 36.7; O2SAT 99
[2024-06-14 07:43] VITALS: BP 153/75; PULSE 67; RESP 16; TEMP 36.2; O2SAT 98
[2024-06-14] MEDS: Miconazole Nitrate 2% Powder 85 GM Bottle 1 APPL TOPICAL ×2 (08:59→20:58)
--- NOTE | 2024-06-14 13:49 | HO.PM.IMPN ---
Subjective Subjective Date of Service: 06/14/24 Interval History: seen and examined this morning follow up for placement no overnight events Physical Exam Vital Signs: Vital Signs: Last Vital Signs Temp 97.1 F 06/14/24 07:43 Pulse 67 06/14/24 07:43 Resp 16 06/14/24 07:43 BP 153/75 H 06/14/24 07:43 Pulse Ox 98 06/14/24 07:43 O2 Del Method Room Air 06/14/24 07:43 O2 Flow Rate 2 03/28/24 07:24 BMI result Body Mass Index 19.6 Const: General: comfortable, no acute distress, alert and awake Nutritional Appearance: thin Orientation/consciousness: oriented to person Resp: Effort & Inspection: normal respiratory effort, no respiratory distress and no use of accessory muscles GI: Inspection: No distended Palpation (GI): nontender Neuro: Other: grossly nonfocal General: oriented to person Extrem: General: Yes no pedal edema Objective Data Active Medications Acetaminophen (Acetaminophen 325 Mg Tablet) 650 mg PO Q6H PRN PRN Reason: Pain, Mild (Pain Scale 1-3), fever or headache Last Admin: 05/02/24 13:31 Dose: 650 mg Al Hydroxide/Mg Hydroxide (Magnesium Hydrox/Alum Hydrox 30 Ml Oral.Susp) 30 ml PO Q6H PRN PRN Reason: Constipation Benzonatate (Benzonatate 100 Mg Capsule) 100 mg PO TID PRN PRN Reason: Cough Calcium Carbonate (Calcium Carbonate 750 Mg Tab.Chew) 750 mg PO Q4H PRN PRN Reason: Heartburn Clonidine (Clonidine 0.1 Mg Patch.Tdwk) 0.1 mg TRANSDERMA Tu@0900 [facility]; Protocol Last Admin: 06/09/24 08:12 Dose: 0.1 mg Documented By: LATRICIA Enoxaparin Sodium (Enoxaparin Sodium 40 Mg/0.4 Ml Syringe) 40 mg SUBCUT Q24H [facility] Last Admin: 06/13/24 16:04 Dose: 40 mg Documented By: CELINE Loperamide HCl (Loperamide Hcl 2 Mg Capsule) 2 mg PO Q4H PRN PRN Reason: Diarrhea Last Admin: 04/27/24 15:22 Dose: 2 mg Documented By: JESSICA Magnesium Hydroxide (Milk Of Magnesia 30 Ml Oral.Susp) 30 ml PO DAILY PRN PRN Reason: Constipation Melatonin (Melatonin 3 Mg Tablet) 6 mg PO BEDTIME PRN PRN Reason: Insomnia Last Admin: 04/29/24 19:24 Dose: 6 mg Miconazole Nitrate (Miconazole Nitrate 2% Powder 85 Gm Bottle) 1 appl TOPICAL BID [facility]; Protocol Last Admin: 06/14/24 08:59 Dose: 1 appl Documented By: KRANTHIINNM Nicotine Polacrilex (Nicotine Polacrilex 2 Mg Gum) 4 mg BUCCAL Q2H PRN PRN Reason: Nicotine Cravings Ondansetron HCl (Ondansetron Hcl 4 Mg/2 Ml Vial) 4 mg IVPUSH Q8H PRN PRN Reason: Nausea and Vomiting Last Admin: 03/02/24 18:44 Dose: 4 mg Documented By: SEN Ondansetron HCl (Ondansetron Odt 4 Mg Tab.Rapdis) 4 mg TRANSLINGU Q6H PRN PRN Reason: Nausea and Vomiting Last Admin: 04/08/24 19:57 Dose: 4 mg Documented By: GERARDO-ZADRNeville Trazodone HCl (Trazodone Hcl 25 Mg Halftab) 25 mg PO BEDTIME PRN PRN Reason: Insomnia Last Admin: 04/29/24 19:24 Dose: 25 mg Labs 06/12/24 05:40 06/12/24 05:40 Assessment and Plan (1) Cognitive and behavioral changes: Status: Acute Assessment and Plan: This is an 83M PMH htn, unspecified dementia, admitted to [facility] 02/13/24 for FTT, not taking meds or food. Transferred to medicine 02/14/24. 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 Re-consult if any further concerns. DVT prophylaxis with Lovenox Full Code reason for continued hospitalization: awaiting guardianship for LTC placement The patient HCP is his step-daughter Alcides can be reached on Patient sister name is Dr. Nate Genao and her phone number is to be contacted for any updates. Quality Stroke Does the patient have a stroke diagnosis?: No VTE Prior VTE?: No VTE Risk Level:: Medical - moderate - high VTE Device Contraindication: Treatment Not Indicated VTE Drug Contraindication: N/A - Med Ordered
[2024-06-14] MEDS: Enoxaparin Sodium 40 MG/0.4 ML SYRINGE SUBCUT (15:07)
[2024-06-14 15:17] VITALS: BP 135/74; PULSE 67; RESP 16; TEMP 36.4; O2SAT 96
[2024-06-15] VITALS: BP 120/62; PULSE 70; RESP 16; TEMP 36.5; O2SAT 95
[2024-06-15 08:00] VITALS: BP 139/75; PULSE 58; RESP 16; TEMP 36.1; O2SAT 92
--- NOTE | 2024-06-15 08:56 | P.PNIM_ITS ---
Subjective Subjective Date of Service: 06/15/24 Interval History: seen and examined this morning follow up for placement no overnight events Physical Exam 2 Vital Signs: Vital Signs: Last Vital Signs Temp 97.0 F 06/15/24 08:00 Pulse 58 06/15/24 08:00 Resp 16 06/15/24 08:00 BP 139/75 06/15/24 08:00 Pulse Ox 92 06/15/24 08:00 O2 Del Method Room Air 06/15/24 08:00 O2 Flow Rate 2 03/28/24 07:24 BMI result Body Mass Index 19.6 Appearing in no acute distress lung sounds are clear to auscultation heart regular rate rhythm, clear S1, S2 positive bowel sounds, abdomen is soft, nontender neuro patient is alert x3, no focal deficits Objective Data Active Medications Acetaminophen (Acetaminophen 325 Mg Tablet) 650 mg PO Q6H PRN PRN Reason: Pain, Mild (Pain Scale 1-3), fever or headache Last Admin: 05/02/24 13:31 Dose: 650 mg Al Hydroxide/Mg Hydroxide (Magnesium Hydrox/Alum Hydrox 30 Ml Oral.Susp) 30 ml PO Q6H PRN PRN Reason: Constipation Benzonatate (Benzonatate 100 Mg Capsule) 100 mg PO TID PRN PRN Reason: Cough Calcium Carbonate (Calcium Carbonate 750 Mg Tab.Chew) 750 mg PO Q4H PRN PRN Reason: Heartburn Clonidine (Clonidine 0.1 Mg Patch.Tdwk) 0.1 mg TRANSDERMA Tu@0900 [facility]; Protocol Last Admin: 06/09/24 08:12 Dose: 0.1 mg Documented By: LATRICIA Enoxaparin Sodium (Enoxaparin Sodium 40 Mg/0.4 Ml Syringe) 40 mg SUBCUT Q24H [facility] Last Admin: 06/14/24 15:07 Dose: 40 mg Documented By: CELINE Loperamide HCl (Loperamide Hcl 2 Mg Capsule) 2 mg PO Q4H PRN PRN Reason: Diarrhea Last Admin: 04/27/24 15:22 Dose: 2 mg Documented By: JESSICA Magnesium Hydroxide (Milk Of Magnesia 30 Ml Oral.Susp) 30 ml PO DAILY PRN PRN Reason: Constipation Melatonin (Melatonin 3 Mg Tablet) 6 mg PO BEDTIME PRN PRN Reason: Insomnia Last Admin: 04/29/24 19:24 Dose: 6 mg Miconazole Nitrate (Miconazole Nitrate 2% Powder 85 Gm Bottle) 1 appl TOPICAL BID [facility]; Protocol Last Admin: 06/14/24 20:58 Dose: 1 appl Documented By: PATRICK Nicotine Polacrilex (Nicotine Polacrilex 2 Mg Gum) 4 mg BUCCAL Q2H PRN PRN Reason: Nicotine Cravings Ondansetron HCl (Ondansetron Hcl 4 Mg/2 Ml Vial) 4 mg IVPUSH Q8H PRN PRN Reason: Nausea and Vomiting Last Admin: 03/02/24 18:44 Dose: 4 mg Documented By: SEN Ondansetron HCl (Ondansetron Odt 4 Mg Tab.Rapdis) 4 mg TRANSLINGU Q6H PRN PRN Reason: Nausea and Vomiting Last Admin: 04/08/24 19:57 Dose: 4 mg Documented By: GERARDO-ZADRT Trazodone HCl (Trazodone Hcl 25 Mg Halftab) 25 mg PO BEDTIME PRN PRN Reason: Insomnia Last Admin: 04/29/24 19:24 Dose: 25 mg Labs 06/12/24 05:40 06/12/24 05:40 Assessment and Plan (1) Cognitive and behavioral changes: Status: Acute Assessment and Plan: 83M PMH htn, unspecified dementia, admitted to [facility] 02/13/24 for FTT, not taking meds or food. Transferred to medicine 02/14/24. 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 Re-consult if any further concerns. DVT prophylaxis with Lovenox Full Code reason for continued hospitalization: awaiting guardianship for LTC placement The patient HCP is his step-daughter Alcides can be reached on Patient sister name is Dr. Nate Genao and her phone number is to be contacted for any updates. Quality Stroke Does the patient have a stroke diagnosis?: No VTE Prior VTE?: No VTE Risk Level:: Medical - moderate - high VTE Device Contraindication: Treatment Not Indicated VTE Drug Contraindication: N/A - Med Ordered
[2024-06-15] MEDS: Miconazole Nitrate 2% Powder 85 GM Bottle 1 APPL TOPICAL ×2 (09:00→18:52)
--- NOTE | 2024-06-15 10:05 | MHC.CLN ---
F/U DIET=REGULAR, CHOPPED. CONTINUE SUPPLEMENTS: MAGIC CUP TID (870 KCALS, 27 G PROTEIN) AND ENSURE TID (1050 KCALS, 60 G PROTEIN). CONTINUES WITH VARIABLE INTAKE AT MEALS. DOES ACCEPT MAGIC CUP AND ENSURE. SKIN WITH REDNESS TO BUTTOCKS. CONTINUE CURRENT DIET AND SUPPLEMENTS AND ENCOURAGE PO INTAKE ABLE. RD TO FOLLOW UP WEEKLY.
[2024-06-15 13:00] VITALS: BMI 19.0
[2024-06-15] MEDS: Enoxaparin Sodium 40 MG/0.4 ML SYRINGE SUBCUT (15:14)
--- NOTE | 2024-06-15 15:37 | MHC.CM.PN ---
Patient is medically cleared for discharge. Guardianship is pending. CM will continue to follow. DP LTC via BLS.
[2024-06-15 15:42] VITALS: BP 128/62; PULSE 84; RESP 18; TEMP 36.5; O2SAT 93
[2024-06-16] VITALS: BP 119/61; PULSE 63; RESP 16; TEMP 36; O2SAT 95
[2024-06-16 07:41] VITALS: BP 122/79; PULSE 63; RESP 18; TEMP 36.3; O2SAT 97
[2024-06-16] MEDS: Miconazole Nitrate 2% Powder 85 GM Bottle 1 APPL TOPICAL (07:56)
[2024-06-16] MEDS: cloNIDine 0.1 MG PATCH.TDWK TRANSDERMA (07:56)
--- NOTE | 2024-06-16 08:56 | P.PNIM_ITS ---
Subjective Subjective Date of Service: 06/16/24 Review of Systems Follow up exam completed; patient pending placement Continues with confusion, resting comfortably, no acute events overnight Constitutional Does not appear to be in any acute distress Pt unable to participate in most of subjective assessment, confused, verbally nonsensical Cardiovascular Denies pain Physical Exam 2 Vital Signs: Vital Signs: Last Vital Signs Temp 97.4 F 06/16/24 07:41 Pulse 63 06/16/24 07:41 Resp 18 06/16/24 07:41 BP 122/79 06/16/24 07:41 Pulse Ox 97 06/16/24 07:41 O2 Del Method Room Air 06/16/24 07:41 O2 Flow Rate 2 03/28/24 07:24 BMI result Body Mass Index 19.0 Resp: Effort & Inspection: normal respiratory effort Auscultation: clear to auscultation bilaterally and diminished lung sounds bilateral in the lower lung soto Cardio: Rate: regular rate Rhythm: regular rhythm GI: Inspection: Yes normal to inspection Auscultation: normal bowel sounds Psych: Other: confused Attitude: cooperative Objective Data Active Medications Acetaminophen (Acetaminophen 325 Mg Tablet) 650 mg PO Q6H PRN PRN Reason: Pain, Mild (Pain Scale 1-3), fever or headache Last Admin: 05/02/24 13:31 Dose: 650 mg Al Hydroxide/Mg Hydroxide (Magnesium Hydrox/Alum Hydrox 30 Ml Oral.Susp) 30 ml PO Q6H PRN PRN Reason: Constipation Benzonatate (Benzonatate 100 Mg Capsule) 100 mg PO TID PRN PRN Reason: Cough Calcium Carbonate (Calcium Carbonate 750 Mg Tab.Chew) 750 mg PO Q4H PRN PRN Reason: Heartburn Clonidine (Clonidine 0.1 Mg Patch.Tdwk) 0.1 mg TRANSDERMA Tu@0900 [facility]; Protocol Last Admin: 06/16/24 07:56 Dose: 0.1 mg Documented By: FIONA Enoxaparin Sodium (Enoxaparin Sodium 40 Mg/0.4 Ml Syringe) 40 mg SUBCUT Q24H [facility] Last Admin: 06/15/24 15:14 Dose: 40 mg Documented By: CELINE Loperamide HCl (Loperamide Hcl 2 Mg Capsule) 2 mg PO Q4H PRN PRN Reason: Diarrhea Last Admin: 04/27/24 15:22 Dose: 2 mg Documented By: JESSICA Magnesium Hydroxide (Milk Of Magnesia 30 Ml Oral.Susp) 30 ml PO DAILY PRN PRN Reason: Constipation Melatonin (Melatonin 3 Mg Tablet) 6 mg PO BEDTIME PRN PRN Reason: Insomnia Last Admin: 04/29/24 19:24 Dose: 6 mg Miconazole Nitrate (Miconazole Nitrate 2% Powder 85 Gm Bottle) 1 appl TOPICAL BID [facility]; Protocol Last Admin: 06/16/24 07:56 Dose: 1 appl Documented By: FIONA Nicotine Polacrilex (Nicotine Polacrilex 2 Mg Gum) 4 mg BUCCAL Q2H PRN PRN Reason: Nicotine Cravings Ondansetron HCl (Ondansetron Hcl 4 Mg/2 Ml Vial) 4 mg IVPUSH Q8H PRN PRN Reason: Nausea and Vomiting Last Admin: 03/02/24 18:44 Dose: 4 mg Documented By: SEN Ondansetron HCl (Ondansetron Odt 4 Mg Tab.Rapdis) 4 mg TRANSLINGU Q6H PRN PRN Reason: Nausea and Vomiting Last Admin: 04/08/24 19:57 Dose: 4 mg Documented By: GERARDO-ZADRT Trazodone HCl (Trazodone Hcl 25 Mg Halftab) 25 mg PO BEDTIME PRN PRN Reason: Insomnia Last Admin: 04/29/24 19:24 Dose: 25 mg Labs 06/12/24 05:40 06/12/24 05:40 Assessment and Plan (1) Encephalopathy: Status: Acute Plan 83M PMH htn, unspecified dementia, admitted to [facility] 02/13/24 for FTT, not taking meds or food. Transferred to medicine 02/14/24. 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 Re-consult if any further concerns. DVT prophylaxis with Lovenox Full Code reason for continued hospitalization: awaiting guardianship for LTC placement The patient HCP is his step-daughter Alcides can be reached on Patient sister name is Dr. Nate Genao and her phone number is to be contacted for any updates. Quality Stroke Does the patient have a stroke diagnosis?: No VTE Prior VTE?: No VTE Risk Level:: Medical - moderate - high VTE Device Contraindication: Treatment Not Indicated VTE Drug Contraindication: N/A - Med Ordered
--- NOTE | 2024-06-16 14:20 | PC.NURSE ---
Unable to use IS device.
--- NOTE | 2024-06-16 15:50 | MHC.CM.PN ---
GUARDIANSHIP PAPERWORK DELIVERED TO PT. GUARDIANSHIP HEARING SCHEDULED FOR 07/08/24 9 AM
[2024-06-16 16:00] VITALS: BP 149/91; PULSE 88; RESP 16; TEMP 36.8; O2SAT 93
[2024-06-16] MEDS: Enoxaparin Sodium 40 MG/0.4 ML SYRINGE SUBCUT (16:32)
--- NOTE | 2024-06-16 16:34 | PC.NURSE ---
Late Entry, noted skin tear on Left hand, unsure of date since bandage is not labeled.
[2024-06-17] VITALS: BP 141/78; PULSE 59; RESP 18; TEMP 36.3; O2SAT 96
--- NOTE | 2024-06-17 06:37 | PC.NURSE ---
Pt seen on bed dependent on care, responded when name called, no further engagemetn after, needs met, care rendered, slept well. Awaken in the morning, restless and attempting to get up, redirected and reoriented, pt became enraged, was able to redirected after.
[2024-06-17 07:20] VITALS: BP 134/64; PULSE 55; RESP 18; TEMP 36.2; O2SAT 96
--- NOTE | 2024-06-17 11:21 | P.PNIM_ITS ---
Subjective Subjective Date of Service: 06/17/24 Review of Systems Follow up exam completed; patient pending placement Continues with confusion, resting comfortably, no acute events overnight Constitutional Does not appear to be in any acute distress Pt unable to participate in most of subjective assessment, confused, verbally nonsensical Cardiovascular Denies pain Physical Exam 2 Vital Signs: Vital Signs: Last Vital Signs Temp 97.2 F 06/17/24 07:20 Pulse 55 06/17/24 07:20 Resp 18 06/17/24 07:20 BP 134/64 06/17/24 07:20 Pulse Ox 96 06/17/24 07:20 O2 Del Method Room Air 06/17/24 07:20 O2 Flow Rate 2 03/28/24 07:24 BMI result Body Mass Index 19.0 Objective Data Active Medications Acetaminophen (Acetaminophen 325 Mg Tablet) 650 mg PO Q6H PRN PRN Reason: Pain, Mild (Pain Scale 1-3), fever or headache Last Admin: 05/02/24 13:31 Dose: 650 mg Al Hydroxide/Mg Hydroxide (Magnesium Hydrox/Alum Hydrox 30 Ml Oral.Susp) 30 ml PO Q6H PRN PRN Reason: Constipation Benzonatate (Benzonatate 100 Mg Capsule) 100 mg PO TID PRN PRN Reason: Cough Calcium Carbonate (Calcium Carbonate 750 Mg Tab.Chew) 750 mg PO Q4H PRN PRN Reason: Heartburn Clonidine (Clonidine 0.1 Mg Patch.Tdwk) 0.1 mg TRANSDERMA Tu@0900 [facility]; Protocol Last Admin: 06/16/24 07:56 Dose: 0.1 mg Documented By: FIONA Enoxaparin Sodium (Enoxaparin Sodium 40 Mg/0.4 Ml Syringe) 40 mg SUBCUT Q24H [facility] Last Admin: 06/16/24 16:32 Dose: 40 mg Documented By: FIONA Loperamide HCl (Loperamide Hcl 2 Mg Capsule) 2 mg PO Q4H PRN PRN Reason: Diarrhea Last Admin: 04/27/24 15:22 Dose: 2 mg Documented By: JESSICA Magnesium Hydroxide (Milk Of Magnesia 30 Ml Oral.Susp) 30 ml PO DAILY PRN PRN Reason: Constipation Melatonin (Melatonin 3 Mg Tablet) 6 mg PO BEDTIME PRN PRN Reason: Insomnia Last Admin: 04/29/24 19:24 Dose: 6 mg Miconazole Nitrate (Miconazole Nitrate 2% Powder 85 Gm Bottle) 1 appl TOPICAL BID PRN; Protocol PRN Reason: yeast Nicotine Polacrilex (Nicotine Polacrilex 2 Mg Gum) 4 mg BUCCAL Q2H PRN PRN Reason: Nicotine Cravings Ondansetron HCl (Ondansetron Hcl 4 Mg/2 Ml Vial) 4 mg IVPUSH Q8H PRN PRN Reason: Nausea and Vomiting Last Admin: 03/02/24 18:44 Dose: 4 mg Documented By: SEN Ondansetron HCl (Ondansetron Odt 4 Mg Tab.Rapdis) 4 mg TRANSLINGU Q6H PRN PRN Reason: Nausea and Vomiting Last Admin: 04/08/24 19:57 Dose: 4 mg Documented By: GERARDO-ZADRT Trazodone HCl (Trazodone Hcl 25 Mg Halftab) 25 mg PO BEDTIME PRN PRN Reason: Insomnia Last Admin: 04/29/24 19:24 Dose: 25 mg Labs 06/12/24 05:40 06/12/24 05:40 Assessment and Plan (1) Encephalopathy: Status: Acute Plan 83M PMH htn, unspecified dementia, admitted to [facility] 02/13/24 for FTT, not taking meds or food. Transferred to medicine 02/14/24. 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 Re-consult if any further concerns. DVT prophylaxis with Lovenox Full Code reason for continued hospitalization: awaiting guardianship for LTC placement The patient HCP is his step-daughter Alcides can be reached on Patient sister name is Dr. Nate Genao and her phone number is to be contacted for any updates. Quality Stroke Does the patient have a stroke diagnosis?: No VTE Prior VTE?: No VTE Risk Level:: Medical - moderate - high VTE Device Contraindication: Treatment Not Indicated VTE Drug Contraindication: N/A - Med Ordered
--- NOTE | 2024-06-17 14:10 | MHC.CM.PN ---
[facility] HAS BEEN SCHEDULED FOR 07/08/24 AT 9 AM. CM CONTINUES TO FOLLOW FOR EVENTUAL LTC PLACEMENT.
--- NOTE | 2024-06-17 14:25 | PC.NURSE ---
Skin Tear Left Hand: Wound bed with graulation, gilmer wound bruised, scant bloody drainage, no c/o pain, no s/s infection, no odor. Tolerated well.
[2024-06-17] MEDS: Enoxaparin Sodium 40 MG/0.4 ML SYRINGE SUBCUT (15:08)
--- NOTE | 2024-06-17 15:23 | HO.WOUND ---
Wound Consult: Initial - New consult placed 84yr old?male admitted to [facility] on 02/14/24 - See progress notes and H&P for detailed history.? Wound consult placed for Left hand skin tear.? Arrival to bedside patient was agreeable to my assessment. Left hand skin tear noted with recent dressing change of xeroform and gauze wrap in place. Recommend continuing with current dressing. Left Hand Skin Tear - Cleanse with normal saline, pat dry. ?Apply Xeroform secure with Abd pads, gauze wrap and tape. Change Daily. ?Do not apply tape to patient?s skin.? Avoid Adhesive application to skin - when necessary, apply skin prep prior.? Re-consult wound care Nurse for wound deterioration or wound changes.
[2024-06-17 15:50] VITALS: BP 134/74; PULSE 67; RESP 16; TEMP 36.3; O2SAT 96
[2024-06-17 23:37] VITALS: BP 121/65; PULSE 62; RESP 18; TEMP 36; O2SAT 98
[2024-06-18 07:36] VITALS: BP 119/68; PULSE 63; RESP 18; TEMP 36.1; O2SAT 99
[2024-06-18 15:08] VITALS: BP 131/76; PULSE 58; RESP 12; TEMP 36; O2SAT 97
[2024-06-18] MEDS: Enoxaparin Sodium 40 MG/0.4 ML SYRINGE SUBCUT (15:17)
--- NOTE | 2024-06-18 15:28 | P.PNIM_ITS ---
Subjective Subjective Date of Service: 06/18/24 Interval History: Seen and examined this morning follow up for placement no overnight events patient awake, alert, eating breakfast Physical Exam 2 Vital Signs: Vital Signs: Last Vital Signs Temp 96.8 F 06/18/24 15:08 Pulse 58 06/18/24 15:08 Resp 12 06/18/24 15:08 BP 131/76 06/18/24 15:08 Pulse Ox 97 06/18/24 15:08 O2 Del Method Room Air 06/18/24 15:08 O2 Flow Rate 2 03/28/24 07:24 BMI result Body Mass Index 19.0 Const: General: comfortable, no acute distress, alert and awake Nutritional Appearance: thin Orientation/consciousness: oriented to person Resp: Effort & Inspection: normal respiratory effort, no respiratory distress and no use of accessory muscles GI: Inspection: No distended Palpation (GI): nontender Neuro: Other: grossly nonfocal General: oriented to person Extrem: General: Yes no pedal edema Objective Data Active Medications Acetaminophen (Acetaminophen 325 Mg Tablet) 650 mg PO Q6H PRN PRN Reason: Pain, Mild (Pain Scale 1-3), fever or headache Last Admin: 05/02/24 13:31 Dose: 650 mg Al Hydroxide/Mg Hydroxide (Magnesium Hydrox/Alum Hydrox 30 Ml Oral.Susp) 30 ml PO Q6H PRN PRN Reason: Constipation Benzonatate (Benzonatate 100 Mg Capsule) 100 mg PO TID PRN PRN Reason: Cough Calcium Carbonate (Calcium Carbonate 750 Mg Tab.Chew) 750 mg PO Q4H PRN PRN Reason: Heartburn Clonidine (Clonidine 0.1 Mg Patch.Tdwk) 0.1 mg TRANSDERMA Tu@0900 [facility]; Protocol Last Admin: 06/16/24 07:56 Dose: 0.1 mg Documented By: FIONA Enoxaparin Sodium (Enoxaparin Sodium 40 Mg/0.4 Ml Syringe) 40 mg SUBCUT Q24H [facility] Last Admin: 06/18/24 15:17 Dose: 40 mg Documented By: THOM Loperamide HCl (Loperamide Hcl 2 Mg Capsule) 2 mg PO Q4H PRN PRN Reason: Diarrhea Last Admin: 04/27/24 15:22 Dose: 2 mg Documented By: JESSICA Magnesium Hydroxide (Milk Of Magnesia 30 Ml Oral.Susp) 30 ml PO DAILY PRN PRN Reason: Constipation Melatonin (Melatonin 3 Mg Tablet) 6 mg PO BEDTIME PRN PRN Reason: Insomnia Last Admin: 04/29/24 19:24 Dose: 6 mg Miconazole Nitrate (Miconazole Nitrate 2% Powder 85 Gm Bottle) 1 appl TOPICAL BID PRN; Protocol PRN Reason: yeast Nicotine Polacrilex (Nicotine Polacrilex 2 Mg Gum) 4 mg BUCCAL Q2H PRN PRN Reason: Nicotine Cravings Ondansetron HCl (Ondansetron Hcl 4 Mg/2 Ml Vial) 4 mg IVPUSH Q8H PRN PRN Reason: Nausea and Vomiting Last Admin: 03/02/24 18:44 Dose: 4 mg Documented By: SEN Ondansetron HCl (Ondansetron Odt 4 Mg Tab.Rapdis) 4 mg TRANSLINGU Q6H PRN PRN Reason: Nausea and Vomiting Last Admin: 04/08/24 19:57 Dose: 4 mg Documented By: GERARDO-ZADRNeville Trazodone HCl (Trazodone Hcl 25 Mg Halftab) 25 mg PO BEDTIME PRN PRN Reason: Insomnia Last Admin: 04/29/24 19:24 Dose: 25 mg Labs 06/12/24 05:40 06/12/24 05:40 Assessment and Plan (1) Dementia with behavioral disturbance: Status: Acute Plan 83M PMH htn, unspecified dementia, admitted to [facility] 02/13/24 for FTT, not taking meds or food. Transferred to medicine 02/14/24. 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 Re-consult if any further concerns. DVT prophylaxis with Lovenox Full Code reason for continued hospitalization: awaiting guardianship for LTC placement The patient HCP is his step-daughter Alcides can be reached on Patient sister name is Dr. Nate Genao and her phone number is to be contacted for any updates. Quality Stroke Does the patient have a stroke diagnosis?: No VTE Prior VTE?: No VTE Risk Level:: Medical - moderate - high VTE Device Contraindication: Treatment Not Indicated VTE Drug Contraindication: N/A - Med Ordered
[2024-06-19] VITALS: BP 142/68; PULSE 58; RESP 16; TEMP 36; O2SAT 96
[2024-06-19 08:00] VITALS: BP 137/88; PULSE 63; RESP 16; TEMP 36.9; O2SAT 99
--- NOTE | 2024-06-19 15:02 | P.PNIM_ITS ---
Subjective Subjective Date of Service: 06/19/24 Interval History: seen and examined this morning follow up for placement Physical Exam 2 Vital Signs: Vital Signs: Last Vital Signs Temp 98.4 F 06/19/24 08:00 Pulse 63 06/19/24 08:00 Resp 16 06/19/24 08:00 BP 137/88 06/19/24 08:00 Pulse Ox 99 06/19/24 08:00 O2 Del Method Room Air 06/19/24 08:00 O2 Flow Rate 2 03/28/24 07:24 BMI result Body Mass Index 19.0 Const: General: comfortable, no acute distress, alert and awake Nutritional Appearance: thin Orientation/consciousness: oriented to person Resp: Effort & Inspection: normal respiratory effort, no respiratory distress and no use of accessory muscles GI: Inspection: No distended Palpation (GI): nontender Neuro: Other: grossly nonfocal General: oriented to person Extrem: General: Yes no pedal edema Objective Data Active Medications Acetaminophen (Acetaminophen 325 Mg Tablet) 650 mg PO Q6H PRN PRN Reason: Pain, Mild (Pain Scale 1-3), fever or headache Last Admin: 05/02/24 13:31 Dose: 650 mg Al Hydroxide/Mg Hydroxide (Magnesium Hydrox/Alum Hydrox 30 Ml Oral.Susp) 30 ml PO Q6H PRN PRN Reason: Constipation Benzonatate (Benzonatate 100 Mg Capsule) 100 mg PO TID PRN PRN Reason: Cough Calcium Carbonate (Calcium Carbonate 750 Mg Tab.Chew) 750 mg PO Q4H PRN PRN Reason: Heartburn Clonidine (Clonidine 0.1 Mg Patch.Tdwk) 0.1 mg TRANSDERMA Tu@0900 [facility]; Protocol Last Admin: 06/16/24 07:56 Dose: 0.1 mg Documented By: FIONA Enoxaparin Sodium (Enoxaparin Sodium 40 Mg/0.4 Ml Syringe) 40 mg SUBCUT Q24H [facility] Last Admin: 06/18/24 15:17 Dose: 40 mg Documented By: THOM Loperamide HCl (Loperamide Hcl 2 Mg Capsule) 2 mg PO Q4H PRN PRN Reason: Diarrhea Last Admin: 04/27/24 15:22 Dose: 2 mg Documented By: JESSICA Magnesium Hydroxide (Milk Of Magnesia 30 Ml Oral.Susp) 30 ml PO DAILY PRN PRN Reason: Constipation Melatonin (Melatonin 3 Mg Tablet) 6 mg PO BEDTIME PRN PRN Reason: Insomnia Last Admin: 04/29/24 19:24 Dose: 6 mg Miconazole Nitrate (Miconazole Nitrate 2% Powder 85 Gm Bottle) 1 appl TOPICAL BID PRN; Protocol PRN Reason: yeast Nicotine Polacrilex (Nicotine Polacrilex 2 Mg Gum) 4 mg BUCCAL Q2H PRN PRN Reason: Nicotine Cravings Ondansetron HCl (Ondansetron Hcl 4 Mg/2 Ml Vial) 4 mg IVPUSH Q8H PRN PRN Reason: Nausea and Vomiting Last Admin: 03/02/24 18:44 Dose: 4 mg Documented By: SEN Ondansetron HCl (Ondansetron Odt 4 Mg Tab.Rapdis) 4 mg TRANSLINGU Q6H PRN PRN Reason: Nausea and Vomiting Last Admin: 04/08/24 19:57 Dose: 4 mg Documented By: GERARDO-ZADRNeville Trazodone HCl (Trazodone Hcl 25 Mg Halftab) 25 mg PO BEDTIME PRN PRN Reason: Insomnia Last Admin: 04/29/24 19:24 Dose: 25 mg Labs 06/12/24 05:40 06/12/24 05:40 Assessment and Plan (1) Cognitive and behavioral changes: Status: Acute Plan 83M PMH htn, unspecified dementia, admitted to [facility] 02/13/24 for FTT, not taking meds or food. Transferred to medicine 02/14/24. 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 Re-consult if any further concerns. DVT prophylaxis with Lovenox Full Code reason for continued hospitalization: awaiting guardianship for LTC placement The patient HCP is his step-daughter Alcides can be reached on Patient sister name is Dr. Nate Genao and her phone number is to be contacted for any updates. Quality Stroke Does the patient have a stroke diagnosis?: No VTE Prior VTE?: No VTE Risk Level:: Medical - moderate - high VTE Device Contraindication: Treatment Not Indicated VTE Drug Contraindication: N/A - Med Ordered
[2024-06-19] MEDS: Enoxaparin Sodium 40 MG/0.4 ML SYRINGE SUBCUT (15:27)
[2024-06-19 15:41] VITALS: BP 150/74; PULSE 75; RESP 16; TEMP 36.4; O2SAT 97
[2024-06-19 20:09] VITALS: BP 119/63; PULSE 64; RESP 18; TEMP 36.3; O2SAT 94
[2024-06-20] VITALS: BP 143/65; PULSE 63; RESP 18; TEMP 36.1; O2SAT 92
--- NOTE | 2024-06-20 07:55 | P.PNIM_ITS ---
Subjective Subjective Date of Service: 06/20/24 Interval History: seen and examined this morning follow up for placement Physical Exam 2 Vital Signs: Vital Signs: Last Vital Signs Temp 97.0 F 06/20/24 00:00 Pulse 63 06/20/24 00:00 Resp 18 06/20/24 00:00 BP 143/65 H 06/20/24 00:00 Pulse Ox 92 06/20/24 00:00 O2 Del Method Room Air 06/20/24 00:00 O2 Flow Rate 2 03/28/24 07:24 BMI result Body Mass Index 19.0 Appearing in no acute distress lung sounds are clear to auscultation heart regular rate rhythm, clear S1, S2 positive bowel sounds, abdomen is soft, nontender neuro patient is alert x3, no focal deficits Objective Data Active Medications Acetaminophen (Acetaminophen 325 Mg Tablet) 650 mg PO Q6H PRN PRN Reason: Pain, Mild (Pain Scale 1-3), fever or headache Last Admin: 05/02/24 13:31 Dose: 650 mg Al Hydroxide/Mg Hydroxide (Magnesium Hydrox/Alum Hydrox 30 Ml Oral.Susp) 30 ml PO Q6H PRN PRN Reason: Constipation Benzonatate (Benzonatate 100 Mg Capsule) 100 mg PO TID PRN PRN Reason: Cough Calcium Carbonate (Calcium Carbonate 750 Mg Tab.Chew) 750 mg PO Q4H PRN PRN Reason: Heartburn Clonidine (Clonidine 0.1 Mg Patch.Tdwk) 0.1 mg TRANSDERMA Tu@0900 [facility]; Protocol Last Admin: 06/16/24 07:56 Dose: 0.1 mg Documented By: FIONA Enoxaparin Sodium (Enoxaparin Sodium 40 Mg/0.4 Ml Syringe) 40 mg SUBCUT Q24H [facility] Last Admin: 06/19/24 15:27 Dose: 40 mg Documented By: CELINE Loperamide HCl (Loperamide Hcl 2 Mg Capsule) 2 mg PO Q4H PRN PRN Reason: Diarrhea Last Admin: 04/27/24 15:22 Dose: 2 mg Documented By: JESSICA Magnesium Hydroxide (Milk Of Magnesia 30 Ml Oral.Susp) 30 ml PO DAILY PRN PRN Reason: Constipation Melatonin (Melatonin 3 Mg Tablet) 6 mg PO BEDTIME PRN PRN Reason: Insomnia Last Admin: 04/29/24 19:24 Dose: 6 mg Miconazole Nitrate (Miconazole Nitrate 2% Powder 85 Gm Bottle) 1 appl TOPICAL BID PRN; Protocol PRN Reason: yeast Nicotine Polacrilex (Nicotine Polacrilex 2 Mg Gum) 4 mg BUCCAL Q2H PRN PRN Reason: Nicotine Cravings Ondansetron HCl (Ondansetron Hcl 4 Mg/2 Ml Vial) 4 mg IVPUSH Q8H PRN PRN Reason: Nausea and Vomiting Last Admin: 03/02/24 18:44 Dose: 4 mg Documented By: SEN Ondansetron HCl (Ondansetron Odt 4 Mg Tab.Rapdis) 4 mg TRANSLINGU Q6H PRN PRN Reason: Nausea and Vomiting Last Admin: 04/08/24 19:57 Dose: 4 mg Documented By: CARLYDRNeville Trazodone HCl (Trazodone Hcl 25 Mg Halftab) 25 mg PO BEDTIME PRN PRN Reason: Insomnia Last Admin: 04/29/24 19:24 Dose: 25 mg Labs 06/12/24 05:40 06/12/24 05:40 Assessment and Plan (1) Cognitive and behavioral changes: Status: Acute Plan 83M PMH htn, unspecified dementia, admitted to [facility] 02/13/24 for FTT, not taking meds or food. Transferred to medicine 02/14/24. 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 Re-consult if any further concerns. DVT prophylaxis with Lovenox Full Code reason for continued hospitalization: awaiting guardianship for LTC placement The patient HCP is his step-daughter Alcides can be reached on Patient sister name is Dr. Nate Genao and her phone number is to be contacted for any updates. Quality Stroke Does the patient have a stroke diagnosis?: No VTE Prior VTE?: No VTE Risk Level:: Medical - moderate - high VTE Device Contraindication: Treatment Not Indicated VTE Drug Contraindication: N/A - Med Ordered
[2024-06-20 08:00] VITALS: BP 142/67; PULSE 57; RESP 16; TEMP 36.2; O2SAT 98
[2024-06-20 08:54] LABS: Hematocrit 43.3 % (42.0-52.0); Hemoglobin 15.2 g/dl (14.0-18.0); Mean Corpuscular HGB Conc 35.1 g/dl (31.0-36.0); Mean Corpuscular Hemoglobin 32.3 pg (27.0-33.0); Mean Corpuscular Volume 92.1 fL (80.0-98.0); Mean Platelet Volume 10.8 fL (9.4-12.4); Platelet Count 213 X10*3/uL (160-400); Red Cell Distribution Width 13.8 % (11.0-16.0); White Blood Count 6.8 X10*3/uL (4.8-10.8)
[2024-06-20 09:28] LABS: Anion Gap 12 (12-20); Blood Urea Nitrogen 16 mg/dL (9-16); Carbon Dioxide 22 mmol/L (22-29); Chloride 110 mmol/L (96-108); Creatinine Clr Calc Pharmacy 78.7; Estimated Glomerular Filt Rate > 60; Glucose Random 80 mg/dL (60-115); Potassium 4.1 mmol/L (3.3-5.1); Sodium 140 mmol/L (135-145)
[2024-06-20 15:10] VITALS: BP 136/79; PULSE 65; RESP 16; TEMP 36.3; O2SAT 96
[2024-06-20] MEDS: Enoxaparin Sodium 40 MG/0.4 ML SYRINGE SUBCUT (16:06)
[2024-06-20 23:39] VITALS: RESP 16
[2024-06-21 06:41] VITALS: BP 169/83; PULSE 62; RESP 16; TEMP 36.5; O2SAT 98
[2024-06-21 07:57] VITALS: BP 161/74; PULSE 57; RESP 16; TEMP 36.2; O2SAT 99
--- NOTE | 2024-06-21 10:10 | HO.PM.IMPN ---
Subjective Subjective Date of Service: 06/21/24 Interval History: seen and examined this morning follow up for placement Physical Exam Vital Signs: Vital Signs: Last Vital Signs Temp 97.1 F 06/21/24 07:57 Pulse 57 06/21/24 07:57 Resp 16 06/21/24 07:57 BP 161/74 H 06/21/24 07:57 Pulse Ox 99 06/21/24 07:57 O2 Del Method Room Air 06/21/24 07:57 O2 Flow Rate 2 03/28/24 07:24 BMI result Body Mass Index 19.0 Appearing in no acute distress lung normal expansion heart regular rate rhythm nontender abd neuro patient is alert Objective Data Active Medications Acetaminophen (Acetaminophen 325 Mg Tablet) 650 mg PO Q6H PRN PRN Reason: Pain, Mild (Pain Scale 1-3), fever or headache Last Admin: 05/02/24 13:31 Dose: 650 mg Al Hydroxide/Mg Hydroxide (Magnesium Hydrox/Alum Hydrox 30 Ml Oral.Susp) 30 ml PO Q6H PRN PRN Reason: Constipation Benzonatate (Benzonatate 100 Mg Capsule) 100 mg PO TID PRN PRN Reason: Cough Calcium Carbonate (Calcium Carbonate 750 Mg Tab.Chew) 750 mg PO Q4H PRN PRN Reason: Heartburn Clonidine (Clonidine 0.1 Mg Patch.Tdwk) 0.1 mg TRANSDERMA Tu@0900 [facility]; Protocol Last Admin: 06/16/24 07:56 Dose: 0.1 mg Documented By: FIONA Enoxaparin Sodium (Enoxaparin Sodium 40 Mg/0.4 Ml Syringe) 40 mg SUBCUT Q24H [facility] Last Admin: 06/20/24 16:06 Dose: 40 mg Documented By: TYRELL Loperamide HCl (Loperamide Hcl 2 Mg Capsule) 2 mg PO Q4H PRN PRN Reason: Diarrhea Last Admin: 04/27/24 15:22 Dose: 2 mg Documented By: JESSICA Magnesium Hydroxide (Milk Of Magnesia 30 Ml Oral.Susp) 30 ml PO DAILY PRN PRN Reason: Constipation Melatonin (Melatonin 3 Mg Tablet) 6 mg PO BEDTIME PRN PRN Reason: Insomnia Last Admin: 04/29/24 19:24 Dose: 6 mg Miconazole Nitrate (Miconazole Nitrate 2% Powder 85 Gm Bottle) 1 appl TOPICAL BID PRN; Protocol PRN Reason: yeast Nicotine Polacrilex (Nicotine Polacrilex 2 Mg Gum) 4 mg BUCCAL Q2H PRN PRN Reason: Nicotine Cravings Ondansetron HCl (Ondansetron Hcl 4 Mg/2 Ml Vial) 4 mg IVPUSH Q8H PRN PRN Reason: Nausea and Vomiting Last Admin: 03/02/24 18:44 Dose: 4 mg Documented By: SEN Ondansetron HCl (Ondansetron Odt 4 Mg Tab.Rapdis) 4 mg TRANSLINGU Q6H PRN PRN Reason: Nausea and Vomiting Last Admin: 04/08/24 19:57 Dose: 4 mg Documented By: GERARDO-ZADRT Trazodone HCl (Trazodone Hcl 25 Mg Halftab) 25 mg PO BEDTIME PRN PRN Reason: Insomnia Last Admin: 04/29/24 19:24 Dose: 25 mg Labs 06/20/24 08:27 06/20/24 08:27 Assessment and Plan (1) Cognitive and behavioral changes: Status: Acute Plan 83M PMH htn, unspecified dementia, admitted to [facility] 02/13/24 for FTT, not taking meds or food. Transferred to medicine 02/14/24. 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 Re-consult if any further concerns. DVT prophylaxis with Lovenox Full Code reason for continued hospitalization: awaiting guardianship for LTC placement The patient HCP is his step-daughter Alcides can be reached on Patient sister name is Dr. Nate Genao and her phone number is to be contacted for any updates. Quality Stroke Does the patient have a stroke diagnosis?: No VTE Prior VTE?: No VTE Risk Level:: Medical - moderate - high VTE Device Contraindication: Treatment Not Indicated VTE Drug Contraindication: N/A - Med Ordered
[2024-06-21 15:48] VITALS: BP 142/77; PULSE 78; RESP 16; TEMP 37.1; O2SAT 97
[2024-06-21] MEDS: Enoxaparin Sodium 40 MG/0.4 ML SYRINGE SUBCUT (16:17)
[2024-06-21 23:33] VITALS: BP 141/76; PULSE 58; RESP 18; TEMP 36.3; O2SAT 96
[2024-06-22 07:48] VITALS: BP 139/70; PULSE 65; RESP 18; TEMP 36; O2SAT 99
--- NOTE | 2024-06-22 08:31 | HO.PM.IMPN ---
Subjective Subjective Date of Service: 06/22/24 Interval History: seen and examined this morning follow up for placement Physical Exam Vital Signs: Vital Signs: Last Vital Signs Temp 96.8 F 06/22/24 07:48 Pulse 65 06/22/24 07:48 Resp 18 06/22/24 07:48 BP 139/70 06/22/24 07:48 Pulse Ox 99 06/22/24 07:48 O2 Del Method Room Air 06/22/24 07:48 O2 Flow Rate 2 03/28/24 07:24 BMI result Body Mass Index 19.0 Objective Data Active Medications Acetaminophen (Acetaminophen 325 Mg Tablet) 650 mg PO Q6H PRN PRN Reason: Pain, Mild (Pain Scale 1-3), fever or headache Last Admin: 05/02/24 13:31 Dose: 650 mg Al Hydroxide/Mg Hydroxide (Magnesium Hydrox/Alum Hydrox 30 Ml Oral.Susp) 30 ml PO Q6H PRN PRN Reason: Constipation Benzonatate (Benzonatate 100 Mg Capsule) 100 mg PO TID PRN PRN Reason: Cough Calcium Carbonate (Calcium Carbonate 750 Mg Tab.Chew) 750 mg PO Q4H PRN PRN Reason: Heartburn Clonidine (Clonidine 0.1 Mg Patch.Tdwk) 0.1 mg TRANSDERMA Tu@0900 [facility]; Protocol Last Admin: 06/16/24 07:56 Dose: 0.1 mg Documented By: FIONA Enoxaparin Sodium (Enoxaparin Sodium 40 Mg/0.4 Ml Syringe) 40 mg SUBCUT Q24H [facility] Last Admin: 06/21/24 16:17 Dose: 40 mg Documented By: TYRELL Loperamide HCl (Loperamide Hcl 2 Mg Capsule) 2 mg PO Q4H PRN PRN Reason: Diarrhea Last Admin: 04/27/24 15:22 Dose: 2 mg Documented By: JESSICA Magnesium Hydroxide (Milk Of Magnesia 30 Ml Oral.Susp) 30 ml PO DAILY PRN PRN Reason: Constipation Melatonin (Melatonin 3 Mg Tablet) 6 mg PO BEDTIME PRN PRN Reason: Insomnia Last Admin: 04/29/24 19:24 Dose: 6 mg Miconazole Nitrate (Miconazole Nitrate 2% Powder 85 Gm Bottle) 1 appl TOPICAL BID PRN; Protocol PRN Reason: yeast Nicotine Polacrilex (Nicotine Polacrilex 2 Mg Gum) 4 mg BUCCAL Q2H PRN PRN Reason: Nicotine Cravings Ondansetron HCl (Ondansetron Hcl 4 Mg/2 Ml Vial) 4 mg IVPUSH Q8H PRN PRN Reason: Nausea and Vomiting Last Admin: 03/02/24 18:44 Dose: 4 mg Documented By: SEN Ondansetron HCl (Ondansetron Odt 4 Mg Tab.Rapdis) 4 mg TRANSLINGU Q6H PRN PRN Reason: Nausea and Vomiting Last Admin: 04/08/24 19:57 Dose: 4 mg Documented By: CAPRICEZADRNeville Trazodone HCl (Trazodone Hcl 25 Mg Halftab) 25 mg PO BEDTIME PRN PRN Reason: Insomnia Last Admin: 04/29/24 19:24 Dose: 25 mg Labs 06/20/24 08:27 06/20/24 08:27 Assessment and Plan (1) Cognitive and behavioral changes: Status: Acute Plan 83M PMH htn, unspecified dementia, admitted to [facility] 02/13/24 for FTT, not taking meds or food. Transferred to medicine 02/14/24. 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 Re-consult if any further concerns. DVT prophylaxis with Lovenox Full Code reason for continued hospitalization: awaiting guardianship for LTC placement The patient HCP is his step-daughter Alcides can be reached on Patient sister name is Dr. Nate Genao and her phone number is to be contacted for any updates. Quality Stroke Does the patient have a stroke diagnosis?: No VTE Prior VTE?: No VTE Risk Level:: Medical - moderate - high VTE Device Contraindication: Treatment Not Indicated VTE Drug Contraindication: N/A - Med Ordered
--- NOTE | 2024-06-22 12:09 | MHC.CM.PN ---
PT REMAINS MEDICALLY CLEARED. PT IS AWAITING GUARDIANSHIP HEARING 07/08. PER CONSERVATOR (BEN GIBBS), PT WILL HAVE A LEAST 2 MONTHS WORTH OF PP FUNDING WHILE [facility] IS PENDING. REFERRALS UPDATED VIA [facility].
--- NOTE | 2024-06-22 13:59 | MHC.CLN ---
F/U DIET=REGULAR, CHOPPED. CONTINUE SUPPLEMENTS: MAGIC CUP TID (870 KCALS, 27 G PROTEIN) AND ENSURE TID (1050 KCALS, 60 G PROTEIN). CONTINUES WITH VARIABLE INTAKE, 50-100%. ACCEPT MAGIC CUP AND ENSURE. SKIN WITH REDNESS TO HEELS. NO OPEN AREAS. CONTINUE CURRENT DIET AND SUPPLEMENTS AND ENCOURAGE PO INTAKE ABLE. RD TO FOLLOW UP WEEKLY.
[2024-06-22 15:23] VITALS: BP 135/68; PULSE 68; RESP 17; TEMP 36.3; O2SAT 94
[2024-06-22] MEDS: Enoxaparin Sodium 40 MG/0.4 ML SYRINGE SUBCUT (16:40)
[2024-06-22 23:34] VITALS: BP 142/71; RESP 18; TEMP 36.5; O2SAT 99
--- NOTE | 2024-06-23 07:38 | HO.PM.IMPN ---
Subjective Subjective Date of Service: 06/23/24 Interval History: seen and examined this morning follow up for placement Physical Exam Vital Signs: Vital Signs: Last Vital Signs Temp 97.7 F 06/22/24 23:34 Pulse 68 06/22/24 15:23 Resp 18 06/22/24 23:34 BP 142/71 H 06/22/24 23:34 Pulse Ox 99 06/22/24 23:34 O2 Del Method Room Air 06/22/24 23:34 O2 Flow Rate 2 03/28/24 07:24 BMI result Body Mass Index 19.0 Appearing in no acute distress lungs normal expansion neuro patient is alert, confused Objective Data Active Medications Acetaminophen (Acetaminophen 325 Mg Tablet) 650 mg PO Q6H PRN PRN Reason: Pain, Mild (Pain Scale 1-3), fever or headache Last Admin: 05/02/24 13:31 Dose: 650 mg Al Hydroxide/Mg Hydroxide (Magnesium Hydrox/Alum Hydrox 30 Ml Oral.Susp) 30 ml PO Q6H PRN PRN Reason: Constipation Benzonatate (Benzonatate 100 Mg Capsule) 100 mg PO TID PRN PRN Reason: Cough Calcium Carbonate (Calcium Carbonate 750 Mg Tab.Chew) 750 mg PO Q4H PRN PRN Reason: Heartburn Clonidine (Clonidine 0.1 Mg Patch.Tdwk) 0.1 mg TRANSDERMA Tu@0900 [facility]; Protocol Last Admin: 06/16/24 07:56 Dose: 0.1 mg Documented By: FIONA Enoxaparin Sodium (Enoxaparin Sodium 40 Mg/0.4 Ml Syringe) 40 mg SUBCUT Q24H COUNT INCLUDES THE [facility] Last Admin: 06/22/24 16:40 Dose: 40 mg Documented By: GISSELLE Loperamide HCl (Loperamide Hcl 2 Mg Capsule) 2 mg PO Q4H PRN PRN Reason: Diarrhea Last Admin: 04/27/24 15:22 Dose: 2 mg Documented By: JESSICA Magnesium Hydroxide (Milk Of Magnesia 30 Ml Oral.Susp) 30 ml PO DAILY PRN PRN Reason: Constipation Melatonin (Melatonin 3 Mg Tablet) 6 mg PO BEDTIME PRN PRN Reason: Insomnia Last Admin: 04/29/24 19:24 Dose: 6 mg Miconazole Nitrate (Miconazole Nitrate 2% Powder 85 Gm Bottle) 1 appl TOPICAL BID PRN; Protocol PRN Reason: yeast Nicotine Polacrilex (Nicotine Polacrilex 2 Mg Gum) 4 mg BUCCAL Q2H PRN PRN Reason: Nicotine Cravings Ondansetron HCl (Ondansetron Hcl 4 Mg/2 Ml Vial) 4 mg IVPUSH Q8H PRN PRN Reason: Nausea and Vomiting Last Admin: 03/02/24 18:44 Dose: 4 mg Documented By: SEN Ondansetron HCl (Ondansetron Odt 4 Mg Tab.Rapdis) 4 mg TRANSLINGU Q6H PRN PRN Reason: Nausea and Vomiting Last Admin: 04/08/24 19:57 Dose: 4 mg Documented By: GERARDO-ZADRT Trazodone HCl (Trazodone Hcl 25 Mg Halftab) 25 mg PO BEDTIME PRN PRN Reason: Insomnia Last Admin: 04/29/24 19:24 Dose: 25 mg Labs 06/20/24 08:27 06/20/24 08:27 Assessment and Plan (1) Cognitive and behavioral changes: Status: Acute Plan 83M PMH htn, unspecified dementia, admitted to [facility] 02/13/24 for FTT, not taking meds or food. Transferred to medicine 02/14/24. 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 Re-consult if any further concerns. DVT prophylaxis with Lovenox Full Code reason for continued hospitalization: awaiting guardianship for LTC placement The patient HCP is his step-daughter Alcides can be reached on Patient sister name is Dr. Nate Genao and her phone number is to be contacted for any updates. Quality Stroke Does the patient have a stroke diagnosis?: No VTE Prior VTE?: No VTE Risk Level:: Medical - moderate - high VTE Device Contraindication: Treatment Not Indicated VTE Drug Contraindication: N/A - Med Ordered
[2024-06-23 07:55] VITALS: BP 140/67; PULSE 55; RESP 18; TEMP 36.1; O2SAT 97
[2024-06-23] MEDS: cloNIDine 0.1 MG PATCH.TDWK TRANSDERMA (08:19)
[2024-06-23 14:55] VITALS: BP 136/72; PULSE 66; RESP 18; TEMP 36.6; O2SAT 96
--- NOTE | 2024-06-23 15:41 | PC.NURSE ---
No behavioral concerns able to redirect , set up for meals able to feed himself. No complaints
[2024-06-23] MEDS: Enoxaparin Sodium 40 MG/0.4 ML SYRINGE SUBCUT (15:56)
--- NOTE | 2024-06-23 16:56 | HO.WOUND ---
Wound Consult: Initial - New consult placed 84yr old?male admitted to [facility] on 02/14/24 - See progress notes and H&P for detailed history.? Wound consult placed for Left forearm skin tear.? Arrival to bedside patient was agreeable to my assessment. Left arm skin tear noted dressing change completed with xeroform and gauze wrap in place. Recommend continuing with current dressing. Do not let adhesive onto patient skin. Also Finger nails noted for length and debris under the nail suspect this is contributing to increase skin tears. Recommend trimming nails per policy. Left forearm Skin Tear - Cleanse with normal saline, pat dry. ?Apply Xeroform secure with Abd pads, gauze wrap and tape. Change Daily. ?Do not apply tape to patient?s skin.? Avoid Adhesive application to skin - when necessary, apply skin prep prior.? Re-consult wound care Nurse for wound deterioration or wound changes.
[2024-06-23 22:55] VITALS: BP 143/75; PULSE 61; RESP 18; TEMP 36.4; O2SAT 97
[2024-06-24 07:35] VITALS: BP 136/63; PULSE 61; RESP 14; TEMP 36.2; O2SAT 96
--- NOTE | 2024-06-24 11:15 | PC.NURSE ---
Pt up to chair with grayson lift , pt cooperative
--- NOTE | 2024-06-24 13:23 | P.PNIM_ITS ---
Subjective Subjective Date of Service: 06/24/24 Interval History: Seen and examined this morning Follow-up for placement. Patient unable to answer questions appropriately secondary to dementia. He is sitting up in a chair watching television Review of Systems Review of Systems: Yes all other systems are reviewed and are negative Physical Exam 2 Vital Signs: Vital Signs: Last Vital Signs Temp 97.2 F 06/24/24 07:35 Pulse 61 06/24/24 07:35 Resp 14 06/24/24 07:35 BP 136/63 06/24/24 07:35 Pulse Ox 96 06/24/24 07:35 O2 Del Method Room Air 06/24/24 07:35 O2 Flow Rate 2 03/28/24 07:24 BMI result Body Mass Index 19.0 Constitutional - Awake and Alert, No apparent distress Eyes - PERRLA, EOMI Cardiovascular - S1S2, RRR, No edema Respiratory - Normal lung expansion, Normal respiratory effort, No respiratory distress, CTA bilaterally Extremities - no calf tenderness bilaterally, no swelling Skin - Warm/Dry Neurological - alert, mostly nonverbal, not answering questions appropriately Psychological - Appropriate affect Objective Data Active Medications Acetaminophen (Acetaminophen 325 Mg Tablet) 650 mg PO Q6H PRN PRN Reason: Pain, Mild (Pain Scale 1-3), fever or headache Last Admin: 05/02/24 13:31 Dose: 650 mg Al Hydroxide/Mg Hydroxide (Magnesium Hydrox/Alum Hydrox 30 Ml Oral.Susp) 30 ml PO Q6H PRN PRN Reason: Constipation Benzonatate (Benzonatate 100 Mg Capsule) 100 mg PO TID PRN PRN Reason: Cough Calcium Carbonate (Calcium Carbonate 750 Mg Tab.Chew) 750 mg PO Q4H PRN PRN Reason: Heartburn Clonidine (Clonidine 0.1 Mg Patch.Tdwk) 0.1 mg TRANSDERMA Tu@0900 [facility]; Protocol Last Admin: 06/23/24 08:19 Dose: 0.1 mg Documented By: CELINE Enoxaparin Sodium (Enoxaparin Sodium 40 Mg/0.4 Ml Syringe) 40 mg SUBCUT Q24H [facility] Last Admin: 06/23/24 15:56 Dose: 40 mg Documented By: CELINE Loperamide HCl (Loperamide Hcl 2 Mg Capsule) 2 mg PO Q4H PRN PRN Reason: Diarrhea Last Admin: 04/27/24 15:22 Dose: 2 mg Documented By: JESSICA Magnesium Hydroxide (Milk Of Magnesia 30 Ml Oral.Susp) 30 ml PO DAILY PRN PRN Reason: Constipation Melatonin (Melatonin 3 Mg Tablet) 6 mg PO BEDTIME PRN PRN Reason: Insomnia Last Admin: 04/29/24 19:24 Dose: 6 mg Miconazole Nitrate (Miconazole Nitrate 2% Powder 85 Gm Bottle) 1 appl TOPICAL BID PRN; Protocol PRN Reason: yeast Nicotine Polacrilex (Nicotine Polacrilex 2 Mg Gum) 4 mg BUCCAL Q2H PRN PRN Reason: Nicotine Cravings Ondansetron HCl (Ondansetron Hcl 4 Mg/2 Ml Vial) 4 mg IVPUSH Q8H PRN PRN Reason: Nausea and Vomiting Last Admin: 03/02/24 18:44 Dose: 4 mg Documented By: SEN Ondansetron HCl (Ondansetron Odt 4 Mg Tab.Rapdis) 4 mg TRANSLINGU Q6H PRN PRN Reason: Nausea and Vomiting Last Admin: 04/08/24 19:57 Dose: 4 mg Documented By: GERARDO-DILMA Trazodone HCl (Trazodone Hcl 25 Mg Halftab) 25 mg PO BEDTIME PRN PRN Reason: Insomnia Last Admin: 04/29/24 19:24 Dose: 25 mg Labs 06/20/24 08:27 06/20/24 08:27 Assessment and Plan (1) Cognitive and behavioral changes: Status: Acute Plan 83M PMH htn, unspecified dementia, admitted to [facility] 02/13/24 for FTT, not taking meds or food. Transferred to medicine 02/14/24. 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 Re-consult if any further concerns. DVT prophylaxis with Lovenox Full Code reason for continued hospitalization: awaiting guardianship for LTC placement The patient HCP is his step-daughter Alcides can be reached on Patient sister name is Dr. Nate Genao and her phone number is to be contacted for any updates. Quality Stroke Does the patient have a stroke diagnosis?: No VTE Prior VTE?: No VTE Risk Level:: Medical - moderate - high VTE Device Contraindication: Treatment Not Indicated VTE Drug Contraindication: N/A - Med Ordered
--- NOTE | 2024-06-24 14:22 | MHC.CM.PN ---
CM RECEIVED NOTE FROM [facility] THAT MORE INFORMATION IS NEEDED FROM [facility] IN REGARDS TO [facility]/FINANCES. BUSINESS OFFICE FOR [facility] WILL BE REACHING OUT TO THEM AND WILL CONTACT CM IF ANYTHING ELSE IS NEEDED.
[2024-06-24 15:05] VITALS: BP 154/78; PULSE 65; RESP 16; TEMP 36.3; O2SAT 96
[2024-06-24] MEDS: Enoxaparin Sodium 40 MG/0.4 ML SYRINGE SUBCUT (15:39)
[2024-06-24 22:08] VITALS: BP 140/76; PULSE 61; RESP 18; TEMP 36.4; O2SAT 98
--- NOTE | 2024-06-24 23:21 | PC.NURSE ---
Pt resting in bed watching TV, calm and cooperative at this time.
[2024-06-25 07:27] VITALS: BP 128/58; PULSE 59; RESP 16; TEMP 36.2; O2SAT 96
--- NOTE | 2024-06-25 14:21 | P.PNIM_ITS ---
Subjective Subjective Date of Service: 06/25/24 Interval History: Seen and examined this morning Follow-up for placement Patient sitting up in chair eating breakfast Awake, alert Physical Exam 2 Vital Signs: Vital Signs: Last Vital Signs Temp 97.2 F 06/25/24 07:27 Pulse 59 06/25/24 07:27 Resp 16 06/25/24 07:27 BP 128/58 L 06/25/24 07:27 Pulse Ox 96 06/25/24 07:27 O2 Del Method Room Air 06/25/24 07:27 O2 Flow Rate 2 03/28/24 07:24 BMI result Body Mass Index 19.0 Const: General: comfortable, no acute distress, alert and awake Nutritional Appearance: thin Orientation/consciousness: oriented to person Resp: Effort & Inspection: normal respiratory effort, no respiratory distress and no use of accessory muscles GI: Inspection: No distended Palpation (GI): nontender Neuro: Other: grossly nonfocal General: oriented to person Extrem: General: Yes no pedal edema Objective Data Active Medications Acetaminophen (Acetaminophen 325 Mg Tablet) 650 mg PO Q6H PRN PRN Reason: Pain, Mild (Pain Scale 1-3), fever or headache Last Admin: 05/02/24 13:31 Dose: 650 mg Al Hydroxide/Mg Hydroxide (Magnesium Hydrox/Alum Hydrox 30 Ml Oral.Susp) 30 ml PO Q6H PRN PRN Reason: Constipation Benzonatate (Benzonatate 100 Mg Capsule) 100 mg PO TID PRN PRN Reason: Cough Calcium Carbonate (Calcium Carbonate 750 Mg Tab.Chew) 750 mg PO Q4H PRN PRN Reason: Heartburn Clonidine (Clonidine 0.1 Mg Patch.Tdwk) 0.1 mg TRANSDERMA Tu@0900 [facility]; Protocol Last Admin: 06/23/24 08:19 Dose: 0.1 mg Documented By: CELINE Enoxaparin Sodium (Enoxaparin Sodium 40 Mg/0.4 Ml Syringe) 40 mg SUBCUT Q24H [facility] Last Admin: 06/24/24 15:39 Dose: 40 mg Documented By: CELINE Loperamide HCl (Loperamide Hcl 2 Mg Capsule) 2 mg PO Q4H PRN PRN Reason: Diarrhea Last Admin: 04/27/24 15:22 Dose: 2 mg Documented By: JESSICA Magnesium Hydroxide (Milk Of Magnesia 30 Ml Oral.Susp) 30 ml PO DAILY PRN PRN Reason: Constipation Melatonin (Melatonin 3 Mg Tablet) 6 mg PO BEDTIME PRN PRN Reason: Insomnia Last Admin: 04/29/24 19:24 Dose: 6 mg Miconazole Nitrate (Miconazole Nitrate 2% Powder 85 Gm Bottle) 1 appl TOPICAL BID PRN; Protocol PRN Reason: yeast Nicotine Polacrilex (Nicotine Polacrilex 2 Mg Gum) 4 mg BUCCAL Q2H PRN PRN Reason: Nicotine Cravings Ondansetron HCl (Ondansetron Hcl 4 Mg/2 Ml Vial) 4 mg IVPUSH Q8H PRN PRN Reason: Nausea and Vomiting Last Admin: 03/02/24 18:44 Dose: 4 mg Documented By: SEN Ondansetron HCl (Ondansetron Odt 4 Mg Tab.Rapdis) 4 mg TRANSLINGU Q6H PRN PRN Reason: Nausea and Vomiting Last Admin: 04/08/24 19:57 Dose: 4 mg Documented By: JENSEN Trazodone HCl (Trazodone Hcl 25 Mg Halftab) 25 mg PO BEDTIME PRN PRN Reason: Insomnia Last Admin: 04/29/24 19:24 Dose: 25 mg Labs 06/20/24 08:27 06/20/24 08:27 Assessment and Plan (1) Cognitive and behavioral changes: Status: Acute Plan 83M PMH htn, unspecified dementia, admitted to [facility] 02/13/24 for FTT, not taking meds or food. Transferred to medicine 02/14/24. 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 Re-consult if any further concerns. DVT prophylaxis with Lovenox Full Code reason for continued hospitalization: awaiting guardianship for LTC placement The patient HCP is his step-daughter Alcides can be reached on Patient sister name is Dr. Nate Genao and her phone number is to be contacted for any updates. Quality Stroke Does the patient have a stroke diagnosis?: No VTE Prior VTE?: No VTE Risk Level:: Medical - moderate - high VTE Device Contraindication: Treatment Not Indicated VTE Drug Contraindication: N/A - Med Ordered
[2024-06-25 15:06] VITALS: BP 142/81; PULSE 65; RESP 17; TEMP 36.2; O2SAT 95
--- NOTE | 2024-06-25 16:26 | HO.WOUND ---
Wound Consult: Follow up 84yr old?male admitted to [facility] on 02/14/24 - See progress notes and H&P for detailed history.? Wound consult follow up for Left forearm skin tear.? Arrival to bedside patient was agreeable to my assessment. Agreeable to nail care. Nail care performed with clipping and trimming - no injuries occured and patient tolerated well. Left arm skin tear noted to have no dressing in palce and SUSAN - patient reported pain and tenderness - wound is dry and slightly scabbed should remains with xeroform cover dressing. Of note there was slight red pink erythema to the periwound. Direct care team should monitor for erythema resolution. Dressing completed with xeroform and gauze wrap in place. Recommend continuing with current dressing. Do not let adhesive onto patient skin. Left forearm Skin Tear - Cleanse with normal saline, pat dry. ?Apply Xeroform secure with Abd pads, gauze wrap and tape. Change Daily. ?Do not apply tape to patient?s skin.? Avoid Adhesive application to skin - when necessary, apply skin prep prior.? Re-consult wound care Nurse for wound deterioration or wound changes.
[2024-06-25] MEDS: Enoxaparin Sodium 40 MG/0.4 ML SYRINGE SUBCUT (20:00)
[2024-06-25 23:43] VITALS: BP 148/78; PULSE 62; RESP 16; TEMP 36.3; O2SAT 98
[2024-06-26 08:00] VITALS: BP 126/60; PULSE 52; RESP 18; TEMP 36; O2SAT 98
--- NOTE | 2024-06-26 12:54 | MHC.CM.PN ---
EMR REVIEWED. PT REMAINS MEDICALLY CLEARED . PT IS AWAITING LTC PLACEMENT AT [facility] (FOLLOWING) SNF SEEKING FURTHER FINANCIAL DOCUMENTS FROM CONSERVATOR BEFORE ABLE TO ADMIT. CM CONTINUES TO WORK CLOSELY WITH SNF TO EXPEDITE THE PROCESS. CM CONTINUES TO FOLLOW FOR THE PLAN.
--- NOTE | 2024-06-26 14:50 | HO.PM.IMPN ---
Subjective Subjective Date of Service: 06/26/24 Interval History: seen and examined this morning follow up for placement No overnight events Resting comfortably Physical Exam Vital Signs: Vital Signs: Last Vital Signs Temp 96.8 F 06/26/24 08:00 Pulse 52 06/26/24 08:00 Resp 18 06/26/24 08:00 BP 126/60 06/26/24 08:00 Pulse Ox 98 06/26/24 08:00 O2 Del Method Room Air 06/26/24 08:00 O2 Flow Rate 2 03/28/24 07:24 BMI result Body Mass Index 19.0 Const: General: comfortable, no acute distress, alert and awake Nutritional Appearance: thin Orientation/consciousness: oriented to person Resp: Effort & Inspection: normal respiratory effort, no respiratory distress and no use of accessory muscles GI: Inspection: No distended Palpation (GI): nontender Neuro: Other: grossly nonfocal General: oriented to person Extrem: General: Yes no pedal edema Objective Data Active Medications Acetaminophen (Acetaminophen 325 Mg Tablet) 650 mg PO Q6H PRN PRN Reason: Pain, Mild (Pain Scale 1-3), fever or headache Last Admin: 05/02/24 13:31 Dose: 650 mg Al Hydroxide/Mg Hydroxide (Magnesium Hydrox/Alum Hydrox 30 Ml Oral.Susp) 30 ml PO Q6H PRN PRN Reason: Constipation Benzonatate (Benzonatate 100 Mg Capsule) 100 mg PO TID PRN PRN Reason: Cough Calcium Carbonate (Calcium Carbonate 750 Mg Tab.Chew) 750 mg PO Q4H PRN PRN Reason: Heartburn Clonidine (Clonidine 0.1 Mg Patch.Tdwk) 0.1 mg TRANSDERMA Tu@0900 [facility]; Protocol Last Admin: 06/23/24 08:19 Dose: 0.1 mg Documented By: CELINE Enoxaparin Sodium (Enoxaparin Sodium 40 Mg/0.4 Ml Syringe) 40 mg SUBCUT Q24H [facility] Last Admin: 06/25/24 20:00 Dose: 40 mg Documented By: CRIS Loperamide HCl (Loperamide Hcl 2 Mg Capsule) 2 mg PO Q4H PRN PRN Reason: Diarrhea Last Admin: 04/27/24 15:22 Dose: 2 mg Documented By: JESSICA Magnesium Hydroxide (Milk Of Magnesia 30 Ml Oral.Susp) 30 ml PO DAILY PRN PRN Reason: Constipation Melatonin (Melatonin 3 Mg Tablet) 6 mg PO BEDTIME PRN PRN Reason: Insomnia Last Admin: 04/29/24 19:24 Dose: 6 mg Miconazole Nitrate (Miconazole Nitrate 2% Powder 85 Gm Bottle) 1 appl TOPICAL BID PRN; Protocol PRN Reason: yeast Nicotine Polacrilex (Nicotine Polacrilex 2 Mg Gum) 4 mg BUCCAL Q2H PRN PRN Reason: Nicotine Cravings Ondansetron HCl (Ondansetron Hcl 4 Mg/2 Ml Vial) 4 mg IVPUSH Q8H PRN PRN Reason: Nausea and Vomiting Last Admin: 03/02/24 18:44 Dose: 4 mg Documented By: SEN Ondansetron HCl (Ondansetron Odt 4 Mg Tab.Rapdis) 4 mg TRANSLINGU Q6H PRN PRN Reason: Nausea and Vomiting Last Admin: 04/08/24 19:57 Dose: 4 mg Documented By: GERARDO-ZADRNeville Trazodone HCl (Trazodone Hcl 25 Mg Halftab) 25 mg PO BEDTIME PRN PRN Reason: Insomnia Last Admin: 04/29/24 19:24 Dose: 25 mg Labs 06/20/24 08:27 06/20/24 08:27 Assessment and Plan (1) Cognitive and behavioral changes: Status: Acute Plan 83M PMH htn, unspecified dementia, admitted to [facility] 02/13/24 for FTT, not taking meds or food. Transferred to medicine 02/14/24. 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 Re-consult if any further concerns. DVT prophylaxis with Lovenox Full Code reason for continued hospitalization: awaiting guardianship for LTC placement The patient HCP is his step-daughter Alcides can be reached on Patient sister name is Dr. Nate Genao and her phone number is to be contacted for any updates. Quality Stroke Does the patient have a stroke diagnosis?: No VTE Prior VTE?: No VTE Risk Level:: Medical - moderate - high VTE Device Contraindication: Treatment Not Indicated VTE Drug Contraindication: N/A - Med Ordered
[2024-06-26 15:27] VITALS: BP 135/73; PULSE 71; RESP 16; TEMP 36.2; O2SAT 95
[2024-06-26 23:30] VITALS: RESP 19
--- NOTE | 2024-06-27 01:27 | PC.NURSE ---
Patient set off bed alarm approx midnight. patient rude and mocking staff, redirected and pt cooperated being put back to bed.
[2024-06-27 06:34] LABS: Anion Gap 12 (12-20); Blood Urea Nitrogen 14 mg/dL (9-16); Carbon Dioxide 26 mmol/L (22-29); Chloride 109 mmol/L (96-108); Creatinine Clr Calc Pharmacy 76.4; Estimated Glomerular Filt Rate > 60; Glucose Random 95 mg/dL (60-115); Sodium 142 mmol/L (135-145)
--- NOTE | 2024-06-27 08:28 | PC.NURSE ---
pt refusing vitals cursing at staff and trying to hit. will attempt at a later to get VS
[2024-06-27 10:46] VITALS: BP 155/78; PULSE 78; RESP 18; TEMP 36; O2SAT 96
--- NOTE | 2024-06-27 13:01 | PC.NURSE ---
LUE skin tear dressings changed with xeroform and dry wrap. minimal tape used ,none on skin
--- NOTE | 2024-06-27 13:18 | HO.PM.IMPN ---
Subjective Subjective Date of Service: 06/27/24 Interval History: seen and examined this morning follow up for placement no overnight events Physical Exam Vital Signs: Vital Signs: Last Vital Signs Temp 96.8 F 06/27/24 10:46 Pulse 78 06/27/24 10:46 Resp 18 06/27/24 10:46 BP 155/78 H 06/27/24 10:46 Pulse Ox 96 06/27/24 10:46 O2 Del Method Room Air 06/27/24 10:46 O2 Flow Rate 2 03/28/24 07:24 BMI result Body Mass Index 19.0 Const: General: comfortable, no acute distress, alert and awake Nutritional Appearance: thin Orientation/consciousness: oriented to person Resp: Effort & Inspection: normal respiratory effort, no respiratory distress and no use of accessory muscles GI: Inspection: No distended Palpation (GI): nontender Neuro: Other: grossly nonfocal General: oriented to person Extrem: General: Yes no pedal edema Objective Data Active Medications Acetaminophen (Acetaminophen 325 Mg Tablet) 650 mg PO Q6H PRN PRN Reason: Pain, Mild (Pain Scale 1-3), fever or headache Last Admin: 05/02/24 13:31 Dose: 650 mg Al Hydroxide/Mg Hydroxide (Magnesium Hydrox/Alum Hydrox 30 Ml Oral.Susp) 30 ml PO Q6H PRN PRN Reason: Constipation Benzonatate (Benzonatate 100 Mg Capsule) 100 mg PO TID PRN PRN Reason: Cough Calcium Carbonate (Calcium Carbonate 750 Mg Tab.Chew) 750 mg PO Q4H PRN PRN Reason: Heartburn Clonidine (Clonidine 0.1 Mg Patch.Tdwk) 0.1 mg TRANSDERMA Tu@0900 [facility]; Protocol Last Admin: 06/23/24 08:19 Dose: 0.1 mg Documented By: CELINE Enoxaparin Sodium (Enoxaparin Sodium 40 Mg/0.4 Ml Syringe) 40 mg SUBCUT Q24H [facility] Last Admin: 06/25/24 20:00 Dose: 40 mg Documented By: CRIS Loperamide HCl (Loperamide Hcl 2 Mg Capsule) 2 mg PO Q4H PRN PRN Reason: Diarrhea Last Admin: 04/27/24 15:22 Dose: 2 mg Documented By: JESSICA Magnesium Hydroxide (Milk Of Magnesia 30 Ml Oral.Susp) 30 ml PO DAILY PRN PRN Reason: Constipation Melatonin (Melatonin 3 Mg Tablet) 6 mg PO BEDTIME PRN PRN Reason: Insomnia Last Admin: 04/29/24 19:24 Dose: 6 mg Miconazole Nitrate (Miconazole Nitrate 2% Powder 85 Gm Bottle) 1 appl TOPICAL BID PRN; Protocol PRN Reason: yeast Nicotine Polacrilex (Nicotine Polacrilex 2 Mg Gum) 4 mg BUCCAL Q2H PRN PRN Reason: Nicotine Cravings Ondansetron HCl (Ondansetron Hcl 4 Mg/2 Ml Vial) 4 mg IVPUSH Q8H PRN PRN Reason: Nausea and Vomiting Last Admin: 03/02/24 18:44 Dose: 4 mg Documented By: SEN Ondansetron HCl (Ondansetron Odt 4 Mg Tab.Rapdis) 4 mg TRANSLINGU Q6H PRN PRN Reason: Nausea and Vomiting Last Admin: 04/08/24 19:57 Dose: 4 mg Documented By: GERARDO-ZADRNeville Trazodone HCl (Trazodone Hcl 25 Mg Halftab) 25 mg PO BEDTIME PRN PRN Reason: Insomnia Last Admin: 04/29/24 19:24 Dose: 25 mg Labs 06/20/24 08:27 06/27/24 06:00 Labs: Laboratory Results - last 24 hr 06/27/24 06:00 Hold Purple Top SEE NOTE Anion Gap 12 Estim Creat Clear Calc 76.4 Estimated GFR > 60 Random Glucose 95 Calcium 10.0 D Assessment and Plan (1) Cognitive and behavioral changes: Status: Acute Plan 83M PMH htn, unspecified dementia, admitted to [facility] 02/13/24 for FTT, not taking meds or food. Transferred to medicine 02/14/24. 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 Re-consult if any further concerns. DVT prophylaxis with Lovenox Full Code reason for continued hospitalization: awaiting LTC placement The patient HCP is his step-daughter Alcides can be reached on Patient sister name is Dr. Nate Genao and her phone number is to be contacted for any updates. Quality Stroke Does the patient have a stroke diagnosis?: No VTE Prior VTE?: No VTE Risk Level:: Medical - moderate - high VTE Device Contraindication: Treatment Not Indicated VTE Drug Contraindication: N/A - Med Ordered
[2024-06-27] MEDS: Enoxaparin Sodium 40 MG/0.4 ML SYRINGE SUBCUT (15:36)
[2024-06-27 15:38] VITALS: BP 176/98; PULSE 72; RESP 16; TEMP 36.5; O2SAT 97
[2024-06-27 23:24] VITALS: BP 131/64; PULSE 64; RESP 16; TEMP 36; O2SAT 94
[2024-06-28 07:30] VITALS: BP 147/71; PULSE 68; RESP 16; TEMP 36.1; O2SAT 99
--- NOTE | 2024-06-28 12:23 | P.PNIM_ITS ---
Subjective Subjective Date of Service: 06/28/24 Interval History: seen and examined this morning follow up for placement no overnight events appears comfortable Physical Exam 2 Vital Signs: Vital Signs: Last Vital Signs Temp 97.0 F 06/28/24 07:30 Pulse 68 06/28/24 07:30 Resp 16 06/28/24 07:30 BP 147/71 H 06/28/24 07:30 Pulse Ox 99 06/28/24 07:30 O2 Del Method Room Air 06/28/24 07:30 O2 Flow Rate 2 03/28/24 07:24 BMI result Body Mass Index 19.0 Const: General: comfortable, no acute distress, alert and awake Nutritional Appearance: thin Orientation/consciousness: oriented to person Resp: Effort & Inspection: normal respiratory effort, no respiratory distress and no use of accessory muscles GI: Inspection: No distended Palpation (GI): nontender Neuro: Other: grossly nonfocal General: oriented to person Extrem: General: Yes no pedal edema Objective Data Active Medications Acetaminophen (Acetaminophen 325 Mg Tablet) 650 mg PO Q6H PRN PRN Reason: Pain, Mild (Pain Scale 1-3), fever or headache Last Admin: 05/02/24 13:31 Dose: 650 mg Al Hydroxide/Mg Hydroxide (Magnesium Hydrox/Alum Hydrox 30 Ml Oral.Susp) 30 ml PO Q6H PRN PRN Reason: Constipation Benzonatate (Benzonatate 100 Mg Capsule) 100 mg PO TID PRN PRN Reason: Cough Calcium Carbonate (Calcium Carbonate 750 Mg Tab.Chew) 750 mg PO Q4H PRN PRN Reason: Heartburn Clonidine (Clonidine 0.1 Mg Patch.Tdwk) 0.1 mg TRANSDERMA Tu@0900 [facility]; Protocol Last Admin: 06/23/24 08:19 Dose: 0.1 mg Documented By: CELINE Enoxaparin Sodium (Enoxaparin Sodium 40 Mg/0.4 Ml Syringe) 40 mg SUBCUT Q24H [facility] Last Admin: 06/27/24 15:36 Dose: 40 mg Documented By: CELINE Loperamide HCl (Loperamide Hcl 2 Mg Capsule) 2 mg PO Q4H PRN PRN Reason: Diarrhea Last Admin: 04/27/24 15:22 Dose: 2 mg Documented By: JESSICA Magnesium Hydroxide (Milk Of Magnesia 30 Ml Oral.Susp) 30 ml PO DAILY PRN PRN Reason: Constipation Melatonin (Melatonin 3 Mg Tablet) 6 mg PO BEDTIME PRN PRN Reason: Insomnia Last Admin: 04/29/24 19:24 Dose: 6 mg Miconazole Nitrate (Miconazole Nitrate 2% Powder 85 Gm Bottle) 1 appl TOPICAL BID PRN; Protocol PRN Reason: yeast Nicotine Polacrilex (Nicotine Polacrilex 2 Mg Gum) 4 mg BUCCAL Q2H PRN PRN Reason: Nicotine Cravings Ondansetron HCl (Ondansetron Hcl 4 Mg/2 Ml Vial) 4 mg IVPUSH Q8H PRN PRN Reason: Nausea and Vomiting Last Admin: 03/02/24 18:44 Dose: 4 mg Documented By: SEN Ondansetron HCl (Ondansetron Odt 4 Mg Tab.Rapdis) 4 mg TRANSLINGU Q6H PRN PRN Reason: Nausea and Vomiting Last Admin: 04/08/24 19:57 Dose: 4 mg Documented By: GERARDO-ZADRT Trazodone HCl (Trazodone Hcl 25 Mg Halftab) 25 mg PO BEDTIME PRN PRN Reason: Insomnia Last Admin: 04/29/24 19:24 Dose: 25 mg Labs 06/20/24 08:27 06/27/24 06:00 Assessment and Plan (1) Cognitive and behavioral changes: Status: Acute Plan 83M PMH htn, unspecified dementia, admitted to [facility] 02/13/24 for FTT, not taking meds or food. Transferred to medicine 02/14/24. 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 Re-consult if any further concerns. DVT prophylaxis with Lovenox Full Code reason for continued hospitalization: awaiting LTC placement The patient HCP is his step-daughter Alcides can be reached on Patient sister name is Dr. Nate Genao and her phone number is to be contacted for any updates. Quality Stroke Does the patient have a stroke diagnosis?: No VTE Prior VTE?: No VTE Risk Level:: Medical - moderate - high VTE Device Contraindication: Treatment Not Indicated VTE Drug Contraindication: N/A - Med Ordered
[2024-06-28] MEDS: Enoxaparin Sodium 40 MG/0.4 ML SYRINGE SUBCUT (15:16)
[2024-06-28 15:52] VITALS: BP 148/76; PULSE 69; RESP 18; TEMP 36.3; O2SAT 95
[2024-06-28 23:53] VITALS: BP 126/75; PULSE 67; RESP 18; TEMP 36.3; O2SAT 93
--- NOTE | 2024-06-29 03:13 | PC.NURSE ---
Pt has been sleeping well through the night, with no apparent distress. Pt has been calm and cooperative.
[2024-06-29 06:52] VITALS: BMI 18.7
--- NOTE | 2024-06-29 07:20 | PC.NURSE ---
Foam Dressing changed on Heels today, Protection.
[2024-06-29 07:32] VITALS: BP 146/63; PULSE 61; RESP 16; TEMP 36.7; O2SAT 98
--- NOTE | 2024-06-29 08:44 | HO.PM.IMPN ---
Subjective Subjective Date of Service: 06/29/24 Interval History: seen and examined this morning follow up for placement no overnight events appears comfortable Physical Exam Vital Signs: Vital Signs: Last Vital Signs Temp 98.1 F 06/29/24 07:32 Pulse 61 06/29/24 07:32 Resp 16 06/29/24 07:32 BP 146/63 H 06/29/24 07:32 Pulse Ox 98 06/29/24 07:32 O2 Del Method Room Air 06/29/24 07:32 O2 Flow Rate 2 03/28/24 07:24 BMI result Body Mass Index 18.7 alert and confused Objective Data Active Medications Acetaminophen (Acetaminophen 325 Mg Tablet) 650 mg PO Q6H PRN PRN Reason: Pain, Mild (Pain Scale 1-3), fever or headache Last Admin: 05/02/24 13:31 Dose: 650 mg Al Hydroxide/Mg Hydroxide (Magnesium Hydrox/Alum Hydrox 30 Ml Oral.Susp) 30 ml PO Q6H PRN PRN Reason: Constipation Benzonatate (Benzonatate 100 Mg Capsule) 100 mg PO TID PRN PRN Reason: Cough Calcium Carbonate (Calcium Carbonate 750 Mg Tab.Chew) 750 mg PO Q4H PRN PRN Reason: Heartburn Clonidine (Clonidine 0.1 Mg Patch.Tdwk) 0.1 mg TRANSDERMA Tu@0900 COUNTS [facility]CLUDE 234 BEDS AT THE [facility]; Protocol Last Admin: 06/23/24 08:19 Dose: 0.1 mg Documented By: CELINE Enoxaparin Sodium (Enoxaparin Sodium 40 Mg/0.4 Ml Syringe) 40 mg SUBCUT Q24H COUNTS INCLUDE 234 BEDS AT THE [facility] Last Admin: 06/28/24 15:16 Dose: 40 mg Documented By: LATRICE Loperamide HCl (Loperamide Hcl 2 Mg Capsule) 2 mg PO Q4H PRN PRN Reason: Diarrhea Last Admin: 04/27/24 15:22 Dose: 2 mg Documented By: JESSICA Magnesium Hydroxide (Milk Of Magnesia 30 Ml Oral.Susp) 30 ml PO DAILY PRN PRN Reason: Constipation Melatonin (Melatonin 3 Mg Tablet) 6 mg PO BEDTIME PRN PRN Reason: Insomnia Last Admin: 04/29/24 19:24 Dose: 6 mg Miconazole Nitrate (Miconazole Nitrate 2% Powder 85 Gm Bottle) 1 appl TOPICAL BID PRN; Protocol PRN Reason: yeast Nicotine Polacrilex (Nicotine Polacrilex 2 Mg Gum) 4 mg BUCCAL Q2H PRN PRN Reason: Nicotine Cravings Ondansetron HCl (Ondansetron Hcl 4 Mg/2 Ml Vial) 4 mg IVPUSH Q8H PRN PRN Reason: Nausea and Vomiting Last Admin: 03/02/24 18:44 Dose: 4 mg Documented By: SEN Ondansetron HCl (Ondansetron Odt 4 Mg Tab.Rapdis) 4 mg TRANSLINGU Q6H PRN PRN Reason: Nausea and Vomiting Last Admin: 04/08/24 19:57 Dose: 4 mg Documented By: GERARDO-ZADRT Trazodone HCl (Trazodone Hcl 25 Mg Halftab) 25 mg PO BEDTIME PRN PRN Reason: Insomnia Last Admin: 04/29/24 19:24 Dose: 25 mg Labs 06/20/24 08:27 06/27/24 06:00 Assessment and Plan (1) Cognitive and behavioral changes: Status: Acute Plan 83M PMH htn, unspecified dementia, admitted to [facility] 02/13/24 for FTT, not taking meds or food. Transferred to medicine 02/14/24. 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 Re-consult if any further concerns. DVT prophylaxis with Lovenox Full Code reason for continued hospitalization: awaiting LTC placement The patient HCP is his step-daughter Alcides can be reached on Patient sister name is Dr. Nate Genao and her phone number is to be contacted for any updates. Quality Stroke Does the patient have a stroke diagnosis?: No VTE Prior VTE?: No VTE Risk Level:: Medical - moderate - high VTE Device Contraindication: Treatment Not Indicated VTE Drug Contraindication: N/A - Med Ordered
--- NOTE | 2024-06-29 09:03 | HO.WOUND ---
Wound Consult: New Skin Tear Consult placed 84yr old?male admitted to [facility] on 02/14/24 - See progress notes and H&P for detailed history.? New wound consult placed for Left forearm skin tear.? Chart review reveals skin tear topical orders were discontinued by staff - new topical recommendation added to worklist. Patient not see and assessed for skin tear today - direct care team to continue to treat and observe. Left forearm Skin Tear - Cleanse with normal saline, pat dry. ?Apply Xeroform secure with Abd pads, gauze wrap and tape. Change Daily. ?Do not apply tape to patient?s skin.? Avoid Adhesive application to skin - when necessary, apply skin prep prior.? Re-consult wound care Nurse for wound deterioration or wound changes.
--- NOTE | 2024-06-29 13:44 | MHC.CLN ---
F/U DIET=REGULAR, CHOPPED. CONTINUE SUPPLEMENTS: MAGIC CUP TID (870 KCALS, 27 G PROTEIN) AND ENSURE TID (1050 KCALS, 60 G PROTEIN). CONTINUES WITH VARIABLE INTAKE, REFUSE-100%. ACCEPTS MAGIC CUP AND ENSURE. WEIGHT LOSS X 3 MONTHS -7.4% CONTINUE CURRENT DIET AND SUPPLEMENTS AND ENCOURAGE PO INTAKE ABLE. RD TO FOLLOW UP WEEKLY.
--- NOTE | 2024-06-29 14:07 | MHC.CM.PN ---
EMR REVIEWED. PT REMAINS MEDICALLY CLEARED. CM SPOKE WITH [facility] AND THEY WILL REACH OUT TO [facility] TO PROVIDE THE INFORMATION THEY ARE SEEKING TO ACCEPT PT. CM CONTINUES TO FOLLOW.
[2024-06-29] MEDS: Enoxaparin Sodium 40 MG/0.4 ML SYRINGE SUBCUT (15:10)
[2024-06-29 15:16] VITALS: BP 164/87; PULSE 95; RESP 18; TEMP 36.6; O2SAT 95
[2024-06-29 23:31] VITALS: BP 151/76; PULSE 63; RESP 18; TEMP 36.2; O2SAT 94
[2024-06-30 07:26] VITALS: BP 148/69; PULSE 59; RESP 16; TEMP 36.7; O2SAT 96
--- NOTE | 2024-06-30 07:40 | P.PNIM_ITS ---
Subjective Subjective Date of Service: 06/30/24 Interval History: seen and examined this morning follow up for placement no overnight events appears comfortable Physical Exam 2 Vital Signs: Vital Signs: Last Vital Signs Temp 97.2 F 06/29/24 23:31 Pulse 63 06/29/24 23:31 Resp 18 06/29/24 23:31 BP 151/76 H 06/29/24 23:31 Pulse Ox 94 06/29/24 23:31 O2 Del Method Room Air 06/29/24 23:31 O2 Flow Rate 2 03/28/24 07:24 BMI result Body Mass Index 18.7 alert and confused Objective Data Active Medications Acetaminophen (Acetaminophen 325 Mg Tablet) 650 mg PO Q6H PRN PRN Reason: Pain, Mild (Pain Scale 1-3), fever or headache Last Admin: 05/02/24 13:31 Dose: 650 mg Al Hydroxide/Mg Hydroxide (Magnesium Hydrox/Alum Hydrox 30 Ml Oral.Susp) 30 ml PO Q6H PRN PRN Reason: Constipation Benzonatate (Benzonatate 100 Mg Capsule) 100 mg PO TID PRN PRN Reason: Cough Calcium Carbonate (Calcium Carbonate 750 Mg Tab.Chew) 750 mg PO Q4H PRN PRN Reason: Heartburn Clonidine (Clonidine 0.1 Mg Patch.Tdwk) 0.1 mg TRANSDERMA Tu@0900 [facility]; Protocol Last Admin: 06/23/24 08:19 Dose: 0.1 mg Documented By: CELINE Enoxaparin Sodium (Enoxaparin Sodium 40 Mg/0.4 Ml Syringe) 40 mg SUBCUT Q24H [facility] Last Admin: 06/29/24 15:10 Dose: 40 mg Documented By: FIONA Loperamide HCl (Loperamide Hcl 2 Mg Capsule) 2 mg PO Q4H PRN PRN Reason: Diarrhea Last Admin: 04/27/24 15:22 Dose: 2 mg Documented By: JESSICA Magnesium Hydroxide (Milk Of Magnesia 30 Ml Oral.Susp) 30 ml PO DAILY PRN PRN Reason: Constipation Melatonin (Melatonin 3 Mg Tablet) 6 mg PO BEDTIME PRN PRN Reason: Insomnia Last Admin: 04/29/24 19:24 Dose: 6 mg Miconazole Nitrate (Miconazole Nitrate 2% Powder 85 Gm Bottle) 1 appl TOPICAL BID PRN; Protocol PRN Reason: yeast Nicotine Polacrilex (Nicotine Polacrilex 2 Mg Gum) 4 mg BUCCAL Q2H PRN PRN Reason: Nicotine Cravings Ondansetron HCl (Ondansetron Hcl 4 Mg/2 Ml Vial) 4 mg IVPUSH Q8H PRN PRN Reason: Nausea and Vomiting Last Admin: 03/02/24 18:44 Dose: 4 mg Documented By: SEN Ondansetron HCl (Ondansetron Odt 4 Mg Tab.Rapdis) 4 mg TRANSLINGU Q6H PRN PRN Reason: Nausea and Vomiting Last Admin: 04/08/24 19:57 Dose: 4 mg Documented By: GERARDO-ZADRT Trazodone HCl (Trazodone Hcl 25 Mg Halftab) 25 mg PO BEDTIME PRN PRN Reason: Insomnia Last Admin: 04/29/24 19:24 Dose: 25 mg Labs 06/20/24 08:27 06/27/24 06:00 Assessment and Plan (1) Cognitive and behavioral changes: Status: Acute Plan 83M PMH htn, unspecified dementia, admitted to [facility] 02/13/24 for FTT, not taking meds or food. Transferred to medicine 02/14/24. 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 Re-consult if any further concerns. DVT prophylaxis with Lovenox Full Code reason for continued hospitalization: awaiting LTC placement The patient HCP is his step-daughter Alcides can be reached on Patient sister name is Dr. Nate Genao and her phone number is to be contacted for any updates. Quality Stroke Does the patient have a stroke diagnosis?: No VTE Prior VTE?: No VTE Risk Level:: Medical - moderate - high VTE Device Contraindication: Treatment Not Indicated VTE Drug Contraindication: N/A - Med Ordered
[2024-06-30] MEDS: cloNIDine 0.1 MG PATCH.TDWK TRANSDERMA (08:22)
--- NOTE | 2024-06-30 13:51 | MHC.CM.PN ---
PT REMAINS MEDICALLY CLEARED VIA MD ROUNDS. CM MESSAGED CL FOR [facility] REGARDING STATUS OF CENTER'S FINANCIAL REVIEW WITH NEW DOCUMENTS, AWAITING RESPONSE.
[2024-06-30] MEDS: Enoxaparin Sodium 40 MG/0.4 ML SYRINGE SUBCUT (15:13)
[2024-06-30 15:36] VITALS: BP 169/86; PULSE 98; RESP 18; TEMP 36.8; O2SAT 97
[2024-06-30 23:08] VITALS: BP 143/74; PULSE 83; RESP 17; TEMP 36; O2SAT 96
[2024-07-01 08:00] VITALS: BP 148/76; PULSE 62; RESP 16; TEMP 36.5; O2SAT 98
--- NOTE | 2024-07-01 08:54 | HO.PM.IMPN ---
Subjective Subjective Date of Service: 07/01/24 Interval History: seen and examined this morning follow up for placement no overnight events appears comfortable Physical Exam Vital Signs: Vital Signs: Last Vital Signs Temp 97.7 F 07/01/24 08:00 Pulse 62 07/01/24 08:00 Resp 16 07/01/24 08:00 BP 148/76 H 07/01/24 08:00 Pulse Ox 98 07/01/24 08:00 O2 Del Method Room Air 07/01/24 08:00 O2 Flow Rate 2 03/28/24 07:24 BMI result Body Mass Index 18.7 Appearing in no acute distress lung sounds are clear to auscultation heart regular rate rhythm, clear S1, S2 positive bowel sounds, abdomen is soft, nontender neuro patient is alert x3, no focal deficits Objective Data Active Medications Acetaminophen (Acetaminophen 325 Mg Tablet) 650 mg PO Q6H PRN PRN Reason: Pain, Mild (Pain Scale 1-3), fever or headache Last Admin: 05/02/24 13:31 Dose: 650 mg Al Hydroxide/Mg Hydroxide (Magnesium Hydrox/Alum Hydrox 30 Ml Oral.Susp) 30 ml PO Q6H PRN PRN Reason: Constipation Benzonatate (Benzonatate 100 Mg Capsule) 100 mg PO TID PRN PRN Reason: Cough Calcium Carbonate (Calcium Carbonate 750 Mg Tab.Chew) 750 mg PO Q4H PRN PRN Reason: Heartburn Clonidine (Clonidine 0.1 Mg Patch.Tdwk) 0.1 mg TRANSDERMA Tu@0900 [facility]; Protocol Last Admin: 06/30/24 08:22 Dose: 0.1 mg Documented By: LATRICIA Enoxaparin Sodium (Enoxaparin Sodium 40 Mg/0.4 Ml Syringe) 40 mg SUBCUT Q24H [facility] Last Admin: 06/30/24 15:13 Dose: 40 mg Documented By: MARIANNE Loperamide HCl (Loperamide Hcl 2 Mg Capsule) 2 mg PO Q4H PRN PRN Reason: Diarrhea Last Admin: 04/27/24 15:22 Dose: 2 mg Documented By: JESSICA Magnesium Hydroxide (Milk Of Magnesia 30 Ml Oral.Susp) 30 ml PO DAILY PRN PRN Reason: Constipation Melatonin (Melatonin 3 Mg Tablet) 6 mg PO BEDTIME PRN PRN Reason: Insomnia Last Admin: 04/29/24 19:24 Dose: 6 mg Miconazole Nitrate (Miconazole Nitrate 2% Powder 85 Gm Bottle) 1 appl TOPICAL BID PRN; Protocol PRN Reason: yeast Nicotine Polacrilex (Nicotine Polacrilex 2 Mg Gum) 4 mg BUCCAL Q2H PRN PRN Reason: Nicotine Cravings Ondansetron HCl (Ondansetron Hcl 4 Mg/2 Ml Vial) 4 mg IVPUSH Q8H PRN PRN Reason: Nausea and Vomiting Last Admin: 03/02/24 18:44 Dose: 4 mg Documented By: SEN Ondansetron HCl (Ondansetron Odt 4 Mg Tab.Rapdis) 4 mg TRANSLINGU Q6H PRN PRN Reason: Nausea and Vomiting Last Admin: 04/08/24 19:57 Dose: 4 mg Documented By: CAPRICEZADRNeville Trazodone HCl (Trazodone Hcl 25 Mg Halftab) 25 mg PO BEDTIME PRN PRN Reason: Insomnia Last Admin: 04/29/24 19:24 Dose: 25 mg Labs 06/20/24 08:27 06/27/24 06:00 Assessment and Plan (1) Cognitive and behavioral changes: Status: Acute Plan 83M PMH htn, unspecified dementia, [facility] for FTT, not taking meds or food. Transferred to medicine 02/14/24. 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 Re-consult if any further concerns. DVT prophylaxis with Lovenox Full Code reason for continued hospitalization: awaiting LTC placement The patient HCP is his step-daughter Alcides can be reached on Patient sister name is Dr. Nate Genao and her phone number is to be contacted for any updates. Quality Stroke Does the patient have a stroke diagnosis?: No VTE Prior VTE?: No VTE Risk Level:: Medical - moderate - high VTE Device Contraindication: Treatment Not Indicated VTE Drug Contraindication: N/A - Med Ordered
--- NOTE | 2024-07-01 12:50 | MHC.CM.PN ---
EMR REVIEWED. PER MD ROUNDS, PT REMAINS MEDICALLY CLEARED. [facility] ARE CONTINUING TO WORK TOGETHER TOWARDS GETTING PT ADMITTED TO [facility].
[2024-07-01] MEDS: Enoxaparin Sodium 40 MG/0.4 ML SYRINGE SUBCUT (14:38)
[2024-07-01 15:10] VITALS: BP 170/75; PULSE 71; RESP 18; TEMP 36.6; O2SAT 97
[2024-07-01 15:25] VITALS: BP 154/73; PULSE 68
[2024-07-01 23:15] VITALS: BP 137/65; PULSE 67; RESP 17; TEMP 36.1; O2SAT 98
[2024-07-02 07:23] VITALS: BP 159/79; PULSE 68; RESP 18; TEMP 36.5; O2SAT 97
--- NOTE | 2024-07-02 11:02 | HO.PM.IMPN ---
Subjective Subjective Date of Service: 07/02/24 Interval History: Seen and examined this morning Follow-up for placement No overnight events Resting comfortably this morning Physical Exam Vital Signs: Vital Signs: Last Vital Signs Temp 97.7 F 07/02/24 07:23 Pulse 68 07/02/24 07:23 Resp 18 07/02/24 07:23 BP 159/79 H 07/02/24 07:23 Pulse Ox 97 07/02/24 07:23 O2 Del Method Room Air 07/02/24 07:23 O2 Flow Rate 2 03/28/24 07:24 BMI result Body Mass Index 18.7 Const: General: comfortable, no acute distress, alert and awake Nutritional Appearance: thin Orientation/consciousness: oriented to person Resp: Effort & Inspection: normal respiratory effort, no respiratory distress and no use of accessory muscles GI: Inspection: No distended Palpation (GI): nontender Neuro: Other: grossly nonfocal General: oriented to person Extrem: General: Yes no pedal edema Objective Data Active Medications Acetaminophen (Acetaminophen 325 Mg Tablet) 650 mg PO Q6H PRN PRN Reason: Pain, Mild (Pain Scale 1-3), fever or headache Last Admin: 05/02/24 13:31 Dose: 650 mg Al Hydroxide/Mg Hydroxide (Magnesium Hydrox/Alum Hydrox 30 Ml Oral.Susp) 30 ml PO Q6H PRN PRN Reason: Constipation Benzonatate (Benzonatate 100 Mg Capsule) 100 mg PO TID PRN PRN Reason: Cough Calcium Carbonate (Calcium Carbonate 750 Mg Tab.Chew) 750 mg PO Q4H PRN PRN Reason: Heartburn Clonidine (Clonidine 0.1 Mg Patch.Tdwk) 0.1 mg TRANSDERMA Tu@0900 [facility]; Protocol Last Admin: 06/30/24 08:22 Dose: 0.1 mg Documented By: LATRICIA Enoxaparin Sodium (Enoxaparin Sodium 40 Mg/0.4 Ml Syringe) 40 mg SUBCUT Q24H [facility] Last Admin: 07/01/24 14:38 Dose: 40 mg Documented By: THOM Loperamide HCl (Loperamide Hcl 2 Mg Capsule) 2 mg PO Q4H PRN PRN Reason: Diarrhea Last Admin: 04/27/24 15:22 Dose: 2 mg Documented By: JESSICA Magnesium Hydroxide (Milk Of Magnesia 30 Ml Oral.Susp) 30 ml PO DAILY PRN PRN Reason: Constipation Melatonin (Melatonin 3 Mg Tablet) 6 mg PO BEDTIME PRN PRN Reason: Insomnia Last Admin: 04/29/24 19:24 Dose: 6 mg Miconazole Nitrate (Miconazole Nitrate 2% Powder 85 Gm Bottle) 1 appl TOPICAL BID PRN; Protocol PRN Reason: yeast Nicotine Polacrilex (Nicotine Polacrilex 2 Mg Gum) 4 mg BUCCAL Q2H PRN PRN Reason: Nicotine Cravings Ondansetron HCl (Ondansetron Hcl 4 Mg/2 Ml Vial) 4 mg IVPUSH Q8H PRN PRN Reason: Nausea and Vomiting Last Admin: 03/02/24 18:44 Dose: 4 mg Documented By: SEN Ondansetron HCl (Ondansetron Odt 4 Mg Tab.Rapdis) 4 mg TRANSLINGU Q6H PRN PRN Reason: Nausea and Vomiting Last Admin: 04/08/24 19:57 Dose: 4 mg Documented By: GERARDO-ZADRNeville Trazodone HCl (Trazodone Hcl 25 Mg Halftab) 25 mg PO BEDTIME PRN PRN Reason: Insomnia Last Admin: 04/29/24 19:24 Dose: 25 mg Labs 06/20/24 08:27 06/27/24 06:00 Assessment and Plan (1) Cognitive and behavioral changes: Status: Acute Plan 83M PMH htn, unspecified dementia, admitted to [facility] 02/13/24 for FTT, not taking meds or food. Transferred to medicine 02/14/24. 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 Re-consult if any further concerns. DVT prophylaxis with Lovenox Full Code reason for continued hospitalization: awaiting LTC placement The patient HCP is his step-daughter Alcides can be reached on Patient sister name is Dr. Nate Genao and her phone number is to be contacted for any updates. Quality Stroke Does the patient have a stroke diagnosis?: No VTE Prior VTE?: No VTE Risk Level:: Medical - moderate - high VTE Device Contraindication: Treatment Not Indicated VTE Drug Contraindication: N/A - Med Ordered
[2024-07-02 15:01] VITALS: BP 134/71; PULSE 69; RESP 18; TEMP 37.1; O2SAT 95
[2024-07-02] MEDS: Enoxaparin Sodium 40 MG/0.4 ML SYRINGE SUBCUT (16:34)
[2024-07-02 23:21] VITALS: RESP 16
--- NOTE | 2024-07-02 23:27 | PC.NURSE ---
patient refusing care at this time. including vitals, nursing assessment
[2024-07-03 05:34] VITALS: BP 124/75; PULSE 65; RESP 16; TEMP 36.4; O2SAT 98
[2024-07-03 07:41] VITALS: BP 122/66; PULSE 60; RESP 18; TEMP 36.7; O2SAT 98
[2024-07-03 08:12] LABS: Hemoglobin 14.5 g/dl (14.0-18.0); Mean Corpuscular HGB Conc 36.3 g/dl (31.0-36.0); Mean Corpuscular Hemoglobin 32.7 pg (27.0-33.0); Mean Corpuscular Volume 90.1 fL (80.0-98.0); Platelet Count 209 X10*3/uL (160-400); Red Blood Count 4.44 X10*6/uL (4.60-5.80); Red Cell Distribution Width 13.3 % (11.0-16.0); White Blood Count 5.9 X10*3/uL (4.8-10.8)
[2024-07-03 08:33] LABS: Anion Gap 10 (12-20); Blood Urea Nitrogen 12 mg/dL (9-16); Calcium 9.2 mg/dL (8.4-10.2); Carbon Dioxide 24 mmol/L (22-29); Chloride 110 mmol/L (96-108); Creatinine Clr Calc Pharmacy 85.4; Estimated Glomerular Filt Rate > 60; Glucose Random 92 mg/dL (60-115); Potassium 3.9 mmol/L (3.3-5.1); Sodium 140 mmol/L (135-145)
--- NOTE | 2024-07-03 10:38 | P.PNIM_ITS ---
Subjective Subjective Date of Service: 07/03/24 Interval History: Seen and examined this morning Follow-up for placement No overnight events Resting comfortably this morning Physical Exam 2 Vital Signs: Vital Signs: Last Vital Signs Temp 98.1 F 07/03/24 07:41 Pulse 60 07/03/24 07:41 Resp 18 07/03/24 07:41 BP 122/66 07/03/24 07:41 Pulse Ox 98 07/03/24 07:41 O2 Del Method Room Air 07/03/24 07:41 O2 Flow Rate 2 03/28/24 07:24 BMI result Body Mass Index 18.7 Essential unchanged. Cardiovascular : rrr,s1s2 heard. Skin : Warm, Dry Neurological : Alert & disoriented to place and time, No focal deficiency, flat affect Objective Data Active Medications Acetaminophen (Acetaminophen 325 Mg Tablet) 650 mg PO Q6H PRN PRN Reason: Pain, Mild (Pain Scale 1-3), fever or headache Last Admin: 05/02/24 13:31 Dose: 650 mg Al Hydroxide/Mg Hydroxide (Magnesium Hydrox/Alum Hydrox 30 Ml Oral.Susp) 30 ml PO Q6H PRN PRN Reason: Constipation Benzonatate (Benzonatate 100 Mg Capsule) 100 mg PO TID PRN PRN Reason: Cough Calcium Carbonate (Calcium Carbonate 750 Mg Tab.Chew) 750 mg PO Q4H PRN PRN Reason: Heartburn Clonidine (Clonidine 0.1 Mg Patch.Tdwk) 0.1 mg TRANSDERMA Tu@0900 [facility]; Protocol Last Admin: 06/30/24 08:22 Dose: 0.1 mg Documented By: LATRICIA Enoxaparin Sodium (Enoxaparin Sodium 40 Mg/0.4 Ml Syringe) 40 mg SUBCUT Q24H [facility] Last Admin: 07/02/24 16:34 Dose: 40 mg Documented By: SHAHEED Loperamide HCl (Loperamide Hcl 2 Mg Capsule) 2 mg PO Q4H PRN PRN Reason: Diarrhea Last Admin: 04/27/24 15:22 Dose: 2 mg Documented By: JESSICA Magnesium Hydroxide (Milk Of Magnesia 30 Ml Oral.Susp) 30 ml PO DAILY PRN PRN Reason: Constipation Melatonin (Melatonin 3 Mg Tablet) 6 mg PO BEDTIME PRN PRN Reason: Insomnia Last Admin: 04/29/24 19:24 Dose: 6 mg Miconazole Nitrate (Miconazole Nitrate 2% Powder 85 Gm Bottle) 1 appl TOPICAL BID PRN; Protocol PRN Reason: yeast Nicotine Polacrilex (Nicotine Polacrilex 2 Mg Gum) 4 mg BUCCAL Q2H PRN PRN Reason: Nicotine Cravings Ondansetron HCl (Ondansetron Hcl 4 Mg/2 Ml Vial) 4 mg IVPUSH Q8H PRN PRN Reason: Nausea and Vomiting Last Admin: 03/02/24 18:44 Dose: 4 mg Documented By: SEN Ondansetron HCl (Ondansetron Odt 4 Mg Tab.Rapdis) 4 mg TRANSLINGU Q6H PRN PRN Reason: Nausea and Vomiting Last Admin: 04/08/24 19:57 Dose: 4 mg Documented By: JENSEN Trazodone HCl (Trazodone Hcl 25 Mg Halftab) 25 mg PO BEDTIME PRN PRN Reason: Insomnia Last Admin: 04/29/24 19:24 Dose: 25 mg Labs 07/03/24 07:58 07/03/24 07:58 Labs: Laboratory Results - last 24 hr 07/03/24 07:58 MCV 90.1 MCH 32.7 MCHC 36.3 H RDW 13.3 Plt Count 209 MPV 10.0 Absolute Nucleated RBC 0.000 Nucleated RBC % (auto) 0.0 Anion Gap 10 L Estim Creat Clear Calc 85.4 Estimated GFR > 60 Random Glucose 92 Calcium 9.2 D Assessment and Plan (1) Cognitive and behavioral changes: Status: Acute Plan 83M PMH htn, unspecified dementia, admitted to [facility] 02/13/24 for FTT, not taking meds or food. Transferred to medicine 02/14/24. 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 Re-consult if any further concerns. DVT prophylaxis with Lovenox Full Code reason for continued hospitalization: awaiting LTC placement The patient HCP is his step-daughter Alcides can be reached on Patient sister name is Dr. Nate Genao and her phone number is to be contacted for any updates. Routine labs today--CBC, BMP 07/03 unremarkable. Quality Stroke Does the patient have a stroke diagnosis?: No VTE Prior VTE?: No VTE Risk Level:: Medical - moderate - high VTE Device Contraindication: Treatment Not Indicated VTE Drug Contraindication: N/A - Med Ordered
--- NOTE | 2024-07-03 13:10 | MHC.CM.PN ---
EMR REVIEWED . PT REMAINS MEDICALLY CLEARED. REMAINS MH PENDING, A FEW CENTERS FOLLOWING BUT NO BED OFFERS YET. CM CONTINUES TO FOLLOW.
[2024-07-03] MEDS: Enoxaparin Sodium 40 MG/0.4 ML SYRINGE SUBCUT (14:59)
[2024-07-03 15:52] VITALS: BP 136/65; PULSE 64; RESP 16; TEMP 36.6; O2SAT 98
[2024-07-03 19:13] VITALS: BP 127/64; PULSE 69; RESP 16; TEMP 36.7; O2SAT 95
[2024-07-03 23:35] VITALS: BP 129/81; PULSE 69; RESP 18; TEMP 36.6; O2SAT 94
[2024-07-04 08:00] VITALS: BP 122/58; PULSE 59; RESP 14; TEMP 36.4; O2SAT 94
--- NOTE | 2024-07-04 08:47 | P.PNIM_ITS ---
Subjective Subjective Date of Service: 07/04/24 Interval History: Comfortable, no new issues Physical Exam 2 Vital Signs: Vital Signs: Last Vital Signs Temp 97.5 F 07/04/24 08:00 Pulse 59 07/04/24 08:00 Resp 14 07/04/24 08:00 BP 122/58 L 07/04/24 08:00 Pulse Ox 94 07/04/24 08:00 O2 Del Method Room Air 07/03/24 23:35 O2 Flow Rate 2 03/28/24 07:24 BMI result Body Mass Index 18.7 Essential unchanged. Cardiovascular : rrr,s1s2 heard. Skin : Warm, Dry Neurological : Alert & disoriented to place and time, No focal deficiency, flat affect Objective Data Active Medications Acetaminophen (Acetaminophen 325 Mg Tablet) 650 mg PO Q6H PRN PRN Reason: Pain, Mild (Pain Scale 1-3), fever or headache Last Admin: 05/02/24 13:31 Dose: 650 mg Al Hydroxide/Mg Hydroxide (Magnesium Hydrox/Alum Hydrox 30 Ml Oral.Susp) 30 ml PO Q6H PRN PRN Reason: Constipation Benzonatate (Benzonatate 100 Mg Capsule) 100 mg PO TID PRN PRN Reason: Cough Calcium Carbonate (Calcium Carbonate 750 Mg Tab.Chew) 750 mg PO Q4H PRN PRN Reason: Heartburn Clonidine (Clonidine 0.1 Mg Patch.Tdwk) 0.1 mg TRANSDERMA Tu@0900 [facility]; Protocol Last Admin: 06/30/24 08:22 Dose: 0.1 mg Documented By: LATRICIA Enoxaparin Sodium (Enoxaparin Sodium 40 Mg/0.4 Ml Syringe) 40 mg SUBCUT Q24H [facility] Last Admin: 07/03/24 14:59 Dose: 40 mg Documented By: CELINE Loperamide HCl (Loperamide Hcl 2 Mg Capsule) 2 mg PO Q4H PRN PRN Reason: Diarrhea Last Admin: 04/27/24 15:22 Dose: 2 mg Documented By: JESSICA Magnesium Hydroxide (Milk Of Magnesia 30 Ml Oral.Susp) 30 ml PO DAILY PRN PRN Reason: Constipation Melatonin (Melatonin 3 Mg Tablet) 6 mg PO BEDTIME PRN PRN Reason: Insomnia Last Admin: 04/29/24 19:24 Dose: 6 mg Miconazole Nitrate (Miconazole Nitrate 2% Powder 85 Gm Bottle) 1 appl TOPICAL BID PRN; Protocol PRN Reason: yeast Nicotine Polacrilex (Nicotine Polacrilex 2 Mg Gum) 4 mg BUCCAL Q2H PRN PRN Reason: Nicotine Cravings Ondansetron HCl (Ondansetron Hcl 4 Mg/2 Ml Vial) 4 mg IVPUSH Q8H PRN PRN Reason: Nausea and Vomiting Last Admin: 03/02/24 18:44 Dose: 4 mg Documented By: SEN Ondansetron HCl (Ondansetron Odt 4 Mg Tab.Rapdis) 4 mg TRANSLINGU Q6H PRN PRN Reason: Nausea and Vomiting Last Admin: 04/08/24 19:57 Dose: 4 mg Documented By: GERARDO-ZADRNeville Trazodone HCl (Trazodone Hcl 25 Mg Halftab) 25 mg PO BEDTIME PRN PRN Reason: Insomnia Last Admin: 04/29/24 19:24 Dose: 25 mg Labs 07/03/24 07:58 07/03/24 07:58 Assessment and Plan (1) Cognitive and behavioral changes: Status: Acute Plan 83M PMH htn, unspecified dementia, admitted to [facility] 02/13/24 for FTT, not taking meds or food. Transferred to medicine 02/14/24. 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 Re-consult if any further concerns. DVT prophylaxis with Lovenox Full Code reason for continued hospitalization: awaiting LTC placement The patient HCP is his step-daughter Alcides can be reached on Patient sister name is Dr. Nate Genao and her phone number is to be contacted for any updates. Routine labs today--CBC, BMP 07/03 unremarkable. Quality Stroke Does the patient have a stroke diagnosis?: No VTE Prior VTE?: No VTE Risk Level:: Medical - moderate - high VTE Device Contraindication: Treatment Not Indicated VTE Drug Contraindication: N/A - Med Ordered
--- NOTE | 2024-07-04 09:12 | PC.NURSE ---
Dressing changed done by this property underwriter, pt tolerated poorly, screaming and yelling, LUIGI gómezan in to assist with calming patient while this property underwriter changed skin tear dressing on LUE.
[2024-07-04] MEDS: Enoxaparin Sodium 40 MG/0.4 ML SYRINGE SUBCUT (15:20)
[2024-07-04 15:28] VITALS: BP 152/70; PULSE 60; RESP 18; TEMP 36.8; O2SAT 97
--- NOTE | 2024-07-04 16:59 | PC.NURSE ---
Pt removed dressing to LUE, Fresh epithelial tissue, will leave FITTER AND TURNER.
[2024-07-05] VITALS: BP 150/69; PULSE 64; RESP 18; TEMP 36.4; O2SAT 96
[2024-07-05 08:00] VITALS: BP 147/79; PULSE 55; RESP 16; TEMP 36.6; O2SAT 98
--- NOTE | 2024-07-05 09:29 | HO.PM.IMPN ---
Subjective Subjective Date of Service: 07/05/24 Interval History: Comfortable, no new issues Physical Exam Vital Signs: Vital Signs: Last Vital Signs Temp 97.8 F 07/05/24 08:00 Pulse 55 07/05/24 08:00 Resp 16 07/05/24 08:00 BP 147/79 H 07/05/24 08:00 Pulse Ox 98 07/05/24 08:00 O2 Del Method Room Air 07/05/24 08:00 O2 Flow Rate 2 03/28/24 07:24 BMI result Body Mass Index 18.7 Objective Data Active Medications Acetaminophen (Acetaminophen 325 Mg Tablet) 650 mg PO Q6H PRN PRN Reason: Pain, Mild (Pain Scale 1-3), fever or headache Last Admin: 05/02/24 13:31 Dose: 650 mg Al Hydroxide/Mg Hydroxide (Magnesium Hydrox/Alum Hydrox 30 Ml Oral.Susp) 30 ml PO Q6H PRN PRN Reason: Constipation Benzonatate (Benzonatate 100 Mg Capsule) 100 mg PO TID PRN PRN Reason: Cough Calcium Carbonate (Calcium Carbonate 750 Mg Tab.Chew) 750 mg PO Q4H PRN PRN Reason: Heartburn Clonidine (Clonidine 0.1 Mg Patch.Tdwk) 0.1 mg TRANSDERMA Tu@0900 [facility]; Protocol Last Admin: 06/30/24 08:22 Dose: 0.1 mg Documented By: LATRICIA Loperamide HCl (Loperamide Hcl 2 Mg Capsule) 2 mg PO Q4H PRN PRN Reason: Diarrhea Last Admin: 04/27/24 15:22 Dose: 2 mg Documented By: JESSICA Magnesium Hydroxide (Milk Of Magnesia 30 Ml Oral.Susp) 30 ml PO DAILY PRN PRN Reason: Constipation Melatonin (Melatonin 3 Mg Tablet) 6 mg PO BEDTIME PRN PRN Reason: Insomnia Last Admin: 04/29/24 19:24 Dose: 6 mg Miconazole Nitrate (Miconazole Nitrate 2% Powder 85 Gm Bottle) 1 appl TOPICAL BID PRN; Protocol PRN Reason: yeast Nicotine Polacrilex (Nicotine Polacrilex 2 Mg Gum) 4 mg BUCCAL Q2H PRN PRN Reason: Nicotine Cravings Ondansetron HCl (Ondansetron Hcl 4 Mg/2 Ml Vial) 4 mg IVPUSH Q8H PRN PRN Reason: Nausea and Vomiting Last Admin: 03/02/24 18:44 Dose: 4 mg Documented By: SEN Ondansetron HCl (Ondansetron Odt 4 Mg Tab.Rapdis) 4 mg TRANSLINGU Q6H PRN PRN Reason: Nausea and Vomiting Last Admin: 04/08/24 19:57 Dose: 4 mg Documented By: GERARDO-ZADRT Trazodone HCl (Trazodone Hcl 25 Mg Halftab) 25 mg PO BEDTIME PRN PRN Reason: Insomnia Last Admin: 04/29/24 19:24 Dose: 25 mg Labs 07/03/24 07:58 07/03/24 07:58 Assessment and Plan (1) Cognitive and behavioral changes: Status: Acute Plan 83M PMH htn, unspecified dementia, [facility] 02[facility]24 for FTT, not taking meds or food. Transferred to medicine 02/14/24. 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 Re-consult if any further concerns. DVT prophylaxis with Lovenox Full Code reason for continued hospitalization: awaiting LTC placement The patient HCP is his step-daughter Alcides can be reached on Patient sister name is Dr. Nate Genao and her phone number is to be contacted for any updates. Routine labs today--CBC, BMP 07/03 unremarkable. Quality Stroke Does the patient have a stroke diagnosis?: No VTE Prior VTE?: No VTE Risk Level:: Medical - moderate - high VTE Device Contraindication: Treatment Not Indicated VTE Drug Contraindication: N/A - Med Ordered
[2024-07-05 15:44] VITALS: BP 151/92; PULSE 74; RESP 16; TEMP 36.5; O2SAT 95
[2024-07-05 23:22] VITALS: BP 133/62; PULSE 62; RESP 16; TEMP 36.1; O2SAT 96
[2024-07-06 07:30] VITALS: BP 150/70; PULSE 60; RESP 16; TEMP 36.6; O2SAT 98
--- NOTE | 2024-07-06 09:57 | HO.PM.IMPN ---
Subjective Subjective Date of Service: 07/06/24 Interval History: No issues repported, appear comfortable. Physical Exam Vital Signs: Vital Signs: Last Vital Signs Temp 97.9 F 07/06/24 07:30 Pulse 60 07/06/24 07:30 Resp 16 07/06/24 07:30 BP 150/70 H 07/06/24 07:30 Pulse Ox 98 07/06/24 07:30 O2 Del Method Room Air 07/06/24 07:30 O2 Flow Rate 2 03/28/24 07:24 BMI result Body Mass Index 18.7 Essential unchanged. Cardiovascular : rrr,s1s2 heard. Skin : Warm, Dry Neurological : Alert & disoriented to place and time, No focal deficiency, flat affect Objective Data Active Medications Acetaminophen (Acetaminophen 325 Mg Tablet) 650 mg PO Q6H PRN PRN Reason: Pain, Mild (Pain Scale 1-3), fever or headache Last Admin: 05/02/24 13:31 Dose: 650 mg Al Hydroxide/Mg Hydroxide (Magnesium Hydrox/Alum Hydrox 30 Ml Oral.Susp) 30 ml PO Q6H PRN PRN Reason: Constipation Benzonatate (Benzonatate 100 Mg Capsule) 100 mg PO TID PRN PRN Reason: Cough Calcium Carbonate (Calcium Carbonate 750 Mg Tab.Chew) 750 mg PO Q4H PRN PRN Reason: Heartburn Clonidine (Clonidine 0.1 Mg Patch.Tdwk) 0.1 mg TRANSDERMA Tu@0900 COUNTS INCLUDE 234 BEDS AT THE [facility]; Protocol Last Admin: 06/30/24 08:22 Dose: 0.1 mg Documented By: LATRICIA Loperamide HCl (Loperamide Hcl 2 Mg Capsule) 2 mg PO Q4H PRN PRN Reason: Diarrhea Last Admin: 04/27/24 15:22 Dose: 2 mg Documented By: JESSICA Magnesium Hydroxide (Milk Of Magnesia 30 Ml Oral.Susp) 30 ml PO DAILY PRN PRN Reason: Constipation Melatonin (Melatonin 3 Mg Tablet) 6 mg PO BEDTIME PRN PRN Reason: Insomnia Last Admin: 04/29/24 19:24 Dose: 6 mg Miconazole Nitrate (Miconazole Nitrate 2% Powder 85 Gm Bottle) 1 appl TOPICAL BID PRN; Protocol PRN Reason: yeast Nicotine Polacrilex (Nicotine Polacrilex 2 Mg Gum) 4 mg BUCCAL Q2H PRN PRN Reason: Nicotine Cravings Ondansetron HCl (Ondansetron Hcl 4 Mg/2 Ml Vial) 4 mg IVPUSH Q8H PRN PRN Reason: Nausea and Vomiting Last Admin: 03/02/24 18:44 Dose: 4 mg Documented By: SEN Ondansetron HCl (Ondansetron Odt 4 Mg Tab.Rapdis) 4 mg TRANSLINGU Q6H PRN PRN Reason: Nausea and Vomiting Last Admin: 04/08/24 19:57 Dose: 4 mg Documented By: GERARDO-ZADRT Trazodone HCl (Trazodone Hcl 25 Mg Halftab) 25 mg PO BEDTIME PRN PRN Reason: Insomnia Last Admin: 04/29/24 19:24 Dose: 25 mg Labs 07/03/24 07:58 07/03/24 07:58 Assessment and Plan (1) Cognitive and behavioral changes: Status: Acute Plan 83M PMH htn, unspecified dementia, admitted to [facility] 02/13/24 for FTT, not taking meds or food. Transferred to medicine 02/14/24. 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 Re-consult if any further concerns. DVT prophylaxis with Lovenox Full Code reason for continued hospitalization: awaiting LTC placement The patient HCP is his step-daughter Alcides can be reached on Patient sister name is Dr. Nate Genao and her phone number is to be contacted for any updates. Routine labs today--CBC, BMP 07/03 unremarkable. Quality Stroke Does the patient have a stroke diagnosis?: No VTE Prior VTE?: No VTE Risk Level:: Medical - moderate - high VTE Device Contraindication: Treatment Not Indicated VTE Drug Contraindication: N/A - Med Ordered
--- NOTE | 2024-07-06 11:25 | MHC.CM.PN ---
EMR REVIEWED. PT REMAINS MEDICALLY CLEARED,. MH PENDING/[employer]. REFERRALS EXPANDED WITH NO BED OFFERS YET, CM WILL CONTINUE TO FOLLOW FOR LTC PLACEMENT.
[2024-07-06] MEDS: Enoxaparin Sodium 40 MG/0.4 ML SYRINGE SUBCUT (11:48)
[2024-07-06 13:00] VITALS: BMI 19.3
--- NOTE | 2024-07-06 14:54 | MHC.CLN ---
F/U DIET=REGULAR, CHOPPED. CONTINUE SUPPLEMENTS: MAGIC CUP TID (870 KCALS, 27 G PROTEIN) AND ENSURE TID (1050 KCALS, 60 G PROTEIN). CONTINUES WITH VARIABLE INTAKE, REFUSE-100%. ACCEPTS MAGIC CUP AND ENSURE. CONTINUE CURRENT DIET AND SUPPLEMENTS AND ENCOURAGE PO INTAKE ABLE. RD TO FOLLOW UP WEEKLY. PATIENT AWAITING LTC PLACEMENT.
[2024-07-06 15:11] VITALS: BP 145/76; PULSE 76; RESP 16; TEMP 36.6; O2SAT 95
[2024-07-06 23:32] VITALS: BP 121/60; PULSE 66; RESP 16; TEMP 36.4; O2SAT 95
--- NOTE | 2024-07-07 05:07 | PC.NURSE ---
Patient is incoherent and disoriented, completely lacks understanding of current treatment and care. After getting a hygiene care after an incontinent episode, the patient said pain over and over, but could not elaborate on his pain. As he was looking a bit restless and was grimacing, PRN Tylenol was dispensed for mild pain. The patient agreed to take the medication, but just when the meds were popped into a cup and were delivered, he began yelling no multiple times and pushed staff away. The patient then said I'm going to over and over until staff walked out of the room.
[2024-07-07 06:55] VITALS: BP 149/72; PULSE 65; RESP 18; TEMP 36.8; O2SAT 96
[2024-07-07] MEDS: cloNIDine 0.1 MG PATCH.TDWK TRANSDERMA (07:33)
--- NOTE | 2024-07-07 09:31 | HO.PM.IMPN ---
Subjective Subjective Date of Service: 07/07/24 Interval History: No issues repported, appear comfortable. Physical Exam Vital Signs: Vital Signs: Last Vital Signs Temp 98.2 F 07/07/24 06:55 Pulse 65 07/07/24 06:55 Resp 18 07/07/24 06:55 BP 149/72 H 07/07/24 06:55 Pulse Ox 96 07/07/24 06:55 O2 Del Method Room Air 07/07/24 06:55 O2 Flow Rate 2 03/28/24 07:24 BMI result Body Mass Index 19.3 Const: Other: General: Alert, but not oriented Resp: CTA bilateral CVS: S1,S2,RRR GI: +BS, NT, no distention Skin: No rash Neuro: motor grossly intact Psych: appropriate affect Objective Data Active Medications Acetaminophen (Acetaminophen 325 Mg Tablet) 650 mg PO Q6H PRN PRN Reason: Pain, Mild (Pain Scale 1-3), fever or headache Last Admin: 05/02/24 13:31 Dose: 650 mg Al Hydroxide/Mg Hydroxide (Magnesium Hydrox/Alum Hydrox 30 Ml Oral.Susp) 30 ml PO Q6H PRN PRN Reason: Constipation Benzonatate (Benzonatate 100 Mg Capsule) 100 mg PO TID PRN PRN Reason: Cough Calcium Carbonate (Calcium Carbonate 750 Mg Tab.Chew) 750 mg PO Q4H PRN PRN Reason: Heartburn Clonidine (Clonidine 0.1 Mg Patch.Tdwk) 0.1 mg TRANSDERMA Tu@0900 [facility]; Protocol Last Admin: 07/07/24 07:33 Dose: 0.1 mg Documented By: CELINE Enoxaparin Sodium (Enoxaparin Sodium 40 Mg/0.4 Ml Syringe) 40 mg SUBCUT Q24H [facility] Last Admin: 07/06/24 11:48 Dose: 40 mg Documented By: CELINE Loperamide HCl (Loperamide Hcl 2 Mg Capsule) 2 mg PO Q4H PRN PRN Reason: Diarrhea Last Admin: 04/27/24 15:22 Dose: 2 mg Documented By: JESSICA Magnesium Hydroxide (Milk Of Magnesia 30 Ml Oral.Susp) 30 ml PO DAILY PRN PRN Reason: Constipation Melatonin (Melatonin 3 Mg Tablet) 6 mg PO BEDTIME PRN PRN Reason: Insomnia Last Admin: 04/29/24 19:24 Dose: 6 mg Miconazole Nitrate (Miconazole Nitrate 2% Powder 85 Gm Bottle) 1 appl TOPICAL BID PRN; Protocol PRN Reason: yeast Nicotine Polacrilex (Nicotine Polacrilex 2 Mg Gum) 4 mg BUCCAL Q2H PRN PRN Reason: Nicotine Cravings Ondansetron HCl (Ondansetron Hcl 4 Mg/2 Ml Vial) 4 mg IVPUSH Q8H PRN PRN Reason: Nausea and Vomiting Last Admin: 03/02/24 18:44 Dose: 4 mg Documented By: SEN Ondansetron HCl (Ondansetron Odt 4 Mg Tab.Rapdis) 4 mg TRANSLINGU Q6H PRN PRN Reason: Nausea and Vomiting Last Admin: 04/08/24 19:57 Dose: 4 mg Documented By: GERARDO-DILMA Trazodone HCl (Trazodone Hcl 25 Mg Halftab) 25 mg PO BEDTIME PRN PRN Reason: Insomnia Last Admin: 04/29/24 19:24 Dose: 25 mg Labs 07/03/24 07:58 07/03/24 07:58 Assessment and Plan (1) Cognitive and behavioral changes: Status: Acute Plan 83M PMH htn, unspecified dementia, admitted to [facility] 02/13/24 for FTT, not taking meds or food. Transferred to medicine 02/14/24. 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 Re-consult if any further concerns. DVT prophylaxis with Lovenox Full Code reason for continued hospitalization: awaiting LTC placement The patient HCP is his step-daughter Alcides can be reached on Patient sister name is Dr. Nate Genao and her phone number is to be contacted for any updates. Routine labs today--CBC, BMP 07/03 unremarkable. Quality Stroke Does the patient have a stroke diagnosis?: No VTE Prior VTE?: No VTE Risk Level:: Medical - moderate - high VTE Device Contraindication: Treatment Not Indicated VTE Drug Contraindication: N/A - Med Ordered
[2024-07-07] MEDS: Enoxaparin Sodium 40 MG/0.4 ML SYRINGE SUBCUT (11:39)
[2024-07-07 15:25] VITALS: BP 150/74; PULSE 70; RESP 16; TEMP 36.7; O2SAT 97
--- NOTE | 2024-07-07 15:46 | MHC.CM.PN ---
REFERRALS UPDATED, AWAITING BED OFFER. [facility] ([facility] [phone]) UPDATED ON NEED TO GET [facility]. [facility] [facility]VIEW[facility], AWAITING DECISION.
[2024-07-07 23:20] VITALS: BP 148/71; PULSE 66; RESP 20; TEMP 36.3; O2SAT 98
[2024-07-08 07:18] VITALS: BP 177/84; PULSE 91; RESP 18; TEMP 36; O2SAT 96
[2024-07-08 07:48] VITALS: BP 146/77
--- NOTE | 2024-07-08 10:02 | P.PNIM_ITS ---
Subjective Subjective Date of Service: 07/08/24 Interval History: No issues repported, appear comfortable. Sitting by the window Physical Exam 2 Vital Signs: Vital Signs: Last Vital Signs Temp 96.8 F 07/08/24 07:18 Pulse 91 07/08/24 07:18 Resp 18 07/08/24 07:18 BP 146/77 H 07/08/24 07:48 Pulse Ox 96 07/08/24 07:18 O2 Del Method Room Air 07/08/24 07:18 O2 Flow Rate 2 03/28/24 07:24 BMI result Body Mass Index 19.3 Const: Other: General: Alert, but not oriented Resp: CTA bilateral CVS: S1,S2,RRR GI: +BS, NT, no distention Skin: No rash Neuro: motor grossly intact Psych: appropriate affect Objective Data Active Medications Acetaminophen (Acetaminophen 325 Mg Tablet) 650 mg PO Q6H PRN PRN Reason: Pain, Mild (Pain Scale 1-3), fever or headache Last Admin: 05/02/24 13:31 Dose: 650 mg Al Hydroxide/Mg Hydroxide (Magnesium Hydrox/Alum Hydrox 30 Ml Oral.Susp) 30 ml PO Q6H PRN PRN Reason: Constipation Benzonatate (Benzonatate 100 Mg Capsule) 100 mg PO TID PRN PRN Reason: Cough Calcium Carbonate (Calcium Carbonate 750 Mg Tab.Chew) 750 mg PO Q4H PRN PRN Reason: Heartburn Clonidine (Clonidine 0.1 Mg Patch.Tdwk) 0.1 mg TRANSDERMA Tu@0900 [facility]; Protocol Last Admin: 07/07/24 07:33 Dose: 0.1 mg Documented By: CELINE Enoxaparin Sodium (Enoxaparin Sodium 40 Mg/0.4 Ml Syringe) 40 mg SUBCUT Q24H [facility] Last Admin: 07/07/24 11:39 Dose: 40 mg Documented By: CELINE Loperamide HCl (Loperamide Hcl 2 Mg Capsule) 2 mg PO Q4H PRN PRN Reason: Diarrhea Last Admin: 04/27/24 15:22 Dose: 2 mg Documented By: JESSICA Magnesium Hydroxide (Milk Of Magnesia 30 Ml Oral.Susp) 30 ml PO DAILY PRN PRN Reason: Constipation Melatonin (Melatonin 3 Mg Tablet) 6 mg PO BEDTIME PRN PRN Reason: Insomnia Last Admin: 04/29/24 19:24 Dose: 6 mg Miconazole Nitrate (Miconazole Nitrate 2% Powder 85 Gm Bottle) 1 appl TOPICAL BID PRN; Protocol PRN Reason: yeast Nicotine Polacrilex (Nicotine Polacrilex 2 Mg Gum) 4 mg BUCCAL Q2H PRN PRN Reason: Nicotine Cravings Ondansetron HCl (Ondansetron Hcl 4 Mg/2 Ml Vial) 4 mg IVPUSH Q8H PRN PRN Reason: Nausea and Vomiting Last Admin: 03/02/24 18:44 Dose: 4 mg Documented By: SEN Ondansetron HCl (Ondansetron Odt 4 Mg Tab.Rapdis) 4 mg TRANSLINGU Q6H PRN PRN Reason: Nausea and Vomiting Last Admin: 04/08/24 19:57 Dose: 4 mg Documented By: GERARDO-ZADRNeville Trazodone HCl (Trazodone Hcl 25 Mg Halftab) 25 mg PO BEDTIME PRN PRN Reason: Insomnia Last Admin: 04/29/24 19:24 Dose: 25 mg Labs 07/03/24 07:58 07/03/24 07:58 Assessment and Plan (1) Cognitive and behavioral changes: Status: Acute Plan 83M PMH htn, unspecified dementia, admitted to [facility] 02/13/24 for FTT, not taking meds or food. Transferred to medicine 02/14/24. 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 Re-consult if any further concerns. DVT prophylaxis with Lovenox Full Code reason for continued hospitalization: awaiting LTC placement oob daily labs weekly The patient HCP is his step-daughter Alcides can be reached on Patient sister name is Dr. Nate Genao and her phone number is to be contacted for any updates. Routine labs today--CBC, BMP 07/03 unremarkable. Quality Stroke Does the patient have a stroke diagnosis?: No VTE Prior VTE?: No VTE Risk Level:: Medical - moderate - high VTE Device Contraindication: Treatment Not Indicated VTE Drug Contraindication: N/A - Med Ordered
[2024-07-08] MEDS: Enoxaparin Sodium 40 MG/0.4 ML SYRINGE SUBCUT (11:49)
[2024-07-08 14:56] VITALS: BP 138/65; PULSE 70; RESP 18; TEMP 37; O2SAT 96
--- NOTE | 2024-07-08 15:27 | MHC.CM.PN ---
EMR REVIEWED. PT REMAINS MEDICALLY CLEARED. REFERRALS UPDATED AND NO BED OFFERS AT THIS TIME. PVR LIAISON IN TO SEE PT AT BEDSIDE. CM WILL CONTINUE TO FOLLOW FOR BED OFFER/COMPLETION OF FINANCIALS FOR LTC PLACEMENT.
[2024-07-08 23:30] VITALS: BP 140/79; PULSE 74; RESP 18; TEMP 36; O2SAT 93
[2024-07-09 07:50] VITALS: BP 136/97; PULSE 72; RESP 18; TEMP 36.4; O2SAT 98
[2024-07-09] MEDS: Enoxaparin Sodium 40 MG/0.4 ML SYRINGE SUBCUT (11:33)
--- NOTE | 2024-07-09 14:03 | HO.PM.IMPN ---
Subjective Subjective Date of Service: 07/09/24 Interval History: Seen and examined this morning Sitting up in chair eating breakfast No overnight events Physical Exam Vital Signs: Vital Signs: Last Vital Signs Temp 97.5 F 07/09/24 07:50 Pulse 72 07/09/24 07:50 Resp 18 07/09/24 07:50 BP 136/97 H 07/09/24 07:50 Pulse Ox 98 07/09/24 07:50 O2 Del Method Room Air 07/09/24 07:50 O2 Flow Rate 2 03/28/24 07:24 BMI result Body Mass Index 19.3 Const: General: comfortable, no acute distress, alert and awake Nutritional Appearance: thin Orientation/consciousness: oriented to person Resp: Effort & Inspection: normal respiratory effort, no respiratory distress and no use of accessory muscles GI: Inspection: No distended Palpation (GI): nontender Neuro: Other: grossly nonfocal General: oriented to person Extrem: General: Yes no pedal edema Objective Data Active Medications Acetaminophen (Acetaminophen 325 Mg Tablet) 650 mg PO Q6H PRN PRN Reason: Pain, Mild (Pain Scale 1-3), fever or headache Last Admin: 05/02/24 13:31 Dose: 650 mg Al Hydroxide/Mg Hydroxide (Magnesium Hydrox/Alum Hydrox 30 Ml Oral.Susp) 30 ml PO Q6H PRN PRN Reason: Constipation Benzonatate (Benzonatate 100 Mg Capsule) 100 mg PO TID PRN PRN Reason: Cough Calcium Carbonate (Calcium Carbonate 750 Mg Tab.Chew) 750 mg PO Q4H PRN PRN Reason: Heartburn Clonidine (Clonidine 0.1 Mg Patch.Tdwk) 0.1 mg TRANSDERMA Tu@0900 [facility]; Protocol Last Admin: 07/07/24 07:33 Dose: 0.1 mg Documented By: CELINE Enoxaparin Sodium (Enoxaparin Sodium 40 Mg/0.4 Ml Syringe) 40 mg SUBCUT Q24H [facility] Last Admin: 07/09/24 11:33 Dose: 40 mg Documented By: FIONA Loperamide HCl (Loperamide Hcl 2 Mg Capsule) 2 mg PO Q4H PRN PRN Reason: Diarrhea Last Admin: 04/27/24 15:22 Dose: 2 mg Documented By: JESSICA Magnesium Hydroxide (Milk Of Magnesia 30 Ml Oral.Susp) 30 ml PO DAILY PRN PRN Reason: Constipation Melatonin (Melatonin 3 Mg Tablet) 6 mg PO BEDTIME PRN PRN Reason: Insomnia Last Admin: 04/29/24 19:24 Dose: 6 mg Miconazole Nitrate (Miconazole Nitrate 2% Powder 85 Gm Bottle) 1 appl TOPICAL BID PRN; Protocol PRN Reason: yeast Nicotine Polacrilex (Nicotine Polacrilex 2 Mg Gum) 4 mg BUCCAL Q2H PRN PRN Reason: Nicotine Cravings Ondansetron HCl (Ondansetron Hcl 4 Mg/2 Ml Vial) 4 mg IVPUSH Q8H PRN PRN Reason: Nausea and Vomiting Last Admin: 03/02/24 18:44 Dose: 4 mg Documented By: SEN Ondansetron HCl (Ondansetron Odt 4 Mg Tab.Rapdis) 4 mg TRANSLINGU Q6H PRN PRN Reason: Nausea and Vomiting Last Admin: 04/08/24 19:57 Dose: 4 mg Documented By: GERARDO-ZADRNeville Trazodone HCl (Trazodone Hcl 25 Mg Halftab) 25 mg PO BEDTIME PRN PRN Reason: Insomnia Last Admin: 04/29/24 19:24 Dose: 25 mg Labs 07/03/24 07:58 07/03/24 07:58 Assessment and Plan (1) Cognitive and behavioral changes: Status: Acute Plan 83M PMH htn, unspecified dementia, admitted to [facility] 02/13/24 for FTT, not taking meds or food. Transferred to medicine 02/14/24. 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 Re-consult if any further concerns. DVT prophylaxis with Lovenox Full Code reason for continued hospitalization: awaiting LTC placement oob daily labs weekly The patient HCP is his step-daughter Alcides can be reached on Patient sister name is Dr. Nate Genao and her phone number is to be contacted for any updates. Quality Stroke Does the patient have a stroke diagnosis?: No VTE Prior VTE?: No VTE Risk Level:: Medical - moderate - high VTE Device Contraindication: Treatment Not Indicated VTE Drug Contraindication: N/A - Med Ordered
[2024-07-09 15:40] VITALS: BP 131/62; PULSE 62; RESP 18; TEMP 36.1; O2SAT 97
--- NOTE | 2024-07-09 15:57 | PC.NURSE ---
Pt calm and cooperative with care, tolerated ADLs with the assist of 1 today.
[2024-07-09 23:32] VITALS: BP 131/63; PULSE 71; RESP 20; TEMP 36.4; O2SAT 96
[2024-07-09] MEDS: OLANZapine 10 MG VIAL 5 MG IM (23:32)
[2024-07-09 23:47] VITALS: BP 102/55; PULSE 61; RESP 18; TEMP 36.5; O2SAT 95
[2024-07-10 00:02] VITALS: BP 98/59; PULSE 57; RESP 18; TEMP 36.6; O2SAT 96
[2024-07-10 00:17] VITALS: BP 119/66; PULSE 62; RESP 18; TEMP 36.4; O2SAT 94
[2024-07-10 00:32] VITALS: BP 121/65; PULSE 60; RESP 18; TEMP 36.4; O2SAT 96
--- NOTE | 2024-07-10 02:49 | PC.NURSE ---
Addendum entered by Roxy Guerra RN 07/10/24 05:07: 04:00 hour. Patient's in-room VMT camera was alarming. Radio Sportscaster and ancillary staff responded to the bedside. The pt was found to be incontinent of bowel and bladder. Incontinence care was provided though required three staff members to perform and attempt to redirect the patient, as the pt was attempting to hit, bite staff and his own hands/arms, and continued attempting to sit up/exit the bed despite being a grayson assist OOB to the chair. Patient continues to be intermittently impulsive since then despite comfort efforts (warm blanket provided, pt ensured dry, repositioned) and allowing the patient to rest with lights lowered/tv off and delirium precautions enacted. MD notified as well as nursing supervisor steel division. Constant an/ssn 2 4 operator considered though unable to accomodate at this time. Continues with safety measures. Plan of care ongoing. Original Note: Assumed care of this patient at 19:00. Pt is seen on s3. Social admit patient, continues awaiting placement. In the evening the patient was alert, confused/disoriented to place, time, and situation, easily agitated during care though this resolved and pt was calm when allowed to rest after staff exited the room. Later this patient became agitated, yelling out and attention seeking, and remained resistive and agitated with care, which did not resolve when staff exited the room and allowed the patient to rest. Vitals obtained, stable. Toileting needs were met as pt was just incontinent of large volume urine with care provided, patient repositioned and given warm blankets. Radio Sportscaster attempted to medicate patient with po medications crushed in pudding though the the pt spit this out at sheet writer and began yelling again and waving his fist. Covering Dr. Menjivar was notified. orders for 1x zyprexa, given with +effect. Patient remains calm, resting in bed on rounds. Breathing remains even and unlabored breathing without distress on room air. Bed alarm on and safety measures including in-room camera are in place. Plan of care continues. Please see shift assessments, tasks, and MAR for full details.
[2024-07-10 07:28] VITALS: BP 148/77; PULSE 65; RESP 14; TEMP 36.2; O2SAT 96
[2024-07-10] MEDS: risperiDONE Oral Sol 1 MG/ML SOLUTION 0.5 MG PO (09:03)
[2024-07-10 09:06] LABS: Anion Gap 8 (12-20); Blood Urea Nitrogen 13 mg/dL (9-16); Calcium 9.1 mg/dL (8.4-10.2); Carbon Dioxide 25 mmol/L (22-29); Chloride 111 mmol/L (96-108); Creatinine Clr Calc Pharmacy 84.9; Estimated Glomerular Filt Rate > 60; Glucose Random 83 mg/dL (60-115); Potassium 4.1 mmol/L (3.3-5.1); Sodium 140 mmol/L (135-145)
[2024-07-10] MEDS: Enoxaparin Sodium 40 MG/0.4 ML SYRINGE SUBCUT (10:33)
--- NOTE | 2024-07-10 14:23 | P.PNIM_ITS ---
Subjective Subjective Date of Service: 07/10/24 Interval History: seen and examined this morning follow up for placement agitated overnight, requiring medication calm and cooperative this morning, sitting up eating breakfast Physical Exam 2 Vital Signs: Vital Signs: Last Vital Signs Temp 97.2 F 07/10/24 07:28 Pulse 65 07/10/24 07:28 Resp 14 07/10/24 07:28 BP 148/77 H 07/10/24 07:28 Pulse Ox 96 07/10/24 07:28 O2 Del Method Room Air 07/10/24 07:28 O2 Flow Rate 2 03/28/24 07:24 BMI result Body Mass Index 19.3 Const: General: comfortable, no acute distress, alert and awake Nutritional Appearance: thin Orientation/consciousness: oriented to person Resp: Effort & Inspection: normal respiratory effort, no respiratory distress and no use of accessory muscles GI: Inspection: No distended Palpation (GI): nontender Neuro: Other: grossly nonfocal General: oriented to person Extrem: General: Yes no pedal edema Objective Data Active Medications Acetaminophen (Acetaminophen 325 Mg Tablet) 650 mg PO Q6H PRN PRN Reason: Pain, Mild (Pain Scale 1-3), fever or headache Last Admin: 05/02/24 13:31 Dose: 650 mg Al Hydroxide/Mg Hydroxide (Magnesium Hydrox/Alum Hydrox 30 Ml Oral.Susp) 30 ml PO Q6H PRN PRN Reason: Constipation Benzonatate (Benzonatate 100 Mg Capsule) 100 mg PO TID PRN PRN Reason: Cough Calcium Carbonate (Calcium Carbonate 750 Mg Tab.Chew) 750 mg PO Q4H PRN PRN Reason: Heartburn Clonidine (Clonidine 0.1 Mg Patch.Tdwk) 0.1 mg TRANSDERMA Tu@0900 [facility]; Protocol Last Admin: 07/07/24 07:33 Dose: 0.1 mg Documented By: CELINE Enoxaparin Sodium (Enoxaparin Sodium 40 Mg/0.4 Ml Syringe) 40 mg SUBCUT Q24H [facility] Last Admin: 07/10/24 10:33 Dose: 40 mg Documented By: THOM Loperamide HCl (Loperamide Hcl 2 Mg Capsule) 2 mg PO Q4H PRN PRN Reason: Diarrhea Last Admin: 04/27/24 15:22 Dose: 2 mg Documented By: JESSICA Magnesium Hydroxide (Milk Of Magnesia 30 Ml Oral.Susp) 30 ml PO DAILY PRN PRN Reason: Constipation Melatonin (Melatonin 3 Mg Tablet) 6 mg PO BEDTIME PRN PRN Reason: Insomnia Last Admin: 04/29/24 19:24 Dose: 6 mg Miconazole Nitrate (Miconazole Nitrate 2% Powder 85 Gm Bottle) 1 appl TOPICAL BID PRN; Protocol PRN Reason: yeast Nicotine Polacrilex (Nicotine Polacrilex 2 Mg Gum) 4 mg BUCCAL Q2H PRN PRN Reason: Nicotine Cravings Ondansetron HCl (Ondansetron Hcl 4 Mg/2 Ml Vial) 4 mg IVPUSH Q8H PRN PRN Reason: Nausea and Vomiting Last Admin: 03/02/24 18:44 Dose: 4 mg Documented By: SEN Ondansetron HCl (Ondansetron Odt 4 Mg Tab.Rapdis) 4 mg TRANSLINGU Q6H PRN PRN Reason: Nausea and Vomiting Last Admin: 04/08/24 19:57 Dose: 4 mg Documented By: JENSEN Risperidone (Risperidone Oral Peg 1 Mg/Ml Solution) 0.5 mg PO BID [facility] Last Admin: 07/10/24 09:03 Dose: 0.5 mg Documented By: THOM Trazodone HCl (Trazodone Hcl 25 Mg Halftab) 25 mg PO BEDTIME PRN PRN Reason: Insomnia Last Admin: 04/29/24 19:24 Dose: 25 mg Labs 07/03/24 07:58 07/10/24 08:14 Labs: Laboratory Results - last 24 hr 07/10/24 08:14 Anion Gap 8 L Estim Creat Clear Calc 84.9 Estimated GFR > 60 Random Glucose 83 Calcium 9.1 Assessment and Plan (1) Cognitive and behavioral changes: Status: Acute Plan This is an 83M with a h/o htn, unspecified dementia, admitted to [facility] 02/13/24 for FTT, not taking meds or food. Transferred to medicine 02/14/24. 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 CJD ruled out EEG showed general slowing but no seizure disorder Dysphagia INSPECTOR ELEVATORS rec NDD3 solids, thin liquids Bilateral conjunctivitis completed treatment, resolved Hypertension-controlled Transdermal clonidine Mood disorder psych eval previously on risperidone 0.5mg PO BID; will restart due to increasing frequency of agitation Re-consult if any further concerns. DVT prophylaxis with Lovenox Full Code reason for continued hospitalization: awaiting LTC placement oob daily labs weekly The patient HCP is his step-daughter Alcides can be reached on Patient sister name is Dr. Nate Genao and her phone number is to be contacted for any updates. Quality Stroke Does the patient have a stroke diagnosis?: No VTE Prior VTE?: No VTE Risk Level:: Medical - moderate - high VTE Device Contraindication: Treatment Not Indicated VTE Drug Contraindication: N/A - Med Ordered
--- NOTE | 2024-07-10 14:48 | MHC.CM.PN ---
EMR REVIEWED. PT REMAINS MEDICALLY CLEARED. AWAITING [facility] COMPLETION/BED OFFER FOR LTC PLACEMENT.
[2024-07-10 15:33] VITALS: BP 132/75; PULSE 86; RESP 18; TEMP 36.6; O2SAT 97
[2024-07-10] MEDS: Acetaminophen 325 MG TABLET 650 MG PO (16:50)
--- NOTE | 2024-07-10 17:59 | PC.NURSE ---
Pt restless, continually trying to get OOB. Unable to answer questions appropriately. Attempted to toilet without success. Leti Rivera notified, no new orders at this time.Po tylenol given with good effect, pt appears less restless
--- NOTE | 2024-07-10 22:55 | PC.NURSE ---
2255- Risperdal medication ordered for 2100, noted patient in bed and resting quietly at that time, monitored one hour before due and one hour after with no agitation or restlessness. will monitor closely and administer if needed.
[2024-07-11] VITALS (11 sets, daily range): BP systolic 114–184; BP diastolic 65–88; PULSE 59–89; RESP 16–20; TEMP 36–36.5; O2SAT 92–99
[2024-07-11] MEDS: risperiDONE Oral Sol 1 MG/ML SOLUTION 0.5 MG PO (07:40)
[2024-07-11] MEDS: Enoxaparin Sodium 40 MG/0.4 ML SYRINGE SUBCUT (12:43)
[2024-07-11] MEDS: Acetaminophen 325 MG TABLET 650 MG PO (12:57)
--- NOTE | 2024-07-11 15:33 | P.PNIM_ITS ---
Subjective Subjective Date of Service: 07/11/24 Interval History: Seen and examined this morning Follow-up for placement No overnight events Patient sitting up in bed, appears comfortable, calm and cooperative Physical Exam 2 Vital Signs: Vital Signs: Last Vital Signs Temp 97.7 F 07/11/24 15:04 Pulse 87 07/11/24 15:04 Resp 18 07/11/24 15:04 BP 114/68 07/11/24 15:04 Pulse Ox 97 07/11/24 15:04 O2 Del Method Room Air 07/11/24 15:04 O2 Flow Rate 2 03/28/24 07:24 BMI result Body Mass Index 19.3 Const: General: comfortable, no acute distress, alert and awake Nutritional Appearance: thin Orientation/consciousness: oriented to person Resp: Effort & Inspection: normal respiratory effort, no respiratory distress and no use of accessory muscles GI: Inspection: No distended Palpation (GI): nontender Neuro: Other: grossly nonfocal General: oriented to person Extrem: General: Yes no pedal edema Objective Data Active Medications Acetaminophen (Acetaminophen 325 Mg Tablet) 650 mg PO Q6H PRN PRN Reason: Pain, Mild (Pain Scale 1-3), fever or headache Last Admin: 07/11/24 12:57 Dose: 650 mg Documented By: CELINE Al Hydroxide/Mg Hydroxide (Magnesium Hydrox/Alum Hydrox 30 Ml Oral.Susp) 30 ml PO Q6H PRN PRN Reason: Constipation Benzonatate (Benzonatate 100 Mg Capsule) 100 mg PO TID PRN PRN Reason: Cough Calcium Carbonate (Calcium Carbonate 750 Mg Tab.Chew) 750 mg PO Q4H PRN PRN Reason: Heartburn Clonidine (Clonidine 0.1 Mg Patch.Tdwk) 0.1 mg TRANSDERMA Tu@0900 [facility]; Protocol Last Admin: 07/07/24 07:33 Dose: 0.1 mg Documented By: CELINE Enoxaparin Sodium (Enoxaparin Sodium 40 Mg/0.4 Ml Syringe) 40 mg SUBCUT Q24H [facility] Last Admin: 07/11/24 12:43 Dose: 40 mg Documented By: CELINE Loperamide HCl (Loperamide Hcl 2 Mg Capsule) 2 mg PO Q4H PRN PRN Reason: Diarrhea Last Admin: 04/27/24 15:22 Dose: 2 mg Documented By: JESSICA Magnesium Hydroxide (Milk Of Magnesia 30 Ml Oral.Susp) 30 ml PO DAILY PRN PRN Reason: Constipation Melatonin (Melatonin 3 Mg Tablet) 6 mg PO BEDTIME PRN PRN Reason: Insomnia Last Admin: 04/29/24 19:24 Dose: 6 mg Miconazole Nitrate (Miconazole Nitrate 2% Powder 85 Gm Bottle) 1 appl TOPICAL BID PRN; Protocol PRN Reason: yeast Nicotine Polacrilex (Nicotine Polacrilex 2 Mg Gum) 4 mg BUCCAL Q2H PRN PRN Reason: Nicotine Cravings Ondansetron HCl (Ondansetron Hcl 4 Mg/2 Ml Vial) 4 mg IVPUSH Q8H PRN PRN Reason: Nausea and Vomiting Last Admin: 03/02/24 18:44 Dose: 4 mg Documented By: SEN Ondansetron HCl (Ondansetron Odt 4 Mg Tab.Rapdis) 4 mg TRANSLINGU Q6H PRN PRN Reason: Nausea and Vomiting Last Admin: 04/08/24 19:57 Dose: 4 mg Documented By: JENSEN Risperidone (Risperidone Oral Peg 1 Mg/Ml Solution) 0.5 mg PO BID [facility] Last Admin: 07/11/24 07:40 Dose: 0.5 mg Documented By: CELINE Trazodone HCl (Trazodone Hcl 25 Mg Halftab) 25 mg PO BEDTIME PRN PRN Reason: Insomnia Last Admin: 04/29/24 19:24 Dose: 25 mg Labs 07/03/24 07:58 07/10/24 08:14 Assessment and Plan (1) Cognitive and behavioral changes: Status: Acute Plan This is an 83M with a h/o htn, unspecified dementia, admitted to [facility] 02/13/24 for FTT, not taking meds or food. Transferred to medicine 02/14/24. 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 DVT prophylaxis with Lovenox Full Code reason for continued hospitalization: awaiting LTC placement oob daily labs weekly The patient HCP is his step-daughter Alcides can be reached on Patient sister name is Dr. Nate Genao and her phone number is to be contacted for any updates. Quality Stroke Does the patient have a stroke diagnosis?: No VTE Prior VTE?: No VTE Risk Level:: Medical - moderate - high VTE Device Contraindication: Treatment Not Indicated VTE Drug Contraindication: N/A - Med Ordered
--- NOTE | 2024-07-11 18:26 | PC.NURSE ---
Pt with intermittent periods if agitation and impulsiveness able to redirect.
--- NOTE | 2024-07-11 20:05 | PC.NURSE ---
Assumed care of this patient at 19:00. Patient very restless this evening, making frequent attempts to get OOB this evening despite redirection and reassurance attempts, agitated with staff care. Route Vending Machine Servicer attempted to give po scheduled risperdal which patient spit out. VSS. Breathing is even and unlabored without distress. Covering Dr. Jones notified. orders for IM zyprexa.
--- NOTE | 2024-07-11 20:19 | HO.BHRESTREX ---
Behavioral Restraint Exam Behavioral Health Restraint Exam Type of Restraint: Medication Reason for Restraint: Substantial Risk Medical Concerns for Restraint: No medical concerns, pt w/o acute inj / no noted resp/VS abnormalities Behavioral Assessment / Plan: No further behavioral concerns, continue current plan.
[2024-07-11] MEDS: OLANZapine 10 MG VIAL 5 MG IM (20:22)
[2024-07-12 02:40] VITALS: RESP 18
[2024-07-12 05:15] VITALS: BP 155/72; PULSE 71; RESP 16; TEMP 36.4; O2SAT 96
[2024-07-12 07:43] VITALS: BP 145/88; PULSE 73; RESP 16; TEMP 36.6; O2SAT 98
--- NOTE | 2024-07-12 09:15 | PC.NURSE ---
Attempted to give pt PO dose of risperidone this morning and pt spit out dose .
[2024-07-12 12:40] LABS: Hematocrit 43.8 % (42.0-52.0); Hemoglobin 15.2 g/dl (14.0-18.0); Mean Corpuscular HGB Conc 34.7 g/dl (31.0-36.0); Mean Corpuscular Hemoglobin 32.2 pg (27.0-33.0); Mean Corpuscular Volume 92.8 fL (80.0-98.0); Mean Platelet Volume 9.9 fL (9.4-12.4); Platelet Count 229 X10*3/uL (160-400); Red Blood Count 4.72 X10*6/uL (4.60-5.80); Red Cell Distribution Width 13.6 % (11.0-16.0); White Blood Count 6.3 X10*3/uL (4.8-10.8)
[2024-07-12 12:56] LABS: Anion Gap 12 (12-20); Blood Urea Nitrogen 16 mg/dL (9-16); Calcium 9.1 mg/dL (8.4-10.2); Carbon Dioxide 24 mmol/L (22-29); Chloride 109 mmol/L (96-108); Creatinine Clr Calc Pharmacy 84.9; Estimated Glomerular Filt Rate > 60; Glucose Random 93 mg/dL (60-115); Potassium 4.2 mmol/L (3.3-5.1); Sodium 141 mmol/L (135-145)
[2024-07-12] MEDS: Enoxaparin Sodium 40 MG/0.4 ML SYRINGE SUBCUT (13:07)
[2024-07-12 15:08] VITALS: BP 135/77; PULSE 100; RESP 16; TEMP 36.8; O2SAT 95
--- NOTE | 2024-07-12 15:50 | HO.PM.IMPN ---
Subjective Subjective Date of Service: 07/12/24 Interval History: Seen and examined this morning Follow-up for placement Received IM Zyprexa overnight Patient awake, alert unable to obtain full ROS due to underlying advanced dementia Physical Exam Vital Signs: Vital Signs: Last Vital Signs Temp 98.3 F 07/12/24 15:08 Pulse 100 07/12/24 15:08 Resp 16 07/12/24 15:08 BP 135/77 07/12/24 15:08 Pulse Ox 95 07/12/24 15:08 O2 Del Method Room Air 07/12/24 15:08 O2 Flow Rate 2 03/28/24 07:24 BMI result Body Mass Index 19.3 Const: General: comfortable, no acute distress, alert and awake Nutritional Appearance: thin Orientation/consciousness: oriented to person Resp: Effort & Inspection: normal respiratory effort, no respiratory distress and no use of accessory muscles GI: Inspection: No distended Palpation (GI): nontender Neuro: Other: grossly nonfocal General: oriented to person Extrem: General: Yes no pedal edema Objective Data Active Medications Acetaminophen (Acetaminophen 325 Mg Tablet) 650 mg PO Q6H PRN PRN Reason: Pain, Mild (Pain Scale 1-3), fever or headache Last Admin: 07/11/24 12:57 Dose: 650 mg Documented By: CELINE Al Hydroxide/Mg Hydroxide (Magnesium Hydrox/Alum Hydrox 30 Ml Oral.Susp) 30 ml PO Q6H PRN PRN Reason: Constipation Benzonatate (Benzonatate 100 Mg Capsule) 100 mg PO TID PRN PRN Reason: Cough Calcium Carbonate (Calcium Carbonate 750 Mg Tab.Chew) 750 mg PO Q4H PRN PRN Reason: Heartburn Clonidine (Clonidine 0.1 Mg Patch.Tdwk) 0.1 mg TRANSDERMA Tu@0900 [facility]; Protocol Last Admin: 07/07/24 07:33 Dose: 0.1 mg Documented By: CELINE Enoxaparin Sodium (Enoxaparin Sodium 40 Mg/0.4 Ml Syringe) 40 mg SUBCUT Q24H [facility] Last Admin: 07/12/24 13:07 Dose: 40 mg Documented By: CELINE Loperamide HCl (Loperamide Hcl 2 Mg Capsule) 2 mg PO Q4H PRN PRN Reason: Diarrhea Last Admin: 04/27/24 15:22 Dose: 2 mg Documented By: JESSICA Magnesium Hydroxide (Milk Of Magnesia 30 Ml Oral.Susp) 30 ml PO DAILY PRN PRN Reason: Constipation Melatonin (Melatonin 3 Mg Tablet) 6 mg PO BEDTIME PRN PRN Reason: Insomnia Last Admin: 04/29/24 19:24 Dose: 6 mg Miconazole Nitrate (Miconazole Nitrate 2% Powder 85 Gm Bottle) 1 appl TOPICAL BID PRN; Protocol PRN Reason: yeast Nicotine Polacrilex (Nicotine Polacrilex 2 Mg Gum) 4 mg BUCCAL Q2H PRN PRN Reason: Nicotine Cravings Ondansetron HCl (Ondansetron Hcl 4 Mg/2 Ml Vial) 4 mg IVPUSH Q8H PRN PRN Reason: Nausea and Vomiting Last Admin: 03/02/24 18:44 Dose: 4 mg Documented By: SEN Ondansetron HCl (Ondansetron Odt 4 Mg Tab.Rapdis) 4 mg TRANSLINGU Q6H PRN PRN Reason: Nausea and Vomiting Last Admin: 04/08/24 19:57 Dose: 4 mg Documented By: JENSEN Risperidone (Risperidone Oral Peg 1 Mg/Ml Solution) 0.5 mg PO BID JUAN PABLO Last Admin: 07/12/24 09:26 Dose: Not Given Documented By: CELINE Non-Admin Reason: pt uncooperative spit out Trazodone HCl (Trazodone Hcl 25 Mg Halftab) 25 mg PO BEDTIME PRN PRN Reason: Insomnia Last Admin: 04/29/24 19:24 Dose: 25 mg Labs 07/12/24 12:17 07/12/24 12:17 Labs: Laboratory Results - last 24 hr 07/12/24 12:17 MCV 92.8 MCH 32.2 MCHC 34.7 RDW 13.6 Plt Count 229 MPV 9.9 Absolute Nucleated RBC 0.000 Nucleated RBC % (auto) 0.0 Anion Gap 12 Estim Creat Clear Calc 84.9 Estimated GFR > 60 Random Glucose 93 Calcium 9.1 Assessment and Plan (1) Cognitive and behavioral changes: Status: Acute Plan This is an 83M with a h/o htn, unspecified dementia, admitted to the medical center 02/13/24 for FTT, not taking meds or food. Transferred to medicine 02/14/24. 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 DVT prophylaxis with Lovenox Full Code reason for continued hospitalization: awaiting LTC placement oob daily labs weekly The patient HCP is his step-daughter Alcides can be reached on Patient sister name is Dr. Nate Genao and her phone number is to be contacted for any updates. Quality Stroke Does the patient have a stroke diagnosis?: No VTE Prior VTE?: No VTE Risk Level:: Medical - moderate - high VTE Device Contraindication: Treatment Not Indicated VTE Drug Contraindication: N/A - Med Ordered
[2024-07-12] MEDS: risperiDONE Oral Sol 1 MG/ML SOLUTION 0.5 MG PO (20:17)
[2024-07-13] VITALS: BP 123/59; PULSE 83; RESP 18; TEMP 36.2; O2SAT 96
[2024-07-13 07:06] VITALS: BMI 18.7
[2024-07-13 08:00] VITALS: BP 143/79; PULSE 66; RESP 16; TEMP 37.2; O2SAT 96
[2024-07-13] MEDS: risperiDONE Oral Sol 1 MG/ML SOLUTION 0.5 MG PO ×2 (08:22→20:29)
--- NOTE | 2024-07-13 09:32 | P.PNIM_ITS ---
Subjective Subjective Date of Service: 07/13/24 Interval History: Seen and examined this morning Follow-up for placement Patient awake, alert unable to obtain full ROS due to underlying advanced dementia Physical Exam 2 Vital Signs: Vital Signs: Last Vital Signs Temp 98.9 F 07/13/24 08:00 Pulse 66 07/13/24 08:00 Resp 16 07/13/24 08:00 BP 143/79 H 07/13/24 08:00 Pulse Ox 96 07/13/24 08:00 O2 Del Method Room Air 07/13/24 08:00 O2 Flow Rate 2 03/28/24 07:24 BMI result Body Mass Index 18.7 Appearing in no acute distress lung sounds are clear to auscultation heart regular rate rhythm, clear S1, S2 positive bowel sounds, abdomen is soft, nontender neuro patient is alert, confused Objective Data Active Medications Acetaminophen (Acetaminophen 325 Mg Tablet) 650 mg PO Q6H PRN PRN Reason: Pain, Mild (Pain Scale 1-3), fever or headache Last Admin: 07/11/24 12:57 Dose: 650 mg Documented By: CELINE Al Hydroxide/Mg Hydroxide (Magnesium Hydrox/Alum Hydrox 30 Ml Oral.Susp) 30 ml PO Q6H PRN PRN Reason: Constipation Benzonatate (Benzonatate 100 Mg Capsule) 100 mg PO TID PRN PRN Reason: Cough Calcium Carbonate (Calcium Carbonate 750 Mg Tab.Chew) 750 mg PO Q4H PRN PRN Reason: Heartburn Clonidine (Clonidine 0.1 Mg Patch.Tdwk) 0.1 mg TRANSDERMA Tu@0900 [facility]; Protocol Last Admin: 07/07/24 07:33 Dose: 0.1 mg Documented By: CELINE Enoxaparin Sodium (Enoxaparin Sodium 40 Mg/0.4 Ml Syringe) 40 mg SUBCUT Q24H [facility] Last Admin: 07/12/24 13:07 Dose: 40 mg Documented By: CELINE Loperamide HCl (Loperamide Hcl 2 Mg Capsule) 2 mg PO Q4H PRN PRN Reason: Diarrhea Last Admin: 04/27/24 15:22 Dose: 2 mg Documented By: JESSICA Magnesium Hydroxide (Milk Of Magnesia 30 Ml Oral.Susp) 30 ml PO DAILY PRN PRN Reason: Constipation Melatonin (Melatonin 3 Mg Tablet) 6 mg PO BEDTIME PRN PRN Reason: Insomnia Last Admin: 04/29/24 19:24 Dose: 6 mg Miconazole Nitrate (Miconazole Nitrate 2% Powder 85 Gm Bottle) 1 appl TOPICAL BID PRN; Protocol PRN Reason: yeast Nicotine Polacrilex (Nicotine Polacrilex 2 Mg Gum) 4 mg BUCCAL Q2H PRN PRN Reason: Nicotine Cravings Ondansetron HCl (Ondansetron Hcl 4 Mg/2 Ml Vial) 4 mg IVPUSH Q8H PRN PRN Reason: Nausea and Vomiting Last Admin: 03/02/24 18:44 Dose: 4 mg Documented By: SEN Ondansetron HCl (Ondansetron Odt 4 Mg Tab.Rapdis) 4 mg TRANSLINGU Q6H PRN PRN Reason: Nausea and Vomiting Last Admin: 04/08/24 19:57 Dose: 4 mg Documented By: GERARDO-ZADRNeville Risperidone (Risperidone Oral Peg 1 Mg/Ml Solution) 0.5 mg PO BID JUAN PABLO Last Admin: 07/13/24 08:22 Dose: 0.5 mg Documented By: FIONA Trazodone HCl (Trazodone Hcl 25 Mg Halftab) 25 mg PO BEDTIME PRN PRN Reason: Insomnia Last Admin: 04/29/24 19:24 Dose: 25 mg Labs 07/12/24 12:17 07/12/24 12:17 Labs: Laboratory Results - last 24 hr 07/12/24 12:17 MCV 92.8 MCH 32.2 MCHC 34.7 RDW 13.6 Plt Count 229 MPV 9.9 Absolute Nucleated RBC 0.000 Nucleated RBC % (auto) 0.0 Anion Gap 12 Estim Creat Clear Calc 84.9 Estimated GFR > 60 Random Glucose 93 Calcium 9.1 Assessment and Plan (1) Cognitive and behavioral changes: Status: Acute Plan 83M with a h/o htn, unspecified dementia, [facility], not taking meds or food. Transferred to medicine 02/14/24. 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 CJD ruled out EEG showed general slowing but no seizure disorder Dysphagia RESEARCH MANAGER rec NDD3 solids, thin liquids Bilateral conjunctivitis completed treatment, resolved Hypertension-controlled Transdermal clonidine Mood disorder s/p psych eval risperidone 0.5mg PO BID Re-consult if any further concerns. DVT prophylaxis with Lovenox Full Code reason for continued hospitalization: awaiting LTC placement oob daily labs weekly The patient HCP is his step-daughter Alcides can be reached on Patient sister name is Dr. Nate Genao and her phone number is to be contacted for any updates. Quality Stroke Does the patient have a stroke diagnosis?: No VTE Prior VTE?: No VTE Risk Level:: Medical - moderate - high VTE Device Contraindication: Treatment Not Indicated VTE Drug Contraindication: N/A - Med Ordered
--- NOTE | 2024-07-13 10:44 | MHC.CLN ---
F/U DIET=REGULAR, CHOPPED. CONTINUE SUPPLEMENTS ENSURE TID (1050 KCALS, 60 G PROTEIN). CONTINUES WITH VARIABLE INTAKE, 25-100%. MAGIC CUP DISCONTINUED PATIENT MAY RECEIVE ICE CREAM AND PUDDING DESIRED. CONTINUE CURRENT DIET AND SUPPLEMENT AND ENCOURAGE PO INTAKE ABLE. RD TO FOLLOW UP WEEKLY. PATIENT AWAITING LTC PLACEMENT.
--- NOTE | 2024-07-13 10:49 | MHC.CM.PN ---
Patient continues witht he need or LTC placement. Amirah psychological operations specialist will see pt for med management and need for anti-psychotics. If antipsychotics are needed/appropriate CM will persue Deandre in addition to guardianship/conseratorship.
--- NOTE | 2024-07-13 11:00 | MHC.CLN ---
F/U DIET=REGULAR, CHOPPED. CONTINUE SUPPLEMENT MAGIC CUP TID (870 KCALS, 27 G PROTEIN). CONTINUES WITH VARIABLE INTAKE, 25-100%. ENSURE TID DISCONTINUED PATIENT NOT ACCEPTING. DOES NOT CONSISTENTLY ACCEPT MAGIC CUP BUT CONTINUE. CONTINUE CURRENT DIET AND SUPPLEMENT AND ENCOURAGE PO INTAKE ABLE. RD TO FOLLOW UP WEEKLY. PATIENT AWAITING LTC PLACEMENT.
[2024-07-13] MEDS: Enoxaparin Sodium 40 MG/0.4 ML SYRINGE SUBCUT (11:33)
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
[2024-07-13 15:06] VITALS: BP 133/66; PULSE 77; RESP 18; TEMP 36.5; O2SAT 97
--- NOTE | 2024-07-13 18:35 | PC.NURSE ---
Pt calm and cooperative with care today. 1 Assist for ADLs.
[2024-07-13] MEDS: Mirtazapine 15 MG TABLET PO (20:29)
[2024-07-13 22:52] VITALS: BP 134/64; PULSE 74; RESP 18; TEMP 36.4; O2SAT 97
[2024-07-14 07:38] VITALS: BP 150/72; PULSE 71; RESP 18; TEMP 36.6; O2SAT 95
[2024-07-14] MEDS: cloNIDine 0.1 MG PATCH.TDWK TRANSDERMA (07:55)
[2024-07-14] MEDS: risperiDONE Oral Sol 1 MG/ML SOLUTION 0.5 MG PO (07:55)
--- NOTE | 2024-07-14 08:27 | P.PNIM_ITS ---
Subjective Subjective Date of Service: 07/14/24 Interval History: Seen and examined this morning Follow-up for placement sitting up in chair Patient awake, alert unable to obtain full ROS due to underlying advanced dementia Physical Exam 2 Vital Signs: Vital Signs: Last Vital Signs Temp 97.9 F 07/14/24 07:38 Pulse 71 07/14/24 07:38 Resp 18 07/14/24 07:38 BP 150/72 H 07/14/24 07:38 Pulse Ox 95 07/14/24 07:38 O2 Del Method Room Air 07/14/24 07:38 O2 Flow Rate 2 03/28/24 07:24 BMI result Body Mass Index 18.7 Appearing in no acute distress lung sounds are clear to auscultation heart regular rate rhythm positive bowel sounds, abdomen is soft neuro patient is alert, confused Objective Data Active Medications Acetaminophen (Acetaminophen 325 Mg Tablet) 650 mg PO Q6H PRN PRN Reason: Pain, Mild (Pain Scale 1-3), fever or headache Last Admin: 07/11/24 12:57 Dose: 650 mg Documented By: CELINE Al Hydroxide/Mg Hydroxide (Magnesium Hydrox/Alum Hydrox 30 Ml Oral.Susp) 30 ml PO Q6H PRN PRN Reason: Constipation Benzonatate (Benzonatate 100 Mg Capsule) 100 mg PO TID PRN PRN Reason: Cough Calcium Carbonate (Calcium Carbonate 750 Mg Tab.Chew) 750 mg PO Q4H PRN PRN Reason: Heartburn Clonidine (Clonidine 0.1 Mg Patch.Tdwk) 0.1 mg TRANSDERMA Tu@0900 [facility]; Protocol Last Admin: 07/14/24 07:55 Dose: 0.1 mg Documented By: LATRICIA Enoxaparin Sodium (Enoxaparin Sodium 40 Mg/0.4 Ml Syringe) 40 mg SUBCUT Q24H [facility] Last Admin: 07/13/24 11:33 Dose: 40 mg Documented By: FIONA Loperamide HCl (Loperamide Hcl 2 Mg Capsule) 2 mg PO Q4H PRN PRN Reason: Diarrhea Last Admin: 04/27/24 15:22 Dose: 2 mg Documented By: JESSICA Magnesium Hydroxide (Milk Of Magnesia 30 Ml Oral.Susp) 30 ml PO DAILY PRN PRN Reason: Constipation Melatonin (Melatonin 3 Mg Tablet) 6 mg PO BEDTIME PRN PRN Reason: Insomnia Last Admin: 04/29/24 19:24 Dose: 6 mg Miconazole Nitrate (Miconazole Nitrate 2% Powder 85 Gm Bottle) 1 appl TOPICAL BID PRN; Protocol PRN Reason: yeast Mirtazapine (Mirtazapine 15 Mg Tablet) 15 mg PO BEDTIME [facility] Last Admin: 07/13/24 20:29 Dose: 15 mg Documented By: CRIS Nicotine Polacrilex (Nicotine Polacrilex 2 Mg Gum) 4 mg BUCCAL Q2H PRN PRN Reason: Nicotine Cravings Ondansetron HCl (Ondansetron Hcl 4 Mg/2 Ml Vial) 4 mg IVPUSH Q8H PRN PRN Reason: Nausea and Vomiting Last Admin: 03/02/24 18:44 Dose: 4 mg Documented By: SEN Ondansetron HCl (Ondansetron Odt 4 Mg Tab.Rapdis) 4 mg TRANSLINGU Q6H PRN PRN Reason: Nausea and Vomiting Last Admin: 04/08/24 19:57 Dose: 4 mg Documented By: JENSEN Risperidone (Risperidone Oral Peg 1 Mg/Ml Solution) 0.5 mg PO BID [facility] Last Admin: 07/14/24 07:55 Dose: 0.5 mg Documented By: LATRICIA Trazodone HCl (Trazodone Hcl 25 Mg Halftab) 25 mg PO BEDTIME PRN PRN Reason: Insomnia Last Admin: 04/29/24 19:24 Dose: 25 mg Labs 07/12/24 12:17 07/12/24 12:17 Assessment and Plan (1) Cognitive and behavioral changes: Status: Acute Plan 83M with a h/o htn, unspecified dementia, admitted to [facility] 02/13/24 for FTT, not taking meds or food. Transferred to medicine 02/14/24. 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 DVT prophylaxis with Lovenox Full Code reason for continued hospitalization: awaiting LTC placement oob daily labs weekly The patient HCP is his step-daughter Alcides can be reached on Patient sister name is Dr. Nate Genao and her phone number is to be contacted for any updates. Quality Stroke Does the patient have a stroke diagnosis?: No VTE Prior VTE?: No VTE Risk Level:: Medical - moderate - high VTE Device Contraindication: Treatment Not Indicated VTE Drug Contraindication: N/A - Med Ordered
[2024-07-14] MEDS: Enoxaparin Sodium 40 MG/0.4 ML SYRINGE SUBCUT (13:43)
[2024-07-14 14:52] VITALS: BP 152/89; PULSE 99; RESP 16; TEMP 36.6; O2SAT 96
[2024-07-14] MEDS: OLANZapine 10 MG VIAL IM (21:23)
[2024-07-14 23:27] VITALS: BP 129/70; PULSE 85; RESP 18; TEMP 36.6; O2SAT 96
[2024-07-15 07:31] VITALS: BP 134/70; PULSE 71; RESP 18; TEMP 36.8; O2SAT 97
--- NOTE | 2024-07-15 07:53 | HO.PM.IMPN ---
Subjective Subjective Date of Service: 07/15/24 Interval History: Seen and examined this morning Interval history: No complaints. No changes Review of Systems Review of Systems: Yes Unobtainable due to mental status Physical Exam Vital Signs: Vital Signs: Last Vital Signs Temp 98.2 F 07/15/24 07:31 Pulse 71 07/15/24 07:31 Resp 18 07/15/24 07:31 BP 134/70 07/15/24 07:31 Pulse Ox 97 07/15/24 07:31 O2 Del Method Room Air 07/15/24 07:31 O2 Flow Rate 2 03/28/24 07:24 BMI result Body Mass Index 18.7 Constitutional - Awake and Alert, No apparent distress Eyes - PERRLA, EOMI Cardiovascular - S1S2, RRR, No edema Respiratory - Normal lung expansion, Normal respiratory effort, No respiratory distress, CTA bilaterally Gastrointestinal - NT / ND; +BS; No rebound or guarding Extremities - no calf tenderness bilaterally, no swelling Skin - Warm/Dry Neurological - Alert & disorientated, moving extremities Psychological - Appropriate affect Objective Data Active Medications Acetaminophen (Acetaminophen 325 Mg Tablet) 650 mg PO Q6H PRN PRN Reason: Pain, Mild (Pain Scale 1-3), fever or headache Last Admin: 07/11/24 12:57 Dose: 650 mg Documented By: CELINE Al Hydroxide/Mg Hydroxide (Magnesium Hydrox/Alum Hydrox 30 Ml Oral.Susp) 30 ml PO Q6H PRN PRN Reason: Constipation Benzonatate (Benzonatate 100 Mg Capsule) 100 mg PO TID PRN PRN Reason: Cough Calcium Carbonate (Calcium Carbonate 750 Mg Tab.Chew) 750 mg PO Q4H PRN PRN Reason: Heartburn Clonidine (Clonidine 0.1 Mg Patch.Tdwk) 0.1 mg TRANSDERMA Tu@0900 [facility]; Protocol Last Admin: 07/14/24 07:55 Dose: 0.1 mg Documented By: LATRICIA Enoxaparin Sodium (Enoxaparin Sodium 40 Mg/0.4 Ml Syringe) 40 mg SUBCUT Q24H [facility] Last Admin: 07/14/24 13:43 Dose: 40 mg Documented By: LATRICIA Loperamide HCl (Loperamide Hcl 2 Mg Capsule) 2 mg PO Q4H PRN PRN Reason: Diarrhea Last Admin: 04/27/24 15:22 Dose: 2 mg Documented By: JESSICA Magnesium Hydroxide (Milk Of Magnesia 30 Ml Oral.Susp) 30 ml PO DAILY PRN PRN Reason: Constipation Melatonin (Melatonin 3 Mg Tablet) 6 mg PO BEDTIME PRN PRN Reason: Insomnia Last Admin: 04/29/24 19:24 Dose: 6 mg Miconazole Nitrate (Miconazole Nitrate 2% Powder 85 Gm Bottle) 1 appl TOPICAL BID PRN; Protocol PRN Reason: yeast Mirtazapine (Mirtazapine 15 Mg Tablet) 15 mg PO BEDTIME [facility] Last Admin: 07/14/24 21:00 Dose: Not Given Documented By: PRASAD Non-Admin Reason: Patient Refused Nicotine Polacrilex (Nicotine Polacrilex 2 Mg Gum) 4 mg BUCCAL Q2H PRN PRN Reason: Nicotine Cravings Ondansetron HCl (Ondansetron Hcl 4 Mg/2 Ml Vial) 4 mg IVPUSH Q8H PRN PRN Reason: Nausea and Vomiting Last Admin: 03/02/24 18:44 Dose: 4 mg Documented By: SEN Ondansetron HCl (Ondansetron Odt 4 Mg Tab.Rapdis) 4 mg TRANSLINGU Q6H PRN PRN Reason: Nausea and Vomiting Last Admin: 04/08/24 19:57 Dose: 4 mg Documented By: JENSEN Risperidone (Risperidone Oral Peg 1 Mg/Ml Solution) 0.5 mg PO BID [facility] Last Admin: 07/14/24 21:00 Dose: Not Given Documented By: PRASAD Non-Admin Reason: patient became combative Trazodone HCl (Trazodone Hcl 25 Mg Halftab) 25 mg PO BEDTIME PRN PRN Reason: Insomnia Last Admin: 04/29/24 19:24 Dose: 25 mg Labs 07/12/24 12:17 07/12/24 12:17 Assessment and Plan (1) Cognitive and behavioral changes: Status: Acute Plan 83M with a h/o htn, unspecified dementia, admitted to [facility] 02/13/24 for FTT, not taking meds or food. Transferred to medicine 02/14/24. 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 DVT prophylaxis with Lovenox Full Code reason for continued hospitalization: awaiting LTC placement oob daily labs weekly The patient HCP is his step-daughter Alcides can be reached on Patient sister name is Dr. Nate Genao and her phone number is to be contacted for any updates. Quality Stroke Does the patient have a stroke diagnosis?: No VTE Prior VTE?: No VTE Risk Level:: Medical - moderate - high VTE Device Contraindication: Treatment Not Indicated VTE Drug Contraindication: N/A - Med Ordered
[2024-07-15] MEDS: risperiDONE Oral Sol 1 MG/ML SOLUTION 0.5 MG PO (08:02)
[2024-07-15] MEDS: Enoxaparin Sodium 40 MG/0.4 ML SYRINGE SUBCUT (12:33)
--- NOTE | 2024-07-15 13:44 | MHC.CM.PN ---
pt for ltc conservator working on nilsa
[2024-07-15 15:41] VITALS: BP 149/80; PULSE 82; RESP 16; TEMP 36.7; O2SAT 96
--- NOTE | 2024-07-15 18:54 | PC.NURSE ---
Patient resting comfortably in bed throughout shift. Calm and cooperative with medications, meals, and care. Patient in behavioral control.
[2024-07-15 19:34] VITALS: BP 145/77; PULSE 95; RESP 16; TEMP 36.5; O2SAT 96
[2024-07-15 23:29] VITALS: BP 124/64; PULSE 66; RESP 18; TEMP 36.6; O2SAT 98
[2024-07-16 03:02] VITALS: RESP 14
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
[2024-07-16 10:29] VITALS: BP 123/65; PULSE 67; RESP 18; TEMP 36.3; O2SAT 97
[2024-07-16] MEDS: risperiDONE Oral Sol 1 MG/ML SOLUTION 0.5 MG PO ×2 (10:30→21:41)
[2024-07-16] MEDS: Enoxaparin Sodium 40 MG/0.4 ML SYRINGE SUBCUT (10:31)
--- NOTE | 2024-07-16 10:48 | PC.NURSE ---
Pt Alert, calm, cooperative. Fed self breakfast. Took all AM medications without difficulty. OOB to recliner, 2 assist.
--- NOTE | 2024-07-16 13:28 | MHC.CM.PN ---
[facility] has accepted patient pending PASRR ([facility] SW to complete). HCP and PA aware.
--- NOTE | 2024-07-16 15:52 | HO.PM.IMPN ---
Subjective Subjective Date of Service: 07/16/24 Interval History: Seen and examined this morning Follow-up for placement resting in bed, appears comfortable Physical Exam Vital Signs: Vital Signs: Last Vital Signs Temp 97.3 F 07/16/24 10:29 Pulse 67 07/16/24 10:29 Resp 18 07/16/24 10:29 BP 123/65 07/16/24 10:29 Pulse Ox 97 07/16/24 10:29 O2 Del Method Room Air 07/16/24 10:29 O2 Flow Rate 2 03/28/24 07:24 BMI result Body Mass Index 18.7 Const: General: comfortable, no acute distress, alert and awake Nutritional Appearance: thin Orientation/consciousness: oriented to person Resp: Effort & Inspection: normal respiratory effort, no respiratory distress and no use of accessory muscles GI: Inspection: No distended Palpation (GI): nontender Neuro: Other: grossly nonfocal General: oriented to person Extrem: General: Yes no pedal edema Objective Data Active Medications Acetaminophen (Acetaminophen 325 Mg Tablet) 650 mg PO Q6H PRN PRN Reason: Pain, Mild (Pain Scale 1-3), fever or headache Last Admin: 07/11/24 12:57 Dose: 650 mg Documented By: CELINE Al Hydroxide/Mg Hydroxide (Magnesium Hydrox/Alum Hydrox 30 Ml Oral.Susp) 30 ml PO Q6H PRN PRN Reason: Constipation Benzonatate (Benzonatate 100 Mg Capsule) 100 mg PO TID PRN PRN Reason: Cough Calcium Carbonate (Calcium Carbonate 750 Mg Tab.Chew) 750 mg PO Q4H PRN PRN Reason: Heartburn Clonidine (Clonidine 0.1 Mg Patch.Tdwk) 0.1 mg TRANSDERMA Tu@0900 [facility]; Protocol Last Admin: 07/14/24 07:55 Dose: 0.1 mg Documented By: LATRICIA Enoxaparin Sodium (Enoxaparin Sodium 40 Mg/0.4 Ml Syringe) 40 mg SUBCUT Q24H [facility] Last Admin: 07/16/24 10:31 Dose: 40 mg Documented By: MARCELLE Loperamide HCl (Loperamide Hcl 2 Mg Capsule) 2 mg PO Q4H PRN PRN Reason: Diarrhea Last Admin: 04/27/24 15:22 Dose: 2 mg Documented By: JESSICA Magnesium Hydroxide (Milk Of Magnesia 30 Ml Oral.Susp) 30 ml PO DAILY PRN PRN Reason: Constipation Melatonin (Melatonin 3 Mg Tablet) 6 mg PO BEDTIME PRN PRN Reason: Insomnia Last Admin: 04/29/24 19:24 Dose: 6 mg Miconazole Nitrate (Miconazole Nitrate 2% Powder 85 Gm Bottle) 1 appl TOPICAL BID PRN; Protocol PRN Reason: yeast Mirtazapine (Mirtazapine 15 Mg Tablet) 15 mg PO BEDTIME [facility] Last Admin: 07/15/24 23:08 Dose: Not Given Documented By: JORGE Non-Admin Reason: Patient Refused Nicotine Polacrilex (Nicotine Polacrilex 2 Mg Gum) 4 mg BUCCAL Q2H PRN PRN Reason: Nicotine Cravings Ondansetron HCl (Ondansetron Hcl 4 Mg/2 Ml Vial) 4 mg IVPUSH Q8H PRN PRN Reason: Nausea and Vomiting Last Admin: 03/02/24 18:44 Dose: 4 mg Documented By: SEN Ondansetron HCl (Ondansetron Odt 4 Mg Tab.Rapdis) 4 mg TRANSLINGU Q6H PRN PRN Reason: Nausea and Vomiting Last Admin: 04/08/24 19:57 Dose: 4 mg Documented By: JENSEN Risperidone (Risperidone Oral Peg 1 Mg/Ml Solution) 0.5 mg PO BID [facility] Last Admin: 07/16/24 10:30 Dose: 0.5 mg Documented By: MARCELLE Risperidone (Risperidone 0.5 Mg Tablet) 0.5 mg PO DAILY PRN PRN Reason: Agitation Trazodone HCl (Trazodone Hcl 25 Mg Halftab) 25 mg PO BEDTIME PRN PRN Reason: Insomnia Last Admin: 04/29/24 19:24 Dose: 25 mg Labs 07/12/24 12:17 07/12/24 12:17 Assessment and Plan (1) Major neurocognitive disorder due to Alzheimer disease: Status: Acute Plan 83M with a h/o htn, unspecified dementia, admitted to [facility] 02/13/24 for FTT, not taking meds or food. Transferred to medicine 02/14/24. 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 DVT prophylaxis with Lovenox Full Code reason for continued hospitalization: awaiting LTC placement oob daily labs weekly The patient HCP is his step-daughter Alcides can be reached on Patient sister name is Dr. Nate Genao and her phone number is to be contacted for any updates. Quality Stroke Does the patient have a stroke diagnosis?: No VTE Prior VTE?: No VTE Risk Level:: Medical - moderate - high VTE Device Contraindication: Treatment Not Indicated VTE Drug Contraindication: N/A - Med Ordered
[2024-07-16] MEDS: Mirtazapine 15 MG TABLET PO (21:41)
[2024-07-16 23:20] VITALS: BP 139/72; PULSE 67; RESP 18; TEMP 36.2; O2SAT 97
--- NOTE | 2024-07-17 05:56 | PC.NURSE ---
[id number]- Patient slept in long naps, no s/sx pain or resp distress, skin care and repositioning with assist of 2, Pernell took all scheduled medications without difficulty, enjoyed a cup of ice cream, and HFR protocol measures maintained. will continue to monitor closely.
[2024-07-17 07:47] VITALS: BP 155/68; PULSE 63; RESP 18; TEMP 36; O2SAT 98
[2024-07-17] MEDS: Enoxaparin Sodium 40 MG/0.4 ML SYRINGE SUBCUT (10:27)
[2024-07-17] MEDS: risperiDONE Oral Sol 1 MG/ML SOLUTION 0.5 MG PO ×2 (10:30→19:53)
--- NOTE | 2024-07-17 13:47 | MHC.CM.PN ---
PASRR completed. [facility] able to accept patient Thursday 07/20.
[2024-07-17 15:44] VITALS: BP 157/78; PULSE 98; RESP 18; TEMP 36.9; O2SAT 93
--- NOTE | 2024-07-17 16:00 | HO.PM.IMPN ---
Subjective Subjective Date of Service: 07/17/24 Interval History: Seen and examined this morning Follow-up for placement no overnight events Physical Exam Vital Signs: Vital Signs: Last Vital Signs Temp 98.5 F 07/17/24 15:44 Pulse 98 07/17/24 15:44 Resp 18 07/17/24 15:44 BP 157/78 H 07/17/24 15:44 Pulse Ox 93 07/17/24 15:44 O2 Del Method Room Air 07/17/24 15:44 O2 Flow Rate 2 03/28/24 07:24 BMI result Body Mass Index 18.7 Const: General: comfortable, no acute distress, alert and awake Nutritional Appearance: thin Orientation/consciousness: oriented to person Resp: Effort & Inspection: normal respiratory effort, no respiratory distress and no use of accessory muscles GI: Inspection: No distended Palpation (GI): nontender Neuro: Other: grossly nonfocal General: oriented to person Extrem: General: Yes no pedal edema Objective Data Active Medications Acetaminophen (Acetaminophen 325 Mg Tablet) 650 mg PO Q6H PRN PRN Reason: Pain, Mild (Pain Scale 1-3), fever or headache Last Admin: 07/11/24 12:57 Dose: 650 mg Documented By: CELINE Al Hydroxide/Mg Hydroxide (Magnesium Hydrox/Alum Hydrox 30 Ml Oral.Susp) 30 ml PO Q6H PRN PRN Reason: Constipation Benzonatate (Benzonatate 100 Mg Capsule) 100 mg PO TID PRN PRN Reason: Cough Calcium Carbonate (Calcium Carbonate 750 Mg Tab.Chew) 750 mg PO Q4H PRN PRN Reason: Heartburn Clonidine (Clonidine 0.1 Mg Patch.Tdwk) 0.1 mg TRANSDERMA Tu@0900 [facility]; Protocol Last Admin: 07/14/24 07:55 Dose: 0.1 mg Documented By: LATRICIA Enoxaparin Sodium (Enoxaparin Sodium 40 Mg/0.4 Ml Syringe) 40 mg SUBCUT Q24H [facility] Last Admin: 07/17/24 10:27 Dose: 40 mg Documented By: MARCELLE Loperamide HCl (Loperamide Hcl 2 Mg Capsule) 2 mg PO Q4H PRN PRN Reason: Diarrhea Last Admin: 04/27/24 15:22 Dose: 2 mg Documented By: JESSICA Magnesium Hydroxide (Milk Of Magnesia 30 Ml Oral.Susp) 30 ml PO DAILY PRN PRN Reason: Constipation Melatonin (Melatonin 3 Mg Tablet) 6 mg PO BEDTIME PRN PRN Reason: Insomnia Last Admin: 04/29/24 19:24 Dose: 6 mg Miconazole Nitrate (Miconazole Nitrate 2% Powder 85 Gm Bottle) 1 appl TOPICAL BID PRN; Protocol PRN Reason: yeast Mirtazapine (Mirtazapine 15 Mg Tablet) 15 mg PO BEDTIME [facility] Last Admin: 07/16/24 21:41 Dose: 15 mg Documented By: JEZ Nicotine Polacrilex (Nicotine Polacrilex 2 Mg Gum) 4 mg BUCCAL Q2H PRN PRN Reason: Nicotine Cravings Ondansetron HCl (Ondansetron Hcl 4 Mg/2 Ml Vial) 4 mg IVPUSH Q8H PRN PRN Reason: Nausea and Vomiting Last Admin: 03/02/24 18:44 Dose: 4 mg Documented By: SEN Ondansetron HCl (Ondansetron Odt 4 Mg Tab.Rapdis) 4 mg TRANSLINGU Q6H PRN PRN Reason: Nausea and Vomiting Last Admin: 04/08/24 19:57 Dose: 4 mg Documented By: JENSEN Risperidone (Risperidone Oral Peg 1 Mg/Ml Solution) 0.5 mg PO BID [facility] Last Admin: 07/17/24 10:30 Dose: 0.5 mg Documented By: MARCELLE Risperidone (Risperidone 0.5 Mg Tablet) 0.5 mg PO DAILY PRN PRN Reason: Agitation Trazodone HCl (Trazodone Hcl 25 Mg Halftab) 25 mg PO BEDTIME PRN PRN Reason: Insomnia Last Admin: 04/29/24 19:24 Dose: 25 mg Labs 07/12/24 12:17 07/12/24 12:17 Assessment and Plan (1) Major neurocognitive disorder due to Alzheimer disease: Status: Acute Plan 83M with a h/o htn, unspecified dementia, admitted to [facility] 02/13/24 for FTT, not taking meds or food. Transferred to medicine 02/14/24. 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 DVT prophylaxis with Lovenox Full Code reason for continued hospitalization: awaiting LTC placement oob daily labs weekly The patient HCP is his step-daughter Alcides can be reached on Patient sister name is Dr. Nate Genao and her phone number is to be contacted for any updates. Quality Stroke Does the patient have a stroke diagnosis?: No VTE Prior VTE?: No VTE Risk Level:: Medical - moderate - high VTE Device Contraindication: Treatment Not Indicated VTE Drug Contraindication: N/A - Med Ordered
--- NOTE | 2024-07-17 18:30 | PC.NURSE ---
Pt Alert, confused. Impulsive at times, but redirectable. Cooperative with care. Took all meds as ordered. OOB to chair 2 assist. Skin tears to right wrist and left hand -dressings changed with xeroform gauze. Ate @ 25% of meals today.
[2024-07-17] MEDS: Mirtazapine 15 MG TABLET PO (19:53)
[2024-07-17 23:58] VITALS: BP 156/73; PULSE 72; RESP 18; TEMP 36.3; O2SAT 96
[2024-07-18 07:51] VITALS: BP 143/69; PULSE 68; RESP 18; TEMP 36.5; O2SAT 97
[2024-07-18] MEDS: risperiDONE Oral Sol 1 MG/ML SOLUTION 0.5 MG PO ×2 (08:20→20:22)
--- NOTE | 2024-07-18 09:51 | HO.PM.IMPN ---
Subjective Subjective Date of Service: 07/18/24 Interval History: Seen and examined this morning Follow-up for placement no overnight events Physical Exam Vital Signs: Vital Signs: Last Vital Signs Temp 97.7 F 07/18/24 07:51 Pulse 68 07/18/24 07:51 Resp 18 07/18/24 07:51 BP 143/69 H 07/18/24 07:51 Pulse Ox 97 07/18/24 07:51 O2 Del Method Room Air 07/18/24 07:51 O2 Flow Rate 2 03/28/24 07:24 BMI result Body Mass Index 18.7 alert and confused Objective Data Active Medications Acetaminophen (Acetaminophen 325 Mg Tablet) 650 mg PO Q6H PRN PRN Reason: Pain, Mild (Pain Scale 1-3), fever or headache Last Admin: 07/11/24 12:57 Dose: 650 mg Documented By: CELINE Al Hydroxide/Mg Hydroxide (Magnesium Hydrox/Alum Hydrox 30 Ml Oral.Susp) 30 ml PO Q6H PRN PRN Reason: Constipation Benzonatate (Benzonatate 100 Mg Capsule) 100 mg PO TID PRN PRN Reason: Cough Calcium Carbonate (Calcium Carbonate 750 Mg Tab.Chew) 750 mg PO Q4H PRN PRN Reason: Heartburn Clonidine (Clonidine 0.1 Mg Patch.Tdwk) 0.1 mg TRANSDERMA Tu@0900 [facility]; Protocol Last Admin: 07/14/24 07:55 Dose: 0.1 mg Documented By: LATRICIA Enoxaparin Sodium (Enoxaparin Sodium 40 Mg/0.4 Ml Syringe) 40 mg SUBCUT Q24H [facility] Last Admin: 07/17/24 10:27 Dose: 40 mg Documented By: MARCELLE Loperamide HCl (Loperamide Hcl 2 Mg Capsule) 2 mg PO Q4H PRN PRN Reason: Diarrhea Last Admin: 04/27/24 15:22 Dose: 2 mg Documented By: JESSICA Magnesium Hydroxide (Milk Of Magnesia 30 Ml Oral.Susp) 30 ml PO DAILY PRN PRN Reason: Constipation Melatonin (Melatonin 3 Mg Tablet) 6 mg PO BEDTIME PRN PRN Reason: Insomnia Last Admin: 04/29/24 19:24 Dose: 6 mg Miconazole Nitrate (Miconazole Nitrate 2% Powder 85 Gm Bottle) 1 appl TOPICAL BID PRN; Protocol PRN Reason: yeast Mirtazapine (Mirtazapine 15 Mg Tablet) 15 mg PO BEDTIME [facility] Last Admin: 07/17/24 19:53 Dose: 15 mg Documented By: MARILEE Nicotine Polacrilex (Nicotine Polacrilex 2 Mg Gum) 4 mg BUCCAL Q2H PRN PRN Reason: Nicotine Cravings Ondansetron HCl (Ondansetron Hcl 4 Mg/2 Ml Vial) 4 mg IVPUSH Q8H PRN PRN Reason: Nausea and Vomiting Last Admin: 03/02/24 18:44 Dose: 4 mg Documented By: SEN Ondansetron HCl (Ondansetron Odt 4 Mg Tab.Rapdis) 4 mg TRANSLINGU Q6H PRN PRN Reason: Nausea and Vomiting Last Admin: 04/08/24 19:57 Dose: 4 mg Documented By: JENSEN Risperidone (Risperidone Oral Peg 1 Mg/Ml Solution) 0.5 mg PO BID [facility] Last Admin: 07/18/24 08:20 Dose: 0.5 mg Documented By: WILMA Risperidone (Risperidone 0.5 Mg Tablet) 0.5 mg PO DAILY PRN PRN Reason: Agitation Trazodone HCl (Trazodone Hcl 25 Mg Halftab) 25 mg PO BEDTIME PRN PRN Reason: Insomnia Last Admin: 04/29/24 19:24 Dose: 25 mg Labs 07/12/24 12:17 07/12/24 12:17 Assessment and Plan (1) Major neurocognitive disorder due to Alzheimer disease: Status: Acute Plan 83M with a h/o htn, unspecified dementia, admitted to [facility] 02/13/24 for FTT, not taking meds or food. Transferred to medicine 02/14/24. 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 DVT prophylaxis with Lovenox Full Code reason for continued hospitalization: awaiting LTC placement oob daily labs weekly The patient HCP is his step-daughter Alcides can be reached on Patient sister name is Dr. Nate Genao and her phone number is to be contacted for any updates. Quality Stroke Does the patient have a stroke diagnosis?: No VTE Prior VTE?: No VTE Risk Level:: Medical - moderate - high VTE Device Contraindication: Treatment Not Indicated VTE Drug Contraindication: N/A - Med Ordered
[2024-07-18] MEDS: Enoxaparin Sodium 40 MG/0.4 ML SYRINGE SUBCUT (11:14)
--- NOTE | 2024-07-18 14:04 | PC.NURSE ---
New skin tear to left dorsal forearm found after pt attempting to get out of recliner, rinsed with normal saline and covered with xeroform and wrapped with gauze, no tape to skin, pt cooperative and tolerated dressing application well. Talita Mccoy POSTAL MAIL CARRIER notified. pt resting comfortably in recliner at this time.
[2024-07-18 15:13] VITALS: BP 134/75; PULSE 89; RESP 16; TEMP 37; O2SAT 96
[2024-07-18] MEDS: Mirtazapine 15 MG TABLET PO (20:17)
[2024-07-18 23:36] VITALS: BP 152/66; PULSE 66; RESP 18; TEMP 36.2; O2SAT 96
--- NOTE | 2024-07-19 03:43 | PC.NURSE ---
Pt confused took pm meds without difficulty.Dsgs to skin tears on left hand,left forearm and right wrist D+I.Inc of urine gilmer care given repositioned.HOB elevated.Resting in bed.
[2024-07-19 08:00] VITALS: BP 152/69; PULSE 63; RESP 14; TEMP 36.8; O2SAT 97
[2024-07-19] MEDS: risperiDONE Oral Sol 1 MG/ML SOLUTION 0.5 MG PO (09:14)
[2024-07-19] MEDS: Enoxaparin Sodium 40 MG/0.4 ML SYRINGE SUBCUT (10:45)
--- NOTE | 2024-07-19 10:53 | HO.PM.IMPN ---
Subjective Subjective Date of Service: 07/19/24 Interval History: Seen and examined this morning Follow-up for placement no overnight events, no medical changes Physical Exam Vital Signs: Vital Signs: Last Vital Signs Temp 98.2 F 07/19/24 08:00 Pulse 63 07/19/24 08:00 Resp 14 07/19/24 08:00 BP 152/69 H 07/19/24 08:00 Pulse Ox 97 07/19/24 08:00 O2 Del Method Room Air 07/19/24 08:00 O2 Flow Rate 2 03/28/24 07:24 BMI result Body Mass Index 18.7 alert and confused Objective Data Active Medications Acetaminophen (Acetaminophen 325 Mg Tablet) 650 mg PO Q6H PRN PRN Reason: Pain, Mild (Pain Scale 1-3), fever or headache Last Admin: 07/11/24 12:57 Dose: 650 mg Documented By: CELINE Al Hydroxide/Mg Hydroxide (Magnesium Hydrox/Alum Hydrox 30 Ml Oral.Susp) 30 ml PO Q6H PRN PRN Reason: Constipation Benzonatate (Benzonatate 100 Mg Capsule) 100 mg PO TID PRN PRN Reason: Cough Calcium Carbonate (Calcium Carbonate 750 Mg Tab.Chew) 750 mg PO Q4H PRN PRN Reason: Heartburn Clonidine (Clonidine 0.1 Mg Patch.Tdwk) 0.1 mg TRANSDERMA Tu@0900 [facility]; Protocol Last Admin: 07/14/24 07:55 Dose: 0.1 mg Documented By: LATRICIA Enoxaparin Sodium (Enoxaparin Sodium 40 Mg/0.4 Ml Syringe) 40 mg SUBCUT Q24H [facility] Last Admin: 07/19/24 10:45 Dose: 40 mg Documented By: TAWNYA Loperamide HCl (Loperamide Hcl 2 Mg Capsule) 2 mg PO Q4H PRN PRN Reason: Diarrhea Last Admin: 04/27/24 15:22 Dose: 2 mg Documented By: JESSICA Magnesium Hydroxide (Milk Of Magnesia 30 Ml Oral.Susp) 30 ml PO DAILY PRN PRN Reason: Constipation Melatonin (Melatonin 3 Mg Tablet) 6 mg PO BEDTIME PRN PRN Reason: Insomnia Last Admin: 04/29/24 19:24 Dose: 6 mg Miconazole Nitrate (Miconazole Nitrate 2% Powder 85 Gm Bottle) 1 appl TOPICAL BID PRN; Protocol PRN Reason: yeast Mirtazapine (Mirtazapine 15 Mg Tablet) 15 mg PO BEDTIME [facility] Last Admin: 07/18/24 20:17 Dose: 15 mg Documented By: MARILEE Nicotine Polacrilex (Nicotine Polacrilex 2 Mg Gum) 4 mg BUCCAL Q2H PRN PRN Reason: Nicotine Cravings Ondansetron HCl (Ondansetron Hcl 4 Mg/2 Ml Vial) 4 mg IVPUSH Q8H PRN PRN Reason: Nausea and Vomiting Last Admin: 03/02/24 18:44 Dose: 4 mg Documented By: SEN Ondansetron HCl (Ondansetron Odt 4 Mg Tab.Rapdis) 4 mg TRANSLINGU Q6H PRN PRN Reason: Nausea and Vomiting Last Admin: 04/08/24 19:57 Dose: 4 mg Documented By: JENSEN Risperidone (Risperidone Oral Peg 1 Mg/Ml Solution) 0.5 mg PO BID [facility] Last Admin: 07/19/24 09:14 Dose: 0.5 mg Documented By: WLIMA Risperidone (Risperidone 0.5 Mg Tablet) 0.5 mg PO DAILY PRN PRN Reason: Agitation Trazodone HCl (Trazodone Hcl 25 Mg Halftab) 25 mg PO BEDTIME PRN PRN Reason: Insomnia Last Admin: 04/29/24 19:24 Dose: 25 mg Labs 07/12/24 12:17 07/12/24 12:17 Assessment and Plan (1) Major neurocognitive disorder due to Alzheimer disease: Status: Acute Plan 83M with a h/o htn, unspecified dementia, admitted to [facility] 02/13/24 for FTT, not taking meds or food. Transferred to medicine 02/14/24. 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 CJD ruled out EEG showed general slowing but no seizure disorder Dysphagia [employer] rec NDD3 solids, thin liquids Bilateral conjunctivitis completed treatment, resolved Hypertension-controlled Transdermal clonidine Mood disorder s/p psych eval risperidone 0.5mg PO BID remeron for sleep Re-consult if any further concerns. DVT prophylaxis with Lovenox Full Code reason for continued hospitalization: awaiting LTC placement oob daily labs weekly The patient HCP is his step-daughter Alcides can be reached on Patient sister name is Dr. Nate Genao and her phone number is to be contacted for any updates. Quality Stroke Does the patient have a stroke diagnosis?: No VTE Prior VTE?: No VTE Risk Level:: Medical - moderate - high VTE Device Contraindication: Treatment Not Indicated VTE Drug Contraindication: N/A - Med Ordered
[2024-07-19 15:30] VITALS: BP 150/70; PULSE 72; RESP 18; TEMP 37.1; O2SAT 95
[2024-07-20 03:43] VITALS: BP 146/79; PULSE 61; RESP 16; TEMP 36.1; O2SAT 97
[2024-07-20 07:37] VITALS: BP 163/73; PULSE 63; RESP 14; TEMP 36.3; O2SAT 96
[2024-07-20] MEDS: risperiDONE Oral Sol 1 MG/ML SOLUTION 0.5 MG PO (09:15)
--- NOTE | 2024-07-20 09:59 | MHC.CM.PN ---
Addendum entered by Mayra Martinez 07/20/24 15:11: Patient has approval to transfer today to [facility]. Patient step dtr Alcides notified of DC, transport time 4pm, and IMM, via . Patient will transport via BLS 4pm pick scheduled. IMM 07/20/24 Original Note: IMM 07/20/24 [facility] has agreed to accept the patient for LTC. A recliner has been ordered, delivery is pending. The SNF wants to hold admission for chair delivery. CM has requested that the discharge not be held for the recliner delivery. The liason has not responded to the message in [facility].
[2024-07-20] MEDS: Enoxaparin Sodium 40 MG/0.4 ML SYRINGE SUBCUT (11:23)
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
--- NOTE | 2024-07-20 13:26 | PC.NURSE ---
Attempted to call report to Accepting KUN Ramsay [facility] [phone] nurse with a pt . I will call back within the hour
--- NOTE | 2024-07-20 14:48 | PC.NURSE ---
Report called to KUN Richard at [facility] [phone] .
[2024-07-20 15:17] VITALS: BP 128/64; PULSE 80; RESP 16; TEMP 36.2; O2SAT 94
== END 2024-07-20 17:43 | DRG 884 ==
LOC: HO.IMC 04-01 07:28 → HO.S3 04-01 17:34
PROVIDERS: Internal Medicine; Physician Assistant Medical; Student in an Organized Health Care Education/Training Program; Admitting Provider Social Worker; Visit Provider Nurse Practitioner Acute Care
DX: F03.918 Unspecified dementia, unspecified severity, with other behavioral disturbance (principal); G92.8 Other toxic encephalopathy; S52.502A Unspecified fracture of the lower end of left radius, initial encounter for closed fracture; E44.0 Moderate protein-calorie malnutrition; Z68.1 Body mass index [BMI] 19.9 or less, adult; H10.9 Unspecified conjunctivitis; G31.9 Degenerative disease of nervous system, unspecified; V89.2XXA Person injured in unspecified motor-vehicle accident, traffic, initial encounter; F39 Unspecified mood [affective] disorder; I10 Essential (primary) hypertension; Z75.1 Person awaiting admission to adequate facility elsewhere; Z91.148 Patient's other noncompliance with medication regimen for other reason; Z79.899 Other long term (current) drug therapy
CPT/HCPCS: 36415; 62328; 70551; 71045; 74018; 80048; 80053; 80076; 81003; 82947; 83735; 84100; 84443; 85025; 85027; 87015; 87070; 87205; 87493; 87507; 89055; 92526; 92610; 95816; 97161; 97162; J1650; J2060; J2359; J2405; J7120; S9485

== ENCOUNTER 2024-02-14 18:44 | Outpatient (BNV) | payer MEDICARE, SELFPAY | END 2024-02-18 10:00 | PROVIDERS: Admitting Provider Social Worker; Visit Provider Physician Assistant Surgical | DX: G93.41 Metabolic encephalopathy (principal) | CPT/HCPCS: 62328 ==

== ENCOUNTER → 2024-02-14 18:44 | Outpatient (BNV) | payer MEDICARE, SELFPAY | PROVIDERS: Admitting Provider Social Worker; Visit Provider Registered Nurse | DX: F03.918 Unspecified dementia, unspecified severity, with other behavioral disturbance (principal) | CPT/HCPCS: 99232 ==

== ENCOUNTER → 2024-02-14 18:44 | Outpatient (BNV) | payer MEDICARE, SELFPAY | PROVIDERS: Admitting Provider Social Worker; Visit Provider Student in an Organized Health Care Education/Training Program | DX: R41.89 Other symptoms and signs involving cognitive functions and awareness (principal); R46.89 Other symptoms and signs involving appearance and behavior | CPT/HCPCS: 99223; 99231; 99232; 99233; 99499 ==

== ENCOUNTER 2024-07-22 19:39 | Emergency (ER) | payer MEDICARE, SELFPAY ==
[2024-07-22 19:49] VITALS: BP 130/77; PULSE 101; RESP 18; TEMP 36.4; O2SAT 98
[2024-07-22 20:00] VITALS: BP 121/74; PULSE 95; O2SAT 99
[2024-07-22 20:01] VITALS: BP 130/77; PULSE 101; RESP 18; TEMP 36.4; O2SAT 98; BMI 24.9
--- OUTSIDE RECORDS SUMMARY | 2024-07-22 20:54 | XMS_ITS | Clinical Summary ---
Author Organization [facility] Address [address] [place] [address] Phone Care Team Providers Care Coining Press Operator Name Role Phone AutomaticallyONE, SignedONE Unavailable Conditions or Problems Problem Name Problem Code Onset Date Status Entry Date Provider Comment Standard Description Annotate ELEVATED LIVER ENZYMES 099013683 (SNOMED CT) 06/25 Active 06/25 Chiki Christianson DO Liver enzymes level above reference range BENIGN OBSTRUCTIVE JAUNDICE 74166235 (SNOMED CT) 06/25 Active 06/25 Chiki Christianson DO Obstructive hyperbilirubinem ia ACUTE GANGRENOUS CHOLECYSTITI S 53477861 (SNOMED CT) 06/10 Inactive 06/19 Harriett Burnard [employer] Acute gangrenous cholecystitis ACUTE GANGRENOUS CHOLECYSTITI S 74452409 (SNOMED CT) 06/10 Inactive 06/19 Harriett Burnard [employer] Acute gangrenous cholecystitis Medications Medication Instructions Start Date Stop Date Generic Name ND Provider ROXICODONE 5 MG ORAL TABLET one po q4hrs prn pain- no drinking or drivng while on ain meds 8 OXYCODONE HCL 92425091189 Jamel Kate MD ROXICODONE 5 MG ORAL TABLET one po q4hrs prn pain- no drinking or drivng while on ain meds 8 OXYCODONE HCL [id number] Jamel Kate MD Medications Administered No information available. Allergies, Adverse Reactions, Alerts Observed no known allergies at Results Date Name Value Unit Range Flag Description Lab Report: COMPREHENSIVE ME TABOLIC PANEL, LIPASE LIPASE SERUM 117 U/L 70-350 lipase, serum Lab Report: HEPATIC FUNCTION PANEL, GGT(GGTP) GGT 1004 U/L 0-73 H gamma glutamy l transferase, serum Lab Report: HEPATIC FUNCTION PANEL SGPT (ALT) 37 U/L 13-61 Alanine aminotransferase [Enzymatic activity/volume] in Serum or Plasma SGOT (AST) 40 U/L 15-40 Aspartate aminotransferase [Enzymatic activity/volume] in Serum or Plasma ALK PHOS 86 U/L 50-136 Alkaline nhung sphatase [Enzymatic activity/volume] in Blood BILI DIRECT 0.2 mg/dL 0.0-0.2 Bilirubin .direct [Mass/volume] in Serum or Plasma BILI TOTAL 0.8 mg/dL 0.3-1.2 Bilirubin. total [Mass/volume] in Serum or Plasma A/G RATIO 1.6 Albumin/Stefanie bulin [Mass Ratio] in Serum or Plasma GLOBULIN TOT 2.4 g/dL 2.3-4.0 Globulin [Mass/volume] in Serum ALBUMIN 3.8 g/dL 3.4-5.5 Albumin [Mass/volume] in Serum or Plasma PROTEIN, TOT 6.2 g/dL 6.4-8.3 L Protein [Mass/volume] in Serum or Plasma Lab Report: BASIC METABOLIC PANEL / LOC:ED, ETHANOL / LOC:ED ETHANOL BLD < 3 mg/dL % <3 ethanol blood CALCIUM 10.2 mg/dL 8.7-10.4 Calcium [Moles/volume] in Serum or Plasma GFRC 59 (?) mL/min/1 .73m2 >60 L Glomerular Filtration Rate Calculation CREATININE 1.22 mg/dL 0.70-1.30 Creatini ne [Mass/volume] in Serum or Plasma BUN 15 mg/dL 9-23 Urea nitrogen [Mass/volume] in Serum or Plasma BG RANDOM 96 mg/dL 70-99 Glucose [Mass/volume] in Blood ANION GAP 5 mEq/L 2-12 Anion gap 4 in Serum or Plasma CO2 TOTAL 29 MEQ/L mmol/L 20.0-31.0 carbon d ioxide, serum, total CL SERUM 108 meq/L 99-113 Chloride [Moles/volume] in Serum or Plasma K SERUM 4.5 meq/L 3.5-5.5 Potassium [Moles/volume] in Serum or Plasma SODIUM 142 MEQ/L mmol/L 135-145 Sodium [Moles/volume] in Serum or Plasma Lab Report: CBC WITH DIFFERE NTIAL / LOC:ED MPV 10.1 fL 9.4-12.4 Platelet jamel n volume [Entitic volume] in Blood by Ajay-Laura RDW 12.7 % 11.5-14.5 Erythrocyte distribution width [Ratio] by Automated count MCHC 34.8 G/DL % 31.0-35.5 MCHC [Mas s/volume] by Automated count MCH 31.9 pg 26.0-34.0 MCH [Entiti c mass] by Automated count MCV 91.6 fL 80.0-99.0 MCV [Entiti c volume] by Automated count BASOPH COUNT 0.1 10*3/mm3 0-0.3 Basophi ls [#/volume] in Blood by Manual count EOS COUNT 0.1 10*3/mm3 0-0.5 eosinophil count, blood MONOCYTE CNT 0.6 10*3/mm3 0.0-0.8 monocyt e count, blood LYMPH COUNT 1.3 10*3/mm3 1.0-4.8 lymphocy te count, blood NEUTRO COUNT 5.9 10*3/mm3 1.8-7.7 neutrop hil count, blood IMM GRANU % 0.6 % 0-5 Immature granulocytes/100 leukocytes in Blood BASOPHIL % 0.8 % 0-3 Basophils/ 100 leukocytes in Blood by Manual count EOSINOPHIL % 1.3 % 0-6 Eosinoph ils/100 leukocytes in Blood by Manual count MONOCYTE % 7.1 % 0-11 Monocytes/ 100 leukocytes in Blood by Automated count LYMPHS % 16.0 % 22-44 L Lymphocytes/ 100 leukocytes in Blood by Automated count PMN % 74.2 % 40-70 H Neutrophils/1 00 leukocytes in Blood by Automated count PLATELETS 209 10*3/mm3 150-450 Platelets [#/volume] in Blood by Automated count HCT 45.7 % 41.0-53.0 Hematocrit [Volume Fraction] of Blood by Automated count HGB 15.9 g/dL 13.5-17.5 Hemoglobin [Mass/volume] in Blood RBC 4.99 10*6/mm3 4.50-5.90 Erythrocyt es [#/volume] in Blood by Automated count WBC 7.9 10*3/mm3 4.5-11.0 Leukocytes [#/volume] in Blood by Automated count Lab Report: URINALYSIS w/Ref lloyd UC / LOC:EDADM WBC ESTERASE NEGATIVE NEGATIVE leukoc yte (WBC) esterase, urine NITRITE UA NEGATIVE NEGATIVE Nitrite Urine UROBILINO UR 1.0 {Juan A _U}/dL <=1.0 urobilinogen, urine PROTEIN UR NEGATIVE mg/dL NEGATIVE Protein [Mass] in Urine collected for unspecified duration BLOOD UR NEGATIVE NEGATIVE BLOOD, URI NE (hematuria) KETONES UA TRACE mg/dL NEGATIVE Ketones [Mass/volume] in Urine by Test strip BILIRUBIN UR NEGATIVE NEGATIVE Biliru bin.total [Presence] in Urine by Test strip GLUCOSE UA NEGATIVE mg/dL NEGATIVE Glucose Urine SPEC GR URIN >= 1.030 1.005-1.025 H Spe cific gravity of Urine by Test strip PH U QN 7.5 5.5-7.5 ph, urine, quantitative APPEARANCE U CLEAR CLEAR Appearan ce of Urine UA COLOR YELLOW YELLOW Color of Uri ne Plan of Care Type Date Detail Pending order Hepatic Function Panel Pending order Hepatic Function Panel Pending order MRI Biliary Syst em (MRCP) Pending order GGT (GGTP) Pending order Hepatic Function Panel Patient education Medications Procedures Code Procedure Name Date Entry Date [facility]-[id number] Patient encounter procedure [id number] Patient encounter procedure Vital Signs Date Name Value Unit Description BMI (Body Mass Index) 23.80 kg/m2 Bod y Mass Index (Ratio) BP Diastolic 78 mm[Hg] blood pressu re, diastolic BP Systolic 152 mm[Hg] blood pressur e, systolic Body Temperature 97.9 [degF] temperat ure E&M Heart Rate 88 /min pulse rate Height 71 [in_us] height E&M Weight Measured 170 [lb_av] weight E& M Immunizations No information available. Advance Directives No information available.
[2024-07-22 22:16] VITALS: BP 117/59; PULSE 67; RESP 18; O2SAT 97
[2024-07-22 22:59] LABS: MANUAL DIFF FLAG NO
[2024-07-22 23:00] LABS: Basophils Absolute Auto 0.1 X10*3/uL (0.0-0.2); Basophils Percent Auto 0.8 % (0-2); Eosinophils Absolute Auto 0.4 X10*3/uL (0.0-0.4); Eosinophils Percent Auto 4.6 % (0-4); Hematocrit 38.7 % (42.0-52.0); Hemoglobin 13.7 g/dl (14.0-18.0); Imm Gran Abs Auto 0.04 X10*3/uL (0.00-0.03); Imm Gran Pct Auto 0.5 % (0.0-0.4); Lymphocytes Absolute Auto 1.4 X10*3/uL (1.2-4.9); Lymphocytes Percent Auto 16.9 % (20-40); Mean Corpuscular HGB Conc 35.4 g/dl (31.0-36.0); Mean Corpuscular Hemoglobin 32.2 pg (27.0-33.0); Mean Corpuscular Volume 90.8 fL (80.0-98.0); Mean Platelet Volume 10.1 fL (9.4-12.4); Monocytes Absolute Auto 0.6 X10*3/uL (0.1-1.2); Monocytes Percent Auto 7.8 % (2-11); Neutrophils Absolute Auto 5.6 x10*3/uL (2.0-8.3); Neutrophils Percent Auto 69.4 % (45-73); Platelet Count 251 X10*3/uL (160-400); Red Blood Count 4.26 X10*6/uL (4.60-5.80); Red Cell Distribution Width 13.6 % (11.0-16.0)
[2024-07-22 23:14] LABS: Alanine Aminotransferase 16 U/L (0-40); Albumin Level 3.3 g/dL (3.5-5.0); Alkaline Phosphatase 65 U/L (39-117); Anion Gap 8 (12-20); Aspartate Amino Transferase 18 U/L (5-37); Bilirubin Total 0.3 mg/dL (0.0-1.0); Blood Urea Nitrogen 20 mg/dL (9-16); Calcium 8.7 mg/dL (8.4-10.2); Carbon Dioxide 23 mmol/L (22-29); Chloride 115 mmol/L (96-108); Creatinine Clr Calc Pharmacy 79.8; Estimated Glomerular Filt Rate > 60; Glucose Random 95 mg/dL (60-115); Potassium 4.1 mmol/L (3.3-5.1); Sodium 142 mmol/L (135-145); Total Protein 5.6 g/dL (6.5-8.0)
--- NOTE | 2024-07-22 23:42 | ED.GENADULT ---
HPI - General Adult General Chief complaint: General Medical Stated complaint: abn behavior Time Seen by Provider: 07/22/24 23:37 Source: EMS Mode of arrival: EMS Limitations: altered mental status History of Present Illness ED Provider: HPI narrative: Patient has significant dementia comes here as he was kicking screaming and threatening the staff patient was seen here and discharged on 07/20/2024 for similar presentation on risperidone 0.5 mg daily as needed Related Data Home Medications ?Medication ?Instructions ?Recorded ?Confirmed acetaminophen 325 mg tablet 650 mg PO Q6H PRN Headache/Pain 02/14/24 02/14/24 (Scale Score 1-3) magnesium hydroxide 400 mg/5 mL 30 ml PO DAILY PRN Constipation 02/14/24 02/14/24 oral suspension (Milk of Magnesia) Previous Rx's ?Medication ?Instructions ?Recorded clonidine 0.1 mg/24 hr weekly 0.1 mg transdermal Tu@0900 #0 ea 02/14/24 transdermal patch miconazole nitrate 2 % topical 1 appl topical BID #0 grams 02/14/24 powder (Micro-Guard) polyethylene glycol 3350 17 gram 17 g PO DAILY #0 ea 02/14/24 oral powder packet risperidone 1 mg/mL oral solution 0.5 mg (0.5 mL) PO BID #0 mL 02/14/24 (Risperdal) risperidone 0.5 mg tablet 0.5 mg PO DAILY PRN Agitation #30 07/20/24 tabs Allergies Allergy/AdvReac Type Severity Reaction Status Date / Time No Known Allergies Allergy Verified 07/22/24 20:04 Review of Systems Review of Systems: Yes Unobtainable due to mental status PMFSH Past Medical History Medical History Hypertension Dementia with behavioral disturbance Social History Social History Household Members: Unknown / Unable to assess Housing: Unknown / Unable to assess Comment: bedside commode during daytime Patient Tobacco Use Status: Tobacco use Unknown Smoked in Last 30 Days: No Use of substances other than those prescribed or required for medical reasons: No Advance Directives: Yes Advance Directives on File: Yes Advance Directives Date on File: 05/29/24 Do you have a plan to hurt others: No Plan service: No Sexual orientation: Straight/Heterosexual Physical Exam ED Vital Signs: Vital Signs - 24 hr 07/22/24 19:49 07/22/24 20:01 07/22/24 22:16 Temperature 97.5 F 97.5 F Pulse Rate 101 H 101 H 67 Respiratory Rate 18 18 18 Blood Pressure 130/77 130/77 117/59 L Pulse Oximetry 98 98 97 Oxygen Delivery Method Room Air Room Air Room Air 07/23/24 00:12 07/23/24 02:03 07/23/24 10:33 Temperature Pulse Rate 68 85 57 Respiratory Rate 20 Blood Pressure 117/59 L 124/70 123/64 Pulse Oximetry 95 95 Oxygen Delivery Method Room Air Room Air BMI result Body Mass Index 24.9 Appearance: Sleepy No acute distress. Eyes: No pallor or icterus ENT: Pharynx normal. Oral Mucosa moist Neck: Normal inspection. Neck supple. CVS: Normal heart rate and rhythm. Pulses normal. Respiratory: No respiratory distress. Equal air entry bilateral, no wheezing/rales/rhonchi Abdomen: Soft and nontender. Bowel sounds are present, no mass palpable, no CVA tenderness Skin: Skin warm and dry. Normal skin color. Normal skin turgor. Extremities: No lower extremity edema. No calf tenderness Neuro: Severely demented sleeping moving all 4 extremities Course Course Course Narrative: Physician observation completed at 1235 on 07/23/24. Patient does not meet medical necessity for hospitalization. Patient was evaluated by CARE team and cleared for discharge. Patient also evaluated by Psychiatry Amirah [employer] who recommended adding Ativan 0.5 mg p.o. b.i.d., and giving 1 mg prior to discharge. - Ifeoma Oliveira PA-C Medical Decision Making Medical Decision Making [facility] Narrative: Patient with dementia with behavioral disturbances staff unable to manage would like to have psychiatric evaluation as patient's health proxy not cooperative will get psych and care team consult patient is signed out Dr. Hagan pending disposition Lab Data MDM Lab Attestation statement: I reviewed the patient's lab results. 07/22/24 22:55 07/22/24 22:55 Labs: Lab Results 07/22/24 Range/Units 22:55 WBC 8.0 (4.8-10.8) X10*3/uL RBC 4.26 L (4.60-5.80) X10*6/uL Hgb 13.7 L (14.0-18.0) g/dl Hct 38.7 L (42.0-52.0) % MCV 90.8 (80.0-98.0) fL MCH 32.2 (27.0-33.0) pg MCHC 35.4 (31.0-36.0) g/dl RDW 13.6 (11.0-16.0) % Plt Count 251 (160-400) X10*3/uL MPV 10.1 (9.4-12.4) fL Immature Gran % (Auto) 0.5 H (0.0-0.4) % Neut % (Auto) 69.4 (45-73) % Lymph % (Auto) 16.9 L (20-40) % [place] % (Auto) 7.8 (2-11) % Eos % (Auto) 4.6 H (0-4) % Baso % (Auto) 0.8 (0-2) % Lymph # (Auto) 1.4 (1.2-4.9) X10*3/uL [place] # (Auto) 0.6 (0.1-1.2) X10*3/uL Eos # (Auto) 0.4 (0.0-0.4) X10*3/uL Baso # (Auto) 0.1 (0.0-0.2) X10*3/uL Abs Immat Gran (auto) 0.04 H (0.00-0.03) X10*3/uL Absolute Neuts (auto) 5.6 (2.0-8.3) x10*3/uL Absolute Nucleated RBC 0.000 (0.0-0.012) X10*3/uL Nucleated RBC % (auto) 0.0 (0.0-0.2) /100WBC Sodium 142 (135-145) mmol/L Potassium 4.1 (3.3-5.1) mmol/L Chloride 115 H (96-108) mmol/L Carbon Dioxide 23 (22-29) mmol/L Anion Gap 8 L (12-20) BUN 20 H (9-16) mg/dL Creatinine 0.61 (0.5-1.4) mg/dL Estim Creat Clear Calc 79.8 Estimated GFR > 60 Random Glucose 95 (60-115) mg/dL Calcium 8.7 (8.4-10.2) mg/dL Total Bilirubin 0.3 (0.0-1.0) mg/dL AST 18 (5-37) U/L ALT 16 (0-40) U/L Alkaline Phosphatase 65 (39-117) U/L Total Protein 5.6 L (6.5-8.0) g/dL Albumin 3.3 L (3.5-5.0) g/dL Discharge Plan Discharge Clinical Impression: Dementia with behavioral disturbance Prescriptions: No Action clonidine 0.1 mg/24 hr Patch Weekly 0.1 mg transdermal Tu@0900 Qty: 0 0RF Protocol: Hold for SBP< HOLD for SBP < : 90 polyethylene glycol 3350 17 gram Powder In Packet 17 g PO DAILY Qty: 0 0RF miconazole nitrate [Micro-Guard] 2 % Powder 1 appl topical BID Qty: 0 0RF Protocol: Apply to: Apply to: affected area risperidone [Risperdal] 1 mg/mL Solution 0.5 mg PO BID Qty: 0 0RF acetaminophen 325 mg Tablet 650 mg PO Q6H PRN (Reason: Headache/Pain (Scale Score 1-3)) magnesium hydroxide [Milk of Magnesia] 400 mg/5 mL Suspension 30 ml PO DAILY PRN (Reason: Constipation) risperidone 0.5 mg Tablet 0.5 mg PO DAILY PRN (Reason: Agitation) Qty: 30 0RF Print Language: Unable To Collect
[2024-07-23 00:12] VITALS: BP 117/59; PULSE 68
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
[2024-07-23 02:03] VITALS: BP 124/70; PULSE 85; O2SAT 95
[2024-07-23 10:33] VITALS: BP 123/64; PULSE 57; RESP 20; O2SAT 95
--- NOTE | 2024-07-23 12:44 | MHC.CARE ---
Pt was seen by CARE team and does not meet inpatient level of care currently, disposition is for patient to return to LTC facility.
--- NOTE | 2024-07-23 12:58 | PHA.MEDREC ---
Addendum entered by Vinnie Topete 07/23/24 13:51: reviewed Original Note: Pharmacy Consult ? Medication Reconciliation Pharmacy has completed the medication reconciliation. Utilized list from [facility] to confirm med list.
--- NOTE | 2024-07-23 13:19 | PC.NURSE ---
Pt sleeping. resps even and unlabored. awaiting transport back to SNF
--- NOTE | 2024-07-23 13:59 | PM.PSYCN ---
History of Present Illness Date of Service: 07/23/2024 Chief Complaint: abn behavior Discussed with referring provider: Yes Sources of Information: patient interviewed, chart reviewed and crisis/core team assessment reviewed HPI Narrative: Mr. Yung is an 84 year-old male with hx of dementia. He recently was transferred to [facility] [place] [facility] [place]. He is known to this provider from times he was assessed for combative behaviors secondary to dementia. CBC with normocytic anemia (seems new). CMP with mild elevation of BUN 20, but baseline Cr 0.60, creatinine clearance of 61. No electrolyte abnormality. No UA completed. Pt seen in the ED. He is lying down, not agitated, but fidgety and confused as to where he is which is baseline for him. He denies any physical concerns. He is not able to provide much information as to events leading to this visit. He is not oriented to place, month or year, which is his baseline. Past Psychiatric History: Inpt: no OP: none Medical Evaluation Reviewed: Yes [facility] Medical History Hypertension Dementia with behavioral disturbance Family History: unknown Social History: Pt originally from [place] Diagnostics Vital Signs (24Hr): Vital Signs - 24 hr 07/22/24 19:49 07/22/24 20:01 07/22/24 22:16 Temperature 97.5 F 97.5 F Pulse Rate 101 H 101 H 67 Respiratory Rate 18 18 18 Blood Pressure 130/77 130/77 117/59 L Pulse Oximetry 98 98 97 Oxygen Delivery Method Room Air Room Air Room Air 07/23/24 00:12 07/23/24 02:03 07/23/24 10:33 Temperature Pulse Rate 68 85 57 Respiratory Rate 20 Blood Pressure 117/59 L 124/70 123/64 Pulse Oximetry 95 95 Oxygen Delivery Method Room Air Room Air BMI result Body Mass Index 24.9 Labs 07/22/24 22:55 07/22/24 22:55 Labs: Laboratory Results - last 48 hr 07/22/24 22:55 WBC 8.0 RBC 4.26 L Hgb 13.7 L Hct 38.7 L MCV 90.8 MCH 32.2 MCHC 35.4 RDW 13.6 Plt Count 251 MPV 10.1 Immature Gran % (Auto) 0.5 H Neut % (Auto) 69.4 Lymph % (Auto) 16.9 L [place] % (Auto) 7.8 Eos % (Auto) 4.6 H Baso % (Auto) 0.8 Lymph # (Auto) 1.4 [place] # (Auto) 0.6 Eos # (Auto) 0.4 Baso # (Auto) 0.1 Abs Immat Gran (auto) 0.04 H Absolute Neuts (auto) 5.6 Absolute Nucleated RBC 0.000 Nucleated RBC % (auto) 0.0 Sodium 142 Potassium 4.1 Chloride 115 H Carbon Dioxide 23 Anion Gap 8 L BUN 20 H Creatinine 0.61 Estim Creat Clear Calc 79.8 Estimated GFR > 60 Random Glucose 95 Calcium 8.7 Total Bilirubin 0.3 AST 18 ALT 16 Alkaline Phosphatase 65 Total Protein 5.6 L Albumin 3.3 L Mental Status Exam Mental Status Exam Narrative: Appearance: wearing hospital gown, good hygiene, in NAD Behavior: cooperative Psychomotor: no agitation or retardation noted Speech: more clear than before, regular rate/rhythm/volume, spontaneous TP: derailment/aphasia TC: wanting to go home Mood: okay Affect: mildly constricted SI: none HI: none VH/AH: no overt signs, confabulates Delusions: confabulation, no overt delusional content Insight/judgment: impaired x 2. Memory/cog: alert, not oriented to place, month, year or situation. severe impairments in memory/cog. 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 Yung is an 84 year-old male with hx of Advanced Dementia. He had been awaiting for group home placement recently transferred to SNF. He apparently was combative and declined risperidone and he does not have a nydia's. Medication recommendations: Continue risperidone 0.5mg po BID Start ativan 0.5mg po BID either scheduled if not overly sedating or PRN for agitation continue remeron 15mg po qhs . Total time managing care of this patient today ____ minutes.
[2024-07-23] MEDS: LORazepam 1 MG TABLET PO (14:24)
[2024-07-23 14:39] VITALS: BP 118/79; PULSE 59; RESP 18; TEMP 36.6; O2SAT 95
== END 2024-07-23 14:41 ==
PROVIDERS: Emergency Provider Internal Medicine; PCP Internal Medicine
DX: G30.9 Alzheimer's disease, unspecified (principal); F02.80 Dementia in other diseases classified elsewhere, unspecified severity, without behavioral disturbance, psychotic disturbance, mood disturbance, and anxiety; F05 Delirium due to known physiological condition; Z79.899 Other long term (current) drug therapy
CPT/HCPCS: 36415; 80053; 85025; 99284; S9485

== ENCOUNTER → 2024-07-22 20:49 | Outpatient (BNV) | payer MEDICARE, SELFPAY | PROVIDERS: Emergency Provider Internal Medicine; PCP Internal Medicine; Visit Provider Social Worker | DX: G30.9 Alzheimer's disease, unspecified (principal); F02.80 Dementia in other diseases classified elsewhere, unspecified severity, without behavioral disturbance, psychotic disturbance, mood disturbance, and anxiety | CPT/HCPCS: 99285 ==

== ENCOUNTER 2024-08-04 13:52 | Emergency (ER) | payer MEDICARE, SELFPAY ==
--- NOTE | ~2024-08-04 | CT_ITS ---
EXAMINATION: CT CERVICAL SPINE WITHOUT CONTRAST CLINICAL INFORMATION: Fall, head strike. Neck pain. COMPARISON: None available. TECHNIQUE: Spiral CT imaging of the cervical spine performed in axial plane without contrast. Multiplanar reformatted images were constructed from the axial data set. This CT examination was performed using dose optimization techniques as appropriate, variously including the following: *Automated exposure control *Adjustment of mA and/or kV according to patient size (this includes techniques or standardized protocols for targeted exams where dose is matched to indication/reason for exam; i.e. extremities or head) *Use of iterative reconstruction technique FINDINGS: CORONAL ALIGNMENT: -Normal SAGITTAL ALIGNMENT: -Normal C1-C2 AND CRANIOCERVICAL JUNCTION: -Intact and normally aligned. VERTEBRAL BODIES AND FACETS: -There are no fractures, traumatic subluxations, compression deformities, or suspicious bone lesions. -There is normal facet alignment with mild to moderate multilevel degenerative facet changes. DISCS: -Moderate to severe multilevel disc degeneration present most significant at C5-6 and C6-7. Disc vacuum phenomenon at C6-7. -Relative sparing of C2-3. CENTRAL CANAL: -No evidence of high-grade central canal narrowing or large disc herniation allowing for modality limitations. PREVERTEBRAL AND PARAVERTEBRAL SOFT TISSUES: -Normal. -Normal thyroid. -Mild to moderate bilateral carotid bulb calcification. LUNG APICES: -Paraseptal emphysematous changes and mild apical scarring. No pneumothorax. CT/CT cervical spine wo IV con IMPRESSION: 1. No CT evidence of acute cervical spine fracture or injury. 2. Moderate degenerative spondylosis. Electronically signed by: Errol Alonso MD 08/04/2024 04:33 PM EDT
--- NOTE | ~2024-08-04 | XR_ITS ---
CLINICAL HISTORY: fall Chest Radiographs, AP Comparison: 02/15/24 Findings: No cardiomegaly. Normal mediastinal contours. Low lung volumes. No pneumothorax. Bibasilar opacity. No pleural effusion. Normal upper abdomen. No acute fracture. Impression: Low lung volumes. Bibasilar opacity likely indicates atelectasis. This document has been electronically signed by: Ana Sauceda MD on 08/04/2024 18:49:29
--- NOTE | ~2024-08-04 | CT_ITS ---
EXAMINATION: CT HEAD WITHOUT CONTRAST CLINICAL INFORMATION: Fall, head strike COMPARISON: 02/14/2024. TECHNIQUE: Contiguous axial imaging was performed from the skull base to vertex without intravenous administration of contrast. This CT examination was performed using dose optimization techniques as appropriate, variously including the following: *Automated exposure control *Adjustment of mA and/or kV according to patient size (this includes techniques or standardized protocols for targeted exams where dose is matched to indication/reason for exam; i.e. extremities or head) *Use of iterative reconstruction technique FINDINGS: There is no evidence of intracranial hemorrhage or extra-axial fluid collection. There is no mass effect, or edema. No CT evidence of acute territorial infarct. Ventricles, sulci, and cisterns are normal in size and configuration for patient age. No hydrocephalus. No midline shift. Negative hyperdense MCA sign. Negative insular ribbon sign. Patchy periventricular and deep white matter hypoattenuation is consistent with moderate small vessel ischemic changes. 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 Mild atheromatous calcification of the bilateral carotid siphons and V4 segments vertebral arteries bilaterally. Globes and orbital contents image normally. There are bilateral lens replacements. No extracranial soft tissue abnormalities. The paranasal sinuses, mastoid air cells, and tympanic cavities are normally aerated. No suspicious bony abnormalities. There are no acute fractures evident. CT/CT head/brain wo IV con IMPRESSION: No acute intracranial abnormality. No acute fracture. Chronic changes as detailed. Electronically signed by: Errol Alonso MD 08/04/2024 04:28 PM EDT
--- NOTE | 2024-08-04 14:00 | ED_ITS ---
HPI - Fall General Chief Complaint: Fall Stated Complaint: PER EMS FALL X2 TIMES +HS +CCOLLAR -LOC -BT Time Seen by Provider: 08/04/24 14:00 Source: patient and RN notes reviewed Mode of arrival: ambulatory Limitations: altered mental status History of Present Illness ED Provider: Bernarda Woods PA-C HPI Narrative: This is an 84-year-old male, with a history of advanced dementia, who presents emergency department via EMS after fall. According to EMS, patient had a witnessed fall at [facility]. Per EMS, patient fell last night however did not be seen medically as there were no concerning findings per staff. They state that today, patient fell again while getting out of a chair with head strike at 1:30 a.m.. Patient was not on anticoagulation. Patient is under guardianship. Patient was a very poor historian, alert to self only. Unable to report preceding details leading him to the emergency department today. Patient reports that he was not in pain. Of note, patient was admitted February 14, 2024 and was discharged on July 20, 2024. MD complaint: fall Onset (ago): day(s) Prolonged down time: no Related Data Home Medications ?Medication ?Instructions ?Recorded ?Confirmed acetaminophen 325 mg tablet 650 mg PO Q6H PRN Headache/Pain 02/14/24 08/05/24 (Scale Score 1-3) magnesium hydroxide 400 mg/5 mL 30 ml PO DAILY PRN Constipation 02/14/24 08/05/24 oral suspension (Milk of Magnesia) bisacodyl 10 mg rectal suppository [address] DAILY PRN Constipation 07/23/24 08/05/24 sodium phosphates 19 gram-[address] DAILY PRN Constipation 07/23/24 08/05/24 gram/118 mL enema (Fleet Enema) clonidine 0.1 mg/24 hr weekly 0.1 mg transdermal TH@0900 08/05/24 08/05/24 transdermal patch divalproex 125 mg capsule,delayed 125 mg PO BID 08/05/24 08/05/24 release sprinkle (Depakote Sprinkles) melatonin 5 mg tablet 5 mg PO BEDTIME 08/05/24 08/05/24 mirtazapine 15 mg tablet (Remeron) 15 mg PO BEDTIME 08/05/24 08/05/24 Previous Rx's ?Medication ?Instructions ?Recorded polyethylene glycol 3350 17 gram 17 g PO DAILY #0 ea 02/14/24 oral powder packet cefuroxime axetil 250 mg tablet 250 mg PO BID 5 days #10 tabs 08/07/24 Allergies Allergy/AdvReac Type Severity Reaction Status Date / Time No Known Allergies Allergy Verified 08/04/24 14:12 Review of Systems 2 Review of Systems: Yes Unobtainable due to mental status Constitutional: Constitutional: Reports as per [facility] Past Medical History Medical History Hypertension Dementia with behavioral disturbance Social History Social History Household Members: Unknown / Unable to assess Housing: Unknown / Unable to assess Comment: bedside commode during daytime Patient Tobacco Use Status: Tobacco use Unknown Advance Directives Date on File: 05/29/24 service: No Sexual orientation: Straight/Heterosexual Physical Exam 2 Vital Signs: Vital Signs: Last Vital Signs Temp 97.7 F 08/07/24 10:05 Pulse 79 08/07/24 10:05 Resp 18 08/07/24 10:05 BP 144/79 H 08/07/24 10:05 Pulse Ox 99 08/07/24 10:05 O2 Del Method Room Air 08/07/24 10:05 BMI result Body Mass Index 21.1 Const: General: comfortable and awake Nutritional Appearance: average body habitus Orientation/consciousness: oriented to person Limitations: other limitations (Advanced stage dementia) HEENT: Other: Head is normocephalic atraumatic Head: Yes normal to inspection, Yes normocephalic, Yes atraumatic, No hematoma, No laceration, No occipital foramen tenderness, No palpable skull fracture, No raccoon eyes and No scalp lesion Ears: hearing grossly normal bilaterally General nose exam: Normal external nose present Face and sinus: Yes normal facial exam Mouth: Normal oral and palatal mucosa present, oropharynx normal and moist mucous membranes Throat: Yes posterior oropharynx normal Eyes: General: appearance normal, both eyes and all related structures E yelids: Yes eyelids normal Conjunctivae: conjunctivae normal Sclerae: s clerae normal Pupils: Equal, round and reactive pupils present EOM: EOMs intact bilaterally Neck: Neck: Yes normal visual inspection, Yes full ROM and Yes no lymphadenopathy Lymphatic: no lymphadenopathy noted Chest: Other: No evidence of flail chest, no ecchymosis, or hematoma noted. Chest palpation & inspection: normal inspection of the chest Resp: Effort & Inspection: normal respiratory effort and able to speak in complete sentences Auscultation: clear to auscultation bilaterally, no crackles, no rales, no rhonchi and no wheezes Cardio: Rate: regular rate Rhythm: regular rhythm Heart sounds: S1 normal heart sound present and S2 normal heart sound present GI: Other: Abdomen is soft, nontender, nondistended no ecchymosis seen. Inspection: Yes normal to inspection Skin: General skin exam: no rashes or lesions noted Trauma: no lacerations or abrasions Wounds: no wounds Neuro: Other: Patient mumbling, mumbles several words, they are not applicable to the situation. He was able to tell me his name otherwise no other words that are applicable to the situation. General: oriented to person and moves all extremities Cranial nerves: Y es Equal, round and reactive pupils present Extrem: General: Yes normal to inspection Right upper extremity: normal to inspection Left upper extremity: normal to inspection Right lower extremity: normal to inspection Left lower extremity: normal to inspection Psych: Appearance: disheveled Course Course Course Narrative: 08/05/24 16:48 Santi Patient seen by psych with some recommendations for medication adjustments. Medication recommendations ordered by brent Macario NP. Time: 09:54 Date: 08/07/24 Provider: LEN Carrillo Physician observation ended at 1000. P patient will return to [facility] via BLS. Will need to continue Ceftin for UTI x 5 more days. Reevaluation(s) Reevaluation #1: Patient attempting to get out of bed, unable to be redirected, he was on oral agitation medication as needed however multiple attempts to get out of bed. Will medicate with IM Zyprexa in the meantime. Discussed with my attending physician, Dr. Nicolas Time: 16:25 Reevaluation #2: Patient not requiring IM Zyprexa as he was been able to be redirected. Repeat troponin negative. Reached out and talk to the rehabilitation which patient currently resides at. The nurse states that patient has had increased agitation ever since he was discharged. He was admitted for many months on the [facility]. The facility had reported that they are having difficulties contacting their guardianship as it appears that guardianship is through the state. He was recommended by Psychiatry to continue on risperidone 0.5 mg twice a day, start Ativan 0.5 mg twice a day either scheduled if not overly sedating or as needed for agitation, and to continue Remeron 15 mg by mouth at night on for 2. The nurse states that they are only given a short supply and have had difficulties with having this refilled and they are unable to continue these medications as they need to contact the guardian. The nurse states that his medications are not well managed in his increased agitation is putting his harm and others at risk. Nurse states that he jumped out of the chair in very bad agitation which caused him to fall today. Given complexity of this case, he should be re-evaluated by Psychiatry to figure out the best course of action regards to medication management to help facilitate with increased agitation. Awaiting UA. Psych consult ordered. Time: 18:02 Reevaluation #3: UA still pending, psych consult still pending. Ativan 0.5 mg ordered as patient was recommended this in the past. Patient in Trendelenburg position on bed, able to be redirected however attempting to get out of bed. Ativan ordered to help relax him. We will continue to closely monitor. Chest x-ray showing low lung volumes, bibasilar opacity likely indicates atelectasis. Physician observation initiated pending psychiatric consultation and urinalysis. Additional Reevaluation(s): Time: 07:11 Date: 08/05/24 Provider: Tata Duarte, DO Patient in physician observation for psychiatric evaluation.? No acute events reported overnight. No current complaints. VS stable.? Pending psych eval. His urine is positive I did start him on ceftin. Will continue to monitor. 8:44 p.m. on September 04, patient remains physician arbs, apparently she was seen by Psychiatry earlier today, they modified some her medications. They made an addendum to the note, the Depakote should be discontinued. I just did so Time 15:57 08/06/24 - PRN ativan added and risperidone stopped per psych recommendations. physician observation continued. VS remain stable and he has been calm and cooperative all day. He is pending discharge tomorrow morning. will continue to monitor. Time: 10:05 Date: 08/07/24 Provider: Tata Duarte DO Physician observation ended at 1005am. Patient has been cleared for discharge by the psych/CM. Will follow up as an outpatient. Patient to be placed at a rehab facility. Medications Administered Discontinued Medications Generic Name Dose Route Start Last Admin Trade Name Freq PRN Reason Stop Dose Admin Cefuroxime Axetil 250 mg 08/05/24 09:00 08/07/24 10:03 Cefuroxime Axetil 250 Mg Tablet PO 08/11/24 21:01 250 mg BID JUAN PABLO Administration Clonidine 0.1 mg 08/06/24 09:00 08/06/24 09:32 Clonidine 0.1 Mg Patch.Tdwk TRANSDERMA 0.1 mg TH@0900 JUAN PABLO Administration Protocol Lorazepam 0.5 mg 08/04/24 18:37 08/04/24 19:28 Lorazepam 0.5 Mg Tablet PO 08/04/24 18:38 0.5 mg ONCE ONE Administration Lorazepam 0.5 mg 08/05/24 15:01 08/05/24 15:05 Lorazepam 0.5 Mg Tablet PO 08/05/24 15:02 0.5 mg ONCE ONE Administration Lorazepam 0.5 mg 08/06/24 15:57 08/06/24 16:08 Lorazepam 0.5 Mg Tablet PO 0.5 mg BID PRN Administration agitation Melatonin 6 mg 08/05/24 21:00 08/07/24 02:18 Melatonin 3 Mg Tablet PO Not Given BEDTIME JUAN PABLO Mirtazapine 15 mg 08/05/24 21:00 08/07/24 02:18 Mirtazapine 15 Mg Tablet PO Not Given BEDTIME JUAN PABLO Olanzapine 5 mg 08/05/24 15:01 08/05/24 15:05 Olanzapine 5 Mg Tablet PO 08/05/24 15:02 5 mg ONCE ONE Administration Polyethylene Glycol 17 gm 08/06/24 09:00 08/06/24 09:34 Polyethylene Glycol 3350 17 Gm Powd.Pack PO Not Given DAILY JUAN PABLO Risperidone 0.5 mg 08/05/24 21:00 08/06/24 09:31 Risperidone 0.5 Mg Tablet PO 0.5 mg TID JUAN PABLO Administration Medical Decision Making Medical Decision Making MDM Narrative: This is a 84-year-old male who presents emergency department via EMS from [facility] after a witnessed fall which occurred at 1:30 p.m. today. According to EMS, patient also had a fall yesterday, without any head strike, he was not medically evaluated at that time. Patient arrives with collar in place. Patient was alert to self only. Patient appears to be at his baseline per previous hospital records. Patient mumbling, stating words that do not make sense for situation. Appears to be under no acute distress Head is normocephalic atraumatic. No gross abnormality seen on examination. Given positive head strike per report, will obtain CT head and neck. We will also obtain basic labs, EKG. Physical exam and HPI extremely limited secondary to advanced dementia. When asked if he was in any pain he states no. Patient's vital signs within normal limits. We will continue to closely monitor pending workup. Differential Diagnosis Differential Diagnoses: The differential diagnosis associated with the presentation includes ICH, fall, UTI, agitation, medication noncompliance, dementia Admission/Observation Consideration of admission/observation: Escalation of care including admission/observation considered Lab Data MDM Lab Attestation statement: I reviewed the patient's lab results. No leukocytosis, stable H&H, chemistry with no significant electrolyte derangement, no evidence of SYBIL. Total protein low at 5.6, albumin 3.4, similar to previous. 08/04/24 14:34 08/04/24 14:34 Labs: Lab Results 08/04/24 08/04/24 08/04/24 Range/Units 14:34 16:48 19:29 WBC 6.9 (4.8-10.8) X10*3/uL RBC 4.40 L (4.60-5.80) X10*6/uL Hgb 14.1 (14.0-18.0) g/dl Hct 41.3 L (42.0-52.0) % MCV 93.9 (80.0-98.0) fL MCH 32.0 (27.0-33.0) pg MCHC 34.1 (31.0-36.0) g/dl RDW 13.4 (11.0-16.0) % Plt Count 244 (160-400) X10*3/uL MPV 10.4 (9.4-12.4) fL Immature Gran % (Auto) 0.6 H (0.0-0.4) % Neut % (Auto) 77.4 H (45-73) % Lymph % (Auto) 12.3 L (20-40) % Traill % (Auto) 6.8 (2-11) % Eos % (Auto) 2.3 (0-4) % Baso % (Auto) 0.6 (0-2) % Lymph # (Auto) 0.9 L (1.2-4.9) X10*3/uL Traill # (Auto) 0.5 (0.1-1.2) X10*3/uL Eos # (Auto) 0.2 (0.0-0.4) X10*3/uL Baso # (Auto) 0.0 (0.0-0.2) X10*3/uL Abs Immat Gran (auto) 0.04 H (0.00-0.03) X10*3/uL Absolute Neuts (auto) 5.4 (2.0-8.3) x10*3/uL Absolute Nucleated RBC 0.000 (0.0-0.012) X10*3/uL Nucleated RBC % (auto) 0.0 (0.0-0.2) /100WBC Sodium 139 (135-145) mmol/L Potassium 4.4 (3.3-5.1) mmol/L Chloride 106 (96-108) mmol/L Carbon Dioxide 27 (22-29) mmol/L Anion Gap 10 L (12-20) BUN 17 H (9-16) mg/dL Creatinine 0.68 (0.5-1.4) mg/dL Estim Creat Clear Calc 82.1 Estimated GFR > 60 Random Glucose 93 (60-115) mg/dL Calcium 9.0 (8.4-10.2) mg/dL Magnesium 2.1 (1.6-2.6) mg/dL Total Bilirubin 0.3 (0.0-1.0) mg/dL Direct Bilirubin 0.1 (0.0-0.5) mg/dL AST 18 (5-37) U/L ALT 21 (0-40) U/L Alkaline Phosphatase 72 (39-117) U/L Troponin I High Sens < 2.7 2.7 (<3.5-35.0) ng/L Total Protein 5.6 L (6.5-8.0) g/dL Albumin 3.4 L (3.5-5.0) g/dL Urine Color Yellow Urine Appearance Clear Urine pH 7.0 (5.0-9.0) Ur Specific [place] 1.020 (1.005-1.025) Urine Protein Negative (Neg-Trace) mg/dL Urine Glucose (UA) Negative (Negative) mg/dL Urine Ketones 15 (Negative) mg/dL Urine Blood Negative (Negative) Urine Nitrite Positive H (Negative) Ur Leukocyte Esterase Large (3+) H (Negative) Urine RBC 0-2 (0-2) /HPF Urine WBC >50 H (0-5) /HPF Ur Squamous Epith Cells 0-2 (0-2) /HPF Urine Bacteria 4+ (None Seen) Hyaline Casts 0-2 (0-2) /LPF Influenza Type A (PCR) NEGATIVE (Negative) Influenza Type B (PCR) NEGATIVE (Negative) RSV RNA Qual (PCR) NEGATIVE (Negative) SARS-CoV-2 RNA (RT-PCR) NEGATIVE (Negative) Radiology Impression Discussion of test interpretation with radiology: I have reviewed the radiologist's reading. Radiologist Impression: CLINICAL HISTORY: fall Chest Radiographs, AP Comparison: 02/15/24 Findings: No cardiomegaly. Normal mediastinal contours. Low lung volumes. No pneumothorax. Bibasilar opacity. No pleural effusion. Normal upper abdomen. No acute fracture. Impression: Low lung volumes. Bibasilar opacity likely indicates atelectasis. This document has been electronically signed by: Ana Sauceda MD on 08/04/2024 18:49:29 Dictated By: Ana Huang MD Signed By: <Electronically signed by Ana Huang MD in OV> 08/04/24 0520 Discharge Plan Discharge Clinical Impression: Alzheimer dementia with behavioral disturbance, Acute UTI Patient Disposition: [facility] Transfer Details: [facility] Instructions: Urinary Tract Infection in Men (DC), Alzheimer Disease (DC) Additional Instructions: You have a UTI. Continue Ceftin for 5 more days Continue other home prescribed medications and new medication recommendations. Follow up with her outpatient prescribers Prescriptions: New cefuroxime axetil 250 mg tablet 250 mg PO BID 5 Days Qty: 10 0RF No Action bisacodyl 10 mg Suppository [address] DAILY PRN (Reason: Constipation) Rx Instructions: If no BM for 8 hours after M.O.M Fleet Enema 19-7 gram/118 mL Enema [address] DAILY PRN (Reason: Constipation) Rx Instructions: (Step 3) If no BM for 8 hours after Bisacodyl Supp. polyethylene glycol 3350 17 gram Powder In Packet 17 g PO DAILY Qty: 0 0RF acetaminophen 325 mg Tablet 650 mg PO Q6H PRN (Reason: Headache/Pain (Scale Score 1-3)) magnesium hydroxide [Milk of Magnesia] 400 mg/5 mL Suspension 30 ml PO DAILY PRN (Reason: Constipation) Rx Instructions: (Step 1) If no BM for 3 days divalproex [Depakote Sprinkles] 125 mg Capsule, Delayed Rel Sprinkle 125 mg PO BID mirtazapine [Remeron] 15 mg Tablet 15 mg PO BEDTIME melatonin 5 mg Tablet 5 mg PO BEDTIME clonidine 0.1 mg/24 hr patch weekly 0.1 mg transdermal TH@0900 Protocol: Hold for SBP< HOLD for SBP < : 90 Referrals: [facility] [Outside] Interventions: ED Discharge Assessment Last Done: 08/07/24 10:05 Discharge Date/Time: 08/07/24 10:07 Print Language: Unable To Collect
[2024-08-04 14:05] VITALS: BP 122/66; BP 154/70; PULSE 60; PULSE 72; RESP 16; TEMP 36.8; O2SAT 97; BMI 21.1
--- NOTE | 2024-08-04 14:13 | ECG_ITS ---
Test Reason : FALL Blood Pressure : */* mmHG Vent. Rate : 67 BPM Atrial Rate : 67 BPM P-R Int : 174 ms QRS Dur : 98 ms QT Int : 408 ms P-R-T Axes : 95 44 59 degrees QTcB Int : 431 ms Normal sinus rhythm Normal ECG No previous ECGs available Referred By: Bernarda Woods Electronically Signed By: MEG KILGORE MD
--- NOTE | 2024-08-04 14:33 | PC.NURSE ---
Labs drawn and sent for analysis. Awaiting results.
[2024-08-04 14:39] LABS: MANUAL DIFF FLAG NO
[2024-08-04 14:40] LABS: Basophils Percent Auto 0.6 % (0-2); Eosinophils Absolute Auto 0.2 X10*3/uL (0.0-0.4); Eosinophils Percent Auto 2.3 % (0-4); Hematocrit 41.3 % (42.0-52.0); Hemoglobin 14.1 g/dl (14.0-18.0); Imm Gran Abs Auto 0.04 X10*3/uL (0.00-0.03); Imm Gran Pct Auto 0.6 % (0.0-0.4); Lymphocytes Absolute Auto 0.9 X10*3/uL (1.2-4.9); Lymphocytes Percent Auto 12.3 % (20-40); Mean Corpuscular HGB Conc 34.1 g/dl (31.0-36.0); Mean Corpuscular Volume 93.9 fL (80.0-98.0); Mean Platelet Volume 10.4 fL (9.4-12.4); Monocytes Absolute Auto 0.5 X10*3/uL (0.1-1.2); Monocytes Percent Auto 6.8 % (2-11); Neutrophils Absolute Auto 5.4 x10*3/uL (2.0-8.3); Neutrophils Percent Auto 77.4 % (45-73); Platelet Count 244 X10*3/uL (160-400); Red Cell Distribution Width 13.4 % (11.0-16.0); White Blood Count 6.9 X10*3/uL (4.8-10.8)
[2024-08-04 15:03] LABS: Alanine Aminotransferase 21 U/L (0-40); Albumin Level 3.4 g/dL (3.5-5.0); Anion Gap 10 (12-20); Aspartate Amino Transferase 18 U/L (5-37); Bilirubin Direct 0.1 mg/dL (0.0-0.5); Bilirubin Total 0.3 mg/dL (0.0-1.0); Blood Urea Nitrogen 17 mg/dL (9-16); Carbon Dioxide 27 mmol/L (22-29); Chloride 106 mmol/L (96-108); Creatinine Clr Calc Pharmacy 82.1; Estimated Glomerular Filt Rate > 60; Glucose Random 93 mg/dL (60-115); Magnesium 2.1 mg/dL (1.6-2.6); Potassium 4.4 mmol/L (3.3-5.1); Sodium 139 mmol/L (135-145); Total Protein 5.6 g/dL (6.5-8.0)
[2024-08-04 15:04] LABS: Troponin-I High Sensitivity < 2.7 ng/L (<3.5-35.0)
[2024-08-04 15:18] LABS: Influenza A PCR NEGATIVE (Negative); Influenza B PCR NEGATIVE (Negative); Resp Syncy Virus RNA Qual PCR NEGATIVE (Negative); SARS COV2 PCR INHOUSE NEGATIVE (Negative)
[2024-08-04 16:42] VITALS: BP 152/84; PULSE 81; RESP 14; TEMP 36.6; O2SAT 96
[2024-08-04 17:11] LABS: Troponin-I High Sensitivity 2.7 ng/L (<3.5-35.0)
[2024-08-04 17:32] LABS: Alkaline Phosphatase 72 U/L (39-117)
--- OUTSIDE RECORDS SUMMARY | 2024-08-04 17:44 | XMS_ITS | Clinical Summary ---
Author Organization [facility] Address [address] [place] [address] Phone Care Team Providers Care Ex Chef Name Role Phone AutomaticallyONE, SignedONE Unavailable [phone] Conditions or Problems Problem Name Problem Code Onset Date Status Entry Date Provider Comment Standard Description Annotate ELEVATED LIVER ENZYMES 539774505 (SNOMED CT) 06/25 Active 06/25 Chiki Christianson DO Liver enzymes level above reference range BENIGN OBSTRUCTIVE JAUNDICE 87816835 (SNOMED CT) 06/25 Active 06/25 Chiki Christianson DO Obstructive hyperbilirubinem ia ACUTE GANGRENOUS CHOLECYSTITI S 19599497 (SNOMED CT) 06/10 Inactive 06/19 Harriett Burnard TRAUMA COUNSELLOR Acute gangrenous cholecystitis ACUTE GANGRENOUS CHOLECYSTITI S 99754442 (SNOMED CT) 06/10 Inactive 06/19 Harriett Burnard TRAUMA COUNSELLOR Acute gangrenous cholecystitis Medications Medication Instructions Start Date Stop Date Generic Name ND Provider ROXICODONE 5 MG ORAL TABLET one po q4hrs prn pain- no drinking or drivng while on ain meds 8 OXYCODONE HCL 42251327199 Jamel Kate MD ROXICODONE 5 MG ORAL TABLET one po q4hrs prn pain- no drinking or drivng while on ain meds 8 OXYCODONE HCL 58909507544 Jamel Kate MD Medications Administered No information [...] Procedures Code Procedure Name Date Entry Date [id number] Patient encounter procedure [id number] Patient encounter procedure Vital Signs Date Name [...]
--- NOTE | 2024-08-04 17:45 | PC.NURSE ---
Spoke with [facility] regarding this patient. Recently hospitalized [facility] [place] ~5 [facility], was on Rispiridone during that time, but was discharged without any medications to manage his aggression/agitation. PVR reports increased agitation and aggression, with hitting, spitting, and yelling at staff. Currently, patient has sitter while in ED, but pt is continuously trying to get out of bed unassisted and needs frequent redirection. At this time, is not aggressive. Pt has advanced stage dementia/alzheimers. LEN Covarrubias also spoke with [facility] alongside this RN. Awaiting results and will update facility with plan once plan is determined. Care ongoing by this RN.
[2024-08-04] MEDS: LORazepam 0.5 MG TABLET PO (19:28)
[2024-08-04 19:35] VITALS: BP 170/91; PULSE 106; RESP 18; TEMP 37.1; O2SAT 94
[2024-08-04 19:35] LABS: Appearance Urine Clear; Color Urine Yellow; Glucose Urine UA Negative (Negative); Leukocyte Esterase Urine Large (3+) (Negative); Nitrite Urine Positive (Negative); UMIC TRIGGER UACC YES; Urine Blood Negative (Negative); Urine Ketones 15 mg/dL (Negative); Urine Protein Negative (Neg-Trace)
[2024-08-04 19:50] LABS: Bacteria Urine 4+ (None Seen); Hyaline Casts Urine 0-2 /LPF (0-2); RBC Urine 0-2 /HPF (0-2); Squamous Epithelial Cell Urine 0-2 /HPF (0-2); UACC Culture Trigger YES; WBC Urine >50 /HPF (0-5)
--- NOTE | 2024-08-05 06:24 | PC.NURSE ---
attempted pt vitals but was uncooperative, pt stating he's cold given warm blanket and reattempted vitals but pt still refusing because he's cold. pt resting in bed quietly, sitter remains in place.
--- NOTE | 2024-08-05 08:05 | MHC.EDTECH ---
@0803 CALL RETURNED FROM HEM/ONC @ [facility] DR KOJO NÚÑEZ [phone], DR VUONG TAKES OVER CALL
--- NOTE | 2024-08-05 08:10 | MHC.EDTECH ---
Patient refused the vitals and patient care RN aware.
[2024-08-05] MEDS: cefuroxime axetiL 250 MG TABLET PO ×2 (09:54→21:54)
--- NOTE | 2024-08-05 10:00 | MHC.EDTECH ---
Patient is aggressive and uncooperative with me to do his vitals KUN brewer
--- NOTE | 2024-08-05 13:58 | PC.NURSE ---
Call received from Shital at [facility] inquiring about an update on Pt. Brief review completed and advised Pt is still awaiting consult at this time. Per Shital, Pts Guardianship often responds well to emails if looking to get in touch. Several minutes later, Pts Guardian calls ED. Guardian is Sita Katelynn and she can be reached at [phone] Call placed to [facility] of Case Management to discuss Pts case and pass long information.
--- NOTE | 2024-08-05 14:00 | MHC.EDTECH ---
Patient got his Lunch, 1:1 feed
[2024-08-05] MEDS: OLANZapine 5 MG TABLET PO (15:05)
[2024-08-05] MEDS: LORazepam 0.5 MG TABLET PO (15:05)
[2024-08-05 15:40] VITALS: BP 133/74; PULSE 88; RESP 16; O2SAT 95
--- NOTE | 2024-08-05 15:51 | PHA.MEDREC ---
Addendum entered by Harriett Goff RPh 08/05/24 16:19: [facility] reviewed Original Note: Pharmacy Consult ? Medication Reconciliation Pharmacy has completed the medication reconciliation. Utilized list from [facility] to confirm med list.
--- NOTE | 2024-08-05 15:58 | PM.PSYCN ---
History of Present Illness Date of Service: 08/05/2024 Chief Complaint: PER EMS FALL X2 TIMES +HS +CCOLLAR -LOC -BT Discussed with referring provider: Yes Sources of Information: patient interviewed, chart reviewed and crisis/core team assessment reviewed HPI Narrative: Mr. Yung is an 84 year-old male with hx of advanced dementia, chairbound, usually not ambulatory. He was brought via EMS due to witnessed fall. He apparently was also more combative. In the ED, pt found to have a UTI. He was started on ceftin. CBC normocytic anemia. CMP without electrolyte abnormality. BUN slightly elevated 17, Cr 0.68, creatinine clearance 86. Pt is known to this telegraphic typewriter operator chief through consults while he was on the medical floor awaiting for placement. For the most part, behaviorally, pt was in good control. He was discharged on risperidone 0.5mg po BID and remeron 15mg po qhs. Pt seen in the ED. He is not oriented to place, situation nor month nor year. He is attempting to sit up straight but currently in [place] position to prevent him from rolling out of stretcher. He extends his arms to this telegraphic typewriter operator chief to assist him to sit up. He appears somewhat restless, more than his usual. He was given IM olanzapine and ativan for agitation. Past Psychiatric History: Inpt: no OP: none PMFSH Medical History Hypertension Dementia with behavioral disturbance Family History: unknown Social History: Pt originally from [place]. Diagnostics Vital Signs (24Hr): Vital Signs - 24 hr 08/04/24 16:42 08/04/24 19:35 08/05/24 15:40 Temperature 97.8 F 98.8 F Pulse Rate 81 106 H 88 Respiratory Rate 14 18 16 Blood Pressure 152/84 H 170/91 H 133/74 Pulse Oximetry 96 94 95 Oxygen Delivery Method Room Air Room Air Room Air BMI result Body Mass Index 21.1 Labs 08/04/24 14:34 08/04/24 14:34 Labs: Laboratory Results - last 48 hr 08/04/24 08/04/24 08/04/24 14:34 16:48 19:29 WBC 6.9 RBC 4.40 L Hgb 14.1 Hct 41.3 L MCV 93.9 MCH 32.0 MCHC 34.1 RDW 13.4 Plt Count 244 MPV 10.4 Immature Gran % (Auto) 0.6 H Neut % (Auto) 77.4 H Lymph % (Auto) 12.3 L Hyde % (Auto) 6.8 Eos % (Auto) 2.3 Baso % (Auto) 0.6 Lymph # (Auto) 0.9 L Hyde # (Auto) 0.5 Eos # (Auto) 0.2 Baso # (Auto) 0.0 Abs Immat Gran (auto) 0.04 H Absolute Neuts (auto) 5.4 Absolute Nucleated RBC 0.000 Nucleated RBC % (auto) 0.0 Sodium 139 Potassium 4.4 Chloride 106 Carbon Dioxide 27 Anion Gap 10 L BUN 17 H Creatinine 0.68 Estim Creat Clear Calc 82.1 Estimated GFR > 60 Random Glucose 93 Calcium 9.0 Magnesium 2.1 Total Bilirubin 0.3 Direct Bilirubin 0.1 AST 18 ALT 21 Alkaline Phosphatase 72 Troponin I High Sens < 2.7 2.7 Total Protein 5.6 L Albumin 3.4 L Urine Color Yellow Urine Appearance Clear Urine pH 7.0 Ur Specific Wells 1.020 Urine Protein Negative Urine Glucose (UA) Negative Urine Ketones 15 Urine Blood Negative Urine Nitrite Positive H Ur Leukocyte Esterase Large (3+) H Urine RBC 0-2 Urine WBC >50 H Ur Squamous Epith Cells 0-2 Urine Bacteria 4+ Hyaline Casts 0-2 Influenza Type A (PCR) NEGATIVE Influenza Type B (PCR) NEGATIVE RSV RNA Qual (PCR) NEGATIVE SARS-CoV-2 RNA (RT-PCR) NEGATIVE Imaging Radiology Impressions: ITS Impressions Cervical Spine CT 08/04/24 14:13 IMPRESSION: 1. No CT evidence of acute cervical spine fracture or injury. 2. Moderate degenerative spondylosis. Electronically signed by: Errol Alonso MD 08/04/2024 04:33 PM EDT RP Head CT 08/04/24 14:13 IMPRESSION: No acute intracranial abnormality. No acute fracture. Chronic changes as detailed. Electronically signed by: Errol Alonso MD 08/04/2024 04:28 PM EDT RP Mental Status Exam Mental Status Exam Narrative: Pt in bed, attempting to get out of bed. Speech with aphasia at baseline. Not oriented to place, month, year or situation, also baseline. Attentions seems worse than baseline suggesting underlying delirium. Medications Medications Current Medications Cefuroxime Axetil (Cefuroxime Axetil 250 Mg Tablet) 250 mg PO BID JUAN PABLO Stop: 08/11/24 21:01 Last Admin: 08/05/24 09:54 Dose: 250 mg Risperidone (Risperidone 0.5 Mg Tablet) 0.5 mg PO BID JUAN PABLO Allergies Allergies Allergy/AdvReac Type Severity Reaction Status Date / Time No Known Allergies Allergy Verified 08/04/24 14:12 Assessment & Plan Assessment & Plan (1) Alzheimer dementia with behavioral disturbance: Status: Acute Code(s): G30.9 - Alzheimer's disease, unspecified; F02.818 - Dementia in other diseases classified elsewhere, unspecified severity, with other behavioral disturbance Plan Mr. Yung is an 84 year-old male with hx of advanced dementia who recently transition to SNF. He was brought after witnessed fall. He is usually not ambulatory. In the ED, he was found to have a UTI and started on ceftin. He appears more restless and impaired attention suggestive of delirium in addition to underlying dementia. PLAN 1. No inpt level of care recommended. 2. In terms of medication adjustment can increase risperidone to 0.5mg po TID. can also add ativan 0.5mg po BID prn agitation 3. restart remeron 15mg po qhs. 4. If need IM for severe agitation can use low dose of olanzapine 2.5mg q6h with ativan. Remember that oversedation may not be seen at the moment but following day, prolonging delirium (impaired sleep/awake cycle, dehydration due to sedation). 5. While pt is boarding in the ED- maintain adequate hydration/nutrition, attempt to sit him in charisse chair, avoid oversedation if IM needed for combative behaviors. 6. manage hypertension and resume home meds while boarding in the ED for more than 24hrs. Total time managing care of this patient today ____ minutes.
--- NOTE | 2024-08-05 18:04 | MHC.CM.ED ---
Addendum entered by Jo Gonzales 08/05/24 18:36: Conservator working on MH application. MS is NOT active at this time. Pt has Medicare and [employer]. Addendum entered by Jo Gonzales 08/05/24 18:26: Pt eating chopped regular diet. Needs to be fed. According to Medical record and conservator, pt has funds to private pay for LTC for 2 months. Original Note: CM received consult. Medical record reviewed, as patient has advanced dementia. Alert to name only. Attempting to get OOB. Pt is essentially chair bound. D/C to LTC at [facility] on 07/20/2024. Fell x2 at [facility]. Pt has aphasia. Non-sensible speaking. Pt was admitted [place] [facility] from 05/08-07/20/2024. Pt has guardian and conservator-Sita Lynnwood ([phone]), office [employer] [phone]). Guardian is aware of patient falls and boarder status in ED pending psych evaluation. Pt seen by Amirah Gomez oncology account specialist. No IPLOC. ? delirium secondary to UTI. Made med recommendations. Provider aware. Meds ordered. Pt has UTI and started on antibiotics 08/05. No IM injections given. They were ordered, but not given. Pt did have po meds for anxiety. CM will reach out to facility in the morning regarding return to facility if no behaviors and IM medications necessary. D/C plan: return to LTC facility.
--- NOTE | 2024-08-05 18:40 | MHC.EDTECH ---
Patient feed dinner
[2024-08-05 18:42] VITALS: BP 156/87; PULSE 94; RESP 16; TEMP 36.2; O2SAT 94
--- NOTE | 2024-08-05 20:46 | PC.NURSE ---
assumed care of the patient at 1900.
--- NOTE | 2024-08-05 22:01 | PC.NURSE ---
attempted to give pt meds in applesauce however patient spit everything out except for the antibiotic which was given first. spit out risperidone and remeron.
[2024-08-06 00:02] VITALS: BP 165/97; PULSE 97; RESP 20; TEMP 36.4; O2SAT 98
--- NOTE | 2024-08-06 05:47 | PC.NURSE ---
pt had uneventful night. slept quietly and did not attempt to jump out of bed. respirations even and unlabored, sitter continues at bedside.
--- NOTE | 2024-08-06 08:25 | MHC.CM.ED ---
Addendum entered by Cathi Baeza 08/06/24 09:15: [facility] 1130[facility]. Ankit GIRON booked. [facility] with chart. Patient, Little TRISTAN and Radha HARRINGTON aware. Attempted to notify patient's guardian, Sita, via telephone at [phone]. Left voicemail with d/c info. Original Note: Patient remains in ER. Clinical updates sent to [facility]. Waiting to hear if patient can d/c back to facility. Continue to monitor for d/c needs.
[2024-08-06] MEDS: risperiDONE 0.5 MG TABLET PO (09:31)
[2024-08-06] MEDS: cloNIDine 0.1 MG PATCH.TDWK TRANSDERMA (09:32)
[2024-08-06] MEDS: cefuroxime axetiL 250 MG TABLET PO (09:32)
--- NOTE | 2024-08-06 09:50 | MHC.CM.ED ---
Received notification from [facility] that patient is unable to return on anti-psychotic medications due to having a guardianship. It appears guardianship was ordered on 07/08/2024. Raul's Order [address] date is scheduled for 09/25. Patient was d/c'd from [facility] to [facility] on 07/20. Patient has not received any risperidone since being d/c'd from [facility]. This info was relayed to Camila Love CM Director. Attempted to speak with patient's guardian, Sita Pace, via telephone at [phone]. Left voicemail requesting return telephone call. Also sent an email requesting a telephone call. Continue to monitor for d/c needs.
[2024-08-06 12:37] VITALS: BP 108/59; PULSE 87; RESP 19; O2SAT 97
--- NOTE | 2024-08-06 13:14 | PC.NURSE ---
pt sleeping, no behavioral issues today. took medications (except for miralax) with pudding, crushed.
--- NOTE | 2024-08-06 13:32 | MHC.CM.ED ---
Spoke with Nita of Sita Pace's office. Nita verified Raul's [address] date scheduled for 09/25. Spoke with Amirah regulatory affairs internship. Risperidone will be d/cd. Ativan will be ordered. [facility]. Above information provided. If patient does not require IM medication overnight, patient will return to [facility] via BLS on 08/07 at 10am. Patient, Little TRISTAN and Radha aware. Continue to monitor for d/c needs.
[2024-08-06] MEDS: LORazepam 0.5 MG TABLET PO (16:08)
[2024-08-06 16:20] VITALS: BP 160/84; PULSE 93; RESP 18; O2SAT 95
--- NOTE | 2024-08-06 18:45 | MHC.EDTECH ---
He ate his dinner 100% 1:1 feed.
[2024-08-06 19:03] VITALS: BP 142/92; PULSE 100; RESP 16; O2SAT 95
--- NOTE | 2024-08-07 02:05 | PC.NURSE ---
pt trying to get out of bed, transfer to hospital bed for comfort. bed alarm on, camera in place. pt requesting food, pudding provided at this time
[2024-08-07 02:21] VITALS: BP 152/87; PULSE 82; RESP 20; O2SAT 97
[2024-08-07] MEDS: cefuroxime axetiL 250 MG TABLET PO ×2 (02:27→10:03)
--- NOTE | 2024-08-07 02:55 | PC.NURSE ---
abx delayed, pt resting comfortably in bed with eye closed breathing even and unlabored. no apparent distress, did not want to disturb pt. admin once pt was alert.
[2024-08-07 07:18] VITALS: BP 142/84; PULSE 87; RESP 18; TEMP 36.5; O2SAT 98
--- NOTE | 2024-08-07 07:52 | PC.NURSE ---
Pt resting quietly in room; camera in room for pt safety; night RN states pt did not receive any IM medications or require restraints of any kind throughout the shift
--- NOTE | 2024-08-07 08:21 | MHC.CM.ED ---
Patient remains in ER. No issues overnight. [facility] S transport booked for 10am. Patient, Elsie TRISTAN and Ifeoma HARRINGTON aware. Attempted to reach patient's guardian, Sita, via telephone at [phone]. Left voicemail with discharge info. Continue to monitor for d/c needs.
[2024-08-07 10:05] VITALS: BP 144/79; PULSE 79; RESP 18; TEMP 36.5; O2SAT 99
== END 2024-08-07 10:07 | disposition skilled nursing facility (03) ==
PROVIDERS: Physician Assistant Medical; Emergency Provider Emergency Medicine; PCP Internal Medicine
DX: N39.0 Urinary tract infection, site not specified (principal); G30.9 Alzheimer's disease, unspecified; F02.811 Dementia in other diseases classified elsewhere, unspecified severity, with agitation; I10 Essential (primary) hypertension; Z79.899 Other long term (current) drug therapy; Z91.81 History of falling; Z03.818 Encounter for observation for suspected exposure to other biological agents ruled out
CPT/HCPCS: 0241U; 36415; 70450; 71045; 72125; 80048; 80076; 81001; 83735; 84484; 85025; 87086; 87088; 87186; 93005; 99285

== ENCOUNTER → 2024-08-04 14:13 | Outpatient (BNV) | payer MEDICARE, SELFPAY | PROVIDERS: Emergency Provider Emergency Medicine; PCP Internal Medicine; Visit Provider Internal Medicine Cardiovascular Disease | DX: F02.818 Dementia in other diseases classified elsewhere, unspecified severity, with other behavioral disturbance (principal); W19.XXXA Unspecified fall, initial encounter | CPT/HCPCS: 93010 ==

== ENCOUNTER → 2024-08-04 14:13 | Outpatient (BNV) | payer MEDICARE, SELFPAY | PROVIDERS: Emergency Provider Emergency Medicine; PCP Internal Medicine; Visit Provider Radiology Diagnostic Radiology | DX: M47.892 Other spondylosis, cervical region (principal); S00.93XA Contusion of unspecified part of head, initial encounter; J98.11 Atelectasis | CPT/HCPCS: 70450; 72125 ==

== ENCOUNTER → 2024-08-04 14:23 | Outpatient (BNV) | payer MEDICARE, SELFPAY | PROVIDERS: Emergency Provider Emergency Medicine; PCP Internal Medicine; Visit Provider Social Worker | DX: G30.9 Alzheimer's disease, unspecified (principal); F02.818 Dementia in other diseases classified elsewhere, unspecified severity, with other behavioral disturbance | CPT/HCPCS: 99285 ==

== ENCOUNTER 2024-08-17 10:51 | Inpatient (IN) | payer MEDICARE, SELFPAY ==
[2024-08-17] VITALS (12 sets, daily range): BP systolic 117–180; BP diastolic 66–91; PULSE 87–130; RESP 18–36; TEMP 36.4–39.3; O2SAT 83–100; BMI 20.9; BMI 21.8
--- NOTE | 2024-08-17 | ECG_ITS ---
Test Reason : dyspnea Blood Pressure : */* mmHG Vent. Rate : 120 BPM Atrial Rate : 120 BPM P-R Int : 146 ms QRS Dur : 80 ms QT Int : 312 ms P-R-T Axes : 69 36 77 degrees QTcB Int : 440 ms Sinus tachycardia Otherwise normal ECG When compared with ECG of 04-Aug-2024 14:27, Vent. rate has increased by 53 bpm Referred By: Generic ED Physician Electronically Signed By: Steven Leigh
--- NOTE | ~2024-08-17 | CT_ITS ---
EXAMINATION: CT HEAD WITHOUT CONTRAST CLINICAL INFORMATION: Altered mental status. COMPARISON: None available. TECHNIQUE: Contiguous axial imaging was performed from the skull base to vertex without intravenous administration of contrast. This CT examination was performed using dose optimization techniques as appropriate, variously including the following: *Automated exposure control *Adjustment of mA and/or kV according to patient size (this includes techniques or standardized protocols for targeted exams where dose is matched to indication/reason for exam; i.e. extremities or head) *Use of iterative reconstruction technique FINDINGS: There is no evidence of intracranial hemorrhage or extra-axial fluid collection. There is no mass effect, or edema. No CT evidence of acute territorial infarct. Ventricles, sulci, and cisterns are diffusely somewhat prominent in keeping with age related cerebral and cerebellar involutional changes. 23No hydrocephalus. No midline shift. Negative hyperdense MCA sign. Negative insular ribbon sign. Patchy periventricular and deep white matter hypoattenuation is consistent with moderate small vessel ischemic changes. Normal pituitary. Mild atheromatous calcification of the bilateral carotid siphons and V4 segments vertebral arteries bilaterally. Globes and orbital contents image normally. There are bilateral lens replacements. No extracranial soft tissue abnormalities. The paranasal sinuses, mastoid air cells, and tympanic cavities are normally aerated. No suspicious bony abnormalities. There are no acute fractures evident. CT/CT head/brain wo IV con IMPRESSION: No acute intracranial abnormality. Electronically signed by: Errol Alonso MD 08/17/2024 12:11 PM EDT
--- NOTE | ~2024-08-17 | CT_ITS ---
EXAMINATION: CT ABDOMEN AND PELVIS WITHOUT CONTRAST CLINICAL INFORMATION: Fever, left lower quadrant pain. Altered mental status. COMPARISON: None available. TECHNIQUE: Multidetector volumetric imaging was performed from the superior aspect of the liver through the pubic symphysis. Sagittal and coronal reformatted images were obtained on the technologist's workstation. This CT examination was performed using dose optimization techniques as appropriate, variously including the following: *Automated exposure control *Adjustment of mA and/or kV according to patient size (this includes techniques or standardized protocols for targeted exams where dose is matched to indication/reason for exam; i.e. extremities or head) *Use of iterative reconstruction technique FINDINGS: There is respiratory motion in the upper half of the examination, limiting sensitivity. Examination is also limited without the benefit of IV contrast. LUNG BASES: Refer to the dedicated chest CT performed concurrently. LIVER, GALLBLADDER, AND BILIARY TREE: Motion degraded. The unenhanced liver is normal in size, shape, and attenuation. No focal hepatic lesion or biliary ductal dilatation is present. The gallbladder is surgically absent. PANCREAS: Motion degraded. Moderate fatty atrophy. No lesions. SPLEEN: Motion degraded. Normal. ADRENAL GLANDS: Motion degraded. There is left hyperplasia. KIDNEYS AND URETERS: The kidneys are normal in size, shape, and attenuation. No hydronephrosis, hydroureter, or calculi seen. No perinephric stranding. BLADDER: Poorly distended, however grossly normal. GASTROINTESTINAL TRACT: There are no acute findings. There is moderate diverticulosis of the descending and sigmoid colon. There is no acute inflammation. There is moderate stool burden seen throughout the colon, and within the rectum. Findings consistent with constipation. Small bowel is normal in caliber and course. No acute finding within the confines signs of motion artifact. Normal appendix. ABDOMINAL WALL: There has been prior right inguinal hernia repair. LYMPH NODES: None enlarged by size criteria. VASCULAR: Extensive calcific atheromatous disease of the arterial structures. There is no aortic aneurysm. PELVIC VISCERA: There is moderate prostate enlargement with central calcifications. Prostate measures 4.4 cm in diameter. OSSEOUS STRUCTURES: No suspicious lytic or blastic bone lesions. Osteopenia. There are degenerative changes throughout the spine, in the SI joints, and involving both hip joints. CT/CT abdomen pelvis wo IV con IMPRESSION: 1. Limited examination due to moderate motion degradation. 2. No acute inflammatory abnormality in the abdomen or pelvis. 3. Constipation/obstipation. 4. Cholecystectomy. 5. Colonic diverticulosis without evidence of acute diverticulitis. 6. Additional ancillary findings as discussed in the body of the report. Also, refer to the dedicated chest CT performed concurrently. Electronically signed by: Errol Alonso MD 08/17/2024 12:26 PM EDT
--- NOTE | ~2024-08-17 | XR_ITS ---
EXAMINATION: XR CHEST CLINICAL INFORMATION: fever, hypoxia COMPARISON: 08/04/2024. TECHNIQUE: Frontal view of the chest was obtained. FINDINGS: The cardiac, hilar, and mediastinal contours are normal. Aortic mural calcification. There is pulmonary hyperaeration and likely underlying COPD. Chronic left basilar scarring with mildly elevated hemidiaphragm. There are patchy opacities left mid and lower lung suspicious for pneumonia. There is no definite effusion or pneumothorax. No focal osseous or soft tissue abnormality. XR/XR chest 1V IMPRESSION: There is parenchymal opacity in the left mid and lower lung suspicious for pneumonia. Electronically signed by: Errol Alonso MD 08/17/2024 11:44 AM EDT
--- NOTE | ~2024-08-17 | CT_ITS ---
EXAMINATION: CT CHEST WITHOUT CONTRAST CLINICAL INFORMATION: Hypoxia, fever,? Aspiration. COMPARISON: Chest x-ray dated earlier same day. TECHNIQUE: Multidetector volumetric CT imaging of the chest was done. Axial MIP volume rendering provided. Sagittal and coronal reformatted images were obtained. This CT examination was performed using dose optimization techniques as appropriate, variously including the following: *Automated exposure control *Adjustment of mA and/or kV according to patient size (this includes techniques or standardized protocols for targeted exams where dose is matched to indication/reason for exam; i.e. extremities or head) *Use of iterative reconstruction technique FINDINGS: LUNGS: Moderate respiratory motion degradation, limiting evaluation and sensitivity. There is paraseptal emphysema, moderate in severity. There are bullous changes in the lateral right lower lobe. There are consolidative opacities throughout the left lower lobe, involving the lingula and posterior left upper lobe, and involving the subpleural right lower lobe. Findings are in keeping with aspiration pneumonitis. There is no pleural effusion or pneumothorax. The small airways are not thickened. The central airways appear patent. MEDIASTINUM: The thyroid is diminutive in appearance. There are small nonpathologically enlarged lymph nodes in the mediastinum. There is no mass or pathologic lymphadenopathy. The aorta is ectatic with moderate atheromatous calcification. There is no aneurysm. The main pulmonary artery is mildly prominent. The heart size is normal. There is no pericardial effusion. The esophagus has a normal appearance. CORONARY ARTERY CALCIFICATION: Moderate to heavy calcifications. PLEURA: There is no pleural effusion. No pleural mass or thickening. AXILLA/CHEST WALL: No masses or lymphadenopathy. UPPER ABDOMEN: Refer to the dedicated CT abdomen pelvis. OSSEOUS STRUCTURES: There is osteopenia. There is no suspicious lytic or blastic bone lesion. No definite fractures within the confines of respiratory motion artifact. There are mild degenerative changes throughout the spine. There is a right convex mild thoracic scoliosis. CT/CT chest wo IV con IMPRESSION: 1. Examination limited by moderate respiratory motion artifact. 2. Moderate to severe paraseptal emphysema with bullous changes in the right lower lobe. 3. Extensive consolidative opacities throughout the left lower lobe, involving the lingula and posterior left upper lobe, involving the subpleural right lower lobe. Findings are keeping with focal pneumonitis, with aspiration within the differential. 4. There is no effusion or pneumothorax. 5. Ancillary findings as discussed in the body of the report. Electronically signed by: Errol Alonso MD 08/17/2024 12:19 PM EDT
--- NOTE | 2024-08-17 11:21 | ED_ITS ---
HPI - General Adult General Chief complaint: Dyspnea Stated complaint: OK @ [facility],NOW ALTERED,88% RA @SNF,93% ON 10L,+UTI Time Seen by Provider: 08/17/24 11:15 Source: EMS, RN notes reviewed and old records reviewed Mode of arrival: other Limitations: altered mental status History of Present Illness ED Provider: Ifeoma Oliveira PA-C HPI narrative: 84-year-old male with a past medical history HTN, dementia with behavioral disturbance presenting to the ED via EMS from SNF due to AMS and hypoxia noted to be 83% on RA TAPING FOREMAN. Per EMS patient woke up at baseline, and was then noted to be altered and hypoxic s/p eating. Patient placed on non-rebreather at 10L satting 93%. Baseline not on O2. Patient is combative at baseline. Remaining history limited due to patient's acute mental status Related Data Home Medications ?Medication ?Instructions ?Recorded ?Confirmed acetaminophen 325 mg tablet 650 mg PO Q6H PRN Headache/Pain 02/14/24 08/05/24 (Scale Score 1-3) magnesium hydroxide 400 mg/5 mL 30 ml PO DAILY PRN Constipation 02/14/24 08/05/24 oral suspension (Milk of Magnesia) bisacodyl 10 mg rectal suppository 10 mg IL DAILY PRN Constipation 07/23/24 08/05/24 sodium phosphates 19 gram-7 118 ml IL DAILY PRN Constipation 07/23/24 08/05/24 gram/118 mL enema (Fleet Enema) clonidine 0.1 mg/24 hr weekly 0.1 mg transdermal TH@0900 08/05/24 08/05/24 transdermal patch divalproex 125 mg capsule,delayed 125 mg PO BID 08/05/24 08/05/24 release sprinkle (Depakote Sprinkles) melatonin 5 mg tablet 5 mg PO BEDTIME 08/05/24 08/05/24 mirtazapine 15 mg tablet (Remeron) 15 mg PO BEDTIME 08/05/24 08/05/24 Previous Rx's ?Medication ?Instructions ?Recorded polyethylene glycol 3350 17 gram 17 g PO DAILY #0 ea 02/14/24 oral powder packet cefuroxime axetil 250 mg tablet 250 mg PO BID 5 days #10 tabs 08/07/24 Allergies Allergy/AdvReac Type Severity Reaction Status Date / Time No Known Allergies Allergy Verified 08/17/24 11:07 Review of Systems 2 Review of Systems: Yes all other systems are reviewed and are negative Constitutional: Constitutional: Reports as per [facility] Past Medical History Attestation statement: The following information was validated with the patient. Source: old records reviewed Medical History Hypertension Dementia with behavioral disturbance Social History Social History Household Members: Unknown / Unable to assess Housing: Unknown / Unable to assess Comment: bedside commode during daytime Patient Tobacco Use Status: Tobacco use Unknown Advance Directives: Yes Advance Directives on File: Yes Advance Directives Date on File: 05/29/24 Do you have a plan to hurt others: No Plan service: No Sexual orientation: Straight/Heterosexual Physical Exam ED Vital Signs: Vital Signs - 24 hr 08/17/24 11:05 08/17/24 12:13 08/17/24 12:57 Temperature 102.7 F H 100.4 F 99.9 F Pulse Rate 122 H 102 H 99 Respiratory Rate 22 H 24 H 20 Blood Pressure 142/71 H 147/75 H 141/66 H Pulse Oximetry 96 97 100 Oxygen Delivery Method Non-Rebreather Mask Non-Rebreather Mask Non-Rebreather Mask Oxygen Flow Rate 10 10 08/17/24 13:15 08/17/24 13:26 Temperature 99.8 F 99.7 F Pulse Rate 91 95 Respiratory Rate 20 18 Blood Pressure 127/71 135/66 Pulse Oximetry 99 100 Oxygen Delivery Method Non-Rebreather Mask Non-Rebreather Mask Oxygen Flow Rate 10 10 BMI result Body Mass Index 20.9 Const General: cooperative, healthy appearing and no acute distress Limitations: no limitations HENMT Head: Yes normal to inspection and Yes atraumatic Ears: hearing grossly normal bilaterally General nose exam: Normal external nose present Face and sinus: Yes normal facial exam Eyes General: appearance normal, both eyes and all related structures EOM: EOMs intact bilaterally Neck Neck: Yes normal visual inspection and Yes no meningeal signs Resp Effort & Inspection: normal respiratory effort, no respiratory distress and tachypneic Auscultation: diminished lung sounds diffuse Cardio Rate: regular rate and tachycardic Heart sounds: S1 normal heart sound present and S2 normal heart sound present GI Inspection: Yes normal to inspection Palpation (GI): Soft to palpation, Tenderness to palpation present (GI) in the LLQ; with no rebound tenderness, no guarding and not rigid Skin Rashes: no rashes Wounds: no wounds Neuro General: tone normal and no meningeal signs Extrem General: Yes normal to inspection Course Course Course Narrative: -1230--lactic acidosis of 4.4. Troponin 67.9 > will obtain repeat -viral testing negative -30% bands XR chest 1V IMPRESSION: There is parenchymal opacity in the left mid and lower lung suspicious for pneumonia. CT head/brain wo IV con IMPRESSION: No acute intracranial abnormality. CT chest wo IV con IMPRESSION: 1. Examination limited by moderate respiratory motion artifact. 2. Moderate to severe paraseptal emphysema with bullous changes in the right lower lobe. 3. Extensive consolidative opacities throughout the left lower lobe, involving the lingula and posterior left upper lobe, involving the subpleural right lower lobe. Findings are keeping with focal pneumonitis, with aspiration within the differential. 4. There is no effusion or pneumothorax. 5. Ancillary findings as discussed in the body of the report. CT abdomen pelvis wo IV con IMPRESSION: 1. Limited examination due to moderate motion degradation. 2. No acute inflammatory abnormality in the abdomen or pelvis. 3. Constipation/obstipation. 4. Cholecystectomy. 5. Colonic diverticulosis without evidence of acute diverticulitis. 6. Additional ancillary findings as discussed in the body of the report. Also, refer to the dedicated chest CT performed concurrently. -1349--mild SYBIL with a BUN of 40, creatinine 1.46. -UA infected 08/17/24 1349 LEN Carrillo - focused exam performed > plan to admit for further management Medications Administered Discontinued Medications Generic Name Dose Route Start Last Admin Trade Name Freq PRN Reason Stop Dose Admin Acetaminophen 1,000 mg in 100 mls @ 400 mls/hr 08/17/24 11:21 08/17/24 11:44 Ofirmev IV 08/17/24 11:35 Infused ONCE ONE Infusion Piperacillin Sod/Tazobactam 50 mls @ 100 mls/hr 08/17/24 11:23 08/17/24 11:59 Sod 3.375 gm/ Sodium Chloride IV 08/17/24 11:52 Infused ONCE ONE Infusion Sodium Chloride 1,000 mls @ 999 mls/hr 08/17/24 11:30 08/17/24 12:58 Ns IV 08/17/24 12:30 Infused .Q1H1M JUAN PABLO Infusion Sodium Chloride 1,000 mls @ 999 mls/hr 08/17/24 12:00 08/17/24 12:59 Ns IV 08/17/24 13:00 Infused .Q1H1M JUAN PABLO Infusion Medical Decision Making Medical Decision Making MDM Narrative: 84-year-old male with a past medical history HTN, dementia with behavioral disturbance presenting to the ED via EMS from SNF due to AMS and hypoxia noted to be 83% on RA TAPING FOREMAN. On exam tachycardic, tachypneic, febrile to 102.7, 96% on non-rebreather, diminished lung sounds throughout, abdomen is soft with LLQ ttp. Concern for aspiration vs viral illness vs pneumonia vs intra-abdominal pathology vs ICH vs encephalopathy vs UTI. Lower suspicion for ICH, fractures Plan: EKG, labs, UA, CXR, head CT, +/- CT abdomen/pelvis, UA, empiric IV antibiotics, admission Please refer to course for remaining clinical decision making, interpretation of labs/imaging results, and discussions with consultants and/or family members. Differential Diagnosis Differential Diagnoses: The differential diagnosis associated with the presentation includes As above Admission/Observation Consideration of admission/observation: Escalation of care including admission/observation considered Consult Healthcare Provider Management of the patient was discussed with: Hospitalist Lab Data [facility] Lab Attestation statement: I reviewed the patient's lab results. 08/17/24 11:18 08/17/24 12:25 Labs: Lab Results 08/17/24 08/17/24 08/17/24 Range/Units 11:18 11:23 11:24 WBC 11.0 H (4.8-10.8) X10*3/uL RBC 5.44 D (4.60-5.80) X10*6/uL Hgb 17.2 D (14.0-18.0) g/dl Hct 51.5 D (42.0-52.0) % MCV 94.7 (80.0-98.0) fL MCH 31.6 (27.0-33.0) pg MCHC 33.4 (31.0-36.0) g/dl RDW 13.1 (11.0-16.0) % Plt Count 192 (160-400) X10*3/uL MPV 11.0 (9.4-12.4) fL Immature Gran % (Auto) Cancelled Neut % (Auto) Cancelled Lymph % (Auto) Cancelled [place] % (Auto) Cancelled Eos % (Auto) Cancelled Baso % (Auto) Cancelled Lymph # (Auto) Cancelled [place] # (Auto) Cancelled Eos # (Auto) Cancelled Baso # (Auto) Cancelled Abs Immat Gran (auto) Cancelled Absolute Neuts (auto) Cancelled Absolute Nucleated RBC 0.020 H (0.0-0.012) X10*3/uL Nucleated RBC % (auto) 0.2 (0.0-0.2) /100WBC Neutrophils % (Manual) 58 (45-73) % Band Neutrophils % 30 H (3-5) % Lymphocytes % (Manual) 6 L (20-40) % Monocytes % (Manual) 6 (2-11) % Abs Neuts (Manual) 9.7 H (2.0-8.3) X10*3/uL Lymphocytes # (Manual) 0.7 L (1.2-4.9) X10*3/uL Monocytes # (Manual) 0.7 (0.1-1.2) X10*3/uL Toxic Vacuolation PRESENT Platelet Estimate NORMAL (NORMAL) Large Platelets PRESENT Plt Morphology Comment NOTED RBC Morphology NOTED Polychromasia 1+ (0-2) /OIF Macrocytosis 1+ (5-14) /OIF PT 15.5 H (10.9-12.4) SEC INR 1.3 H (0.9-1.1) VBG pH 7.45 H (7.32-7.43) VBG pCO2 30 mmHg VBG pO2 43 mmHg VBG HCO3 21 L (22-26) mmol/L VBG O2 Saturation 71.0 % VBG Base Excess -0.9 mmol/L Sodium (135-145) mmol/L Potassium (3.3-5.1) mmol/L Chloride (96-108) mmol/L Carbon Dioxide (22-29) mmol/L Anion Gap (12-20) BUN (9-16) mg/dL Creatinine (0.5-1.4) mg/dL Estim Creat Clear Calc Estimated GFR Random Glucose (60-115) mg/dL Lactic Acid 4.4 H* (0.5-2.0) mmol/L Calcium (8.4-10.2) mg/dL Magnesium (1.6-2.6) mg/dL Total Bilirubin (0.0-1.0) mg/dL AST (5-37) U/L ALT (0-40) U/L Alkaline Phosphatase (39-117) U/L Ammonia 32 (13-55) umol/L Troponin I High Sens 67.9 H D (<3.5-35.0) ng/L B-Natriuretic Peptide 191 H (<100) pg/mL Total Protein (6.5-8.0) g/dL Albumin (3.5-5.0) g/dL Lipase (8-78) U/L Urine Color Urine Appearance Urine pH (5.0-9.0) Ur Specific [place] (1.005-1.025) Urine Protein (Neg-Trace) mg/dL Urine Glucose (UA) (Negative) mg/dL Urine Ketones (Negative) mg/dL Urine Blood (Negative) Urine Nitrite (Negative) Ur Leukocyte Esterase (Negative) Urine RBC (0-2) /HPF Urine WBC (0-5) /HPF Ur Squamous Epith Cells (0-2) /HPF Urine Bacteria (None Seen) Hyaline Casts (0-2) /LPF Influenza Type A (PCR) NEGATIVE (Negative) Influenza Type B (PCR) NEGATIVE (Negative) RSV RNA Qual (PCR) NEGATIVE (Negative) SARS-CoV-2 RNA (RT-PCR) NEGATIVE (Negative) 08/17/24 08/17/24 Range/Units 12:13 12:25 WBC (4.8-10.8) X10*3/uL RBC (4.60-5.80) X10*6/uL Hgb (14.0-18.0) g/dl Hct (42.0-52.0) % MCV (80.0-98.0) fL MCH (27.0-33.0) pg MCHC (31.0-36.0) g/dl RDW (11.0-16.0) % Plt Count (160-400) X10*3/uL MPV (9.4-12.4) fL Immature Gran % (Auto) Neut % (Auto) Lymph % (Auto) Warrick % (Auto) Eos % (Auto) Baso % (Auto) Lymph # (Auto) [place] # (Auto) Eos # (Auto) Baso # (Auto) Abs Immat Gran (auto) Absolute Neuts (auto) Absolute Nucleated RBC (0.0-0.012) X10*3/uL Nucleated RBC % (auto) (0.0-0.2) /100WBC Neutrophils % (Manual) (45-73) % Band Neutrophils % (3-5) % Lymphocytes % (Manual) (20-40) % Monocytes % (Manual) (2-11) % Abs Neuts (Manual) (2.0-8.3) X10*3/uL Lymphocytes # (Manual) (1.2-4.9) X10*3/uL Monocytes # (Manual) (0.1-1.2) X10*3/uL Toxic Vacuolation Platelet Estimate (NORMAL) Large Platelets Plt Morphology Comment RBC Morphology Polychromasia /OIF Macrocytosis /OIF PT (10.9-12.4) SEC INR (0.9-1.1) VBG pH (7.32-7.43) VBG pCO2 mmHg VBG pO2 mmHg VBG HCO3 (22-26) mmol/L VBG O2 Saturation % VBG Base Excess mmol/L Sodium 152 H (135-145) mmol/L Potassium 4.1 (3.3-5.1) mmol/L Chloride 116 H (96-108) mmol/L Carbon Dioxide 21 L (22-29) mmol/L Anion Gap 19 (12-20) BUN 40 H (9-16) mg/dL Creatinine 1.46 H (0.5-1.4) mg/dL Estim Creat Clear Calc 33.7 Estimated GFR 46 Random Glucose 142 H (60-115) mg/dL Lactic Acid (0.5-2.0) mmol/L Calcium 8.9 (8.4-10.2) mg/dL Magnesium 2.1 (1.6-2.6) mg/dL Total Bilirubin 1.1 H (0.0-1.0) mg/dL AST 47 H (5-37) U/L ALT 34 (0-40) U/L Alkaline Phosphatase 73 (39-117) U/L Ammonia (13-55) umol/L Troponin I High Sens (<3.5-35.0) ng/L B-Natriuretic Peptide (<100) pg/mL Total Protein 5.7 L (6.5-8.0) g/dL Albumin 3.0 L (3.5-5.0) g/dL Lipase 7 L (8-78) U/L Urine Color [place] A Urine Appearance Cloudy Urine pH 5.0 (5.0-9.0) Ur Specific [place] 1.025 (1.005-1.025) Urine Protein 100 (2+) H (Neg-Trace) mg/dL Urine Glucose (UA) Negative (Negative) mg/dL Urine Ketones Trace (Negative) mg/dL Urine Blood Large (3+) H (Negative) Urine Nitrite Positive H (Negative) Ur Leukocyte Esterase Small (1+) H (Negative) Urine RBC >20 H (0-2) /HPF Urine WBC 11-20 H (0-5) /HPF Ur Squamous Epith Cells 6-10 (0-2) /HPF Urine Bacteria None Seen (None Seen) Hyaline Casts 11-20 (0-2) /LPF Influenza Type A (PCR) (Negative) Influenza Type B (PCR) (Negative) RSV RNA Qual (PCR) (Negative) SARS-CoV-2 RNA (RT-PCR) (Negative) Independent Interpretation I performed an independent interpretation of an: EKG, Plain X-Ray and CT Scan Radiology Impression Discussion of test interpretation with radiology: I have reviewed the radiologist's reading. Independent Historian Clinical information obtained from an independent historian. History obtained from or confirmed by: EMS External Record Review External record reviewed: Inpatient record, Office record, Outpatient record, Prior outpatient labs, Prior outpatient radiology, Primary care record and Outside ED record Tests considered The following testing was considered but not selected: As above Prescription Management I considered prescription management with: Antibiotic and Other Chronic Conditions Patient?s care impacted by: Other (Dementia) Social Determinants Patient?s care significantly limited by Social Determinants of Health including: Other Social Determinant of Health Critical Care Time Critical Care Time Critical Care Time: Yes Total Critical Care Time: 50 Attestation: I have personally provided critical care time exclusive of time spent on separately billable procedures. Time includes review of lab data, radiology results, discussion with consultants, and monitoring for potential decompensation. Intervention performed as documented. Discharge Plan Discharge Clinical Impression: Aspiration pneumonia Patient Disposition: Admitted As Inpatient Print Language: Unable To Collect
[2024-08-17 11:27] LABS: Hematocrit 51.5 % (42.0-52.0); Hemoglobin 17.2 g/dl (14.0-18.0); Mean Corpuscular HGB Conc 33.4 g/dl (31.0-36.0); Mean Corpuscular Hemoglobin 31.6 pg (27.0-33.0); Mean Corpuscular Volume 94.7 fL (80.0-98.0); NRBC Pct Auto 0.2 /100WBC (0.0-0.2); Platelet Count 192 X10*3/uL (160-400); Red Blood Count 5.44 X10*6/uL (4.60-5.80); Red Cell Distribution Width 13.1 % (11.0-16.0)
[2024-08-17] MEDS: Piperacillin Sodium/Tazobactam 3.375 GM in 0.9 % Sodium Chloride 50 ML IV ×3 (11:29→23:42)
[2024-08-17] MEDS: Acetaminophen 1,000 MG/100 ML PIGGYBACK 400 MG IV (11:29)
[2024-08-17 11:30] LABS: Venous Blood Gas Refer to POC result
[2024-08-17 11:31] LABS: VBG Base Excess -0.9 mmol/L; VBG HCO3 21 mmol/L (22-26); VBG pCO2 30 mmHg; VBG pH 7.45 (7.32-7.43); VBG pO2 43 mmHg
[2024-08-17 11:38] LABS: INTERNATIONAL NORM RATIO 1.3 (0.9-1.1); Prothrombin Time 15.5 SEC (10.9-12.4)
[2024-08-17 11:42] LABS: Ammonia 32 umol/L (13-55)
[2024-08-17 11:49] LABS: B Type Natriuretic Peptide 191 pg/mL (<100)
[2024-08-17 11:55] LABS: Lactic Acid 4.4 mmol/L (0.5-2.0)
[2024-08-17] MEDS: 0.9 % Sodium Chloride 1,000 ML 999 ML IV ×2 (11:56→11:57)
--- NOTE | 2024-08-17 11:57 | PC.NURSE ---
pt returned from CT at this time. critical lab value - lactic of 4.4. LEN Dia notified/aware. sepsis workup initiated. IVF bolus infusing at this time. pt otherwise remains arousable to phsyical stimuli only. not answering questions/following commands appropriately. tachycardic. hypotensive. pt remains on 10L via nonrebreather at this time. wob noted. pt remains in upright position to promote patent airway. plan if care ongoing.
[2024-08-17 12:00] LABS: Troponin-I High Sensitivity 67.9 ng/L (<3.5-35.0); WBC ABN SCTR FOR CBC 1
[2024-08-17 12:15] LABS: Influenza A PCR NEGATIVE (Negative); Influenza B PCR NEGATIVE (Negative); Resp Syncy Virus RNA Qual PCR NEGATIVE (Negative); SARS COV2 PCR INHOUSE NEGATIVE (Negative)
--- NOTE | 2024-08-17 12:16 | PC.NURSE ---
16fr temp sensing winter w/ 10ml balloon inserted at this time. 25ml of cloudy, dark norma, foul smelling urine noted immediately post output. pt tolerated insertion well. specimen obtained/sent to lab. IVF continues to infuse at this time.
[2024-08-17 12:40] LABS: Neutrophils Percent Manual 58 % (45-73)
[2024-08-17 12:42] LABS: Band Neutrophils Percent 30 % (3-5); Lymphocytes Percent Manual 6 % (20-40); Monocytes Percent Manual 6 % (2-11)
[2024-08-17 12:47] LABS: Alanine Aminotransferase 34 U/L (0-40); Alkaline Phosphatase 73 U/L (39-117); Anion Gap 19 (12-20); Aspartate Amino Transferase 47 U/L (5-37); Bilirubin Total 1.1 mg/dL (0.0-1.0); Blood Urea Nitrogen 40 mg/dL (9-16); Calcium 8.9 mg/dL (8.4-10.2); Carbon Dioxide 21 mmol/L (22-29); Chloride 116 mmol/L (96-108); Creatinine Clr Calc Pharmacy 33.7; Estimated Glomerular Filt Rate 46; Glucose Random 142 mg/dL (60-115); Lipase 7 U/L (8-78); Magnesium 2.1 mg/dL (1.6-2.6); Potassium 4.1 mmol/L (3.3-5.1); Sodium 152 mmol/L (135-145); Total Protein 5.7 g/dL (6.5-8.0)
[2024-08-17 12:48] LABS: Macrocytosis 1+ (5-14) /OIF; Polychromasia 1+ (0-2) /OIF; RBC Morphology NOTED; Toxic Vacuolation PRESENT
[2024-08-17 12:49] LABS: Platelet Estimate NORMAL (NORMAL)
[2024-08-17 12:50] LABS: Large Platelet PRESENT; Lymphocytes Absolute Manual 0.7 X10*3/uL (1.2-4.9); Monocytes Absolute Manual 0.7 X10*3/uL (0.1-1.2); Neutrophils Absolute Manual 9.7 X10*3/uL (2.0-8.3); Platelet Morphology Comment NOTED
[2024-08-17 13:03] LABS: Appearance Urine Cloudy; Color Urine Orange; Glucose Urine UA Negative (Negative); Leukocyte Esterase Urine Small (1+) (Negative); Nitrite Urine Positive (Negative); Specific Gravity - Urine 1.025 (1.005-1.025); UMIC TRIGGER UACC YES; Urine Blood Large (3+) (Negative); Urine Ketones Trace mg/dL (Negative); Urine Protein 100 (2+) mg/dL (Neg-Trace)
[2024-08-17 13:04] LABS: Bacteria Urine None Seen (None Seen); RBC Urine >20 /HPF (0-2); UACC Culture Trigger YES
[2024-08-17 13:25] LABS: Reflex Lactate? Lactic Acid Added
--- NOTE | 2024-08-17 13:42 | PC.NURSE ---
repeat troponin/lactic obtained/sent to lab.
--- OUTSIDE RECORDS SUMMARY | 2024-08-17 14:02 | XMS_ITS | Clinical Summary ---
Author Organization [address] [facility] Address [address] [place] [address] Phone Care Team Providers Care Editor In Chief Name Role Phone Thania Whittington NP Primary Care Provider [phone] Encounters Date Type Department Care Team Description 08/11/2024 Lab Requisition [facility] - Main Lab [address] [facility] [employer] [place] [address] Thania Whittington NP Essential (primary) hypertension; Adult failure to thrive; Alzheimer's disease, unspecified (CODE) (CMS/[facility] V24, CMS/[facility] V28) from Last 3 Months Social History Tobacco Use Types Packs/Day Years Used Date Smoking Tobacco: Never Assessed Sex and Gender Information Value Date Recorded Sex Assigned at Not on file Legal Sex Male 9:49 AM EDT Gender Identity Not on file Sexual Orientation Not on file Plan of Treatment Health Maintenance Due Date Last Done Comments DTaP,Tdap,and Td Vaccines (1 - Tdap) 1960 Pneumococcal Vaccine: 50+ Ye ars (1 of 1 - PCV) 1991 Zoster Vaccines (1 of 2) 1991 RSV Immunization Adult Patie nts (1 - 1-dose 75+ series) 2016 COVID-19 Vaccine ( - 2023-2 5 season) 2023 Cholesterol Screening (Lipid Panel) 08/12/2024 Depression Screening 08/12/2024 Falls Risk Assessment 08/12/2024 Medicare Annual Wellness Visit 08/12/2024 Social Influencers of Health Screening 08/12/2024 Influenza Vaccine (Season Ended) 2024 Hypertension/CHF/CAD Annual BMP Blood Test 08/11/2025 08/11/2024 HIB Vaccines Aged Out No longer eligi ble based on patient's age to complete this topic HPV Vaccines Aged Out No longer eligi ble based on patient's age to complete this topic Hepatitis A Vaccines Aged Out No long er eligible based on patient's age to complete this topic Hepatitis B Vaccines Aged Out No long er eligible based on patient's age to complete this topic IPV Vaccines Aged Out No longer eligi ble based on patient's age to complete this topic MMR Vaccines Aged Out No longer eligi ble based on patient's age to complete this topic Meningococcal ACWY Vaccine Aged Out N o longer eligible based on patient's age to complete this topic Meningococcal B Vaccine Aged Out No l onger eligible based on patient's age to complete this topic RSV Immunization Patients Un andrew 20 months Aged Out No longer eligible b ased on patient's age to complete this topic Varicella Vaccines Aged Out No longer eligible based on patient's age to complete this topic Procedures Procedure Name Priority Date/Time Associated Diagnosis Comments FOLATE Routine 08/11/2024 7:42 AM EDT Essential (primary) hypertension Adult failure to thrive Alzheimer's disease, unspecified (CODE) (CMS/HCC V24, CMS/HCC V28) VITAMIN B12 Routine 08/11/2024 7:42 AM EDT Essential (primary) hypertension Adult failure to thrive Alzheimer's disease, unspecified (CODE) (CMS/HCC V24, CMS/HCC V28) THYROID STIMULATING HORMONE Routine 08/11/2024 7:42 AM EDT Essential (primary) hypertension Adult failure to thrive Alzheimer's disease, unspecified (CODE) (CMS/HCC V24, CMS/HCC V28) BASIC METABOLIC PANEL Routine 08/11/2024 7:42 AM EDT Essential (primary) hypertension Adult failure to thrive Alzheimer's disease, unspecified (CODE) (CMS/HCC V24, CMS/HCC V28) COMPLETE BLOOD COUNT Routine 08/11/2024 7:42 AM EDT Essential (primary) hypertension Adult failure to thrive Alzheimer's disease, unspecified (CODE) (CMS/HCC V24, CMS/HCC V28) from Last 3 Months Results * Complete blood count (08/11/2024 7:42 AM EDT) WBC 9.0 4.8 - 10.8 K/[facility] LAB HEMETOLOGY METHOD 08/11/2024 10:27 AM [facility] RBC 4.50 4.50 - 5.50 M/[facility] LAB HEMETOLOGY METHOD 08/11/2024 10:27 AM [facility] Hemoglobin 14.3 13.5 - 17.5 g/dL LAB HEMETOLOGY METHOD 08/11/2024 10:27 AM [facility] Hematocrit 43.3 42.0 - 54.0 % LAB HEMETOLOGY METHOD 08/11/2024 10:27 AM [facility] MCV 95.4 79.0 - 98.0 FL LAB HEMETOLOGY METHOD 08/11/2024 10:27 AM [facility] MCH 31.5 27.0 - 32.0 pcg LAB HEMETOLOGY METHOD 08/11/2024 10:27 AM [facility] MCHC 33.0 32.0 - 37.0 g/dL LAB HEMETOLOGY METHOD 08/11/2024 10:27 AM [facility] RDW 13.2 11.0 - 15.0 % LAB HEMETOLOGY METHOD 08/11/2024 10:27 AM [facility] Platelets 235 130 - 400 K/[facility] LAB HEMETOLOGY METHOD 08/11/2024 10:27 AM [facility] MPV 10.9 7.0 - 11.0 FL LAB HEMETOLOGY METHOD 08/11/2024 10:27 AM [facility] NRBC 0.0 <1.0 % LAB HEMETOLOGY METHOD 08/11/2024 10:27 AM [facility] NRBC Absolute 0.00 <0.10 K/[facility] LAB HEMETOLOGY METHOD 08/11/2024 10:27 AM [facility] Blood Venous blood specimen / Unknown Venipuncture / Unknown 08/11/2024 7:42 AM EDT 08/11/2024 9:54 AM EDT us Thania Whittington LAB BLOOD ORDERABLES Final Resul t Performing Organization Address [facility] Co de Phone Number [facility] [address] [place] [address], [place] [phone] * Thyroid stimulating hormone (08/11/2024 7:42 AM EDT) TSH 2.49 0.40 - 4.00 mcIU/mL LAB CHEMISTRY METHOD 08/11/2024 1:01 PM EDT [facility] Blood Venous blood specimen / Unknown Venipuncture / Unknown 08/11/2024 7:42 AM EDT 08/11/2024 9:54 AM EDT us Thania Whittington LAB BLOOD ORDERABLES Final Resul t Performing Organization Address [facility] Co de Phone Number [facility] [address] [place] [address], [place] [phone] * Folate (08/11/2024 7:42 AM EDT) Pathologist [facility] Folate 7.7 2.8 - 17.0 ng/ml LAB CHEMISTRY METHOD 08/11/2024 11:44 AM EDT [facility] Blood Venous blood specimen / Unknown Venipuncture / Unknown 08/11/2024 7:42 AM EDT 08/11/2024 9:54 AM EDT Thania [facility] LAB BLOOD ORDERABLES Final Resul t Performing Organization Address City/[facility]/ZIP Co de Phone Number [facility] [address] [place] [address], [place] [phone] * Vitamin B12 (08/11/2024 7:42 AM EDT) [facility] Vitamin B-12 363 250 - 900 pcg/mL LAB CHEMISTRY METHOD 08/11/2024 11:44 AM [facility] Blood Venous blood specimen / Unknown Venipuncture / Unknown 08/11/2024 7:42 AM EDT 08/11/2024 9:54 AM EDT Thania Whittington STORE COORDINATOR LAB BLOOD ORDERABLES Final Resul t [facility] [address] [place] [address], * (ABNORMAL) Basic metabolic panel (08/11/2024 7:42 AM EDT) [facility] Sodium 142 133 - 145 mmol/L LAB CHEMISTRY METHOD 08/11/2024 11:22 AM [facility] Potassium 3.9 3.5 - 5.5 mmol/L LAB CHEMISTRY METHOD 08/11/2024 11:22 AM [facility] Chloride 108 96 - 110 mmol/L LAB CHEMISTRY METHOD 08/11/2024 11:22 AM [facility] CO2 29 21 - 32 mmol/L LAB CHEMISTRY METHOD 08/11/2024 11:22 AM [facility] Anion Gap 5 3 - 11 LAB CHEMISTRY METHOD 08/11/2024 11:22 AM [facility] Glucose 93 70 - 100 mg/dL LAB CHEMISTRY METHOD 08/11/2024 11:22 AM [facility] BUN 23 5 - 25 mg/dL LAB CHEMISTRY METHOD 08/11/2024 11:22 AM [facility] Creatinine 0.62(L) 0.70 - 1.30 mg/dL LAB CHEMISTRY METHOD 08/11/2024 11:22 AM [facility] eGFR 95 >=60 mL/min/1. 73m2 LAB CHEMISTRY METHOD 08/11/2024 11:22 AM EDT [facility] Comment:Calculation based on the??Chronic Kidney Disease Epidemiology Collaboration (CKD-EPI) equation refit??without adjustment for race. BUN/Creatinine Ratio 37.1 LAB CHEMISTRY METHOD 08/11/2024 11:22 AM EDT [facility] Calcium 9.3 8.5 - 10.5 mg/dL LAB CHEMISTRY METHOD 08/11/2024 11:22 AM EDT [facility] Blood Venous blood specimen / Unknown Venipuncture / Unknown 08/11/2024 7:42 AM EDT 08/11/2024 9:54 AM EDT us Thania Whittington STORE COORDINATOR LAB BLOOD ORDERABLES Final Resul t [facility] [address] [place] [address], from Last 3 Months Insurance MEDICAID - [place] Care Teams Editor In Chief Relationship Specialty Start Date End Date Thania Whittington NP [address] [place] [address] PCP - General Nurse Practitioner 08/11/24
--- OUTSIDE RECORDS SUMMARY | 2024-08-17 14:02 | XMS_ITS | Encounter Summary ---
Author Organization [employer] Address [address] [place] [address] Care Team Providers Care Director Of Restaurant Name Role Phone Thania Whittington NP Primary Care Provider Encounter Details Date Type Department Care Team (Late st Contact Info) Description 08/11/2024 Lab Requisition [facility] - Main Lab [address] [facility] [place] [address] Thania Whittington NP [address] [place] [address] Essential (primary) hypertension; Adult failure to thrive; Alzheimer's disease, unspecified (CODE) (CMS/[facility] V24, CMS/[facility]ER[facility] V28) Social History Tobacco Use Types Packs/Day Years Used Date Smoking Tobacco: Never Assessed Sex and Gender Information Value Date Recorded Sex Assigned at Not on file Legal Sex Male 9:49 AM EDT Gender Identity Not on file Sexual Orientation Not on file documented as of this encounter Plan of Treatment Not on file documented as of this encounter Procedures Procedure Name Priority Date/Time Associated Diagnosis Comments COMPLETE BLOOD COUNT Routine 08/11/2024 7:42 AM EDT Essential (primary) hypertension Adult failure to thrive Alzheimer's disease, unspecified (CODE) (CMS/HCC V24, CMS/HCC V28) THYROID STIMULATING HORMONE Routine 08/11/2024 7:42 AM EDT Essential (primary) hypertension Adult failure to thrive Alzheimer's disease, unspecified (CODE) (CMS/HCC V24, CMS/HCC V28) FOLATE Routine 08/11/2024 7:42 AM EDT Essential (primary) hypertension Adult failure to thrive Alzheimer's disease, unspecified (CODE) (CMS/HCC V24, CMS/HCC V28) VITAMIN B12 Routine 08/11/2024 7:42 AM EDT Essential (primary) hypertension Adult failure to thrive Alzheimer's disease, unspecified (CODE) ([facility] V24, [facility] V28) BASIC METABOLIC PANEL Routine 08/11/2024 7:42 AM EDT Essential (primary) hypertension Adult failure to thrive Alzheimer's disease, unspecified (CODE) (CMS/[facility] V24, [facility] V28) documented in this encounter Results * Folate (08/11/2024 7:42 AM EDT) [facility] Folate 7.7 2.8 - 17.0 ng/ml LAB CHEMISTRY METHOD 08/11/2024 11:44 AM EDT [facility] Blood Venous blood specimen / Unknown Venipuncture / Unknown 08/11/2024 7:42 AM EDT 08/11/2024 9:54 AM EDT us [facility] LAB BLOOD ORDERABLES Final Resul t Performing Organization Address City/[facility]/ZIP Co de Phone Number [facility] [address] [place] [address], [place] [phone] * Vitamin B12 (08/11/2024 7:42 AM EDT) [facility] Vitamin B-12 363 250 - 900 pcg/mL LAB CHEMISTRY METHOD 08/11/2024 11:44 AM EDT [facility] Blood Venous blood specimen / Unknown Venipuncture / Unknown 08/11/2024 7:42 AM EDT 08/11/2024 9:54 AM EDT [facility] LAB BLOOD ORDERABLES Final Resul t [facility] [address] [place] [address], [place] [phone] * Thyroid stimulating hormone (08/11/2024 7:42 AM EDT) [facility] TSH 2.49 0.40 - 4.00 mcIU/mL LAB CHEMISTRY METHOD 08/11/2024 1:01 PM [facility] Blood Venous blood specimen / Unknown Venipuncture / Unknown 08/11/2024 7:42 AM EDT 08/11/2024 9:54 AM EDT Thania Whittington NP LAB BLOOD ORDERABLES Final Resul t [facility] [address] [place] [address], * (ABNORMAL) Basic metabolic panel (08/11/2024 7:42 AM EDT) [facility] Sodium 142 133 - 145 mmol/L LAB CHEMISTRY METHOD 08/11/2024 11:22 AM [facility] Potassium 3.9 3.5 - 5.5 mmol/L LAB CHEMISTRY METHOD 08/11/2024 11:22 AM [facility] Chloride 108 96 - 110 mmol/L LAB CHEMISTRY METHOD 08/11/2024 11:22 AM [facility] CO2 29 21 - 32 mmol/L LAB CHEMISTRY METHOD 08/11/2024 11:22 AM [facility] Anion Gap 5 3 - 11 LAB CHEMISTRY METHOD 08/11/2024 11:22 AM [facility] Glucose 93 70 - 100 mg/dL LAB CHEMISTRY METHOD 08/11/2024 11:22 AM [facility] BUN 23 5 - 25 mg/dL LAB CHEMISTRY METHOD 08/11/2024 11:22 AM [facility] Creatinine 0.62(L) 0.70 - 1.30 mg/dL LAB CHEMISTRY METHOD 08/11/2024 11:22 AM [facility] eGFR 95 >=60 mL/min/1. [...] EDT 08/11/2024 9:54 AM EDT Thania Whittington DECATOR OPERATOR LAB BLOOD ORDERABLES Final Resul t [facility] [address] [place] [address], * Complete blood count (08/11/2024 7:42 AM EDT) WBC 9.0 4.8 - 10.8 K/mcL LAB HEMETOLOGY METHOD 08/11/2024 10:27 AM [facility] RBC 4.50 4.50 - 5.50 M/mcL LAB HEMETOLOGY METHOD 08/11/2024 10:27 AM [facility] Hemoglobin 14.3 13.5 - 17.5 g/dL LAB HEMETOLOGY METHOD 08/11/2024 10:27 AM [facility] Hematocrit 43.3 42.0 - 54.0 % LAB HEMETOLOGY METHOD 08/11/2024 10:27 AM [facility] MCV 95.4 79.0 - 98.0 FL LAB HEMETOLOGY METHOD 08/11/2024 10:27 AM [facility] MCH 31.5 27.0 - 32.0 pcg LAB HEMETOLOGY METHOD 08/11/2024 10:27 AM EDT [facility] MCHC 33.0 32.0 - 37.0 g/dL LAB HEMETOLOGY METHOD 08/11/2024 10:27 AM EDT [facility] RDW 13.2 11.0 - 15.0 % LAB HEMETOLOGY METHOD 08/11/2024 10:27 AM EDT [facility] Platelets 235 130 - 400 K/mcL LAB HEMETOLOGY METHOD 08/11/2024 10:27 AM EDT [facility] MPV 10.9 7.0 - 11.0 FL LAB HEMETOLOGY METHOD 08/11/2024 10:27 AM EDT [facility] NRBC 0.0 <1.0 % LAB HEMETOLOGY METHOD 08/11/2024 10:27 AM EDT [facility] NRBC Absolute 0.00 <0.10 K/mcL LAB HEMETOLOGY METHOD 08/11/2024 10:27 AM EDT [facility] Blood Venous blood specimen / Unknown Venipuncture / Unknown 08/11/2024 7:42 AM EDT 08/11/2024 9:54 AM EDT Thania Whittington NP LAB BLOOD ORDERABLES Final Resul t [facility] [address] [place] [address], documented in this encounter Visit Diagnoses Diagnosis Essential (primary) hypertension Unspecified essential hypertension Adult failure to thrive Alzheimer's disease, unspecified (CODE) (CMS/HCC V24, CMS/HCC V28) documented in this encounter Care Teams Director Of Restaurant Relationship Specialty Start Date End Date Thania Whittington NP [address] [place] [address] PCP - General Nurse Practitioner 08/11/24 documented as of this encounter
--- OUTSIDE RECORDS SUMMARY | 2024-08-17 14:02 | XMS_ITS | Clinical Summary ---
Author Organization [facility] Address [address] [place] [address] Phone Care Team Providers Care Agency Manager Name Role Phone AutomaticallyONE, SignedONE Unavailable Conditions or Problems Problem Name Problem Code Onset Date Status Entry Date Provider Comment Standard Description Annotate ELEVATED LIVER ENZYMES 810640005 (SNOMED CT) 06/25 Active 06/25 Chiki Christianson DO Liver enzymes level above reference range BENIGN OBSTRUCTIVE JAUNDICE 17702709 (SNOMED CT) 06/25 Active 06/25 Chiki Christianson DO Obstructive hyperbilirubinem ia ACUTE GANGRENOUS CHOLECYSTITI S 91647561 (SNOMED CT) 06/10 Inactive 06/19 Harriett Burnard MORTGAGE LOAN REVIEWER Acute gangrenous cholecystitis ACUTE GANGRENOUS CHOLECYSTITI S 40013212 (SNOMED CT) 06/10 Inactive 06/19 Harriett Burnard MORTGAGE LOAN REVIEWER Acute gangrenous cholecystitis Medications Medication Instructions Start Date Stop Date Generic Name ND Provider ROXICODONE 5 MG ORAL TABLET one po q4hrs prn pain- no drinking or drivng while on ain meds 8 OXYCODONE HCL [id number] Jamel Kate MD ROXICODONE 5 MG ORAL TABLET one po q4hrs prn pain- no drinking or drivng while on ain meds 8 OXYCODONE HCL [id number] Jamel Kate MD Medications Administered No information [...] Procedures Code Procedure Name Date Entry Date [id number] Patient encounter procedure [id number] Patient encounter procedure Vital Signs Date Name [...]
[2024-08-17 14:14] LABS: ~Lactic Acid-LAB USE ONLY 4.7 mmol/L (0.5-2.0)
--- NOTE | 2024-08-17 14:23 | PC.NURSE ---
pt transitioned to 8L via oxymask at this time. pt tolerating transition well. remains in upright position to promote patent airway. no sob/wob noted. respirations even/unlabored. pt's mentation remains the same since ED arrival. arousable to physical stimuli. not able to answer questions/follow commands appropriately. otherwise vital signs continue to improve. no longer hypotensive/tachycardic/tachypneic. nsr on the youth nutritional monitor. repeat lactic resulted and noted to be more elevated than previous s/p IVF bolus. provider notified/aware. per provider order, additional IVF are not needed at this time. plan of care ongoing. call palmer placed within reach.
[2024-08-17] MEDS: Enoxaparin Sodium 40 MG/0.4 ML SYRINGE SUBCUT (14:53)
[2024-08-17] MEDS: Lactated Ringers 1,000 ML 999 ML IV (14:53)
--- NOTE | 2024-08-17 15:07 | PHA.MEDREC ---
Pharmacy Consult ? Medication Reconciliation Pharmacy has completed the medication reconciliation. [facility] utilized med list to confirm as there are no claims.
[2024-08-17 15:44] LABS: Reflex Lactate? 2 Y
--- NOTE | 2024-08-17 15:59 | PM.IMHP ---
History of Present Illness Date of Service: 08/17/24 Attending physician on admission: Paul Jones Chief Complaint: AMS, hypoxia Pt is an 84-year-old male with a PMH significant for Alzheimer's dementia with behavioral disturbances, HTN, dysphagia, and adult failure to thrive?who presents to the ED from [facility] and rehab SNF for evaluation of altered mental status and hypoxia. Pt is awake and alert but not oriented or following commands. HPI taken from chart and provider review. Staff at SNF report pt awoke this morning apparently in his normal state of health. After eating breakfast pt was noted to be both altered and hypoxic, satting as low as 83% on RA. EMS put pt on non-rebreather at 10 L with saturation at 93%. Of note, pt was a long-term resident on the medical floor for 6 months before guardianship was obtained and pt was discharged to SNF 1 month ago. Upon discharge pt was in NND3 diet. In the ED pt was febrile up to 102.7, tachycardic up to 122, tachypneic up to 24, hypertensive up to 142/71, and satting at 96% on 10 L non-rebreather. Labs were significant for leukocytosis of 11.0, sodium 152, BUN 40, creatinine 1.46, initial lactic acid 4.4 with repeat 4.7, AST 47, initial troponin 67.9 with repeat 76.0, albumin 3.0. UA positive for nitrites, leukocyte esterase, WBCs 11-20, but negative for bacteria. Tested negative for flu, COVID, RSV. CT of head negative for acute intracranial abnormality. CXR showing parenchymal opacity in left mid and lower lung suspicious for pneumonia. CT of chest showing extensive consolidative opacities throughout left lower lobe findings consistent with aspiration pneumonitis. Also showed moderate to severe paraseptal emphysema with bullous changes in right lower lobe. CTA of abdomen/pelvis negative for acute inflammatory abnormality though did show constipation/obstipation. EKG demonstrated sinus tachycardia of 120 without evidence of significant ST elevations or depressions. Pt was treated in the ED with acetaminophen IV, 2 L IVF, and Zosyn. Pt is admitted to the hospital for treatment and further evaluation of acute hypoxic respiratory failure and acute metabolic encephalopathy in the setting of likely aspiration pneumonia with sepsis. Review of Systems Review of Systems: Negative except for that which is stated in the HPI. [facility] Medical History Hypertension Dementia with behavioral disturbance Social History Household Members: Unknown / Unable to assess Housing: Unknown / Unable to assess Comment: bedside commode during daytime Patient Tobacco Use Status: Tobacco use Unknown Advance Directives: Yes Advance Directives on File: Yes Advance Directives Date on File: 05/29/24 Do you have a plan to hurt others: No Plan service: No Sexual orientation: Straight/Heterosexual Meds Allergies Allergy/AdvReac Type Severity Reaction Status Date / Time No Known Allergies Allergy Verified 08/17/24 11:07 Active Medications: Current Medications Acetaminophen (Acetaminophen 325 Mg Tablet) 650 mg PO Q6H PRN PRN Reason: Pain, Mild 1-3,fever,headache Calcium Carbonate (Calcium Carbonate 750 Mg Tab.Chew) 750 mg PO Q4H PRN PRN Reason: Heartburn Enoxaparin Sodium (Enoxaparin Sodium 40 Mg/0.4 Ml Syringe) 40 mg SUBCUT Q24H [facility] Last Admin: 08/17/24 14:53 Dose: 40 mg Piperacillin Sod/Tazobactam (Sod 3.375 gm/ Sodium Chloride) 50 mls @ 100 mls/hr IV Q6H [facility] Magnesium Hydroxide (Milk Of Magnesia 30 Ml Oral.Susp) 30 ml PO DAILY PRN PRN Reason: Constipation Melatonin (Melatonin 3 Mg Tablet) 6 mg PO BEDTIME PRN PRN Reason: Insomnia Ondansetron HCl (Ondansetron Hcl 4 Mg/2 Ml Vial) 4 mg IVPUSH Q8H PRN PRN Reason: Nausea and Vomiting Sodium Chloride (0.9 % Sodium Chloride Flush 3 Ml Syringe) 3 ml IVFLUSH QSHIFT [facility] Home Medications ?Medication ?Instructions ?Recorded ?Confirmed ?Last Taken ?Type acetaminophen 325 mg tablet 650 mg PO Q6H PRN Headache/Pain 02/14/24 08/17/24 Unknown History (Scale Score 1-3) magnesium hydroxide 400 mg/5 mL 30 ml PO DAILY PRN Constipation 02/14/24 08/17/24 Unknown History oral suspension (Milk of Magnesia) bisacodyl 10 mg rectal suppository 10 mg [place] DAILY PRN Constipation 07/23/24 08/17/24 Unknown History clonidine 0.1 mg/24 hr weekly 0.1 mg transdermal TH@0900 08/05/24 08/17/24 Unknown History transdermal patch mirtazapine 15 mg tablet (Remeron) 15 mg PO BEDTIME 08/05/24 08/17/24 Unknown History melatonin 3 mg tablet 6 mg PO BEDTIME 08/17/24 08/17/24 Unknown History trazodone 50 mg tablet 25 mg PO BID PRN Anxiety 08/17/24 08/17/24 Unknown History Physical Exam Vital Signs and Narrative: Vital Signs: Last Vital Signs Temp 99.9 F 08/17/24 14:01 Pulse 95 08/17/24 14:01 Resp 18 08/17/24 14:01 BP 131/73 08/17/24 14:01 Pulse Ox 98 08/17/24 14:01 O2 Del Method Oxymask 08/17/24 14:01 O2 Flow Rate 8 08/17/24 14:01 Oxygen Flow Rate 10 08/17/24 11:05 BMI result Body Mass Index 20.9 General: Awake and alert, not oriented. Not following commands or speaking comprehensively. In no acute distress Resp: Left lobe rhonchi CVS: S1, S2, regular rhythm, tachycardic GI: +BS, NT, no distention Skin: Warm, dry Neuro: Motor grossly intact bilaterally. Not following commands. Extremities: No edema Results Labs 08/17/24 11:18 08/17/24 12:25 Labs: Laboratory Results - last 24 hr 08/17/24 08/17/24 08/17/24 11:18 11:23 11:24 MCV 94.7 MCH 31.6 MCHC 33.4 RDW 13.1 Plt Count 192 MPV 11.0 Immature Gran % (Auto) Cancelled Neut % (Auto) Cancelled Lymph % (Auto) Cancelled [place]on % (Auto) Cancelled Eos % (Auto) Cancelled Baso % (Auto) Cancelled Lymph # (Auto) Cancelled Harmon # (Auto) Cancelled Eos # (Auto) Cancelled Baso # (Auto) Cancelled Abs Immat Gran (auto) Cancelled Absolute Neuts (auto) Cancelled Absolute Nucleated RBC 0.020 H Nucleated RBC % (auto) 0.2 Neutrophils % (Manual) 58 Band Neutrophils % 30 H Lymphocytes % (Manual) 6 L Monocytes % (Manual) 6 Abs Neuts (Manual) 9.7 H Lymphocytes # (Manual) 0.7 L Monocytes # (Manual) 0.7 Toxic Vacuolation PRESENT Platelet Estimate NORMAL Large Platelets PRESENT Plt Morphology Comment NOTED RBC Morphology NOTED Polychromasia 1+ (0-2) Macrocytosis 1+ (5-14) PT 15.5 H INR 1.3 H VBG pH 7.45 H VBG pCO2 30 VBG pO2 43 VBG HCO3 21 L VBG O2 Saturation 71.0 VBG Base Excess -0.9 Anion Gap Estim Creat Clear Calc Estimated GFR Random Glucose Lactic Acid 4.4 H* Lactic Acid F/U @ 2Hr Calcium Magnesium Total Bilirubin AST ALT Alkaline Phosphatase Ammonia 32 B-Natriuretic Peptide 191 H Total Protein Albumin Lipase Urine Color Urine Appearance Urine pH Ur Specific [place] Urine Protein Urine Glucose (UA) Urine Ketones Urine Blood Urine Nitrite Ur Leukocyte Esterase Urine RBC Urine WBC Ur Squamous Epith Cells Urine Bacteria Hyaline Casts Influenza Type A (PCR) NEGATIVE Influenza Type B (PCR) NEGATIVE RSV RNA Qual (PCR) NEGATIVE SARS-CoV-2 RNA (RT-PCR) NEGATIVE 08/17/24 08/17/24 08/17/24 12:13 12:25 13:41 MCV MCH MCHC RDW Plt Count MPV Immature Gran % (Auto) Neut % (Auto) Lymph % (Auto) Harmon % (Auto) Eos % (Auto) Baso % (Auto) Lymph # (Auto) Harmon # (Auto) Eos # (Auto) Baso # (Auto) Abs Immat Gran (auto) Absolute Neuts (auto) Absolute Nucleated RBC Nucleated RBC % (auto) Neutrophils % (Manual) Band Neutrophils % Lymphocytes % (Manual) Monocytes % (Manual) Abs Neuts (Manual) Lymphocytes # (Manual) Monocytes # (Manual) Toxic Vacuolation Platelet Estimate Large Platelets Plt Morphology Comment RBC Morphology Polychromasia Macrocytosis PT INR VBG pH VBG pCO2 VBG pO2 VBG HCO3 VBG O2 Saturation VBG Base Excess Anion Gap 19 Estim Creat Clear Calc 33.7 Estimated GFR 46 Random Glucose 142 H Lactic Acid Lactic Acid F/U @ 2Hr 4.7 H* Calcium 8.9 Magnesium 2.1 Total Bilirubin 1.1 H AST 47 H ALT 34 Alkaline Phosphatase 73 Ammonia B-Natriuretic Peptide Total Protein 5.7 L Albumin 3.0 L Lipase 7 L Urine Color [place] A Urine Appearance Cloudy Urine pH 5.0 Ur Specific [place] 1.025 Urine Protein 100 (2+) H Urine Glucose (UA) Negative Urine Ketones Trace Urine Blood Large (3+) H Urine Nitrite Positive H Ur Leukocyte Esterase Small (1+) H Urine RBC >20 H Urine WBC 11-20 H Ur Squamous Epith Cells 6-10 Urine Bacteria None Seen Hyaline Casts 11-20 Influenza Type A (PCR) Influenza Type B (PCR) RSV RNA Qual (PCR) SARS-CoV-2 RNA (RT-PCR) Imaging Radiologist's Impressions: Impressions Chest X-Ray 08/17/24 11:30 IMPRESSION: There is parenchymal opacity in the left mid and lower lung suspicious for pneumonia. Electronically signed by: Errol Alonso MD 08/17/2024 11:44 AM EDT RP Abdomen/Pelvis CT 08/17/24 11:32 IMPRESSION: 1. Limited examination due to moderate motion degradation. 2. No acute inflammatory abnormality in the abdomen or pelvis. 3. Constipation/obstipation. 4. Cholecystectomy. 5. Colonic diverticulosis without evidence of acute diverticulitis. 6. Additional ancillary findings as discussed in the body of the report. Also, refer to the dedicated chest CT performed concurrently. Electronically signed by: Errol Alonso MD 08/17/2024 12:26 PM EDT RP Chest CT 08/17/24 11:39 IMPRESSION: 1. Examination limited by moderate respiratory motion artifact. 2. Moderate to severe paraseptal emphysema with bullous changes in the right lower lobe. 3. Extensive consolidative opacities throughout the left lower lobe, involving the lingula and posterior left upper lobe, involving the subpleural right lower lobe. Findings are keeping with focal pneumonitis, with aspiration within the differential. 4. There is no effusion or pneumothorax. 5. Ancillary findings as discussed in the body of the report. Electronically signed by: Errol Alonso MD 08/17/2024 12:19 PM EDT RP Head CT 08/17/24 11:39 IMPRESSION: No acute intracranial abnormality. Electronically signed by: Errol Alonso MD 08/17/2024 12:11 PM EDT RP Assessment and Plan (1) Aspiration pneumonia: Status: Acute (2) Acute hypoxic respiratory failure: Status: Acute Plan Pt is an 84-year-old male with a PMH significant for Alzheimer's dementia with behavioral disturbances, HTN, dysphagia, and adult failure to thrive?who presents to the ED from [facility] and rehab SNF for evaluation of altered mental status and hypoxia. Pt is admitted to the hospital for treatment and further evaluation of acute hypoxic respiratory failure and acute metabolic encephalopathy in the setting of likely aspiration pneumonia with sepsis. Acute hypoxic respiratory failure and acute metabolic encephalopathy in the setting of aspiration pneumonia Pt altered, lethargic, satting at 83% on RA after breakfast this morning CT showing likely aspiration in left lower lobe Pt meets sepsis criteria with fever, tachycardia, and tachypnea Pt given IVF and started on broad-spectrum antibiotics in the ED Will treat with Zosyn started 08/17/2024 Titrate supplemental O2 >92, wean as tolerated Acetaminophen for fever Monitor mentation and respiratory status Aspiration precautions NPO diet pending swallow eval Lactic acidosis Lactic acid 4.4 with repeat 4.7 In the setting of above Pt received 2 L IVF in the ED Will give additional 1 L IVF Repeat lactic acid UTI UA positive for nitrites, leukocyte esterase, and WBCs 11-20 Pt being covered with Zosyn as above Follow urine cultures SYBIL Creatinine 1.46 at time of presentation Likely secondary to hypovolemia from reduced p.o. intake Pt received IVF Follow kidney function Hypernatremia Sodium 152 at time of presentation Likely secondary to hypovolemia from reduced p.o. intake Pt received 3 L IVF Follow sodium Elevated troponins Initial troponin 67.9 with repeat flat at 76.0 EKG without ischemic changes Likely type 2 in the setting of increased demand Monitor on telemetry Constipation Continue bowel regimen HTN Continue clonidine patch Dementia Continue mirtazapine Full Code Attending:?Dr. Jones DVT Prophylaxis: Lovenox Pt will require a hospitalization of at least two nights for treatment of?acute hypoxic respiratory failure and acute metabolic encephalopathy in the setting of aspiration pneumonia with sepsis. Pt will require administration of IV antibiotics, IVF, supplemental O2, and close monitoring of labs, mental status, and respiratory status. Quality Stroke Does the patient have a stroke diagnosis?: No VTE Prior VTE?: No VTE Risk Level:: Medical - moderate - high VTE Device Contraindication: Treatment Not Indicated VTE Drug Contraindication: N/A - Med Ordered
--- NOTE | 2024-08-17 16:14 | MHC.EDTECH ---
This pct assumed care of Pt at 1500,Patient altered ,vitals taken ,Patient was Soiled ,care given ,bedding and gown change ,Pt reposition unto his right side ,with Pillows behind his back and between his legs ,warm blanket given ,All safety measure in Place ,call palmer within Pt reach .
--- NOTE | 2024-08-17 16:44 | PC.NURSE ---
Pt is asleep awakes to voice or noxious stimuli, moaning and graoning with care. Pt Repositioned on right side. Non blanchable redness noted to buttocks. Luo in place, scant bleeding around head of penis noted, will continue to monitor. Urine dark with large amount of sediment. Oxy mask initially on 8lpm, titrated to 6lpm, pt continues to sat at 100%, now titrated down to 4lpm via oxymask and sat remains high 90s. Extremities dusky, b/l UE bruising with multiple stages of healing. Repeat lactic sent. NSR on tele.
[2024-08-17 16:56] LABS: ~Lactic Acid-LAB USE ONLY 4.5 mmol/L (0.5-2.0)
[2024-08-17 16:58] LABS: Cancel Lactic Acid Canceled
[2024-08-17] MEDS: 0.9 % Sodium Chloride Flush 3 ML SYRINGE IVFLUSH ×3 (17:18→23:45)
[2024-08-17] MEDS: Dextrose 5 % and 0.45 % NaCl 1,000 ML 80 ML IVCONT (18:59)
--- NOTE | 2024-08-17 21:08 | PC.NURSE ---
notified Dr. Menjivar that patients vitals are trending up. tachy to 110, blood pressure 180/84 and core temp 100.1. Per dr Menjivar nothing to do at this time
--- NOTE | 2024-08-17 21:49 | MHC.EDTECH ---
2200 rounding done ,Patient sleeping ,Pt mouth was swab ,and winter cathether empty ,Patient was incontinent of small amount of stool ,care given ,Pt has a bed assignment on ,and is being Transported by Transporter .
--- NOTE | 2024-08-17 23:30 | HO.SKINPHOTO ---
Location: right ankle Category: pressure Stage: I Length: Width: Depth: cm Location: buttocks Category: pressure Stage: I/DTI? Length: Width: Depth: cm Location: right arm Category: skin tear Stage: Length: Width: Depth: cm Location: right heel Category: pressure Stage: I Length: Width: Depth: cm Location: Category: Stage: Length: Width: Depth: cm Location: Category: Stage: Length: Width: Depth: cm
[2024-08-18 03:15] VITALS: BP 117/56; PULSE 108; RESP 24; TEMP 36.6; O2SAT 93
[2024-08-18] MEDS: Piperacillin Sodium/Tazobactam 3.375 GM in 0.9 % Sodium Chloride 50 ML IV ×3 (04:45→17:17)
[2024-08-18] MEDS: Dextrose 5 % and 0.45 % NaCl 1,000 ML 80 ML IVCONT (04:48)
[2024-08-18 06:28] LABS: Hematocrit 43.1 % (42.0-52.0); Mean Corpuscular HGB Conc 34.8 g/dl (31.0-36.0); Mean Corpuscular Hemoglobin 32.5 pg (27.0-33.0); Mean Corpuscular Volume 93.5 fL (80.0-98.0); Red Blood Count 4.61 X10*6/uL (4.60-5.80); Red Cell Distribution Width 13.1 % (11.0-16.0); White Blood Count 14.1 X10*3/uL (4.8-10.8)
[2024-08-18 06:35] LABS: Platelet Count 143 X10*3/uL (160-400)
[2024-08-18 06:43] LABS: Anion Gap 11 (12-20); Blood Urea Nitrogen 27 mg/dL (9-16); Carbon Dioxide 23 mmol/L (22-29); Chloride 121 mmol/L (96-108); Creatinine Clr Calc Pharmacy 71.3; Estimated Glomerular Filt Rate > 60; Glucose Random 142 mg/dL (60-115); Potassium 3.3 mmol/L (3.3-5.1); Sodium 152 mmol/L (135-145)
[2024-08-18 07:34] VITALS: BP 97/53; PULSE 96; RESP 18; TEMP 36.3; O2SAT 94
[2024-08-18] MEDS: Dextrose 5 % 1,000 ML 125 ML IVCONT ×2 (07:45→15:13)
[2024-08-18] MEDS: 0.9 % Sodium Chloride Flush 3 ML SYRINGE IVFLUSH ×2 (07:49→15:16)
--- NOTE | 2024-08-18 08:37 | MHC.CM.PN ---
Patient comes from LTC at [facility]. Guardianship/conservator on file - Sita Pace. PCP Geno Ling MD IMM delivered to guardian via VM. DP: Return to LTC via BLS. CM will continue to follow.
--- NOTE | 2024-08-18 09:13 | P.PNIM_ITS ---
Subjective Subjective Date of Service: 08/18/24 Review of Systems Review of Systems: Yes Unobtainable due to mental status Physical Exam 2 Vital Signs: Vital Signs: Last Vital Signs Temp 97.4 F 08/18/24 07:34 Pulse 96 08/18/24 07:34 Resp 18 08/18/24 07:34 BP 97/53 L 08/18/24 07:34 Pulse Ox 94 08/18/24 07:34 O2 Del Method Oxymask 08/18/24 07:34 O2 Flow Rate 2 08/18/24 07:34 Oxygen Flow Rate 10 08/17/24 11:05 BMI result Body Mass Index 21.8 Lethargic, ill-appearing, crackles bilateral Objective Data Active Medications Acetaminophen (Acetaminophen 325 Mg Tablet) 650 mg PO Q6H PRN PRN Reason: Pain, Mild 1-3,fever,headache Bisacodyl (Bisacodyl 10 Mg Supp.Rect) 10 mg DE DAILY PRN PRN Reason: Constipation Calcium Carbonate (Calcium Carbonate 750 Mg Tab.Chew) 750 mg PO Q4H PRN PRN Reason: Heartburn Clonidine (Clonidine 0.1 Mg Patch.Tdwk) 0.1 mg TRANSDERMA TH@0900 [facility]; Protocol Enoxaparin Sodium (Enoxaparin Sodium 40 Mg/0.4 Ml Syringe) 40 mg SUBCUT Q24H [facility] Last Admin: 08/17/24 14:53 Dose: 40 mg Documented By: NADEEM Piperacillin Sod/Tazobactam (Sod 3.375 gm/ Sodium Chloride) 50 mls @ 100 mls/hr IV Q6H [facility] Last Infusion: 08/18/24 05:20 Dose: Infused Documented By: NOHELIA Dextrose (D5w) 1,000 mls @ 125 mls/hr IVCONT .Q8H [facility] Last Admin: 08/18/24 07:45 Dose: 125 mls/hr Documented By: IRWIN Magnesium Hydroxide (Milk Of Magnesia 30 Ml Oral.Susp) 30 ml PO DAILY PRN PRN Reason: Constipation Melatonin (Melatonin 3 Mg Tablet) 6 mg PO BEDTIME PRN PRN Reason: Insomnia Mirtazapine (Mirtazapine 15 Mg Tablet) 15 mg PO BEDTIME [facility] Last Admin: 08/17/24 21:02 Dose: Not Given Documented By: HO.CONNAUH Non-Admin Reason: NPO Ondansetron HCl (Ondansetron Hcl 4 Mg/2 Ml Vial) 4 mg IVPUSH Q8H PRN PRN Reason: Nausea and Vomiting Polyethylene Glycol (Polyethylene Glycol 3350 17 Gm Powd.Pack) 17 gm PO DAILY JUAN PABLO Sodium Chloride (0.9 % Sodium Chloride Flush 3 Ml Syringe) 3 ml IVFLUSH QSHIFT JUAN PABLO Last Admin: 08/18/24 07:49 Dose: 3 ml Documented By: IRWIN Trazodone HCl (Trazodone Hcl 25 Mg Halftab) 25 mg PO BID PRN PRN Reason: Anxiety Labs 08/18/24 05:56 08/18/24 05:56 Labs: Laboratory Results - last 24 hr 08/17/24 08/17/24 08/17/24 11:18 11:23 11:24 MCV 94.7 MCH 31.6 MCHC 33.4 RDW 13.1 Plt Count 192 MPV 11.0 Immature Gran % (Auto) Cancelled Neut % (Auto) Cancelled Lymph % (Auto) Cancelled [place] % (Auto) Cancelled Eos % (Auto) Cancelled Baso % (Auto) Cancelled Lymph # (Auto) Cancelled [place] # (Auto) Cancelled Eos # (Auto) Cancelled Baso # (Auto) Cancelled Abs Immat Gran (auto) Cancelled Absolute Neuts (auto) Cancelled Absolute Nucleated RBC 0.020 H Nucleated RBC % (auto) 0.2 Neutrophils % (Manual) 58 Band Neutrophils % 30 H Lymphocytes % (Manual) 6 L Monocytes % (Manual) 6 Abs Neuts (Manual) 9.7 H Lymphocytes # (Manual) 0.7 L Monocytes # (Manual) 0.7 Toxic Vacuolation PRESENT Platelet Estimate NORMAL Large Platelets PRESENT Plt Morphology Comment NOTED RBC Morphology NOTED Polychromasia 1+ (0-2) Macrocytosis 1+ (5-14) PT 15.5 H INR 1.3 H VBG pH 7.45 H VBG pCO2 30 VBG pO2 43 VBG HCO3 21 L VBG O2 Saturation 71.0 VBG Base Excess -0.9 Anion Gap Estim Creat Clear Calc Estimated GFR Random Glucose Lactic Acid 4.4 H* Lactic Acid F/U @ 2Hr Lactic Acid F/U @ 4Hr Calcium Magnesium Total Bilirubin AST ALT Alkaline Phosphatase Ammonia 32 B-Natriuretic Peptide 191 H Total Protein Albumin Lipase Urine Color Urine Appearance Urine pH Ur Specific [place] Urine Protein Urine Glucose (UA) Urine Ketones Urine Blood Urine Nitrite Ur Leukocyte Esterase Urine RBC Urine WBC Ur Squamous Epith Cells Urine Bacteria Hyaline Casts Influenza Type A (PCR) NEGATIVE Influenza Type B (PCR) NEGATIVE RSV RNA Qual (PCR) NEGATIVE SARS-CoV-2 RNA (RT-PCR) NEGATIVE 08/17/24 08/17/24 08/17/24 12:13 12:25 13:41 MCV MCH MCHC RDW Plt Count MPV Immature Gran % (Auto) Neut % (Auto) Lymph % (Auto) [place] % (Auto) Eos % (Auto) Baso % (Auto) Lymph # (Auto) [place] # (Auto) Eos # (Auto) Baso # (Auto) Abs Immat Gran (auto) Absolute Neuts (auto) Absolute Nucleated RBC Nucleated RBC % (auto) Neutrophils % (Manual) Band Neutrophils % Lymphocytes % (Manual) Monocytes % (Manual) Abs Neuts (Manual) Lymphocytes # (Manual) Monocytes # (Manual) Toxic Vacuolation Platelet Estimate Large Platelets Plt Morphology Comment RBC Morphology Polychromasia Macrocytosis PT INR VBG pH VBG pCO2 VBG pO2 VBG HCO3 VBG O2 Saturation VBG Base Excess Anion Gap 19 Estim Creat Clear Calc 33.7 Estimated GFR 46 Random Glucose 142 H Lactic Acid Lactic Acid F/U @ 2Hr 4.7 H* Lactic Acid F/U @ 4Hr Calcium 8.9 Magnesium 2.1 Total Bilirubin 1.1 H AST 47 H ALT 34 Alkaline Phosphatase 73 Ammonia B-Natriuretic Peptide Total Protein 5.7 L Albumin 3.0 L Lipase 7 L Urine Color [place] A Urine Appearance Cloudy Urine pH 5.0 Ur Specific [place] 1.025 Urine Protein 100 (2+) H Urine Glucose (UA) Negative Urine Ketones Trace Urine Blood Large (3+) H Urine Nitrite Positive H Ur Leukocyte Esterase Small (1+) H Urine RBC >20 H Urine WBC 11-20 H Ur Squamous Epith Cells 6-10 Urine Bacteria None Seen Hyaline Casts 11-20 Influenza Type A (PCR) Influenza Type B (PCR) RSV RNA Qual (PCR) SARS-CoV-2 RNA (RT-PCR) 08/17/24 08/18/24 16:24 05:56 MCV 93.5 MCH 32.5 MCHC 34.8 RDW 13.1 Plt Count 143 L D MPV 11.0 Immature Gran % (Auto) Neut % (Auto) Lymph % (Auto) [place] % (Auto) Eos % (Auto) Baso % (Auto) Lymph # (Auto) [place] # (Auto) Eos # (Auto) Baso # (Auto) Abs Immat Gran (auto) Absolute Neuts (auto) Absolute Nucleated RBC 0.000 Nucleated RBC % (auto) 0.0 Neutrophils % (Manual) Band Neutrophils % Lymphocytes % (Manual) Monocytes % (Manual) Abs Neuts (Manual) Lymphocytes # (Manual) Monocytes # (Manual) Toxic Vacuolation Platelet Estimate Large Platelets Plt Morphology Comment RBC Morphology Polychromasia Macrocytosis PT INR VBG pH VBG pCO2 VBG pO2 VBG HCO3 VBG O2 Saturation VBG Base Excess Anion Gap 11 L Estim Creat Clear Calc 71.3 Estimated GFR > 60 Random Glucose 142 H Lactic Acid Lactic Acid F/U @ 2Hr Lactic Acid F/U @ 4Hr 4.5 H* Calcium 9.0 Magnesium Total Bilirubin AST ALT Alkaline Phosphatase Ammonia B-Natriuretic Peptide Total Protein Albumin Lipase Urine Color Urine Appearance Urine pH Ur Specific [place] Urine Protein Urine Glucose (UA) Urine Ketones Urine Blood Urine Nitrite Ur Leukocyte Esterase Urine RBC Urine WBC Ur Squamous Epith Cells Urine Bacteria Hyaline Casts Influenza Type A (PCR) Influenza Type B (PCR) RSV RNA Qual (PCR) SARS-CoV-2 RNA (RT-PCR) Assessment and Plan (1) Aspiration pneumonia: Status: Acute Plan 84M PMH Alzheimer's dementia with behavioral disturbances, hypertension, dysphagia, failure to thrive presented with altered mental status and hypoxia Sepsis, acute hypoxic respiratory failure, acute metabolic encephalopathy due to aspiration pneumonia and urinary tract infection Continue Zosyn, follow up cultures, weaned down to 2 L, continue to wean as tolerated Encephalopathy also due to acute hypernatremia due to poor intake Now fluid resuscitated will change to D5W, monitor Acute kidney injury Due to dehydration, resolved Elevated troponin Likely type 2 - demand ischemia Alzheimer's dementia Risk for delirium, monitor DVT prophylaxis with Lovenox Full Code reason for continued hospitalization: Hypoxia, hypernatremia Quality Stroke Does the patient have a stroke diagnosis?: No VTE Prior VTE?: No VTE Risk Level:: Medical - moderate - high VTE Device Contraindication: Treatment Not Indicated VTE Drug Contraindication: N/A - Med Ordered
[2024-08-18 11:56] VITALS: BMI 21.8
--- NOTE | 2024-08-18 11:56 | MHC.SLORD ---
Speech Language Pathology Order Status: GEOPHYSICAL LABORATORY DIRECTOR attempted to see pt for clinical swallow evaluation at bedside. Pt not awake/alert for evaluation. RN to [facility]ers pt when/if pt becomes appropriate for swallow evaluation.
--- NOTE | 2024-08-18 11:59 | MHC.CLN ---
CONSULT PT WITH INCREASED NUTRITION RISK R/T PRESSURE INJURY PT IS CURRENTLY NPO PENDING SWALLOW EVAL R/T ASP. PNA WHEN DIET TO ADVANCE, RECOMMEND ADDING MAGIC CUP TID TO PROMOTE WOUND HEALING SUPP TO PROVIDE 870KCALS, 27G PROTEIN FOLLOW FOR DIET ADVANCEMENT SEE FULL CLINICAL NUTRITION ASSESSMENT
[2024-08-18] MEDS: Enoxaparin Sodium 40 MG/0.4 ML SYRINGE SUBCUT (15:13)
[2024-08-18 16:00] VITALS: BP 121/63; PULSE 85; RESP 18; TEMP 36.9; O2SAT 93
--- NOTE | 2024-08-18 18:00 | HO.WOUND ---
Wound Consult: Initial 84yr old male admitted to [facility] [place] [facility] on 08/17/24- See progress notes and H&P for detailed history.? Wound consult placed for Sacrum , Right Ankle, Heel and Right Arm. Patient agreeable to assessment and photo documentation.? Of note this patient is known to this chief writer from previous admission - he is not noted to have a right arm and right leg significant contracture. Sacrum Etiology: ??DTI Present on Admission Wound Bed: Purple red nonblanchable intact tissue Drainage / Odor: None Edges: ? irregular Calli wound: intact dry tissue ? No Induration, Fluctuance or Warmth noted Goals of Treatment: ? off load pressure Right Ankle Etiology: ?DTI ?Present on Admission Wound Bed: Purple red nonblanchable intact tissue Drainage / Odor: None Edges: ? irregular Calli wound: intact dry tissue ? No Induration, Fluctuance or Warmth noted Goals of Treatment: ? off load pressure Right Heel Etiology: Stage 1 Pressure injury ?Present on Admission Wound Bed: red pink intact slow to blanchable intact tissue Drainage / Odor: None Edges: ? irregular Calli wound: intact dry tissue ? No Induration, Fluctuance or Warmth noted Goals of Treatment: ? off load pressure Left heel redness noted - slow to wendy but remains intact and blanchable at this time - preventative foam applied. Recommendations: 1. Turn and Reposition every 2 hours and as needed for patient comfort.? Use pillows or wedges to support off loading positions. 2. Off Load all bony prominences with use of pillows and heel boots if needed.? Apply Preventative foams where needed. ? 3. Monitor for incontinence and moisture control, use barrier creams when needed for prevention and treatment. 4. Provide adequate and supplemental nutrition.? 5. Continue low air loss mattress. 6. When applicable maintain blood glucose levels per Providers order. Sacrum - Off Load Pressure with Q2 hr turns and use of pillows - ?Apply skin prep allow to dry. Apply foam dressing to aid in off loading and protection from friction. Change every 3 days and PRN. Right Ankle and Bilateral Heels - Apply skin prep allow to dry - apply heel foam dressing, elevate off of bed surface in heel boot protectors. Peel back foam Qshift and change every 5 days and PRN. Right Arm skin tear - Cleanse with normal saline, pat dry. ?Apply Xeroform secure with Abd pads, gauze wrap and tape. Change Daily. ?Do not apply tape to patient?s skin.? Avoid Adhesive application to skin - when necessary, apply skin prep prior.? Re-consult wound care Nurse for wound deterioration or wound changes.
--- NOTE | 2024-08-18 18:23 | PC.NURSE ---
Extensive mouth care done to the patient, copius mucus cleaned and suctioned. patient tolerated it well.
[2024-08-18 18:47] VITALS: BP 129/99; PULSE 74; RESP 20; TEMP 36.8; O2SAT 95
[2024-08-19] MEDS: Dextrose 5 % 1,000 ML 125 ML IVCONT ×3 (00:16→16:59)
[2024-08-19] MEDS: 0.9 % Sodium Chloride Flush 3 ML SYRINGE IVFLUSH (00:17)
[2024-08-19] MEDS: Piperacillin Sodium/Tazobactam 3.375 GM in 0.9 % Sodium Chloride 50 ML IV ×3 (00:28→11:37)
[2024-08-19 04:00] VITALS: BP 142/67; PULSE 77; RESP 18; TEMP 36.7; O2SAT 94
[2024-08-19 06:49] VITALS: BP 132/74; PULSE 72; RESP 16; TEMP 36.6; O2SAT 97
[2024-08-19 10:29] LABS: Hematocrit 34.2 % (42.0-52.0); Hemoglobin 12.1 g/dl (14.0-18.0); Mean Corpuscular HGB Conc 35.4 g/dl (31.0-36.0); Mean Corpuscular Hemoglobin 32.7 pg (27.0-33.0); Mean Corpuscular Volume 92.4 fL (80.0-98.0); Mean Platelet Volume 11.1 fL (9.4-12.4); Platelet Count 149 X10*3/uL (160-400); Red Cell Distribution Width 13.2 % (11.0-16.0); White Blood Count 11.7 X10*3/uL (4.8-10.8)
--- NOTE | 2024-08-19 10:40 | MHC.SLORD ---
Speech Language Pathology Order Status: GARBAGE TRUCK HELPER attempted eval this morning, pt not waking to participate. RN consulted, GARBAGE TRUCK HELPER available to evaluate pt when appropriate.
--- NOTE | 2024-08-19 11:01 | MHC.CM.PN ---
Per MD rounds patient not medically cleared for dc. DP: Return to LTC @ [facility]. CM will continue to follow.
[2024-08-19 11:02] LABS: Anion Gap 11 (12-20); Blood Urea Nitrogen 18 mg/dL (9-16); Calcium 8.7 mg/dL (8.4-10.2); Carbon Dioxide 24 mmol/L (22-29); Chloride 113 mmol/L (96-108); Estimated Glomerular Filt Rate > 60; Glucose Random 145 mg/dL (60-115); Magnesium 1.9 mg/dL (1.6-2.6); Potassium 2.8 mmol/L (3.3-5.1); Sodium 145 mmol/L (135-145)
[2024-08-19] MEDS: Potassium Chloride/H20 10 MEQ/100 ML PIGGYBACK 100 MEQ IV ×4 (12:25→16:02)
[2024-08-19] MEDS: Enoxaparin Sodium 40 MG/0.4 ML SYRINGE SUBCUT (13:44)
--- NOTE | 2024-08-19 13:46 | MHC.CLN ---
F/U PATIENT NOT WAKING FOR SETTER HELPER TODAY AND UNABLE TO ASSESS CONTINUES NPO PENDING SWALLOW EVAL. PT WITH INCREASED NUTRITION RISK R/T PRESSURE INJURY WHEN DIET TO ADVANCE, RECOMMEND ADDING MAGIC CUP TID TO PROMOTE WOUND HEALING SUPP TO PROVIDE 870KCALS, 27G PROTEIN PATIENT HX OF DISLIKING ENSURE FOLLOW FOR DIET ADVANCEMENT AND SKIN INTEGRITY.
--- NOTE | 2024-08-19 14:11 | HO.PM.IMPN ---
Subjective Subjective Date of Service: 08/19/24 Interval History: seen and evaluated sleepy and frail difficult to arouse Sodium elevated and potassium trending down no other events Review of Systems Review of Systems: Yes all other systems are reviewed and are negative Physical Exam Vital Signs: Vital Signs: Last Vital Signs Temp 98 F 08/19/24 06:49 Pulse 72 08/19/24 06:49 Resp 16 08/19/24 06:49 BP 132/74 08/19/24 06:49 Pulse Ox 97 08/19/24 06:49 O2 Del Method Oxymask 08/19/24 06:49 O2 Flow Rate 2 08/19/24 04:00 Oxygen Flow Rate 10 08/17/24 11:05 BMI result Body Mass Index 21.8 Const: Other: Constitutional : sleepy, answering with 1-2 words , not in distress Cardiovascular : no JVP, no lower extremity edema Respiratory : bilateral chest movement, not in resp distress Gastrointestinal: soft, lax, Non tender Skin : Warm, Dry Neurological : altered & oriented to self only , No focal deficit Objective Data Active Medications Acetaminophen (Acetaminophen 325 Mg Tablet) 650 mg PO Q6H PRN PRN Reason: Pain, Mild 1-3,fever,headache Bisacodyl (Bisacodyl 10 Mg Supp.Rect) 10 mg AR DAILY PRN PRN Reason: Constipation Calcium Carbonate (Calcium Carbonate 750 Mg Tab.Chew) 750 mg PO Q4H PRN PRN Reason: Heartburn Clonidine (Clonidine 0.1 Mg Patch.Tdwk) 0.1 mg TRANSDERMA TH@0900 [facility]; Protocol Enoxaparin Sodium (Enoxaparin Sodium 40 Mg/0.4 Ml Syringe) 40 mg SUBCUT Q24H [facility] Last Admin: 08/19/24 13:44 Dose: 40 mg Documented By: WILMA Dextrose (D5w) 1,000 mls @ 125 mls/hr IVCONT .Q8H [facility] Stop: 08/19/24 22:00 Last Admin: 08/19/24 08:46 Dose: 125 mls/hr Documented By: WILMA Potassium Chloride (Potassium Chloride/H20) 10 meq in 100 mls @ 100 mls/hr IV Q1H [facility] Stop: 08/19/24 16:14 Last Admin: 08/19/24 13:44 Dose: 100 mls/hr Documented By: WILMA Piperacillin Sod/Tazobactam (Sod 4.5 gm/ Sodium Chloride) 100 mls @ 200 mls/hr IV Q6H [facility]UAN PABLO Magnesium Hydroxide (Milk Of Magnesia 30 Ml Oral.Susp) 30 ml PO DAILY PRN PRN Reason: Constipation Melatonin (Melatonin 3 Mg Tablet) 6 mg PO BEDTIME PRN PRN Reason: Insomnia Mirtazapine (Mirtazapine 15 Mg Tablet) 15 mg PO BEDTIME [facility] Last Admin: 08/18/24 20:22 Dose: Not Given Documented By: ANTDANNY Non-Admin Reason: NPO Ondansetron HCl (Ondansetron Hcl 4 Mg/2 Ml Vial) 4 mg IVPUSH Q8H PRN PRN Reason: Nausea and Vomiting Polyethylene Glycol (Polyethylene Glycol 3350 17 Gm Powd.Pack) 17 gm PO DAILY [facility] Last Admin: 08/19/24 08:34 Dose: Not Given Documented By: WILMA Non-Admin Reason: NPO Sodium Chloride (0.9 % Sodium Chloride Flush 3 Ml Syringe) 3 ml IVFLUSH QSHIFT [facility] Last Admin: 08/19/24 07:58 Dose: Not Given Documented By: WILMA Non-Admin Reason: IV Running Trazodone HCl (Trazodone Hcl 25 Mg Halftab) 25 mg PO BID PRN PRN Reason: Anxiety Labs 08/19/24 10:17 08/19/24 10:17 Labs: Laboratory Results - last 24 hr 08/19/24 10:17 MCV 92.4 MCH 32.7 MCHC 35.4 RDW 13.2 Plt Count 149 L MPV 11.1 Absolute Nucleated RBC 0.000 Nucleated RBC % (auto) 0.0 Anion Gap 11 L Estim Creat Clear Calc 87.0 Estimated GFR > 60 Random Glucose 145 H Calcium 8.7 Magnesium 1.9 Microbiology Microbiology Results: Microbiology 08/17/24 11:23 Blood Culture - Preliminary Blood - Venous No growth after 48 hours. 08/17/24 11:17 Blood Culture - Final Blood - Venous Coag negative Staphylococcus 08/17/24 Unknown Urine Culture - Final Urine Catheterized - Luo Catheter No growth. Assessment and Plan (1) Acute hypoxic respiratory failure: Status: Acute (2) Acute UTI: Status: Acute (3) Aspiration pneumonia: Status: Acute (4) Acute hypokalemia: Status: Acute Plan 84M PMH Alzheimer's dementia with behavioral disturbances, hypertension, dysphagia, failure to thrive presented with altered mental status and hypoxia Sepsis, acute hypoxic respiratory failure, acute metabolic encephalopathy due to aspiration pneumonia and urinary tract infection Continue Zosyn, follow up cultures continue to wean as tolerated Metabolic Encephalopathy due to acute hypernatremia improving due to poor intake continue D5W, monitor Acute kidney injury Due to dehydration, resolved with IV fluids acute hypokalemia K of 2.8, replacement given Elevated troponin Likely type 2 - demand ischemia Alzheimer's dementia Risk for delirium, monitor DVT prophylaxis with Lovenox Full Code reason for continued hospitalization: Hypoxia, hypernatremia Quality Stroke Does the patient have a stroke diagnosis?: No VTE Prior VTE?: No VTE Risk Level:: Medical - moderate - high VTE Device Contraindication: Treatment Not Indicated VTE Drug Contraindication: N/A - Med Ordered
[2024-08-19 15:14] VITALS: BP 155/76; PULSE 75; RESP 20; TEMP 36.8; O2SAT 95
[2024-08-19] MEDS: Piperacillin Sodium/Tazobactam 4.5 GM in 0.9 % Sodium Chloride 100 ML IV ×2 (18:29→23:35)
[2024-08-19 19:06] VITALS: BP 152/68; PULSE 67; RESP 20; TEMP 37.1; O2SAT 94
[2024-08-19] MEDS: Morphine Sulfate 2 MG/ML CARTRIDGE 1 MG IVPUSH (21:55)
[2024-08-20 04:00] VITALS: BP 152/82; PULSE 86; RESP 16; TEMP 36.1; O2SAT 93
[2024-08-20] MEDS: Piperacillin Sodium/Tazobactam 4.5 GM in 0.9 % Sodium Chloride 100 ML IV ×4 (05:14→23:22)
[2024-08-20 06:51] LABS: MANUAL DIFF FLAG NO
[2024-08-20 06:54] LABS: Basophils Absolute Auto 0.1 X10*3/uL (0.0-0.2); Basophils Percent Auto 0.6 % (0-2); Eosinophils Percent Auto 0.3 % (0-4); Hematocrit 37.7 % (42.0-52.0); Hemoglobin 12.6 g/dl (14.0-18.0); Imm Gran Abs Auto 0.08 X10*3/uL (0.00-0.03); Imm Gran Pct Auto 0.8 % (0.0-0.4); Lymphocytes Absolute Auto 0.7 X10*3/uL (1.2-4.9); Lymphocytes Percent Auto 6.7 % (20-40); Mean Corpuscular HGB Conc 33.4 g/dl (31.0-36.0); Mean Corpuscular Hemoglobin 31.6 pg (27.0-33.0); Mean Corpuscular Volume 94.5 fL (80.0-98.0); Mean Platelet Volume 11.2 fL (9.4-12.4); Monocytes Absolute Auto 0.4 X10*3/uL (0.1-1.2); Neutrophils Absolute Auto 8.5 x10*3/uL (2.0-8.3); Neutrophils Percent Auto 87.6 % (45-73); Platelet Count 147 X10*3/uL (160-400); Red Blood Count 3.99 X10*6/uL (4.60-5.80); Red Cell Distribution Width 13.1 % (11.0-16.0); White Blood Count 9.7 X10*3/uL (4.8-10.8)
[2024-08-20 07:04] VITALS: BP 120/58; PULSE 80; RESP 16; TEMP 36.6; O2SAT 94
[2024-08-20 07:11] LABS: Blood Urea Nitrogen 13 mg/dL (9-16); Calcium 8.6 mg/dL (8.4-10.2); Creatinine Clr Calc Pharmacy 93.4; Estimated Glomerular Filt Rate > 60; Glucose Random 114 mg/dL (60-115)
[2024-08-20 07:18] LABS: Anion Gap 13 (12-20); Carbon Dioxide 23 mmol/L (22-29); Chloride 107 mmol/L (96-108); Potassium 3.7 mmol/L (3.3-5.1); Sodium 139 mmol/L (135-145)
[2024-08-20 10:00] VITALS: BP 144/63; PULSE 70; RESP 14; TEMP 36.3; O2SAT 94
[2024-08-20] MEDS: cloNIDine 0.1 MG PATCH.TDWK TRANSDERMA (10:37)
--- NOTE | 2024-08-20 11:52 | MHC.SL.SWA ---
Speech Pathologist Impression: Risk of Aspiration Due to: Medically Fragile History of Pneumonia Poor PO Intake Dysphasia Diet Status: Patient presents with high risk of aspiration secondary to difficulty with positioning for feeding and vulnerable respiratory condition. Recommend start/upgrade diet to PUREE (NDD1) with thin liquids (NO STRAWS by tsp or controlled cup sip only), pills crushed in puree. Liquid Consistency and Strategies for Safe Swallow: Liquid Intake Recommendation: Thin Liquid Intake Strategies: Small Sips No Straws Solid Food Consistency: Dietary Recommendations: Pureed (NDD1) Additional Modifications to Solid Foods: Patient will require very careful positioning for any feeding, and 1-1 assistance. DO NOT give liquid or food to patient in reclined position; patient should be at a minimum with head of bed at 70 degrees or greater if tolerated. Liquids by tsp or controlled cup sip, NO STRAWS. Patient will be difficult to feed, may be resistant to taking food. Oral Medication Intake: Crushed with Puree Please contact the pharmacy regarding appropriate crushable or liquid drug formulations that are available whenever modified delivery is recommended. Compensatory Strategies and Precautions to be Taken for Safe Swallow: Sitting Upright (90 deg) No Straw Liquids from Cup Small Bites and Sips Alternate Liquids/Solids Rate of Ingestion Change Supervision While Eating and Drinking for Safe Swallow: Total Assistance (1:1) Foods to Avoid: Recommend start on puree, FOOD CHEMIST will re-assess and advanced diet as tolerated. Swallowing Recommended Treatments: Compens. Strategy Educat. Recommendation for Speech: Inpatient Speech Therapy Speech Therapy through Rehab Facility Comment: Patient presents with high risk of aspiration secondary to difficulty with positioning for feeding and vulnerable respiratory condition. ? patient fed while lying down or in poor position at LTC facility. Patient also with HX FTT, is resistant at times to meals/feeding. Recommend start/upgrade diet to PUREE (NDD1) with thin liquids (NO STRAWS by tsp or controlled cup sip only), pills crushed in puree. Patient will required very careful positioning for any meal, should be as upright in bed as tolerated (70 degrees or more) with care for lower limb contractures. Patient will need persistent encouragement to eat and direct 1-1 assistance. Patient currently 02 dependent, will need NC during meals or frequent breaks to 02 mask (monitor 02 sats closely while feeding, give breaks). Strict aspiration precautions. FOOD CHEMIST will continue to follow, re-assess and upgrade as warranted. /RD notified by secure text, RN in person. Frequency/Duration: Date Range for Service Req: Timeline to reassess: Supervisor Prep Clinican/Clinical Fellow: No Supervisory Statement: I have reviewed and agree with the student/clinical fellow's documentation: N/A Speech Language Pathologist: Lili Jacobs M.A., CCC-FOOD CHEMIST
--- NOTE | 2024-08-20 14:16 | HO.PM.IMPN ---
Subjective Subjective Date of Service: 08/20/24 Interval History: seen and evaluated more alert but remains altered passed speech eval; to start diet Sodium elevated and potassium trending down no other events Review of Systems Review of Systems: Yes Unobtainable due to mental status Physical Exam Vital Signs: Vital Signs: Last Vital Signs Temp 97.3 F 08/20/24 10:00 Pulse 70 08/20/24 10:00 Resp 14 08/20/24 10:00 BP 144/63 H 08/20/24 10:00 Pulse Ox 94 08/20/24 10:00 O2 Del Method Oxymask 08/20/24 10:00 O2 Flow Rate 2 08/20/24 10:00 Oxygen Flow Rate 10 08/17/24 11:05 BMI result Body Mass Index 21.8 Const: Other: Constitutional : encephalopathic , answering with 1-2 words , not in distress Cardiovascular : no JVP, no lower extremity edema Respiratory : bilateral chest movement, not in resp distress Gastrointestinal: soft, lax, Non tender Skin : Warm, Dry Neurological : altered & difficult to arouse , disoriented to self and place , No focal deficit Objective Data Active Medications Acetaminophen (Acetaminophen 325 Mg Tablet) 650 mg PO Q6H PRN PRN Reason: Pain, Mild 1-3,fever,headache Bisacodyl (Bisacodyl 10 Mg Supp.Rect) 10 mg [place] DAILY PRN PRN Reason: Constipation Calcium Carbonate (Calcium Carbonate 750 Mg Tab.Chew) 750 mg PO Q4H PRN PRN Reason: Heartburn Clonidine (Clonidine 0.1 Mg Patch.Tdwk) 0.1 mg TRANSDERMA TH@0900 [facility]; Protocol Last Admin: 08/20/24 10:37 Dose: 0.1 mg Documented By: WILMA Enoxaparin Sodium (Enoxaparin Sodium 40 Mg/0.4 Ml Syringe) 40 mg SUBCUT Q24H [facility] Last Admin: 08/19/24 13:44 Dose: 40 mg Documented By: WILMA Piperacillin Sod/Tazobactam (Sod 4.5 gm/ Sodium Chloride) 100 mls @ 200 mls/hr IV Q6H [facility] Last Infusion: 08/20/24 12:49 Dose: Infused Documented By: WILMA Magnesium Hydroxide (Milk Of Magnesia 30 Ml Oral.Susp) 30 ml PO DAILY PRN PRN Reason: Constipation Melatonin (Melatonin 3 Mg Tablet) 6 mg PO BEDTIME PRN PRN Reason: Insomnia Mirtazapine (Mirtazapine 15 Mg Tablet) 15 mg PO BEDTIME [facility] Last Admin: 08/18/24 20:22 Dose: Not Given Documented By: JIM Non-Admin Reason: NPO Morphine Sulfate (Morphine Sulfate 2 Mg/Ml Cartridge) 1 mg IVPUSH Q4H PRN; Protocol PRN Reason: Pain, Severe (Pain Scale 7-10) Last Admin: 08/19/24 21:55 Dose: 1 mg Documented By: MARILEE Ondansetron HCl (Ondansetron Hcl 4 Mg/2 Ml Vial) 4 mg IVPUSH Q8H PRN PRN Reason: Nausea and Vomiting Polyethylene Glycol (Polyethylene Glycol 3350 17 Gm Powd.Pack) 17 gm PO DAILY [facility] Last Admin: 08/20/24 08:46 Dose: Not Given Documented By: WILMA Non-Admin Reason: NPO Sodium Chloride (0.9 % Sodium Chloride Flush 3 Ml Syringe) 3 ml IVFLUSH QSHIFT [facility] Last Admin: 08/20/24 08:46 Dose: Not Given Documented By: WILMA Non-Admin Reason: Previously Administered Trazodone HCl (Trazodone Hcl 25 Mg Halftab) 25 mg PO BID PRN PRN Reason: Anxiety Labs 08/20/24 06:22 08/20/24 06:22 Labs: Laboratory Results - last 24 hr 08/20/24 06:22 MCV 94.5 MCH 31.6 MCHC 33.4 RDW 13.1 Plt Count 147 L MPV 11.2 Immature Gran % (Auto) 0.8 H Neut % (Auto) 87.6 H Lymph % (Auto) 6.7 L [place] % (Auto) 4.0 Eos % (Auto) 0.3 Baso % (Auto) 0.6 Lymph # (Auto) 0.7 L [place] # (Auto) 0.4 Eos # (Auto) 0.0 Baso # (Auto) 0.1 Abs Immat Gran (auto) 0.08 H Absolute Neuts (auto) 8.5 H Absolute Nucleated RBC 0.000 Nucleated RBC % (auto) 0.0 Anion Gap 13 Estim Creat Clear Calc 93.4 Estimated GFR > 60 Random Glucose 114 Calcium 8.6 Microbiology Microbiology Results: Microbiology 08/17/24 11:23 Blood Culture - Preliminary Blood - Venous No growth after 48 hours. 08/17/24 11:17 Blood Culture - Final Blood - Venous Coag negative Staphylococcus Assessment and Plan (1) Acute hypokalemia: Status: Acute (2) Acute hypoxic respiratory failure: Status: Acute (3) Acute UTI: Status: Acute (4) Aspiration pneumonia: Status: Acute (5) Cognitive and behavioral changes: Status: Acute Plan 84M PMH Alzheimer's dementia with behavioral disturbances, hypertension, dysphagia, failure to thrive presented with altered mental status and hypoxia Sepsis, acute hypoxic respiratory failure, acute metabolic encephalopathy due to aspiration pneumonia negative blood and urine cultures Continue Zosyn, follow up cultures continue to wean as tolerated Metabolic Encephalopathy due to acute hypernatremia Sodium back to normal still altered, will need recurrent redirection avoid sedating meds Swallowing problem SUPERVISOR PAINT DEPARTMENT rec NDD1 for now Acute kidney injury Due to dehydration, resolved with IV fluids acute hypokalemia resolved Elevated troponin Likely type 2 - demand ischemia Alzheimer's dementia Risk for delirium, monitor DVT prophylaxis with Lovenox Full Code reason for continued hospitalization: Hypoxia, hypernatremia, Swallowing problem, IV antibiotics for pneumonia Quality Stroke Does the patient have a stroke diagnosis?: No VTE Prior VTE?: No VTE Risk Level:: Medical - moderate - high VTE Device Contraindication: Treatment Not Indicated VTE Drug Contraindication: N/A - Med Ordered
[2024-08-20 15:02] VITALS: BP 153/74; PULSE 70; RESP 18; TEMP 36.2; O2SAT 96
[2024-08-20] MEDS: Enoxaparin Sodium 40 MG/0.4 ML SYRINGE SUBCUT (15:36)
[2024-08-20 20:00] VITALS: BP 162/67; PULSE 67; RESP 18; TEMP 36.3; O2SAT 94
[2024-08-20] MEDS: 0.9 % Sodium Chloride Flush 3 ML SYRINGE IVFLUSH (23:22)
[2024-08-21 03:32] VITALS: BP 132/62; PULSE 69; RESP 18; TEMP 36.2; O2SAT 93
[2024-08-21] MEDS: Piperacillin Sodium/Tazobactam 4.5 GM in 0.9 % Sodium Chloride 100 ML IV ×4 (05:12→23:41)
[2024-08-21 07:38] VITALS: BP 164/70; PULSE 67; RESP 17; TEMP 36.6; O2SAT 93
[2024-08-21] MEDS: polyethylene glycoL 3350 17 GM POWD.PACK PO (08:04)
[2024-08-21] MEDS: 0.9 % Sodium Chloride Flush 3 ML SYRINGE IVFLUSH ×3 (08:04→23:44)
[2024-08-21 09:34] LABS: Anion Gap 14 (12-20); Blood Urea Nitrogen 12 mg/dL (9-16); Calcium 8.7 mg/dL (8.4-10.2); Carbon Dioxide 26 mmol/L (22-29); Chloride 108 mmol/L (96-108); Creatinine Clr Calc Pharmacy 95.1; Estimated Glomerular Filt Rate > 60; Glucose Random 88 mg/dL (60-115); Potassium 3.5 mmol/L (3.3-5.1); Sodium 144 mmol/L (135-145)
--- NOTE | 2024-08-21 11:42 | MHC.SL.SWA ---
Speech Pathologist Impression: Risk of Aspiration, Oropharyngeal Dysphagia Risk of Aspiration Due to: Medically Fragile History of Pneumonia Poor PO Intake Dysphasia Diet Status: No Change Liquid Consistency and Strategies for Safe Swallow: Liquid Intake Recommendation: Thin Liquid Intake Strategies: Small Sips No Straws Solid Food Consistency: Dietary Recommendations: Pureed (NDD1) Additional Modifications to Solid Foods: Patient presents with high risk of aspiration secondary to difficulty with positioning for feeding and vulnerable respiratory condition. ? patient fed while lying down or in poor position at LTC facility. Patient also with HX FTT, is resistant at times to meals/feeding. Recommend start/upgrade diet to PUREE (NDD1) with thin liquids (NO STRAWS by tsp or controlled cup sip only), pills crushed in puree. Patient will required very careful positioning for any meal, should be as upright in bed as tolerated (70 degrees or more) with care for lower limb contractures. Patient will need persistent encouragement to eat and direct 1-1 assistance. Patient currently 02 dependent, will need NC during meals or frequent breaks to 02 mask (monitor 02 sats closely while feeding, give breaks). Strict aspiration precautions. COMPLAINT OPERATOR will continue to follow, re-assess and upgrade as warranted. MD/RD notified by secure text, RN in person. Oral Medication Intake: Crushed with Puree Please contact the pharmacy regarding appropriate crushable or liquid drug formulations that are available whenever modified delivery is recommended. Compensatory Strategies and Precautions to be Taken for Safe Swallow: Sitting Upright (90 deg) Small Bites and Sips Rate of Ingestion Change Supervision While Eating and Drinking for Safe Swallow: Total Assistance (1:1) Foods to Avoid: Recommend start on puree, COMPLAINT OPERATOR will re-assess and advanced diet as tolerated. Swallowing Recommended Treatments: Compens. Strategy Educat. Recommendation for Speech: Inpatient Speech Therapy Speech Therapy through Rehab Facility Slab Off Mill Tender Clinican/Clinical Fellow: No Supervisory Statement: I have reviewed and agree with the student/clinical fellow's documentation: N/A Speech Language Pathologist: Tita Milner M.A., [facility]3]-COMPLAINT OPERATOR
--- NOTE | 2024-08-21 13:14 | MHC.CLN ---
F/U SEEN BY SUPERVISOR SHUTTLE FITTING WITH DIET UPGRADE TO PUREE CONSISTENCY. PT WITH DTI TO SACRUM AND R ANKLE. ADDING MAGIC CUP TID TO PROMOTE WOUND HEALING AND NUTRITIONAL INTAKE. SUPPLEMENT PROVIDES 870 KCALS, 27 G PROTEIN. HX OF DISLIKING ENSURE SUPPLEMENT. CURRENT PO POOR. FOLLOW FOR DIET TOLERANCE, PO INTAKE AND SKIN INTEGRITY.
--- NOTE | 2024-08-21 14:09 | MHC.CM.PN ---
Per MD, not medically cleared for dc. [facility] updated.
--- NOTE | 2024-08-21 14:52 | P.PNIM_ITS ---
Subjective Subjective Date of Service: 08/21/24 Interval History: Seen and evaluated more alert but remains altered passed speech eval; tolerating NDD1 diet electrolytes improved no other events Review of Systems Review of Systems: Yes Unobtainable due to mental status Physical Exam 2 Vital Signs: Vital Signs: Last Vital Signs Temp 97.9 F 08/21/24 07:38 Pulse 67 08/21/24 07:38 Resp 17 08/21/24 07:38 BP 164/70 H 08/21/24 07:38 Pulse Ox 93 08/21/24 07:38 O2 Del Method Room Air 08/21/24 07:38 O2 Flow Rate 2.0 08/20/24 15:02 Oxygen Flow Rate 10 08/17/24 11:05 BMI result Body Mass Index 21.8 Const: Other: Constitutional : altered, response to stimuli , answering with 1-2 words , not in distress Cardiovascular : no JVP, no lower extremity edema Respiratory : bilateral chest movement, not in resp distress Gastrointestinal: soft, lax, Non tender Skin : Warm, Dry Neurological : altered & difficult to arouse , disoriented to self and place , No focal deficit Objective Data Active Medications Acetaminophen (Acetaminophen 325 Mg Tablet) 650 mg PO Q6H PRN PRN Reason: Pain, Mild 1-3,fever,headache Bisacodyl (Bisacodyl 10 Mg Supp.Rect) 10 mg [place] DAILY PRN PRN Reason: Constipation Calcium Carbonate (Calcium Carbonate 750 Mg Tab.Chew) 750 mg PO Q4H PRN PRN Reason: Heartburn Clonidine (Clonidine 0.1 Mg Patch.Tdwk) 0.1 mg TRANSDERMA TH@0900 [facility]; Protocol Last Admin: 08/20/24 10:37 Dose: 0.1 mg Documented By: WILMA Enoxaparin Sodium (Enoxaparin Sodium 40 Mg/0.4 Ml Syringe) 40 mg SUBCUT Q24H [facility] Last Admin: 08/20/24 15:36 Dose: 40 mg Documented By: WILMA Piperacillin Sod/Tazobactam (Sod 4.5 gm/ Sodium Chloride) 100 mls @ 200 mls/hr IV Q6H [facility] Last Infusion: 08/21/24 11:41 Dose: Infused Documented By: TAWNYA Magnesium Hydroxide (Milk Of Magnesia 30 Ml Oral.Susp) 30 ml PO DAILY PRN PRN Reason: Constipation Melatonin (Melatonin 3 Mg Tablet) 6 mg PO BEDTIME PRN PRN Reason: Insomnia Mirtazapine (Mirtazapine 15 Mg Tablet) 15 mg PO BEDTIME [facility] Last Admin: 08/18/24 20:22 Dose: Not Given Documented By: TOMOINC Non-Admin Reason: NPO Morphine Sulfate (Morphine Sulfate 2 Mg/Ml Cartridge) 1 mg IVPUSH Q4H PRN; Protocol PRN Reason: Pain, Severe (Pain Scale 7-10) Last Admin: 08/19/24 21:55 Dose: 1 mg Documented By: MARILEE Ondansetron HCl (Ondansetron Hcl 4 Mg/2 Ml Vial) 4 mg IVPUSH Q8H PRN PRN Reason: Nausea and Vomiting Polyethylene Glycol (Polyethylene Glycol 3350 17 Gm Powd.Pack) 17 gm PO DAILY [facility] Last Admin: 08/21/24 08:04 Dose: 17 gm Documented By: TAWNYA Sodium Chloride (0.9 % Sodium Chloride Flush 3 Ml Syringe) 3 ml IVFLUSH QSHIFT [facility] Last Admin: 08/21/24 08:04 Dose: 3 ml Documented By: TAWNYA Trazodone HCl (Trazodone Hcl 25 Mg Halftab) 25 mg PO BID PRN PRN Reason: Anxiety Labs 08/20/24 06:22 08/21/24 09:13 Labs: Laboratory Results - last 24 hr 08/21/24 09:13 Anion Gap 14 Estim Creat Clear Calc 95.1 Estimated GFR > 60 Random Glucose 88 Calcium 8.7 Assessment and Plan (1) Acute hypokalemia: Status: Acute (2) Acute hypoxic respiratory failure: Status: Acute (3) Acute UTI: Status: Acute (4) Aspiration pneumonia: Status: Acute (5) Cognitive and behavioral changes: Status: Acute (6) Toxic metabolic encephalopathy: Status: Acute Plan 84M PMH Alzheimer's dementia with behavioral disturbances, hypertension, dysphagia, failure to thrive presented with altered mental status and hypoxia Sepsis, acute hypoxic respiratory failure, acute metabolic encephalopathy due to aspiration pneumonia negative blood and urine cultures Continue Zosyn, follow up cultures Weaned off O2 Acute toxic Metabolic Encephalopathy due to acute hypernatremia Sodium back to normal DC Clonidine patch still altered, will need recurrent redirection avoid sedating meds Swallowing problem BUSINESS DEVELOPMENT DIRECTOR rec NDD1 for now Acute kidney injury Due to dehydration, resolved with IV fluids acute hypokalemia resolved Elevated troponin Likely type 2 - demand ischemia Alzheimer's dementia Risk for delirium, monitor DVT prophylaxis with Lovenox Full Code reason for continued hospitalization: Encephalopathy, Swallowing problem, IV antibiotics for pneumonia Quality Stroke Does the patient have a stroke diagnosis?: No VTE Prior VTE?: No VTE Risk Level:: Medical - moderate - high VTE Device Contraindication: Treatment Not Indicated VTE Drug Contraindication: N/A - Med Ordered
[2024-08-21] MEDS: amLODIPine Besylate 5 MG TABLET PO (15:27)
[2024-08-21] MEDS: Enoxaparin Sodium 40 MG/0.4 ML SYRINGE SUBCUT (15:27)
[2024-08-21 15:50] VITALS: BP 164/73; PULSE 75; RESP 18; TEMP 36.5; O2SAT 92
--- NOTE | 2024-08-21 18:23 | P.CDIM_ITS ---
PROVIDER RESPONSE TEXT: To clarify, the appropriate diagnosis supported by the clinical indicators: Pressure (decubitus) ulcer, DTI sacrum QUERY TEXT: PHYSICIAN'S DOCUMENTATION REQUEST Date of Query: 08/20/2024 12:41 PM EDT Patient Name: Pernell Yung Admit Date: 08/17/2024 Dear Lucia Roberson MD, A review of the medical record indicates additional documentation may be needed. Please review below and update the documentation accordingly. Clinical Indicators: Per Wound note 08/18/24: DTI sacrum, present on admission off load pressure Based on the above, could you please provide further information regarding the ulcer/wound: Pressure (decubitus) ulcer, DTI sacrum Other (explain) Clinically unable to determine (explain) Thank you, Dariana Neff RN Use of terms such as suspected, likely, concern for, or probable (associated with a specific diagnosi s that is being evaluated, monitored, or treated as if it exists) are acceptable and can be coded in the inpatient se tting, when documented at the time of discharge. Please use your independent medical judgment in providing your response. THIS QUERY IS PART OF THE PERMANENT MEDICAL RECORD
[2024-08-21 19:35] VITALS: BP 128/56; PULSE 96; RESP 18; TEMP 37.1; O2SAT 91
--- NOTE | 2024-08-21 22:00 | PC.NURSE ---
This RN assumed care at 1900, unable to assess mentation pt does not respond to questions or commands. Pt unable to report pain, pt appears to be resting comfortable, pain increased when being repositioned, repositioning Q2hr, DTI injuries to R ankle/coccyx, bruising to upper extremities, air boots on b/l feet to off load pressure. Pt is incontinent with a brief in place, pt bedbound and does not get out of bed. VSS stable, resting comfortable at this time, with no distress noted.
[2024-08-22 03:09] VITALS: BP 142/69; PULSE 75; RESP 14; TEMP 36.2; O2SAT 99
[2024-08-22] MEDS: Piperacillin Sodium/Tazobactam 4.5 GM in 0.9 % Sodium Chloride 100 ML IV ×2 (05:04→12:24)
[2024-08-22 06:56] LABS: Anion Gap 12 (12-20); Blood Urea Nitrogen 11 mg/dL (9-16); Calcium 8.2 mg/dL (8.4-10.2); Carbon Dioxide 24 mmol/L (22-29); Chloride 111 mmol/L (96-108); Creatinine Clr Calc Pharmacy 95.1; Estimated Glomerular Filt Rate > 60; Glucose Random 121 mg/dL (60-115); Potassium 2.8 mmol/L (3.3-5.1); Sodium 144 mmol/L (135-145)
[2024-08-22 07:22] VITALS: BP 137/63; PULSE 60; RESP 12; TEMP 37.1; O2SAT 93
[2024-08-22] MEDS: Potassium Chloride/H20 10 MEQ/100 ML PIGGYBACK 100 MEQ IV ×4 (08:11→11:19)
[2024-08-22] MEDS: amLODIPine Besylate 5 MG TABLET PO (08:16)
[2024-08-22] MEDS: Potassium Chloride Packet 20 MEQ PACKET 40 MEQ PO (08:16)
[2024-08-22] MEDS: 0.9 % Sodium Chloride Flush 3 ML SYRINGE IVFLUSH (08:17)
[2024-08-22] MEDS: Acetaminophen 325 MG TABLET 650 MG PO (08:19)
--- NOTE | 2024-08-22 13:58 | MHC.CM.PN ---
IMM 08/22/24 Per MD patient is ready to dc today. He will return to [facility] via BLS. His guardian has been notified of the discharge. FAX DC Summary [phone]. 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
[2024-08-22] MEDS: Enoxaparin Sodium 40 MG/0.4 ML SYRINGE SUBCUT (14:24)
--- NOTE | 2024-08-22 14:42 | PM.DS ---
DS: Providers Provider Date of Service: 08/22/24 Date of admission: 08/17/24 15:18 Date of discharge: 08/22/24 Primary care physician: Shannan Ling MD Consults: 08/17/24 22:42 Consult to Wound Care Routine Reason for consultation: multiple skin issues 08/19/24 01:32 Consult to Wound Care Routine Reason for consultation: blanchable redness to buttocks, ?DTI to R ankle/heel, skin tear RFA 08/22/24 00:52 Consult to Wound Care Routine Reason for consultation: DTI: R ankle & coccyx DS: Diagnosis Discharge Diagnosis (1) Acute hypokalemia: Status: Acute (2) Acute hypoxic respiratory failure: Status: Acute (3) Acute UTI: Status: Acute (4) Aspiration pneumonia: Status: Acute (5) Cognitive and behavioral changes: Status: Acute (6) Toxic metabolic encephalopathy: Status: Acute (7) Sepsis: Status: Acute DS: Summary Hospital Course Hospital Course: Admission note HPI Pt is an 84-year-old male with a PMH significant for Alzheimer's dementia with behavioral disturbances, HTN, dysphagia, and adult failure to thrive?who presents to the ED from [facility] for evaluation of altered mental status and hypoxia. Pt is awake and alert but not oriented or following commands. HPI taken from chart and provider review. Staff at SNF report pt awoke this morning apparently in his normal state of health. After eating breakfast pt was noted to be both altered and hypoxic, satting as low as 83% on RA. EMS put pt on non-rebreather at 10 L with saturation at 93%. Of note, pt was a long-term resident on the medical floor for 6 months before guardianship was obtained and pt was discharged to SNF 1 month ago. Upon discharge pt was in NND3 diet. In the ED pt was febrile up to 102.7, tachycardic up to 122, tachypneic up to 24, hypertensive up to 142/71, and satting at 96% on 10 L non-rebreather. Labs were significant for leukocytosis of 11.0, sodium 152, BUN 40, creatinine 1.46, initial lactic acid 4.4 with repeat 4.7, AST 47, initial troponin 67.9 with repeat 76.0, albumin 3.0. UA positive for nitrites, leukocyte esterase, WBCs 11-20, but negative for bacteria. Tested negative for flu, COVID, RSV. CT of head negative for acute intracranial abnormality. CXR showing parenchymal opacity in left mid and lower lung suspicious for pneumonia. CT of chest showing extensive consolidative opacities throughout left lower lobe findings consistent with aspiration pneumonitis. Also showed moderate to severe paraseptal emphysema with bullous changes in right lower lobe. CTA of abdomen/pelvis negative for acute inflammatory abnormality though did show constipation/obstipation. EKG demonstrated sinus tachycardia of 120 without evidence of significant ST elevations or depressions. Pt was treated in the ED with acetaminophen IV, 2 L IVF, and Zosyn. Pt is admitted to the hospital for treatment and further evaluation of acute hypoxic respiratory failure and acute metabolic encephalopathy in the setting of likely aspiration pneumonia with sepsis. Hospital course The patient was admitted for treatment of Sepsis complicated by acute hypoxic respiratory failure due to aspiration pneumonia. negative blood and urine cultures. Treated with IV Zosyn with good response over the course of hospital stay as he was Weaned off O2 and his mentation improved back to baseline. For Acute toxic Metabolic Encephalopathy due to acute hypernatremia and sepsis it improved back to baseline with treatment of infection and improving Sodium back to normal with IV fluids. We discontinued his Clonidine patch as it might affect his mentation and make him more drowsy and confused. Started Amlodipine 5 mg daily for blood pressure control. avoid sedating medications at [facility]. He was evaluated by Speech therapy team for Swallowing problem and aspiration. recommended NDD1 with thin liquids for now. To be followed by speech therapy at [facility] Noted to have Acute kidney injury on presentation due to dehydration, resolved with IV fluids. His blood work showed acute hypokalemia that resolved with IV and oral supplement of potassium. Discharge plan Discontinue Clonidine patch as it is affecting his mentation Amlodipine 5 mg for blood pressure control Continue Augmentin for 5 more days NDD1 pureed diet for now. advance as recommended by speech therapy Time Attestation Discharge Coordination Time (in mins): 42 Quality: Safe Use of Opioids Does Pt have an Active Cancer Diagnosis on the Problem List?: No Quality: Stroke Does the patient have a stroke diagnosis?: No Physical Exam Vital Signs: Vital Signs: Last Vital Signs Temp 98.7 F 08/22/24 07:22 Pulse 60 08/22/24 07:22 Resp 12 08/22/24 07:22 BP 137/63 08/22/24 07:22 Pulse Ox 93 08/22/24 07:22 O2 Del Method Room Air 08/22/24 07:22 O2 Flow Rate 2.0 08/20/24 15:02 Oxygen Flow Rate 10 08/17/24 11:05 BMI result Body Mass Index 21.8 Const: Other: Constitutional : alert , answering questions, confused , not in distress Cardiovascular : no JVP, no lower extremity edema Respiratory : bilateral chest movement, not in resp distress , fair bilateral air entry, LLL fine crackles Gastrointestinal: soft, lax, Non tender Skin : Warm, Dry Neurological : alert, oriented to self disoriented to time and place , No focal deficit DS: Data Data Completed and Pending Completed studies during hospitalization [Text1]: Procedures Drainage of Spinal Canal, Percutaneous Approach, Diagnostic (02/14/24) Fluoroscopy of Spinal Cord (02/14/24) Labs on day of discharge: Laboratory Results - last 24 hr 08/22/24 08/22/24 06:00 06:08 Hold Purple Top SEE NOTE Sodium 144 Potassium 2.8 L* Chloride 111 H Carbon Dioxide 24 Anion Gap 12 BUN 11 Creatinine 0.54 Estim Creat Clear Calc 95.1 Estimated GFR > 60 Random Glucose 121 H Calcium 8.2 L Imaging Chest x-ray: Radiologist's impression: ITS Impressions Chest X-Ray 08/17/24 11:30 IMPRESSION: There is parenchymal opacity in the left mid and lower lung suspicious for pneumonia. Electronically signed by: Errol Alonso MD 08/17/2024 11:44 AM EDT RP Abdomen/Pelvis CT 08/17/24 11:32 IMPRESSION: 1. Limited examination due to moderate motion degradation. 2. No acute inflammatory abnormality in the abdomen or pelvis. 3. Constipation/obstipation. 4. Cholecystectomy. 5. Colonic diverticulosis without evidence of acute diverticulitis. 6. Additional ancillary findings as discussed in the body of the report. Also, refer to the dedicated chest CT performed concurrently. Electronically signed by: Errol Alonso MD 08/17/2024 12:26 PM EDT RP Chest CT 08/17/24 11:39 IMPRESSION: 1. Examination limited by moderate respiratory motion artifact. 2. Moderate to severe paraseptal emphysema with bullous changes in the right lower lobe. 3. Extensive consolidative opacities throughout the left lower lobe, involving the lingula and posterior left upper lobe, involving the subpleural right lower lobe. Findings are keeping with focal pneumonitis, with aspiration within the differential. 4. There is no effusion or pneumothorax. 5. Ancillary findings as discussed in the body of the report. Electronically signed by: Errol Alonso MD 08/17/2024 12:19 PM EDT RP Head CT 08/17/24 11:39 IMPRESSION: No acute intracranial abnormality. Electronically signed by: Errol Alonso MD 08/17/2024 12:11 PM EDT RP Discharge Plan Discharge Anticipated Discharge Date/Time: 08/22/24 14:22 Patient Disposition: er [facility] Discharge Diagnosis: Aspiration pneumonia Altered mentation Referrals: [facility] [Outside] - 1 Week Shannan Ling MD [Primary Care Provider] - 1 Week Discharge Medications: New amlodipine 5 mg Tablet 5 mg PO DAILY Qty: 90 0RF Protocol: Hold for SBP< HOLD for SBP < : 90 amoxicillin-pot clavulanate 400-57 mg/5 mL suspension for reconstitution 10 ml PO BID Qty: 100 0RF Continued bisacodyl 10 mg Suppository 10 mg VA DAILY PRN (Reason: Constipation) Rx Instructions: If no BM for 8 hours after M.O.M polyethylene glycol 3350 17 gram Powder In Packet 17 g PO DAILY Qty: 0 0RF acetaminophen 325 mg Tablet 650 mg PO Q6H PRN (Reason: Headache/Pain (Scale Score 1-3)) magnesium hydroxide [Milk of Magnesia] 400 mg/5 mL Suspension 30 ml PO DAILY PRN (Reason: Constipation) Rx Instructions: (Step 1) If no BM for 3 days mirtazapine [Remeron] 15 mg Tablet 15 mg PO BEDTIME trazodone 50 mg Tablet 25 mg PO BID PRN (Reason: Anxiety) melatonin 3 mg Tablet 6 mg PO BEDTIME Discontinued clonidine 0.1 mg/24 hr patch weekly 0.1 mg transdermal TH@0900 Protocol: Hold for SBP< HOLD for SBP < : 90 Stand Alone Forms: Patient Portal Discharge page Print Language: Unable To Collect Care Plan Goals: Discontinue Clonidine patch as it is affecting his mentation Amlodipine 5 mg for blood pressure control Continue Augmentin for 5 more days NDD1 pureed diet for now. advance as recommended by speech therapy Health Concerns: Aspiration pneumonia Plan of Treatment: Antibiotics Assessment: as above
[2024-08-22 14:58] VITALS: BP 146/67; PULSE 84; RESP 16; TEMP 36.2; O2SAT 93
[2024-08-22 17:51] VITALS: BP 150/80; PULSE 74; RESP 16; TEMP 36.8; O2SAT 93
== END 2024-08-22 18:03 | DRG 871 ==
LOC: HO.ED 15:12 → HO.EDOVER 15:19 → HO.S3 19:06
PROVIDERS: Internal Medicine; Physician Assistant; Admitting Provider Student in an Organized Health Care Education/Training Program; Emergency Provider Emergency Medicine Emergency Medical Services; PCP Internal Medicine; Visit Provider Student in an Organized Health Care Education/Training Program
DX: A41.9 Sepsis, unspecified organism (principal); G92.8 Other toxic encephalopathy; J69.0 Pneumonitis due to inhalation of food and vomit; J96.01 Acute respiratory failure with hypoxia; F02.818 Dementia in other diseases classified elsewhere, unspecified severity, with other behavioral disturbance; N39.0 Urinary tract infection, site not specified; N17.9 Acute kidney failure, unspecified; E87.0 Hyperosmolality and hypernatremia; I24.89 Other forms of acute ischemic heart disease; L89.156 Pressure-induced deep tissue damage of sacral region; E86.0 Dehydration; E87.6 Hypokalemia; R13.10 Dysphagia, unspecified; G30.9 Alzheimer's disease, unspecified; E86.1 Hypovolemia; K59.00 Constipation, unspecified; Z20.822 Contact with and (suspected) exposure to COVID-19; Z79.899 Other long term (current) drug therapy
CPT/HCPCS: 0241U; 36415; 70450; 71045; 71250; 74176; 80048; 80053; 81001; 82140; 82803; 83605; 83690; 83735; 83880; 84484; 85007; 85025; 85027; 85610; 87040; 87086; 87147; 87205; 92526; 92610; 93005; 99285; J0131; J1650; J2270; J2543; J3480; J7120

== ENCOUNTER → 2024-08-17 11:14 | Outpatient (BNV) | payer MEDICARE, SELFPAY | PROVIDERS: Emergency Provider Emergency Medicine Emergency Medical Services; PCP Internal Medicine; Visit Provider Internal Medicine Cardiovascular Disease | DX: R00.0 Tachycardia, unspecified (principal) | CPT/HCPCS: 93010 ==

== ENCOUNTER → 2024-08-17 11:21 | Outpatient (BNV) | payer MEDICARE, SELFPAY | PROVIDERS: Emergency Provider Emergency Medicine Emergency Medical Services; PCP Internal Medicine; Visit Provider Radiology Diagnostic Radiology | DX: K59.00 Constipation, unspecified (principal); K57.30 Diverticulosis of large intestine without perforation or abscess without bleeding; Z90.49 Acquired absence of other specified parts of digestive tract; J43.8 Other emphysema; R41.82 Altered mental status, unspecified; R91.8 Other nonspecific abnormal finding of lung field | CPT/HCPCS: 70450; 71045; 71250; 74176 ==

== ENCOUNTER → 2024-08-17 15:18 | Outpatient (BNV) | payer MEDICARE, SELFPAY | PROVIDERS: Admitting Provider Student in an Organized Health Care Education/Training Program; Emergency Provider Emergency Medicine Emergency Medical Services; PCP Internal Medicine; Visit Provider Student in an Organized Health Care Education/Training Program | DX: J69.0 Pneumonitis due to inhalation of food and vomit (principal); J96.01 Acute respiratory failure with hypoxia | CPT/HCPCS: 99223 ==

== ENCOUNTER 2024-09-04 16:46 | Inpatient (IN) | payer MEDICARE, SELFPAY ==
[2024-09-04] VITALS (8 sets, daily range): BP systolic 114–162; BP diastolic 62–84; PULSE 80–118; RESP 17–23; TEMP 37.7–39.2; O2SAT 95–98; BMI 17.4
--- NOTE | ~2024-09-04 | CT_ITS ---
CLINICAL HISTORY: elevated LFTS, fever, pt non verbal CT abdomen and pelvis without contrast Comparison: CT/AK/SR - CT ABDOMEN PELVIS WO IV CON - 08/17/24 11:39 EDT Findings: Decreased, moderate left basilar airspace opacity. Calcification of the coronary vasculature. Cholecystectomy. Solid organs are within normal limits. No bowel obstruction, pneumoperitoneum, or pneumatosis. Pelvic contents unremarkable. Normal appendix. No acute fracture. IMPRESSION: 1. Decreased left basilar pneumonia. 2. Coronary artery disease. This document has been electronically signed by: Ladonna Chang MD on 09/04/2024 19:50:29
--- NOTE | ~2024-09-04 | XR_ITS ---
CLINICAL HISTORY: leukocytosis, cough 1 view chest x-ray Comparison: CT/CO/SR - CT CHEST WO IV CON - 08/17/24 11:39 EDT CR/SR - XR CHEST 1V - 08/17/24 11:26 EDT Findings: Decreased, moderate patchy left mid and upper lung opacity, allowing for differences in modality. Heart size is normal. No acute fracture. IMPRESSION: Resolving left lung pneumonia. Continued plain film follow-up is recommended to ensure resolution, and to exclude underlying neoplasm. This document has been electronically signed by: Ladonna Chang MD on 09/04/2024 17:57:16
--- NOTE | 2024-09-04 16:58 | ECG_ITS ---
Test Reason : weakness Blood Pressure : */* mmHG Vent. Rate : 111 BPM Atrial Rate : 111 BPM P-R Int : 146 ms QRS Dur : 80 ms QT Int : 330 ms P-R-T Axes : 35 48 70 degrees QTcB Int : 448 ms Sinus tachycardia Nonspecific ST abnormality Abnormal ECG When compared with ECG of 17-Aug-2024 11:14, No significant change was found Referred By: Nahed Hudson Electronically Signed By: MEG KILGORE MD
[2024-09-04 17:26] LABS: MANUAL DIFF FLAG NO
[2024-09-04] MEDS: cefTRIAXone sodium 1 GM VIAL IVPUSH (17:26)
[2024-09-04 17:27] LABS: Basophils Percent Auto 0.2 % (0-2); Hematocrit 49.1 % (42.0-52.0); Imm Gran Abs Auto 0.25 X10*3/uL (0.00-0.03); Imm Gran Pct Auto 1.5 % (0.0-0.4); Lymphocytes Absolute Auto 0.9 X10*3/uL (1.2-4.9); Lymphocytes Percent Auto 5.3 % (20-40); Mean Corpuscular HGB Conc 32.6 g/dl (31.0-36.0); Mean Corpuscular Volume 95.2 fL (80.0-98.0); Mean Platelet Volume 10.9 fL (9.4-12.4); Monocytes Absolute Auto 0.9 X10*3/uL (0.1-1.2); Monocytes Percent Auto 5.5 % (2-11); Neutrophils Absolute Auto 14.6 x10*3/uL (2.0-8.3); Neutrophils Percent Auto 87.5 % (45-73); Platelet Count 322 X10*3/uL (160-400); Red Blood Count 5.16 X10*6/uL (4.60-5.80); Red Cell Distribution Width 13.7 % (11.0-16.0); White Blood Count 16.7 X10*3/uL (4.8-10.8)
[2024-09-04] MEDS: 0.9 % Sodium Chloride 2,000 ML 999 ML IVCONT (17:28)
[2024-09-04 17:29] LABS: Appearance Urine Cloudy; Color Urine Dark Yellow; Glucose Urine UA Negative (Negative); Leukocyte Esterase Urine Moderate (2+) (Negative); Nitrite Urine Positive (Negative); PH 5.5 (5.0-9.0); Specific Gravity - Urine 1.025 (1.005-1.025); UMIC TRIGGER UACC YES; Urine Blood Moderate (2+) (Negative); Urine Ketones 15 mg/dL (Negative); Urine Protein 30 (1+) mg/dL (Neg-Trace)
--- NOTE | 2024-09-04 17:37 | PC.NURSE ---
Arrived via ems from [facility] in [place]. Per ems staff stating patients had an increased WBC and decline over last few days. Patient responsive upon arrival only to painful stimuli. MD at bedside to assess patient. straight cathed for 100mls of dark yellow urine. Multiple areas of pressure injuries to bilateral feet. Heels floated off bed
--- OUTSIDE RECORDS SUMMARY | 2024-09-04 17:41 | XMS_ITS | Encounter Summary ---
Author Organization [employer] Address [address] [place] [address] Care Team Providers Care Still Operator Name Role Phone Thania Whittington GLORIA Primary Care Provider [phone] Encounter Details Date Type Department Care Team (Late st Contact Info) Description 08/24/2024 Lab Requisition [facility] - Main Lab [address] [place] [address] Rebecca Ling MD [address] [address] Chronic obstructive pulmonary disease, unspecified (CMS/HCC V24, CMS/HCC V28) Social History Tobacco Use Types Packs/Day [...] Associated Diagnosis Comments COMPLETE BLOOD COUNT Routine 08/24/2024 11:20 AM EDT Chronic obstructive pulmonary disease, unspecified (CMS/HCC V24, CMS/HCC V28) BASIC METABOLIC PANEL Routine 08/24/2024 11:20 AM EDT Chronic obstructive pulmonary disease, unspecified (CMS/HCC V24, CMS/HCC V28) documented in this encounter Results * (ABNORMAL) Basic metabolic panel (08/24/2024 11:20 AM EDT) Sodium 146(H) 133 - 145 mmol/L LAB CHEMISTRY METHOD 08/24/2024 2:14 PM EDT [facility] Potassium 4.4 3.5 - 5.5 mmol/L LAB CHEMISTRY METHOD 08/24/2024 2:14 PM [facility] Chloride 115(H) 96 - 110 mmol/L LAB CHEMISTRY METHOD 08/24/2024 2:14 PM [facility] CO2 24 21 - 32 mmol/L LAB CHEMISTRY METHOD 08/24/2024 2:14 PM [facility] Anion Gap 7 3 - 11 LAB CHEMISTRY METHOD 08/24/2024 2:14 PM [facility] Glucose 93 70 - 100 mg/dL LAB CHEMISTRY METHOD 08/24/2024 2:14 PM [facility] BUN 11 5 - 25 mg/dL LAB CHEMISTRY METHOD 08/24/2024 2:14 PM [facility] Creatinine 0.41(L) 0.70 - 1.30 mg/dL LAB CHEMISTRY METHOD 08/24/2024 2:14 PM [facility] eGFR 107 >=60 mL/min/1. 73m2 LAB CHEMISTRY METHOD 08/24/2024 2:14 PM T [facility] LAB Comment:Calculation based on the??Chronic Kidney Disease Epidemiology Collaboration (CKD-EPI) equation refit??without adjustment for race. BUN/Creatinine Ratio 26.8 LAB CHEMISTRY METHOD 08/24/2024 2:14 PM [facility] Calcium 8.3(L) 8.5 - 10.5 mg/dL LAB CHEMISTRY METHOD 08/24/2024 2:14 PM T [facility] Blood Venous blood specimen / Unknown Venipuncture / Unknown 08/24/2024 11:20 AM EDT 08/24/2024 12:49 PM EDT us Rebecca Ling MD LAB BLOOD ORDERABLES Fin al Result [facility] [address] [place] [address], * (ABNORMAL) Complete blood count (08/24/2024 11:20 AM EDT) [facility] WBC 11.0(H) 4.8 - 10.8 K/mcL LAB HEMETOLOGY METHOD 08/24/2024 1:56 PM [facility] RBC 4.00(L) 4.50 - 5.50 M/mcL LAB [facility]OLOG[facility] Hemoglobin 12.7(L) 13.5 - 17.5 g/dL LAB HEMETOLOGY METHOD 08/24/2024 1:56 PM [facility] Hematocrit 37.3(L) 42.0 - 54.0 % LAB HEMETOLOGY METHOD 08/24/2024 1:56 PM [facility] MCV 93.7 79.0 - 98.0 FL LAB HEMETOLOGY METHOD [facility] MCH 31.9 27.0 - 32.0 pcg LAB HEMETOLOGY METHOD 08/24/2024 1:56 PM [facility] MCHC 34.0 32.0 - 37.0 g/dL LAB HEMETOLOGY METHOD 08/24/2024 1:56 PM [facility] RDW 13.4 11.0 - 15.0 % LAB HEMETOLOGY METHOD 08/24/2024 1:56 PM [facility] Platelets 444(H) 130 - 400 K/mcL LAB HEMETOLOGY METHOD 08/24/2024 1:56 PM [facility] MPV 9.8 7.0 - 11.0 FL LAB HEMETOLOGY METHOD 08/24/2024 1:56 PM [facility] NRBC 0.0 <1.0 % LAB HEMETOLOGY METHOD 08/24/2024 1:56 PM EDT [facility] NRBC Absolute 0.00 <0.10 K/mcL LAB HEMETOLOGY METHOD 08/24/2024 1:56 PM EDT [facility] Blood Venous blood specimen / Unknown Venipuncture / Unknown 08/24/2024 11:20 AM EDT 08/24/2024 12:49 PM EDT us Rebecca Ling MD LAB BLOOD ORDERABLES Fin al Result [facility] [address] [place] [address], documented in this encounter Visit Diagnoses Diagnosis Chronic obstructive pulmonary disease, unspecified (CMS/HCC V24, CMS/HCC V28) documented in this encounter Care Teams Still Operator Relationship Specialty Start Date End Date Thania Whittington NP [address] [place] [address] PCP - General Nurse Practitioner 08/11/24 documented as of this encounter
--- OUTSIDE RECORDS SUMMARY | 2024-09-04 17:41 | XMS_ITS | Encounter Summary ---
Author Organization [facility] Address [address] [place] [address] Care Team Providers Care Technical Services Manager Name Role Phone Thania Whittington NP Primary Care Provider [phone] Encounter Details Date Type Department Care Team (Late st Contact Info) Description 08/11/[address] [facility] - Main Lab [address] [facility] [place] [address] Thania Whittington NP [address] [place] [address] Essential (primary) hypertension; Adult failure to thrive; Alzheimer's disease, unspecified (CODE) (CMS/[facility] V24, CMS/[facility] V28) Social History Tobacco Use Types Packs/Day [...] failure to thrive Alzheimer's disease, unspecified (CODE) ([facility] V24, [facility] V28) BASIC METABOLIC PANEL Routine 08/11/2024 7:42 AM EDT Essential (primary) hypertension Adult failure to thrive Alzheimer's disease, unspecified (CODE) (CMS/[facility] V24, [facility] V28) documented in this encounter Results * Folate (08/11/2024 7:42 AM EDT) [facility] Folate 7.7 2.8 - 17.0 ng/ml LAB CHEMISTRY METHOD 08/11/2024 11:44 AM EDT [facility] Blood Venous blood specimen / Unknown Venipuncture / Unknown 08/11/2024 7:42 AM EDT 08/11/2024 9:54 AM EDT us [facility] LAB BLOOD ORDERABLES Final Resul t Performing Organization Address City/[facility]/ZIP Co de Phone Number [facility] [address] [place] [address], [place] [phone] * Vitamin B12 (08/11/2024 7:42 AM EDT) [facility] Vitamin B-12 363 250 - 900 pcg/mL LAB CHEMISTRY METHOD 08/11/2024 11:44 AM EDT [facility] Blood Venous blood specimen / Unknown Venipuncture / Unknown 08/11/2024 7:42 AM EDT 08/11/2024 9:54 AM EDT [facility] LAB BLOOD ORDERABLES Final Resul t [facility] [address] [place] [address], [place] [phone] * Thyroid stimulating hormone (08/11/2024 7:42 AM EDT) [facility] TSH 2.49 0.40 - 4.00 mcIU/mL LAB CHEMISTRY METHOD 08/11/2024 1:01 PM [facility] Blood Venous blood specimen / Unknown Venipuncture / Unknown 08/11/2024 7:42 AM EDT 08/11/2024 9:54 AM EDT Thania Whittington NP LAB BLOOD ORDERABLES Final Resul t [facility] [address] [place] [address], * (ABNORMAL) Basic metabolic panel (08/11/2024 7:42 AM EDT) [facility] Sodium 142 133 - 145 mmol/L LAB CHEMISTRY METHOD 08/11/2024 11:22 AM [facility] Potassium 3.9 3.5 - 5.5 mmol/L LAB CHEMISTRY METHOD 08/11/2024 11:22 AM [facility] Chloride 108 96 - 110 mmol/L LAB CHEMISTRY METHOD 08/11/2024 11:22 AM [facility] CO2 29 21 - 32 mmol/L LAB CHEMISTRY METHOD 08/11/2024 11:22 AM [facility] Anion Gap 5 3 - 11 LAB CHEMISTRY METHOD 08/11/2024 11:22 AM [facility] Glucose 93 70 - 100 mg/dL LAB CHEMISTRY METHOD 08/11/2024 11:22 AM [facility] BUN 23 5 - 25 mg/dL LAB CHEMISTRY METHOD 08/11/2024 11:22 AM [facility] Creatinine 0.62(L) 0.70 - 1.30 mg/dL LAB CHEMISTRY METHOD 08/11/2024 11:22 AM [facility] eGFR 95 >=60 mL/min/1. 73m2 LAB CHEMISTRY METHOD 08/11/2024 11:22 AM EDT [facility] Comment:Calculation based on the??Chronic Kidney Disease Epidemiology Collaboration (CKD-EPI) equation refit??without adjustment for race. BUN/Creatinine Ratio 37.1 LAB CHEMISTRY METHOD 08/11/2024 11:22 AM EDT [facility] Calcium 9.3 8.5 - 10.5 mg/dL LAB CHEMISTRY METHOD 08/11/2024 11:22 AM EDT [facility] Blood Venous blood specimen / Unknown Venipuncture / Unknown 08/11/2024 7:42 AM EDT 08/11/2024 9:54 AM EDT Thania Whittington [employer]ITCH[employer] LAB BLOOD ORDERABLES Final Resul t [facility] [address] [place] [address], * Complete blood count (08/11/2024 7:42 AM EDT) WBC 9.0 4.8 - 10.8 K/mcL LAB HEMETOLOGY METHOD 08/11/2024 10:27 AM [facility] RBC 4.50 4.50 - 5.50 M/mcL LAB HEMETOLOGY METHOD 08/11/2024 10:27 AM [facility] Hemoglobin 14.3 13.5 - 17.5 g/dL LAB HEMETOLOGY METHOD 08/11/2024 10:27 AM [facility] Hematocrit 43.3 42.0 - 54.0 % LAB HEMETOLOGY METHOD 08/11/2024 10:27 AM [facility] MCV 95.4 79.0 - 98.0 FL LAB HEMETOLOGY METHOD 08/11/2024 10:27 AM [facility] MCH 31.5 27.0 - 32.0 pcg LAB HEMETOLOGY METHOD 08/11/2024 10:27 AM EDT [facility] MCHC 33.0 32.0 - 37.0 g/dL LAB HEMETOLOGY METHOD 08/11/2024 10:27 AM EDT [facility] RDW 13.2 11.0 - 15.0 % LAB HEMETOLOGY METHOD 08/11/2024 10:27 AM EDT [facility] Platelets 235 130 - 400 K/mcL LAB HEMETOLOGY METHOD 08/11/2024 10:27 AM EDT [facility] MPV 10.9 7.0 - 11.0 FL LAB HEMETOLOGY METHOD 08/11/2024 10:27 AM EDT [facility] NRBC 0.0 <1.0 % LAB HEMETOLOGY METHOD 08/11/2024 10:27 AM EDT [facility] NRBC Absolute 0.00 <0.10 K/mcL LAB HEMETOLOGY METHOD 08/11/2024 10:27 AM EDT [facility] Blood Venous blood specimen / Unknown Venipuncture / Unknown 08/11/2024 7:42 AM EDT 08/11/2024 9:54 AM EDT Thania Whittington NP LAB BLOOD ORDERABLES Final Resul t [facility] [address] [place] [address], documented in this encounter Visit Diagnoses Diagnosis Essential (primary) hypertension Unspecified essential hypertension Adult failure to thrive Alzheimer's disease, unspecified (CODE) (CMS/HCC V24, CMS/HCC V28) documented in this encounter Care Teams Technical Services Manager Relationship Specialty Start Date End Date Thania Whittington NP [address] [place] [address] PCP - General Nurse Practitioner 08/11/24 documented as of this encounter
--- OUTSIDE RECORDS SUMMARY | 2024-09-04 17:41 | XMS_ITS | Clinical Summary ---
Author Organization [facility] Address [address] [place] [address] Phone Care Team Providers Care Fuels Engineer Name Role Phone AutomaticallyONE, SignedONE Unavailable Conditions or Problems Problem Name Problem Code Onset Date Status Entry Date Provider Comment Standard Description Annotate ELEVATED LIVER ENZYMES 888983679 (SNOMED CT) 06/25 Active 06/25 Chiki Christianson DO Liver enzymes level above reference range BENIGN OBSTRUCTIVE JAUNDICE 81574277 (SNOMED CT) 06/25 Active 06/25 Chiki Christianson DO Obstructive hyperbilirubinem ia ACUTE GANGRENOUS CHOLECYSTITI S 73547470 (SNOMED CT) 06/10 Inactive 06/19 Harriett Burnard AUTOMATED PROCESS OPERATOR Acute gangrenous cholecystitis ACUTE GANGRENOUS CHOLECYSTITI S 68636031 (SNOMED CT) 06/10 Inactive 06/19 Harriett Burnard AUTOMATED PROCESS OPERATOR Acute gangrenous cholecystitis Medications Medication Instructions Start Date Stop Date Generic Name ND Provider ROXICODONE 5 MG ORAL TABLET one po q4hrs prn pain- no drinking or drivng while on ain meds 8 OXYCODONE HCL [id number] Jamel Kate MD ROXICODONE 5 MG ORAL TABLET one po q4hrs prn pain- no drinking or drivng while on ain meds 8 OXYCODONE HCL [id number] Jamel Kate MD Medications Administered No information [...] Procedures Code Procedure Name Date Entry Date [id number] Patient encounter procedure [id number] Patient encounter procedure Vital Signs Date Name [...]
--- OUTSIDE RECORDS SUMMARY | 2024-09-04 17:41 | XMS_ITS | Encounter Summary ---
Author Organization [facility] Address [address] [place] [address] Care Team Providers Care Varnish Finisher Name Role Phone Thania Whittington GLORIA Primary Care Provider [phone] Encounter Details Date Type Department Care Team (Late st Contact Info) Description 09/04/2024 Lab Requisition [facility] - Main Lab [address] [place] [address] Rebecca Ling MD [address] [address] Unspecified infectious disease; Fever, unspecified Social History Tobacco Use Types Packs/Day Years [...] Date/Time Associated Diagnosis Comments COMPLETE BLOOD COUNT STAT 09/04/2024 10:20 AM EDT Unspecified infectious disease Fever, unspecified COMPREHENSIVE METABOLIC PANEL STAT 09/04/2024 10:20 AM EDT Unspecified infectious disease Fever, unspecified documented in this encounter Results * (ABNORMAL) Comprehensive metabolic panel (09/04/2024 10:20 AM EDT) Sodium 149(H) 133 - 145 mmol/L LAB CHEMISTRY METHOD 09/04/2024 11:44 AM EDT [facility] Potassium 3.5 3.5 - 5.5 mmol/L LAB CHEMISTRY METHOD 09/04/2024 11:44 AM EDT [facility] Chloride 118(H) 96 - 110 mmol/L LAB CHEMISTRY METHOD 09/04/2024 11:44 AM [facility] CO2 24 21 - 32 mmol/L LAB CHEMISTRY METHOD 09/04/2024 11:44 AM [facility] Anion Gap 7 3 - 11 LAB CHEMISTRY METHOD 09/04/2024 11:44 AM [facility] Glucose 196(H) 70 - 100 mg/dL LAB CHEMISTRY METHOD 09/04/2024 11:44 AM [facility] BUN 27(H) 5 - 25 mg/dL LAB CHEMISTRY METHOD 09/04/2024 11:44 AM [facility] Creatinine 0.71 0.70 - 1.30 mg/dL LAB CHEMISTRY METHOD 09/04/2024 11:44 AM [facility] eGFR 91 >=60 mL/min/1. 73m2 LAB CHEMISTRY METHOD 09/04/2024 11:44 AM [facility] Comment:Calculation based on the Chronic Kidney Disease Epidemiology Collaboration (CKD-EPI) equation refit without adjustment for race. BUN/Creatinine Ratio 38.0 LAB CHEMISTRY METHOD 09/04/2024 11:44 AM [facility] Calcium 9.4 8.5 - 10.5 mg/dL LAB CHEMISTRY METHOD 09/04/2024 11:44 AM [facility] AST (SGOT) 59(H) 10 - 42 unit/L LAB CHEMISTRY METHOD 09/04/2024 11:44 AM [facility] ALT (SGPT) 55 10 - 60 unit/L LAB CHEMISTRY METHOD 09/04/2024 11:44 AM [facility] Alkaline Phosphatase 133(H) 42 - 121 unit/L LAB CHEMISTRY METHOD 09/04/2024 11:44 AM [facility] Total Protein 6.4 6.0 - 8.0 g/dL LAB CHEMISTRY METHOD 09/04/2024 11:44 AM [facility] Albumin 2.4(L) 3.2 - 5.0 g/dL LAB CHEMISTRY METHOD 09/04/2024 11:44 AM [facility] Total Bilirubin 1.1 0.0 - 1.4 mg/dL LAB CHEMISTRY METHOD 09/04/2024 11:44 AM [facility] Blood Venous blood specimen / Unknown Venipuncture / Unknown 09/04/2024 10:20 AM EDT 09/04/2024 11:00 AM EDT us Rebecca Ling MD LAB BLOOD ORDERABLES Fin al Result [facility] [address] [place] [address], * (ABNORMAL) Complete blood count (09/04/2024 10:20 AM EDT) WBC 15.8(H) 4.8 - 10.8 K/mcL LAB HEMETOLOGY METHOD 09/04/2024 11:03 AM [facility] RBC 4.50 4.50 - 5.50 M/mcL LAB HEMETOLOGY METHOD 09/04/2024 11:03 AM [facility] Hemoglobin 14.1 13.5 - 17.5 g/dL LAB HEMETOLOGY METHOD 09/04/2024 11:03 AM [facility] Hematocrit 43.5 42.0 - 54.0 % LAB HEMETOLOGY METHOD 09/04/2024 11:03 AM [facility] MCV 96.0 79.0 - 98.0 FL LAB HEMETOLOGY METHOD 09/04/2024 11:03 AM [facility] MCH 31.1 27.0 - 32.0 pcg LAB HEMETOLOGY METHOD 09/04/2024 11:03 AM [facility] MCHC 32.4 32.0 - 37.0 g/dL LAB HEMETOLOGY METHOD 09/04/2024 11:03 AM EDT [facility] RDW 13.6 11.0 - 15.0 % LAB HEMETOLOGY METHOD 09/04/2024 11:03 AM EDT [facility] Platelets 308 130 - 400 K/mcL [facility] 09/04/2024 11:03 AM EDT [facility] MPV 11.2(H) 7.0 - 11.0 FL LAB HEMETOLOGY METHOD 09/04/2024 11:03 AM EDT [facility] NRBC 0.0 <1.0 % [facility] 09/04/2024 11:03 AM EDT [facility] NRBC Absolute 0.00 <0.10 K/mcL LAB [facility] METHOD 09/04/2024 11:03 AM EDT [facility] Blood Venous blood specimen / Unknown Venipuncture / Unknown 09/04/2024 10:20 AM EDT 09/04/2024 11:00 AM EDT us Rebecca Ling MD LAB BLOOD ORDERABLES Fin al Result [facility] [address] [place] [address], documented in this encounter Visit Diagnoses Diagnosis Unspecified infectious disease Fever, unspecified documented in this encounter Care Teams Varnish Finisher Relationship Specialty Start Date End Date Thania Whittington NP [address] [place] [address] PCP - General Nurse Practitioner 08/11/24 documented as of this encounter
[2024-09-04 17:42] LABS: Alanine Aminotransferase 67 U/L (0-40); Albumin Level 3.5 g/dL (3.5-5.0); Alkaline Phosphatase 143 U/L (39-117); Anion Gap 22 (12-20); Aspartate Amino Transferase 91 U/L (5-37); Bilirubin Direct 0.6 mg/dL (0.0-0.5); Bilirubin Total 1.3 mg/dL (0.0-1.0); Blood Urea Nitrogen 28 mg/dL (9-16); Calcium 10.1 mg/dL (8.4-10.2); Carbon Dioxide 23 mmol/L (22-29); Chloride 116 mmol/L (96-108); Creatinine Clr Calc Pharmacy 47.6; Estimated Glomerular Filt Rate > 60; Glucose Random 156 mg/dL (60-115); Magnesium 2.3 mg/dL (1.6-2.6); Potassium 3.9 mmol/L (3.3-5.1); Sodium 157 mmol/L (135-145)
[2024-09-04 17:44] LABS: Bacteria Urine 2+ (None Seen); Squamous Epithelial Cell Urine 0-2 /HPF (0-2); UACC Culture Trigger YES; WBC Clumps Urine Present; WBC Urine 21-50 /HPF (0-5)
[2024-09-04 17:45] LABS: Lactic Acid 3.4 mmol/L (0.5-2.0)
--- NOTE | 2024-09-04 17:48 | PC.NURSE ---
provider aware of rectal temp
[2024-09-04 18:01] LABS: TSH reflex Free T4 1.93 uIU/mL (0.32-4.0)
--- NOTE | 2024-09-04 18:02 | ED_ITS ---
HPI - General Adult General Chief complaint: General Medical Stated complaint: ?sepsis from snf Time Seen by Provider: 09/04/24 16:47 Source: EMS Mode of arrival: EMS Limitations: other History of Present Illness ED Provider: Dr. Nahed Hudson HPI narrative: Patient comes to the emergency room via ambulance from a senior living facility. At baseline, patient is nonverbal, patient has dementia. According to the staff, they did blood work today and patient's white blood cell count was elevated. The staff reports that the patient has a bit more lethargic than usual and has been declining over the last 3-4 days. Patient is unable to give any significant history. EMS reported stable vitals when they picked up the patient. Of note, 2 weeks ago patient was discharged from this hospital. Patient was treated for hypokalemia, respiratory failure, aspiration pneumonia, UTI and sepsis. Related Data Home Medications ?Medication ?Instructions ?Recorded ?Confirmed acetaminophen 325 mg tablet 650 mg PO Q6H PRN Headache/Pain 02/14/24 08/17/24 (Scale Score 1-3) magnesium hydroxide 400 mg/5 mL 30 ml PO DAILY PRN Constipation 02/14/24 08/17/24 oral suspension (Milk of Magnesia) bisacodyl 10 mg rectal suppository 10 mg CO DAILY PRN Constipation 07/23/24 08/17/24 mirtazapine 15 mg tablet (Remeron) 15 mg PO BEDTIME 08/05/24 08/17/24 melatonin 3 mg tablet 6 mg PO BEDTIME 08/17/24 08/17/24 trazodone 50 mg tablet 25 mg PO BID PRN Anxiety 08/17/24 08/17/24 Previous Rx's ?Medication ?Instructions ?Recorded polyethylene glycol 3350 17 gram 17 g PO DAILY #0 ea 02/14/24 oral powder packet amlodipine 5 mg tablet 5 mg PO DAILY #90 tabs 08/22/24 amoxicillin 400 mg-potassium 10 ml PO BID #100 mL 08/22/24 clavulanate 57 mg/5 mL oral suspension Allergies Allergy/AdvReac Type Severity Reaction Status Date / Time No Known Allergies Allergy Verified 09/04/24 17:22 Review of Systems 2 Review of Systems: Yes Unobtainable due to mental status PMFSH Past Medical History Medical History Cognitive and behavioral changes Hypertension Dementia with behavioral disturbance Social History Social History Household Members: None Housing: [facility] Do you presently have visiting nurse or other home services: No (from snf) Alcohol intake: unknown Comment: bedside commode during daytime Patient Tobacco Use Status: Tobacco use Unknown Smoked in Last 30 Days: No Use of substances other than those prescribed or required for medical reasons: No Advance Directives: Yes Advance Directives on File: Yes Advance Directives Date on File: 05/29/24 service: No Sexual orientation: Straight/Heterosexual Physical Exam ED Vital Signs: Vital Signs - 24 hr 09/04/24 17:20 09/04/24 18:00 09/04/24 18:00 Temperature 102.6 F H 101 F H Pulse Rate 118 H 104 H 103 H Pulse Rate [Monitor] Respiratory Rate 22 H 17 18 Blood Pressure 114/71 140/64 H 140/64 H Pulse Oximetry 98 95 95 Oxygen Delivery Method Room Air Room Air Room Air 09/04/24 18:46 09/04/24 18:51 09/04/24 19:50 Temperature Pulse Rate 99 92 Pulse Rate [Monitor] 101 H Respiratory Rate Blood Pressure 162/69 H 157/62 H Pulse Oximetry 96 Oxygen Delivery Method Room Air 09/04/24 20:08 09/04/24 22:00 Temperature 100.0 F 99.8 F Pulse Rate 95 91 Pulse Rate [Monitor] Respiratory Rate 23 H 20 Blood Pressure 149/84 H 146/81 H Pulse Oximetry 96 96 Oxygen Delivery Method Room Air Room Air BMI result Body Mass Index 17.4 Const Other: Appearance: Alert. nonverbal, No acute distress. Eyes: Pupils equal, round and reactive to light. ENT: Pharynx normal. very dry mucous membranes Neck: Normal inspection. Neck supple. No lymph nodes noted. No crepitus CVS: Normal heart rate and rhythm. Pulses normal. Normal S1 and S2 Respiratory: No respiratory distress. Breath sounds normal. No Wheezing. No rales Abdomen: Soft and nontender. No rigidity. No distention. Skin: warm to touch Extremities: No lower extremity edema. No Lacerations. No Rash Neuro: unable to participating cranial nerve assessment Psych: calm Course Course Course Narrative: on physical exam, patient feels more warm than normal temperature. Rectal temp has been requested. Given patient's past medical history and recent admission to the hospital, patient has been started on empiric IV fluids and antibiotics. All of patient's labs and imaging pending Medications Administered Discontinued Medications Generic Name Dose Route Start Last Admin Trade Name Scott PRN Reason Stop Dose Admin Ceftriaxone Sodium 1 gm 09/04/24 16:58 09/04/24 17:26 Ceftriaxone Sodium 1 Gm Vial IVPUSH 09/04/24 16:59 1 gm ONCE ONE Administration Sodium Chloride 2,000 mls @ 999 mls/hr 09/04/24 16:58 09/04/24 18:35 Ns IVCONT 09/04/24 18:58 Infused .Q2H1M ONE Infusion Medical Decision Making Medical Decision Making [facility] Narrative: my interpretation of labs: Patient's white blood cell count 16.7, patient's sodium 157, chloride 116, lactic acid 3.4 patient's urinalysis positive for UTI. LFTs slightly bumped compared to previous labs. I reviewed patient's microbiology sensitivity. previously urine grew Klebsiella, sensitive to cephalosporins including ceftriaxone chest x-ray shows resolving left lung pneumonia CT scan of the abdomen Does not show any acute abnormality patient's BP stable I discussed the patient with Dr. Ibarra, patient being admitted to the hospitalist service Differential Diagnosis Differential Diagnoses: The differential diagnosis associated with the presentation includes ( UTI , sepsis, pneumonia) Admission/Observation Consideration of admission/observation: Escalation of care including admission/observation considered Consult Healthcare Provider Management of the patient was discussed with: Hospitalist Lab Data [facility] Lab Attestation statement: I reviewed the patient's lab results. 09/04/24 17:18 09/04/24 17:18 Labs: Lab Results 09/04/24 09/04/24 Range/Units 17:18 20:34 WBC 16.7 H (4.8-10.8) X10*3/uL RBC 5.16 D (4.60-5.80) X10*6/uL Hgb 16.0 D (14.0-18.0) g/dl Hct 49.1 D (42.0-52.0) % MCV 95.2 (80.0-98.0) fL MCH 31.0 (27.0-33.0) pg MCHC 32.6 (31.0-36.0) g/dl RDW 13.7 (11.0-16.0) % Plt Count 322 D (160-400) X10*3/uL MPV 10.9 (9.4-12.4) fL Immature Gran % (Auto) 1.5 H (0.0-0.4) % Neut % (Auto) 87.5 H (45-73) % Lymph % (Auto) 5.3 L (20-40) % Gage % (Auto) 5.5 (2-11) % Eos % (Auto) 0.0 (0-4) % Baso % (Auto) 0.2 (0-2) % Lymph # (Auto) 0.9 L (1.2-4.9) X10*3/uL [place]age # (Auto) 0.9 (0.1-1.2) X10*3/uL Eos # (Auto) 0.0 (0.0-0.4) X10*3/uL Baso # (Auto) 0.0 (0.0-0.2) X10*3/uL Abs Immat Gran (auto) 0.25 H (0.00-0.03) X10*3/uL Absolute Neuts (auto) 14.6 H (2.0-8.3) x10*3/uL Absolute Nucleated RBC 0.000 (0.0-0.012) X10*3/uL Nucleated RBC % (auto) 0.0 (0.0-0.2) /100WBC Sodium 157 H (135-145) mmol/L Potassium 3.9 D (3.3-5.1) mmol/L Chloride 116 H (96-108) mmol/L Carbon Dioxide 23 (22-29) mmol/L Anion Gap 22 H (12-20) BUN 28 H (9-16) mg/dL Creatinine 0.89 (0.5-1.4) mg/dL Estim Creat Clear Calc 47.6 Estimated GFR > 60 Random Glucose 156 H (60-115) mg/dL Lactic Acid 3.4 H* (0.5-2.0) mmol/L Lactic Acid F/U @ 2Hr 2.5 H* (0.5-2.0) mmol/L Calcium 10.1 D (8.4-10.2) mg/dL Magnesium 2.3 (1.6-2.6) mg/dL Total Bilirubin 1.3 H (0.0-1.0) mg/dL Direct Bilirubin 0.6 H (0.0-0.5) mg/dL AST 91 H (5-37) U/L ALT 67 H (0-40) U/L Alkaline Phosphatase 143 H (39-117) U/L Total Protein 8.0 (6.5-8.0) g/dL Albumin 3.5 (3.5-5.0) g/dL TSH 1.93 (0.32-4.0) uIU/mL Urine Color Dark Yellow Urine Appearance Cloudy Urine pH 5.5 (5.0-9.0) Ur Specific [place] 1.025 (1.005-1.025) Urine Protein 30 (1+) H (Neg-Trace) mg/dL Urine Glucose (UA) Negative (Negative) mg/dL Urine Ketones 15 (Negative) mg/dL Urine Blood Moderate (2+) H (Negative) Urine Nitrite Positive H (Negative) Ur Leukocyte Esterase Moderate (2+) H (Negative) Urine RBC 6-10 H (0-2) /HPF Urine WBC 21-50 (0-5) /HPF Urine WBC Clumps Present Ur Squamous Epith Cells 0-2 (0-2) /HPF Urine Bacteria 2+ (None Seen) Hyaline Casts 6-10 (0-2) /LPF Urine Yeast Present Influenza Type A (PCR) NEGATIVE (Negative) Influenza Type B (PCR) NEGATIVE (Negative) RSV RNA Qual (PCR) NEGATIVE (Negative) SARS-CoV-2 RNA (RT-PCR) NEGATIVE (Negative) Independent Interpretation I performed an independent interpretation of an: Plain X-Ray and CT Scan Radiology Impression Discussion of test interpretation with radiology: I have reviewed the radiologist's reading. Radiologist Impression: Decreased, moderate patchy left mid and upper lung opacity, allowing for differences in modality. Heart size is normal. No acute fracture. Decreased, moderate left basilar airspace opacity. Calcification of the coronary vasculature. Cholecystectomy. Solid organs are within normal limits. No bowel obstruction, pneumoperitoneum, or pneumatosis. Pelvic contents unremarkable. Normal appendix. No acute fracture. Critical Care Time Critical Care Time Critical Care Time: Yes Total Critical Care Time: 60 Attestation: I have personally provided critical care time. Time includes review of lab data, radiology results, discussion with consultants, and monitoring for potential decompensation. Intervention performed as documented. Discharge Plan Discharge Clinical Impression: Acute UTI, Fever, Acute hypernatremia, Acute dehydration Patient Disposition: Admitted As Inpatient Prescriptions: No Action bisacodyl 10 mg Suppository 10 mg CO DAILY PRN (Reason: Constipation) Rx Instructions: If no BM for 8 hours after M.O.M polyethylene glycol 3350 17 gram Powder In Packet 17 g PO DAILY Qty: 0 0RF acetaminophen 325 mg Tablet 650 mg PO Q6H PRN (Reason: Headache/Pain (Scale Score 1-3)) magnesium hydroxide [Milk of Magnesia] 400 mg/5 mL Suspension 30 ml PO DAILY PRN (Reason: Constipation) Rx Instructions: (Step 1) If no BM for 3 days mirtazapine [Remeron] 15 mg Tablet 15 mg PO BEDTIME trazodone 50 mg Tablet 25 mg PO BID PRN (Reason: Anxiety) melatonin 3 mg Tablet 6 mg PO BEDTIME amlodipine 5 mg Tablet 5 mg PO DAILY Qty: 90 0RF Protocol: Hold for SBP< HOLD for SBP < : 90 amoxicillin-pot clavulanate 400-57 mg/5 mL suspension for reconstitution 10 ml PO BID Qty: 100 0RF Print Language: Unable To Collect
[2024-09-04 18:04] LABS: Influenza A PCR NEGATIVE (Negative); Influenza B PCR NEGATIVE (Negative); Resp Syncy Virus RNA Qual PCR NEGATIVE (Negative); SARS COV2 PCR INHOUSE NEGATIVE (Negative)
[2024-09-04 19:24] LABS: Reflex Lactate? Lactic Acid Added
--- NOTE | 2024-09-04 19:56 | PC.NURSE ---
Patient is an 84-year-old male with a PMH significant for Alzheimer's dementia with behavioral disturbances, HTN, dysphagia, and adult failure to thrive?who presents to the ED from [facility] for evaluation of altered mental status and hypoxia presents from [facility] with ? UTI. Pt is awake and alert but not oriented or following commands, resistive to care. classroom monitor maintained and stach noted. Lungs with dependent BBR. Respirations even and non-labored. Abdomen flat, soft, non-tender with positive bowel sounds. Positive pedal pulses with no edema. Multiple areas of bruising, skin tears and scabbed areas noted.
[2024-09-04 20:59] LABS: ~Lactic Acid-LAB USE ONLY 2.5 mmol/L (0.5-2.0)
--- NOTE | 2024-09-04 22:40 | MHC.EDTECH ---
Patient inc stool and urine therefore patient changed and repositioned
[2024-09-04 22:46] LABS: Reflex Lactate? 2 Y
--- NOTE | 2024-09-04 23:02 | PM.IMHP ---
History of Present Illness Date of Service: 09/04/24 Chief Complaint: Fever This has a 84-year-old male with pertinent history of Alzheimer's dementia with behavioral disturbances, hypertension, dysphagia who was sent to the emergency department for evaluation of lethargy and fever. Unable to obtain history from the patient. History obtained from ER provider and chart review. Patient is only awake at the time of my evaluation. Not answering questions and not following commands. Patient is mostly nonverbal at baseline. He was sent from SNF as patient has been more lethargic than usual and also was found to be febrile. Blood work was done at outside facility and WBC was found to be elevated. Unable to obtain review of systems. In the emergency department, patient was found to be septic and urine concerning for UTI. Review of Systems Review of Systems: Yes Unobtainable due to mental condition and Unobtainable due to mental status PMFSH Medical History Cognitive and behavioral changes Hypertension Dementia with behavioral disturbance Pertinent family history: Unable to obtain Social History Household Members: None Housing: [facility] Care Do you presently have visiting nurse or other home services: No (from snf) Alcohol intake: unknown Comment: bedside commode during daytime Patient Tobacco Use Status: Tobacco use Unknown Smoked in Last 30 Days: No Use of substances other than those prescribed or required for medical reasons: No Advance Directives: Yes Advance Directives on File: Yes Advance Directives Date on File: 05/29/24 service: No Sexual orientation: Straight/Heterosexual Meds Allergies Allergy/AdvReac Type Severity Reaction Status Date / Time No Known Allergies Allergy Verified 09/04/24 17:22 Home Medications ?Medication ?Instructions ?Recorded ?Confirmed ?Last Taken ?Type acetaminophen 325 mg tablet 650 mg PO Q6H PRN Headache/Pain 02/14/24 08/17/24 Unknown History (Scale Score 1-3) magnesium hydroxide 400 mg/5 mL 30 ml PO DAILY PRN Constipation 02/14/24 08/17/24 Unknown History oral suspension (Milk of Magnesia) bisacodyl 10 mg rectal suppository 10 mg SC DAILY PRN Constipation 07/23/24 08/17/24 Unknown History mirtazapine 15 mg tablet (Remeron) 15 mg PO BEDTIME 08/05/24 08/17/24 Unknown History melatonin 3 mg tablet 6 mg PO BEDTIME 08/17/24 08/17/24 Unknown History trazodone 50 mg tablet 25 mg PO BID PRN Anxiety 08/17/24 08/17/24 Unknown History Physical Exam Vital Signs and Narrative: Vital Signs: Last Vital Signs Temp 99.8 F 09/04/24 22:00 Pulse 91 09/04/24 22:00 Resp 20 09/04/24 22:00 BP 146/81 H 09/04/24 22:00 Pulse Ox 96 09/04/24 22:00 O2 Del Method Room Air 09/04/24 22:00 BMI result Body Mass Index 17.4 Elderly male lying in bed in no distress Neck supple, no JVD Regular rate and rhythm, S1-S2 heard Regular breath sounds bilaterally, no wheezing or crackles appreciated Abdomen soft nontender, no guarding, no rigidity Patient is awake but does not answer questions, not following commands, unable to assess orientation Psych: Normal mood No pedal edema Results Labs 09/04/24 17:18 09/04/24 17:18 Labs: Laboratory Results - last 24 hr 09/04/24 09/04/24 17:18 20:34 MCV 95.2 MCH 31.0 MCHC 32.6 RDW 13.7 Plt Count 322 D MPV 10.9 Immature Gran % (Auto) 1.5 H Neut % (Auto) 87.5 H Lymph % (Auto) 5.3 L [place] % (Auto) 5.5 Eos % (Auto) 0.0 Baso % (Auto) 0.2 Lymph # (Auto) 0.9 L [place] # (Auto) 0.9 Eos # (Auto) 0.0 Baso # (Auto) 0.0 Abs Immat Gran (auto) 0.25 H Absolute Neuts (auto) 14.6 H Absolute Nucleated RBC 0.000 Nucleated RBC % (auto) 0.0 Anion Gap 22 H Estim Creat Clear Calc 47.6 Estimated GFR > 60 Random Glucose 156 H Lactic Acid 3.4 H* Lactic Acid F/U @ 2Hr 2.5 H* Calcium 10.1 D Magnesium 2.3 Total Bilirubin 1.3 H Direct Bilirubin 0.6 H AST 91 H ALT 67 H Alkaline Phosphatase 143 H Total Protein 8.0 Albumin 3.5 TSH 1.93 Urine Color Dark Yellow Urine Appearance Cloudy Urine pH 5.5 Ur Specific [place] 1.025 Urine Protein 30 (1+) H Urine Glucose (UA) Negative Urine Ketones 15 Urine Blood Moderate (2+) H Urine Nitrite Positive H Ur Leukocyte Esterase Moderate (2+) H Urine RBC 6-10 H Urine WBC 21-50 Urine WBC Clumps Present Ur Squamous Epith Cells 0-2 Urine Bacteria 2+ Hyaline Casts 6-10 Urine Yeast Present Influenza Type A (PCR) NEGATIVE Influenza Type B (PCR) NEGATIVE RSV RNA Qual (PCR) NEGATIVE SARS-CoV-2 RNA (RT-PCR) NEGATIVE Assessment and Plan (1) Sepsis: Status: Acute (2) Acute UTI: Status: Acute (3) Acute hypernatremia: Status: Acute Plan This has a 84-year-old male with pertinent history of Alzheimer's dementia with behavioral disturbances, hypertension, dysphagia who was sent to the emergency department for evaluation of lethargy and fever. #. Severe sepsis due to acute UTI: Resuscitated with IV crystalloids. Lactic acid and blood culture obtained. Initiating IV ceftriaxone. Follow urine culture #. Acute lactic acidosis due to sepsis #. Elevated transaminases in the setting of sepsis #. Hypernatremia, hypovolemic: Due to intravascular volume depletion. Initiating hypotonic fluids #. Alzheimer's dementia with behavioral disturbance: At risk for delirium. Monitor Med rec pending DVT prophylaxis: Lovenox Full code Admit as inpatient and will require two night minimum hospital stay for IV antibiotics (as above), which is not possible in a lesser acute setting. Quality Stroke Does the patient have a stroke diagnosis?: No VTE Prior VTE?: No VTE Risk Level:: Medical - moderate - high VTE Device Contraindication: Treatment Not Indicated VTE Drug Contraindication: N/A - Med Ordered
--- NOTE | 2024-09-04 23:58 | MHC.EDTECH ---
This pct assumed care of Patient at 2300 ,vitals taken ,Patient had a medium bowel movement ,care given ,Patient was reposition unto his left side ,Patient belongings list done ,all safety measure in Place .
[2024-09-05] VITALS: BP 137/69; PULSE 100; RESP 18; TEMP 36; O2SAT 93
[2024-09-05 00:37] LABS: Anion Gap 20 (12-20); Blood Urea Nitrogen 25 mg/dL (9-16); Calcium 9.1 mg/dL (8.4-10.2); Carbon Dioxide 19 mmol/L (22-29); Chloride 122 mmol/L (96-108); Creatinine Clr Calc Pharmacy 63.3; Estimated Glomerular Filt Rate > 60; Glucose Random 129 mg/dL (60-115); Potassium 3.6 mmol/L (3.3-5.1); Sodium 157 mmol/L (135-145)
[2024-09-05 00:41] VITALS: BMI 18.8
[2024-09-05 00:49] LABS: ~Lactic Acid-LAB USE ONLY 3.7 mmol/L (0.5-2.0)
[2024-09-05] MEDS: 0.9 % Sodium Chloride Flush 3 ML SYRINGE IVFLUSH (00:54)
[2024-09-05] MEDS: Dextrose 5 % 1,000 ML 100 ML IVCONT ×3 (01:55→22:03)
--- NOTE | 2024-09-05 02:29 | HO.SKINPHOTO ---
Location: buttocks Category: PI Stage: Length: Width: Depth: cm Location: Category: Stage: Length: Width: Depth: cm Location: Category: Stage: Length: Width: Depth: cm Location: Category: Stage: Length: Width: Depth: cm Location: Category: Stage: Length: Width: Depth: cm Location: Category: Stage: Length: Width: Depth: cm
--- NOTE | 2024-09-05 02:30 | HO.SKINPHOTO ---
Location: R ankle Category: PI Stage: Length: Width: Depth: cm Location: Category: Stage: Length: Width: Depth: cm Location: Category: Stage: Length: Width: Depth: cm Location: Category: Stage: Length: Width: Depth: cm Location: Category: Stage: Length: Width: Depth: cm Location: Category: Stage: Length: Width: Depth: cm
--- NOTE | 2024-09-05 02:31 | HO.SKINPHOTO ---
Location: bottom of right foot Category: wound Stage: Length: Width: Depth: cm Location: Category: Stage: Length: Width: Depth: cm Location: Category: Stage: Length: Width: Depth: cm Location: Category: Stage: Length: Width: Depth: cm Location: Category: Stage: Length: Width: Depth: cm Location: Category: Stage: Length: Width: Depth: cm
[2024-09-05 07:33] VITALS: BP 106/48; PULSE 97; RESP 16; TEMP 36.8; O2SAT 93
--- NOTE | 2024-09-05 08:03 | PHA.MEDREC ---
Pharmacy Consult ? Medication Reconciliation Pharmacy has completed the medication reconciliation. Utilized list from [facility]. [phone].
[2024-09-05] MEDS: Enoxaparin Sodium 40 MG/0.4 ML SYRINGE SUBCUT (09:19)
[2024-09-05 09:56] LABS: MANUAL DIFF FLAG NO
[2024-09-05 09:59] LABS: Basophils Percent Auto 0.2 % (0-2); Hemoglobin 12.6 g/dl (14.0-18.0); Imm Gran Pct Auto 1.2 % (0.0-0.4); Lymphocytes Percent Auto 5.8 % (20-40); Mean Corpuscular HGB Conc 31.5 g/dl (31.0-36.0); Mean Corpuscular Hemoglobin 31.2 pg (27.0-33.0); Mean Platelet Volume 11.1 fL (9.4-12.4); Monocytes Absolute Auto 1.1 X10*3/uL (0.1-1.2); Monocytes Percent Auto 6.4 % (2-11); Neutrophils Absolute Auto 14.1 x10*3/uL (2.0-8.3); Neutrophils Percent Auto 86.4 % (45-73); Platelet Count 187 X10*3/uL (160-400); Red Blood Count 4.04 X10*6/uL (4.60-5.80); Red Cell Distribution Width 13.9 % (11.0-16.0); White Blood Count 16.3 X10*3/uL (4.8-10.8)
[2024-09-05 10:10] LABS: C Reactive Protein 22.28 mg/dL (< or = 0.50); Sodium 153 mmol/L (135-145)
[2024-09-05 10:49] LABS: Anion Gap 16 (12-20); Blood Urea Nitrogen 19 mg/dL (9-16); Calcium 8.7 mg/dL (8.4-10.2); Carbon Dioxide 17 mmol/L (22-29); Chloride 123 mmol/L (96-108); Estimated Glomerular Filt Rate > 60; Glucose Random 140 mg/dL (60-115); Potassium 3.2 mmol/L (3.3-5.1)
--- NOTE | 2024-09-05 11:22 | HO.PM.IMPN ---
Subjective Subjective Date of Service: 09/05/24 Interval History: somnolent but arousable, minimally verbal Tmax 102.6 @ 1720 no apparent respiratory distress, abd soft Review of Systems Review of Systems: Yes Unobtainable due to mental status Physical Exam Vital Signs: Vital Signs: Last Vital Signs Temp 98.2 F 09/05/24 07:33 Pulse 97 09/05/24 07:33 Resp 16 09/05/24 07:33 BP 106/48 L 09/05/24 07:33 Pulse Ox 93 09/05/24 07:33 O2 Del Method Room Air 09/05/24 07:33 BMI result Body Mass Index 18.8 Gen: somnolent HEENT: sclera anicteric, moist mucus membranes Neck: supple Lungs: clear to auscultation bilaterally Heart: regular rate and rhythm, no murmurs Abd: soft, non-tender, non-distended Ext: no edema Skin: warm/well-perfused Neuro: somnolent but arousable, moving all extremities Psych: impaired insight Objective Data Active Medications Acetaminophen (Acetaminophen 325 Mg Tablet) 650 mg PO Q6H PRN PRN Reason: Pain, Mild 1-3,fever,headache Bisacodyl (Bisacodyl 10 Mg Supp.Rect) 10 mg [place] DAILY PRN PRN Reason: constipation, is no bm for 8 hrs after M.O.M. Calcium Carbonate (Calcium Carbonate 750 Mg Tab.Chew) 750 mg PO Q4H PRN PRN Reason: Heartburn Ceftriaxone Sodium (Ceftriaxone Sodium 1 Gm Vial) 1 gm IVPUSH Q24H [facility] Diazepam (Diazepam 5 Mg Tablet) 2.5 mg PO BID [facility] Enoxaparin Sodium (Enoxaparin Sodium 40 Mg/0.4 Ml Syringe) 40 mg SUBCUT Q24H [facility] Last Admin: 09/05/24 09:19 Dose: 40 mg Documented By: DOBROB Dextrose (D5w) 1,000 mls @ 100 mls/hr IVCONT .Q10H [facility] Last Admin: 09/05/24 01:55 Dose: 100 mls/hr Documented By: LYSZ Magnesium Hydroxide (Milk Of Magnesia 30 Ml Oral.Susp) 30 ml PO DAILY PRN PRN Reason: Constipation Melatonin (Melatonin 3 Mg Tablet) 6 mg PO BEDTIME PRN PRN Reason: Insomnia Mirtazapine (Mirtazapine 15 Mg Tablet) 15 mg PO BEDTIME [facility] Ondansetron HCl (Ondansetron Hcl 4 Mg/2 Ml Vial) 4 mg IVPUSH Q8H PRN PRN Reason: Nausea and Vomiting Polyethylene Glycol (Polyethylene Glycol 3350 17 Gm Powd.Pack) 17 gm PO DAILY [facility] Last Admin: 09/05/24 09:29 Dose: Not Given Documented By: BAHMAN Non-Admin Reason: NPO Sodium Biphosphate/Sodium Phosphate (Sodium Phosphate,[place]-Dibasic 133 Ml Enema) 118 ml [place] DAILY PRN PRN Reason: constipation, is no bm for 8 hrs after suppository Sodium Chloride (0.9 % Sodium Chloride Flush 3 Ml Syringe) 3 ml IVFLUSH QSHIFT [facility] Last Admin: 09/05/24 07:55 Dose: Not Given Documented By: BAHMAN Non-Admin Reason: IV Running Labs 09/05/24 09:51 09/05/24 09:51 Labs: Laboratory Results - last 24 hr 09/04/24 09/04/24 09/05/24 17:18 20:34 00:15 MCV 95.2 MCH 31.0 MCHC 32.6 RDW 13.7 Plt Count 322 D MPV 10.9 Immature Gran % (Auto) 1.5 H Neut % (Auto) 87.5 H Lymph % (Auto) 5.3 L [place] % (Auto) 5.5 Eos % (Auto) 0.0 Baso % (Auto) 0.2 Lymph # (Auto) 0.9 L [place] # (Auto) 0.9 Eos # (Auto) 0.0 Baso # (Auto) 0.0 Abs Immat Gran (auto) 0.25 H Absolute Neuts (auto) 14.6 H Absolute Nucleated RBC 0.000 Nucleated RBC % (auto) 0.0 Anion Gap 22 H 20 Estim Creat Clear Calc 47.6 63.3 Estimated GFR > 60 > 60 Random Glucose 156 H 129 H Lactic Acid 3.4 H* Lactic Acid F/U @ 2Hr 2.5 H* Lactic Acid F/U @ 4Hr 3.7 H* Calcium 10.1 D 9.1 D Magnesium 2.3 Total Bilirubin 1.3 H Direct Bilirubin 0.6 H AST 91 H ALT 67 H Alkaline Phosphatase 143 H C-Reactive Protein Total Protein 8.0 Albumin 3.5 TSH 1.93 Urine Color Dark Yellow Urine Appearance Cloudy Urine pH 5.5 Ur Specific [place] 1.025 Urine Protein 30 (1+) H Urine Glucose (UA) Negative Urine Ketones 15 Urine Blood Moderate (2+) H Urine Nitrite Positive H Ur Leukocyte Esterase Moderate (2+) H Urine RBC 6-10 H Urine WBC 21-50 Urine WBC Clumps Present Ur Squamous Epith Cells 0-2 Urine Bacteria 2+ Hyaline Casts 6-10 Urine Yeast Present Influenza Type A (PCR) NEGATIVE Influenza Type B (PCR) NEGATIVE RSV RNA Qual (PCR) NEGATIVE SARS-CoV-2 RNA (RT-PCR) NEGATIVE 09/05/24 09/05/24 09/05/24 09:51 09:51 09:51 MCV 99.0 H MCH 31.2 MCHC 31.5 RDW 13.9 Plt Count 187 D MPV 11.1 Immature Gran % (Auto) 1.2 H Neut % (Auto) 86.4 H Lymph % (Auto) 5.8 L [place] % (Auto) 6.4 Eos % (Auto) 0.0 Baso % (Auto) 0.2 Lymph # (Auto) 1.0 L [place] # (Auto) 1.1 Eos # (Auto) 0.0 Baso # (Auto) 0.0 Abs Immat Gran (auto) 0.20 H Absolute Neuts (auto) 14.1 H Absolute Nucleated RBC 0.000 Nucleated RBC % (auto) 0.0 Anion Gap Cancelled 16 Estim Creat Clear Calc Cancelled 75.0 Estimated GFR Cancelled Random Glucose Lactic Acid Lactic Acid F/U @ 2Hr Lactic Acid F/U @ 4Hr Calcium Magnesium Total Bilirubin Direct Bilirubin AST ALT Alkaline Phosphatase C-Reactive Protein Total Protein Albumin TSH Urine Color Urine Appearance Urine pH Ur Specific [place] Urine Protein Urine Glucose (UA) Urine Ketones Urine Blood Urine Nitrite Ur Leukocyte Esterase Urine RBC Urine WBC Urine WBC Clumps Ur Squamous Epith Cells Urine Bacteria Hyaline Casts Urine Yeast Influenza Type A (PCR) Influenza Type B (PCR) RSV RNA Qual (PCR) SARS-CoV-2 RNA (RT-PCR) 09/05/24 09/05/24 09/05/24 09:51 09:51 09:51 MCV MCH MCHC RDW Plt Count MPV Immature Gran % (Auto) Neut % (Auto) Lymph % (Auto) [place] % (Auto) Eos % (Auto) Baso % (Auto) Lymph # (Auto) [place] # (Auto) Eos # (Auto) Baso # (Auto) Abs Immat Gran (auto) Absolute Neuts (auto) Absolute Nucleated RBC Nucleated RBC % (auto) Anion Gap Estim Creat Clear Calc Estimated GFR > 60 Random Glucose Cancelled 140 H Lactic Acid Lactic Acid F/U @ 2Hr Lactic Acid F/U @ 4Hr Calcium Cancelled 8.7 Magnesium Total Bilirubin Direct Bilirubin AST ALT Alkaline Phosphatase C-Reactive Protein 22.28 H Total Protein Albumin TSH Urine Color Urine Appearance Urine pH Ur Specific [place] Urine Protein Urine Glucose (UA) Urine Ketones Urine Blood Urine Nitrite Ur Leukocyte Esterase Urine RBC Urine WBC Urine WBC Clumps Ur Squamous Epith Cells Urine Bacteria Hyaline Casts Urine Yeast Influenza Type A (PCR) Influenza Type B (PCR) RSV RNA Qual (PCR) SARS-CoV-2 RNA (RT-PCR) Assessment and Plan (1) Acute hypernatremia: Status: Acute (2) Acute UTI: Status: Acute Plan d2 for 84 [facility] M L[facility] with Alzheimer dementia, HTN, dysphagia, and recent admission for aspiration pneumonia treated with piperacillin-tazobactam and amoxicillin-clavulanate, sent in with lethargy and fever and found to be septic due to UTI severe sepsis due to UTI - UCx growing GNR with speciation pending, follow BCx, ceftriaxone 09/04- transaminitis - likely due to sepsis; recheck LFTs in AM hypovolemic hyperNa - repleting free water via IV; check Na q6h today Alzheimer's dementia dysphagia - COURT ABSTRACTOR consultation - continue mirtazapine + diazepam when taking POs HTN - hold amlodipine due to severe sepsis VTE ppx - enoxaparin dispo - eventual return to LTC In my clinical judgment, the patient requires continued inpatient hospitalization for the following reasons: IV ABX, hyperNa Total time managing care of this patient today: 40 minutes. Quality Stroke Does the patient have a stroke diagnosis?: No VTE Prior VTE?: No VTE Risk Level:: Medical - moderate - high VTE Device Contraindication: Treatment Not Indicated VTE Drug Contraindication: N/A - Med Ordered
--- NOTE | 2024-09-05 12:37 | MHC.CM.PN ---
PT IS A LTC RESIDENT OF [facility] HCP AND [facility]ARDIAN[facility]IP ON FILE PCP: MANISH GARCIA CM CALLED [facility] AND SPOKE TO KARYNA MAURICIO DELIVERED AND COPY FAXED TO HER AT [phone] DCP: RETURN TO [facility] VIA BLS
--- NOTE | 2024-09-05 12:53 | MHC.SLORD ---
Speech Language Pathology Order Status: Pt not appropriate for evaluation d/t lethargy and difficulty managing secretions. Pt given minimal oral care w/ moisturizer. Presenting w/ wet vocalizations. MANAGER BUSINESS double end production grinder tomorrow via switchboard between 9-11am. If appropriate tomorrow, MANAGER BUSINESS can re-evaluate. Please call-in if requesting re-eval on Wednesday 09/06.
[2024-09-05] MEDS: Potassium Chloride/H20 10 MEQ/100 ML PIGGYBACK 100 MEQ IV ×2 (15:03→16:04)
[2024-09-05 15:27] LABS: Sodium 152 mmol/L (135-145)
[2024-09-05 15:48] VITALS: BP 141/65; PULSE 102; RESP 16; TEMP 38.7; O2SAT 94
[2024-09-05] MEDS: cefTRIAXone sodium 1 GM VIAL IVPUSH (16:05)
[2024-09-05] MEDS: Acetaminophen 1,000 MG/100 ML PIGGYBACK 400 MG IV (16:23)
[2024-09-05 17:30] VITALS: TEMP 38.1
[2024-09-05 20:02] VITALS: BP 126/61; PULSE 82; RESP 18; TEMP 37.1; O2SAT 93
[2024-09-05 21:30] LABS: Sodium 147 mmol/L (135-145)
[2024-09-06 03:09] VITALS: BP 118/58; PULSE 88; RESP 20; TEMP 36.9; O2SAT 96
[2024-09-06 07:00] VITALS: BP 145/67; PULSE 92; RESP 16; TEMP 36.4; O2SAT 92
[2024-09-06] MEDS: Enoxaparin Sodium 40 MG/0.4 ML SYRINGE SUBCUT (07:53)
--- NOTE | 2024-09-06 07:56 | PC.NURSE ---
Pt remains NPO . Pt not appropriate at this time for a swallow eval . pt unable to follow directions
--- NOTE | 2024-09-06 10:43 | P.PNIM_ITS ---
Subjective Subjective Date of Service: 09/06/24 Interval History: more awake today but very confused and unable to obtain history; fever 101.6 @1548 yesterday Review of Systems Review of Systems: Yes Unobtainable due to mental status Physical Exam 2 Vital Signs: Vital Signs: Last Vital Signs Temp 97.5 F 09/06/24 07:00 Pulse 92 09/06/24 07:00 Resp 16 09/06/24 07:00 BP 145/67 H 09/06/24 07:00 Pulse Ox 92 09/06/24 07:00 O2 Del Method Room Air 09/06/24 07:00 BMI result Body Mass Index 18.8 Gen: awake, inappropriate responses to questions HEENT: sclera anicteric, dry mucus membranes Neck: supple Lungs: clear to auscultation bilaterally Heart: regular rate and rhythm, no murmurs Abd: soft, non-tender, non-distended Ext: no edema Skin: warm/well-perfused Neuro: awake, disoriented, moving all extremities Psych: impaired insight Objective Data Active Medications Acetaminophen (Acetaminophen 325 Mg Tablet) 650 mg PO Q6H PRN PRN Reason: Pain, Mild 1-3,fever,headache Bisacodyl (Bisacodyl 10 Mg Supp.Rect) 10 mg [place] DAILY PRN PRN Reason: constipation, is no bm for 8 hrs after M.O.M. Calcium Carbonate (Calcium Carbonate 750 Mg Tab.Chew) 750 mg PO Q4H PRN PRN Reason: Heartburn Ceftriaxone Sodium (Ceftriaxone Sodium 1 Gm Vial) 1 gm IVPUSH Q24H [facility] Last Admin: 09/05/24 16:05 Dose: 1 gm Documented By: BAHMAN Diazepam (Diazepam 5 Mg Tablet) 2.5 mg PO BID [facility] Last Admin: 09/06/24 07:41 Dose: Not Given Documented By: CELINE Non-Admin Reason: NPO Enoxaparin Sodium (Enoxaparin Sodium 40 Mg/0.4 Ml Syringe) 40 mg SUBCUT Q24H [facility] Last Admin: 09/06/24 07:53 Dose: 40 mg Documented By: CELINE Magnesium Hydroxide (Milk Of Magnesia 30 Ml Oral.Susp) 30 ml PO DAILY PRN PRN Reason: Constipation Melatonin (Melatonin 3 Mg Tablet) 6 mg PO BEDTIME PRN PRN Reason: Insomnia Mirtazapine (Mirtazapine 15 Mg Tablet) 15 mg PO BEDTIME [facility] Last Admin: 09/05/24 21:58 Dose: Not Given Documented By: ANJELICA Non-Admin Reason: NPO Ondansetron HCl (Ondansetron Hcl 4 Mg/2 Ml Vial) 4 mg IVPUSH Q8H PRN PRN Reason: Nausea and Vomiting Polyethylene Glycol (Polyethylene Glycol 3350 17 Gm Powd.Pack) 17 gm PO DAILY [facility] Last Admin: 09/06/24 07:41 Dose: Not Given Documented By: CELINE Non-Admin Reason: NPO Sodium Biphosphate/Sodium Phosphate (Sodium Phosphate,[place]-Dibasic 133 Ml Enema) 118 ml [place] DAILY PRN PRN Reason: constipation, is no bm for 8 hrs after suppository Sodium Chloride (0.9 % Sodium Chloride Flush 3 Ml Syringe) 3 ml IVFLUSH QSHIFT [facility] Last Admin: 09/06/24 06:58 Dose: Not Given Documented By: CELINE Non-Admin Reason: IV Running Labs 09/05/24 09:51 09/05/24 21:03 Labs: Laboratory Results - last 24 hr 09/05/24 09:51 Anion Gap 16 Estim Creat Clear Calc 75.0 Estimated GFR > 60 Random Glucose 140 H Calcium 8.7 Microbiology Microbiology Results: Microbiology 09/04/24 Unknown Urine Culture - Final Urine clean catch - Clean Catch Midstream Klebsiella oxytoca 09/04/24 17:31 Blood Culture - Preliminary Blood - Arterial No growth after 24 hours. 09/04/24 17:18 Blood Culture - Preliminary Blood - Arterial No growth after 24 hours. Assessment and Plan (1) Acute hypernatremia: Status: Acute (2) Acute UTI: Status: Acute Plan d3 for 84 yo M LTC resident of [facility] with Alzheimer dementia, HTN, dysphagia, and recent admission for aspiration pneumonia treated with piperacillin-tazobactam and amoxicillin-clavulanate, sent in with lethargy and fever and found to be septic due to UTI severe sepsis due to UTI - UCx growing Klebsiella oxytoca, follow BCx, ceftriaxone 09/04- to which the K. oxytoca is sensitive, change to cefdinir upon discharge if taking POs transaminitis - likely due to sepsis; recheck LFTs pending hypovolemic hyperNa - repleted free water via IV; recheck BMP pending Alzheimer's dementia dysphagia - FLORAL DEPARTMENT SPECIALIST consultation: NPO per recommendation yesterday, re-assess today - continue mirtazapine + diazepam when taking POs HTN - hold amlodipine due to severe sepsis VTE ppx - enoxaparin dispo - eventual return to LTC In my clinical judgment, the patient requires continued inpatient hospitalization for the following reasons: IV ABX, NPO, hyperNa Total time managing care of this patient today: 40 minutes. Quality Stroke Does the patient have a stroke diagnosis?: No VTE Prior VTE?: No VTE Risk Level:: Medical - moderate - high VTE Device Contraindication: Treatment Not Indicated VTE Drug Contraindication: N/A - Med Ordered
--- NOTE | 2024-09-06 11:03 | PC.NURSE ---
Lab unable to draw pt . They attempted 4 times to get specimen. Md Baker notified
--- NOTE | 2024-09-06 14:14 | MHC.SLORD ---
Speech Language Pathology Order Status: Pt not appropriate for clinical swallow evaluation on this date; to be seen tomorrow 09/07 by FOOD PORTER
[2024-09-06] MEDS: 0.9 % Sodium Chloride Flush 3 ML SYRINGE IVFLUSH (15:15)
[2024-09-06] MEDS: cefTRIAXone sodium 1 GM VIAL IVPUSH (15:15)
[2024-09-06 15:19] VITALS: BP 135/71; PULSE 105; RESP 14; TEMP 36.9; O2SAT 93
[2024-09-06 15:21] LABS: Hematocrit 37.3 % (42.0-52.0); Hemoglobin 12.3 g/dl (14.0-18.0); Mean Corpuscular Hemoglobin 30.8 pg (27.0-33.0); Mean Corpuscular Volume 93.3 fL (80.0-98.0); Mean Platelet Volume 11.8 fL (9.4-12.4); Platelet Count 189 X10*3/uL (160-400); Red Cell Distribution Width 13.5 % (11.0-16.0); White Blood Count 18.3 X10*3/uL (4.8-10.8)
[2024-09-06 15:47] LABS: Alanine Aminotransferase 42 U/L (0-40); Albumin Level 2.5 g/dL (3.5-5.0); Anion Gap 13 (12-20); Aspartate Amino Transferase 65 U/L (5-37); Bilirubin Direct 0.4 mg/dL (0.0-0.5); Bilirubin Total 0.8 mg/dL (0.0-1.0); Blood Urea Nitrogen 12 mg/dL (9-16); Calcium 8.8 mg/dL (8.4-10.2); Carbon Dioxide 22 mmol/L (22-29); Chloride 112 mmol/L (96-108); Creatinine Clr Calc Pharmacy 81.7; Estimated Glomerular Filt Rate > 60; Glucose Random 92 mg/dL (60-115); Potassium 3.2 mmol/L (3.3-5.1); Sodium 144 mmol/L (135-145); Total Protein 5.9 g/dL (6.5-8.0)
[2024-09-06 16:10] LABS: Vitamin B12 534 pg/mL (200-900)
[2024-09-06 17:14] LABS: Alkaline Phosphatase 118 U/L (39-117)
[2024-09-06 23:26] VITALS: BP 128/68; PULSE 98; RESP 18; TEMP 36.6; O2SAT 94
[2024-09-07 08:00] VITALS: BP 118/58; PULSE 100; RESP 18; TEMP 36.7; O2SAT 93
[2024-09-07] MEDS: 0.9 % Sodium Chloride Flush 3 ML SYRINGE IVFLUSH ×2 (08:17→15:48)
[2024-09-07] MEDS: Enoxaparin Sodium 40 MG/0.4 ML SYRINGE SUBCUT (08:17)
--- NOTE | 2024-09-07 10:40 | MHC.SL.SWA ---
Speech Pathologist Impression: Risk of Aspiration Due to: Dysphasia Diet Status: Recommend continue on Chopped/Advanced (NDD3) with thin liquids, pills whole in puree. Patient requires intermittent supervision at meals, set up tray, open all items, orient patient to meal. With this assistance, patient is reliably independent with meal. Liquid Consistency and Strategies for Safe Swallow: Liquid Intake Recommendation: [place] Thick Liquid Intake Strategies: Solid Food Consistency: Dietary Recommendations: Liquid diet Additional Modifications to Solid Foods: Patient presents with high risk of aspiration secondary to difficulty with positioning for feeding and vulnerable respiratory condition. ? patient fed while lying down or in poor position at LTC facility. Patient also with HX FTT, is resistant at times to meals/feeding. Recommend start/upgrade diet to Liquid Diet thickened to nectar consistency, pills crushed in puree. Patient will required very careful positioning for any meal, should be as upright in bed as tolerated (70 degrees or more) with care for lower limb contractures. Patient will need persistent encouragement to eat and direct 1-1 assistance. Oral Medication Intake: Crushed with Puree Please contact the pharmacy regarding appropriate crushable or liquid drug formulations that are available whenever modified delivery is recommended. Compensatory Strategies and Precautions to be Taken for Safe Swallow: Supervision While Eating and Drinking for Safe Swallow: Direct Supervision (1:1) Foods to Avoid: Recommend start on puree, COOK FISHING VESSEL will re-assess and advanced diet as tolerated. Swallowing Recommended Treatments: Recommendation for Speech: Inpatient Speech Therapy Comment: Pt presents with mild oral and mild to moderate pharyngeal dysphagia as evidenced by his ability to retrieve pureed and NTL trials from well of spoon when given 1/2 tsp presentations. Labial rounding, closure and seal WFL. No anterior loss observed, though pt did push one bolus of applesauce out of mouth intentionally. Anterior to posterior transit mildly delayed, trigger of pharyngeal swallow also delayed upon tongue elevation. Pt tolerated small amounts of trials with NTL by spoon sips and with consecutive straw sips. No overt s/s of aspiration observed. Pt had one delayed cough after trials of puree. Slow pacing implemented throughout bedside swallow evaluation. COOK FISHING VESSEL demonstrated for AOC AADC OPERATIONS STAFF OFFICER technique recc for feeding pt. Anticipate pt will not nutritional needs by mouth, RD consult indicated. Recc liquid diet thickened to nectar consistency, 1:1 feed, slow pacing, meds crushed in puree. , RN and AOC AADC OPERATIONS STAFF OFFICER consulted. COOK FISHING VESSEL to follow. Frequency/Duration: Daily M-F Date Range for Service Req: Timeline to reassess: Blasting Miner Clinican/Clinical Fellow: No Supervisory Statement: I have reviewed and agree with the student/clinical fellow's documentation: N/A Speech Language Pathologist: Penny Del Cid M.S., [facility]-COOK FISHING VESSEL
[2024-09-07 11:25] VITALS: BMI 18.8
--- NOTE | 2024-09-07 11:41 | MHC.CLN ---
Addendum entered by Najma Dominguez, PHILIPPE 09/07/24 16:20: DIET UPGRADED TO FULL LIQUIDS NECTAR THICK. ADDING MAGIC CUP TID TO PROMOTE WOUND HEALING AND INCREASE NUTRITIONAL INTAKE. SUPPLEMENT PROVIDES 870 KCALS, 27 G PROTEIN. Original Note: NUTRITION CURRENT DIET ORDER IS NPO. SEEN BY ICE CRUSHER THIS MORNING WITH REC FOR LIQUID DIET, NECTAR THICK. PER ICE CRUSHER, 1:1 FEED AT VERY SLOW PACE. CAN BE RESISTANT TO FEEDING/MEALS. INCREASED NUTRITION NEEDS DUE TO MULTIPLE DTIs. SIGNIFICANT WEIGHT LOSS X 30 DAYS AND X 6 MONTHS. 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 RECOMMEND ADD NUTRITIONAL SUPPLEMENTS WHEN ABLE TO ADVANCE DIET. FOLLOW FOR DIET ADVANCEMENT, PO INTAKE, SKIN INTEGRITY AND WEIGHT. SEE CLINICAL NUTRITION ASSESSMENT 09/07/24.
[2024-09-07 12:58] LABS: Hematocrit 35.3 % (42.0-52.0); Hemoglobin 11.9 g/dl (14.0-18.0); Mean Corpuscular HGB Conc 33.7 g/dl (31.0-36.0); Mean Corpuscular Hemoglobin 31.2 pg (27.0-33.0); Mean Corpuscular Volume 92.7 fL (80.0-98.0); Mean Platelet Volume 11.5 fL (9.4-12.4); Platelet Count 232 X10*3/uL (160-400); Red Blood Count 3.81 X10*6/uL (4.60-5.80); Red Cell Distribution Width 13.7 % (11.0-16.0); White Blood Count 17.5 X10*3/uL (4.8-10.8)
[2024-09-07 13:18] LABS: Anion Gap 13 (12-20); Blood Urea Nitrogen 14 mg/dL (9-16); Calcium 8.9 mg/dL (8.4-10.2); Carbon Dioxide 22 mmol/L (22-29); Chloride 114 mmol/L (96-108); Creatinine Clr Calc Pharmacy 80.2; Estimated Glomerular Filt Rate > 60; Glucose Random 108 mg/dL (60-115); Potassium 2.9 mmol/L (3.3-5.1); Sodium 146 mmol/L (135-145)
[2024-09-07 15:06] VITALS: BP 145/63; PULSE 104; RESP 16; TEMP 37.3; O2SAT 91
--- NOTE | 2024-09-07 15:40 | P.PNIM_ITS ---
Subjective Subjective Date of Service: 09/07/24 Interval History: No acute issues overnight. Remains confused Review of Systems Unable to obtain Physical Exam 2 Vital Signs: Vital Signs: Last Vital Signs Temp 99.1 F 09/07/24 15:06 Pulse 104 H 09/07/24 15:06 Resp 16 09/07/24 15:06 BP 145/63 H 09/07/24 15:06 Pulse Ox 91 L 09/07/24 15:06 O2 Del Method Room Air 09/07/24 15:06 BMI result Body Mass Index 18.8 Const: Other: Awake alert no acute distress Resp: Other: Clear to auscultation bilaterally no rales rhonchi or wheezes Cardio: Other: No S4; positive S1-S2; no S3 murmurs rubs or gallops GI: Other: Soft nontender nondistended normoactive bowel sounds Extrem: Other: No edema bilaterally Objective Data Active Medications Acetaminophen (Acetaminophen 325 Mg Tablet) 650 mg PO Q6H PRN PRN Reason: Pain, Mild 1-3,fever,headache Bisacodyl (Bisacodyl 10 Mg Supp.Rect) 10 mg [place] DAILY PRN PRN Reason: constipation, is no bm for 8 hrs after M.O.M. Calcium Carbonate (Calcium Carbonate 750 Mg Tab.Chew) 750 mg PO Q4H PRN PRN Reason: Heartburn Ceftriaxone Sodium (Ceftriaxone Sodium 1 Gm Vial) 1 gm IVPUSH Q24H [facility] Last Admin: 09/06/24 15:15 Dose: 1 gm Documented By: CELINE Diazepam (Diazepam 5 Mg Tablet) 2.5 mg PO BID [facility] Last Admin: 09/07/24 07:10 Dose: Not Given Documented By: TYRELL Non-Admin Reason: NPO Enoxaparin Sodium (Enoxaparin Sodium 40 Mg/0.4 Ml Syringe) 40 mg SUBCUT Q24H [facility] Last Admin: 09/07/24 08:17 Dose: 40 mg Documented By: TYRELL Magnesium Hydroxide (Milk Of Magnesia 30 Ml Oral.Susp) 30 ml PO DAILY PRN PRN Reason: Constipation Melatonin (Melatonin 3 Mg Tablet) 6 mg PO BEDTIME PRN PRN Reason: Insomnia Mirtazapine (Mirtazapine 15 Mg Tablet) 15 mg PO BEDTIME [facility] Last Admin: 09/06/24 20:01 Dose: Not Given Documented By: PATRICK Non-Admin Reason: NPO Ondansetron HCl (Ondansetron Hcl 4 Mg/2 Ml Vial) 4 mg IVPUSH Q8H PRN PRN Reason: Nausea and Vomiting Polyethylene Glycol (Polyethylene Glycol 3350 17 Gm Powd.Pack) 17 gm PO DAILY [facility] Last Admin: 09/07/24 07:11 Dose: Not Given Documented By: TYRELL Non-Admin Reason: NPO Sodium Biphosphate/Sodium Phosphate (Sodium Phosphate,[place]-Dibasic 133 Ml Enema) 118 ml [place] DAILY PRN PRN Reason: constipation, is no bm for 8 hrs after suppository Sodium Chloride (0.9 % Sodium Chloride Flush 3 Ml Syringe) 3 ml IVFLUSH QSHIFT [facility] Last Admin: 09/07/24 08:17 Dose: 3 ml Documented By: TYRELL Labs 09/07/24 12:44 09/07/24 12:45 Labs: Laboratory Results - last 24 hr 09/06/24 09/07/24 09/07/24 15:11 12:44 12:45 MCV 92.7 MCH 31.2 MCHC 33.7 RDW 13.7 Plt Count 232 MPV 11.5 Absolute Nucleated RBC 0.000 Nucleated RBC % (auto) 0.0 Anion Gap 13 13 Estim Creat Clear Calc 81.7 80.2 Estimated GFR > 60 > 60 Random Glucose 92 108 Calcium 8.8 8.9 Total Bilirubin 0.8 Direct Bilirubin 0.4 AST 65 H ALT 42 H Alkaline Phosphatase 118 H Total Protein 5.9 L Albumin 2.5 L Vitamin B12 534 Microbiology Microbiology Results: Microbiology 09/04/24 17:31 Blood Culture - Preliminary Blood - Arterial No growth after 48 hours. 09/04/24 17:18 Blood Culture - Preliminary Blood - Arterial No growth after 48 hours. Assessment and Plan (1) Acute UTI: Status: Acute (2) Sepsis: Status: Acute (3) Acute hypernatremia: Status: Acute (4) Dementia with behavioral disturbance: Status: Acute Plan 84 yo M LTC resident of [facility] with Alzheimer dementia, HTN, dysphagia, and recent admission for aspiration pneumonia treated with piperacillin-tazobactam and amoxicillin-clavulanate, sent in with lethargy and fever and found to be septic due to UTI 1.Severe sepsis due to UTI (sepsis resolved) - UCx growing Klebsiella oxytoca(sensitive to ceftriaxone) -ceftriaxone (4) -p.o. Ceftin when appropriate 2.Transaminitis -resolving -follow LFTs in a.m. 3. Hypernatremia -approximately 1 L free water deficit -replete with D5W -follow renal/divalents 4.Alzheimer's dementia - MACHINE PACKAGING TECHNICIAN consultation.. [place] thick liquids - continue mirtazapine + diazepam when taking POs 5.HTN - hold amlodipine -add back when appropriate Enoxaparin Full Code dispo - eventual return to LTC In my clinical judgment, the patient requires continued inpatient hospitalization for the following reasons: IV ABX, free water replacement for hyperNa Quality Stroke Does the patient have a stroke diagnosis?: No VTE Prior VTE?: No VTE Risk Level:: Medical - moderate - high VTE Device Contraindication: Treatment Not Indicated VTE Drug Contraindication: N/A - Med Ordered
[2024-09-07] MEDS: cefTRIAXone sodium 1 GM VIAL IVPUSH (15:48)
[2024-09-07] MEDS: Potassium Chloride/H20 10 MEQ/100 ML PIGGYBACK 100 MEQ IV ×4 (16:04→19:18)
[2024-09-07] MEDS: diazePAM 5 MG TABLET 2.5 MG PO (19:53)
[2024-09-07] MEDS: Mirtazapine 15 MG TABLET PO (19:53)
[2024-09-07 23:43] VITALS: BP 113/58; PULSE 100; RESP 16; TEMP 36.1; O2SAT 94
[2024-09-08 07:38] VITALS: BP 123/58; PULSE 95; RESP 16; TEMP 36.4; O2SAT 96
[2024-09-08] MEDS: diazePAM 5 MG TABLET 2.5 MG PO (09:02)
[2024-09-08] MEDS: polyethylene glycoL 3350 17 GM POWD.PACK PO (09:04)
[2024-09-08] MEDS: Enoxaparin Sodium 40 MG/0.4 ML SYRINGE SUBCUT (09:05)
[2024-09-08] MEDS: 0.9 % Sodium Chloride Flush 3 ML SYRINGE IVFLUSH ×2 (09:11→15:31)
[2024-09-08 10:32] LABS: MANUAL DIFF FLAG NO
[2024-09-08 10:37] LABS: Basophils Percent Auto 0.2 % (0-2); Eosinophils Percent Auto 0.2 % (0-4); Hematocrit 37.7 % (42.0-52.0); Hemoglobin 12.4 g/dl (14.0-18.0); Imm Gran Abs Auto 0.48 X10*3/uL (0.00-0.03); Imm Gran Pct Auto 2.9 % (0.0-0.4); Lymphocytes Absolute Auto 1.3 X10*3/uL (1.2-4.9); Lymphocytes Percent Auto 7.6 % (20-40); Mean Corpuscular HGB Conc 32.9 g/dl (31.0-36.0); Mean Corpuscular Hemoglobin 31.1 pg (27.0-33.0); Mean Corpuscular Volume 94.5 fL (80.0-98.0); Mean Platelet Volume 11.4 fL (9.4-12.4); Monocytes Absolute Auto 0.8 X10*3/uL (0.1-1.2); Monocytes Percent Auto 4.8 % (2-11); Neutrophils Percent Auto 84.3 % (45-73); Platelet Count 217 X10*3/uL (160-400); Red Blood Count 3.99 X10*6/uL (4.60-5.80); White Blood Count 16.6 X10*3/uL (4.8-10.8)
[2024-09-08 10:48] LABS: Alanine Aminotransferase 84 U/L (0-40); Albumin Level 2.5 g/dL (3.5-5.0); Alkaline Phosphatase 140 U/L (39-117); Anion Gap 12 (12-20); Aspartate Amino Transferase 155 U/L (5-37); Bilirubin Total 0.5 mg/dL (0.0-1.0); Blood Urea Nitrogen 16 mg/dL (9-16); Carbon Dioxide 24 mmol/L (22-29); Chloride 115 mmol/L (96-108); Creatinine Clr Calc Pharmacy 78.8; Estimated Glomerular Filt Rate > 60; Glucose Fasting 121 mg/dL (60-99); Potassium 3.4 mmol/L (3.3-5.1); Sodium 148 mmol/L (135-145); Total Protein 6.1 g/dL (6.5-8.0)
--- NOTE | 2024-09-08 13:17 | P.DS_ITS ---
DS: Providers Provider Date of Service: 09/08/24 Date of admission: 09/04/24 22:59 Date of discharge: 09/08/24 Primary care physician: None Physician Consults: 09/05/24 02:13 Consult to Wound Care Routine Reason for consultation: PI left buttock, right ankle. Skin tears to both arms. Wound bottom R foot. DS: Diagnosis Discharge Diagnosis (1) Acute UTI: Status: Acute (2) Sepsis: Status: Acute (3) Acute hypernatremia: Status: Acute (4) Dementia with behavioral disturbance: Status: Acute DS: Summary Hospital Course Hospital Course: 84-year-old male with pertinent history of Alzheimer's dementia with behavioral disturbances, hypertension, dysphagia who was sent to the emergency department for evaluation of lethargy and fever. Unable to obtain history from the patient. History obtained from ER provider and chart review. Patient is only awake at the time of my evaluation. Not answering questions and not following commands. Patient is mostly nonverbal at baseline. He was sent from SNF as patient has been more lethargic than usual and also was found to be febrile. Blood work was done at outside facility and WBC was found to be elevated. Unable to obtain review of systems. In the emergency department, patient was found to be septic and urine concerning for UTI. Hospital course Admitted to general medical floor and started on ceftriaxone. Urine culture ultimately grew Klebsiella sensitive to ceftriaxone. Patient's white count has continued to decrease in he has remained afebrile. Blood cultures have remained negative for 3.5 days. At this point in time he is medically acceptable to returned to long-term care. Message left with Sita Malvern, guardian. Consideration should be made regarding patient's code status as it is likely he will continued to decline. He will return to long-term care resume all treatments and therapies and complete a course of Ceftin as ordered Time Attestation Discharge Coordination Time (in mins): 35 Quality: Safe Use of Opioids Does Pt have an Active Cancer Diagnosis on the Problem List?: No Quality: Stroke Does the patient have a stroke diagnosis?: No Physical Exam Vital Signs: Vital Signs: Last Vital Signs Temp 97.6 F 09/08/24 07:38 Pulse 95 09/08/24 07:38 Resp 16 09/08/24 07:38 BP 123/58 L 09/08/24 07:38 Pulse Ox 96 09/08/24 07:38 O2 Del Method Room Air 09/08/24 07:38 BMI result Body Mass Index 18.8 Const: Other: Awake alert no acute distress Resp: Other: Clear to auscultation bilaterally no rales rhonchi or wheezes Cardio: Other: No S4; positive S1-S2; no S3 murmurs rubs or gallops GI: Other: Soft nontender nondistended normoactive bowel sounds Extrem: Other: No edema bilaterally DS: Data Data Completed and Pending Completed studies during hospitalization [Text1]: Procedures Drainage of Spinal Canal, Percutaneous Approach, Diagnostic (02/14/24) Fluoroscopy of Spinal Cord (02/14/24) Labs on day of discharge: Laboratory Results - last 24 hr 09/07/24 09/08/24 12:45 10:26 WBC 16.6 H RBC 3.99 L Hgb 12.4 L Hct 37.7 L MCV 94.5 MCH 31.1 MCHC 32.9 RDW 14.0 Plt Count 217 MPV 11.4 Immature Gran % (Auto) 2.9 H Neut % (Auto) 84.3 H Lymph % (Auto) 7.6 L [place] % (Auto) 4.8 Eos % (Auto) 0.2 Baso % (Auto) 0.2 Lymph # (Auto) 1.3 [place] # (Auto) 0.8 Eos # (Auto) 0.0 Baso # (Auto) 0.0 Abs Immat Gran (auto) 0.48 H Absolute Neuts (auto) 14.0 H Absolute Nucleated RBC 0.000 Nucleated RBC % (auto) 0.0 Sodium 146 H 148 H Potassium 2.9 L* 3.4 Chloride 114 H 115 H Carbon Dioxide 22 24 Anion Gap 13 12 BUN 14 16 Creatinine 0.57 0.58 Estim Creat Clear Calc 80.2 78.8 Estimated GFR > 60 > 60 Random Glucose 108 Fasting Glucose 121 H Calcium 8.9 9.0 Total Bilirubin 0.5 AST 155 H ALT 84 H Alkaline Phosphatase 140 H Total Protein 6.1 L Albumin 2.5 L Preliminary micro results at discharge 09/04/24 17:31 Blood Culture - Preliminary Blood - Arterial No growth after 48 hours. 09/04/24 17:18 Blood Culture - Preliminary Blood - Arterial No growth after 48 hours. Discharge Plan Discharge Anticipated Discharge Date/Time: 09/08/24 13:04 Patient Disposition: Xfer [facility] Discharge Diagnosis: Klebsiella UTI Referrals: Physician,None [Primary Care Provider] - 1 Week Discharge Medications: New cefuroxime axetil 500 mg tablet 500 mg PO BID 7 Days Qty: 14 0RF Continued bisacodyl 10 mg Suppository 10 mg LA DAILY PRN (Reason: constipation, is no bm for 8 hrs after M.O.M.) Rx Instructions: If no BM for 8 hours after M.O.M amlodipine 10 mg Tablet 10 mg PO DAILY Fleet Enema 19-7 gram/118 mL Enema 118 ml LA DAILY PRN (Reason: constipation, is no bm for 8 hrs after suppository) diazepam 5 mg Tablet 2.5 mg PO BID polyethylene glycol 3350 17 gram Powder In Packet 17 g PO DAILY Qty: 0 0RF acetaminophen 325 mg Tablet 650 mg PO Q6H PRN (Reason: Headache/Pain (Scale Score 1-3)) magnesium hydroxide [Milk of Magnesia] 400 mg/5 mL Suspension 30 ml PO DAILY PRN (Reason: Constipation, no bm in 3 days) Rx Instructions: (Step 1) If no BM for 3 days mirtazapine [Remeron] 15 mg Tablet 15 mg PO BEDTIME melatonin 3 mg Tablet 6 mg PO BEDTIME Discharge Orders: Discharge Order (Routine); Ordered 09/08/24 Ordered By: Gabriel Lim Diet: Advance to usual diet Activity on Discharge: As tolerated Stand Alone Forms: Patient Portal Discharge page Print Language: Unable To Collect Care Plan Goals: Ceftin 500 mg p.o. b.i.d. has been added for 10 days to complete treatment for Klebsiella UTI. Health Concerns: Resume all meds as taken prior to hospitalization. Plan of Treatment: Patient evaluated by speech and advised chop/advanced (and DD 3) with thin liquids pills whole in puree. This can be re-evaluated at facility as deemed appropriate by receiving physician and staff. Continue all treatments as prior to transfer to hospital Assessment: See discharge summary Patient Instructions: Urinary Tract Infection in Older Adults (DC)
[2024-09-08 13:46] VITALS: BP 138/63; PULSE 93; RESP 16; TEMP 36; O2SAT 93
--- NOTE | 2024-09-08 13:49 | P.CDIM_ITS ---
PROVIDER RESPONSE TEXT: To clarify, the appropriate diagnosis supported by the clinical indicators: Malnourished: mild QUERY TEXT: PHYSICIAN'S DOCUMENTATION REQUEST Date of Query: 09/08/2024 07:48 AM EDT Patient Name: Pernell Yung Admit Date: 09/05/2024 Dear Gabriel Lim DO, A review of the medical record indicates additional documentation may be needed. Please review below and update the documentation accordingly. Clinical Indicators: Height: 5ft 9in Weight: 57.8kg BMI: 18.8 Other Clinical Notes Supporting Significance of the BMI: Clinical nutrition notes: Qualifies as moder ately malnourished in the context of chronic illness. Recommend add nutritional supplements when able to advance diet. If possible, please provide an associated diagnosis related to the abnormal BMI, such as: Malnourished mild, moderate, severe Cachexia Anorexia Other (explain) Clinically unable to determine (explain) Thank you, Reena Garcia, CCS, CDIS Use of terms such as suspected, likely, concern for, or probable (associated with a specific diagnosi s that is being evaluated, monitored, or treated as if it exists) are acceptable and can be coded in the inpatient se tting, when documented at the time of discharge. Please use your independent medical judgment in providing your response. THIS QUERY IS PART OF THE PERMANENT MEDICAL RECORD
--- NOTE | 2024-09-08 13:52 | P.CDIM_ITS ---
PROVIDER RESPONSE TEXT: To clarify, the appropriate diagnosis supported by the clinical indicators: Deep tissue injury bilateral buttocks: suspected QUERY TEXT: PHYSICIAN'S DOCUMENTATION REQUEST Date of Query: 09/08/2024 07:50 AM EDT Patient Name: Pernell Yung Admit Date: 09/05/2024 Dear Gabriel Lim DO, A review of the medical record indicates additional documentation may be needed. Please review below and update the documentation accordingly. Clinical Indicators: Wound care nursing notes 09/06/24 - Deep Tissue Injury bilateral buttocks Dry & intact Foam dressing. Based on the above, could you please provide further information regarding the ulcer/wound/injury: Deep tissue injury bilateral buttocks Possible, probable, suspected etc. Pressure (decubitus) ulcer Please include the stage of the ulcer and specify the location and laterality of the ulcer/wound Other (explain) Clinically unable to determine (explain) Thank you, Reena Garcia, CCS, CDIS Use of terms such as suspected, likely, concern for, or probable (associated with a specific diagnosi s that is being evaluated, monitored, or treated as if it exists) are acceptable and can be coded in the inpatient se tting, when documented at the time of discharge. Please use your independent medical judgment in providing your response. THIS QUERY IS PART OF THE PERMANENT MEDICAL RECORD
--- NOTE | 2024-09-08 13:52 | P.CDIM_ITS ---
PROVIDER RESPONSE TEXT: To clarify, the appropriate diagnosis supported by the clinical indicators: Deep Tissue Injury Right ankle: probable QUERY TEXT: PHYSICIAN'S DOCUMENTATION REQUEST Date of Query: 09/08/2024 07:47 AM EDT Patient Name: Pernell Yung Admit Date: 09/05/2024 Dear Gabriel Lim DO, A review of the medical record indicates additional documentation may be needed. Please review below and update the documentation accordingly. Clinical Indicators: Wound care nursing notes dated 09/06/24 - DTI right ankle Foam dressing. Based on the above, could you please provide further information regarding the ulcer/wound/injury: Deep Tissue Injury Right ankle Possible, probable, suspected etc. Pressure (decubitus) ulcer Please include the stage of the ulcer and specify the location and laterality of the ulcer/wound Other (explain) Clinically unable to determine (explain) Thank you, Reena Garcia, CCS, CDIS Use of terms such as suspected, likely, concern for, or probable (associated with a specific diagnosi s that is being evaluated, monitored, or treated as if it exists) are acceptable and can be coded in the inpatient se tting, when documented at the time of discharge. Please use your independent medical judgment in providing your response. THIS QUERY IS PART OF THE PERMANENT MEDICAL RECORD
--- NOTE | 2024-09-08 14:54 | MHC.CM.PN ---
IMM 09/08/24 Patient is discharged today. He will return to [facility], for LTC. Guardian has been notified. 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 All discharge info has been sent to the SNF.
--- NOTE | 2024-09-08 14:54 | MHC.SLORD ---
Speech Language Pathology Order Status: Pt sound asleep when [employer] attempted to see pt. RN reports pt tolerating current diet (nectar thick liquids) and pills in puree.
[2024-09-08 15:12] VITALS: BP 136/65; PULSE 89; RESP 14; TEMP 36.4; O2SAT 92
[2024-09-08] MEDS: cefTRIAXone sodium 1 GM VIAL IVPUSH (15:31)
== END 2024-09-08 19:40 | DRG 872 ==
LOC: HO.ED 23:00 → HO.EDOVER 23:29 → HO.S3 23:32
PROVIDERS: Family Medicine; Admitting Provider Student in an Organized Health Care Education/Training Program; Emergency Provider Emergency Medicine; Visit Provider Hospitalist
DX: A41.9 Sepsis, unspecified organism (principal); F02.818 Dementia in other diseases classified elsewhere, unspecified severity, with other behavioral disturbance; E87.0 Hyperosmolality and hypernatremia; E44.1 Mild protein-calorie malnutrition; Z68.1 Body mass index [BMI] 19.9 or less, adult; N39.0 Urinary tract infection, site not specified; I10 Essential (primary) hypertension; B96.89 Other specified bacterial agents as the cause of diseases classified elsewhere; R65.20 Severe sepsis without septic shock; G30.9 Alzheimer's disease, unspecified; E86.0 Dehydration; L89.326 Pressure-induced deep tissue damage of left buttock; L89.516 Pressure-induced deep tissue damage of right ankle; L89.316 Pressure-induced deep tissue damage of right buttock; E86.1 Hypovolemia; Z20.822 Contact with and (suspected) exposure to COVID-19; Z79.899 Other long term (current) drug therapy
CPT/HCPCS: 0241U; 36415; 71045; 74176; 80048; 80053; 80076; 81001; 82607; 83605; 83735; 84295; 84443; 85025; 85027; 86140; 87040; 87086; 87088; 87186; 92610; 93005; 99285; J0131; J0696; J1650; J3480

== ENCOUNTER → 2024-09-04 16:58 | Outpatient (BNV) | payer MEDICARE, SELFPAY | PROVIDERS: Emergency Provider Emergency Medicine; Visit Provider Radiology Diagnostic Radiology | DX: J18.8 Other pneumonia, unspecified organism (principal); I25.10 Atherosclerotic heart disease of native coronary artery without angina pectoris; R05.9 Cough, unspecified; D72.829 Elevated white blood cell count, unspecified | CPT/HCPCS: 71045; 74176 ==

== ENCOUNTER → 2024-09-04 16:58 | Outpatient (BNV) | payer MEDICARE, SELFPAY | PROVIDERS: Admitting Provider Student in an Organized Health Care Education/Training Program; Emergency Provider Emergency Medicine; Visit Provider Internal Medicine Cardiovascular Disease | DX: R00.0 Tachycardia, unspecified (principal) | CPT/HCPCS: 93010 ==

== ENCOUNTER → 2024-09-04 22:59 | Outpatient (BNV) | payer MEDICARE, SELFPAY | PROVIDERS: Admitting Provider Student in an Organized Health Care Education/Training Program; Emergency Provider Emergency Medicine; Visit Provider Student in an Organized Health Care Education/Training Program | DX: A41.9 Sepsis, unspecified organism (principal); N39.0 Urinary tract infection, site not specified; E87.0 Hyperosmolality and hypernatremia | CPT/HCPCS: 99223; 99232; 99239 ==

== ENCOUNTER 2024-09-10 11:43 | Inpatient (IN) | payer MEDICARE, SELFPAY ==
[2024-09-10] VITALS (11 sets, daily range): BP systolic 136–165; BP diastolic 60–82; PULSE 86–99; RESP 18–22; TEMP 36.1–37.6; O2SAT 88–99; BMI 22.2; BMI 19.7; BMI 22.8
--- NOTE | ~2024-09-10 | CT_ITS ---
CLINICAL HISTORY: Evaluate for necrotizing pneumonia CT chest without contrast Comparison: CR/SR - XR CHEST 1V - 09/10/24 12:[address]/SR - CT ABDOMEN PELVIS WO IV CON - 09/04/24 19:12 EDT CR - XR CHEST 1V - 09/04/24 17:[address]/OR/SR - CT CHEST WO IV CON - 08/17/24 11:39 EDT Findings: The heart is normal size. The visualized thyroid and mediastinum are unremarkable. Severe emphysema. New consolidation of the left upper lobe anterior to the fissure with cavitation measures 5.5 x 6.8 cm in size series 4, image 48. Pleural-based consolidation of the left lower lobe with cavitation and internal complex fluid 3.3 x 6 cm in size image 78. Additional cavitary area of the left lung base 5 x 8.7 cm in size on image 111. The visualized upper abdomen is unremarkable. No acute fractures. IMPRESSION: Multiple cavitary opacities of the left lung involving the left upper and lower lobes concerning for necrotizing pneumonia/pulmonary abscess. This document has been electronically signed by: Brant Olsen MD on 09/10/2024 17:47:02
--- NOTE | ~2024-09-10 | XR_ITS ---
EXAMINATION: XR CHEST CLINICAL INFORMATION: cough aspiration risk COMPARISON: 09/04/2024, CT chest 08/17/2024. TECHNIQUE: Frontal view of the chest was obtained. FINDINGS: The cardiac, hilar, and mediastinal contours are normal. Aortic mural calcifications. Lungs demonstrate a large cavitary abnormality in the left upper lung. Previously only a small opacity was present in this region. In addition, there is a left perihilar rounded masslike opacity, also possibly cavitary. There are linear changes in the left lung base. The right lung is clear. There is underlying emphysema. No focal osseous or soft tissue abnormality. XR/XR chest 1V IMPRESSION: 1. Interval development of large cavitary lesion left upper lung. Necrotizing pneumonia suspected. 2. Similar rounded opacity left perihilar region, also likely partially cavitary. 3. The right lung remains clear. 4. There is underlying emphysema. Electronically signed by: Errol Alonso MD 09/10/2024 01:33 PM EDT
--- NOTE | 2024-09-10 11:50 | ECG_ITS ---
Test Reason : dyspnea Blood Pressure : */* mmHG Vent. Rate : 99 BPM Atrial Rate : 99 BPM P-R Int : 142 ms QRS Dur : 82 ms QT Int : 344 ms P-R-T Axes : 68 66 71 degrees QTcB Int : 441 ms Normal sinus rhythm Nonspecific ST and T wave abnormality Abnormal ECG When compared with ECG of 04-Sep-2024 17:40, No significant change was found Referred By: Tata Duarte Electronically Signed By: MEG KILGORE MD
--- NOTE | 2024-09-10 11:56 | ED.AMS ---
HPI - Altered Mental Status General Chief Complaint: General Medical Stated Complaint: SNF STS UTI,MORE ALTERED,FTT PER EMS Source: patient, EMS and old records reviewed Mode of arrival: EMS Limitations: altered mental status History of Present Illness ED Provider: SUSANA HPI narrative: 84 yo male with PMH of dysphagia, UTI Kleb oxytoca S to cefepime, dementia, HTN who is under guardianship and resides at [facility] - it looks like he has been agitated and refusing care was started on cefuroxime on 09/09 for UTI. Today he became more weak but also ?agitated to the point staff told EMS they gave undisclosed route and dose of versed. EMS found him choking on his secretions, weak, and frail appearing. Patient just moans and cannot provide history. He does localize to pain MD complaint: altered mental status and weakness Onset (ago): day(s) (1) Severity: severe Consistency of symptoms: getting Worse Context: history of similar presentation Associated symptoms: loss of appetite, malaise, shortness of breath and weakness Treatments prior to arrival: other (?versed) Related Data Home Medications ?Medication ?Instructions ?Recorded ?Confirmed acetaminophen 325 mg tablet 650 mg PO Q6H PRN Headache/Pain 02/14/24 09/05/24 (Scale Score 1-3) magnesium hydroxide 400 mg/5 mL 30 ml PO DAILY PRN Constipation, 02/14/24 09/05/24 oral suspension (Milk of Magnesia) no bm in 3 days bisacodyl 10 mg rectal suppository 10 mg [place] DAILY PRN constipation, 07/23/24 09/05/24 is no bm for 8 hrs after M.O.M. mirtazapine 15 mg tablet (Remeron) 15 mg PO BEDTIME 08/05/24 09/05/24 melatonin 3 mg tablet 6 mg PO BEDTIME 08/17/24 09/05/24 amlodipine 10 mg tablet 10 mg PO DAILY 09/05/24 09/05/24 diazepam 5 mg tablet 2.5 mg PO BID contractures 09/05/24 09/05/24 sodium phosphates 19 gram-7 118 ml IL DAILY PRN constipation, 09/05/24 09/05/24 gram/118 mL enema (Fleet Enema) is no bm for 8 hrs after suppository Previous Rx's ?Medication ?Instructions ?Recorded polyethylene glycol 3350 17 gram 17 g PO DAILY #0 ea 02/14/24 oral powder packet cefuroxime axetil 500 mg tablet 500 mg PO BID 7 days #14 tabs 09/08/24 Allergies Allergy/AdvReac Type Severity Reaction Status Date / Time No Known Allergies Allergy Verified 09/10/24 11:59 Review of Systems Review of Systems: ROS unable to be obtained due to altered mental status PMFSH Past Medical History Attestation statement: The following information was validated with the patient. Source: old records reviewed Medical History Cognitive and behavioral changes Hypertension Dementia with behavioral disturbance Social History Social History Household Members: Unknown / Unable to assess Housing: Shelter Do you presently have visiting nurse or other home services: No Alcohol intake: unknown Comment: bedside commode during daytime Patient Tobacco Use Status: Tobacco use Unknown Advance Directives: Yes Advance Directives on File: Yes Advance Directives Date on File: 05/29/24 service: No Sexual orientation: Straight/Heterosexual Physical Exam ED Vital Signs: Vital Signs - 24 hr 09/10/24 11:50 09/10/24 12:39 09/10/24 12:52 Temperature 99.7 F Pulse Rate 95 99 97 Respiratory Rate 22 H 18 20 Blood Pressure 141/74 H 136/74 142/78 H Pulse Oximetry 88 L 92 97 Oxygen Delivery Method Room Air Nasal Cannula Nasal Cannula Oxygen Flow Rate 2 2 09/10/24 13:24 Temperature 97.3 F Pulse Rate 86 Respiratory Rate 19 Blood Pressure 146/74 H Pulse Oximetry 92 Oxygen Delivery Method Nasal Cannula Oxygen Flow Rate 2 BMI result Body Mass Index 19.7 Appearance: weak appearing, frail, confused localizes to pain, mild acute distress. Eyes: Pupils equal, round and reactive to light. ENT: Pharynx dry MM Neck: Normal inspection. Neck supple. CVS: Normal heart rate and rhythm. Pulses normal. Respiratory: Mild respiratory distress - labored. Breath sounds very coarse and junky cough he is able to clear but it is weak , 88% on RA Abdomen: Soft and nontender. Skin: Skin warm and dry. Normal skin color. Normal skin turgor. Extremities: No lower extremity edema. has heel boots on Neuro: confused and weak, localizes to pain Medications Administered Discontinued Medications Generic Name Dose Route Start Last Admin Trade Name Scott PRN Reason Stop Dose Admin Cefepime HCl 2 gm in 50 mls @ 100 mls/hr 09/10/24 11:48 09/10/24 12:41 Maxipime IV 09/10/24 12:17 100 mls/hr ONCE ONE Administration Lactated Ringer's 1,764 mls @ 1,764 mls/hr 09/10/24 11:53 09/10/24 12:42 Lr 30 ml/kg infuse over 1 hr (1764 ml) 09/10/24 12:52 1,764 mls/hr IV Administration .Q1H ONE Medical Decision Making Medical Decision Making MDM Narrative: 84 yo male with PMH of dysphagia, UTI Kleb oxytoca S to cefepime, dementia, HTN here with AMS, hypoxia, concern for aspiration but also has UTI - will obtain sepsis protocol, start on IVF, cefepime given prior UA susceptibilities, if aspiration present will add on flagyl as well. Given appearance anticipate admission for IV abx. Differential Diagnosis Differential Diagnoses: The differential diagnosis associated with the presentation includes pneumonia, UTI, aspiration, FTT Admission/Observation Consideration of admission/observation: Escalation of care including admission/observation considered admit for hypoxia, aspiration, UTI Consult Healthcare Provider Management of the patient was discussed with: Hospitalist (will admit) Lab Data [facility] [place] Lab Attestation statement: I reviewed the patient's lab results. 09/10/24 12:34 09/10/24 12:34 Labs: Lab Results 09/10/24 09/10/24 Range/Units 12:34 12:44 WBC 12.7 H (4.8-10.8) X10*3/uL RBC 4.40 L (4.60-5.80) X10*6/uL Hgb 13.4 L (14.0-18.0) g/dl Hct 42.6 (42.0-52.0) % MCV 96.8 (80.0-98.0) fL MCH 30.5 (27.0-33.0) pg MCHC 31.5 (31.0-36.0) g/dl RDW 14.5 (11.0-16.0) % Plt Count 324 D (160-400) X10*3/uL MPV 11.4 (9.4-12.4) fL Immature Gran % (Auto) Cancelled Neut % (Auto) Cancelled Lymph % (Auto) Cancelled [place] % (Auto) Cancelled Eos % (Auto) Cancelled Baso % (Auto) Cancelled Lymph # (Auto) Cancelled [place] # (Auto) Cancelled Eos # (Auto) Cancelled Baso # (Auto) Cancelled Abs Immat Gran (auto) Cancelled Absolute Neuts (auto) Cancelled Absolute Nucleated RBC 0.000 (0.0-0.012) X10*3/uL Nucleated RBC % (auto) 0.0 (0.0-0.2) /100WBC Neutrophils % (Manual) 81 H (45-73) % Band Neutrophils % 7 H (3-5) % Lymphocytes % (Manual) 8 L (20-40) % Monocytes % (Manual) 1 L (2-11) % Metamyelocytes % 3 % Abs Neuts (Manual) 11.2 H (2.0-8.3) X10*3/uL Lymphocytes # (Manual) 1.0 L (1.2-4.9) X10*3/uL Monocytes # (Manual) 0.1 (0.1-1.2) X10*3/uL Metamyelocytes # 0.4 X10*3/uL Toxic Vacuolation PRESENT Platelet Estimate NORMAL (NORMAL) Plt Morphology Comment NORMAL RBC Morphology NORMAL VBG pH 7.41 (7.32-7.43) VBG pCO2 51 mmHg VBG pO2 27 mmHg VBG HCO3 33 H (22-26) mmol/L VBG O2 Saturation 32.0 % VBG Base Excess 7.3 mmol/L Sodium 158 H (135-145) mmol/L Potassium 3.4 (3.3-5.1) mmol/L Chloride 119 H (96-108) mmol/L Carbon Dioxide 29 (22-29) mmol/L Anion Gap 13 (12-20) BUN 16 (9-16) mg/dL Creatinine 0.61 (0.5-1.4) mg/dL Estim Creat Clear Calc 76.3 Estimated GFR > 60 Random Glucose 124 H (60-115) mg/dL Lactic Acid 2.3 H* (0.5-2.0) mmol/L Calcium 9.5 (8.4-10.2) mg/dL Magnesium 2.3 (1.6-2.6) mg/dL Total Bilirubin 0.5 (0.0-1.0) mg/dL Direct Bilirubin 0.3 (0.0-0.5) mg/dL AST 132 H (5-37) U/L ALT 111 H (0-40) U/L Alkaline Phosphatase 147 H (39-117) U/L Total Creatine Kinase 94 (38-174) U/L C-Reactive Protein 15.01 H (< or = 0.50) mg/dL B-Natriuretic Peptide 60 (<100) pg/mL Total Protein 6.5 (6.5-8.0) g/dL Albumin 2.8 L (3.5-5.0) g/dL Lipase 25 (8-78) U/L Procalcitonin 0.29 ng/mL Independent Interpretation I performed an independent interpretation of an: EKG and Plain X-Ray (L lung opacity) Interpretation: Rate: 99 Rhythm: NSR [place]: normal Normal P waves. Normal KAECY. Normal QRS complex. ST T wave : nonspecific ST T wave changes lateral leads artifact is present qTC: 441 prior studies: no acute ischemia The study has been interpreted contemporaneously by me. . Radiology Impression Discussion of test interpretation with radiology: I have reviewed the radiologist's reading. Independent Historian Clinical information obtained from an independent historian. History obtained from or confirmed by: EMS External Record Review External record reviewed: Outpatient record Procedures Procedure Narrative Procedure Narrative: Ultrasound Guided Peripheral Intravenous Catheter Placement Date/Time: Indication: Intravenous Access Location:L arm Provider: SUSANA Sequeira was approached by nursing staff and informed that multiple unsuccessful attempts had been made to establish IV access in the patient. The patients arm was surveyed with the ultrasound for verification of vessel collapsibility, patency, depth and caliber, as well as identification of nearby structures. The target area was prepped with chlorhexidine. A tourniquet was placed proximally on the extremity. Under real-time ultrasound guidance, a 20 G IV cath was advanced into the target vein. Dark blood was visualized in the flash chamber. The catheter was easily advanced into the vein. The catheter was evacuated of air and flushed with sterile saline. The catheter was secured in place with a tegaderm. The patient tolerated the procedure well and there were no complications. Estimated Blood Loss: 1mL Total Time for Procedure: 5min Performed by: SUSANA Date: 09/10/24 Time: 1236pm Critical Care Time Critical Care Time Critical Care Time: Yes Total Critical Care Time: 60 Attestation: Time is exclusive of separately billable procedures. Time includes: direct patient care, patient reassessment, coordination of patient care, interpretation of data (laboratory data, pulse oximetry, arterial blood gases and chest xrays), review of patient's medical records, medical consultation and documentation of patient care. Procedures excluded from critical care time: sepsis protocol, electrocardiography. I attest to this time spent taking care of the patient Discharge Plan Discharge Clinical Impression: Acute hypernatremia, Acidosis, lactic, Aspiration pneumonia, Hypoxia Patient Disposition: Admitted As Inpatient Prescriptions: No Action bisacodyl 10 mg Suppository 10 mg IL DAILY PRN (Reason: constipation, is no bm for 8 hrs after M.O.M.) Rx Instructions: If no BM for 8 hours after M.O.M amlodipine 10 mg Tablet 10 mg PO DAILY Fleet Enema 19-7 gram/118 mL Enema 118 ml [place] DAILY PRN (Reason: constipation, is no bm for 8 hrs after suppository) diazepam 5 mg Tablet 2.5 mg PO BID cefuroxime axetil 500 mg tablet 500 mg PO BID 7 Days Qty: 14 0RF polyethylene glycol 3350 17 gram Powder In Packet 17 g PO DAILY Qty: 0 0RF acetaminophen 325 mg Tablet 650 mg PO Q6H PRN (Reason: Headache/Pain (Scale Score 1-3)) magnesium hydroxide [Milk of Magnesia] 400 mg/5 mL Suspension 30 ml PO DAILY PRN (Reason: Constipation, no bm in 3 days) Rx Instructions: (Step 1) If no BM for 3 days mirtazapine [Remeron] 15 mg Tablet 15 mg PO BEDTIME melatonin 3 mg Tablet 6 mg PO BEDTIME Print Language: Unable To Collect
[2024-09-10] MEDS: cefEPime HCl/D5W 2 GM/50 ML PIGGYBACK IV ×2 (12:41→20:15)
[2024-09-10] MEDS: LACTATED RINGERS 1764 ML IV (12:42)
--- NOTE | 2024-09-10 12:42 | PC.NURSE ---
pt is alert but not able to answer questions-pt will gurgle uncomprehending words on and off, pt is coming from [facility] for failure to thrive, pt has a junky wet cough, ls junky as well, pt upper extremities are covered in bruises, and both arms have wrapped in dressings from the facility, the right side of the patients's face/chin area appears like there is scratches, vs stable and ns on the monitor pt is a hard stick having difficulty obtained iv access and blood work, dr wells was able to obtain a 20 gague in the left ac area via ultra sound also attempted to straight cath the pt prior to the abx but this rn was not able to advance the catheter do to enlarged prostate, another rn attempted as well and still unable to advance the catheter
[2024-09-10 12:45] LABS: Hematocrit 42.6 % (42.0-52.0); Hemoglobin 13.4 g/dl (14.0-18.0); Mean Corpuscular HGB Conc 31.5 g/dl (31.0-36.0); Mean Corpuscular Hemoglobin 30.5 pg (27.0-33.0); Mean Corpuscular Volume 96.8 fL (80.0-98.0); Mean Platelet Volume 11.4 fL (9.4-12.4); Platelet Count 324 X10*3/uL (160-400); Red Cell Distribution Width 14.5 % (11.0-16.0); White Blood Count 12.7 X10*3/uL (4.8-10.8)
[2024-09-10 12:47] LABS: Venous Blood Gas Refer to POC result
[2024-09-10 12:47] LABS: VBG Base Excess 7.3 mmol/L; VBG HCO3 33 mmol/L (22-26); VBG pCO2 51 mmHg; VBG pH 7.41 (7.32-7.43); VBG pO2 27 mmHg
[2024-09-10 13:05] LABS: Lactic Acid 2.3 mmol/L (0.5-2.0)
[2024-09-10 13:07] LABS: B Type Natriuretic Peptide 60 pg/mL (<100)
[2024-09-10 13:10] LABS: Alanine Aminotransferase 111 U/L (0-40); Albumin Level 2.8 g/dL (3.5-5.0); Alkaline Phosphatase 147 U/L (39-117); Anion Gap 13 (12-20); Aspartate Amino Transferase 132 U/L (5-37); Bilirubin Direct 0.3 mg/dL (0.0-0.5); Bilirubin Total 0.5 mg/dL (0.0-1.0); Blood Urea Nitrogen 16 mg/dL (9-16); C Reactive Protein 15.01 mg/dL (< or = 0.50); Calcium 9.5 mg/dL (8.4-10.2); Carbon Dioxide 29 mmol/L (22-29); Chloride 119 mmol/L (96-108); Creatinine Clr Calc Pharmacy 76.3; Estimated Glomerular Filt Rate > 60; Glucose Random 124 mg/dL (60-115); Lipase 25 U/L (8-78); Magnesium 2.3 mg/dL (1.6-2.6); Potassium 3.4 mmol/L (3.3-5.1); Sodium 158 mmol/L (135-145); Total Protein 6.5 g/dL (6.5-8.0)
[2024-09-10 13:13] LABS: Band Neutrophils Percent 7 % (3-5); Lymphocytes Percent Manual 8 % (20-40); Metamyelocytes Absolute 0.4 X10*3/uL; Metamyelocytes Percent 3 %; Monocytes Absolute Manual 0.1 X10*3/uL (0.1-1.2); Monocytes Percent Manual 1 % (2-11); Neutrophils Absolute Manual 11.2 X10*3/uL (2.0-8.3); Neutrophils Percent Manual 81 % (45-73)
[2024-09-10 13:15] LABS: Platelet Estimate NORMAL (NORMAL); Platelet Morphology Comment NORMAL; RBC Morphology NORMAL; Toxic Vacuolation PRESENT
[2024-09-10 13:25] LABS: Procalcitonin 0.29 ng/mL
--- OUTSIDE RECORDS SUMMARY | 2024-09-10 13:33 | XMS_ITS | Clinical Summary ---
Author Organization [address] Address [address] [place] [address] Phone Care Team Providers Care Reinspector Name Role Phone Thania Whittington NP Primary Care Provider Encounters Date Type Department Care Team Description 09/04/2024 Lab Requisition [facility] [address] [place] [phone] Rebecca Ling MD Unspecified infectious disease; Fever, unspecified 08/24/2024 Lab Requisition [facility] [address] [place] [phone] Rebecca Ling MD Chronic obstructive pulmonary disease, unspecified (CMS/HCC V24, CMS/HCC V28) 08/11/2024 Lab Requisition [facility] [address] [place] [phone] Thania Whittington NP Essential (primary) hypertension; Adult failure to thrive; Alzheimer's disease, unspecified (CODE) (CMS/HCC V24, CMS/[facility] V28) from Last 3 Months Social History [...] (1 - Tdap) 1960 Pneumococcal Vaccine: 50+ Years (1 of 2 - PCV) 1960 Zoster Vaccines (1 of 2) 1991 RSV Immunization Adult Patients (1 - 1-dose 75+ series) 2016 COVID-19 Vaccine ( - 2023-2 5 season) 2023 Cholesterol Screening (Lipid Panel) 08/12/2024 Depression Screening 08/12/2024 Falls Risk Assessment 08/12/2024 Medicare Annual Wellness Visit 08/12/2024 Social Influencers of Health Screening 08/12/2024 Influenza Vaccine (Season Ended) 2024 Hypertension/CHF/CAD Annual BMP Blood Test 09/04/2025 09/04/2024, 08/24/2024, 08/11/2024 HIB Vaccines Aged Out No longer [...] to complete this topic RSV Immunization Patients Under 20 months Aged Out No longer eligible b ased on patient's age to complete this topic Varicella Vaccines Aged Out No longer eligible based on patient's age to complete this topic Procedures Procedure Name Priority Date/Time Associated Diagnosis Comments COMPREHENSIVE METABOLIC PANEL STAT 09/04/2024 10:20 AM EDT Unspecified infectious disease Fever, unspecified COMPLETE BLOOD COUNT STAT 09/04/2024 10:20 AM EDT Unspecified infectious disease Fever, unspecified BASIC METABOLIC PANEL Routine 08/24/2024 11:20 AM EDT Chronic obstructive pulmonary disease, unspecified (CMS/HCC V24, CMS/HCC V28) COMPLETE BLOOD COUNT Routine 08/24/2024 11:20 AM EDT Chronic obstructive pulmonary disease, unspecified (CMS/HCC V24, CMS/HCC V28) FOLATE Routine 08/11/2024 7:42 AM EDT Essential (primary) hypertension Adult failure to thrive Alzheimer's disease, unspecified (CODE) (CMS/HCC V24, CMS/[facility] V28) VITAMIN B12 Routine 08/11/2024 7:42 AM EDT Essential (primary) hypertension Adult failure to thrive Alzheimer's disease, unspecified (CODE) ([facility] V24, [facility] V28) THYROID STIMULATING HORMONE Routine 08/11/2024 7:42 AM EDT Essential (primary) hypertension Adult failure to thrive Alzheimer's disease, unspecified (CODE) ([facility] V24, [facility] V28) BASIC METABOLIC PANEL Routine 08/11/2024 7:42 AM EDT Essential (primary) hypertension Adult failure to thrive Alzheimer's disease, unspecified (CODE) ([facility] V24, [facility] V28) COMPLETE BLOOD COUNT Routine 08/11/2024 7:42 AM EDT Essential (primary) hypertension Adult failure to thrive Alzheimer's disease, unspecified (CODE) ([facility] V24, [facility] V28) from Last 3 Months Results * (ABNORMAL) Complete blood count (09/04/2024 10:20 AM EDT) Only the most recent of3 resultswithin the time period is included. WBC 15.8(H) 4.8 - 10.8 K/mcL LAB HEMETOLOGY METHOD 09/04/2024 11:03 AM [facility] RBC 4.50 4.50 - 5.50 M/mcL LAB HEMETOLOGY METHOD 09/04/2024 11:03 AM [facility] Hemoglobin 14.1 13.5 - 17.5 g/dL LAB HEMETOLOGY METHOD 09/04/2024 11:03 AM [facility] Hematocrit 43.5 42.0 - 54.0 % LAB HEMETOLOGY METHOD 09/04/2024 11:03 AM [facility] MCV 96.0 79.0 - 98.0 FL LAB HEMETOLOGY METHOD 09/04/2024 11:03 AM EDT [facility] MCH 31.1 27.0 - 32.0 pcg LAB HEMETOLOGY METHOD 09/04/2024 11:03 AM EDT [facility] MCHC 32.4 32.0 - 37.0 g/dL LAB HEMETOLOGY METHOD 09/04/2024 11:03 AM EDT [facility] RDW 13.6 11.0 - 15.0 % LAB HEMETOLOGY METHOD 09/04/2024 11:03 AM T [facility] Platelets 308 130 - 400 K/mcL LAB HEMETOLOGY METHOD 09/04/2024 11:03 AM [facility] MPV 11.2(H) 7.0 - 11.0 FL LAB HEMETOLOGY METHOD [facility]04[facility] NRBC 0.0 <1.0 % LAB HEMETOLOGY METHOD 09/04/2024 11:03 AM [facility] NRBC Absolute 0.00 <0.10 K/mcL LAB HEMETOLOGY METHOD 09/04/2024 11:03 AM [facility] Blood Venous blood specimen / Unknown Venipuncture / Unknown 09/04/2024 10:20 AM EDT 09/04/2024 11:00 AM EDT us Rebecca Ling MD LAB BLOOD ORDERABLES Fin al Result [facility] [address] [place] [address], * (ABNORMAL) Comprehensive metabolic panel (09/04/2024 10:20 AM EDT) [facility] Signature Sodium 149(H) 133 - 145 mmol/L LAB CHEMISTRY METHOD 09/04/2024 11:44 AM [facility] Potassium 3.5 3.5 - 5.5 mmol/L LAB CHEMISTRY METHOD 09/04/2024 11:44 AM [facility] Chloride 118(H) 96 - 110 mmol/L LAB CHEMISTRY METHOD 09/04/2024 11:44 AM [facility] CO2 24 21 - 32 mmol/L LAB CHEMISTRY METHOD 09/04/2024 11:44 AM [facility] Anion Gap 7 3 - 11 LAB CHEMISTRY METHOD 09/04/2024 11:44 AM [facility] Glucose 196(H) 70 - 100 mg/dL LAB CHEMISTRY METHOD 09/04/2024 11:44 AM [facility] BUN 27(H) 5 - 25 mg/dL LAB CHEMISTRY METHOD 09/04/2024 11:44 AM [facility] Creatinine 0.71 0.70 - 1.30 mg/dL LAB CHEMISTRY METHOD 09/04/2024 11:44 AM [facility] eGFR 91 >=60 mL/min/1. 73m2 LAB CHEMISTRY METHOD 09/04/2024 11:44 AM [facility] Comment:Calculation based on the Chronic Kidney Disease Epidemiology Collaboration (CKD-EPI) equation refit without adjustment for race. BUN/Creatinine Ratio 38.0 LAB CHEMISTRY METHOD 09/04/2024 11:44 AM [facility] Calcium 9.4 8.5 - 10.5 mg/dL LAB CHEMISTRY METHOD 09/04/2024 11:44 AM [facility] AST (SGOT) 59(H) 10 - 42 unit/L LAB CHEMISTRY METHOD 09/04/2024 11:44 AM [facility] ALT (SGPT) 55 10 - 60 unit/L LAB CHEMISTRY METHOD 09/04/2024 11:44 AM [facility] Alkaline Phosphatase 133(H) 42 - 121 unit/L LAB CHEMISTRY METHOD 09/04/2024 11:44 AM EDT [facility] Total Protein 6.4 6.0 - 8.0 g/dL LAB CHEMISTRY METHOD 09/04/2024 11:44 AM [facility] Albumin 2.4(L) 3.2 - 5.0 g/dL LAB CHEMISTRY METHOD 09/04/2024 11:44 AM EDT [facility] Total Bilirubin 1.1 0.0 - 1.4 mg/dL LAB CHEMISTRY METHOD 09/04/2024 11:44 AM EDT [facility] Blood Venous blood specimen / Unknown Venipuncture / Unknown 09/04/2024 10:20 AM EDT 09/04/2024 11:00 AM EDT us Rebecca Ling MD LAB BLOOD ORDERABLES Fin al Result [facility] [address] [place] [address], * (ABNORMAL) Basic metabolic panel (08/24/2024 11:20 AM EDT) Only the most recent of2 resultswithin the time period is included. Sodium 146(H) 133 - 145 mmol/L LAB CHEMISTRY METHOD 08/24/2024 2:14 PM [facility] Potassium 4.4 3.5 - 5.5 mmol/L LAB CHEMISTRY METHOD 08/24/2024 2:14 PM [facility] Chloride 115(H) 96 - 110 mmol/L LAB CHEMISTRY METHOD 08/24/2024 2:14 PM [facility] CO2 24 21 - 32 mmol/L LAB CHEMISTRY METHOD 08/24/2024 2:14 PM [facility] Anion Gap 7 3 - 11 LAB CHEMISTRY METHOD 08/24/2024 2:14 PM [facility] Glucose 93 70 - 100 mg/dL LAB CHEMISTRY METHOD 08/24/2024 2:14 PM EDT [facility] BUN 11 5 - 25 mg/dL LAB CHEMISTRY METHOD 08/24/2024 2:14 PM EDT [facility] Creatinine 0.41(L) 0.70 - 1.30 mg/dL LAB CHEMISTRY METHOD 08/24/2024 2:14 PM EDT [facility] eGFR 107 >=60 mL/min/1. 73m2 LAB CHEMISTRY METHOD 08/24/2024 2:14 PM EDT [facility] Comment:Calculation based on the??Chronic Kidney Disease Epidemiology Collaboration (CKD-EPI) equation refit??without adjustment for race. BUN/Creatinine Ratio 26.8 LAB CHEMISTRY METHOD 08/24/2024 2:14 PM EDT [facility] Calcium 8.3(L) 8.5 - 10.5 mg/dL LAB CHEMISTRY METHOD 08/24/2024 2:14 PM EDT [facility] Blood Venous blood specimen / Unknown Venipuncture / Unknown 08/24/2024 11:20 AM EDT 08/24/2024 12:49 PM EDT Rebecca Ling MD LAB BLOOD ORDERABLES Fin al Result [facility] [address] [place] [address], * Thyroid stimulating hormone (08/11/2024 7:42 AM EDT) TSH 2.49 0.40 - 4.00 mcIU/mL LAB CHEMISTRY METHOD 08/11/2024 1:01 PM EDT [facility] Blood Venous blood specimen / Unknown Venipuncture / Unknown 08/11/2024 7:42 AM EDT 08/11/2024 9:54 AM EDT Thania Whittington NP LAB BLOOD ORDERABLES Final Resul t Performing Organization Address [facility] Co de Phone Number [facility] [address] [place] [address], [place] [phone] * Folate (08/11/2024 7:42 AM EDT) Pathologist [facility] Folate 7.7 2.8 - 17.0 ng/ml LAB CHEMISTRY METHOD 08/11/2024 11:44 AM EDT [facility] Blood Venous blood specimen / Unknown Venipuncture / Unknown 08/11/2024 7:42 AM EDT 08/11/2024 9:54 AM EDT us Thania Whittington NP LAB BLOOD ORDERABLES Final Resul t Performing Organization Address [facility] de Phone Number [facility] [address] [place] [address], [place] [phone] * Vitamin B12 (08/11/2024 7:42 AM EDT) [facility] Vitamin B-12 363 250 - 900 pcg/mL LAB CHEMISTRY METHOD 08/11/2024 11:44 AM EDT [facility] Blood Venous blood specimen / Unknown Venipuncture / Unknown 08/11/2024 7:42 AM EDT 08/11/2024 9:54 AM EDT us Thania Whittington NP LAB BLOOD ORDERABLES Final Resul t Performing Organization Address City/[facility] Co de Phone Number [facility] [address] [place] [address], [place] [phone] from Last 3 Months Insurance MEDICARE MEDICAID - [place] Care Teams Reinspector Relationship Specialty Start Date End Date Thania Whittington NP [address] [place] [address] PCP - General Nurse Practitioner 08/11/24
[2024-09-10] MEDS: metroNIDAZOLE/NS 500 MG/100 ML PIGGYBACK 100 MG IV (13:44)
[2024-09-10] MEDS: vancomycin HCL 1,500 MG in 0.9 % Sodium Chloride 500 ML 333.33 MG IV (13:44)
[2024-09-10 13:46] LABS: Influenza A PCR NEGATIVE (Negative); Influenza B PCR NEGATIVE (Negative); Resp Syncy Virus RNA Qual PCR NEGATIVE (Negative); SARS COV2 PCR INHOUSE NEGATIVE (Negative)
--- NOTE | 2024-09-10 13:57 | PC.NURSE ---
Pt desating to 80 while asleep. Placed on 4 L oxymask. Now 96%
[2024-09-10 14:42] LABS: Reflex Lactate? Lactic Acid Added
--- NOTE | 2024-09-10 14:50 | PC.NURSE ---
Pt L Ac Iv infiltrated all fluids stopped to that line
--- NOTE | 2024-09-10 14:56 | PHA.MEDREC ---
Pharmacy Consult ? Medication Reconciliation Pharmacy has completed the medication reconciliation. Utilized list from [facility] [phone].
--- NOTE | 2024-09-10 15:09 | P.HPHOSP_ITS ---
History of Present Illness Date of Service: 09/10/24 Chief Complaint: aspiration 84-year-old male with past medical history of dysphagia, UTI with Klebsiella, dementia, hypertension under guardianship [facility] presents with agitation and subsequent shortness of breath and likely aspiration pneumonia. Patient recently discharged from [facility] after prolonged hospitalization (greater than 6 months). .. See previous notes for detail. Recent discharge 09/07. Was on cefepime at [facility] however failed outpatient therapies. Presents after choking episode x-ray suspicious for aspiration pneumonia Review of Systems 2 Review of Systems: Unable to obtain [facility] Medical History Cognitive and behavioral changes Hypertension Dementia with behavioral disturbance Social History Household Members: Unknown / Unable to assess Housing: Long-Term Do you presently have visiting nurse or other home services: No Alcohol intake: unknown Comment: bedside commode during daytime Patient Tobacco Use Status: Tobacco use Unknown Advance Directives: Yes Advance Directives on File: Yes Advance Directives Date on File: 05/29/24 service: No Sexual orientation: Straight/Heterosexual Meds Allergies Allergy/AdvReac Type Severity Reaction Status Date / Time No Known Allergies Allergy Verified 09/10/24 11:59 Active Medications: Current Medications Acetaminophen (Acetaminophen 325 Mg Tablet) 650 mg PO Q6H PRN PRN Reason: Pain, Mild 1-3,fever,headache Calcium Carbonate (Calcium Carbonate 750 Mg Tab.Chew) 750 mg PO Q4H PRN PRN Reason: Heartburn Enoxaparin Sodium (Enoxaparin Sodium 40 Mg/0.4 Ml Syringe) 40 mg SUBCUT Q24H [facility]LO Dextrose/Sodium Chloride (D5ns) 1,000 mls @ 100 mls/hr IVCONT .Q10H [facility]LO Cefepime HCl 1 gm/ Sodium (Chloride) 50 mls @ 100 mls/hr IV Q12H [facility] Metronidazole (Flagyl) 500 mg in 100 mls @ 100 mls/hr IV Q12H [facility] Magnesium Hydroxide (Milk Of Magnesia 30 Ml Oral.Susp) 30 ml PO DAILY PRN PRN Reason: Constipation Melatonin (Melatonin 3 Mg Tablet) 6 mg PO BEDTIME PRN PRN Reason: Insomnia Ondansetron HCl (Ondansetron Hcl 4 Mg/2 Ml Vial) 4 mg IVPUSH Q8H PRN PRN Reason: Nausea and Vomiting Pharmacy Consult (Consult Rx Vancomycin Dosing) 1 each MISCELLANE DAILY PRN PRN Reason: Consult order Sodium Chloride (0.9 % Sodium Chloride Flush 3 Ml Syringe) [facility]ations ?Medication ?Instructions ?Recorded ?Confirmed ?Last Taken ?Type acetaminophen 325 mg tablet 650 mg PO Q6H PRN Headache/Pain 02/14/24 09/10/24 07/24/24 History (Scale Score 1-3) magnesium hydroxide 400 mg/5 mL 30 ml PO DAILY PRN Constipation, 02/14/24 09/10/24 08/10/24 History oral suspension (Milk of Magnesia) no bm in 3 days bisacodyl 10 mg rectal suppository 10 mg IN DAILY PRN constipation, 07/23/24 09/10/24 Unknown History is no bm for 8 hrs after M.O.M. mirtazapine 15 mg tablet (Remeron) 15 mg PO BEDTIME 08/05/24 09/10/24 09/09/24 History melatonin 3 mg tablet 6 mg PO BEDTIME 08/17/24 09/10/24 09/09/24 History amlodipine 10 mg tablet 10 mg PO DAILY 09/05/24 09/10/24 09/10/24 History diazepam 5 mg tablet 2.5 mg PO BID contractures 09/05/24 09/10/24 09/10/24 History sodium phosphates 19 gram-7 118 ml IN DAILY PRN constipation, 09/05/24 09/10/24 Unknown History gram/118 mL enema (Fleet Enema) is no bm for 8 hrs after suppository Physical Exam 2 Vital Signs and Narrative: Vital Signs: Last Vital Signs Temp 97.3 F 09/10/24 13:24 Pulse 93 09/10/24 13:57 Resp 21 H 09/10/24 13:57 BP 144/71 H 09/10/24 14:15 Pulse Ox 96 09/10/24 13:57 O2 Del Method Oxymask 09/10/24 13:57 O2 Flow Rate 4 09/10/24 13:57 BMI result Body Mass Index 19.7 Const: Other: Awake nonverbal ill-appearing Resp: Other: Diminished throughout with diffuse coarse rhonchi and scattered crackles Cardio: Other: Distant heart sounds; no S4; positive S1-S2; no S3 murmurs rubs or gallops GI: Other: Soft nontender nondistended normoactive bowel sounds Extrem: Other: No edema bilaterally Results Labs 09/10/24 12:34 09/10/24 12:34 Labs: Laboratory Results - last 24 hr 09/10/24 09/10/24 09/10/24 12:34 12:38 12:44 MCV 96.8 MCH 30.5 MCHC 31.5 RDW 14.5 Plt Count 324 D MPV 11.4 Immature Gran % (Auto) Cancelled Neut % (Auto) Cancelled Lymph % (Auto) Cancelled Bell % (Auto) Cancelled Eos % (Auto) Cancelled Baso % (Auto) Cancelled Lymph # (Auto) Cancelled Bell # (Auto) Cancelled Eos # (Auto) Cancelled Baso # (Auto) Cancelled Abs Immat Gran (auto) Cancelled Absolute Neuts (auto) Cancelled Absolute Nucleated RBC 0.000 Nucleated RBC % (auto) 0.0 Neutrophils % (Manual) 81 H Band Neutrophils % 7 H Lymphocytes % (Manual) 8 L Monocytes % (Manual) 1 L Metamyelocytes % 3 Abs Neuts (Manual) 11.2 H Lymphocytes # (Manual) 1.0 L Monocytes # (Manual) 0.1 Metamyelocytes # 0.4 Toxic Vacuolation PRESENT Platelet Estimate NORMAL Plt Morphology Comment NORMAL RBC Morphology NORMAL VBG pH 7.41 VBG pCO2 51 VBG pO2 27 VBG HCO3 33 H VBG O2 Saturation 32.0 VBG Base Excess 7.3 Anion Gap 13 Estim Creat Clear Calc 76.3 Estimated GFR > 60 Random Glucose 124 H Lactic Acid 2.3 H* Calcium 9.5 Magnesium 2.3 Total Bilirubin 0.5 Direct Bilirubin 0.3 AST 132 H ALT 111 H Alkaline Phosphatase 147 H Total Creatine Kinase 94 C-Reactive Protein 15.01 H B-Natriuretic Peptide 60 Total Protein 6.5 Albumin 2.8 L Lipase 25 Procalcitonin 0.29 Influenza Type A (PCR) NEGATIVE Influenza Type B (PCR) NEGATIVE RSV RNA Qual (PCR) NEGATIVE SARS-CoV-2 RNA (RT-PCR) NEGATIVE Imaging Radiologist's Impressions: Impressions Chest X-Ray 09/10/24 13:00 IMPRESSION: 1. Interval development of large cavitary lesion left upper lung. Necrotizing pneumonia suspected. 2. Similar rounded opacity left perihilar region, also likely partially cavitary. 3. The right lung remains clear. 4. There is underlying emphysema. Electronically signed by: Errol Alonso MD 09/10/2024 01:33 PM EDT RP Assessment and Plan (1) Aspiration pneumonia: Qualifiers: Aspiration pneumonia type: unspecified Laterality: left Lung location: unspecified part of lung Qualified Code(s): J69.0 - Pneumonitis due to inhalation of food and vomit Status: Acute (2) Hypoxia: Status: Acute (3) Acute hypernatremia: Status: Acute (4) Dementia with behavioral disturbance: Status: Acute Plan 84-year-old male with pertinent history of Alzheimer's dementia with behavioral disturbances, hypertension, dysphagia who was sent to the emergency department for evaluation of lethargy and fever. Unable to obtain history from the patient. History obtained from ER provider and chart review. Call placed to [facility] who stated patient became agitated earlier today and then became markedly short of breath. In the emergency room evaluation consistent with aspiration pneumonia 1. Aspiration pneumonia -await CTA to formalize diagnosis; rule out PE -vanco/cefepime/Flagyl (1 -supplemental O2 to maintain sats greater than equal to 92% -DuoNebs q.4 as needed 2. Hypernatremia -3.3 L negative free water deficit -D5 normal saline at 01:25 an hour -follow renals/divalents 3. Hypertension -acceptable control off therapies -resume orals when cleared by speech 4. Dementia -as per discussion with halfway staff patient at baseline -resume outpatient therapies when appropriate Full code Eziox Will require 2 midnights going forward of inpatient stay for IV antibiotics to treat aspiration pneumonia occurring at facility. This can not be achieved a lesser acute setting Quality Stroke Does the patient have a stroke diagnosis?: No VTE Prior VTE?: No VTE Risk Level:: Medical - moderate - high VTE Device Contraindication: Treatment Not Indicated VTE Drug Contraindication: N/A - Med Ordered
--- NOTE | 2024-09-10 15:31 | PHA.PROG ---
Admission Date/Time: September 10, 2024 13:37 Indication: Respiratory Weight in k.8 kg Serum Creatinine - Last 168 Hours 09/10/24 12:34 Creatinine 0.61 Estimated CrCl and GFR - Last 168 Hours 09/10/24 12:34 Estim Creat Clear Calc 76.3 Estimated GFR > 60 Vancomycin Loading Dose: 1500 mg Current Vancomycin Dosing Regimen: 1000mg q12h Vancomycin Monitoring using AUC goal of 400 - 600 range with trough as surrogate marker: 625, above goal, but we can dose reduce once pt is in therapeutic range, predicted trough 19.6 Date and Time for next Vancomycin Level to be drawn: 09/12 @ 1200 Pharmacist Comments on Vancomycin Plan: Vancomycin dosing will take advantage of [employer] as a clinical decision support tool that uses Bayesian modeling to calculate individual patient's pharmacokinetic parameters and forecast the patient's drug concentration time course with the target goal AUC 24 range of 400 - 600 mg/L/hr.
--- NOTE | 2024-09-10 15:33 | MHC.EDTECH ---
male purewick placed on pt with excellent tolerance
[2024-09-10 15:47] LABS: ~Lactic Acid-LAB USE ONLY 4.1 mmol/L (0.5-2.0)
--- NOTE | 2024-09-10 15:53 | PC.NURSE ---
Pt constantly bending arm delaying fluid and antibiotic administration
--- NOTE | 2024-09-10 16:46 | PC.NURSE ---
Pt repositioned and cleaned up after a bowel movement. Applied heel and buttock mepalex
[2024-09-10 17:15] LABS: Reflex Lactate? 2 Y
[2024-09-10] MEDS: 0.9 % Sodium Chloride Flush 3 ML SYRINGE IVFLUSH (17:44)
[2024-09-10] MEDS: Enoxaparin Sodium 40 MG/0.4 ML SYRINGE SUBCUT (17:47)
[2024-09-10 18:11] LABS: ~Lactic Acid-LAB USE ONLY 2.7 mmol/L (0.5-2.0)
[2024-09-10] MEDS: Dextrose 5 % and 0.9 % NaCl 1,000 ML 100 ML IVCONT (18:18)
--- NOTE | 2024-09-10 18:43 | HO.SKINPHOTO ---
Pt arrived to unit with non-blanchable redness to tip of nose due to oxymask, scattered skin tears on bilateral arms, large bruise and swelling to left arm, non-blanchable redness to left hip, two stage II to buttocks, redness to buttocks, right lateral foot PI unstageable, right ankle pressure injury unstageable. Hydrocolliod dressing applied to nose, xeroform and gauze wrap to skin tears, foam to left hip, foam to coccyx, foams to bilateral heels (blanchable redness), foam to right ankle, foam to lateral right foot. Wound care consulted, airloss ordered, nutrition consulted. Buttocks/ coccyx left hip Right foot Right ankle Right hand Right Nose
[2024-09-11] VITALS (10 sets, daily range): BP systolic 127–168; BP diastolic 62–74; PULSE 88–109; RESP 17–28; TEMP 36.6–38.7; O2SAT 88–98; BMI 22.8
[2024-09-11] MEDS: Dextrose 5 % and 0.9 % NaCl 1,000 ML 100 ML IVCONT ×2 (02:53→12:42)
[2024-09-11] MEDS: metroNIDAZOLE/NS 500 MG/100 ML PIGGYBACK 100 MG IV ×2 (03:00→13:31)
[2024-09-11] MEDS: vancomycin HCL 1,000 MG in 0.9 % Sodium Chloride 250 ML 270 MG IV ×2 (03:53→14:34)
[2024-09-11] MEDS: cefEPime HCl/D5W 2 GM/50 ML PIGGYBACK IV ×3 (05:08→20:21)
--- NOTE | 2024-09-11 10:49 | MHC.CM.PN ---
Addendum entered by Yaquelin Tipton 09/11/24 14:15: CM SPOKE TO JOVITA AT [facility] [phone], SHE REPORTED THERE WAS A NOTE IN PTS CHART ABOUT ADVANCED DIRECTIVES, BUT SHE IS UNABLE TO SEE THE STATUS. 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
[2024-09-11 11:10] LABS: MANUAL DIFF FLAG NO
--- NOTE | 2024-09-11 11:11 | MHC.CLN ---
NUTRITION NPO DIET DUE TO RECENT ASPIRATION PNEUMONIA. SIGNIFICANT WEIGHT LOSS X 6 MONTHS. 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 RECENT HX POOR PO INTAKE. MULTIPLE RECENT HOSPITALIZATIONS. SKIN WITH STAGE II PRESSURE INJURIES. HAD MAGIC CUP TID (870 KCALS, 27 G PROTEIN) AT PRIOR ADM. MONITOR FOR DIET ADVANCEMENT, PO INTAKE, SKIN INTEGRITY AND PLAN OF CARE. SEE CLINICAL NUTRITION ASSESSMENT 09/11/24.
[2024-09-11 11:14] LABS: Basophils Percent Auto 0.3 % (0-2); Eosinophils Percent Auto 0.1 % (0-4); Hemoglobin 11.5 g/dl (14.0-18.0); Lymphocytes Absolute Auto 0.9 X10*3/uL (1.2-4.9); Lymphocytes Percent Auto 5.8 % (20-40); Mean Corpuscular HGB Conc 31.9 g/dl (31.0-36.0); Mean Corpuscular Hemoglobin 30.9 pg (27.0-33.0); Mean Corpuscular Volume 96.8 fL (80.0-98.0); Monocytes Absolute Auto 0.5 X10*3/uL (0.1-1.2); Monocytes Percent Auto 3.4 % (2-11); NRBC Pct Auto 0.1 /100WBC (0.0-0.2); Neutrophils Absolute Auto 13.3 x10*3/uL (2.0-8.3); Neutrophils Percent Auto 88.4 % (45-73); Platelet Count 265 X10*3/uL (160-400); Red Blood Count 3.72 X10*6/uL (4.60-5.80); Red Cell Distribution Width 14.6 % (11.0-16.0)
--- NOTE | 2024-09-11 11:17 | P.PNIM_ITS ---
Subjective Subjective Date of Service: 09/11/24 Interval History: No acute issues overnight. Review of Systems Unable to obtain Physical Exam 2 Vital Signs: Vital Signs: Last Vital Signs Temp 97.9 F 09/11/24 07:05 Pulse 109 H 09/11/24 07:05 Resp 28 H 09/11/24 07:05 BP 154/73 H 09/11/24 07:05 Pulse Ox 92 09/11/24 07:05 O2 Del Method Oxymask 09/11/24 07:05 O2 Flow Rate 3.5 09/11/24 07:05 BMI result Body Mass Index 22.8 Const: Other: Awake nonverbal ill-appearing Resp: Other: Diminished throughout with diffuse coarse rhonchi and scattered crackles Cardio: Other: Distant heart sounds; no S4; positive S1-S2; no S3 murmurs rubs or gallops GI: Other: Soft nontender nondistended normoactive bowel sounds Extrem: Other: No edema bilaterally Objective Data Active Medications Acetaminophen (Acetaminophen 325 Mg Tablet) 650 mg PO Q6H PRN PRN Reason: Pain, Mild 1-3,fever,headache Calcium Carbonate (Calcium Carbonate 750 Mg Tab.Chew) 750 mg PO Q4H PRN PRN Reason: Heartburn Enoxaparin Sodium (Enoxaparin Sodium 40 Mg/0.4 Ml Syringe) 40 mg SUBCUT Q24H [facility] Last Admin: 09/10/24 17:47 Dose: 40 mg Documented By: RADHA Dextrose/Sodium Chloride (D5ns) 1,000 mls @ 100 mls/hr IVCONT .Q10H [facility] Last Admin: 09/11/24 02:53 Dose: 100 mls/hr Documented By: GISSELLE Metronidazole (Flagyl) 500 mg in 100 mls @ 100 mls/hr IV Q12H [facility] Last Infusion: 09/11/24 04:09 Dose: Infused Documented By: GISSELLE Cefepime HCl (Maxipime) 2 gm in 50 mls @ 100 mls/hr IV Q8H [facility] Last Infusion: 09/11/24 05:50 Dose: Infused Documented By: GISSELLE Vancomycin HCl 1,000 mg/ (Sodium Chloride) 270 mls @ 270 mls/hr IV Q12H [facility] Last Infusion: 09/11/24 05:12 Dose: Infused Documented By: GISSELLE Magnesium Hydroxide (Milk Of Magnesia 30 Ml Oral.Susp) 30 ml PO DAILY PRN PRN Reason: Constipation Melatonin (Melatonin 3 Mg Tablet) 6 mg PO BEDTIME PRN PRN Reason: Insomnia Ondansetron HCl (Ondansetron Hcl 4 Mg/2 Ml Vial) 4 mg IVPUSH Q8H PRN PRN Reason: Nausea and Vomiting Pharmacy Consult (Consult Rx Vancomycin Dosing) 1 each MISCELLANE DAILY PRN PRN Reason: Consult order Sodium Chloride (0.9 % Sodium Chloride Flush 3 Ml Syringe) 3 ml IVFLUSH QSHIFT [facility] Last Admin: 09/11/24 08:50 Dose: Not Given Documented By: BIB Non-Admin Reason: IV Running Labs 09/11/24 11:03 09/10/24 12:34 Labs: Laboratory Results - last 24 hr 09/10/24 09/10/24 09/10/24 12:34 12:38 12:44 MCV 96.8 MCH 30.5 MCHC 31.5 RDW 14.5 Plt Count 324 D MPV 11.4 Immature Gran % (Auto) Cancelled Neut % (Auto) Cancelled Lymph % (Auto) Cancelled Payette % (Auto) Cancelled Eos % (Auto) Cancelled Baso % (Auto) Cancelled Lymph # (Auto) Cancelled [place] # (Auto) Cancelled Eos # (Auto) Cancelled Baso # (Auto) Cancelled Abs Immat Gran (auto) Cancelled Absolute Neuts (auto) Cancelled Absolute Nucleated RBC 0.000 Nucleated RBC % (auto) 0.0 Neutrophils % (Manual) 81 H Band Neutrophils % 7 H Lymphocytes % (Manual) 8 L Monocytes % (Manual) 1 L Metamyelocytes % 3 Abs Neuts (Manual) 11.2 H Lymphocytes # (Manual) 1.0 L Monocytes # (Manual) 0.1 Metamyelocytes # 0.4 Toxic Vacuolation PRESENT Platelet Estimate NORMAL Plt Morphology Comment NORMAL RBC Morphology NORMAL VBG pH 7.41 VBG pCO2 51 VBG pO2 27 VBG HCO3 33 H VBG O2 Saturation 32.0 VBG Base Excess 7.3 Anion Gap 13 Estim Creat Clear Calc 76.3 Estimated GFR > 60 Random Glucose 124 H Lactic Acid 2.3 H* Lactic Acid F/U @ 2Hr Lactic Acid F/U @ 4Hr Calcium 9.5 Magnesium 2.3 Total Bilirubin 0.5 Direct Bilirubin 0.3 AST 132 H ALT 111 H Alkaline Phosphatase 147 H Total Creatine Kinase 94 C-Reactive Protein 15.01 H B-Natriuretic Peptide 60 Total Protein 6.5 Albumin 2.8 L Lipase 25 Procalcitonin 0.29 Influenza Type A (PCR) NEGATIVE Influenza Type B (PCR) NEGATIVE RSV RNA Qual (PCR) NEGATIVE SARS-CoV-2 RNA (RT-PCR) NEGATIVE 09/10/24 09/10/24 09/11/24 15:12 17:43 11:03 MCV 96.8 MCH 30.9 MCHC 31.9 RDW 14.6 Plt Count 265 MPV 11.0 Immature Gran % (Auto) 2.0 H Neut % (Auto) 88.4 H Lymph % (Auto) 5.8 L Payette % (Auto) 3.4 Eos % (Auto) 0.1 Baso % (Auto) 0.3 Lymph # (Auto) 0.9 L [place]ette # (Auto) 0.5 Eos # (Auto) 0.0 Baso # (Auto) 0.0 Abs Immat Gran (auto) 0.30 H Absolute Neuts (auto) 13.3 H Absolute Nucleated RBC 0.020 H Nucleated RBC % (auto) 0.1 Neutrophils % (Manual) Band Neutrophils % Lymphocytes % (Manual) Monocytes % (Manual) Metamyelocytes % Abs Neuts (Manual) Lymphocytes # (Manual) Monocytes # (Manual) Metamyelocytes # Toxic Vacuolation Platelet Estimate Plt Morphology Comment RBC Morphology VBG pH VBG pCO2 VBG pO2 VBG HCO3 VBG O2 Saturation VBG Base Excess Anion Gap Estim Creat Clear Calc Estimated GFR Random Glucose Lactic Acid Lactic Acid F/U @ 2Hr 4.1 H* Lactic Acid F/U @ 4Hr 2.7 H* Calcium Magnesium Total Bilirubin Direct Bilirubin AST ALT Alkaline Phosphatase Total Creatine Kinase C-Reactive Protein B-Natriuretic Peptide Total Protein Albumin Lipase Procalcitonin Influenza Type A (PCR) Influenza Type B (PCR) RSV RNA Qual (PCR) SARS-CoV-2 RNA (RT-PCR) Microbiology Microbiology Results: Microbiology 09/10/24 12:34 Blood Culture - Preliminary Blood - Venous Prelim: GNR Gram Stain only Assessment and Plan (1) Aspiration pneumonia: Status: Acute (2) Acute hypernatremia: Status: Acute Plan 84-year-old male with pertinent history of Alzheimer's dementia with behavioral disturbances, hypertension, dysphagia who was sent to the emergency department for evaluation of lethargy and fever. Unable to obtain history from the patient. History obtained from ER provider and chart review. Call placed to Hollister dre who stated patient became agitated earlier today and then became markedly short of breath. In the emergency room evaluation consistent with aspiration pneumonia 1. Aspiration pneumonia -CTA reviewed; pulmonary consult -vanco/cefepime/Flagyl (2) -supplemental O2 to maintain sats greater than equal to 92% -DuoNebs q.4 as needed 2. Hypernatremia -3.3 L negative free water deficit.. Await labs today and adjust appropriate -D5 normal saline at 01:25 an hour -follow renals/divalents 3. Hypertension -acceptable control off therapies -resume orals when cleared by speech 4. Dementia -as per discussion with assisted staff patient at baseline -resume outpatient therapies when appropriate Full code Lovenox Will require 2 midnights going forward of inpatient stay for IV antibiotics to treat aspiration pneumonia occurring at facility. This can not be achieved a lesser acute setting Quality Stroke Does the patient have a stroke diagnosis?: No VTE Prior VTE?: No VTE Risk Level:: Medical - moderate - high VTE Device Contraindication: Treatment Not Indicated VTE Drug Contraindication: N/A - Med Ordered
[2024-09-11 11:36] LABS: Alanine Aminotransferase 58 U/L (0-40); Albumin Level 2.2 g/dL (3.5-5.0); Alkaline Phosphatase 105 U/L (39-117); Aspartate Amino Transferase 60 U/L (5-37); Bilirubin Total 0.5 mg/dL (0.0-1.0); Blood Urea Nitrogen 11 mg/dL (9-16); Creatinine Clr Calc Pharmacy 105.7; Estimated Glomerular Filt Rate > 60; Glucose Fasting 114 mg/dL (60-99); Total Protein 5.1 g/dL (6.5-8.0)
[2024-09-11 11:45] LABS: Anion Gap 13 (12-20); Calcium 8.2 mg/dL (8.4-10.2); Carbon Dioxide 21 mmol/L (22-29); Chloride 125 mmol/L (96-108); Potassium 3.1 mmol/L (3.3-5.1); Sodium 156 mmol/L (135-145)
--- NOTE | 2024-09-11 11:56 | P.CDIM_ITS ---
PROVIDER RESPONSE TEXT: To clarify, the appropriate diagnosis supported by the clinical indicators: Acute QUERY TEXT: PHYSICIAN'S DOCUMENTATION REQUEST Date of Query: 09/11/2024 11:19 AM EDT Patient Name: Pernell Yung Admit Date: 09/10/2024 Dear Gabriel Lim DO, A review of the medical record indicates additional documentation may be needed. Please review below and update the documentation accordingly. Clinical Indicators: Ed Clinical impression 09/10/24 - Acidosis, Lactic LA 4.1/2.7 Clarify which of the following accurately represents the acuity of the Lactic acidosis, if agree: Possible options might include: Acute Chronic Other (explain) Clinically unable to determine (explain) Thank you, Reena Garcia, CCS, CDIS Use of terms such as suspected, likely, concern for, or probable (associated with a specific diagnosi s that is being evaluated, monitored, or treated as if it exists) are acceptable and can be coded in the inpatient se tting, when documented at the time of discharge. Please use your independent medical judgment in providing your response. THIS QUERY IS PART OF THE PERMANENT MEDICAL RECORD
[2024-09-11] MEDS: Enoxaparin Sodium 40 MG/0.4 ML SYRINGE SUBCUT (14:37)
--- NOTE | 2024-09-11 14:38 | PM.CNPUL ---
History of Present Illness History of Present Illness Consult date: 09/11/24 Chief complaint: aspiration pneumonia Narrative: 84-year-old gentleman with underlying dementia when recurrent aspirations, recent hospitalization, now rehospitalized on 09/08/2024 with what appears to be of another episode of aspiration pneumonia with Gram-negative bacteremia. CT chest shows developed left-sided pulmonary abscesses consistent with aspiration in a laying down position. Review of Systems Review of Systems: No Unobtainable due to mental status PMFSH Past Medical History Medical History Cognitive and behavioral changes Hypertension Dementia with behavioral disturbance Social History Social History Household Members: None Housing: [facility] Do you presently have visiting nurse or other home services: No Alcohol intake: unknown Comment: bedside commode during daytime Patient Tobacco Use Status: Tobacco use Unknown Second Hand Smoke Exposure: No Advance Directives Date on File: 05/29/24 service: No Sexual orientation: Straight/Heterosexual Meds Allergies Allergy/AdvReac Type Severity Reaction Status Date / Time No Known Allergies Allergy Verified 09/10/24 11:59 Active Medications: Current Medications Acetaminophen (Acetaminophen 325 Mg Tablet) 650 mg PO Q6H PRN PRN Reason: Pain, Mild 1-3,fever,headache Calcium Carbonate (Calcium Carbonate 750 Mg Tab.Chew) 750 mg PO Q4H PRN PRN Reason: Heartburn Enoxaparin Sodium (Enoxaparin Sodium 40 Mg/0.4 Ml Syringe) 40 mg SUBCUT Q24H [facility] Last Admin: 09/10/24 17:47 Dose: 40 mg Dextrose/Sodium Chloride (D5ns) 1,000 mls @ 100 mls/hr IVCONT .Q10H [facility] Last Infusion: 09/11/24 14:33 Dose: 0 mls/hr Metronidazole (Flagyl) 500 mg in 100 mls @ 100 mls/hr IV Q12H [facility] Last Admin: 09/11/24 13:31 Dose: 100 mls/hr Cefepime HCl (Maxipime) 2 gm in 50 mls @ 100 mls/hr IV Q8H [facility] Last Infusion: 09/11/24 13:35 Dose: Infused Vancomycin HCl 1,000 mg/ (Sodium Chloride) 270 mls @ 270 mls/hr IV Q12H [facility] Last Infusion: 09/11/24 05:12 Dose: Infused Magnesium Hydroxide (Milk Of Magnesia 30 Ml Oral.Susp) 30 ml PO DAILY PRN PRN Reason: Constipation Melatonin (Melatonin 3 Mg Tablet) 6 mg PO BEDTIME PRN PRN Reason: Insomnia Ondansetron HCl (Ondansetron Hcl 4 Mg/2 Ml Vial) 4 mg IVPUSH Q8H PRN PRN Reason: Nausea and Vomiting Pharmacy Consult (Consult Rx Vancomycin Dosing) 1 each MISCELLANE DAILY PRN PRN Reason: Consult order Sodium Chloride (0.9 % Sodium Chloride Flush 3 Ml Syringe) 3 ml IVFLUSH QSHIFT [facility] Last Admin: 09/11/24 08:50 Dose: Not Given Home Medications ?Medication ?Instructions ?Recorded ?Confirmed ?Last Taken ?Type acetaminophen 325 mg tablet 650 mg PO Q6H PRN Headache/Pain 02/14/24 09/10/24 07/24/24 History (Scale Score 1-3) magnesium hydroxide 400 mg/5 mL 30 ml PO DAILY PRN Constipation, 02/14/24 09/10/24 08/10/24 History oral suspension (Milk of Magnesia) no bm in 3 days bisacodyl 10 mg rectal suppository 10 mg IA DAILY PRN constipation, 07/23/24 09/10/24 Unknown History is no bm for 8 hrs after M.O.M. mirtazapine 15 mg tablet (Remeron) 15 mg PO BEDTIME 08/05/24 09/10/24 09/09/24 History melatonin 3 mg tablet 6 mg PO BEDTIME 08/17/24 09/10/24 09/09/24 History amlodipine 10 mg tablet 10 mg PO DAILY 09/05/24 09/10/24 09/10/24 History diazepam 5 mg tablet 2.5 mg PO BID contractures 09/05/24 09/10/24 09/10/24 History sodium phosphates 19 gram-7 118 ml IA DAILY PRN constipation, 09/05/24 09/10/24 Unknown History gram/118 mL enema (Fleet Enema) is no bm for 8 hrs after suppository Physical Exam Vital Signs: Vital Signs: Last Vital Signs Temp 97.9 F 09/11/24 07:05 Pulse 109 H 09/11/24 07:05 Resp 28 H 09/11/24 07:05 BP 154/73 H 09/11/24 07:05 Pulse Ox 92 09/11/24 07:05 O2 Del Method Oxymask 09/11/24 07:05 O2 Flow Rate 3.5 09/11/24 07:05 BMI result Body Mass Index 22.8 Const: General: no acute distress and lethargic Orientation/consciousness: lethargic Eyes: Sclerae: sclerae normal EOM: EOMs intact bilaterally Neck: Neck: Yes no lymphadenopathy, Yes trachea midline and Yes supple Resp: Effort & Inspection: normal respiratory effort and no respiratory distress Auscultation: crackles ([id number]) Cardio: Rate: tachycardic Rhythm: regular rhythm Heart sounds: no gallops, no murmurs and no rubs GI: Palpation (GI): Soft to palpation and Other GI palpation findings present ( Nontender) Auscultation: normal bowel sounds Extrem: General: Yes no pedal edema, No clubbing and No cyanosis Results Laboratory Findings 09/11/24 11:03 09/11/24 11:03 Abnormal lab findings: Abnormal Labs 09/10/24 09/10/24 09/10/24 12:34 12:44 15:12 WBC 12.7 H RBC 4.40 L Hgb 13.4 L Hct Immature Gran % (Auto) Neut % (Auto) Lymph % (Auto) Lymph # (Auto) Abs Immat Gran (auto) Absolute Neuts (auto) Absolute Nucleated RBC Neutrophils % (Manual) 81 H Band Neutrophils % 7 H Lymphocytes % (Manual) 8 L Monocytes % (Manual) 1 L Abs Neuts (Manual) 11.2 H Lymphocytes # (Manual) 1.0 L VBG HCO3 33 H Sodium 158 H Potassium Chloride 119 H Carbon Dioxide Random Glucose 124 H Fasting Glucose Lactic Acid 2.3 H* Lactic Acid F/U @ 2Hr 4.1 H* Lactic Acid F/U @ 4Hr Calcium AST 132 H ALT 111 H Alkaline Phosphatase 147 H C-Reactive Protein 15.01 H Total Protein Albumin 2.8 L 09/10/24 09/11/24 17:43 11:03 WBC 15.0 H RBC 3.72 L Hgb 11.5 L Hct 36.0 L Immature Gran % (Auto) 2.0 H Neut % (Auto) 88.4 H Lymph % (Auto) 5.8 L Lymph # (Auto) 0.9 L Abs Immat Gran (auto) 0.30 H Absolute Neuts (auto) 13.3 H Absolute Nucleated RBC 0.020 H Neutrophils % (Manual) Band Neutrophils % Lymphocytes % (Manual) Monocytes % (Manual) Abs Neuts (Manual) Lymphocytes # (Manual) VBG HCO3 Sodium 156 H Potassium 3.1 L Chloride 125 H Carbon Dioxide 21 L Random Glucose Fasting Glucose 114 H Lactic Acid Lactic Acid F/U @ 2Hr Lactic Acid F/U @ 4Hr 2.7 H* Calcium 8.2 L D AST 60 H ALT 58 H Alkaline Phosphatase C-Reactive Protein Total Protein 5.1 L Albumin 2.2 L Microbiology: Microbiology 09/10/24 12:34 Blood - Venous Blood Culture - Preliminary Prelim: GNR Gram Stain only Assessment and Plan (1) Aspiration pneumonia: Qualifiers: Aspiration pneumonia type: unspecified Laterality: left Lung location: unspecified part of lung Qualified Code(s): J69.0 - Pneumonitis due to inhalation of food and vomit Status: Acute (2) Pulmonary abscess: Status: Acute (3) Pulmonary aspiration: Status: Acute Plan Impression: 84-year-old gentleman with underlying advanced dementia and recurrent pulmonary aspiration admitted with aspiration pneumonia and developing left-sided pulmonary abscesses consistent with aspiration in laying down position. Recommendation: Consider further discussion of goals of care as patient is constantly score of aspiration. At this time, would suggest four-week treatment with Levaquin. Procedures Date of Service Date of Service: 09/11/24
[2024-09-11] MEDS: Acetaminophen Supp 650 MG SUPP.RECT PR ×2 (15:30→20:22)
[2024-09-11] MEDS: 0.9 % Sodium Chloride Flush 3 ML SYRINGE IVFLUSH (15:30)
--- NOTE | 2024-09-11 16:12 | P.CNID_ITS ---
History of Present Illness Data of Consult Service Date: 09/11/24 Requesting physician: Gabriel Lim Primary Care Provider: Unknown Physician HPI Reason for consult: pneumonia He presents with weakness and fatigue from facility. He has been refusing care and more confused. He has dementia and hypertension. Left lung CT scan nodules and consolidation. He is on Cefepime,Flagyl and Vancomycin. Review of Systems 2 Review of Systems: Yes all other systems are reviewed and are negative [facility] Past Medical History Medical History Cognitive and behavioral changes Hypertension Dementia with behavioral disturbance Family History Family history: reviewed and not pertinent Social History Social History Household Members: None Housing: [facility] Do you presently have visiting nurse or other home services: No Alcohol intake: unknown Comment: bedside commode during daytime Patient Tobacco Use Status: Tobacco use Unknown Second Hand Smoke Exposure: No Advance Directives Date on File: 05/29/24 service: No Sexual orientation: Straight/Heterosexual Meds Allergies Allergy/AdvReac Type Severity Reaction Status Date / Time No Known Allergies Allergy Verified 09/10/24 11:59 Active Medications: Current Medications Acetaminophen (Acetaminophen 325 Mg Tablet) 650 mg PO Q6H PRN PRN Reason: Pain, Mild 1-3,fever,headache Acetaminophen (Acetaminophen Supp 650 Mg Supp.Rect) 650 mg MO Q4H PRN PRN Reason: Fever Last Admin: 09/11/24 15:30 Dose: 650 mg Calcium Carbonate (Calcium Carbonate 750 Mg Tab.Chew) 750 mg PO Q4H PRN PRN Reason: Heartburn Enoxaparin Sodium (Enoxaparin Sodium 40 Mg/0.4 Ml Syringe) 40 mg SUBCUT Q24H [facility] Last Admin: 09/11/24 14:37 Dose: 40 mg Dextrose/Sodium Chloride (D5ns) 1,000 mls @ 100 mls/hr IVCONT .Q10H [facility] Last Infusion: 09/11/24 14:33 Dose: 0 mls/hr Metronidazole (Flagyl) 500 mg in 100 mls @ 100 mls/hr IV Q12H [facility] Last Infusion: 09/11/24 14:38 Dose: Infused Cefepime HCl (Maxipime) 2 gm in 50 mls @ 100 mls/hr IV Q8H [facility] Last Infusion: 09/11/24 13:35 Dose: Infused Vancomycin HCl 1,000 mg/ (Sodium Chloride) 270 mls @ 270 mls/hr IV Q12H [facility] Last Infusion: 09/11/24 15:34 Dose: Infused Magnesium Hydroxide (Milk Of Magnesia 30 Ml Oral.Susp) 30 ml PO DAILY PRN PRN Reason: Constipation Melatonin (Melatonin 3 Mg Tablet) 6 mg PO BEDTIME PRN PRN Reason: Insomnia Ondansetron HCl (Ondansetron Hcl 4 Mg/2 Ml Vial) 4 mg IVPUSH Q8H PRN PRN Reason: Nausea and Vomiting Pharmacy Consult (Consult Rx Vancomycin Dosing) 1 each MISCELLANE DAILY PRN PRN Reason: Consult order Sodium Chloride (0.9 % Sodium Chloride Flush 3 Ml Syringe) 3 ml IVFLUSH QSHIFT [facility] Last Admin: 09/11/24 15:30 Dose: 3 ml Home Medications ?Medication ?Instructions ?Recorded ?Confirmed ?Last Taken ?Type acetaminophen 325 mg tablet 650 mg PO Q6H PRN Headache/Pain 02/14/24 09/10/24 07/24/24 History (Scale Score 1-3) magnesium hydroxide 400 mg/5 mL 30 ml PO DAILY PRN Constipation, 02/14/24 09/10/24 08/10/24 History oral suspension (Milk of Magnesia) no bm in 3 days bisacodyl 10 mg rectal suppository 10 mg MO DAILY PRN constipation, 07/23/24 09/10/24 Unknown History is no bm for 8 hrs after M.O.M. mirtazapine 15 mg tablet (Remeron) 15 mg PO BEDTIME 08/05/24 09/10/24 09/09/24 History melatonin 3 mg tablet 6 mg PO BEDTIME 08/17/24 09/10/24 09/09/24 History amlodipine 10 mg tablet 10 mg PO DAILY 09/05/24 09/10/24 09/10/24 History diazepam 5 mg tablet 2.5 mg PO BID contractures 09/05/24 09/10/24 09/10/24 History sodium phosphates 19 gram-7 118 ml MO DAILY PRN constipation, 09/05/24 09/10/24 Unknown History gram/118 mL enema (Fleet Enema) is no bm for 8 hrs after suppository Physical Exam 2 Vital Signs: Vital Signs: Last Vital Signs Temp 101.6 F H 09/11/24 15:00 Pulse 97 09/11/24 15:00 Resp 24 H 09/11/24 15:00 BP 168/74 H 09/11/24 15:00 Pulse Ox 93 09/11/24 15:00 O2 Del Method Oxymask 09/11/24 15:00 O2 Flow Rate 7 09/11/24 15:00 BMI result Body Mass Index 22.8 Const: General: cooperative HEENT: Head: Yes normal to inspection Face and sinus: Yes normal facial exam Mouth: Normal oral and palatal mucosa present Teeth and gingiva: d entition normal Eyes: General: appearance normal, both eyes and all related structures P upils: Equal, round and reactive pupils present Resp: Effort & Inspection: decreased respiratory effort Cardio: Rate: regular rate Rhythm: regular rhythm GI: Palpation (GI): Soft to palpation and nontender : General: Yes no CVA tenderness Back/Spine/Pelvis: Back: no CVA tenderness Skin: General skin exam: no rashes or lesions noted Neuro: General: moves all extremities Cranial nerves: Yes Equal, round and reactive pupils present Extrem: General: Yes normal to inspection Psych: Appearance: grossly normal Results Labs 09/11/24 11:03 09/11/24 11:03 Labs: Short CBC 09/11/24 Range/Units 11:03 WBC 15.0 H (4.8-10.8) X10*3/uL Hgb 11.5 L (14.0-18.0) g/dl Hct 36.0 L (42.0-52.0) % Plt Count 265 (160-400) X10*3/uL BMP 09/11/24 11:03 Sodium 156 H Potassium 3.1 L Chloride 125 H Carbon Dioxide 21 L BUN 11 Creatinine 0.51 Calcium 8.2 L D Liver Function 09/11/24 Range/Units 11:03 Total Bilirubin 0.5 (0.0-1.0) mg/dL AST 60 H (5-37) U/L ALT 58 H (0-40) U/L Alkaline Phosphatase 105 (39-117) U/L Albumin 2.2 L (3.5-5.0) g/dL Microbiology Microbiology Results: Microbiology 09/10/24 12:34 Blood - Venous Blood Culture - Preliminary No growth after 24 hours. 09/10/24 12:34 Blood - Venous Blood Culture - Preliminary Prelim: GNR Gram Stain only Assessment and Plan (1) Pulmonary aspiration: Status: Acute (2) Pulmonary abscess: Status: Acute (3) Hypoxia: Status: Acute (4) Sepsis: Status: Acute (5) Acute UTI: Status: Acute Plan not sure if MRSA NPO on oxygen now more likely chronic aspiration with acute UTI,Klebsiella oxytoca cause of sepsis with gram negative blood. Would agree IV Cefepime and Flagyl and now on Vancomycin as well. Stop IV Vancomycin if screening MRSA nares negative (ordered), await cultures , if continues NPO then IV antibiotics depends on culture and sensitivity
[2024-09-12] MEDS: Dextrose 5 % and 0.9 % NaCl 1,000 ML 100 ML IVCONT (01:30)
[2024-09-12] MEDS: metroNIDAZOLE/NS 500 MG/100 ML PIGGYBACK 100 MG IV ×2 (01:31→13:48)
[2024-09-12] MEDS: vancomycin HCL 1,000 MG in 0.9 % Sodium Chloride 250 ML 270 MG IV (02:33)
[2024-09-12 03:01] VITALS: BP 122/58; PULSE 77; RESP 20; TEMP 37.3; O2SAT 93
[2024-09-12] MEDS: cefEPime HCl/D5W 2 GM/50 ML PIGGYBACK IV ×3 (05:21→20:41)
[2024-09-12 07:41] LABS: Estimated Glomerular Filt Rate > 60
[2024-09-12 07:42] VITALS: BP 175/85; PULSE 95; RESP 20; TEMP 37.6; O2SAT 91
--- NOTE | 2024-09-12 09:07 | P.PNIM_ITS ---
Subjective Subjective Date of Service: 09/12/24 Interval History: Essentially no change overnight. Minimally responsive but hemodynamically stable Review of Systems Unable to obtain Physical Exam 2 Vital Signs: Vital Signs: Last Vital Signs Temp 99.6 F 09/12/24 07:42 Pulse 95 09/12/24 07:42 Resp 20 09/12/24 07:42 BP 175/85 H 09/12/24 07:42 Pulse Ox 91 L 09/12/24 07:42 O2 Del Method Oxymask 09/12/24 07:42 O2 Flow Rate 12 09/12/24 07:42 BMI result Body Mass Index 22.8 Const: Other: Awake nonverbal ill-appearing Resp: Other: Diminished throughout with diffuse coarse rhonchi and scattered crackles Cardio: Other: Distant heart sounds; no S4; positive S1-S2; no S3 murmurs rubs or gallops GI: Other: Soft nontender nondistended normoactive bowel sounds Extrem: Other: No edema bilaterally Objective Data Active Medications Acetaminophen (Acetaminophen 325 Mg Tablet) 650 mg PO Q6H PRN PRN Reason: Pain, Mild 1-3,fever,headache Acetaminophen (Acetaminophen Supp 650 Mg Supp.Rect) 650 mg [place] Q4H PRN PRN Reason: Fever Last Admin: 09/11/24 20:22 Dose: 650 mg Documented By: СВЕТЛАНА Calcium Carbonate (Calcium Carbonate 750 Mg Tab.Chew) 750 mg PO Q4H PRN PRN Reason: Heartburn Enoxaparin Sodium (Enoxaparin Sodium 40 Mg/0.4 Ml Syringe) 40 mg SUBCUT Q24H COUNT INCLUDES [facility] Last Admin: 09/11/24 14:37 Dose: 40 mg Documented By: BIB Metronidazole (Flagyl) 500 mg in 100 mls @ 100 mls/hr IV Q12H COUNT INCLUDES THE [facility] Last Infusion: 09/12/24 02:33 Dose: Infused Documented By: СВЕТЛАНА Cefepime HCl (Maxipime) 2 gm in 50 mls @ 100 mls/hr IV Q8H COUNT INCLUDES THE [facility] Last Infusion: 09/12/24 06:01 Dose: Infused Documented By: СВЕТЛАНА Vancomycin HCl 1,000 mg/ (Sodium Chloride) 270 mls @ 270 mls/hr IV Q12H COUNT INCLUDES THE [facility] Last Infusion: 09/12/24 03:34 Dose: Infused Documented By: HO.ODRISM Dextrose (D5w) 1,000 mls @ 125 mls/hr IVCONT .Q8H COUNT INCLUDES THE [facility] Magnesium Hydroxide (Milk Of Magnesia 30 Ml Oral.Susp) 30 ml PO DAILY PRN PRN Reason: Constipation Melatonin (Melatonin 3 Mg Tablet) 6 mg PO BEDTIME PRN PRN Reason: Insomnia Ondansetron HCl (Ondansetron Hcl 4 Mg/2 Ml Vial) 4 mg IVPUSH Q8H PRN PRN Reason: Nausea and Vomiting Pharmacy Consult (Consult Rx Vancomycin Dosing) 1 each MISCELLANE DAILY PRN PRN Reason: Consult order Sodium Chloride (0.9 % Sodium Chloride Flush 3 Ml Syringe) 3 ml IVFLUSH QSHIFT [facility] Last Admin: 09/12/24 07:14 Dose: Not Given Documented By: WILMA Non-Admin Reason: IV Running Labs 09/11/24 11:03 09/12/24 06:30 Labs: Laboratory Results - last 24 hr 09/11/24 09/12/24 11:03 06:30 MCV 96.8 MCH 30.9 MCHC 31.9 RDW 14.6 Plt Count 265 MPV 11.0 Immature Gran % (Auto) 2.0 H Neut % (Auto) 88.4 H Lymph % (Auto) 5.8 L [place] % (Auto) 3.4 Eos % (Auto) 0.1 Baso % (Auto) 0.3 Lymph # (Auto) 0.9 L [place] # (Auto) 0.5 Eos # (Auto) 0.0 Baso # (Auto) 0.0 Abs Immat Gran (auto) 0.30 H Absolute Neuts (auto) 13.3 H Absolute Nucleated RBC 0.020 H Nucleated RBC % (auto) 0.1 Anion Gap 13 Estim Creat Clear Calc 105.7 98.0 Estimated GFR > 60 > 60 Fasting Glucose 114 H Calcium 8.2 L D Total Bilirubin 0.5 AST 60 H ALT 58 H Alkaline Phosphatase 105 Total Protein 5.1 L Albumin 2.2 L Microbiology Microbiology Results: Microbiology 09/10/24 12:34 Blood Culture - Preliminary Blood - Venous No growth after 24 hours. 09/10/24 12:34 Blood Culture - Preliminary Blood - Venous Prelim: GNR Gram Stain only Assessment and Plan (1) Pulmonary aspiration: Status: Acute (2) Acute hypernatremia: Status: Acute Plan 84-year-old male with pertinent history of Alzheimer's dementia with behavioral disturbances, hypertension, dysphagia who was sent to the emergency department for evaluation of lethargy and fever. Unable to obtain history from the patient. History obtained from ER provider and chart review. Call placed to [facility] who stated patient became agitated earlier today and then became markedly short of breath. In the emergency room evaluation consistent with aspiration pneumonia 1. Aspiration pneumonia -vanco/cefepime/Flagyl (3) -supplemental O2 to maintain sats greater than equal to 92% -DuoNebs q.4 as needed 2. Hypernatremia -3 L negative free water deficit.. -D5W @125 -follow renals/divalents 3. Hypertension -acceptable control off therapies -resume orals when cleared by speech 4. Dementia -as per discussion with fpc staff patient at baseline -resume outpatient therapies when appropriate Full code Lovenox Requires ongoing hospitalization for chronic aspiration pneumonia treatment with IV antibiotics and free water repletion. Message left with guardian regarding code status change Quality Stroke Does the patient have a stroke diagnosis?: No VTE Prior VTE?: No VTE Risk Level:: Medical - moderate - high VTE Device Contraindication: Treatment Not Indicated VTE Drug Contraindication: N/A - Med Ordered
[2024-09-12 09:16] LABS: MRSA Nasal PCR NEGATIVE (Negative); SA Nasal PCR POSITIVE (Negative)
[2024-09-12] MEDS: Dextrose 5 % 1,000 ML 125 ML IVCONT ×2 (09:56→19:29)
[2024-09-12 12:17] LABS: Vancomycin Trough 18.9 mcg/mL (10.0-20.0)
--- NOTE | 2024-09-12 12:37 | HE.PHANOTE ---
re pretty patients level came back this afternoon at 18.9. will decrease dose from 1000 mg Q12H to 750 mg Q12H. next level to be taken 09/13 @1200 to ensure safety vs efficacy
[2024-09-12] MEDS: vancomycin HCL 750 MG in 0.9 % Sodium Chloride 250 ML 265 MG IV (14:56)
[2024-09-12] MEDS: Enoxaparin Sodium 40 MG/0.4 ML SYRINGE SUBCUT (14:58)
[2024-09-12 15:24] VITALS: BP 167/74; PULSE 94; RESP 16; TEMP 38.3; O2SAT 96
[2024-09-12] MEDS: Acetaminophen Supp 650 MG SUPP.RECT PR (15:35)
[2024-09-12 19:36] VITALS: BP 114/60; PULSE 85; RESP 17; TEMP 37.7; O2SAT 92
[2024-09-12 23:13] VITALS: O2SAT 93
[2024-09-13] VITALS (8 sets, daily range): BP systolic 128–149; BP diastolic 62–74; PULSE 75–94; RESP 16–24; TEMP 37.2–37.5; O2SAT 92–98
[2024-09-13] MEDS: metroNIDAZOLE/NS 500 MG/100 ML PIGGYBACK 100 MG IV ×2 (01:25→13:08)
[2024-09-13] MEDS: vancomycin HCL 750 MG in 0.9 % Sodium Chloride 250 ML 265 MG IV (02:39)
[2024-09-13] MEDS: cefEPime HCl/D5W 2 GM/50 ML PIGGYBACK IV ×2 (04:58→12:27)
[2024-09-13] MEDS: Dextrose 5 % 1,000 ML 125 ML IVCONT ×2 (04:59→12:27)
[2024-09-13 07:27] LABS: Alanine Aminotransferase 24 U/L (0-40); Alkaline Phosphatase 88 U/L (39-117); Anion Gap 10 (12-20); Aspartate Amino Transferase 22 U/L (5-37); Bilirubin Total 0.4 mg/dL (0.0-1.0); Blood Urea Nitrogen 13 mg/dL (9-16); Calcium 8.1 mg/dL (8.4-10.2); Carbon Dioxide 22 mmol/L (22-29); Chloride 118 mmol/L (96-108); Creatinine Clr Calc Pharmacy 89.8; Estimated Glomerular Filt Rate > 60; Glucose Fasting 123 mg/dL (60-99); Potassium 2.3 mmol/L (3.3-5.1); Sodium 148 mmol/L (135-145); Total Protein 4.8 g/dL (6.5-8.0)
[2024-09-13] MEDS: Potassium Chloride/H20 10 MEQ/100 ML PIGGYBACK 100 MEQ IV ×5 (07:38→20:37)
[2024-09-13 12:39] LABS: Vancomycin Random 19.5 mcg/mL (15-20)
--- NOTE | 2024-09-13 13:09 | HE.PHANOTE ---
Addendum entered by Lulu Gonzalez cal 09/13/24 13:13: level will be 09/14 @1500. * Original Note: [facility] came back this afternoon at 19.5, up from 18.9 from yesterday. Dose was reduced after level of 18.9 from 1000 Q12H to 750 mg Q12H. With dose decrease and increased level it is suspected the patient is not tolerating Q12H dosing. Will change to Q24H dosing however patient is older with lower BMI thus making dosing difficult. [employer] suggested 1500 mg Q24H however this dosing is almost 26 mg/kg, will go with 1250 mg Q24H at about 21.5 mg/kg. Will get a level tomorrow 09/14 @1300 to ensure safety and efficacy. Dose has also been pushed out from 1400 to 1700.
--- NOTE | 2024-09-13 13:22 | MHC.CLN ---
CONSULT FOR PPN PT IS 97% IBW INDICATES ADEQUATE WT FOR HT PT IS DAY 3 NPO REVIEWED LABS DISCUSSED WITH PHARMACY RECOMMEND PPN AT 60ML/HR TO PROVIDE 734KCALS, 144G DEXTROSE, 61G PROTEIN REPLETE LYTES NEEDED CHECK TRIGS PPN TO START TOMORROW 09/14/24 PER PHARMACY
--- NOTE | 2024-09-13 13:54 | P.PNIM_ITS ---
Subjective Subjective Date of Service: 09/13/24 Interval History: No acute events overnight Pt minimally responsive, arousable to verbal stimuli Not following commands or speaking Continues to be NPO due to chronic aspiration Still unable to contact guardian Hypernatremia improved 156-->148 Hypokalemic at 2.3, albumin 2.0 Pt required nasal deep suctioning x2 overnight Review of Systems Review of Systems: Yes Unobtainable due to mental status Physical Exam 2 Vital Signs: Vital Signs: Last Vital Signs Temp 98.9 F 09/13/24 07:02 Pulse 78 09/13/24 07:02 Resp 16 09/13/24 07:02 BP 143/67 H 09/13/24 07:02 Pulse Ox 98 09/13/24 07:02 O2 Del Method Oxymask 09/13/24 07:02 O2 Flow Rate 12 09/13/24 07:02 BMI result Body Mass Index 22.8 General: Somnolent but arousable to verbal stimuli, frail, cachectic Resp: Diffuse expiratory rhonchi CVS: S1, S2, RRR GI: +BS, NT, no distention Skin: Warm, dry Neuro: Pt opens eyes but otherwise minimal movement, not following commands Extremities: No edema Objective Data Active Medications Acetaminophen (Acetaminophen 325 Mg Tablet) 650 mg PO Q6H PRN PRN Reason: Pain, Mild 1-3,fever,headache Acetaminophen (Acetaminophen Supp 650 Mg Supp.Rect) 650 mg [place] Q4H PRN PRN Reason: Fever Last Admin: 09/12/24 15:35 Dose: 650 mg Documented By: WILMA Calcium Carbonate (Calcium Carbonate 750 Mg Tab.Chew) 750 mg PO Q4H PRN PRN Reason: Heartburn Enoxaparin Sodium (Enoxaparin Sodium 40 Mg/0.4 Ml Syringe) 40 mg SUBCUT Q24H [facility] Last Admin: 09/12/24 14:58 Dose: 40 mg Documented By: WILMA Metronidazole (Flagyl) 500 mg in 100 mls @ 100 mls/hr IV Q12H [facility] Last Admin: 09/13/24 13:08 Dose: 100 mls/hr Documented By: WILMA Cefepime HCl (Maxipime) 2 gm in 50 mls @ 100 mls/hr IV Q8H [facility] Last Infusion: 09/13/24 13:08 Dose: Infused Documented By: WILMA Vancomycin HCl 1,250 mg/ (Sodium Chloride) 250 mls @ 166.667 mls/hr IV Q24H [facility] Dextrose/Sodium Chloride (D51/2ns) 1,000 mls @ 80 mls/hr IVCONT .[id number] [facility] Magnesium Hydroxide (Milk Of Magnesia 30 Ml Oral.Susp) 30 ml PO DAILY PRN PRN Reason: Constipation Melatonin (Melatonin 3 Mg Tablet) 6 mg PO BEDTIME PRN PRN Reason: Insomnia Ondansetron HCl (Ondansetron Hcl 4 Mg/2 Ml Vial) 4 mg IVPUSH Q8H PRN PRN Reason: Nausea and Vomiting Pharmacy Consult (Consult Rx Vancomycin Dosing) 1 each MISCELLANE DAILY PRN PRN Reason: Consult order Pharmacy Consult (Consult Rx Parenteral Nutrition Ordering) 1 each MISCELLANE DAILY PRN PRN Reason: Consult order Sodium Chloride (0.9 % Sodium Chloride Flush 3 Ml Syringe) 3 ml IVFLUSH QSHIFT [facility] Last Admin: 09/13/24 07:14 Dose: Not Given Documented By: WILMA Non-Admin Reason: IV Running Labs 09/11/24 11:03 09/13/24 06:06 Labs: Laboratory Results - last 24 hr 09/13/24 09/13/24 06:06 12:03 Hold Purple Top SEE NOTE Anion Gap 10 L Estim Creat Clear Calc 89.8 Estimated GFR > 60 Fasting Glucose 123 H Calcium 8.1 L Total Bilirubin 0.4 AST 22 ALT 24 Alkaline Phosphatase 88 Total Protein 4.8 L Albumin 2.0 L Random Vancomycin 19.5 Microbiology Microbiology Results: Microbiology 09/10/24 12:34 Blood Culture - Preliminary Blood - Venous Klebsiella pneumoniae 09/10/24 12:34 Blood Culture - Preliminary Blood - Venous No growth after 48 hours. Assessment and Plan (1) Acute hypernatremia: Status: Acute Assessment and Plan: 84-year-old male with pertinent history of Alzheimer's dementia with behavioral disturbances, hypertension, dysphagia who was sent to the emergency department for evaluation of lethargy and fever. Unable to obtain history from the patient. History obtained from ER provider and chart review. Call placed to [facility] who stated patient became agitated earlier today and then became markedly short of breath. In the emergency room evaluation consistent with aspiration pneumonia Acute hypoxic respiratory failure in the setting recurrent aspiration pneumonia Initially on vanco/cefepime/Flagyl (4) MRSA negative, will dc vanco Will treat with meropenem based on urine and blood sensitivities Supplemental O2 to maintain sats greater than equal to 92%, currently on 12 L OxyMask DuoNebs q.4 as needed Acute UTI with bacteremia UA positive for Klebsiella oxytoca 1/2 blood cultures positive for Klebsiella pneumoniae Will treat with meropenem based on sensitivities, started 09/13/2024 ID consult Hypernatremia Sodium as high as 158, currently 148 after D5W@125 Will switch to D5 1/2NS Follow labs Acute hypokalemia Potassium 2.3 Will supplement with 40 mEq potassium IV Follow up potassium closely Nutrition Pt initially tolerating pureed diet with nectar thick liquids Continued aspiration, requiring deep nasal suctioning x2 overnight Pt continues to be NPO We will give peripheral parenteral nutrition for now Hypertension Acceptable control off therapies Resume orals when cleared by speech Dementia Pt appears more somnolent than baseline Resume outpatient therapies when appropriate Full code Lovenox Requires ongoing hospitalization for chronic aspiration pneumonia treatment with IV antibiotics and electrolyte abnormalities with free water repletion. Message left with guardian regarding code status change. (2) Aspiration pneumonia: Status: Acute Quality Stroke Does the patient have a stroke diagnosis?: No VTE Prior VTE?: No VTE Risk Level:: Medical - moderate - high VTE Device Contraindication: Treatment Not Indicated VTE Drug Contraindication: N/A - Med Ordered
[2024-09-13] MEDS: Dextrose 5 % and 0.45 % NaCl 1,000 ML 80 ML IVCONT (14:05)
[2024-09-13 14:13] LABS: Magnesium 1.7 mg/dL (1.6-2.6)
[2024-09-13] MEDS: Meropenem 1 GM VIAL IVPUSH (14:43)
[2024-09-13] MEDS: Enoxaparin Sodium 40 MG/0.4 ML SYRINGE SUBCUT (14:43)
--- NOTE | 2024-09-13 15:26 | PC.NURSE ---
Plan to send patient upstairs on High Flow, Charge and Clin sup notified. Plan transfer
[2024-09-13 15:37] LABS: Anion Gap 13 (12-20); Blood Urea Nitrogen 14 mg/dL (9-16); Calcium 7.6 mg/dL (8.4-10.2); Carbon Dioxide 18 mmol/L (22-29); Chloride 117 mmol/L (96-108); Creatinine Clr Calc Pharmacy 99.8; Estimated Glomerular Filt Rate > 60; Glucose Random 110 mg/dL (60-115); Potassium 3.2 mmol/L (3.3-5.1); Sodium 145 mmol/L (135-145)
[2024-09-13] MEDS: 0.9 % Sodium Chloride Flush 3 ML SYRINGE IVFLUSH (20:44)
--- NOTE | 2024-09-13 22:42 | PM.EVENT ---
Event Note Date of Service: 09/14/24 Event Note: Pt seen/examined independently and plan of care discussed with PA and I agree with plan as outline in progress Time Spent With Patient Time: Total time managing care of this patient today ____ minutes.
[2024-09-14] VITALS (12 sets, daily range): BP systolic 126–168; BP diastolic 60–84; PULSE 72–133; RESP 16–22; TEMP 36.2–37.6; O2SAT 87–100; BMI 22.8
[2024-09-14] MEDS: Meropenem 1 GM VIAL IVPUSH ×4 (00:22→22:27)
[2024-09-14] MEDS: Dextrose 5 % and 0.45 % NaCl 1,000 ML 80 ML IVCONT ×2 (02:13→14:55)
[2024-09-14 08:29] LABS: ABG Base Excess 1.4 mmol/L; ABG HCO3 23 mmol/L (22-26); ABG pCO2 28 mmHg (32-45); ABG pH 7.52 (7.35-7.45); ABG pO2 42 mmHg (83-108)
[2024-09-14] MEDS: 0.9 % Sodium Chloride Flush 3 ML SYRINGE IVFLUSH ×2 (10:25→17:31)
[2024-09-14 10:48] LABS: Blood Urea Nitrogen 16 mg/dL (9-16); Creatinine Clr Calc Pharmacy 105.7; Estimated Glomerular Filt Rate > 60; Glucose Random 97 mg/dL (60-115); Magnesium 1.5 mg/dL (1.6-2.6); Phosphorus 2.1 mg/dL (2.7-4.5); Triglycerides 51 mg/dL (<150)
[2024-09-14 10:58] LABS: Anion Gap 12 (12-20); Calcium 6.6 mg/dL (8.4-10.2); Carbon Dioxide 18 mmol/L (22-29); Chloride 119 mmol/L (96-108); Potassium 3.9 mmol/L (3.3-5.1); Sodium 145 mmol/L (135-145)
--- NOTE | 2024-09-14 11:57 | HO.PM.IMPN ---
Subjective Subjective Date of Service: 09/14/24 Interval History: Pt completely obtunded, no longer responsive to verbal or painful stimuli Pt moved to telemetry yesterday, placed on high-flow and with OxyMask as well due to oral ventilation Labs significant for hypophosphatemia of 2.1, hypocalcemia of 6.6, albumin 1.0 ABG with pH 7.52, pCO2 28, PO2 42, and bicarb 23 PPN started today, will also supplement with K-Phos and 2 g calcium IV Spoke to patient's guardian today and still unable to change code status as case has yet to be heard in the cords Pt continues to be full code Review of Systems Review of Systems: Yes Unobtainable due to mental status Physical Exam Vital Signs: Vital Signs: Last Vital Signs Temp 99.6 F 09/14/24 03:34 Pulse 76 09/14/24 08:00 Resp 20 09/14/24 11:21 BP 168/78 H 09/14/24 08:00 Pulse Ox 95 09/14/24 08:00 O2 Del Method High Flow Nasal C annula 09/14/24 08:00 O2 Flow Rate 50 09/14/24 08:00 FiO2 50 09/14/24 08:00 BMI result Body Mass Index 22.8 General: Pt obtunded, nonresponsive to verbal or painful stimuli. Frail, cachectic Resp: Diffuse expiratory CVS: S1, S2, RRR GI: +BS, NT, no distention Skin: Warm, dry Neuro: Pt obtunded, not following commands Extremities: No edema. Right leg chronically contracted. Objective Data Active Medications Acetaminophen (Acetaminophen 325 Mg Tablet) 650 mg PO Q6H PRN PRN Reason: Pain, Mild 1-3,fever,headache Acetaminophen (Acetaminophen Supp 650 Mg Supp.Rect) 650 mg [place] Q4H PRN PRN Reason: Fever Last Admin: 09/12/24 15:35 Dose: 650 mg Documented By: WILMA Calcium Carbonate (Calcium Carbonate 750 Mg Tab.Chew) 750 mg PO Q4H PRN PRN Reason: Heartburn Enoxaparin Sodium (Enoxaparin Sodium 40 Mg/0.4 Ml Syringe) 40 mg SUBCUT Q24H [facility] Last Admin: 09/13/24 14:43 Dose: 40 mg Documented By: WILMA Dextrose/Sodium Chloride (D51/2ns) 1,000 mls @ 80 mls/hr IVCONT .[id number] [facility] Last Admin: 09/14/24 02:13 Dose: 80 mls/hr Documented By: CARLOTTA Calcium Gluconate (Calcium Gluconate) 2 gm in 100 mls @ 50 mls/hr IV ONCE ONE Stop: 09/14/24 13:59 Potassium Phosphate (Kphos) 15 mmol in 250 mls @ 62.5 mls/hr IV ONCE ONE Stop: 09/14/24 16:59 Nutrition (Parenteral) (Parenteral Nutrition) 1,440 mls @ 60 mls/hr IV .Q24H [facility]; Protocol Stop: 09/15/24 20:59 Magnesium Hydroxide (Milk Of Magnesia 30 Ml Oral.Susp) 30 ml PO DAILY PRN PRN Reason: Constipation Melatonin (Melatonin 3 Mg Tablet) 6 mg PO BEDTIME PRN PRN Reason: Insomnia Meropenem (Meropenem 1 Gm Vial) 1 gm IVPUSH Q8H [facility] Last Admin: 09/14/24 06:10 Dose: 1 gm Documented By: CARLOTTA Ondansetron HCl (Ondansetron Hcl 4 Mg/2 Ml Vial) 4 mg IVPUSH Q8H PRN PRN Reason: Nausea and Vomiting Pharmacy Consult (Consult Rx Parenteral Nutrition Ordering) 1 each MISCELLANE DAILY PRN PRN Reason: Consult order Sodium Chloride (0.9 % Sodium Chloride Flush 3 Ml Syringe) 3 ml IVFLUSH QSHIFT [facility] Last Admin: 09/14/24 10:25 Dose: 3 ml Documented By: KATARINA Labs 09/11/24 11:03 09/14/24 10:05 Labs: Laboratory Results - last 24 hr 09/13/24 09/13/24 09/13/24 06:06 12:03 15:08 O2 Saturation ABG pH at Pt Temp ABG pCO2 at Pt Temp ABG pO2 at Pt Temp ABG HCO3 ABG Base Excess (Actual) Anion Gap 13 Estim Creat Clear Calc 99.8 Estimated GFR > 60 Random Glucose 110 Calcium 7.6 L D Phosphorus Magnesium 1.7 Albumin Triglycerides Random Vancomycin 19.5 09/14/24 09/14/24 08:25 10:05 O2 Saturation 76.0 ABG pH at Pt Temp 7.52 H ABG pCO2 at Pt Temp 28 L ABG pO2 at Pt Temp 42 L* ABG HCO3 23 ABG Base Excess (Actual) 1.4 Anion Gap 12 Estim Creat Clear Calc 105.7 Estimated GFR > 60 Random Glucose 97 Calcium 6.6 L D Phosphorus 2.1 L Magnesium 1.5 L Albumin 1.0 L Triglycerides 51 Random Vancomycin Microbiology Microbiology Results: Microbiology 09/10/24 12:34 Blood Culture - Final Blood - Venous Klebsiella pneumoniae Assessment and Plan (1) Aspiration pneumonia: Status: Acute Plan 84-year-old male with pertinent history of Alzheimer's dementia with behavioral disturbances, hypertension, dysphagia who was sent to the emergency department for evaluation of lethargy and fever. Unable to obtain history from the patient. History obtained from ER provider and chart review. Call placed to [facility] who stated patient became agitated earlier today and then became markedly short of breath. In the emergency room evaluation consistent with aspiration pneumonia Acute hypoxic respiratory failure in the setting recurrent aspiration pneumonia Initially on vanco/cefepime/Flagyl x4 days MRSA negative, vanco dc'd ABX switched to meropenem based on urine and blood sensitivities, day 2 Supplemental O2 to maintain sats greater than equal to 92%, currently on high-flow and OxyMask DuoNebs q.4 as needed Repeat ABG better, will hold on ICU eval for now Acute UTI with bacteremia UA positive for Klebsiella oxytoca 1/2 blood cultures positive for Klebsiella pneumoniae Will treat with meropenem based on sensitivities, started day 2 ID consult Hypernatremia, resolved Sodium as high as 158, currently 145 after D5W@125 Continue D5 1/2NS Follow labs Acute hypokalemia, resolved Potassium as low as 2.3 Will supplement with 40 mEq potassium IV Follow up potassium closely Hypocalcemia Calcium 6.6, will treat with calcium gluconate 2 g IV Follow labs Hypophosphatemia Phosphorus 2.1 Will supplement with K-Phos Follow labs Nutrition Pt initially tolerating pureed diet with nectar thick liquids Continued aspiration, requiring deep nasal suctioning Pt obtunded and NPO We will give peripheral parenteral nutrition for now Consider obtaining consent from guardian for PICC line and TPN Hypertension Acceptable control off therapies Resume orals when cleared by speech Dementia Pt appears more somnolent than baseline Resume outpatient therapies when appropriate Code Status Pt with guardian Spoke with guardian on 5/26, pt continues to be full code pending court hearing in the next 1-2 weeks Pt obtunded, declining, appears to be actively dying Consider invoking two-physician to make pt [facility] Full code Jac Requires ongoing hospitalization for chronic aspiration pneumonia treatment with IV antibiotics and electrolyte abnormalities with free water repletion. Quality Stroke Does the patient have a stroke diagnosis?: No VTE Prior VTE?: No VTE Risk Level:: Medical - moderate - high VTE Device Contraindication: Treatment Not Indicated VTE Drug Contraindication: N/A - Med Ordered
[2024-09-14 12:37] LABS: ABG Base Excess 0.5 mmol/L; ABG HCO3 23 mmol/L (22-26); ABG pCO2 30 mmHg (32-45); ABG pH 7.49 (7.35-7.45); ABG pO2 70 mmHg (83-108)
[2024-09-14] MEDS: Calcium Gluconate/NaCl,Iso-Osm 2 GM/100 ML PLAST..BAG IV (13:50)
[2024-09-14] MEDS: Potassium Phosphate/NS 15 MMOL/250 ML PLAST..BAG 62.5 MMOL IV (14:05)
--- NOTE | 2024-09-14 15:50 | MHC.CLN ---
F/U TODAY IS DAY 6 NPO. HX ASPIRATION PNEUMONIA. STARTING PPN TODAY. REVIEWED LABS. COMMUNICATED WITH PHARMACY. START PPN AT 60 ML PER HOUR TO PROVIDE 734 KCALS, 144 G DEXTROSE, 61 G PROTEIN. REPLETE LYTES NEEDED. MONITOR FOR REFEEDING. [ End ]
[2024-09-14] MEDS: Enoxaparin Sodium 40 MG/0.4 ML SYRINGE SUBCUT (17:31)
[2024-09-14] MEDS: Albumin Human 25 % 100 ML IV (18:40)
--- NOTE | 2024-09-14 18:50 | PC.NURSE ---
this nurse noticed patient third-spacing likely d/t large quantitiy of medications involving iv fluids, upper extremity edema noted. lungs- clear, di. md mcgowan ntified. 2 bags albumin ordereded. this nurse paused d5 in 0.45 fluid admin.
[2024-09-14] MEDS: Parenteral Nutrition 1,440 ML 60 ML IV (21:48)
--- NOTE | 2024-09-14 22:55 | PC.NURSE ---
assumed care of patient for admission from the ED @ 2044. Patient alert to self. Unable to answer admission questions and talking in garbled speech. Patient HR elevated 140-170's, asymptomatic. Presented with Afib RVR in Ed. Dr. Troncoso administered new orders, carried out by the RN. Stat EKG to confirm rhythm and stat medications. See MAR for administration details. All other vitals stable. Patient wheel chair bound at baseline. No pain reported. Fluids running through iv in right wrist. No pressure injuries upon admission. Meds crushed in applesauce. Patient high falls risk, bed in lowest position, call palmer in place rounding for safety.
--- NOTE | 2024-09-14 23:54 | PC.NURSE ---
Addendum entered by Roxy Guerra RN 09/15/24 07:09: Shortly after assuming care, IVs assessed and RUE IV with PPN infusing was found to be infiltrated with weeping edema and redness to upper arm above IV site. +radial pulses bilaterally. Continues with 1-2+ pitting edema to LUE, bilateral hands and feet. Heel offloading boots in place. PPN was immediately paused on this finding; continued with D5/0.45% NS and albumin via single remaining left arm IV while PPN was paused. Skin tear was also noted beneath the left IV J-loop. information technology associate notified and attempted U/S IV though sites appeared limited. DIRECTOR OF OPTIMIZATION notified and to bedside, was able to obtain additional #22 U/S IVs to LUE and left forearm. DSDs w/ xeroform placed beneath J-loops and arms kerlix wrapped for skin protection/skin tears/moisture control given weeping edema and fragility. On assessment, patient was obtunded, only responsive to pain as evidenced by moaning and grimacing, particularly with repositioning and moving right leg. pupils round, reactive, with conjugate gaze on assessments. Covering Dr. Aba Oviedo was notified about IV and mentation and requested to bedside. MD presented to bedside with MD verbal okay during this time to discontinue IV fluids with plan to continue PPN. VBG ordered for this morning as well as scheduled IV tylenol as patient is unable to verbalize though responds to pain. 04:00 hour: HFNC weaned by RT to 50L/60%, oxymask removed. Spo2 maintained >95%. Breathing remains even and unlabored without distress. Aspiration precautions, safety measures , and in-room camera continue. Please see shift assessment, tasks in worklist, and MAR for full details. Handoff report given to oncoming RN at 06:45. Original Note: Patient Accounts Manager assumed care of this patient at 23:30. RT at bedside approx 23:50, adjusted HFNC 50L/75% with oxymask overlaying decreased to 5L. Spo2 100%. Breathing even and unlabored without distress.
[2024-09-15] VITALS (13 sets, daily range): BP systolic 120–142; BP diastolic 59–88; PULSE 57–105; RESP 16–22; TEMP 36.2–37; O2SAT 91–100
[2024-09-15] MEDS: 0.9 % Sodium Chloride Flush 3 ML SYRINGE IVFLUSH (00:57)
[2024-09-15] MEDS: Albumin Human 25 % 100 ML IV (01:01)
[2024-09-15] MEDS: Acetaminophen 1,000 MG/100 ML PIGGYBACK 400 MG IV ×3 (03:05→21:10)
[2024-09-15] MEDS: Meropenem 1 GM VIAL IVPUSH ×2 (06:01→17:00)
[2024-09-15 07:58] LABS: VBG Base Excess 5.1 mmol/L; VBG HCO3 27 mmol/L (22-26); VBG pCO2 33 mmHg; VBG pH 7.52 (7.32-7.43); VBG pO2 110 mmHg
[2024-09-15 08:43] LABS: Albumin Level 2.3 g/dL (3.5-5.0); Anion Gap 10 (12-20); Blood Urea Nitrogen 15 mg/dL (9-16); Calcium 8.3 mg/dL (8.4-10.2); Carbon Dioxide 23 mmol/L (22-29); Chloride 114 mmol/L (96-108); Creatinine Clr Calc Pharmacy 125.3; Estimated Glomerular Filt Rate > 60; Glucose Random 124 mg/dL (60-115); Phosphorus 1.8 mg/dL (2.7-4.5); Potassium 2.8 mmol/L (3.3-5.1); Sodium 144 mmol/L (135-145)
[2024-09-15] MEDS: Potassium Chloride/H20 10 MEQ/100 ML PIGGYBACK 100 MEQ IV ×4 (09:08→15:02)
[2024-09-15 09:37] LABS: Procalcitonin 0.56 ng/mL
[2024-09-15 10:43] LABS: Venous Blood Gas Refer to POC result
--- NOTE | 2024-09-15 11:24 | MHC.CLN ---
F/U PT REMAINS NPO REVIEWED LABS; TRIGS 51 DISCUSSED WITH PHARMACY RECOMMEND INCREASING PPN TO MAX GOAL RATE OF 80ML/HR WITH 73G LIPIDS TO PROVIDE 1709KCALS (25KCALS/KG), 192G DEXTROSE, 82G PROTEIN (1.2G/KG) REPLETE LYTES NEEDED FOLLOWING WITH TEAM
--- NOTE | 2024-09-15 12:15 | HO.WOUND ---
Wound Consult: Initial 84yr old male admitted to [facility] [place] on 09/10/24- See progress notes and H&P for detailed history.? Patient has had several admissions prior to this including an extended stay with in the hospital awaiting placement. Wound consult placed for Sacrum , Right Ankle, foot and Right Arm. Patient had minimal interaction with his environment. Of note this patient is known to this commercial insurance underwriter from previous admission - he appears to clinically decline. Goals of Care discussions have begun per direct care nurse. Sacrum Etiology: ??DTI Present on Admission Wound Bed: Purple red nonblanchable intact tissue Drainage / Odor: None Edges: ? irregular Calli wound: red pink intact dry tissue ? No Induration, Fluctuance or Warmth noted Goals of Treatment: ? off load pressure Left Hip Etiology: Stage 1Present on Admission Wound Bed: intact red pink nonblanchable tissue Drainage / Odor: None Edges: ? irregular Calli wound: intact No Induration, Fluctuance or Warmth noted Goals of Treatment: ? off load pressure Right Ankle and foot Etiology: ?DTI ?Present on Admission Wound Bed: Purple red nonblanchable with epidermal lifting Drainage / Odor: rocha red dried on dressing Edges: ? irregular Calli wound: red intact dry tissue ? No Induration, Fluctuance or Warmth noted Goals of Treatment: ? off load pressure foam dressing for moist wound healing Right Heel Etiology: Stage 1 Pressure injury ?Present on Admission Wound Bed: red pink intact slow to blanchable intact tissue Drainage / Odor: None Edges: ? irregular Calli wound: intact dry tissue ? No Induration, Fluctuance or Warmth noted Goals of Treatment: ? off load pressure Left heel Etiology: Stage 1 Pressure injury ?Present on Admission Wound Bed: red pink intact slow to blanchable intact tissue Drainage / Odor: None Edges: ? irregular Calli wound: intact dry tissue ? No Induration, Fluctuance or Warmth noted Goals of Treatment: ? off load pressure Recommendations: 1. Turn and Reposition every 2 hours and as needed for patient comfort.? Use pillows or wedges to support off loading positions. 2. Off Load all bony prominences with use of pillows and heel boots if needed.? Apply Preventative foams where needed. ? 3. Monitor for incontinence and moisture control, use barrier creams when needed for prevention and treatment. 4. Provide adequate and supplemental nutrition.? 5. Continue low air loss mattress. 6. When applicable maintain blood glucose levels per Providers order. Sacrum - Off Load Pressure with Q2 hr turns and use of pillows - ?Apply skin prep allow to dry. Apply foam dressing to aid in off loading and protection from friction. Change every 3 days and PRN. Right Ankle, foot, Left hip and Bilateral Heels - Apply skin prep allow to dry - Apply heel foam dressing, elevate off of bed surface in heel boot protectors. Peel back foam Qshift and change every 5 days and PRN. Bilateral Arm skin tear - Cleanse with normal saline, pat dry. ?Apply Xeroform secure with Abd pads, gauze wrap and tape. Change Daily. ?Do not apply tape to patient?s skin.? Avoid Adhesive application to skin - when necessary, apply skin prep prior.? Re-consult wound care Nurse for wound deterioration or wound changes.
[2024-09-15] MEDS: Potassium Phosphate/NS 15 MMOL/250 ML PLAST..BAG 62.5 MMOL IV ×2 (12:48→21:29)
[2024-09-15] MEDS: Acetaminophen 1,000 MG/100 ML PIGGYBACK 100 MG IV (16:50)
[2024-09-15] MEDS: Enoxaparin Sodium 40 MG/0.4 ML SYRINGE SUBCUT (16:54)
--- NOTE | 2024-09-15 17:20 | P.PNIM_ITS ---
Subjective Subjective Date of Service: 09/15/24 Interval History: somnolent, not taking POs, not verbal on HFNC 50% fiO2, 50 Lpm Review of Systems Review of Systems: Yes Unobtainable due to mental status Physical Exam 2 Vital Signs: Vital Signs: Last Vital Signs Temp 97.1 F 09/15/24 15:41 Pulse 105 H 09/15/24 15:41 Resp 20 09/15/24 16:02 BP 131/88 09/15/24 15:41 Pulse Ox 97 09/15/24 15:41 O2 Del Method High Flow Nasal C annula 09/15/24 15:41 O2 Flow Rate 50 09/15/24 15:41 FiO2 50 09/15/24 15:41 BMI result Body Mass Index 22.8 Gen: ill-appearing, cachectic HEENT: sclera anicteric, moist mucus membranes Neck: supple Lungs: diminished Heart: regular rate and rhythm, no murmurs Abd: soft, non-tender, non-distended Ext: no edema Skin: warm/well-perfused Neuro: somnolent, minimally arousable, not following commands Psych: impaired insight Objective Data Active Medications Calcium Carbonate (Calcium Carbonate 750 Mg Tab.Chew) 750 mg PO Q4H PRN PRN Reason: Heartburn Enoxaparin Sodium (Enoxaparin Sodium 40 Mg/0.4 Ml Syringe) 40 mg SUBCUT Q24H [facility] Last Admin: 09/15/24 16:54 Dose: 40 mg Documented By: ANSON Nutrition (Parenteral) (Parenteral Nutrition) 1,440 mls @ 60 mls/hr IV .Q24H JUAN PABLO; Protocol Stop: 09/15/24 20:59 Last Infusion: 09/15/24 02:38 Dose: 60 mls/hr Documented By: SIMONA Acetaminophen (Ofirmev) 1,000 mg in 100 mls @ 400 mls/hr IV Q6H JUAN PABLO Last Admin: 09/15/24 16:50 Dose: 100 mls/hr Documented By: ANSON Nutrition (Parenteral) (Parenteral Nutrition) 1,920 mls @ 80 mls/hr IV .Q24H JUAN PABLO; Protocol Stop: 09/16/24 20:59 Potassium Phosphate (Kphos) 15 mmol in 250 mls @ 62.5 mls/hr IV Q4H JUAN PABLO Stop: 09/15/24 19:44 Last Admin: 09/15/24 12:48 Dose: 62.5 mls/hr Documented By: ANSON Magnesium Hydroxide (Milk Of Magnesia 30 Ml Oral.Susp) 30 ml PO DAILY PRN PRN Reason: Constipation Melatonin (Melatonin 3 Mg Tablet) 6 mg PO BEDTIME PRN PRN Reason: Insomnia Meropenem (Meropenem 1 Gm Vial) 1 gm IVPUSH Q8H [facility] Last Admin: 09/15/24 06:01 Dose: 1 gm Documented By: SIMONA Ondansetron HCl (Ondansetron Hcl 4 Mg/2 Ml Vial) 4 mg IVPUSH Q8H PRN PRN Reason: Nausea and Vomiting Pharmacy Consult (Consult Rx Parenteral Nutrition Ordering) 1 each MISCELLANE DAILY PRN PRN Reason: Consult order Sodium Chloride (0.9 % Sodium Chloride Flush 3 Ml Syringe) 3 ml IVFLUSH QSHIFT [facility] Last Admin: 09/15/24 09:20 Dose: Not Given Documented By: ROSARIO Non-Admin Reason: IV Running Labs 09/11/24 11:03 09/15/24 07:35 Labs: Laboratory Results - last 24 hr 09/15/24 09/15/24 07:35 07:51 Hold Purple Top SEE NOTE VBG pH 7.52 H VBG pCO2 33 VBG pO2 110 VBG HCO3 27 H VBG O2 Saturation 99.0 VBG Base Excess 5.1 Anion Gap 10 L Estim Creat Clear Calc 125.3 Estimated GFR > 60 Random Glucose 124 H Calcium 8.3 L D Phosphorus 1.8 L Magnesium 2.0 Albumin 2.3 L Procalcitonin 0.56 Microbiology Microbiology Results: Microbiology 09/10/24 12:34 Blood Culture - Final Blood - Venous No growth after 5 days. Assessment and Plan (1) Aspiration pneumonia: Status: Acute Plan d6 for 84yo M with advanced Alzheimer's dementia, HTN, and dysphagia sent in for fever and lethargy from Rehab where he is a long-term care resident, admitted for hypoxia due to recurrent aspiration PNA acute hypoxic respiratory failure due to recurrent aspiration PNA Klebsiella pneumoniae bacteremia - 09/10-09/13 vanco + cefepime + metronidaozle; MRSA swab negative; switched to meropenem 09/14- - continue HFNC; wean as tolerated hypoK hypoPO4 - replete IV; recheck levels tomorrow hyperNa - resolved after free water repletion severe protein-calorie malnutrition - currently on PPN goals of care - LEN Sanchez spoke with guardian on 09/14, pt continues to be full code pending court hearing in the next 1-2 weeks - will re-consult Pulmonology regarding prognosis and consideration may be given to invoking 2-physician consent to transition pt to HEEL SEAT FITTER MACHINE status but for now remains FULL CODE VTE ppx - enoxaparin dispo - TBD In my clinical judgment, the patient requires continued inpatient hospitalization for the following reasons: IV ABX, hypoxia, PPN Total time managing care of this patient today: 55 minutes. Quality Stroke Does the patient have a stroke diagnosis?: No VTE Prior VTE?: No VTE Risk Level:: Medical - moderate - high VTE Device Contraindication: Treatment Not Indicated VTE Drug Contraindication: N/A - Med Ordered
--- NOTE | 2024-09-15 19:59 | P.PNPL_ITS ---
Subjective Subjective Date of Service: 09/15/24 Interval history: The patient was seen and examined. The patient has advanced dementia. Has had worsening hypoxia and altered mental status. Currently on high flow. Bloodgas with evidence of hyperventilating due to hypoxia. Has been on treatment for klebsiella bacteremia and CT chest which was personally reviewed by me, is demonstrating cavitary pneumonia likely from hematogenous spread of bacterial infection. The patient also had episode of aspiration. The patient is currently NPO and is on intravenous parentral nutrition. Objective Data Labs 09/11/24 11:03 09/15/24 07:35 Labs: Laboratory Results - last 24 hr 09/15/24 09/15/24 07:35 07:51 Hold Purple Top SEE NOTE VBG pH 7.52 H VBG pCO2 33 VBG pO2 110 VBG HCO3 27 H VBG O2 Saturation 99.0 VBG Base Excess 5.1 Sodium 144 Potassium 2.8 L* D Chloride 114 H Carbon Dioxide 23 Anion Gap 10 L BUN 15 Creatinine 0.43 L Estim Creat Clear Calc 125.3 Estimated GFR > 60 Random Glucose 124 H Calcium 8.3 L D Phosphorus 1.8 L Magnesium 2.0 Albumin 2.3 L Procalcitonin 0.56 Microbiology Microbiology Results: Microbiology 09/10/24 12:34 Blood - Venous Blood Culture - Final No growth after 5 days. 09/10/24 12:34 Blood - Venous Blood Culture - Final Klebsiella pneumoniae Review of Systems Review of Systems Yes Unobtainable due to mental condition and Unobtainable due to mental status Physical Exam 2 Vital Signs: Vital Signs: Last Vital Signs Temp 98.6 F 09/15/24 17:20 Pulse 98 09/15/24 17:20 Resp 18 09/15/24 17:20 BP 131/88 09/15/24 15:41 Pulse Ox 97 09/15/24 15:41 O2 Del Method High Flow Nasal C annula 09/15/24 15:41 O2 Flow Rate 50 09/15/24 15:41 FiO2 50 09/15/24 15:41 BMI result Body Mass Index 22.8 Const: General: ill appearing and patient obtunded; No awake or acute distress Nutritional Appearance: Edematous Orientation/consciousness: patient obtunded HEENT: Head: Yes normocephalic Neck: Neck: Yes supple Chest: Chest palpation & inspection: normal inspection of the chest Resp: Effort & Inspection: normal respiratory effort Auscultation: d iminished lung sounds Cardio: Heart sounds: S1 normal heart sound present and S2 normal heart sound present GI: Palpation (GI): Soft to palpation Neuro: General: patient obtunded Comatose Patient: corneal reflex present and response to noxious stimuli present Procedures Date of Service Date of Service: 09/15/24 Assessment and Plan Assessment and plan (1) Cavitary pneumonia: Status: Acute (2) Aspiration pneumonia: Status: Acute (3) Acute respiratory failure with hypoxemia: Status: Acute (4) Dementia with behavioral disturbance: Status: Acute (5) Metabolic encephalopathy: Status: Acute Plan continue abx coverage for likely hemotagenous pneumonia Keep NPO with high risk of aspiration, PPN continue HF. Not a candidate for non invasive ventilation based on inability to protect airway and alt mental status. consider ECHO Goals of care. The patient carries a poor prognosis with advanced dementia and comorbidities. The patient has a guardian based on his dementia. The patient is currently a full code. Based on his current condition, it is very likely that if the patient is intubated for worsening respiratory failure, he would unlikely be able to be liberated from a ventilator. Would recommend changing code status to DNR based on his poor quality of like and poor prognosis. Further discussions with his guardian is warranted. Time Spent With Patient Time: Total time managing care of this patient today ____ minutes. Progress Note: Quality Stroke Does the patient have a stroke diagnosis?: No
[2024-09-15] MEDS: Parenteral Nutrition 1,920 ML 80 ML IV (21:09)
[2024-09-16] VITALS (12 sets, daily range): BP systolic 132–174; BP diastolic 70–82; PULSE 77–114; RESP 10–28; TEMP 36.3–36.7; O2SAT 80–97
[2024-09-16] MEDS: 0.9 % Sodium Chloride Flush 3 ML SYRINGE IVFLUSH ×3 (01:55→15:30)
[2024-09-16] MEDS: Meropenem 1 GM VIAL IVPUSH (01:57)
[2024-09-16] MEDS: Acetaminophen 1,000 MG/100 ML PIGGYBACK 400 MG IV (03:51)
[2024-09-16 07:27] LABS: Albumin Level 2.3 g/dL (3.5-5.0); Anion Gap 11 (12-20); Blood Urea Nitrogen 18 mg/dL (9-16); Calcium 8.3 mg/dL (8.4-10.2); Carbon Dioxide 24 mmol/L (22-29); Chloride 111 mmol/L (96-108); Creatinine Clr Calc Pharmacy 122.5; Estimated Glomerular Filt Rate > 60; Glucose Random 134 mg/dL (60-115); Magnesium 2.4 mg/dL (1.6-2.6); Phosphorus 2.5 mg/dL (2.7-4.5); Potassium 3.3 mmol/L (3.3-5.1); Sodium 143 mmol/L (135-145)
--- NOTE | 2024-09-16 08:42 | P.EN_ITS ---
Event Note Date of Service: 09/16/24 Event Note: Patient is hypoxic, SaO2 in 80s despite 100% fiO2, 55 Lpm via HFNC plus 100% NRB. His prognosis is extremely poor given cavitary/necrotizing pneumonia, severe dementia, and severe protein-calorie malnutrition. It is our clinical opinion that further curative treatment [artificial ventilation, artificial nutrition, antibiotics, etc.] are likely to be futile and only prolong the patient's suffering. 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 I spoke to his stepdaughter Alcides by phone and updated her on the plan. She expressed gratitude for our ongoing care and agrees with AIRPORT MAINTENANCE LABORER status. However, she does not have HCP or guardianship for the patient. I have left an urgent message with his guardian Sita Pace. She does not herself have the legal authority to change the code status. We are doing this based on the opinion of two concurring doctors and with guidance from the pulmononology oracle iam consultant. Time Spent With Patient Time: Total time managing care of this patient today ____ minutes.
[2024-09-16 08:51] LABS: ABG Refer to POC result
[2024-09-16 08:51] LABS: ABG Refer to POC result
--- NOTE | 2024-09-16 08:54 | MHC.CM.PN ---
Per , pt. to change to PHOSPHORIC ACID OPERATOR today. Guardian and dtr informed by KORI and . KORI also contacted pt.'s sister: Nate: [phone] to inform her.
--- NOTE | 2024-09-16 08:54 | PM.EVENT ---
Event Note Date of Service: 09/16/24 Event Note: I concur with the primary provider's assessment and recommendation to transition the patient to comfort measures only (CATEGORY DIRECTOR) status. Given the patient's severe hypoxia (SaO2 in the 80s despite 100% FiO2, 55 Lpm via HFNC plus 100% NRB), cavitary/necrotizing pneumonia, severe dementia, and severe protein-calorie malnutrition, the prognosis is extremely poor. Further curative interventions, including artificial ventilation, artificial nutrition, and antibiotics, are likely futile and would only prolong the patient's suffering. The decision to change the code status to DNR/DNI and transition to CATEGORY DIRECTOR is supported by the clinical findings and aligns with the pulmonology access consultant's guidance. The stepdaughter Alcides, while not the legal healthcare proxy or guardian, has been informed and agrees with the plan, expressing gratitude for the care provided. Likewise Patient's legal guardian Sita Mcbrideoner concur with decision to transition to comfort measures only despite legal to make such decision herself. Time Spent With Patient Time: Total time managing care of this patient today ____ minutes.
[2024-09-16] MEDS: Morphine Sulfate 2 MG/ML CARTRIDGE IVPUSH ×2 (10:19→23:21)
[2024-09-16] MEDS: Scopolamine 1.5 MG PATCH.TD.3 TRANSDERMA (10:19)
--- NOTE | 2024-09-16 10:23 | MHC.CLN ---
F/U PT'S CODE STATUS CHANGED TO PRODUCT MANAGEMENT MANAGER PT TO REMAIN NPO DISCUSSED WITH PHARMACY TO D/C PPN WILL FOLLOW WITH TEAM AND PROVIDE SUPPORT NEEDED
--- NOTE | 2024-09-16 11:48 | PC.NURSE ---
Oxygen saturation as low as 80% this am on High flow, mouth suction done , RT incresed oxygen supply at max on High flow per MD instructions. O 2 sat still 82-84% , Nonrebrether placed , still labor breathing and 02 88%. Per MD order pt CT TECHNOLOGIST. oxygen supply for comfort
--- NOTE | 2024-09-16 14:23 | HO.PM.IMPN ---
Subjective Subjective Date of Service: 09/16/24 Interval History: hypoxic this AM to 80s despite 55 Lpm + 100% fiO2 HFNC and 15 Lpm NRB somnolent, minimally responsive after discussion with 2nd MD and Pulmonology, patient transitioned to [employer] WORKERS care guardian and family updated; they are in agreement that this is most in accordance with the pt's imputed desires Review of Systems Review of Systems: Yes Unobtainable due to mental status Physical Exam Vital Signs: Vital Signs: Last Vital Signs Temp 97.3 F 09/16/24 08:00 Pulse 100 09/16/24 08:00 Resp 20 09/16/24 08:29 BP 139/73 09/16/24 08:00 Pulse Ox 84 L 09/16/24 08:25 O2 Del Method High Flow Nasal C annula, Non-Rebrea ther Mask 09/16/24 08:25 O2 Flow Rate 50 09/16/24 08:25 FiO2 100 09/16/24 08:25 BMI result Body Mass Index 22.8 Gen: ill-appearing, cachectic HEENT: sclera anicteric, moist mucus membranes Neck: supple Lungs: diminished Heart: regular rate and rhythm, no murmurs Abd: soft, non-tender, non-distended Ext: no edema Skin: warm/well-perfused Neuro: somnolent, not following commands Psych: impaired insight Objective Data Active Medications Acetaminophen (Acetaminophen Supp 650 Mg Supp.Rect) 650 mg TN Q4H PRN PRN Reason: Fever >/= 100, Pain, mild 1-3 Diazepam (Diazepam 10 Mg/2 Ml Cartridge) 10 mg IVPUSH Q4H PRN PRN Reason: anxiety/agitation/myoclonus Morphine Sulfate (Morphine Sulfate 2 Mg/Ml Cartridge) 2 mg IVPUSH Q1H PRN PRN Reason: Pain, Severe (7-10)/ RR>/=24 Last Admin: 09/16/24 10:19 Dose: 2 mg Documented By: JAVAD Scopolamine (Scopolamine 1.5 Mg Patch.Td.3) 1.5 mg TRANSDERMA Q72H [facility] Last Admin: 09/16/24 10:19 Dose: 1.5 mg Documented By: JAVAD Sodium Chloride (0.9 % Sodium Chloride Flush 3 Ml Syringe) 3 ml IVFLUSH QSHIFT [facility] Last Admin: 09/16/24 10:22 Dose: 3 ml Documented By: JAVAD Labs 09/11/24 11:03 09/16/24 06:49 Labs: Laboratory Results - last 24 hr 09/16/24 06:49 Hold Purple Top SEE NOTE Anion Gap 11 L Estim Creat Clear Calc 122.5 Estimated GFR > 60 Random Glucose 134 H Calcium 8.3 L Phosphorus 2.5 L Magnesium 2.4 Albumin 2.3 L Microbiology Microbiology Results: Microbiology 09/10/24 12:34 Blood Culture - Final Blood - Venous No growth after 5 days. Assessment and Plan (1) Aspiration pneumonia: Status: Acute Plan d7 for 84yo M with advanced Alzheimer's dementia, HTN, and dysphagia sent in for fever and lethargy from Rehab where he is a long-term care resident, admitted for hypoxia due to recurrent aspiration PNA acute hypoxic respiratory failure due to recurrent aspiration PNA Klebsiella pneumoniae bacteremia severe protein calorie malnutrition advanced Alzheimer's and vascular dementia - transitioned to CROP FARM WORKERS care, discontinued PPN - morphine for pain/dyspnea, diazepam for anxiety/agitation, scopolamine patch - family updated by phone and at bedside VTE ppx - not indicated In my clinical judgment, the patient requires continued inpatient hospitalization for the following reasons: [employer] WORKERS care Total time managing care of this patient today: 50 minutes. Quality Stroke Does the patient have a stroke diagnosis?: No VTE Prior VTE?: No VTE Risk Level:: Medical - moderate - high VTE Device Contraindication: Treatment Not Indicated VTE Drug Contraindication: N/A - Med Ordered
[2024-09-16] MEDS: diazePAM 10 MG/2 ML CARTRIDGE IVPUSH (15:40)
--- NOTE | 2024-09-16 15:47 | PC.NURSE ---
RR 26, restless, moaning , facial grimacing , medicated with Diazepam
--- NOTE | 2024-09-17 03:19 | PM.EVENT ---
Event Note Date of Service: 09/17/24 Event Note: Note I was called to pronounce the patient. Physical exam remarkable for no pulse, no heart sounds, no spontaneous respirations, pupils fixed and dilated and no respond to verbal or painful stimuli. The patient was pronounced at 12:51 AM on 07/18/2024. Tried to contact patient's daughter and guardianship to let them know about Mr. Yung's but, no answer. I left a voicemail. Time Spent With Patient Time: Total time managing care of this patient today ____ minutes.
--- NOTE | 2024-09-17 07:54 | PM.DDS ---
Discharge Sum: Prov Provider Primary care physician: Shannan Ling MD Consults: 09/10/24 18:53 Consult to Wound Care Routine Reason for consultation: bilateral skin tears, stage II coccyx, unstageable to right footx2 09/11/24 07:24 Consult to Pulmonology Routine Consulting Provider: [facility] Reason for consultation: Cavitary Lesions Has provider been notified: Yes 09/11/24 07:25 Consult to Infectious Diseases Routine Consulting Provider: [facility] Reason for consultation: Cavitary lesion Has provider been notified: Yes 09/13/24 14:10 Consult to Infectious Diseases Routine Consulting Provider: [facility] Reason for consultation: On meropenem for bacteremia and UTI 09/15/24 07:35 Ethics Eval Routine Comment: Pt condition declining, Full code despite guardian 09/15/24 08:35 Consult to Pulmonology Routine Consulting Provider: [facility] Reason for consultation: follow up consult- prognosis? Pronouncing clinician: Alejandro Oviedo Discharge Sum: Diag PCOD Cause of : Respiratory failure with hypoxia Contributing Factors (1) Aspiration pneumonia: (2) Cavitary pneumonia: (3) Acute respiratory failure with hypoxemia: (4) Dementia with behavioral disturbance: (5) Bacteremia due to Klebsiella pneumoniae: (6) Severe protein-calorie malnutrition: (7) Dysphagia: Discharge Sum: Summary Date and Time Date of admission: 09/10/24 13:37 Date of : 09/17/24 Time of : 00:51 Summary Details: from admission H+P 09/10/24 by Gabriel Lim, DO: 84-year-old male with past medical history of dysphagia, UTI with Klebsiella, dementia, hypertension under guardianship long-term resident of [facility] [place] presents with agitation and subsequent shortness of breath and likely aspiration pneumonia. Patient recently discharged from [facility] after prolonged hospitalization (greater than 6 months). .. See previous notes for detail. Recent discharge 09/07. Was on cefepime at [facility] however failed outpatient therapies. Presents after choking episode x-ray suspicious for aspiration pneumonia 84yo M with advanced Alzheimer's dementia, HTN, and dysphagia sent in for fever and lethargy from Rehab where he is a long-term care resident, admitted for hypoxia due to recurrent aspiration PNA. He was admitted to the telemetry unit and treated with supplemental oxygen and broad-spectrum antibiotics. Pulmonology was consulted due to finding of cavitary pneumonia. He was found to be bacteremic with Klebsiella pneumoniae. Due to malnutrition, dysphagia, and encephalopathy, parenteral nutrition was also started. Unfortunately, his respiratory status worsened and he became severely hypoxic despite maximum non-invasive oxygen support. His prognosis was extremely poor given cavitary/necrotizing pneumonia, severe dementia, and severe protein-calorie malnutrition. It was our clinical opinion that further curative treatment [artificial ventilation, artificial nutrition, antibiotics, etc.] wee likely to be futile and only prolong the patient's suffering. I spoke to his stepdaughter Alcides as well as his sister Nate by phone. They expressed gratitude for our ongoing care and agreed with our decision to transition him to BLEACH RANGE OPERATOR status. We spoke to his legal guardian Sita Pace. She did not herself have the legal authority to change the code status. We transitioned him to BLEACH RANGE OPERATOR based on the opinion of two concurring doctors and with guidance from the pulmonology bus info consultant. He on 09/17/24 at 00:51 without apparent distress. Family and guardian were notified and condolences offered. Additional Data Confirmation of as documented by pronouncing clinician: no pulse, no respirations, no heart sounds and pupils fixed and dilated Family: attempt made Attending physician: Lizbeth Baker MD Was code activated?: No Autopsy requested?: No fur examiner notified?: No Hospice patient?: Yes
--- NOTE | 2024-09-18 15:59 | P.CDIM_ITS ---
PROVIDER RESPONSE TEXT: To clarify, the appropriate diagnosis supported by the clinical indicators: Deep Tissue Injury right ankle: suspected QUERY TEXT: PHYSICIAN'S DOCUMENTATION REQUEST Date of Query: 09/16/2024 08:12 AM EDT Patient Name: Pernell Yung Admit Date: 09/10/2024 Dear Lizbeth Baker MD, A review of the medical record indicates additional documentation may be needed. Please review below and update the documentation accordingly. Clinical Indicators: Wound care notes 09/15/24 - Deep Tissue Injury Right ankle, Present on admission. Purple red non-blanchable with epidermal lifting. Off load pressure. Foam dressing for moist wound healing. Based on the above, could you please provide further information regarding the ulcer/wound/injury: Deep Tissue Injury right ankle possible, probable, cannot rule out, suspected etc. Pressure (decubitus) ulcer Other specified Other (explain) Clinically unable to determine (explain) Thank you, Reena Garcia, CCS, CDIS Use of terms such as suspected, likely, concern for, or probable (associated with a specific diagnosi s that is being evaluated, monitored, or treated as if it exists) are acceptable and can be coded in the inpatient se tting, when documented at the time of discharge. Please use your independent medical judgment in providing your response. THIS QUERY IS PART OF THE PERMANENT MEDICAL RECORD
--- NOTE | 2024-09-18 15:59 | P.CDIM_ITS ---
PROVIDER RESPONSE TEXT: To clarify, the appropriate diagnosis supported by the clinical indicators: Deep Tissue Injury sacrum: suspected QUERY TEXT: PHYSICIAN'S DOCUMENTATION REQUEST Date of Query: 09/16/2024 08:10 AM EDT Patient Name: Pernell Yung Admit Date: 09/10/2024 Dear Lizbeth Baker MD, A review of the medical record indicates additional documentation may be needed. Please review below and update the documentation accordingly. Clinical Indicators: Wound care notes 09/15/24 - DTI sacrum, Present on admission Purple red non-blanchable intact tissue. Off load pressure. Based on the above, could you please provide further information regarding the ulcer/wound/injury: Deep Tissue Injury sacrum possible, probable, suspected etc. Pressure (decubitus) ulcer Other specified Other (explain) Clinically unable to determine (explain) Thank you, Reena Garcia, CCS, CDIS Use of terms such as suspected, likely, concern for, or probable (associated with a specific diagnosi s that is being evaluated, monitored, or treated as if it exists) are acceptable and can be coded in the inpatient se tting, when documented at the time of discharge. Please use your independent medical judgment in providing your response. THIS QUERY IS PART OF THE PERMANENT MEDICAL RECORD
== END 2024-09-17 00:51 | disposition expired | DRG 177 ==
LOC: HO.ED 13:31 → HO.EDOVER 13:47 → HO.S3 14:49 → HO.IMC 09-13 15:29
PROVIDERS: Internal Medicine; Student in an Organized Health Care Education/Training Program; Admitting Provider Hospitalist; Emergency Provider Emergency Medicine; PCP Internal Medicine; Visit Provider Family Medicine
DX: J69.0 Pneumonitis due to inhalation of food and vomit (principal); E43 Unspecified severe protein-calorie malnutrition; J96.01 Acute respiratory failure with hypoxia; G93.41 Metabolic encephalopathy; E87.21 Acute metabolic acidosis; E87.0 Hyperosmolality and hypernatremia; F02.818 Dementia in other diseases classified elsewhere, unspecified severity, with other behavioral disturbance; N39.0 Urinary tract infection, site not specified; R78.81 Bacteremia; J98.4 Other disorders of lung; Z66 Do not resuscitate; E83.51 Hypocalcemia; Z51.5 Encounter for palliative care; G30.9 Alzheimer's disease, unspecified; I10 Essential (primary) hypertension; R13.10 Dysphagia, unspecified; E83.39 Other disorders of phosphorus metabolism; B96.1 Klebsiella pneumoniae [K. pneumoniae] as the cause of diseases classified elsewhere; E87.6 Hypokalemia; B96.89 Other specified bacterial agents as the cause of diseases classified elsewhere; L89.156 Pressure-induced deep tissue damage of sacral region; L89.516 Pressure-induced deep tissue damage of right ankle; Z68.22 Body mass index [BMI] 22.0-22.9, adult; Z20.822 Contact with and (suspected) exposure to COVID-19; Z79.899 Other long term (current) drug therapy
CPT/HCPCS: 0241U; 36415; 36600; 71045; 71250; 80048; 80053; 80076; 80202; 82040; 82550; 82565; 82803; 83605; 83690; 83735; 83880; 84100; 84145; 84478; 85007; 85025; 85027; 86140; 87040; 87077; 87186; 87205; 87640; 87641; 93005; 99285; J0131; J0613; J0692; J1650; J1836; J2185; J2270; J3360; J3370; J3371; J3480; J7120; P9047

== ENCOUNTER → 2024-09-10 11:50 | Outpatient (BNV) | payer MEDICARE, SELFPAY | PROVIDERS: Admitting Provider Hospitalist; Emergency Provider Emergency Medicine; Visit Provider Internal Medicine Cardiovascular Disease | DX: R94.31 Abnormal electrocardiogram [ECG] [EKG] (principal); R06.00 Dyspnea, unspecified | CPT/HCPCS: 93010 ==

== ENCOUNTER → 2024-09-10 11:51 | Outpatient (BNV) | payer MEDICARE, SELFPAY | PROVIDERS: Admitting Provider Hospitalist; Emergency Provider Emergency Medicine; Visit Provider Radiology Diagnostic Radiology | DX: J98.4 Other disorders of lung (principal) | CPT/HCPCS: 71045 ==

== ENCOUNTER → 2024-09-10 13:37 | Outpatient (BNV) | payer MEDICARE, SELFPAY | PROVIDERS: Admitting Provider Hospitalist; Emergency Provider Emergency Medicine; Visit Provider Internal Medicine Pulmonary Disease | DX: J69.0 Pneumonitis due to inhalation of food and vomit (principal); J85.2 Abscess of lung without pneumonia; T17.900A Unspecified foreign body in respiratory tract, part unspecified causing asphyxiation, initial encounter | CPT/HCPCS: 99222 ==

== ENCOUNTER → 2024-09-10 13:37 | Outpatient (BNV) | payer MEDICARE, SELFPAY | PROVIDERS: Admitting Provider Hospitalist; Emergency Provider Emergency Medicine; Visit Provider Internal Medicine | DX: T17.900A Unspecified foreign body in respiratory tract, part unspecified causing asphyxiation, initial encounter (principal); J85.2 Abscess of lung without pneumonia; R09.02 Hypoxemia; A41.9 Sepsis, unspecified organism; N39.0 Urinary tract infection, site not specified | CPT/HCPCS: 99222 ==

== ENCOUNTER → 2024-09-10 13:37 | Outpatient (BNV) | payer MEDICARE, SELFPAY | PROVIDERS: Admitting Provider Hospitalist; Emergency Provider Emergency Medicine; Visit Provider Hospitalist | DX: J69.0 Pneumonitis due to inhalation of food and vomit (principal) | CPT/HCPCS: 99223; 99232; 99233; 99499 ==